=== PATIENT | female | born 1950 | race Caucasian/White ===

== ENCOUNTER → 2016-09-12 | Outpatient (CLI) | payer OTHER ==
[~2016-09-12] MED LIST: AC325T PO; ALPR.25T PO; ALPR0.25 PO; ASP325T PO; ASP81TEC PO; BUPR150T6 PO; CHOL10003; CPR500T; CTLP20T PO; DABI150C2 PO; DIAZEPAM 2.5 MG PO; DILT180C PO; DILT180C54 PO; DILT180C55 PO; ELIQUIS PO; FLT05NA16 NS; HCT25T; HYDR-3812 PO; HYDR1CAP2; HYOS0.1217 PO; LEVO75TA57 PO; MECL25TA56 PO; METO10TA3 PO; NAPR-689 PO; NITR-65 PO; OLME20TA5; OLME40TA14 PO; OMEP20TA33 PO; ONDAN4ODT PO; ONDN4T PO; PANT40SU PO; PNT40TEC; PNT40TEC PO; PROP225C6 PO; PROP225T2 PO; RIVA20TA PO; RIVA20TA2 PO; RNT150T; SCR1T1 PO; SENN-20 PO; SIME125C PO; SIME125T9 PO; TRM50T PO; VALS320T8; [UNRECOGNIZED DRUG - OTHER]; iron sulfate PO
[2016-09-12 10:25] LABS: RED BLOOD COUNT 4.29 10^6/uL (4.35-5.85); WHITE BLOOD COUNT 6.2 10^3/uL (4.3-11.0)
[2016-09-12 10:47] LABS: ALBUMIN 4.1 G/DL (3.2-4.5); BILIRUBIN,TOTAL 0.6 MG/DL (0.1-1.0); CALCIUM 9.6 MG/DL (8.5-10.1); CREATININE SERUM 1.16 MG/DL (0.60-1.30); POTASSIUM 4.5 MMOL/L (3.6-5.0); TOTAL PROTEIN 7.6 G/DL (6.4-8.2)
== END ==
LOC: LAB 10:08
PROVIDERS: ATTEND Internal Medicine Cardiovascular Disease
DX: I10 Essential (primary) hypertension (principal); I48.0 Paroxysmal atrial fibrillation; K92.2 Gastrointestinal hemorrhage, unspecified; F41.9 Anxiety disorder, unspecified; R07.89 Other chest pain
CPT/HCPCS: 36415; 80053; 80061; 85027

== ENCOUNTER 2016-12-07 20:58 | Emergency (ER) | payer OTHER ==
[~2016-12-07] VITALS: Ht 167.6 cm; Wt 93.4 kg
--- NOTE | 2016-12-07 21:14 | ED General ---
General Chief Complaint: General Problems/Pain Stated Complaint: STOMACH PAIN Nursing Triage Note: PT STATES THAT SHE ATE A STEAK ON SUNDAY AND SHE "FEELS LIKE IT IS STILL STUCK INSIDE HER". PT STATES SHE HAS GAINED 6 POUNDS IN 2 DAYS. PT COMPLAINS OF VERY LITTLE BOWEL MOVEMENTS. Nursing Sepsis Screen: No Definite Risk Source of Information: Patient Exam Limitations: No Limitations (MARGO SAXENA APRN) History of Present Illness Time Seen by Provider: 21:12 Initial Comments to ER with reports of constipation. She states that she ate a steak on Sunday and since still not had a significant bowel movement. Intermittent nausea but no vomiting. No fevers or chills. She is currently being treated for urinary tract infection with Cipro. Timing/Duration: 3-4 Days Severity: Moderate Associated Systoms: No Fever/Chills, No Nausea/Vomiting (MARGO SAXENA APRN) Allergies and Home Medications Allergies Coded Allergies: Beta-Blockers (Beta-Adrenergic Bloc (Unverified Allergy, Unknown, 11/20/12) atenolol (Verified Allergy, Unknown, 04/05/07) Home Medications Diltiazem HCl 180 Mg Cap.er.24h, 180 MG PO HS, (Reported) Nitrofurantoin Monohyd/M-Cryst 100 Mg Capsule, 1 TAB PO BID for 7 Days Prescribed by: QASIM CASTILLO on 12/26/15 1209 Pantoprazole Sodium 40 Mg Granpkt.dr, 40 MG PO DAILY, (Reported) Propafenone HCl 225 Mg Cap, 225 MG PO TID, (Reported) Rivaroxaban 20 Mg Tablet, 20 MG PO HS, (Reported) Sennosides/Docusate Sodium 1 Each Tablet, 1 EA PO BID, #30 Prescribed by: ANTHONY PERDOMO on 12/26/15 0950 Constitutional: see HPI, No chills, No fever EENTM: see HPI Respiratory: no symptoms reported Cardiovascular: no symptoms reported Genitourinary: no symptoms reported Musculoskeletal: no symptoms reported Skin: no symptoms reported Psychiatric/Neurological: No Symptoms Reported (MARGO SAXENA APRN) Past Pncaajx-Rqgqzu-Fjdvtw Hx Patient Social History Recent Foreign Travel: No Contact w/Someone Who Travel: No Recent Infectious Disease Expo: No (MARGO SAXENA APRN) Immunizations Up To Date Tetanus Booster (TDap): Unknown PED Vaccines UTD: No Date of Pneumonia Vaccine: Mar 11, 2011 Date of Influenza Vaccine: May 04, 2014 (MARGO SAXENA APRN) Seasonal Allergies Seasonal Allergies: Yes (MARGO SAXENA APRN) Surgeries HX Surgeries: Yes Surgeries: Abdominal, Appendectomy, Cardiac, Section, Gallbladder, 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, Oophorectomy, Orthopedic (MARGO SAXENA APRN) Respiratory Hx Respiratory Disorders: No (MARGO SAXENA APRN) Cardiovascular Hx Cardiac Disorders: Yes (RBBB) Cardiac Disorders: Atrial Fibrillation, Hypertension (MARGO SAXENA APRN) Neurological Hx Neurological Disorders: Yes Neurological Disorders: Headaches /Migraines, Neuropathy (MARGO SAXENA APRN) 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 System Hx 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 Disorders: No Sexually Transmitted Disease: No HIV/AIDS: No Female 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 Disorders: Denies STUDIO GRIP History: 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 (MARGO SAXENA APRN) Genitourinary Hx Genitourinary Disorders: Yes (RENAL INSUFFICIENCY) Genitourinary Disorders: Kidney Infection, Bladder Infection, Renal Failure (MARGO SAXENA APRN) Gastrointestinal Hx Gastrointestinal Disorders: Yes Gastrointestinal Disorders: Gastroesophageal Reflux, Gastrointestinal Bleed, Hiatal Hernia, Gall Bladder Disease (MARGO SAXENA APRN) Musculoskeletal Hx Musculoskeletal Disorders: Yes (KNEES, BACK, HIPS) Musculoskeletal Disorders: Arthritis, Chronic Back Pain (MARGO SAXENA APRN) Endocrine Hx Endocrine Disorders: Yes (Pre Diabetic) Endocrine Disorders: Diabetes, Non-Insulin dep (MARGO SAXENA APRN) HEENT HX ENT Disorders: No Loss of Vision: Denies Hearing Impairment: Denies (MARGO SAXENA APRN) Cancer Hx Cancer: Yes ("SPINAL CORD CANCER" LATE , S/P SURGERY, RADIATION, CHEMO VIA SHUNT) Cancer: Bone (MARGO SAXENA APRN) Psychosocial Hx Psychiatric Problems: Yes Behavioral Health Disorders: Anxiety (MARGO SAXENA APRN) Integumentary HX Skin/Integumentary Disorder: No (MARGO SAXENA APRN) Blood Transfusions Hx Blood Disorders: No Adverse Reaction to a Blood Tr: No (MARGO SAXENA APRN) Family Medical History Significant Family History: Heart Disease Family Medial History: Arthritis 19 MOTHER, Onset:30's - 40 (RA) Cardiovascular disease 19 MOTHER, Onset:40's - 50 Completed stroke 19 MOTHER, Onset:60 years & older Headache disorder 19 FATHER, Onset:Unknown (severe sinus headaches) Hypertension 19 MOTHER, Onset:50's - 60 Myocardial infarction 19 MOTHER, Onset:60 years & older Psychosocial problem 19 FATHER, Onset:Unknown No Family History of: AIDS Abdominal aortic aneurysm Tyler's disease Alcoholism Alzheimer's disease Aphasia Asthma Cancer of mouth Cataracts Colon cancer Congenital disease Congenital heart disease Coronary thrombosis Cystic fibrosis Deafness or hearing loss Dementia Diabetes mellitus Drug abuse Dysphasia Fibrocystic disease of breast Gastroenteritis Glaucoma Hypercholesterolemia Infertility Kidney disease Neoplasm Not obtainable due to adoption Osteoporosis Parkinson's disease Prostate cancer Respiratory disorder Seizure disorder Severe allergy Thyroid disease Tuberculosis Visual disorder (MARGO SAXENA APRN) Family Medial History: Arthritis 19 MOTHER, Onset:30's - 40 (RA) Cardiovascular disease 19 MOTHER, Onset:40's - 50 Completed stroke 19 MOTHER, Onset:60 years & older Headache disorder 19 FATHER, Onset:Unknown (severe sinus headaches) Hypertension 19 MOTHER, Onset:50's - 60 Myocardial infarction 19 MOTHER, Onset:60 years & older Psychosocial problem 19 FATHER, Onset:Unknown No Family History of: AIDS Abdominal aortic aneurysm Sundeep's disease Alcoholism Alzheimer's disease Aphasia Asthma Cancer of mouth Cataracts Colon cancer Congenital disease Congenital heart disease Coronary thrombosis Cystic fibrosis Deafness or hearing loss Dementia Diabetes mellitus Drug abuse Dysphasia Fibrocystic disease of breast Gastroenteritis Glaucoma Hypercholesterolemia Infertility Kidney disease Neoplasm Not obtainable due to adoption Osteoporosis Parkinson's disease Prostate cancer Respiratory disorder Seizure disorder Severe allergy Thyroid disease Tuberculosis Visual disorder (BABAK PINEDO MD) Physical Exam Vital Signs Vital Sign - Last 12Hours 12/07/16 21:07 Temp 97.8 Pulse 86 Resp 20 B/P (MAP) 201/87 Pulse Ox 99 O2 Delivery Room Air (BABAK PINEDO MD) Vital Signs Capillary Refill : Less Than 3 Seconds (MARGO SAXENA APRN) General Appearance: No Apparent Distress, WD/WN Eyes: Bilateral Eye EOMI, Bilateral Eye Normal Inspection, Bilateral Eye PERRL HEENT: PERRL/EOMI, TMs Normal Neck: Full Range of Motion, Normal Inspection Respiratory: Normal Breath Sounds, No Accessory Muscle Use, No Respiratory Distress Cardiovascular: Regular Rate, Rhythm, Normal Peripheral Pulses Gastrointestinal: Normal Bowel Sounds, Non Tender, Soft Back: No Vertebral Tenderness Extremity: Normal Capillary Refill, Normal Inspection Neurologic/Psychiatric: Alert, Oriented x3, No Motor/Sensory Deficits Skin: Normal Color, Warm/Dry (MARGO SAXENA APRN) Progress/Results/Core Measures Results/Orders Lab Results Laboratory Tests Test 12/07/16 21:06 12/07/16 21:46 12/07/16 22:47 12/07/16 23:17 Range/Units White Blood Count 9.6 4.3-11.0 10^3/uL Red Blood Count 3.71 L 4.35-5.85 10^6/uL Hemoglobin 10.4 L 11.5-16.0 G/DL Hematocrit 33 L 35-52 % Mean Corpuscular Volume 88 80-99 FL Mean Corpuscular Hemoglobin 28 25-34 PG Mean Corpuscular Hemoglobin Concent 32 32-36 G/DL Red Cell Distribution Width 15.3 H 10.0-14.5 % Platelet Count 318 130-400 10^3/uL Mean Platelet Volume 9.8 7.4-10.4 FL Neutrophils (%) (Auto) 56 42-75 % Lymphocytes (%) (Auto) 33 12-44 % Monocytes (%) (Auto) 9 0-12 % Eosinophils (%) (Auto) 2 0-10 % Basophils (%) (Auto) 1 0-10 % Neutrophils # (Auto) 5.3 1.8-7.8 X 10^3 Lymphocytes # (Auto) 3.1 1.0-4.0 X 10^3 Monocytes # (Auto) 0.9 0.0-1.0 X 10^3 Eosinophils # (Auto) 0.2 0.0-0.3 10^3/uL Basophils # (Auto) 0.1 0.0-0.1 10^3/uL Sodium Level 142 135-145 MMOL/L Potassium Level 3.8 3.6-5.0 MMOL/L Chloride Level 112 H 98-107 MMOL/L Carbon Dioxide Level 20 L 21-32 MMOL/L Anion Gap 10 5-14 MMOL/L Blood Urea Nitrogen 29 H 7-18 MG/DL Creatinine 1.24 0.60-1.30 MG/DL Estimat Glomerular Filtration Rate 44 BUN/Creatinine Ratio 23 Glucose Level 48 *L 70-105 MG/DL Calcium Level 9.9 8.5-10.1 MG/DL Total Bilirubin 0.3 0.1-1.0 MG/DL Aspartate Amino Transf (AST/SGOT) 19 5-34 U/L Alanine Aminotransferase (ALT/SGPT) 16 0-55 U/L Alkaline Phosphatase 89 40-136 U/L Total Protein 8.0 6.4-8.2 GM/DL Albumin 4.2 3.2-4.5 GM/DL Lipase 59 8-78 U/L Urine Color YELLOW Urine Clarity CLEAR Urine pH 6 5-9 Urine Specific [place] 1.010 L 1.016-1.022 Urine Protein NEGATIVE NEGATIVE Urine Glucose (UA) NEGATIVE NEGATIVE Urine Ketones NEGATIVE NEGATIVE Urine Nitrite NEGATIVE NEGATIVE Urine Bilirubin NEGATIVE NEGATIVE Urine Urobilinogen NORMAL NORMAL MG/DL Urine Leukocyte Esterase 1+ H NEGATIVE Urine RBC (Auto) NEGATIVE NEGATIVE Urine RBC NONE /HPF Urine WBC NONE /HPF Urine Squamous Epithelial Cells 0-2 /HPF Urine Crystals NONE /LPF Urine Bacteria NONE /HPF Urine Casts NONE /LPF Urine Mucus NEGATIVE /LPF Urine Culture Indicated NO Glucometer 83 89 70-110 MG/DL (BABAK PINEDO MD) Medications Given in ED Current Medications Medications Dose Ordered Sig/Larry Route Start Time Stop Time Status Last Admin Dose Admin Dextrose 25 ml ONCE ONCE IV 12/07/16 22:00 12/07/16 22:01 DC 12/07/16 21:56 25 ML Ondansetron HCl 4 mg ONCE ONCE IVP 12/07/16 21:15 12/07/16 21:16 DC 12/07/16 21:38 4 MG (BABAK PINEDO MD) Vital Signs/I&O Vital Sign - Last 12Hours 12/07/16 21:07 Temp 97.8 Pulse 86 Resp 20 B/P (MAP) 201/87 Pulse Ox 99 O2 Delivery Room Air (BABAK PINEDO MD) Blood Pressure Mean: 125 Progress Note : Progress Note CT report was reviewed and patient was dismissed per Margo Saxena' instructions. (BABAK PINEDO MD) Diagnostic Imaging Diagonstic Imaging: CT Plain Films/CT/US/NM/MRI: abdomen, pelvis Comments [facility] report of the CT abdomen and pelvis reviewed. There was abundant stool noted throughout the colon. No other acute abnormalities to account for patient 's symptoms were identified. (BABAK PINEDO MD) Departure Impression Impression: Primary Impression: Constipation Disposition: 01 HOME, SELF-CARE Condition: Stable Departure-Patient Inst. Decision time for Depature: 23:16 (MARGO SAXENA APRN) Referrals: ANTHONY PERDOMO DO (PCP/Family) Primary Care Physician Patient Instructions: Constipation in Adults Add. Discharge Instructions: 1. Laxative as directed. Take one cap full dissolved in a full Glass of water every 6 hours until bowel movement. If you take more than 5 capfuls in one day without bowel movement you should return to the emergency room or follow-up with your regular doctor. 2. Return to ER for any concerns 3. See her doctor next week All discharge instructions reviewed with patient and/or family. Voiced understanding. MARGO SAXENA APRN Dec 07, 2016 21:14 BABAK PINEDO MD Dec 08, 2016 00:05
[2016-12-07] MEDS ORDERED: ONDANSETRON 4 MG/2 ML (SDV) Z0FRAN IVP ONE (21:15)
--- OUTSIDE RECORDS SUMMARY | 2016-12-07 21:18 | XMS REPORT | Continuity of Care Document ---
Author Author [facility] Organization [facility] Address Unknown Phone Unavailable Care Team Providers Care Miller Supervisor Name Role Phone Joyce Sahu PCP [phone] Source Comments Some departments are not documenting in the electronic medical record. If you do not see the information that you expected, contact Release of Information in the Health Information Management department at [phone] for further assistance in locating additional records.[facility] Active Allergies and Adverse Reactions Allergen Noted Date Severity Reactions Comments Atenolol 06/26/2007 HYPOTENSION Beta-Blockers 08/13/2007 SHORTNESS OF BREATH, (Beta-Adrenergic Blocking HYPOTENSION Agts) Current Medications Prescription Sig. Disp. Refills Start End Date Status Date olmesartan (BENICAR) 20 Take 20 mg by mouth Active mg tablet Daily. pantoprazole DR,+, Take 40 mg by mouth Twice Active (PROTONIX) 40 mg tablet Daily. ranitidine,+, (ZANTAC) Take 150 mg by mouth Active 150 mg tablet Twice Daily. diazepam (VALIUM) 5 mg Take 5 mg by mouth Every Active tablet 6 Hours as needed for Anxiety. tramadol,+, (ULTRAM) 50 Take 50 mg by mouth Every Active mg tablet 6 Hours as needed for Pain. hydrocodone/acetaminophen Take 1 Tab by mouth Every Active (VICODIN) 5/500 mg tablet 4 Hours as needed for Pain. Usually takes 1/2 tab once daily propafenone (RYTHMOL) 225 Take 225 mg by mouth Active mg tablet three times daily. diltiazem CD (CARDIZEM Take 180 mg by mouth Active CD) 180 mg capsule daily. rivaroxaban (XARELTO) 20 Take 20 mg by mouth Active mg tab tablet daily. 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 Pulse 67 08/17/2015 2:06 PM MEDICAL RESEARCHER Temperature 36.6 C (97.8 F) 08/17/2015 2:06 PM MEDICAL RESEARCHER Respiratory Rate - - Height 1.676 m (5' 6") 08/17/2015 2:06 PM MEDICAL [employer]EARCHER Weight 92.987 kg (205 lb) 08/17/2015 2:06 PM MEDICAL RESEARCHER Body Mass Index 33.1 08/17/2015 2:06 PM MEDICAL RESEARCHER Oxygen Saturation 100% 08/17/2015 2:06 PM MEDICAL RESEARCHER Plan of Care Health Maintenance Due Date Last Done Comments Hepatitis C Screening 1952 Physical (Comprehensive) 1959 Exam Pertussis Vaccine 1963 Tetanus Vaccine 1969 Cervical Cancer Screening 1973 Breast Cancer Screening 1992 Colorectal Cancer 2002 Screening Shingles Vaccine 2012 Influenza Vaccine 02/09/2017 Results from Last 3 Months Not on file
[2016-12-07 21:19] LABS: BASOPHILS # (AUTO) 0.1 10^3/uL (0.0-0.1); BASOPHILS % (AUTO) 1 % (0-10); EOSINOPHILS # (AUTO) 0.2 10^3/uL (0.0-0.3); EOSINOPHILS % (AUTO) 2 % (0-10); LYMPHOCYTES # (AUTO) 3.1 X 10^3 (1.0-4.0); LYMPHOCYTES % (AUTO) 33 % (12-44); MEAN CORPUSCULAR HEMOGLOBIN 28 PG (25-34); MEAN CORPUSCULAR HGB CONC 32 G/DL (32-36); MEAN CORPUSCULAR VOLUME 88 FL (80-99); MEAN PLATELET VOLUME 9.8 FL (7.4-10.4); MONOCYTES # (AUTO) 0.9 X 10^3 (0.0-1.0); MONOCYTES % (AUTO) 9 % (0-12); NEUTROPHILS # (AUTO) 5.3 X 10^3 (1.8-7.8); NEUTROPHILS % (AUTO) 56 % (42-75); PLATELET COUNT 318 10^3/uL (130-400); RED BLOOD COUNT 3.71 10^6/uL (4.35-5.85); RED CELL DISTRIBUTION WIDTH 15.3 % (10.0-14.5); WHITE BLOOD COUNT 9.6 10^3/uL (4.3-11.0)
--- OUTSIDE RECORDS SUMMARY | 2016-12-07 21:19 | XMS REPORT | Continuity of Care Document ---
Author Author Formerly [facility] Address Unknown Phone Unavailable Allergies Active Description Code Type Severity Reaction Onset Reported/Identified Relationship to Patient Clinical Status Yes atenolol [id number] Drug Allergy Unknown N/A 04/05/2007 Yes Beta-Blockers (Beta-Adrenergic Bloc [id number] Drug Allergy Unknown N/A 11/20/2012 Yes atenolol Drug Allergy N/A N/A 05/27/2014 Medications Problems Date Dx Coded Attending Type Code Diagnosis Diagnosed By 04/09/2009 Ot 789.00 01/24/2011 Ot 300.4 DYSTHYMIC DISORDER 01/24/2011 Ot 401.9 HYPERTENSION NOS 01/24/2011 Ot 560.1 PARALYTIC ILEUS 01/24/2011 Ot 564.00 UNSPEC CONSTIPATION 01/24/2011 Ot 599.0 URIN TRACT INFECTION NOS 01/02/2012 Ot 275.2 DIS MAGNESIUM METABOLISM 01/02/2012 Ot 785.1 PALPITATIONS 06/15/2012 Ot 300.00 ANXIETY STATE NOS 06/15/2012 Ot 397.0 TRICUSPID VALVE DISEASE 06/15/2012 Ot 401.9 HYPERTENSION NOS 06/15/2012 Ot 424.0 MITRAL VALVE DISORDER 06/15/2012 Ot 427.31 ATRIAL FIBRILLATION 06/15/2012 Ot 530.81 ESOPHAGEAL REFLUX 06/15/2012 Ot 722.52 LUMB/LUMBOSAC DISC DEGEN 06/15/2012 Ot 786.50 CHEST PAIN NOS 06/15/2012 Ot V10.89 HX OF MALIGNANCY NEC 06/15/2012 Ot V17.49 FAMILY HISTORY OF OTHER CARDIOVASCULAR D 06/15/2012 Ot V58.69 OTH MED,LT,CURRENT USE 09/15/2012 Ot 427.31 ATRIAL FIBRILLATION 09/29/2012 Ot 401.9 HYPERTENSION NOS 09/29/2012 Ot 427.31 ATRIAL FIBRILLATION 09/29/2012 Ot 593.9 RENAL URETERAL DIS NOS 10/19/2012 ANTHONY PERDOMO DO Ot 300.00 ANXIETY STATE NOS 10/19/2012 RIGO PERDOMO DOQUELINE S Ot 401.9 HYPERTENSION NOS 10/19/2012 RIGO PERDOMO DOQUELINE S Ot 427.31 ATRIAL FIBRILLATION 10/19/2012 RIGO PERDOMO DOQUELINE S Ot 530.81 ESOPHAGEAL REFLUX 10/24/2012 BABAK PINEDO MD Ot 784.0 HEADACHE 10/24/2012 BABAK PINEDO MD Ot 787.02 NAUSEA ALONE 10/24/2012 BABAK PINEDO MD Ot 850.0 CONCUSSION W/O COMA 10/24/2012 BABAK PINEDO MD Ot 910.0 ABRASION HEAD 10/24/2012 BABAK PINEDO MD Ot 959.01 HEAD INJURY, NOS 10/24/2012 BABAK PINEDO MD Ot E000.8 OTHER EXTERNAL CAUSE STATUS 10/24/2012 BABAK PINEDO MD Ot E849.0 ACCIDENT IN HOME 10/24/2012 BABAK PINEDO MD Ot E888.1 FALL STRIKING OBJECT NEC 11/10/2012 BRENDAN QUINTEROS MD R Ot 427.31 ATRIAL FIBRILLATION 11/10/2012 ALDAIR BRADEN, BRENDAN R Ot 599.0 URIN TRACT INFECTION NOS 11/10/2012 ALDAIR BRADEN, BRENDAN R Ot 780.4 DIZZINESS AND GIDDINESS 11/10/2012 BRENDAN QUINTEROS MD R Ot V58.61 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S,LT,CURRENT USE 11/10/2012 BRENDAN QUINTEROS MD R Ot V58.69 OTH MED,LT,CURRENT USE 11/21/2012 BRAVO PERDOMO DOLINE S Ot 285.1 AC POSTHEMORRHAG ANEMIA 11/21/2012 RIGO PERDOMO DOQUELINE S Ot 300.00 ANXIETY STATE NOS 11/21/2012 RIGO PERDOMO DOQUELINE S Ot 401.9 HYPERTENSION NOS 11/21/2012 RIGO PERDOMO DOQUELINE S Ot 427.31 ATRIAL FIBRILLATION 11/21/2012 RIGO PERDOMO DOQUELINE S Ot 530.11 REFLUX ESOPHAGITIS 11/21/2012 RIGO PERDOMO DOQUELINE S Ot 530.81 ESOPHAGEAL REFLUX 11/21/2012 RIGO EPRDOMO DOQUELINE S Ot 578.9 GASTROINTEST HEMORR NOS 11/21/2012 ANTHONY PERDOMO DO Ot 593.9 RENAL URETERAL DIS NOS 11/21/2012 ANTHONY PERDOMO DO Ot E934.2 ADV EFF 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S 12/07/2012 MARIE HAN DO Ot 558.9 NONINF GASTROENTERIT NEC 12/07/2012 MARIE HAN DO Ot 560.1 PARALYTIC ILEUS 12/07/2012 MARIE HAN DO Ot 786.05 SHORTNESS OF BREATH 12/07/2012 MARIE HAN DO Ot 789.06 ABDOMINAL PAIN, EPIGASTRIC 12/07/2012 MARIE HAN DO Ot V58.69 OTH MED,LT,CURRENT USE 04/22/2014 ANTHONY PERDOMO DO Ot 401.9 HYPERTENSION NOS 04/22/2014 ANTHONY PERDOMO DO Ot 427.31 ATRIAL FIBRILLATION 04/22/2014 ANTHONY PERDOMO DO Ot V04.81 ND FOR PROPHYLACTIC VACCIN AND INOCULATI 05/18/2014 LARRY PLUNKETT MD Ot 250.00 DIAB [place] WO COMPL, TYPE II OR UNSPEC TY 05/18/2014 LARRY PLUNKETT MD Ot 300.00 ANXIETY STATE NOS 05/18/2014 LARRY PLUNKETT MD Ot 401.9 HYPERTENSION NOS 05/18/2014 LARRY PLUNKETT MD Ot 427.31 ATRIAL FIBRILLATION 05/18/2014 LARRY PLUNKETT MD Ot 530.81 ESOPHAGEAL REFLUX 05/18/2014 LARRY PLUNKETT MD Ot 553.3 DIAPHRAGMATIC HERNIA 05/18/2014 LARRY PLUNKETT MD Ot 786.09 RESPIRATORY ABNORM NEC 05/18/2014 LARRY PLUNKETT MD Ot 786.59 CHEST PAIN NEC 05/27/2014 BOOKER CARMONA APRN 300.00 ANXIETY UNSPEC 05/27/2014 BOOKER CARMONA APRN 401.1 BENIGN ESSENTIAL HYPERTENSION 06/24/2014 Ot 574.20 06/24/2014 Ot V72.81 06/24/2014 Ot V74.8 06/24/2014 Ot 715.96 06/24/2014 Ot 719.45 06/24/2014 Ot 786.09 06/24/2014 Ot 786.9 06/24/2014 Ot 786.09 06/24/2014 Ot 786.50 06/24/2014 Ot 786.09 06/24/2014 Ot 786.50 06/24/2014 Ot 241.0 06/24/2014 Ot 715.36 06/24/2014 Ot 717.40 06/24/2014 Ot 427.31 06/24/2014 EDVINNDER DO, ANTHONY S Ot 723.1 06/24/2014 ORENDER DO, ANTHONY S Ot 724.2 06/24/2014 ORENDER DO, ANTHONY S Ot 780.4 06/24/2014 ORENDER DO, ANTHONY S Ot 348.89 06/24/2014 ORENDER DO, ANTHONY S Ot 722.52 06/24/2014 ORENDER DO, ANTHONY S Ot 723.1 06/24/2014 ORENDER DO, ANTHONY S Ot 780.4 06/25/2014 GONZÁLEZ BRADEN, DAMON Gunn Ot 401.9 06/25/2014 GONZÁLEZ BRADEN, DAMON Gunn Ot 427.31 06/25/2014 GONZÁLEZ BRADEN, DAMON Gunn Ot 433.10 06/25/2014 GONZÁLEZ BRADEN, DAMON Gunn Ot 433.30 06/25/2014 GONZÁLEZ BRADEN, DAMON Gunn Ot 785.9 06/25/2014 DAMON CLAUDIO MD Ot 786.50 07/27/2014 GONZÁLEZ BRADEN, DAMON Gunn Ot 401.9 07/27/2014 DAMON CLAUDIO MD Ot 427.31 07/27/2014 GONZÁLEZ BRADEN, DAMON Gunn Ot 433.10 07/27/2014 GONZÁLEZ BRADEN, DAMON Gunn Ot 433.30 07/27/2014 DAMON CLAUDIO MD Ot 785.9 07/27/2014 DAMON CLAUDIO MD Ot 786.50 09/10/2014 Ot 574.20 09/10/2014 Ot V72.81 09/10/2014 Ot V74.8 09/10/2014 Ot 715.96 09/10/2014 Ot 719.45 09/10/2014 Ot 786.09 09/10/2014 Ot 786.9 09/10/2014 Ot 786.09 09/10/2014 Ot 786.50 09/10/2014 Ot 786.09 09/10/2014 Ot 786.50 09/10/2014 Ot 241.0 09/10/2014 Ot 715.36 09/10/2014 Ot 717.40 09/10/2014 Ot 427.31 09/10/2014 ORENDER DO, ANTHONY S Ot 723.1 09/10/2014 ORENDER DO, ANTHONY S Ot 724.2 09/10/2014 ORENDER DO, ANTHONY S Ot 780.4 09/10/2014 ORENDER DO, ANTHONY S Ot 348.89 09/10/2014 ORENDER DO, ANTHONY S Ot 722.52 09/10/2014 ORENDER DO, ANTHONY S Ot 723.1 09/10/2014 ORENDER DO, ANTHONY S Ot 780.4 09/10/2014 GONZÁLEZ BRADEN, DAMON Gunn Ot 401.9 09/10/2014 GONZÁLEZ BRADEN, DAMON Gunn Ot 427.31 09/10/2014 GONZÁLEZ BRADEN, DAMON Gunn Ot 433.10 09/10/2014 GONZÁLEZ BRADEN, DAMON Gunn Ot 433.30 09/10/2014 GONZÁLEZ BRADEN, DAMON Gunn Ot 785.9 09/10/2014 DAMON CLAUDIO MD Ot 786.50 09/10/2014 ORENDER DO, ANTHONY S Ot 723.1 09/10/2014 ORENDER DO, ANTHONY S Ot 724.2 09/10/2014 ORENDER DO, ANTHONY S Ot 780.4 09/10/2014 ORENDER DO, ANTHONY S Ot 348.89 09/10/2014 ORENDER DO, ANTHONY S Ot 722.52 09/10/2014 ORENDER DO, ANTHONY S Ot 723.1 09/10/2014 ORENDER DO, ANTHONY S Ot 780.4 09/10/2014 GONZÁLEZ BRADEN, DAMON Gunn Ot 401.9 09/10/2014 GONZÁLEZ BRADEN, DAMON Gunn Ot 427.31 09/10/2014 GONZÁLEZ BRADEN, DAMON Gunn Ot 433.10 09/10/2014 GONZÁLEZ BRADEN, DAMON Gunn Ot 433.30 09/10/2014 GONZÁLEZ BRADEN, DAMON Gunn Ot 785.9 09/10/2014 DAMON CLAUDIO MD Ot 786.50 11/13/2014 Ot 574.20 11/13/2014 Ot V72.81 11/13/2014 Ot V74.8 11/13/2014 Ot 715.96 11/13/2014 Ot 719.45 11/13/2014 Ot 786.09 11/13/2014 Ot 786.9 11/13/2014 Ot 786.09 11/13/2014 Ot 786.50 11/13/2014 Ot 786.09 11/13/2014 Ot 786.50 11/13/2014 Ot 241.0 11/13/2014 Ot 715.36 11/13/2014 Ot 717.40 11/13/2014 Ot 427.31 11/13/2014 ORENDER DO, ANTHONY S Ot 723.1 11/13/2014 ORENDER DO, ANTHONY S Ot 724.2 11/13/2014 ORENDER DO, ANTHONY S Ot 780.4 11/13/2014 ORENDER DO, ANTHONY S Ot 348.89 11/13/2014 ORENDER DO, ANTHONY S Ot 722.52 11/13/2014 ORENDER DO, ANTHONY S Ot 723.1 11/13/2014 ORENDER DO, ANTHONY S Ot 780.4 11/13/2014 GONZÁLEZ BRADEN, DAMON Gunn Ot 401.9 11/13/2014 GONZÁLEZ BRADEN, DAMON Gunn Ot 427.31 11/13/2014 GONZÁLEZ BRADEN, DAMON Gunn Ot 433.10 11/13/2014 GONZÁLEZ BRADEN, DAMON Gunn Ot 433.30 11/13/2014 GONZÁLEZ BRADEN, DAMON Gunn Ot 785.9 11/13/2014 DAMON CLAUDIO MD Ot 786.50 11/13/2014 MARGO JOHNSON INSIDE SALES TERRITORY MANAGER Ot 719.46 JOINT PAIN-L/LEG 11/13/2014 MARGO JOHNSON INS[employer] SALES TERRITORY MANAGER Ot 844.9 SPRAIN OF KNEE LEG NOS 11/13/2014 MARGO JOHNSON INSIDE SALES TERRITORY MANAGER Ot E000.8 OTHER EXTERNAL CAUSE STATUS 11/13/2014 MARGO JOHNSON INS[employer] SALES TERRITORY MANAGER Ot E888.9 FALL NOS 05/10/2015 BABAK PINEDO MD Ot I45.10 UNSPECIFIED RIGHT BUNDLE-BRANCH BLOCK 05/10/2015 BABAK PINEDO MD Ot I48.91 UNSPECIFIED ATRIAL FIBRILLATION 05/10/2015 BABAK PINEDO MD Ot R06.00 DYSPNEA, UNSPECIFIED 05/10/2015 BABAK PINEDO MD Ot R07.89 OTHER CHEST PAIN 05/10/2015 BABAK PINEDO MD Ot R11.0 NAUSEA 05/10/2015 BABAK PINEDO MD Ot R78.9 FINDING OF UNSP SUBSTANCE, NOT NORMALLY 05/10/2015 BABAK PINEDO MD Ot Z79.01 NURSING HOME (CURRENT) USE OF 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 05/10/2015 BABAK PINEDO MD Ot Z85.89 PERSONAL HISTORY OF MALIGNANT NEOPLASM O 05/10/2015 BABAK PINEDO MD Ot Z90.49 ACQUIRED ABSENCE OF OTHER SPECIFIED PART 07/29/2015 KIKO BRADEN, BEST Molina Ot K62.5 07/29/2015 BEST HOOVER MD Ot Z01.818 09/28/2015 Ot 715.36 LOC OSTEOARTH NOS-L/LEG 09/28/2015 Ot 717.40 DERANG LAT MENISCUS NOS 09/28/2015 Ot 427.31 ATRIAL FIBRILLATION 09/28/2015 ORENDER DO, ANTHONY S Ot 723.1 CERVICALGIA 09/28/2015 EDVINNDER DO, ANTHONY S Ot 724.2 LUMBAGO 09/28/2015 EDVINNDER DO, ANTHONY S Ot 780.4 DIZZINESS AND GIDDINESS 09/28/2015 ORENDER DO, ANTHONY S Ot 348.89 OTHER CONDITIONS OF BRAIN 09/28/2015 ORENDER DO, ANTHONY S Ot 722.52 LUMB/LUMBOSAC DISC DEGEN 09/28/2015 EDVINNDER DO, ANTHONY S Ot 723.1 CERVICALGIA 09/28/2015 ORENDER DO, ANTHONY S Ot 780.4 DIZZINESS AND GIDDINESS 09/28/2015 DAMON CLAUDIO MD Ot 401.9 HYPERTENSION NOS 09/28/2015 DAMON CLAUDIO MD Ot 427.31 ATRIAL FIBRILLATION 09/28/2015 DAMON CLAUDIO MD Ot 433.10 CAROTID ARTERY OCCLUSION W O CEREBRAL IN 09/28/2015 DAMON CLAUDIO MD Ot 433.30 MULT BILTRAL ARTERY OCCLUSION WO CEREBRA 09/28/2015 DAMON CLAUDIO MD Ot 785.9 CARDIOVAS SYS SYMP NEC 09/28/2015 DAMON CLAUDIO MD Ot 786.50 CHEST PAIN NOS 09/28/2015 KIKO BRADEN, BEST Molina Ot K62.5 HEMORRHAGE OF ANUS AND RECTUM 09/28/2015 KIKO BRADEN, BEST Molina Ot Z01.818 ENCOUNTER FOR OTHER PREPROCEDURAL EXAMIN 09/28/2015 DAMON CLAUDIO MD Ot 401.9 HYPERTENSION NOS 09/28/2015 DAMON CLAUDIO MD Ot 427.31 ATRIAL FIBRILLATION 09/28/2015 DAMON CLAUDIO MD Ot 433.10 CAROTID ARTERY OCCLUSION W O CEREBRAL IN 09/28/2015 DAMON CLAUDIO MD Ot 433.30 MULT BILTRAL ARTERY OCCLUSION WO CEREBRA 09/28/2015 DAMON CLAUDIO MD Ot 785.9 CARDIOVAS SYS SYMP NEC 09/28/2015 DAMON CLAUDIO MD Ot 786.50 CHEST PAIN NOS 09/28/2015 ORENDER DO, ANTHONY S Ot 348.89 OTHER CONDITIONS OF BRAIN 09/28/2015 ORENDER DO, ANTHONY S Ot 722.52 LUMB/LUMBOSAC DISC DEGEN 09/28/2015 ORENDER DO, ANTHONY S Ot 723.1 CERVICALGIA 09/28/2015 ORENDER DO, ANTHONY S Ot 780.4 DIZZINESS AND GIDDINESS 09/28/2015 ORENDER DO, ANTHONY S Ot 723.1 CERVICALGIA 09/28/2015 ORENDER DO, ANTHONY S Ot 724.2 LUMBAGO 09/28/2015 ORENDER DO, ANTHONY S Ot 780.4 DIZZINESS AND GIDDINESS 10/07/2015 ORENDER DO, ANTHONY S Ot 723.1 CERVICALGIA 10/07/2015 ORENDER DO, ANTHONY S Ot 724.2 LUMBAGO 10/07/2015 ORENDER DO, ANTHONY S Ot 780.4 DIZZINESS AND GIDDINESS 10/07/2015 ORENDER DO, ANTHONY S Ot 348.89 OTHER CONDITIONS OF BRAIN 10/07/2015 ORENDER DO, ANTHONY S Ot 722.52 LUMB/LUMBOSAC DISC DEGEN 10/07/2015 ORENDER DO, ANTHONY S Ot 723.1 CERVICALGIA 10/07/2015 ANTHONY PERDOMO DO S Ot 780.4 DIZZINESS AND GIDDINESS 10/07/2015 DAMON CLAUDIO MD Ot 401.9 HYPERTENSION NOS 10/07/2015 DAMON CLAUDIO MD Ot 427.31 ATRIAL FIBRILLATION 10/07/2015 DAMON CLAUDIO MD Ot 433.10 CAROTID ARTERY OCCLUSION W O CEREBRAL IN 10/07/2015 DAMON CLAUDIO MD Ot 433.30 MULT BILTRAL ARTERY OCCLUSION WO CEREBRA 10/07/2015 DAMON CLAUDIO MD Ot 785.9 CARDIOVAS SYS SYMP NEC 10/07/2015 DAMON CLAUDIO MD Ot 786.50 CHEST PAIN NOS 11/05/2015 ANTHONY PERDOMO DO S Ot D62 ACUTE POSTHEMORRHAGIC ANEMIA 11/05/2015 ANTHONY PERDOMO DO S Ot F41.9 ANXIETY DISORDER, UNSPECIFIED 11/05/2015 ANTHONY PERDOMO DO S Ot G43.909 MIGRAINE, UNSP, NOT INTRACTABLE, WITHOUT 11/05/2015 BRAVO PERDOMO DOLINE S Ot I10 ESSENTIAL (PRIMARY) HYPERTENSION 11/05/2015 ANTHONY PERDOMO DO S Ot I25.10 ATHSCL HEART DISEASE OF [place] CORONARY 11/05/2015 ANTHONY PERDOMO DO S Ot I48.0 PAROXYSMAL ATRIAL FIBRILLATION 11/05/2015 BRAVO PERDOMO DOLINE S Ot K21.9 GASTRO-ESOPHAGEAL REFLUX DISEASE WITHOUT 11/05/2015 BRAVO PERDOMO DOLINE S Ot K92.2 GASTROINTESTINAL HEMORRHAGE, UNSPECIFIED 11/05/2015 ANTHONY PERDOMO DO S Ot M54.9 DORSALGIA, UNSPECIFIED 11/05/2015 BRAVO PERDOMO DOLINE S Ot R29.818 OTHER SYMPTOMS AND SIGNS INVOLVING THE N 11/05/2015 ANTHONY PERDOMO DO S Ot R73.09 OTHER ABNORMAL GLUCOSE 11/05/2015 ANTHONY PERDOMO DO S Ot Y84.8 OT MEDICAL PROCEDURES CAUSE ABN REACT/C 11/05/2015 ANTHONY PERDOMO DO S Ot Z79.01 NURSING HOME (CURRENT) USE OF 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 11/05/2015 ANTHONY PERDOMO DO S Ot Z85.848 PERSONAL HISTORY OF MALIGNANT NEOPLASM O 11/05/2015 CONOR PLATT ANTHONY S Ot Z92.21 PERSONAL HISTORY OF ANTINEOPLASTIC CHEMO 11/05/2015 CONOR PLATT ANTHONY S Ot Z92.3 PERSONAL HISTORY OF IRRADIATION 11/05/2015 CONOR PLATT ANTHONY S Ot D62 ACUTE POSTHEMORRHAGIC ANEMIA 11/05/2015 CONOR PLATT ANTHONY S Ot F41.9 ANXIETY DISORDER, UNSPECIFIED 11/05/2015 CONOR PLATT ANTHONY S Ot G43.909 MIGRAINE, UNSP, NOT INTRACTABLE, WITHOUT 11/05/2015 CONOR PLATT ANTHONY S Ot I10 ESSENTIAL (PRIMARY) HYPERTENSION 11/05/2015 EDVINMORE PLATT ANTHONY S Ot I25.10 ATHSCL HEART DISEASE OF [place] CORONARY 11/05/2015 CONOR PLATT ANTHONY S Ot I48.0 PAROXYSMAL ATRIAL FIBRILLATION 11/05/2015 EDVINMORE PLATT ANTHONY S Ot K21.9 GASTRO-ESOPHAGEAL REFLUX DISEASE WITHOUT 11/05/2015 EDVINMORE PLATT ANTHONY S Ot K92.2 GASTROINTESTINAL HEMORRHAGE, UNSPECIFIED 11/05/2015 EDVINMORE PLATTANTHONY Ot M54.9 DORSALGIA, UNSPECIFIED 11/05/2015 EDVINMORE PLATTANTHONY Ot R29.818 OTHER SYMPTOMS AND SIGNS INVOLVING THE N 11/05/2015 CONOR PLATT ANTHONY S Ot R73.09 OTHER ABNORMAL GLUCOSE 11/05/2015 EDVINMORE PLATT ANTHONY S Ot Y84.8 OT MEDICAL PROCEDURES CAUSE ABN REACT/C 11/05/2015 EDVINMORE PLATT ANTHONY S Ot Z79.01 NURSING HOME (CURRENT) USE OF 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 11/05/2015 EDVINMORE PLATTANTHONY Ot Z85.848 PERSONAL HISTORY OF MALIGNANT NEOPLASM O 11/05/2015 EDVINMORE PLATTANTHONY Ot Z92.21 PERSONAL HISTORY OF ANTINEOPLASTIC CHEMO 11/05/2015 EDVINMORE PLATTANHTONY Ot Z92.3 PERSONAL HISTORY OF IRRADIATION 11/06/2015 EDVINMORE ANTHONY PLATT Ot D62 ACUTE POSTHEMORRHAGIC ANEMIA 11/06/2015 ANTHONY PERDOMO DO Ot F41.9 ANXIETY DISORDER, UNSPECIFIED 11/06/2015 ANTHONY PERDOMO DO Ot G43.909 MIGRAINE, UNSP, NOT INTRACTABLE, WITHOUT 11/06/2015 BRAVO PERDOMO DOLINE S Ot I10 ESSENTIAL (PRIMARY) HYPERTENSION 11/06/2015 ANTHONY PERDOMO DO S Ot I25.10 ATHSCL HEART DISEASE OF [place] CORONARY 11/06/2015 ANTHONY PERDOMO DO S Ot I48.0 PAROXYSMAL ATRIAL FIBRILLATION 11/06/2015 ANTHONY PERDOMO DO S Ot K21.9 GASTRO-ESOPHAGEAL REFLUX DISEASE WITHOUT 11/06/2015 BRAVO PERDOMO DOLINE S Ot K44.9 DIAPHRAGMATIC HERNIA WITHOUT OBSTRUCTION 11/06/2015 CONOR PLATT ANTHONY S Ot K57.30 DVRTCLOS OF LG INT W/O PERFORATION OR AB 11/06/2015 CONOR PLATT ANTHONY S Ot K92.2 GASTROINTESTINAL HEMORRHAGE, UNSPECIFIED 11/06/2015 CONOR PLATT ANTHONY S Ot M54.9 DORSALGIA, UNSPECIFIED 11/06/2015 CONOR PLATT ANTHONY S Ot R29.818 OTHER SYMPTOMS AND SIGNS INVOLVING THE N 11/06/2015 CONOR PLATT ANTHONY S Ot R73.09 OTHER ABNORMAL GLUCOSE 11/06/2015 ANTHONY PERDOMO DO S Ot Y84.8 OTH MEDICAL PROCEDURES CAUSE ABN REACT/C 11/06/2015 CONOR PLATT ANTHONY S Ot Z79.01 NURSING HOME (CURRENT) USE OF 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 11/06/2015 CONOR PLATT ANTHONY S Ot Z85.848 PERSONAL HISTORY OF MALIGNANT NEOPLASM O 11/06/2015 EDVINMORE PLATT ANTHONY S Ot Z92.21 PERSONAL HISTORY OF ANTINEOPLASTIC CHEMO 11/06/2015 CONOR PLATT ANTHONY S Ot Z92.3 PERSONAL HISTORY OF IRRADIATION 11/14/2015 KIKO BRADEN, BEST Molina Ot D64.9 ANEMIA, UNSPECIFIED 11/14/2015 KIKO BRADEN, BEST Molina Ot K44.9 DIAPHRAGMATIC HERNIA WITHOUT OBSTRUCTION 11/14/2015 KIKO BRADEN, BEST Molina Ot K92.2 GASTROINTESTINAL HEMORRHAGE, UNSPECIFIED 11/16/2015 KIKO BRADEN, BEST Molina Ot D64.9 ANEMIA, UNSPECIFIED 11/16/2015 KIKO BRADEN, BEST Molina Ot K44.9 DIAPHRAGMATIC HERNIA WITHOUT OBSTRUCTION 11/16/2015 KIKO BRADEN, BEST M Ot K92.2 GASTROINTESTINAL HEMORRHAGE, UNSPECIFIED 11/16/2015 KIKO BRADEN, BEST M Ot NONE 11/16/2015 KIKO BRADEN, BEST M Ot XX 12/03/2015 KIKO BRADEN, BEST M Ot D64.9 ANEMIA, UNSPECIFIED 12/03/2015 KIKO BRADEN, BEST M Ot K44.9 DIAPHRAGMATIC HERNIA WITHOUT OBSTRUCTION 12/03/2015 KIKO BRADEN, BEST M Ot K92.2 GASTROINTESTINAL HEMORRHAGE, UNSPECIFIED 12/26/2015 ORENDER DO, ANTHONY S Ot F41.9 ANXIETY DISORDER, UNSPECIFIED 12/26/2015 ORENDER DO, ANTHONY S Ot I10 ESSENTIAL (PRIMARY) HYPERTENSION 12/26/2015 ORENDER DO, ANTHONY S Ot I25.10 ATHSCL HEART DISEASE OF [place] CORONARY 12/26/2015 ORENDER DO, ANTHONY S Ot I48.0 PAROXYSMAL ATRIAL FIBRILLATION 12/26/2015 ORENDER DO, ANTHONY S Ot K21.9 GASTRO-ESOPHAGEAL REFLUX DISEASE WITHOUT 12/26/2015 ORENDER DO, ANTHONY S Ot K59.00 CONSTIPATION, UNSPECIFIED 12/26/2015 ORENDER DO, ANTHONY S Ot N39.0 URINARY TRACT INFECTION, SITE NOT SPECIF 12/26/2015 ORENDER DO, ANTHONY S Ot R07.89 OTHER CHEST PAIN 12/26/2015 ORENDER DO, ANTHONY S Ot F41.9 ANXIETY DISORDER, UNSPECIFIED 12/26/2015 ORENDER DO, ANTHONY S Ot I10 ESSENTIAL (PRIMARY) HYPERTENSION 12/26/2015 ORENDER DO, ANTHONY S Ot I25.10 ATHSCL HEART DISEASE OF [place] CORONARY 12/26/2015 ORENDER DO, ANTHONY S Ot I48.0 PAROXYSMAL ATRIAL FIBRILLATION 12/26/2015 ORENDER DO, ANTHONY S Ot K21.9 GASTRO-ESOPHAGEAL REFLUX DISEASE WITHOUT 12/26/2015 ORENDER DO, ANTHONY S Ot K59.00 CONSTIPATION, UNSPECIFIED 12/26/2015 ORENDER DO, ANTHONY S Ot N39.0 URINARY TRACT INFECTION, SITE NOT SPECIF 12/26/2015 ORENDER DO, ANTHONY S Ot R07.89 OTHER CHEST PAIN 01/05/2016 BRAVO PERDOMO DOLINE S Ot Z12.31 ENCNTR SCREEN MAMMOGRAM FOR MALIGNANT NE 01/06/2016 CONOR PLATT, ANTHONY S Ot Z12.31 ENCNTR SCREEN MAMMOGRAM FOR MALIGNANT NE 01/11/2016 CONOR PLATT, ANTHONY S Ot Z12.31 ENCNTR SCREEN MAMMOGRAM FOR MALIGNANT NE 01/26/2016 CONOR PLATT, ANTHONY S Ot Z12.31 ENCNTR SCREEN MAMMOGRAM FOR MALIGNANT NE 02/29/2016 Ot 715.36 LOC OSTEOARTH NOS-L/LEG 02/29/2016 Ot 717.40 DERANG LAT MENISCUS NOS 02/29/2016 Ot 427.31 ATRIAL FIBRILLATION 02/29/2016 CONOR PLATT, ANTHONY S Ot 723.1 CERVICALGIA 02/29/2016 CONOR PLATT, ANTHONY S Ot 724.2 LUMBAGO 02/29/2016 CONOR PLATT, ANTHONY S Ot 780.4 DIZZINESS AND GIDDINESS 02/29/2016 CONOR PLATT ANTHONY S Ot 348.89 OTHER CONDITIONS OF BRAIN 02/29/2016 CONOR PLATT, ANTHONY S Ot 722.52 LUMB/LUMBOSAC DISC DEGEN 02/29/2016 CONOR PLATT, ANTHONY S Ot 723.1 CERVICALGIA 02/29/2016 CONOR PLATT, ANTHONY S Ot 780.4 DIZZINESS AND GIDDINESS 02/29/2016 GONZÁLEZ BRADEN, DAMON Gunn Ot 401.9 HYPERTENSION NOS 02/29/2016 DAMON CLAUDIO MD Ot 427.31 ATRIAL FIBRILLATION 02/29/2016 DAMON CLAUDIO MD Ot 433.10 CAROTID ARTERY OCCLUSION W O CEREBRAL IN 02/29/2016 DAMON CLAUDIO MD Ot 433.30 MULT BILTRAL ARTERY OCCLUSION WO CEREBRA 02/29/2016 DAMON CLAUDIO MD Ot 785.9 CARDIOVAS SYS SYMP NEC 02/29/2016 DAMON CLAUDIO MD Ot 786.50 CHEST PAIN NOS 02/29/2016 BEST HOOVER MD Ot K62.5 HEMORRHAGE OF ANUS AND RECTUM 02/29/2016 BEST HOOVER MD Ot Z01.818 ENCOUNTER FOR OTHER PREPROCEDURAL EXAMIN 02/29/2016 BEST HOOVER MD Ot D64.9 ANEMIA, UNSPECIFIED 02/29/2016 KIKO BRADEN, BEST Molina Ot K44.9 DIAPHRAGMATIC HERNIA WITHOUT OBSTRUCTION 02/29/2016 KIKO BRADEN, BEST Molina Ot K92.2 GASTROINTESTINAL HEMORRHAGE, UNSPECIFIED 02/29/2016 ORENDER DO, ANTHONY S Ot Z12.31 ENCNTR SCREEN MAMMOGRAM FOR MALIGNANT NE 03/01/2016 ORENDER DO, ANTHONY S Ot D64.9 ANEMIA, UNSPECIFIED 03/01/2016 ORENDER DO, ANTHONY S Ot R06.00 DYSPNEA, UNSPECIFIED 03/01/2016 ORENDER DO, ANTHONY S Ot R53.83 OTHER FATIGUE 03/01/2016 ORENDER DO, ANTHONY S Ot R60.9 EDEMA, UNSPECIFIED 03/01/2016 ORENDER DO, ANTHONY S Ot R73.02 IMPAIRED GLUCOSE TOLERANCE (ORAL) 03/22/2016 ORENDER DO, ANTHONY S Ot D64.9 ANEMIA, UNSPECIFIED 03/22/2016 ORENDER DO, ANTHONY S Ot R06.00 DYSPNEA, UNSPECIFIED 03/22/2016 ORENDER DO, ANTHONY S Ot R53.83 OTHER FATIGUE 03/22/2016 ORENDER DO, ANTHONY S Ot R60.9 EDEMA, UNSPECIFIED 03/22/2016 ORENDER DO, ANTHONY S Ot R73.02 IMPAIRED GLUCOSE TOLERANCE (ORAL) 09/12/2016 Ot 427.31 ATRIAL FIBRILLATION 09/12/2016 ORENDER DO, ANTHONY S Ot 723.1 CERVICALGIA 09/12/2016 ORENDER DO, ANTHONY S Ot 724.2 LUMBAGO 09/12/2016 ORENDER DO, ANTHONY S Ot 780.4 DIZZINESS AND GIDDINESS 09/12/2016 ORENDER DO, ANTHONY S Ot 348.89 OTHER CONDITIONS OF BRAIN 09/12/2016 ORENDER DO, ANTHONY S Ot 722.52 LUMB/LUMBOSAC DISC DEGEN 09/12/2016 ORENDER DO, ANTHONY S Ot 723.1 CERVICALGIA 09/12/2016 ORENDER DO, ANTHONY S Ot 780.4 DIZZINESS AND GIDDINESS 09/12/2016 GONZÁLEZ BRADEN, DAMON Gunn Ot 401.9 HYPERTENSION NOS 09/12/2016 DAMON CLAUDIO MD Ot 427.31 ATRIAL FIBRILLATION 09/12/2016 DAMON CLAUDIO MD Ot 433.10 CAROTID ARTERY OCCLUSION W O CEREBRAL IN 09/12/2016 DAMON CLAUDIO MD Ot 433.30 MULT BILTRAL ARTERY OCCLUSION WO CEREBRA 09/12/2016 DAMON CLAUDIO MD Ot 785.9 CARDIOVAS SYS SYMP NEC 09/12/2016 DAMON CLAUDIO MD Ot 786.50 CHEST PAIN NOS 09/12/2016 KIKO BRADEN, BEST Molina Ot K62.5 HEMORRHAGE OF ANUS AND RECTUM 09/12/2016 KIKO BRADEN, BEST Molina Ot Z01.818 ENCOUNTER FOR OTHER PREPROCEDURAL EXAMIN 09/12/2016 KIKO BRADEN, BEST Molina Ot D64.9 ANEMIA, UNSPECIFIED 09/12/2016 KIKO BRADEN, BEST Molina Ot K44.9 DIAPHRAGMATIC HERNIA WITHOUT OBSTRUCTION 09/12/2016 BEST HOOVER MD Ot K92.2 GASTROINTESTINAL HEMORRHAGE, UNSPECIFIED 09/12/2016 ORENDYONNY DO, ANTHONY S Ot Z12.31 ENCNTR SCREEN MAMMOGRAM FOR MALIGNANT NE 09/12/2016 EDVINNDER DO, ANTHONY S Ot D64.9 ANEMIA, UNSPECIFIED 09/12/2016 ORENDER DO, ANTHONY S Ot R06.00 DYSPNEA, UNSPECIFIED 09/12/2016 ORENDER DO, ANTHONY S Ot R53.83 OTHER FATIGUE 09/12/2016 ORENDER DO, ANTHONY S Ot R60.9 EDEMA, UNSPECIFIED 09/12/2016 EDVINNDER DO, ANTHONY S Ot R73.02 IMPAIRED GLUCOSE TOLERANCE (ORAL) 09/22/2016 DAMON CLAUDIO MD Ot F41.9 ANXIETY DISORDER, UNSPECIFIED 09/22/2016 DAMON CLAUDIO MD Ot I10 ESSENTIAL (PRIMARY) HYPERTENSION 09/22/2016 DAMON CLAUDIO MD Ot I48.0 PAROXYSMAL ATRIAL FIBRILLATION 09/22/2016 DAMON CLAUDIO MD Ot K92.2 GASTROINTESTINAL HEMORRHAGE, UNSPECIFIED 09/22/2016 DAMON CLAUDIO MD Ot R07.89 OTHER CHEST PAIN Procedures Code Description Performed By Performed On 45.16 ESOPHAGOGASTRODUODENOSCOPY [EGD] W/CLOSE 11/20/2012 45.23 COLONOSCOPY 11/20 89650 [employer] 2013 88494 SLEEP STUDY ([facility]- SLEEP STUDY) 06/22/2014 [id number] INSPECTION OF UPPER INTESTINAL TRACT, EN 11/05/2015 [id number] INSPECTION OF LOWER INTESTINAL TRACT, EN 11/05/2015 Results Test Result Range Complete blood count (CBC) with automated white blood cell (WBC) differential - 02/29/16 10:01 Blood leukocytes automated count (number/volume) 5.4 10*3/ uL 4.3-11.0 Blood erythrocytes automated count (number/volume) 3.74 10*6 /uL 4.35-5.85 Venous blood hemoglobin measurement (mass/volume) 9.5 g/dL 11.5-16.0 Blood hematocrit (volume fraction) 31 % 35-52 Automated erythrocyte mean corpuscular volume 83 [foz_us] 80-99 Automated erythrocyte mean corpuscular hemoglobin (mass per erythrocyte) 25 pg 25-34 Automated erythrocyte mean corpuscular hemoglobin concentration measurement ( mass/volume) 31 g/dL 32-36 Automated erythrocyte distribution width ratio 18.4 % 10.0-14.5 Automated blood platelet count (count/volume) 318 10*3/uL 130-400 Automated blood platelet mean volume measurement 9.3 [foz_us ] 7.4-10.4 Automated blood neutrophils/100 leukocytes 55 % 42-75 Automated blood lymphocytes/100 leukocytes 34 % 12-44 Blood monocytes/100 leukocytes 9 % 0-12 Automated blood eosinophils/100 leukocytes 2 % 0-10 Automated blood basophils/100 leukocytes 1 % 0-10 Blood neutrophils automated count (number/volume) 3.0 10*3 1.8-7.8 Blood lymphocytes automated count (number/volume) 1.8 10*3 1.0-4.0 Blood monocytes automated count (number/volume) 0.5 10*3 0.0-1.0 Automated eosinophil count 0.1 10*3/uL 0.0-0.3 Automated blood basophil count (count/volume) 0.1 10*3/uL 0.0-0.1 Comprehensive metabolic panel - 02/29/16 10:01 Serum or plasma sodium measurement (moles/volume) 140 mmol/ L 135-145 Serum or plasma potassium measurement (moles/volume) 4.2 mmol/L 3.6-5.0 Serum or plasma chloride measurement (moles/volume) 108 mmol /L 98-107 Carbon dioxide 22 mmol/L 21-32 Serum or plasma anion gap determination (moles/volume) 10 mmol/L 5-14 Serum or plasma urea nitrogen measurement (mass/volume) 24 mg/dL 7-18 Serum or plasma creatinine measurement (mass/volume) 1.01 mg /dL 0.60-1.30 Serum or plasma urea nitrogen/creatinine mass ratio 24 NRG Serum or plasma creatinine measurement with calculation of estimated glomerular filtration rate 55 NRG Serum or plasma glucose measurement (mass/volume) 93 mg/dL 70-105 Serum or plasma calcium measurement (mass/volume) 9.3 mg/dL 8.5-10.1 Serum or plasma total bilirubin measurement (mass/volume) 0.5 mg/dL 0.1-1.0 Serum or plasma alkaline phosphatase measurement (enzymatic activity/volume) 101 U/L 40-136 Serum or plasma aspartate aminotransferase measurement (enzymatic activity/ volume) 14 U/L 5-34 Serum or plasma alanine aminotransferase measurement (enzymatic activity/volume ) 14 U/L 0-55 Serum or plasma protein measurement (mass/volume) 6.9 g/dL 6.4-8.2 Serum or plasma albumin measurement (mass/volume) 4.0 g/dL 3.2-4.5 Fibrin D-dimer FEU measurement in platelet poor plasma (mass/volume) - 10:01 Fibrin D-dimer FEU measurement in platelet poor plasma (mass/volume) 0.31 ug/mL 0.00-0.49 Serum or plasma lithium measurement (moles/volume) - 02/29/16 10:01 BNP level 162.2 pg/mL <100.0 Hemoglobin A1c - 02/29/16 10:01 Hemoglobin A1c 5.0 % 4.5-6.2 THYROID STIMULATING HORMONE - 02/29/16 10:01 THYROID STIMULATING HORMONE 1.91 u[iU]/mL 0.35-4.94 Serum or plasma thyroxine (T4) free measurement (mass/volume) - 02/29/16 10:01 Serum or plasma thyroxine (T4) free measurement (mass/volume) 0.99 ng/dL 0.70-1.48 Serum iron and total iron binding capacity panel - 02/29/16 10:01 Serum or plasma iron measurement (mass/volume) 21 % 35-180 Total iron binding capacity and transferrin saturation measurement 5 % 15-50 Iron binding capacity [mass/volume] in serum or plasma 440 % 280-380 UIBC (unsaturated iron binding capacity) 419 % 55-450 Serum or plasma ferritin measurement (mass/volume) 10 % 15-150 Cyanocobalamin measurement - 02/29/16 10:01 Vitamin B12 360 pg/mL 200-1000 25-hydroxyvitamin D measurement - 02/29/16 10:01 25-hydroxy vitamin D measurement 19 % 30- 100 Encounters ACCT No. Visit Date/Time Discharge Status Pt. Type Provider Facility Loc./Unit Complaint [id number] 05/27/2014 14:11:00 05/27/2014 23: 59:59 CLS Outpatient BOOKER CARMONA APRN R
[2016-12-07 21:37] LABS: ALBUMIN 4.2 GM/DL (3.2-4.5); BILIRUBIN,TOTAL 0.3 MG/DL (0.1-1.0); CALCIUM 9.9 MG/DL (8.5-10.1); CREATININE SERUM 1.24 MG/DL (0.60-1.30)
[2016-12-07 21:43] LABS: POTASSIUM 3.8 MMOL/L (3.6-5.0)
[2016-12-07] MEDS ORDERED: DEXTROSE 50% 50 ML (IMS) SYR ONE (21:47)
[2016-12-07 21:56] LABS: BILIRUBIN,URINE NEGATIVE (NEGATIVE); KETONES,URINE NEGATIVE (NEGATIVE); LEUKOCYTE ESTERASE ,URINE 1+ (NEGATIVE); NITRITE,URINE NEGATIVE (NEGATIVE); PH,URINE 6 (5-9); PROTEIN,URINE NEGATIVE (NEGATIVE); UROBILINOGEN,URINE NORMAL (NORMAL)
[2016-12-07] MEDS ORDERED: DEXTROSE 50% 50 ML (IMS) SYR IV ONE (22:00)
[2016-12-07 22:07] LABS: SQUAMOUS EPITHELIAL CELL,UR 0-2 /HPF
[2016-12-08 00:15] VITALS: BP 160/87
--- NOTE | 2016-12-08 08:58 | Diagnostic Imaging Report ---
PROCEDURE: CT abdomen and pelvis with contrast. TECHNIQUE: Multiple contiguous axial images were obtained through the abdomen and pelvis after administration of intravenous contrast. INDICATION: Abdominal pain. 100 mL of Omnipaque 350 is administered intravenously. FINDINGS: The lung bases demonstrate minimal atelectasis. The liver, the spleen, and adrenal glands appear unremarkable. Cholecystectomy clips are seen. There is a cystic density lesion seen in the uncinate process of the pancreas measuring 1.8 CM in size. This was seen on 2013 CT scan measuring 1.1 CM. 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 There is no solid or enhancing component identified. The kidneys demonstrate bilateral mild atrophy. There is symmetric enhancement, however, and symmetric contrast excretion. There is no hydronephrosis. The urinary bladder is mildly distended with no focal lesion seen. The abdominal aorta is normal in caliber. No para-aortic significantly enlarged lymph node is noted. There is suggestion of prior hysterectomy. Moderate amount of fecal material is seen in the colon. There is no bowel obstruction. The appendix is not seen. There is evidence of prior back surgery and lumbar spine laminectomy. There is densities in the posterior back, may relate to bone graft material and chronic appearing defect in the subcutaneous tissues in the midline in the back of the lower lumbar spine levels. The osseous structures demonstrate suggestion of osteopenia and prominent degenerative disc changes. IMPRESSION: 1. There is a moderate amounts of fecal material seen in the colon and rectum, may relate to constipation. 2. Cystic lesion measuring 1.8 CM in the uncinate process of the pancreas is larger compared to 2013 exam suggestive of a low-grade cystic neoplasm of the pancreas. This can be further evaluated with endoscopic ultrasound if needed. Dictated by: Dictated on workstation # [id number]
== END 2016-12-08 00:15 | disposition home or self-care (01) ==
LOC: EDUNIT# 20:58 → ER 21:01
DX: K59.00 Constipation, unspecified (principal); I48.91 Unspecified atrial fibrillation; I10 Essential (primary) hypertension; E11.9 Type 2 diabetes mellitus without complications; K21.9 Gastro-esophageal reflux disease without esophagitis; Z79.899 Other long term (current) drug therapy
CPT/HCPCS: 36415; 74177; 80053; 81000; 82962; 83690; 85025; 96374; 96375

== ENCOUNTER 2017-03-11 22:28 | Emergency (ER) | payer OTHER ==
[~2017-03-11] VITALS: Ht 167.6 cm; Wt 89.8 kg
--- OUTSIDE RECORDS SUMMARY | 2017-03-11 22:33 | XMS REPORT | Clinical Summary ---
Author Author [facility] Organization [facility] Address Unknown Phone Unavailable Care Team Providers Care Jointer Submarine Cable Name Role Phone PCP Unavailable Source Comments Some departments are not documenting in the electronic medical record. If you do not see the information that you expected, contact Release of Information in the Health Information Management department at [phone] for further assistance in locating additional records.[facility] Allergies Active Allergy Reactions Severity Noted Date Comments Atenolol HYPOTENSION 06/26/2007 Beta-Blockers SHORTNESS OF BREATH, 08/13/2007 (Beta-Adrenergic Blocking HYPOTENSION Agts) Current Medications Prescription [...] of submandibular gland 05/14/2008 Thyroid nodule 06/27/2007 Family History Medical History Relation Name Comments Cancer Father Heart Failure Maternal Aunt Stroke Maternal Aunt Heart Failure Maternal Grandfather Stroke Maternal Grandfather Heart Failure Maternal Grandmother Stroke Maternal Grandmother Heart Failure Maternal Uncle Stroke Maternal Uncle Arthritis-rheumatoid Mother Heart Failure Mother Stroke Mother Diabetes Paternal Grandmother Relation Name Status Comments Father Maternal Aunt Maternal Grandfather Maternal Grandmother Maternal Uncle Mother Paternal Grandmother Social History Tobacco Use Types Packs/Day Years Used Date Never Smoker Alcohol Use Drinks/Week oz/Week Comments No Sex Assigned at Date Recorded Not on file Last Filed Vital Signs Vital Sign Reading Time Taken Blood Pressure 154/83 08/17/2015 2:06 PM CHIEF ENGINEER RESEARCH Pulse 67 08/17/2015 2:06 PM CHIEF ENGINEER RESEARCH Temperature 36.6 C (97.8 F) 08/17/2015 2:06 PM CHIEF ENGINEER RESEARCH Respiratory Rate - - Oxygen Saturation 100% 08/17/2015 2:06 PM CHIEF ENGINEER RESEARCH Inhaled Oxygen - - Concentration Weight 93 kg (205 lb) 08/17/2015 2:06 PM CHIEF ENGINEER RESEARCH Height 167.6 cm (5' 6") 08/17/2015 2:06 PM CHIEF ENGINEER RESEARCH Body Mass Index 33.09 08/17/2015 2:06 PM CHIEF ENGINEER RESEARCH Plan of Treatment Health Maintenance Due Date Last Done Comments HEPATITIS C SCREENING 1952 PHYSICAL (COMPREHENSIVE) 1959 EXAM PERTUSSIS VACCINE 1963 TETANUS VACCINE 1969 CERVICAL CANCER SCREENING 1982 BREAST CANCER SCREENING 1992 COLORECTAL CANCER 2002 SCREENING SHINGLES VACCINE 2012 INFLUENZA VACCINE 03/11/2017 Results Not on filefrom Last 3 Months
[2017-03-11 22:47] LABS: BILIRUBIN,URINE NEGATIVE (NEGATIVE); KETONES,URINE NEGATIVE (NEGATIVE); LEUKOCYTE ESTERASE ,URINE 2+ (NEGATIVE); NITRITE,URINE NEGATIVE (NEGATIVE); PH,URINE 6 (5-9); PROTEIN,URINE NEGATIVE (NEGATIVE); UROBILINOGEN,URINE NORMAL (NORMAL)
[2017-03-11 22:58] LABS: WBC,URINE 0-2 /HPF
--- NOTE | 2017-03-11 23:37 | ED Abdominal Pain ---
General Chief Complaint: Abdominal/GI Problems Stated Complaint: RT SIDED ABDOMINAL PAIN Nursing Triage Note: PT TO ED 7 W/ C/O CHRONIC ABD PAIN WORSE TODAY. PT REPORTS SHE HAS NO FEELING FROM THE WAIST DOWN R/T RADIATION THERAPY 30YRS AGO. STATES THE LAST TIME SHE FELT THIS WAY SHE WAS "FULL OF EXCREMENT" Sepsis Screen: No Definite Risk Source of Information: Patient, Old Records Exam Limitations: No Limitations History of Present Illness Time Seen By Provider: 22:32 Initial Comments Sully presents to the emergency room with complaints of right upper quadrant pain. She has pain in the right upper quadrant with inspiration and therefore sometimes feels a little short of breath. She has had prior problems with abdominal pain related to constipation. She is chronically constipated and takes Senokot every day to maintain bowel movements. She was evaluated in November when a CT scan was performed. In addition to constipation, a cystic lesion on the pancreas with enlargement since 2012 was noted. Follow-up with endoscopic ultrasound was suggested. Patient reports she is seeking referral to gastroenterology. Patient has chronic problems with GI motility and has very poor appetite as a result. She has had spinal surgeries and is partially paraplegic as a result. She also has problems with chronic urine retention. She has difficulty with detecting voiding sensation prior to urinating. She did eat a bowl of reason brain with milk earlier in the day. She reports milk is often not tolerated well. Allergies and Home Medications Allergies Coded Allergies: Beta-Blockers (Beta-Adrenergic Bloc (Unverified Allergy, Unknown, 11/20/12) atenolol (Verified Allergy, Unknown, 04/05/07) Home Medications Diltiazem HCl 180 Mg Cap.er.24h, 180 MG PO HS, (Reported) Nitrofurantoin Monohyd/M-Cryst 100 Mg Capsule, 1 TAB PO BID for 7 Days Prescribed by: QASIM CASTILLO on 12/26/15 1209 Pantoprazole Sodium 40 Mg Granpkt.dr, 40 MG PO DAILY, (Reported) Propafenone HCl 225 Mg Cap, 225 MG PO TID, (Reported) Rivaroxaban 20 Mg Tablet, 20 MG PO HS, (Reported) Sennosides/Docusate Sodium 1 Each Tablet, 1 EA PO BID, #30 Prescribed by: ANTHONY PERDOMO on 12/26/15 0950 Review of Systems Constitutional: no symptoms reported EENTM: No Symptoms Reported Respiratory: No Symptoms Reported Cardiovascular: No Symptoms Reported Gastrointestinal: No Symptoms Reported Genitourinary: See HPI Musculoskeletal: no symptoms reported Skin: no symptoms reported Psychiatric/Neurological: See HPI Endocrine: No Symptoms Reported Past Jyxsvza-Qqkkae-Ihrqdr Hx Patient Social History Alcohol Use: Denies Use Recreational Drug Use: No Smoking Status: Never a Smoker 2nd Hand Smoke Exposure: No Recent Foreign Travel: No Contact w/Someone Who Travel: No Recent Infectious Disease Expo: No Recent Hopitalizations: No Physical Abuse: No Sexual Abuse: No Mistreated: No Fear: No Immunizations Up To Date Tetanus Booster (TDap): Unknown PED Vaccines UTD: No Date of Pneumonia Vaccine: Mar 11, 2011 Date of Influenza Vaccine: May 04, 2014 Seasonal Allergies Seasonal Allergies: Yes Surgeries History of Surgeries: Yes Surgeries: Abdominal, Appendectomy, Cardiac, Section, Gallbladder, 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, Oophorectomy, Orthopedic (spinal surgeries) Respiratory History of Respiratory Disorde: No Currently Using CPAP: No Currently Using BIPAP: No Cardiovascular History of Cardiac Disorders: Yes (RBBB) Cardiac Disorders: Atrial Fibrillation, Hypertension Neurological History of Neurological Disord: Yes Neurological Disorders: Headaches /Migraines, Neuropathy 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 System Hx 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 Disorders: No Sexually Transmitted Disease: No HIV/AIDS: No Female 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 Disorders: Denies MANAGER CORPORATE RESPONSIBILITY History: 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 Genitourinary History of Genitourinary Disor: Yes Genitourinary Disorders: Kidney Infection, Bladder Infection, Renal Failure Gastrointestinal History of Gastrointestinal Di: Yes Gastrointestinal Disorders: Gastroesophageal Reflux, Gastrointestinal Bleed, Chronic Constipation, Hiatal Hernia, Gall Bladder Disease Musculoskeletal History of Musculoskeletal Dis: Yes (KNEES, BACK, HIPS) Musculoskeletal Disorders: Arthritis, Chronic Back Pain Endocrine History of Endocrine Disorders: Yes (Pre Diabetic) Endocrine Disorders: Diabetes, Non-Insulin dep HEENT History of HEENT Disorders: No Loss of Vision: Denies Hearing Impairment: Denies Cancer History of Cancer: Yes ("SPINAL CORD CANCER" LATE , S/P SURGERY, RADIATION, CHEMO VIA SHUNT) Cancer: Bone Psychosocial History of Psychiatric Problem: Yes Behavioral Health Disorders: Anxiety Suicide Risk Score: 0 Integumentary History of Skin or Integumenta: No Blood Transfusions History of Blood Disorders: No Adverse Reaction to a Blood Tr: No Family Medical History Significant Family History: Heart Disease Family Medial History: Arthritis 19 MOTHER, Onset:30's - 40 (RA) Cardiovascular disease 19 MOTHER, Onset:40's - 50 Completed stroke 19 MOTHER, Onset:60 years & older Headache disorder 19 FATHER, Onset:Unknown (severe sinus headaches) Hypertension 19 MOTHER, Onset:50's - 60 Myocardial infarction 19 MOTHER, Onset:60 years & older Psychosocial problem 19 FATHER, Onset:Unknown No Family History of: AIDS Abdominal aortic aneurysm [place]'s disease Alcoholism Alzheimer's disease Aphasia Asthma Cancer of mouth Cataracts Colon cancer Congenital disease Congenital heart disease Coronary thrombosis Cystic fibrosis Deafness or hearing loss Dementia Diabetes mellitus Drug abuse Dysphasia Fibrocystic disease of breast Gastroenteritis Glaucoma Hypercholesterolemia Infertility Kidney disease Neoplasm Not obtainable due to adoption Osteoporosis Parkinson's disease Prostate cancer Respiratory disorder Seizure disorder Severe allergy Thyroid disease Tuberculosis Visual disorder Physical Exam Vital Signs VS - Last 72 Hours, by Label 03/11/17 03/11/17 22:31 23:40 Temp 97.2 Pulse 70 0 Resp 20 0 B/P (MAP) 164/74 Pulse Ox 100 0 O2 Delivery Room Air Capillary Refill : Less Than 3 Seconds General Appearance: WD/WN, no apparent distress HEENT: PERRL/EOMI, normal ENT inspection Neck: normal inspection Respiratory: lungs clear, normal breath sounds, no respiratory distress, no accessory muscle use Cardiovascular: regular rate, rhythm, no edema, systolic murmur Gastrointestinal: soft, abnormal bowel sounds (decreased), tenderness (right upper quadrant) Extremities: normal inspection, no pedal edema Neurologic/Psychiatric: clinical lab technologist II-XII nml as tested, alert, normal mood/affect, oriented x 3 Skin: normal color, warm/dry Progress/Results/Core Measures Results/Orders Lab Results Laboratory Tests Test 03/11/17 22:35 Range/Units Urine Color YELLOW Urine Clarity CLEAR Urine pH 6 5-9 Urine Specific [place] 1.015 L 1.016-1.022 Urine Protein NEGATIVE NEGATIVE Urine Glucose (UA) NEGATIVE NEGATIVE Urine Ketones NEGATIVE NEGATIVE Urine Nitrite NEGATIVE NEGATIVE Urine Bilirubin NEGATIVE NEGATIVE Urine Urobilinogen NORMAL NORMAL MG/DL Urine Leukocyte Esterase 2+ H NEGATIVE Urine RBC (Auto) NEGATIVE NEGATIVE Urine RBC NONE /HPF Urine WBC 0-2 /HPF Urine Squamous Epithelial Cells 5-10 /HPF Urine Crystals NONE /LPF Urine Bacteria TRACE /HPF Urine Casts NONE /LPF Urine Mucus NEGATIVE /LPF Urine Culture Indicated NO My Orders Orders - BABAK PINEDO MD Ua Culture If Indicated (03/11/17 22:32) Chest Pa/Lat (2 View) (03/11/17 22:50) Abdomen, Flat & Upright/Decub (03/11/17 22:50) Vital Signs/I&O Vital Sign - Last 12Hours 03/11/17 03/11/17 22:31 23:40 Temp 97.2 Pulse 70 0 Resp 20 0 B/P (MAP) 164/74 Pulse Ox 100 0 O2 Delivery Room Air Blood Pressure Mean: 104 Progress Note : Progress Note Based on patient's history and x-ray findings, I suspect her pain is caused by constipation. We discussed using MiraLAX. Dulcolax suppositories for further treatment of constipation. If this does not resolve her pain, further workup may be needed, especially in context of the prior pancreatic cystic lesion identified on the prior CT. Diagnostic Imaging Diagonstic Imaging: Xray Plain Films/CT/US/NM/MRI: abdomen, pelvis Comments X-ray of the abdomen and pelvis were reviewed by me and showed significant amount of stool in the proximal and distal colon with significant amount of bowel gas in between, especially in the right upper quadrant. Constipation was suggested. There was no evidence of obstruction and there were no air-fluid levels. Radiologist interpretation is pending. Departure Impression Impression: Primary Impression: Right upper quadrant abdominal pain Additional Impression: Constipation Qualified Codes: K59.01 - Slow transit constipation Disposition: HOME, SELF-CARE Condition: Stable Departure-Patient Inst. Decision time for Depature: 23:30 Referrals: ANTHONY PERDOMO DO (PCP/Family) Primary Care Physician Patient Instructions: Constipation, Adult (DC) Add. Discharge Instructions: Drink plenty of clear liquids. Try using MiraLAX (polyethylene glycol) 1-2 capfuls daily until good bowel movements are produced. You may also try Dulcolax suppositories. Follow-up with Dr. PERDOMO sometime in the next couple of weeks. You may also discuss prokinetic medications such as Reglan to help your bowels move. Return to the ER if symptoms worsen. You may increase your Tylenol (acetaminophen) use up to 1000 mg every 6 hours as needed. All discharge instructions reviewed with patient and/or family. Voiced understanding. Copy Copies To 1: ANTHONY PERDOMO JOSHUA T MD Mar 11, 2017 23:37
[2017-03-11 23:40] VITALS: BP 0/0
--- NOTE | 2017-03-12 07:18 | Diagnostic Imaging Report ---
INDICATION: Chronic abdominal pain. PA and lateral chest. Heart size and pulmonary vascularity are normal. Lungs are clear. There are no effusions or pneumothoraces. IMPRESSION: Negative chest. Dictated by: Dictated on workstation # [id number]
--- NOTE | 2017-03-12 07:19 | Diagnostic Imaging Report ---
INDICATION: Abdominal pain. Patient has had previous laminectomy and fusion of the lumbar spine. The gallbladder is surgically absent. Bowel gas pattern is unremarkable. There is a moderate of stool in the descending and rectosigmoid colon. IMPRESSION: Moderate of stool in the left side of the colon that could be due to constipation. Dictated by: Dictated on workstation # [id number]
== END 2017-03-11 23:40 | disposition home or self-care (01) ==
LOC: EDUNIT# 22:28 → ER 22:30
DX: K59.00 Constipation, unspecified (principal); F41.9 Anxiety disorder, unspecified; E11.40 Type 2 diabetes mellitus with diabetic neuropathy, unspecified; M17.4 Other bilateral secondary osteoarthritis of knee; M47.9 Spondylosis, unspecified; M16.0 Bilateral primary osteoarthritis of hip; K21.9 Gastro-esophageal reflux disease without esophagitis; G43.909 Migraine, unspecified, not intractable, without status migrainosus; I48.91 Unspecified atrial fibrillation; I10 Essential (primary) hypertension; Z90.49 Acquired absence of other specified parts of digestive tract; Z87.59 Personal history of other complications of pregnancy, childbirth and the puerperium; Z90.710 Acquired absence of both cervix and uterus
CPT/HCPCS: 71020; 74020; 81000; 99282

== ENCOUNTER 2017-03-12 11:31 | Emergency (ER) | payer OTHER ==
[~2017-03-12] VITALS: Ht 167.6 cm; Wt 89.8 kg
--- OUTSIDE RECORDS SUMMARY | 2017-03-12 11:38 | XMS REPORT | Clinical Summary ---
Author Author [facility] Organization [facility] Address Unknown Phone Unavailable Care Team Providers Care Stock Room Manager Name Role Phone PCP Unavailable Source Comments Some departments are not documenting in the electronic medical record. If you do not see the information that you expected, contact Release of Information in the Health Information Management department at [phone] for further assistance in locating additional records.[facility] Allergies Active Allergy Reactions Severity Noted Date [...] Taken Blood Pressure 154/83 08/17/2015 2:06 PM BULLDOZER MECHANIC Pulse 67 08/17/2015 2:06 PM BULLDOZER MECHANIC Temperature 36.6 C (97.8 F) 08/17/2015 2:06 PM BULLDOZER MECHANIC Respiratory Rate - - Oxygen Saturation 100% 08/17/2015 2:06 PM BULLDOZER MECHANIC Inhaled Oxygen - - Concentration Weight 93 kg (205 lb) 08/17/2015 2:06 PM BULLDOZER MECHANIC Height 167.6 cm (5' 6") 08/17/2015 2:06 PM BULLDOZER MECHANIC Body Mass Index 33.09 08/17/2015 2:06 PM BULLDOZER MECHANIC Plan of Treatment Health Maintenance Due Date Last Done Comments HEPATITIS C SCREENING 1952 PHYSICAL (COMPREHENSIVE) 1959 EXAM PERTUSSIS VACCINE 1963 TETANUS VACCINE 1969 CERVICAL CANCER SCREENING 1982 BREAST CANCER SCREENING 1992 COLORECTAL CANCER 2002 SCREENING SHINGLES VACCINE 2012 INFLUENZA VACCINE 03/11/2017 Results Not on filefrom Last 3 Months
--- NOTE | 2017-03-12 12:11 | ED Neurological Problem ---
General Chief Complaint: Dizziness/Syncope Stated Complaint: WEAKNESS/VISION DISTURBANCE Nursing Triage Note: PT STATES HAVING A NEAR SYNCOPAL EPISODE, DID NOT PASS OUT, STATES THIS HAS HAPPENED A FEW TIMES OVER THE LAST MONTH. HX OF A SHUNT IN HER HEAD FOR TREATMENT OF CA. Nursing Sepsis Screen: No Definite Risk Source: patient, family Exam Limitations: no limitations History of Present Illness Time seen by provider: 11:52 Initial Comments Patient presents to ER by private conveyance with her family members with a chief complaint that this morning she had a sudden onset of tunnel vision with blackness around the edges of her vision and seeing white flashes everywhere. She also started feeling very weak and rubbery. She had no speech problems or facial asymmetry according to family who are with her. She still feels very rubbery and weak although the visual disturbances went away. Minutes. She has no history of retinal attachment. 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 She had MRIs at [facility] a few months ago that were apparently normal when she saw her neurologist at [facility]. She is having no shortness breath, chest pain, cough, nausea, vomiting, fatigue. 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 She was in the ER last night for right upper quadrant abdominal pain and was given MiraLAX and has had a bowel movement since and in no symptoms of her abdominal pain have resolved this morning. She's had her gallbladder and appendix out. She is not diabetic however she was told she is prediabetic EMS reports her sugar was 110 on route. She said about a month ago she was seen by Dr. Mcfarland, cardiology and he heard a bruit on her neck so he did a ultrasound of her carotids in the office; as far she knows it was normal. She's had an echocardiogram within the last 5 years does not remember anything wrong with it. She has a history of atrial fibrillation for which she takes Xarelto. Allergies and Home Medications Allergies Coded Allergies: Beta-Blockers (Beta-Adrenergic Bloc (Unverified Allergy, Unknown, 11/20/12) atenolol (Verified Allergy, Unknown, 04/05/07) Home Medications Diltiazem HCl 180 Mg Cap.er.24h, 180 MG PO HS, (Reported) Nitrofurantoin Monohyd/M-Cryst 100 Mg Capsule, 1 TAB PO BID for 7 Days Prescribed by: QASIM CASTILLO on 12/26/15 1209 Pantoprazole Sodium 40 Mg Tripp.dr, 40 MG PO DAILY, (Reported) Propafenone HCl 225 Mg Cap, 225 MG PO TID, (Reported) Rivaroxaban 20 Mg Tablet, 20 MG PO HS, (Reported) Sennosides/Docusate Sodium 1 Each Tablet, 1 EA PO BID, #30 Prescribed by: ANTHONY SAHU on 12/26/15 0950 Constitutional: No chills, No diaphoresis, No fever, malaise, weakness Eyes: See HPI, Blindness (peripheral vision bilaterally), Denies Blurred Vision , Denies Drainage, Denies Decreased Acuity Ears, Nose, Mouth, Throat: denies ear pain, denies nose pain Respiratory: No cough, No short of breath Cardiovascular: No chest pain, No palpitations, other (history of atrial fibrillation) Gastrointestinal: No abdominal pain, No constipation, No diarrhea, No loss of appetite, No nausea, No vomiting Genitourinary: No discharge, No dysuria : No Musculoskeletal: No back pain, No joint pain Skin: No pruritus, No rash Psychiatric/Neurological: Denies Cognitive Dysfunction, Headache (bandlike tension all around her head like a ball cap), Denies Numbness, Denies [place] Seizures, Denies Tingling, Denies Tonic Clonic Seizures Past Gkmywkz-Ljmlln-Bxbyyy Hx Patient Social History Alcohol Use: Denies Use Recreational Drug Use: No Smoking Status: Never a Smoker 2nd Hand Smoke Exposure: No Recent Foreign Travel: No Contact w/Someone Who Travel: No Recent Infectious Disease Expo: No Recent Hopitalizations: No Immunizations Up To Date Tetanus Booster (TDap): Unknown PED Vaccines UTD: No Date of Pneumonia Vaccine: Mar 11, 2011 Date of Influenza Vaccine: May 04, 2014 Seasonal Allergies Seasonal Allergies: Yes Surgeries History of Surgeries: Yes Surgeries: Abdominal, Appendectomy, Cardiac, Section, Gallbladder, 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, Oophorectomy, Orthopedic Respiratory History of Respiratory Disorde: No Currently Using CPAP: No Currently Using BIPAP: No Cardiovascular History of Cardiac Disorders: Yes (RBBB) Cardiac Disorders: Atrial Fibrillation, Hypertension Neurological History of Neurological Disord: Yes Neurological Disorders: Headaches /Migraines, Neuropathy 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 System : No Hx 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 Disorders: No Sexually Transmitted Disease: No HIV/AIDS: No Female 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 Disorders: Denies 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: 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 Genitourinary History of Genitourinary Disor: Yes Genitourinary Disorders: Kidney Infection, Bladder Infection, Renal Failure Gastrointestinal History of Gastrointestinal Di: Yes Gastrointestinal Disorders: Gastroesophageal Reflux, Gastrointestinal Bleed, Chronic Constipation, Hiatal Hernia, Gall Bladder Disease Musculoskeletal History of Musculoskeletal Dis: Yes (KNEES, BACK, HIPS) Musculoskeletal Disorders: Arthritis, Chronic Back Pain Endocrine History of Endocrine Disorders: Yes (Pre Diabetic) Endocrine Disorders: Diabetes, Non-Insulin dep HEENT History of HEENT Disorders: No Loss of Vision: Denies Hearing Impairment: Denies Cancer History of Cancer: Yes ("SPINAL CORD CANCER" LATE , S/P SURGERY, RADIATION, CHEMO VIA SHUNT) Cancer: Bone Psychosocial History of Psychiatric Problem: Yes Behavioral Health Disorders: Anxiety Integumentary History of Skin or Integumenta: No Blood Transfusions History of Blood Disorders: No Adverse Reaction to a Blood Tr: No Family Medical History Significant Family History: Heart Disease Family Medial History: Arthritis 19 MOTHER, Onset:30's - 40 (RA) Cardiovascular disease 19 MOTHER, Onset:40's - 50 Completed stroke 19 MOTHER, Onset:60 years & older Headache disorder 19 FATHER, Onset:Unknown (severe sinus headaches) Hypertension 19 MOTHER, Onset:50's - 60 Myocardial infarction 19 MOTHER, Onset:60 years & older Psychosocial problem 19 FATHER, Onset:Unknown No Family History of: AIDS Abdominal aortic aneurysm Breaks's disease Alcoholism Alzheimer's disease Aphasia Asthma Cancer of mouth Cataracts Colon cancer Congenital disease Congenital heart disease Coronary thrombosis Cystic fibrosis Deafness or hearing loss Dementia Diabetes mellitus Drug abuse Dysphasia Fibrocystic disease of breast Gastroenteritis Glaucoma Hypercholesterolemia Infertility Kidney disease Neoplasm Not obtainable due to adoption Osteoporosis Parkinson's disease Prostate cancer Respiratory disorder Seizure disorder Severe allergy Thyroid disease Tuberculosis Visual disorder Physical Exam Vital Signs Vital Sign - Last 12Hours 03/12/17 11:54 Temp 97.6 Pulse 62 Resp 20 B/P (MAP) 127/53 Pulse Ox 100 O2 Delivery Room Air Capillary Refill : Less Than 3 Seconds General Appearance: WD/WN, no apparent distress HEENT: PERRL/EOMI, normal ENT inspection, TMs normal, pharynx normal Neck: non-tender, full range of motion, supple, normal inspection Respiratory: chest non-tender, lungs clear, normal breath sounds, no respiratory distress, no accessory muscle use Cardiovascular: normal peripheral pulses, regular rate, rhythm, no edema, systolic murmur (3 out of 6), other (left carotid bruit) Peripheral Pulses: 2+ Radial Pulses (R), 2+ Radial Pulses (L) Gastrointestinal: normal bowel sounds, non tender, soft Extremities: non-tender, normal inspection, no calf tenderness, normal capillary refill Neurologic/Psychiatric: alert, normal mood/affect, oriented x 3 Stroke Onset of Symptoms Date of Onset of Symptoms: Mar 12, 2017 Time of Symptom Onset: 09:00 Onset of Symptoms: Yes Symptoms onset unknown: No NIH Stroke Scale Assessment Select: Initial Level of Consciousness: 0=Alert (0), Level of Consciousness- Questions: 0=Answers both month/age (0), LOC Commands: 0=Performs both tasks (0) , Gaze: Normal (0), Visual Mcelroy: 1=Partial hemianopia (1), Facial Movement ( Facial Paresis): 0=Normal symmetrical mnt (0), Motor Function-Arms Right: 0=No drift (0), Motor Function-Arms Left: 0=No drift (0), Motor Function-Legs Right: 0=No drift (0), Motor Function-Legs Left: 2=Some effort/gravity Chronic from Hip and knee pain. (2), Limb Ataxia: 0=Absent (0), Sensory: 0=Normal:no loss (0) , Best Language: 0=No aphasia (0), Dysarthria: 0=Normal (0), Extinction & Inattention: 0=No abnormality (0), Total: 3 Stroke Thrombolytic Exclusion Age 18 or Over: Yes Acute intenal hemorrhage: No History of CVA: No Uncontrolled Coagulation Defec: No Intracranial Hemorrhage: No Severe Hypertension: No GI or Bleed: No Subarachnoid Hemorrhage: No Intracranial Neoplasm/Aneurysm: No Oral Anticoagulants: Yes Surgery or Trauma: No Puncture of Non-Compressible V: No Recent CPR: No Diabetic Hemorrhagic Retinopat: No Organ Biopsy: No Recent Obstetric Delivery: No Glucose: No Significant Hepatic Dysfunctio: No NIH Stoke Scale >22: No Bacterial Endocarditis: No Pericarditis: No Improving Symptoms: Yes Platelets: No TPA Contraindication: Yes IV - TPa Received IV - TPa Procedure Performed?: No Progress/Results/Core Measures Results/Orders Lab Results Laboratory Tests Test 03/12/17 12:10 03/12/17 13:25 Range/Units White Blood Count 5.9 4.3-11.0 10^3/uL Red Blood Count 3.07 L 4.35-5.85 10^6/uL Hemoglobin 7.5 L 11.5-16.0 G/DL Hematocrit 25 L 35-52 % Mean Corpuscular Volume 83 80-99 FL Mean Corpuscular Hemoglobin 25 25-34 PG Mean Corpuscular Hemoglobin Concent 30 L 32-36 G/DL Red Cell Distribution Width 16.8 H 10.0-14.5 % Platelet Count 326 130-400 10^3/uL Mean Platelet Volume 9.6 7.4-10.4 FL Neutrophils (%) (Auto) 49 42-75 % Lymphocytes (%) (Auto) 38 12-44 % Monocytes (%) (Auto) 10 0-12 % Eosinophils (%) (Auto) 2 0-10 % Basophils (%) (Auto) 1 0-10 % Neutrophils # (Auto) 2.9 1.8-7.8 X 10^3 Lymphocytes # (Auto) 2.3 1.0-4.0 X 10^3 Monocytes # (Auto) 0.6 0.0-1.0 X 10^3 Eosinophils # (Auto) 0.1 0.0-0.3 10^3/uL Basophils # (Auto) 0.1 0.0-0.1 10^3/uL Absolute Reticulocyte Count 43 24-90 10e9/L Percent Reticulocyte Count 1.40 0.50-2.40 % Prothrombin Time 22.3 H 12.2-14.7 SEC INR Comment 2.0 H 0.8-1.4 Activated Partial Thromboplast Time 34 24-35 SEC Sodium Level 138 135-145 MMOL/L Potassium Level 4.6 3.6-5.0 MMOL/L Chloride Level 106 98-107 MMOL/L Carbon Dioxide Level 24 21-32 MMOL/L Anion Gap 8 5-14 MMOL/L Blood Urea Nitrogen 29 H 7-18 MG/DL Creatinine 1.15 0.60-1.30 MG/DL Estimat Glomerular Filtration Rate 47 BUN/Creatinine Ratio 25 Glucose Level 95 70-105 MG/DL Calcium Level 9.2 8.5-10.1 MG/DL Magnesium Level 1.9 1.8-2.4 MG/DL Total Bilirubin 0.4 0.1-1.0 MG/DL Aspartate Amino Transf (AST/SGOT) 13 5-34 U/L Alanine Aminotransferase (ALT/SGPT) 12 0-55 U/L Alkaline Phosphatase 88 40-136 U/L Troponin I < 0.30 <0.30 NG/ML C-Reactive Protein High Sensitivity 0.24 0.00-0.50 MG/DL Total Protein 6.9 6.4-8.2 GM/DL Albumin 3.7 3.2-4.5 GM/DL Urine Color YELLOW Urine Clarity CLEAR Urine pH 6 5-9 Urine Specific [place] 1.015 L 1.016-1.022 Urine Protein NEGATIVE NEGATIVE Urine Glucose (UA) NEGATIVE NEGATIVE Urine Ketones NEGATIVE NEGATIVE Urine Nitrite NEGATIVE NEGATIVE Urine Bilirubin NEGATIVE NEGATIVE Urine Urobilinogen NORMAL NORMAL MG/DL Urine Leukocyte Esterase 3+ H NEGATIVE Urine RBC (Auto) NEGATIVE NEGATIVE Urine RBC NONE /HPF Urine WBC 5-10 H /HPF Urine Squamous Epithelial Cells 5-10 /HPF Urine Crystals NONE /LPF Urine Bacteria NEGATIVE /HPF Urine Casts NONE /LPF Urine Mucus NEGATIVE /LPF Urine Culture Indicated YES Urine Opiates Screen NEGATIVE NEGATIVE Urine Oxycodone Screen NEGATIVE NEGATIVE Urine Methadone Screen NEGATIVE NEGATIVE Urine Propoxyphene Screen NEGATIVE NEGATIVE Urine Barbiturates Screen NEGATIVE NEGATIVE Ur Tricyclic Antidepressants Screen NEGATIVE NEGATIVE Urine Phencyclidine Screen NEGATIVE NEGATIVE Urine Amphetamines Screen NEGATIVE NEGATIVE Urine Methamphetamines Screen NEGATIVE NEGATIVE Urine Benzodiazepines Screen NEGATIVE NEGATIVE Urine Cocaine Screen NEGATIVE NEGATIVE Urine Cannabinoids Screen NEGATIVE NEGATIVE My Orders Orders - MARLY,HEATHER J Cbc With Automated Diff (03/12/17 12:12) Comprehensive Metabolic Panel (03/12/17 12:12) Hs C Reactive Protein (03/12/17 12:12) Drug Screen Stat (Urine) (03/12/17 12:12) Magnesium (03/12/17 12:12) Protime With Inr (03/12/17 12:12) Partial Thromboplastin Time (03/12/17 12:12) Troponin I (03/12/17 12:12) Ua Culture If Indicated (03/12/17 12:12) Ct Head Wo (03/12/17 12:12) Chest Pa/Lat (2 View) (03/12/17 12:12) Saline Lock/Iv-Start (03/12/17 12:12) Saline Lock/Iv-Start (03/12/17 12:12) Ns Iv 1000 Ml (Sodium Chloride 0.9%) (03/12/17 12:15) Reticulocyte Count (03/12/17 13:01) Type And Screen (03/12/17 13:01) Iron Tibc %Sat & Ferritin (03/12/17 13:01) Ekg Tracing (03/12/17 13:04) Occult Blood Stool (03/12/17 13:33) Urine Culture (03/12/17 13:25) General/Regular (03/12/17 Lunch) Pantoprazole Injection (Protonix Injecti (03/12/17 15:15) Vital Signs: Special (03/12/17 15:08) Consent-Obtain Consent For (03/12/17 15:08) Monitor S/S Transfusion Reacti (03/12/17 15:08) Ns Iv 500 Ml (Sodium Chloride 0.9%) (03/12/17 15:08) Red Cells Leukocytes Reduced (03/12/17 15:08) Medications Given in ED Current Medications Medications Dose Ordered Sig/Larry Route Start Time Stop Time Status Last Admin Dose Admin Pantoprazole 40 mg ONCE ONCE IV 03/12/17 15:15 03/12/17 15:16 DC 03/12/17 16:33 40 MG Vital Signs/I&O Vital Sign - Last 12Hours 03/12/17 03/12/17 03/12/17 11:54 16:41 16:57 Temp 97.6 99.2 97.5 Pulse 62 56 60 Resp 20 20 20 B/P (MAP) 127/53 130/60 122/48 Pulse Ox 100 100 100 O2 Delivery Room Air Room Air Room Air Blood Pressure Mean: 77 Progress Note : Time: 16:07 Progress Note We'll get her transferred to [place] where her GI doctor can help her out with her probable upper GI bleed. We will transfuse her 1 unit of blood. We will treat her with Macrobid for presumptive UTI even though UA may represent contamination. She's been accepted and has a bed at [place] but there is no available transport this moment. ECG Initial ECG Impression Date: Mar 12, 2017 Initial ECG Impression Time: 12:29 Initial ECG Rate: 55 Initial ECG Rhythm: Normal Sinus Initial ECG Intervals: Normal Initial ECG Impression: Nonspecific Changes (right bundle-branch block), 1st Degree AV Block Initial ECG Comparisson: No Previous ECG Available Comment No atrial fibrillation at this time and no ST wave elevation or depression. Diagnostic Imaging Diagonstic Imaging: Xray Plain Films/CT/US/NM/MRI: chest (2v) Comments Negative two-view chest for acute cardiopulmonary processes. NAME: PRANAV SMITH MED REC#: [id number] PHYSICIAN: HEATHER LUKE MD CC: MITRA PANDEY MD; HEATHER LUKE Page 1 of 1 RADIOLOGY REPORT VIA [facility]. [place], [place] CC: MITRA PANDEY MD; HEATHER LUKE Page 1 of 1 RADIOLOGY REPORT NAME: SARAH,PRANAV Binh MED REC#: [id number] PT STATUS: REG ER : 1950 PHYSICIAN: HEATHER LUKE MD ADMIT DATE: 03/12/17/ER Signed Date of Exam: 03/12/17 CHEST PA/LAT (2 VIEW) PA and lateral views of the chest. INDICATION: Weakness. FINDINGS: The lungs are clear. The heart size is normal. No effusion or pneumothorax. The mediastinum and pedro appear unremarkable. IMPRESSION: Unremarkable exam. Dictated by: Dictated on workstation # [id number] Dict: 03/12/17 1306 Trans: 03/12/17 1321 Interpreted by: MITRA PANDEY MD Electronically signed by: MITRA PANDEY MD 03/12/17 1321 Reviewed: Reviewed by Mi Plain Films/CT/US/NM/MRI: head Comments Negative CT for acute intracranial bleeds, mass effect, tumor. NAME: PRANAV SMITH MED REC#: [id number] PT STATUS: REG ER : 1950 PHYSICIAN: HEATHER LUKE MD ADMIT DATE: 03/12/17/ER Draft Date of Exam:03/12/17 CT HEAD WO CLINICAL INDICATION: Patient with fainting-like symptoms. EXAM: An axial CT scan of the brain was performed without IV contrast. COMPARISON: Head CT without contrast dated 11/09/2012. FINDINGS: There is no evidence of acute cerebral infarct, intracranial hemorrhage, or gross mass effect. There is no significant change to the patchy areas of low-attenuation white matter changes throughout both cerebral hemispheres (right side more than the left). Stable small chronic cerebral infarct involving the right frontal lobe with encephalomalacia. Stable small chronic lacunar infarct versus prominent perivascular space involving the right basal ganglia. There is normal foley/white matter distinction. The brain parenchymal volume appears appropriate for the patient's age. There is no significant midline shift or herniation. There is no evidence of hydrocephalus. The basal cisterns are unremarkable. The skull, extracranial soft tissue, and orbits are unremarkable. The paranasal sinuses are unremarkable. The temporal bone structures show no significant abnormality. IMPRESSION: 1. Stable CT scan of the brain with no evidence of acute intracranial process. 2. 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 3. Chronic small vessel ischemic disease and leukoaraiosis. Dictated on workstation # [id number] Dict: 03/12/17 1251 Trans: 03/12/17 1256 [id number] Interpreted by: JOHN PERALTA MD Electronically signed by: Reviewed: Reviewed by Me Consults Consults : Consulting Physician: DAMON MCFARLAND MD Consults Notes 1220: Discussed the case she says that there is mild bilateral disease on ultrasound about a month ago. He thinks that given her history of paroxysmal atrial fibrillation is more likely to be embolic then atherosclerotic disease. Departure Communication (PCP) Spoke with Dr. Sahu and she is okay with getting the patient if GI will not take her to [place] and expedite the fact that she needs a ERCP as well. She does have a history of GI bleed about a year ago that was in her duodenal area from gastric ulcers/duodenal ulcers. Patient is on Protonix. Impression Impression: Primary Impression: Anemia Qualified Codes: D50.0 - Iron deficiency anemia secondary to blood loss ( chronic) Additional Impressions: GI bleed Qualified Codes: K92.2 - Gastrointestinal hemorrhage, unspecified UTI (urinary tract infection) Qualified Codes: N30.00 - Acute cystitis without hematuria Vision changes Disposition: ADMITTED INPATIENT Condition: Stable Transfer Time Spoke to Accepting Phy: 14:[address] Wandy RODRIGUEZ, [place], [place] accepting the patient. If a bed at 1600. waiting on transport availability. She will consult GI. Transfer Time: 17:34 Transfer Facility: [place], [place]. Method of Transfer: EMS Departure-Patient Inst. Referrals: ANTHONY SAHU DO (PCP/Family) Primary Care Physician Copy Copies To 1: ANTHONY SAHU TITUS J Mar 12, 2017 12:11
[2017-03-12] MEDS ORDERED: NS IV 1000 ML 1,000 ML IV ONE (12:15)
[2017-03-12 12:24] LABS: BASOPHILS # (AUTO) 0.1 10^3/uL (0.0-0.1); BASOPHILS % (AUTO) 1 % (0-10); EOSINOPHILS # (AUTO) 0.1 10^3/uL (0.0-0.3); EOSINOPHILS % (AUTO) 2 % (0-10); LYMPHOCYTES # (AUTO) 2.3 X 10^3 (1.0-4.0); LYMPHOCYTES % (AUTO) 38 % (12-44); MEAN CORPUSCULAR HEMOGLOBIN 25 PG (25-34); MEAN CORPUSCULAR HGB CONC 30 G/DL (32-36); MEAN CORPUSCULAR VOLUME 83 FL (80-99); MEAN PLATELET VOLUME 9.6 FL (7.4-10.4); MONOCYTES # (AUTO) 0.6 X 10^3 (0.0-1.0); MONOCYTES % (AUTO) 10 % (0-12); NEUTROPHILS # (AUTO) 2.9 X 10^3 (1.8-7.8); NEUTROPHILS % (AUTO) 49 % (42-75); PLATELET COUNT 326 10^3/uL (130-400); RED BLOOD COUNT 3.03 10^6/uL (4.35-5.85); RED CELL DISTRIBUTION WIDTH 16.8 % (10.0-14.5); WHITE BLOOD COUNT 5.9 10^3/uL (4.3-11.0)
[2017-03-12 12:34] LABS: PROTHROMBIN TIME PATIENT 22.3 SEC (12.2-14.7)
[2017-03-12 12:42] LABS: ALANINE AMINOTRANSFERASE 12 U/L (0-55); ALBUMIN 3.7 GM/DL (3.2-4.5); ANION GAP 8 MMOL/L (5-14); ASPARTATE AMINO TRANSFERASE 13 U/L (5-34); BILIRUBIN,TOTAL 0.4 MG/DL (0.1-1.0); BLOOD UREA NITROGEN 29 MG/DL (7-18); BUN/CREATININE RATIO 25; CALCIUM 9.2 MG/DL (8.5-10.1); CARBON DIOXIDE 24 MMOL/L (21-32); CHLORIDE 106 MMOL/L (98-107); CREATININE SERUM 1.15 MG/DL (0.60-1.30); GFR ESTIMATED 47; GLUCOSE 95 MG/DL (70-105); MAGNESIUM 1.9 MG/DL (1.8-2.4); POTASSIUM 4.6 MMOL/L (3.6-5.0); SODIUM 138 MMOL/L (135-145); TOTAL PROTEIN 6.9 GM/DL (6.4-8.2); hs C REACTIVE PROTEIN 0.24 MG/DL (0.00-0.50)
[2017-03-12 12:48] LABS: TROPONIN I < 0.30 NG/ML (<0.30)
--- NOTE | 2017-03-12 12:56 | Diagnostic Imaging Report ---
CLINICAL INDICATION: Patient with fainting-like symptoms. EXAM: An axial CT scan of the brain was performed without IV contrast. COMPARISON: Head CT without contrast dated 11/09/2012. FINDINGS: There is no evidence of acute cerebral infarct, intracranial hemorrhage, or gross mass effect. There is no significant change to the patchy areas of low-attenuation white matter changes throughout both cerebral hemispheres (right side more than the left). Stable small chronic cerebral infarct involving the right frontal lobe with encephalomalacia. Stable small chronic lacunar infarct versus prominent perivascular space involving the right basal ganglia. There is normal foley/white matter distinction. The brain parenchymal volume appears appropriate for the patient's age. There is no significant midline shift or herniation. There is no evidence of hydrocephalus. The basal cisterns are unremarkable. The skull, extracranial soft tissue, and orbits are unremarkable. The paranasal sinuses are unremarkable. The temporal bone structures show no significant abnormality. IMPRESSION: 1. Stable CT scan of the brain with no evidence of acute intracranial process. 2. 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 3. Chronic small vessel ischemic disease and leukoaraiosis. Dictated by: Dictated on workstation # [id number]
[2017-03-12 13:09] LABS: RED BLOOD COUNT 3.07 10^6/uL (4.35-5.85); RETICULOCYTE % 1.4 % (0.50-2.40)
--- NOTE | 2017-03-12 13:09 | Diagnostic Imaging Report ---
PA and lateral views of the chest. INDICATION: Weakness. FINDINGS: The lungs are clear. The heart size is normal. No effusion or pneumothorax. The mediastinum and pedro appear unremarkable. IMPRESSION: Unremarkable exam. Dictated by: Dictated on workstation # [id number]
[2017-03-12 13:36] LABS: BILIRUBIN,URINE NEGATIVE (NEGATIVE); KETONES,URINE NEGATIVE (NEGATIVE); LEUKOCYTE ESTERASE ,URINE 3+ (NEGATIVE); NITRITE,URINE NEGATIVE (NEGATIVE); PH,URINE 6 (5-9); PROTEIN,URINE NEGATIVE (NEGATIVE); UROBILINOGEN,URINE NORMAL (NORMAL)
[2017-03-12] MEDS ORDERED: NS IV 500 ML 500 ML IV SCH (15:08)
[2017-03-12] MEDS ORDERED: PANTOPRAZOLE 40 MG/10 ML (PROTONIX) VIAL IV ONE (15:15)
[2017-03-12 16:41] VITALS: BP 130/60
[2017-03-12 16:57] VITALS: BP 122/48
[2017-03-12 17:40] VITALS: BP 128/56
[2017-03-12 17:44] VITALS: BP 128/56
== END 2017-03-12 17:44 | disposition other institution (70) ==
LOC: EDUNIT# 11:31 → ER 11:34
DX: D64.9 Anemia, unspecified (principal); K92.2 Gastrointestinal hemorrhage, unspecified; N39.0 Urinary tract infection, site not specified; H53.8 Other visual disturbances; F41.9 Anxiety disorder, unspecified; K21.9 Gastro-esophageal reflux disease without esophagitis; E11.40 Type 2 diabetes mellitus with diabetic neuropathy, unspecified; I48.91 Unspecified atrial fibrillation; I10 Essential (primary) hypertension; Z85.830 Personal history of malignant neoplasm of bone; Z90.710 Acquired absence of both cervix and uterus; Z90.49 Acquired absence of other specified parts of digestive tract; Z87.59 Personal history of other complications of pregnancy, childbirth and the puerperium; Z79.01 Long term (current) use of anticoagulants; Z98.2 Presence of cerebrospinal fluid drainage device; Z92.21 Personal history of antineoplastic chemotherapy
CPT/HCPCS: 36415; 36430; 70450; 71020; 80053; 80306; 81000; 82728; 83540; 83735; 84484; 85025; 85045; 85610; 85730; 86141; 86850; 86900; 86901; 86920; 87088; 93005

== ENCOUNTER 2017-03-31 19:10 | Emergency (ER) | payer OTHER ==
[~2017-03-31] VITALS: Ht 167.6 cm; Wt 86.2 kg
--- OUTSIDE RECORDS SUMMARY | 2017-03-31 19:15 | XMS REPORT | Clinical Summary ---
Author Author [facility] Organization [facility] Address Unknown Phone Unavailable Care Team Providers Care Line Supply Name Role Phone PCP Unavailable Source Comments Some departments are not documenting in the electronic medical record. 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 LABORER Inhaled Oxygen - - Concentration Weight 93 kg (205 lb) 08/17/2015 2:06 PM [employer]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
[2017-03-31 19:36] LABS: BASOPHILS # (AUTO) 0.1 10^3/uL (0.0-0.1); BASOPHILS % (AUTO) 1 % (0-10); EOSINOPHILS # (AUTO) 0.1 10^3/uL (0.0-0.3); EOSINOPHILS % (AUTO) 2 % (0-10); LYMPHOCYTES # (AUTO) 2.6 X 10^3 (1.0-4.0); LYMPHOCYTES % (AUTO) 35 % (12-44); MEAN CORPUSCULAR HEMOGLOBIN 26 PG (25-34); MEAN CORPUSCULAR HGB CONC 31 G/DL (32-36); MEAN CORPUSCULAR VOLUME 85 FL (80-99); MEAN PLATELET VOLUME 9.8 FL (7.4-10.4); MONOCYTES # (AUTO) 0.8 X 10^3 (0.0-1.0); MONOCYTES % (AUTO) 11 % (0-12); NEUTROPHILS # (AUTO) 3.7 X 10^3 (1.8-7.8); NEUTROPHILS % (AUTO) 51 % (42-75); PLATELET COUNT 322 10^3/uL (130-400); RED CELL DISTRIBUTION WIDTH 18.7 % (10.0-14.5); WHITE BLOOD COUNT 7.3 10^3/uL (4.3-11.0)
[2017-03-31 19:47] LABS: INR 1.2 (0.8-1.4); PROTHROMBIN TIME PATIENT 15.5 SEC (12.2-14.7)
[2017-03-31] MEDS ORDERED: NS IV 1000 ML 1,000 ML IV ONE (19:58)
[2017-03-31 20:00] LABS: ALANINE AMINOTRANSFERASE 23 U/L (0-55); ALBUMIN 3.9 GM/DL (3.2-4.5); AMYLASE 54 U/L (25-125); ANION GAP 6 MMOL/L (5-14); ASPARTATE AMINO TRANSFERASE 22 U/L (5-34); BILIRUBIN,TOTAL 0.5 MG/DL (0.1-1.0); BLOOD UREA NITROGEN 22 MG/DL (7-18); BUN/CREATININE RATIO 21; CALCIUM 9.4 MG/DL (8.5-10.1); CARBON DIOXIDE 27 MMOL/L (21-32); CHLORIDE 106 MMOL/L (98-107); CREATININE SERUM 1.04 MG/DL (0.60-1.30); GFR ESTIMATED 53; GLUCOSE 91 MG/DL (70-105); LIPASE 27 U/L (8-78); SODIUM 139 MMOL/L (135-145); TOTAL PROTEIN 7.9 GM/DL (6.4-8.2)
--- NOTE | 2017-03-31 20:13 | ED General ---
General Chief Complaint: Dizziness/Syncope Stated Complaint: DIZZINESS Nursing Triage Note: PT CO OF DIZZINESS AND WEAKNESS STATES RECENTLY HAS HAD ANEMIA AND GI BLEED. STATES SHE FEELS ABOUT THE SAME, RECEIVED 2 UNTIS OF BLOOD. HAS STARTED TAKING XARALTO AGAIN FOR FOR 3 DAYS. Nursing Sepsis Screen: No Definite Risk Source of Information: Patient, Family (DAUGHTER) History of Present Illness Time Seen by Provider: 19:20 Initial Comments PT ARRIVES VIA POV FROM HOME C/O DIZZINESS AND GENERALIZED WEAKNESS PT IS ON XARELTO AND HAS HISTORY OF GI BLEEDS, AND WAS HERE ON 03/11/17 FOR RUQ PAIN, THEN RETURNED 03/12/17 AND HAD HGB 7.5 AND TRANSFERRED TO [place] AND RECEIVED BLOOD TRANSFUSIONS. STATES THEY "FOUND A SPOT ON MY PANCREAS" AND PT REPORTS THAT DR. BOYLE ( GI ) ATTEMPTED TO DO A BIOPSY, BUT WAS REPORTEDLY UNSUCCESSFUL. 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 PERDOMO ORDER WORKER: DR. CLAUDIO Allergies and Home Medications Allergies Coded Allergies: Beta-Blockers (Beta-Adrenergic Bloc (Unverified Allergy, Unknown, 11/20/12) atenolol (Verified Allergy, Unknown, 04/05/07) Home Medications Diltiazem HCl 180 Mg Cap.er.24h, 180 MG PO HS, (Reported) Nitrofurantoin Monohyd/M-Cryst 100 Mg Capsule, 1 TAB PO BID for 7 Days Prescribed by: QASIM CASTILLO on 12/26/15 1209 Pantoprazole Sodium 40 Mg , 40 MG PO DAILY, (Reported) Propafenone HCl 225 Mg Cap, 225 MG PO TID, (Reported) Rivaroxaban 20 Mg Tablet, 20 MG PO HS, (Reported) Sennosides/Docusate Sodium 1 Each Tablet, 1 EA PO BID, #30 Prescribed by: ANTHONY PERDOMO on 12/26/15 0950 Constitutional: see HPI, dizziness, malaise, weakness EENTM: no symptoms reported Respiratory: no symptoms reported Cardiovascular: no symptoms reported, No chest pain, No edema, No palpitations , No syncope, No vascular heart diseas Gastrointestinal: see HPI, abdominal pain, constipation, nausea, No vomiting Genitourinary: no symptoms reported Musculoskeletal: no symptoms reported Skin: no symptoms reported Psychiatric/Neurological: No Symptoms Reported Hematologic/Lymphatic: See HPI Immunological/Allergic: no symptoms reported Past Omgnype-Qfgqlc-Ubvhjz Hx Patient Social History Alcohol Use: Denies Use Recreational Drug Use: No Smoking Status: Never a Smoker 2nd Hand Smoke Exposure: No Recent Foreign Travel: No Contact w/Someone Who Travel: No Recent Infectious Disease Expo: No Recent Hopitalizations: No Physical Abuse: No Sexual Abuse: No Immunizations Up To Date Tetanus Booster (TDap): Unknown PED Vaccines UTD: No Date of Pneumonia Vaccine: Mar 11, 2011 Date of Influenza Vaccine: May 04, 2014 Seasonal Allergies Seasonal Allergies: Yes Surgeries History of Surgeries: Yes (SPINAL CORD SURGERY X 3 FOR REMOVAL OF EPENDYMOMA; CSF SHUNT FOR CHEMO--REMOVED; ENDOSCOPIES; ) Surgeries: Abdominal, Appendectomy, Cardiac, Section, Gallbladder, 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, Neurological, Oophorectomy Respiratory History of Respiratory Disorde: No Currently Using CPAP: No Currently Using BIPAP: No Cardiovascular History of Cardiac Disorders: Yes (RBBB) Cardiac Disorders: Atrial Fibrillation, Heart Murmur, Hypertension, Valvular Heart Disease Neurological History of Neurological Disord: Yes Neurological Disorders: Headaches /Migraines, Neuropathy 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 System Hx 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 Disorders: Yes (CERVICAL DYSPLASIA) Sexually Transmitted Disease: No HIV/AIDS: No Female 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 Disorders: Denies PARBOILER 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: 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 Genitourinary History of Genitourinary Disor: Yes Genitourinary Disorders: Kidney Infection, Bladder Infection, Renal Failure Gastrointestinal History of Gastrointestinal Di: Yes Gastrointestinal Disorders: Gastroesophageal Reflux, Gastrointestinal Bleed, Chronic Constipation, Hiatal Hernia, Gall Bladder Disease Musculoskeletal History of Musculoskeletal Dis: Yes (KNEES, BACK, HIPS) Musculoskeletal Disorders: Arthritis, Chronic Back Pain Endocrine History of Endocrine Disorders: Yes (Pre Diabetic) Endocrine Disorders: Diabetes, Non-Insulin dep HEENT History of HEENT Disorders: No Loss of Vision: Denies Hearing Impairment: Denies Cancer History of Cancer: Yes ("SPINAL CORD CANCER"--EPENDYMOMA- LATE , S/P SURGERY X 3 , RADIATION, CHEMO VIA CSF SHUNT) Cancer: Bone Did You Recieve Any Treatments: Yes Type of Tx Receive: Chemotherapy, Radiation, Surgical Intervention Psychosocial History of Psychiatric Problem: Yes Behavioral Health Disorders: Anxiety Suicide Risk Score: 0 Integumentary History of Skin or Integumenta: No Blood Transfusions History of Blood Disorders: No Adverse Reaction to a Blood Tr: No Family Medical History Significant Family History: Heart Disease Family Medial History: Arthritis 19 MOTHER, Onset:30's - 40 (RA) Cardiovascular disease 19 MOTHER, Onset:40's - 50 Completed stroke 19 MOTHER, Onset:60 years & older Headache disorder 19 FATHER, Onset:Unknown (severe sinus headaches) Hypertension 19 MOTHER, Onset:50's - 60 Myocardial infarction 19 MOTHER, Onset:60 years & older Psychosocial problem 19 FATHER, Onset:Unknown No Family History of: AIDS Abdominal aortic aneurysm Flathead's disease Alcoholism Alzheimer's disease Aphasia Asthma Cancer of mouth Cataracts Colon cancer Congenital disease Congenital heart disease Coronary thrombosis Cystic fibrosis Deafness or hearing loss Dementia Diabetes mellitus Drug abuse Dysphasia Fibrocystic disease of breast Gastroenteritis Glaucoma Hypercholesterolemia Infertility Kidney disease Neoplasm Not obtainable due to adoption Osteoporosis Parkinson's disease Prostate cancer Respiratory disorder Seizure disorder Severe allergy Thyroid disease Tuberculosis Visual disorder Physical Exam Vital Signs Vital Sign - Last 12Hours 03/31/17 19:20 Temp 97.9 Pulse 71 Resp 18 B/P (MAP) 195/85 Pulse Ox 100 Capillary Refill : Less Than 3 Seconds General Appearance: No Apparent Distress, WD/WN, Obese HEENT: PERRL/EOMI, No Pale Conjunctivae (L), No Pale Conjunctivae (R) Neck: Full Range of Motion, Normal Inspection, Non Tender, Supple, Other ( BILATERAL CAROTID BRUITS VS RADIATION OF MURMUR) Respiratory: Normal Breath Sounds, No Accessory Muscle Use, No Respiratory Distress Cardiovascular: Regular Rate, Rhythm, No Edema, No JVD, Normal Peripheral Pulses, Systolic Murmur (3/6) Gastrointestinal: Normal Bowel Sounds, No Organomegaly, No Pulsatile Mass, Soft , Tenderness (RLQ MODERATE TENDERNESS) Back: Normal Inspection, No CVA Tenderness, No Vertebral Tenderness Extremity: Normal Capillary Refill, Normal Inspection, Normal Range of Motion, Non Tender, No Calf Tenderness, No Pedal Edema Neurologic/Psychiatric: Alert, Oriented x3, No Motor/Sensory Deficits, Normal Mood/Affect, 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 Norm as Tested Skin: Normal Color, Warm/Dry Progress/Results/Core Measures Results/Orders Lab Results Laboratory Tests Test 03/31/17 19:30 Range/Units White Blood Count 7.3 4.3-11.0 10^3/uL Red Blood Count 4.00 L 4.35-5.85 10^6/uL Hemoglobin 10.5 L 11.5-16.0 G/DL Hematocrit 34 L 35-52 % Mean Corpuscular Volume 85 80-99 FL Mean Corpuscular Hemoglobin 26 25-34 PG Mean Corpuscular Hemoglobin Concent 31 L 32-36 G/DL Red Cell Distribution Width 18.7 H 10.0-14.5 % Platelet Count 322 130-400 10^3/uL Mean Platelet Volume 9.8 7.4-10.4 FL Neutrophils (%) (Auto) 51 42-75 % Lymphocytes (%) (Auto) 35 12-44 % Monocytes (%) (Auto) 11 0-12 % Eosinophils (%) (Auto) 2 0-10 % Basophils (%) (Auto) 1 0-10 % Neutrophils # (Auto) 3.7 1.8-7.8 X 10^3 Lymphocytes # (Auto) 2.6 1.0-4.0 X 10^3 Monocytes # (Auto) 0.8 0.0-1.0 X 10^3 Eosinophils # (Auto) 0.1 0.0-0.3 10^3/uL Basophils # (Auto) 0.1 0.0-0.1 10^3/uL Prothrombin Time 15.5 H 12.2-14.7 SEC INR Comment 1.2 0.8-1.4 Activated Partial Thromboplast Time 32 24-35 SEC Sodium Level 139 135-145 MMOL/L Potassium Level 5.0 3.6-5.0 MMOL/L Chloride Level 106 98-107 MMOL/L Carbon Dioxide Level 27 21-32 MMOL/L Anion Gap 6 5-14 MMOL/L Blood Urea Nitrogen 22 H 7-18 MG/DL Creatinine 1.04 0.60-1.30 MG/DL Estimat Glomerular Filtration Rate 53 BUN/Creatinine Ratio 21 Glucose Level 91 70-105 MG/DL Calcium Level 9.4 8.5-10.1 MG/DL Magnesium Level 2.0 1.8-2.4 MG/DL Total Bilirubin 0.5 0.1-1.0 MG/DL Aspartate Amino Transf (AST/SGOT) 22 5-34 U/L Alanine Aminotransferase (ALT/SGPT) 23 0-55 U/L Alkaline Phosphatase 99 40-136 U/L Troponin I < 0.30 <0.30 NG/ML Total Protein 7.9 6.4-8.2 GM/DL Albumin 3.9 3.2-4.5 GM/DL Amylase Level 54 25-125 U/L Lipase 27 8-78 U/L TSH [place] Testing 3.10 0.35-4.94 UIU/ML My Orders Orders - MARIE HAN DO Saline Lock/Iv-Start (03/31/17 19:26) Orthostatic Vital Signs (03/31/17 19:26) Ekg Tracing (03/31/17:26) Monitor-Rhythm Ecg Trace Only (03/31/17:26) Amylase (03/31/17 19:26) Cbc With Automated Diff (03/31/17:26) Comprehensive Metabolic Panel (03/31/17:26) Lipase (03/31/17:26) Magnesium (03/31/17:26) Protime With Inr (03/31/17:26) Partial Thromboplastin Time (03/31/17:26) Thyroid Analyzer (03/31/17 19:26) Troponin I (03/31/17:26) Ua Culture If Indicated (03/31/17:26) Saline Lock/Iv-Start (03/31/17 19:58) Ns Iv 1000 Ml (Sodium Chloride 0.9%) (03/31/17 19:58) Ct Abdomen/Pelvis W (03/31/17 20:35) Saline Lock/Iv-Start (03/31/17 20:35) Lactated Ringers (Lr 1000 Ml Iv Solution (03/31/17 20:35) Iohexol Injection (Omnipaque 350 Mg/Ml 1 (03/31/17 21:00) Ns (Ivpb) (Sodium Chloride 0.9% Ivpb Bag (03/31/17 21:00) Medications Given in ED Current Medications Medications Dose Ordered Sig/Larry Route Start Time Stop Time Status Last Admin Dose Admin Iohexol 100 ml ONCE ONCE IV 03/31/17 21:00 03/31/17 21:55 DC 03/31/17 21:08 100 ML Lactated Ringer's 1,000 ml @ 0 mls/hr Q0M ONCE IV 03/31/17 20:35 03/31/17 20:36 DC 03/31/17 20:42 1,000 MLS/HR Sodium Chloride 100 ml ONCE ONCE IV 03/31/17 21:00 03/31/17 21:55 DC 03/31/17 21:08 80 ML Sodium Chloride 1,000 ml @ 0 mls/hr Q0M ONCE IV 03/31/17 19:58 03/31/17 19:59 DC 03/31/17 20:06 100 MLS/HR Vital Signs/I&O Vital Sign - Last 12Hours 03/31/17 03/31/17 03/31/17 03/31/17 19:20 19:53 19:53 19:54 Temp 97.9 Pulse 71 127 103 122 Resp 18 B/P (MAP) 195/85 Pulse Ox 100 03/31/17 22:03 Pulse 86 Resp 16 Pulse Ox 99 Blood Pressure Mean: 121 Departure Impression Impression: Primary Impression: Dizziness Additional Impressions: MILD VOLUME DEPLETION Abdominal pain Chronic constipation Anemia RECENT TRANSFUSION FOR GI BLEED Disposition: 01 HOME, SELF-CARE Condition: Improved Departure-Patient Inst. Referrals: ANTHONY PERDOMO DO (PCP/Family) Primary Care Physician Patient Instructions: Anemia Caused by Low Iron, Adult (DC), Constipation, Adult (DC), Dehydration, Adult (DC), Vertigo (a Type of Dizziness) (DC) Add. Discharge Instructions: TAKE MIRALAX DAILY--INITIALLY TAKE EVERY 4-6 HOURS UNTIL YOUR BOWELS HAVE BEEN CLEANED OUT, THEN DECREASE TO ONCE A DAY TAKE YOUR OTHER MEDICATIONS PRESCRIBED INCREASE YOUR FLUID INTAKE FOLLOW UP WITH DR. CLAUDIO THIS WEEK SCHEDULED FOLLOW UP WITH DR. PERDOMO THIS WEEK FOR FURTHER CARE All discharge instructions reviewed with patient and/or family. Voiced understanding. MARIE HAN DO Mar 31, 2017 20:13
[2017-03-31 20:30] LABS: TROPONIN I < 0.30 NG/ML (<0.30)
[2017-03-31] MEDS ORDERED: LACTATED RINGERS 1,000 ML IV ONE (20:35)
[2017-03-31] MEDS ORDERED: NS 100 ML (IVPB) BAG IV ONE (21:00)
[2017-03-31] MEDS ORDERED: IOHEXOL 350 MG/ML 100 ML (OMNIPAQUE 350) VIAL IV ONE (21:00)
--- NOTE | 2017-03-31 21:27 | Diagnostic Imaging Report ---
PROCEDURE: CT abdomen and pelvis with contrast. TECHNIQUE: Multiple contiguous axial images were obtained through the abdomen and pelvis after administration of intravenous contrast. INDICATION: Right-sided abdominal pain. CORRELATION STUDY: 12/07/2016 FINDINGS: Lung bases clear. Mild diffuse low-attenuation liver suggestive of some degree of hepatic steatosis. No focal lesion. Gallbladder absent with clips in the fossa. Spleen, adrenal glands unremarkable. Approximately 16 x 12 mm low-density foci in the uncinate process of the pancreas is again demonstrated and overall appears to be generally stable. Remainder of the pancreas unchanged and unremarkable. Kidneys normal appearance. No hydronephrosis or obstruction. There is moderate atheromatous changes and calcification of the wall of the abdominal aorta, nonaneurysmal. Gastrointestinal tract demonstrates moderate severity fecal retention. Moderate amount of retained gastric contents. Small bowel not abnormally dilated to suggest obstruction. Urinary bladder is mildly distended. Uterus not visualized. Osseous structures with multiple degenerative changes and bony demineralization. Prior surgical changes of decompressive laminectomies somewhat expanded appearance about the spinal canal. IMPRESSION: 1. Moderate severity fecal retention. No findings to suggest significant obstruction. 2. Cystic lesion at the uncinate process of the pancreas overall appears generally stable from most recent imaging. Dictated by: Dictated on workstation # [id number]
[2017-03-31 22:03] VITALS: BP 188/94
== END 2017-03-31 22:03 | disposition home or self-care (01) ==
LOC: EDUNIT# 19:10 → ER 19:11
DX: K59.00 Constipation, unspecified (principal); D64.9 Anemia, unspecified; E86.9 Volume depletion, unspecified; R42 Dizziness and giddiness; I48.91 Unspecified atrial fibrillation; I10 Essential (primary) hypertension; G43.909 Migraine, unspecified, not intractable, without status migrainosus; E11.40 Type 2 diabetes mellitus with diabetic neuropathy, unspecified; F41.9 Anxiety disorder, unspecified; K21.9 Gastro-esophageal reflux disease without esophagitis; Z87.19 Personal history of other diseases of the digestive system; Z79.01 Long term (current) use of anticoagulants; Z90.49 Acquired absence of other specified parts of digestive tract; Z82.49 Family history of ischemic heart disease and other diseases of the circulatory system; Z86.018 Personal history of other benign neoplasm; Z90.710 Acquired absence of both cervix and uterus
CPT/HCPCS: 36415; 74177; 80053; 82150; 83690; 83735; 84443; 84484; 85025; 85610; 85730; 93005; 93041; 96360; 96361

== ENCOUNTER 2017-07-02 15:10 | Emergency (ER) | payer MEDICARE, OTHER ==
[~2017-07-02] VITALS: Ht 167.6 cm; Wt 86.2 kg
[~2017-07-02 15:10] MED LIST changes: +ACHD5005 PO; -HYDR-3812 PO
--- OUTSIDE RECORDS SUMMARY | 2017-07-02 15:16 | XMS REPORT | Encounter Summary ---
Author Author [facility] Organization [facility] Address Unknown Phone Unavailable Care Team Providers Care Logging Worker Name Role Phone PCP Unavailable Reason for Referral * Radiology Services Status Reason Specialty Diagnoses / Referred By Referred To Procedures Contact Contact New Request Radiology Diagnoses Nomi Pancreatic cyst MD [facility] [address] [facility] [place] [address] Reason for Visit * Reason Comments Post Operative Visit Encounter Details Date Type Department Care Team Description 04/12/2017 Office Visit [facility] for [facility] Stevens MD Pancreatic cyst ( Primary Transplantation-Hepatobil [address] Dx) iary Pancreas [address] [place] [address] [place] FOR [phone] [place] [address] S [phone] Gerry gallardo MD [address] [place] [address] [phone] Social History Tobacco Use Types Packs/Day Years Used Date Never Smoker Tobacco Cessation: Counseling Given: No Alcohol Use Drinks/Week oz/Week Comments No Sex Assigned at Date Recorded Not on file as of this encounter Last Filed Vital Signs Vital Sign Reading Time Taken Blood Pressure 155/53 04/12/2017 10:08 AM CDT Pulse 64 04/12/2017 10:08 AM CDT Temperature 36.7 C (98 F) 04/12/2017 10:08 AM CDT Respiratory Rate 14 04/12/2017 10:08 AM CDT Oxygen Saturation 100% 04/12/2017 10:08 AM CDT Inhaled Oxygen - - Concentration Weight 86.2 kg (190 lb) 04/12/2017 10:08 AM CDT Height 167.6 cm (5' 6") 04/12/2017 10:08 AM CDT Body Mass Index 30.67 04/12/2017 10:08 AM CDT in this encounter Functional Status Functional Status Response Date of Assessment Does the patient have a hearing impairment: No 04/12/2017 Does the patient have a visual impairment: Yes 04/12/2017 Does the patient have impaired ambulation: Yes 04/12/2017 Does the patient have an activity of daily living No 04/12/2017 (ADL) impairment: Does the patient have an instrumental activity of No 04/12/2017 daily living (IADL) impairment: Cognitive Status Response Date of Assessment Does the patient have a cognitive impairment: No 04/12/2017 as of this encounter Instructions * Patient Instructions - Zackary Joseph RN - 04/12/2017 10:00 AM CDT 04/12/2017 10:30 AM Clinic note: Pt seen in clinic by Dr. Mosher. Evaluated for pancreatic cyst. No surgery needed at this time. Risks and benefits discussed. Will get a CT scan in 6 months and have sent to our office. Zackary Joseph RN in this encounter Progress Notes * Gerry Mosher MD - 04/12/2017 10:00 AM CDT Formatting of this note may be different from the original. Date of Service: 04/12/2017 Sully Shay is a 67 y.o. female. Subjective: History of Present Illness Ms. 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 She has has this pancreatic cyst since 2012. She was recently hospitalized for a GI bleed and at the time an EUS was done and a 17 mm cyst noted concerning for IPMN, noted near the uncinate and no FNA was done due to positioning and risk for bleeding. She denies any abdominal pain out of the normal for her. She has had previous surgery and radiation for her ependymoma. Review of Systems Constitutional: Positive for fatigue. Negative for appetite change, chills and fever. HENT: Negative. Eyes: Negative. Respiratory: Negative. Negative for chest tightness and shortness of breath. Cardiovascular: Negative. Negative for chest pain and palpitations. Gastrointestinal: Positive for constipation. Negative for abdominal pain, nausea and vomiting. Endocrine: Negative. Genitourinary: Negative. Musculoskeletal: Positive for back pain. Skin: Negative. Allergic/Immunologic: Negative. Neurological: Positive for weakness. Hematological: Negative. Psychiatric/Behavioral: Negative. 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 Neoplasm of unspecified nature, site unspecified Numbness of leg right, left Numbness of legs Seasonal allergies Seizure (HCC) related to [place]-none for 20+yrs SOB (shortness of breath) sometimes Symptoms involving digestive system Thyroid nodule Unspecified cardiovascular disease Past Surgical History: Procedure Laterality Date HX APPENDECTOMY HX SECTION X2 1975, 1977 HX HYSTERECTOMY DC LAMINECTOMY BX/EXC ISPI RADHA XDRL LUMBAR 1980, late X2 DC REMOVAL CERCLAGE SUTURE UNDER ANESTHESIA DC SALPINGO-OOPHORECTOMY COMPL/PRTL UNI/BI SPX Family History Problem Relation Age of Onset Heart Failure Mother Arthritis-rheumatoid Mother Stroke Mother Cancer Father Heart Failure Maternal Aunt Stroke Maternal Aunt Heart Failure Maternal Uncle Stroke Maternal Uncle Heart Failure Maternal Grandmother Stroke Maternal Grandmother Heart Failure Maternal Grandfather Stroke Maternal Grandfather Diabetes Paternal Grandmother Social History Social History Marital status: Spouse name: N/A Number of children: N/A Years of education: N/A Social History Main Topics Smoking status: Never Smoker Smokeless tobacco: None Alcohol use No Drug use: No Sexual activity: Not Asked Other Topics Concern None Social History Narrative Objective: diazepam (VALIUM) 5 mg tablet Take 5 mg by mouth Every 6 Hours as needed for Anxiety. diltiazem CD (CARDIZEM CD) 180 mg capsule Take 180 mg by mouth daily. hydrocodone/acetaminophen (VICODIN) 5/500 mg tablet Take 1 Tab by mouth Every 4 Hours as needed for Pain. Usually takes 1/2 tab once daily olmesartan (BENICAR) 20 mg tablet Take 20 mg by mouth Daily. pantoprazole DR,+, (PROTONIX) 40 mg tablet Take 40 mg by mouth Twice Daily. propafenone (RYTHMOL) 225 mg tablet Take 225 mg by mouth three times daily. ranitidine,+, (ZANTAC) 150 mg tablet Take 150 mg by mouth Twice Daily. rivaroxaban (XARELTO) 20 mg tab tablet Take 20 mg by mouth daily. tramadol,+, (ULTRAM) 50 mg tablet Take 50 mg by mouth Every 6 Hours as needed for Pain. Vitals: 04/12/17 1008 BP: 155/53 Pulse: 64 Resp: 14 Temp: 36.7 C (98 F) TempSrc: Oral SpO2: 100% Weight: 86.2 kg (190 lb) Height: 167.6 cm (66") Body mass index is 30.67 kg/(m^2). Labs and Diagnostic Test: MELD: No flowsheet data found. Basic Labs: Basic Labs Latest Ref Rng & Units 12/17/2008 04/14/2008 NA 137 - 147 MMOL/L 139 141 K 3.5 - 5.1 MMOL/L 4.2 3.9 CL 98 - 110 MMOL/L 104 104 BUN 8 - 20 MG/DL 40(H) 24(H) CR 0.4 - 1.00 MG/DL 1.10(H) 1.11(H) GLUX 70 - 110 MG/DL 105 90 CA 9.0 - 11.0 MG/DL 9.2 9.3 TP 6.0 - 8.0 G/DL - - TBILI 0.3 - 1.2 MG/DL - - ALB 3.5 - 5.0 G/DL - - ALKP 25 - 110 U/L - - AST 7 - 40 U/L - - ALT 7 - 56 U/L - - GFR >60 ML/MIN/1.73 SQM 51(L) 51(L) GFRAA >60 ML/MIN/1.73 SQM >60 >60 GAP 8 - 12 9 8 TSH 0.35 - 5.00 MCU/ML - - WBC 4.5 - 11.0 K/UL 11.1(H) 7.7 RBC 4.0 - 5.0 M/UL 4.10 3.90(L) HGB 12.0 - 15.0 GM/DL 12.7 12.1 MCV 80 - 100 FL 92.0 92.0 MCH 26 - 34 PG 31.0 31.0 MCHC 32.0 - 36.0 G/DL 34.0 34.0 PLT 150 - 400 K/UL 218 250 MPV 7 - 11 FL 8.0 8.0 RDW 11 - 15 % 14.0 13.9 NEUT 41 - 77 % 74 - ANC 1.8 - 7.0 K/UL 8.22(H) - LYMA 24 - 44 % 19(L) - ALYM 1.0 - 4.8 K/UL 2.08 - CARA 4 - 12 % 6 - AMONO 0 - 0.80 K/UL 0.61 - AEOS 0 - 0.45 K/UL 0.15 - BASA 0 - 2 % 0 - ABAS 0 - 0.20 K/UL 0.03 - INR 0.9 - 1.1 1.0 - PTT 26.1 - 37.6 SEC 27.6 - Metabolic Labs: Metabolic Labs Latest Ref Rng & Units 06/17/2007 05/23/2007 Alk Phos 25 - 110 U/L 73 - TSH 0.35 - 5.00 MCU/ML 2.738 2.716 Autoimmune Labs: No flowsheet data found. Hepatitis Labs: No flowsheet data found. Drug Levels No flowsheet data found. Imaging: Results for orders placed during the hospital encounter of 12/17/08 CT GUIDE NEEDLE PLACEMENT Impression CT GUIDE NEEDLE PLACEMENT CT-GUIDED DRAINAGE OF CAUDAL MENINGOCELE DISCUSSED ABOVE, WITH APPROXIMATELY 45 CC OF CLEAR CSF REMOVED. Results for orders placed during the hospital encounter of 04/14/08 XR CHEST, 2 VIEWS Physical Exam Constitutional: She is oriented to person, place, and time. She appears well- developed and well-nourished. HENT: Head: Normocephalic and atraumatic. Eyes: Pupils are equal, round, and reactive to light. Neck: Normal range of motion. Cardiovascular: Normal rate and regular rhythm. Pulmonary/Chest: Effort normal and breath sounds normal. Abdominal: Soft. Bowel sounds are normal. She exhibits no distension and no mass. There is no tenderness. There is no guarding. Musculoskeletal: Normal range of motion. Neurological: She is alert and oriented to person, place, and time. Skin: Skin is warm and dry. Psychiatric: She has a normal mood and affect. Her behavior is normal. Nursing note and vitals reviewed. Assessment and Plan: Ms. 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 -Reviewed imaging and recommend no surgical intervention at this time -Recommend observation and Ct scan in 6 months -If cyst continues to enlarge then would discuss surgical options Guerline Silva MD Seen and discussed with Dr. Mosher I performed a history and physical examination of the patient and discussed the management with the resident and nursing team. I reviewed the residents note and agree with the documented findings and plan of care. Gerry Mosher MD in this encounter Plan of Treatment Name Priority Associated Diagnoses Order Schedule CT ABD/PELV WO/W CONTRAST Routine Pancreatic cyst Expected: 10/09/2017 (Approximate), Expires: 04/12/2018 as of this encounter Visit Diagnoses Diagnosis Pancreatic cyst - Primary Cyst and pseudocyst of pancreas in this encounter
--- OUTSIDE RECORDS SUMMARY | 2017-07-02 15:16 | XMS REPORT | Encounter Summary ---
Author Author [facility] Address Unknown Phone Unavailable Care Team Providers Care Color Receiver Name Role Phone PCP Unavailable Reason for Visit * Reason Comments Navigation Assessment Encounter Details Date Type Department Care Team Description 04/09/2017 Telephone [facility] Louise Valle RN Navigation Assessment [facility] - Exam [address] [place], [place] [phone] Social History Tobacco Use Types Packs/Day Years Used Date Never Smoker Alcohol Use Drinks/Week oz/Week Comments No Sex Assigned at Date Recorded Not on file as of this encounter Functional Status Functional Status Response Date of Assessment Does the patient have a hearing impairment: No 08/17/2015 Does the patient have a visual impairment: Yes 08/17/2015 Does the patient have impaired ambulation: No 08/17/2015 Does the patient have an activity of daily living No 08/17/2015 (ADL) impairment: Does the patient have an instrumental activity of No 08/17/2015 daily living (IADL) impairment: Cognitive Status Response Date of Assessment Does the patient have a cognitive impairment: No 08/17/2015 as of this encounter Miscellaneous Notes * Telephone Encounter - Louise Valle RN - 04/09/2017 3:20 PM CDT Formatting of this note may be different from the original. Navigation Intake Assessment Document Patient Name: Sully Shay : 1950 Insurance: [employer] P[employer] Appointment Info: Future Appointments Date Time Provider Department Center 04/12/2017 10:00 AM Gerry Mosher MD CFT LTX [facility] None 04/12/2017 12:00 PM PAC ROOM 6 PRE None Diagnosis & Reason for Visit: Self referral for 2nd opinion for Pancreatic cyst. 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 Pt admitted to local hospital on and treated for GI bleed. Pt had appt with local GI for f/u on Pancreatic cyst, but due to pt being hospitalized, pt was evaluated and an EUS done- a 17 mm cyst noted concerning for IPMN, noted near the uncinate, no FNA was done due to positioning and risk for bleeding. Pt has hx of ependymoma of spinal cord in 1981/ pt was treated with surgery, radiation and intrathecal methotrexate Physician Info: Referring Physician: Self referral Location of Films: PACS Location of Pathology: No pathology Prior Treatment (XRT, Surgery, Chemotherapy): Pt has hx of ependymoma of spinal cord in 1981/ pt was treated with surgery, radiation and intrathecal methotrexate NEEDS Assessment: Genetic Counseling: Not Applicable Nutrition: No needs identified and Patient provided information on all available services Social Work/Financial: No need identified and Patient provided information on available services Spiritual & Emotional: No needs identified Physical: No needs identified Pt ambulatory with cane. Communication: No needs identified Oncofertility - Females age 40 and under; Males age 50 and under : Not applicable in this encounter Plan of Treatment Not on fileas of this encounter Visit Diagnoses Not on filein this encounter
--- OUTSIDE RECORDS SUMMARY | 2017-07-02 15:16 | XMS REPORT | Encounter Summary ---
Author Author [facility] Organization [facility] Address Unknown Phone Unavailable Care Team Providers Care Chemical Waste Management Technician Name Role Phone PCP Unavailable Reason for Visit * Reason Comments Referral [facility] Encounter Details Date Type Department Care Team Description 04/04/2017 Telephone Center for Gerry Mosher MD Referral ([facility]) Transplantation-Hepatobil [address] [facility] iary Pancreas [place] 2005 [address] [place] [address] [facility] [phone] [place] [address] Social History Tobacco Use Types Packs/Day Years [...] encounter Miscellaneous Notes * Telephone Encounter - Erica Venegas - 04/04/2017 2:26 PM CDT Email received from Louise with CC Scheduling requesting pt see Rodney or Nomi to discuss IPMN, scheduled pt on 04-12-17 10a.m., with Nomi. in this encounter Plan of Treatment Not on fileas of this encounter Visit Diagnoses Not on filein this encounter
--- OUTSIDE RECORDS SUMMARY | 2017-07-02 15:16 | XMS REPORT | Encounter Summary ---
Author Author [facility] Organization [facility] Address Unknown Phone Unavailable Care Team Providers Care Cook Pickled Meat Name Role Phone PCP Unavailable Encounter Details Date Type Department Care Team Description 04/03/2017 Ancillary Rad Outpatient, Radiologist Diagnosis unknown Orders [address] [place] [address] Social History Tobacco Use Types Packs/Day Years [...] impairment: No 08/17/2015 as of this encounter Plan of Treatment Not on fileas of this encounter Results * CT ABD/PEL EXTERNAL IMAGING (03/31/2017) Narrative This order has been auto finalized and does not contain a result. * CT HEAD EXTERNAL IMAGING (2017) Narrative This order has been auto finalized and does not contain a result. * CT ABD/PEL EXTERNAL IMAGING (12/07/2016) Narrative This order has been auto finalized and does not contain a result. * MRI HEAD EXTERNAL IMAGING (09/18/2013) Narrative This order has been auto finalized and does not contain a result. * MRI L-SPINE EXTERNAL IMAGING (09/02/2013) Narrative This order has been auto finalized and does not contain a result. * CT ABD/PEL EXTERNAL IMAGING (12/07/2012) Narrative This order has been auto finalized and does not contain a result. * MRI HEAD EXTERNAL IMAGING (11/10/2012) Narrative This order has been auto finalized and does not contain a result. * CT HEAD EXTERNAL IMAGING (11/09/2012) Narrative This order has been auto finalized and does not contain a result. * CT HEAD EXTERNAL IMAGING (10/24/2012) Narrative This order has been auto finalized and does not contain a result. in this encounter Visit Diagnoses Diagnosis Diagnosis unknown Other unknown and unspecified cause of morbidity or mortality in this encounter
--- OUTSIDE RECORDS SUMMARY | 2017-07-02 15:16 | XMS REPORT | Clinical Summary ---
Author Author [facility] Organization [facility] Address Unknown Phone Unavailable Care Team Providers Care Refrigerated National Truck Driver Name Role Phone PCP Unavailable Source Comments Some departments are not documenting in the electronic medical record. If you do not see the information that you expected, contact Release of Information in the Health Information Management department at [phone] for further assistance in locating additional records.[facility] Allergies Active Allergy Reactions Severity Noted Date [...] of submandibular gland 05/14/2008 Thyroid nodule 06/27/2007 Encounters Date Type Specialty Care Team Description 04/12/2017 Office Visit Transplant Surgery Presley Stevens MD Pancreatic cyst (Primary Gerry Mosher MD Dx) 04/09/2017 Telephone Oncology Louise Valle RN Navigation Assessment 04/09/2017 Ancillary Radiology Outpatient, Radiologist Diagnosis unknown Orders 04/04/2017 Documentation Oncology Aparna Feldman 04/04/2017 Telephone Transplant Surgery Gerry Mosher MD Referral ([facility]) 04/03/2017 Ancillary Radiology Outpatient, Radiologist Diagnosis unknown Orders 04/02/2017 Documentation Oncology Louise Valle RN from Last 3 Months Family History Medical History Relation Name Comments [...] Mass Index 30.67 04/12/2017 10:08 AM CDT Plan of Treatment Health Maintenance Due Date Last Done Comments HEPATITIS C SCREENING 1950 PHYSICAL (COMPREHENSIVE) 1959 EXAM PERTUSSIS VACCINE 1963 TETANUS VACCINE 1969 BREAST CANCER SCREENING 1992 COLORECTAL CANCER 2002 SCREENING SHINGLES VACCINE 2012 INFLUENZA VACCINE 01/09/2017 OSTEOPOROSIS SCREENING 2017 PREVNAR/PNEUMOVAX (#1) 2017 Results Not on filefrom Last 3 Months
--- OUTSIDE RECORDS SUMMARY | 2017-07-02 15:16 | XMS REPORT | Encounter Summary ---
Author Author [facility] Organization [facility] Address Unknown Phone Unavailable Care Team Providers Care Dragsaw Operator Name Role Phone PCP Unavailable Encounter Details Date Type Department Care Team Description 04/09/2017 Ancillary Rad Outpatient, Radiologist Diagnosis unknown Orders [address] [place] [address] Social History Tobacco Use Types Packs/Day Years [...] on fileas of this encounter Results * MRI PELVIS EXTERNAL IMAGING (09/04/2016) Narrative This order has been auto finalized and does not contain a result. * MRI L-SPINE EXTERNAL IMAGING (07/10/2016 12:30 AM) Narrative This order has been auto finalized and does not contain a result. * MRI HEAD EXTERNAL IMAGING (07/10/2016 12:15 AM) Narrative This order has been auto finalized and does not contain a result. * MRI C-SPINE EXTERNAL IMAGING (07/10/2016) Narrative This order has been auto finalized and does not contain a result. in this encounter Visit Diagnoses Diagnosis Diagnosis unknown Other unknown and unspecified cause of morbidity or mortality in this encounter
--- OUTSIDE RECORDS SUMMARY | 2017-07-02 15:16 | XMS REPORT | Encounter Summary ---
Author Author [facility] Organization [facility] Address Unknown Phone Unavailable Care Team Providers Care Mechanical Equipment Test Engineer Name Role Phone PCP Unavailable Encounter Details Date Type Department Care Team Description 04/04/2017 Documentation [facility] Aparna Feldman [facility] - [facility] Exam [address] [place] [address] Social History Tobacco Use Types Packs/Day Years [...] impairment: No 08/17/2015 as of this encounter Progress Notes * Aparna Feldman - 04/04/2017 6:41 PM CDT Two discs of images including multiple images received from [employer]. Discs of images delivered to radiology to be loaded into PACS. in this encounter Plan of Treatment Not on fileas of this encounter Visit Diagnoses Not on filein this encounter
--- OUTSIDE RECORDS SUMMARY | 2017-07-02 15:16 | XMS REPORT | Continuity of Care Document ---
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 Team Providers Care Senior Production Manager Name Role Phone [employer] Unavailable Unavailable Problems Medications Allergies, Adverse Reactions, Alerts Immunizations Results Vital Signs Encounters Location Location Details Encounter Type Encounter Number Reason For Visit Attending Provider ADM Date DC Date Status Source O [id number] B[facility]LEY CHEATHAM 04/11/2011 04/11/2011 Active [facility] O 03/31/2017 03/31/2017 Active [facility] OUTPATIENT [id number] ENEIDA METZGER 04/12/20172016 Active [facility] Procedures Plan of Care Social History Assessment and Plan Family History Advance Directives Functional Status
--- OUTSIDE RECORDS SUMMARY | 2017-07-02 15:16 | XMS REPORT | Encounter Summary ---
Author Author [facility] Organization [facility] Address Unknown Phone Unavailable Care Team Providers Care Code Official Name Role Phone PCP Unavailable Encounter Details Date Type Department Care Team Description 04/02/2017 Documentation [facility] Louise Valle RN [facility] - [facility] Exam [address] [place] [address] Social History Tobacco Use Types Packs/Day Years [...]
--- OUTSIDE RECORDS SUMMARY | 2017-07-02 15:19 | XMS REPORT | Continuity of Care Document ---
Author Author [facility] Address Unknown Phone Unavailable Allergies Active Description Code Type Severity Reaction Onset Reported/Identified Relationship to Patient Clinical Status Yes atenolol [id number] Drug Allergy Unknown N/A 04/05/2007 Yes Beta-Blockers (Beta-Adrenergic Bloc [id number] Drug Allergy Unknown N/A 05/2013 Yes atenolol Drug Allergy N/A N/A 05/27/2014 Medications There is no data. Problems Date Dx Coded Attending Type Code [...] Ot 530.81 ESOPHAGEAL REFLUX 06/15/2012 Ot 722.52 LUMB/ LUMBOSAC DISC DEGEN 06/15/2012 Ot 786.50 CHEST PAIN NOS 06/15/2012 Ot V10.89 HX OF MALIGNANCY NEC 06/15/2012 Ot V17.49 FAMILY HISTORY OF OTHER CARDIOVASCULAR D 06/15/2012 Ot V58.69 OTH MED,LT, CURRENT USE 09/15/2012 Ot 427.31 ATRIAL FIBRILLATION 09/29/2012 [...] 427.31 ATRIAL FIBRILLATION 11/10/2012 ALDAIR BRADEN, BRENDAN Mata Ot 599.0 URIN TRACT INFECTION NOS 11/10/2012 [...] DOQUELINE S Ot 427.31 ATRIAL FIBRILLATION 11/21/2012 ANTHONY PERDOMO DO S Ot 530.11 REFLUX ESOPHAGITIS 11/21/2012 RIGO PERDOMO DOQUELINE S Ot 530.81 ESOPHAGEAL REFLUX 11/21/2012 ORENDER DO, ANTHONY S Ot 578.9 GASTROINTEST HEMORR NOS 11/21/2012 [...] DO Ot V58.69 OTH MED,LT,CURRENT USE 04/22/2014 ANHTONY PERDOMO DO Ot 401.9 HYPERTENSION NOS 04/22/2014 [...] 06/24/2014 Ot 717.40 06/24/2014 Ot 427.31 06/24/2014 ORENDER DO, ANTHONY S Ot 723.1 [...] GONZÁLEZ BRADEN, DAMON Gunn Ot 785.9 06/25/2014 GONZÁLEZ BRADEN, DAMON Gunn Ot 786.50 07/27/2014 GONZÁLEZ BRADEN, DAMON Gunn Ot 401.9 07/27/2014 GONZÁLEZ BRADEN, DAMON Gunn Ot 427.31 07/27/2014 GONZÁLEZ BRADEN, DAMON Gunn Ot 433.10 07/27/2014 GONZÁLEZ BRADEN, DAMON Gunn Ot 433.30 07/27/2014 GONZÁLEZ BRAEDN, DAMON Gunn Ot 785.9 07/27/2014 DAMON CLAUDIO MD Ot [...] ORENDER DO, ANTHONY S Ot 780.4 09/10/2014 GNOZÁLEZ BRADEN, DAMON Gunn Ot 401.9 09/10/2014 GONZÁLEZ BRADEN, DAMON Gunn Ot 427.31 09/10/2014 GONZÁLEZ BRADEN, DAMON Gunn Ot 433.10 09/10/2014 GONZÁLEZ BRADEN, DAMON Gunn Ot 433.30 09/10/2014 GONZÁLEZ BRADEN, DAMON Gunn Ot 785.9 09/10/2014 GONZÁLEZ BRADEN, DAMON Gunn Ot 786.50 11/13/2014 Ot 574.20 11/13/2014 Ot [...] CLAUDIO MD Ot 786.50 11/13/2014 MARGO JOHNSON APRN Ot 719.46 JOINT PAIN-L/LEG 11/13/2014 MARGO JOHNSON SAFETY OFFICER Ot 844.9 SPRAIN OF KNEE LEG NOS 11/13/2014 MARGO JOHNSON SAFETY OFFICER Ot E000.8 OTHER EXTERNAL CAUSE STATUS 11/13/2014 MARGO JOHNSON SAFETY OFFICER Ot E888.9 FALL NOS 05/10/2015 KHRIS BRADEN, BABAK Taylor Ot I45.10 UNSPECIFIED RIGHT BUNDLE-BRANCH BLOCK 05/10/2015 BABAK PINEDO MD Ot I48.91 UNSPECIFIED ATRIAL FIBRILLATION 05/10/2015 BABAK PINEDO MD Ot R06.00 DYSPNEA, UNSPECIFIED 05/10/2015 BABAK PINEDO MD Ot R07.89 OTHER CHEST PAIN 05/10/2015 BABAK PINEDO MD Ot R11.0 NAUSEA 05/10/2015 BABAK PINEDO MD Ot R78.9 FINDING OF UNSP SUBSTANCE, NOT NORMALLY 05/10/2015 BABAK PINEDO MD Ot Z79.01 LINE APPLIANCE ASSEMBLER (CURRENT) USE OF 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 05/10/2015 BABAK PINEDO MD Ot Z85.89 PERSONAL HISTORY OF MALIGNANT NEOPLASM O 05/10/2015 BABAK PINEDO MD Ot Z90.49 ACQUIRED ABSENCE OF OTHER SPECIFIED PART 07/29/2015 KIKO BRADEN, BEST Molina Ot K62.5 07/29/2015 KIKO BRADEN, BEST Molina Ot Z01.818 09/28/2015 Ot 715.36 LOC OSTEOARTH [...] BILTRAL ARTERY OCCLUSION WO CEREBRA 09/28/2015 DAMON CLADUIO MD Ot 785.9 CARDIOVAS SYS SYMP NEC [...] S Ot 722.52 LUMB/LUMBOSAC DISC DEGEN 10/07/2015 EDVINNDER DO, ANTHONY S Ot 723.1 CERVICALGIA 10/07/2015 [...] S Ot I25.10 ATHSCL HEART DISEASE OF [place] CORONARY 11/05/2015 ANTHONY PERDOMO DO S Ot I48.0 PAROXYSMAL ATRIAL FIBRILLATION 11/05/2015 BRAVO PERDOMO DOLINE S Ot K21.9 GASTRO-ESOPHAGEAL REFLUX DISEASE WITHOUT 11/05/2015 ANTHONY PERDOMO DO S Ot K92.2 GASTROINTESTINAL HEMORRHAGE, UNSPECIFIED 11/05/2015 ANTHONY PERDOMO DO S Ot M54.9 DORSALGIA, UNSPECIFIED 11/05/2015 BRAVO PERDOMO DOLINE S Ot R29.818 OTHER SYMPTOMS AND SIGNS INVOLVING THE N 11/05/2015 ANTHONY PERDOMO DO S Ot R73.09 OTHER ABNORMAL GLUCOSE 11/05/2015 ANTHONY PERDOMO DO S Ot Y84.8 [facility] MEDICAL PROCEDURES CAUSE ABN REACT/C 11/05/2015 ANTHONY PERDOMO DO S Ot Z79.01 SENIOR CARE (CURRENT) USE OF 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 11/05/2015 ANTHONY PERDOMO DO S Ot Z85.848 PERSONAL HISTORY OF MALIGNANT NEOPLASM O 11/05/2015 BRAVO PERDOMO DOYANIV Ricci Ot Z92.21 PERSONAL HISTORY OF ANTINEOPLASTIC CHEMO 11/05/2015 CONOR PLATT ANTHONY S Ot Z92.3 PERSONAL HISTORY OF IRRADIATION 11/05/2015 CONOR PLATT ANTHONY S Ot D62 ACUTE POSTHEMORRHAGIC ANEMIA 11/05/2015 CONOR PLATTANTHONY Ot F41.9 ANXIETY DISORDER, UNSPECIFIED 11/05/2015 EDVINMORE PLATT ANTHONY S Ot G43.909 MIGRAINE, UNSP, NOT INTRACTABLE, WITHOUT 11/05/2015 CONOR PLATT ANTHONY S Ot I10 ESSENTIAL (PRIMARY) HYPERTENSION 11/05/2015 EDVINMORE PLATT ANTHONY S Ot I25.10 ATHSCL HEART DISEASE OF [place] CORONARY 11/05/2015 EDVINMORE PLATT ANTHONY S Ot I48.0 PAROXYSMAL ATRIAL FIBRILLATION 11/05/2015 EDVINMORE PLATTANTHONY Ot K21.9 GASTRO-ESOPHAGEAL REFLUX DISEASE WITHOUT 11/05/2015 EDVINMORE PLATT ANTHONY S Ot K92.2 GASTROINTESTINAL HEMORRHAGE, UNSPECIFIED 11/05/2015 EDVINMORE PLATTRIGOANTHONY S Ot M54.9 DORSALGIA, UNSPECIFIED 11/05/2015 EDVINMORE PLATT ANTHONY S Ot R29.818 OTHER SYMPTOMS AND SIGNS INVOLVING THE N 11/05/2015 CONOR PLATT ANTHONY S Ot R73.09 OTHER ABNORMAL GLUCOSE 11/05/2015 EDVINMORE PLATT ANTHONY S Ot Y84.8 OT MEDICAL PROCEDURES CAUSE ABN REACT/C 11/05/2015 EDVINMORE ANTHONY PLATT Ot Z79.01 LINE APPLIANCE ASSEMBLER (CURRENT) USE OF 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 11/05/2015 EDVINMORE PLATTANTHONY Ot Z85.848 PERSONAL HISTORY OF MALIGNANT NEOPLASM O 11/05/2015 EDVINMORE PLATTANTHONY Ot Z92.21 PERSONAL HISTORY OF ANTINEOPLASTIC CHEMO 11/05/2015 CONOR ANTHONY Ot Z92.3 PERSONAL HISTORY OF IRRADIATION 11/06/2015 CONOR ANTHONY Ot D62 ACUTE POSTHEMORRHAGIC ANEMIA 11/06/2015 ANTHONY PERDOMO DO Ot F41.9 ANXIETY DISORDER, UNSPECIFIED 11/06/2015 ANTHONY PERDOMO DO Ot G43.909 MIGRAINE, UNSP, NOT INTRACTABLE, WITHOUT 11/06/2015 ANTHONY PERDOMO DO Ot I10 ESSENTIAL (PRIMARY) HYPERTENSION 11/06/2015 ANTHONY PERDOMO DO Ot I25.10 ATHSCL HEART DISEASE OF [place] CORONARY 11/06/2015 ANTHONY PERDOMO DO Ot I48.0 PAROXYSMAL ATRIAL FIBRILLATION 11/06/2015 ANTHONY PERDOMO DO S Ot K21.9 GASTRO-ESOPHAGEAL REFLUX DISEASE WITHOUT 11/06/2015 ANTHONY PERDOMO DO S Ot K44.9 DIAPHRAGMATIC HERNIA WITHOUT OBSTRUCTION 11/06/2015 ANTHONY PERDOMO DO Ot K57.30 DVRTCLOS OF LG INT W/O PERFORATION OR AB 11/06/2015 CONOR PLATT ANTHONY Ricci Ot K92.2 GASTROINTESTINAL HEMORRHAGE, UNSPECIFIED 11/06/2015 CONOR PLATT ANTHONY Ricci Ot M54.9 DORSALGIA, UNSPECIFIED 11/06/2015 CONOR PLATT ANTHONY S Ot R29.818 OTHER SYMPTOMS AND SIGNS INVOLVING THE N 11/06/2015 ANTHONY PERDOMO DO Ot R73.09 OTHER ABNORMAL GLUCOSE 11/06/2015 ANTHONY PERDOMO DO Ot Y84.8 [facility] MEDICAL PROCEDURES CAUSE ABN REACT/C 11/06/2015 CONOR PLATT ANTHONY Ricci Ot Z79.01 LINE APPLIANCE ASSEMBLER (CURRENT) USE OF 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 11/06/2015 CONOR PLATT ANTHONY Ricci Ot Z85.848 PERSONAL HISTORY OF MALIGNANT NEOPLASM O 11/06/2015 CONOR PLATT ANTHONY S Ot Z92.21 PERSONAL [...] D64.9 ANEMIA, UNSPECIFIED 11/16/2015 KIKO BRADEN, BEST M Ot K44.9 DIAPHRAGMATIC HERNIA WITHOUT OBSTRUCTION 11/16/2015 [...] S Ot I25.10 ATHSCL HEART DISEASE OF [place] CORONARY 12/26/2015 ORENDER DO, ANTHONY S Ot [...] S Ot I25.10 ATHSCL HEART DISEASE OF [place] CORONARY 12/26/2015 ORENDER DO, ANTHONY S Ot [...] NOS 02/29/2016 Ot 427.31 ATRIAL FIBRILLATION 02/29/2016 BRAVO PERDOMO DOLINE S Ot 723.1 CERVICALGIA 02/29/2016 BRAVO PERDOMO DOLINE S Ot 724.2 LUMBAGO 02/29/2016 CONOR PLATT, ANTHONY S Ot 780.4 DIZZINESS AND GIDDINESS 02/29/2016 CONOR PLATT, ANTHONY S Ot 348.89 OTHER CONDITIONS OF BRAIN 02/29/2016 CONOR PLATT, ANTHONY S Ot 722.52 LUMB/LUMBOSAC DISC DEGEN 02/29/2016 CONOR PLATT, ANTHONY S Ot 723.1 CERVICALGIA 02/29/2016 CONOR PLATT, ANTHONY S Ot 780.4 DIZZINESS AND GIDDINESS 02/29/2016 DAMON CLAUDIO MD Ot 401.9 HYPERTENSION NOS 02/29/2016 DAMON CLAUDIO [...] Z01.818 ENCOUNTER FOR OTHER PREPROCEDURAL EXAMIN 02/29/2016 KAREN HOOVER MDVIER M Ot D64.9 ANEMIA, UNSPECIFIED 02/29/2016 KIKO BRADEN, BEST Molina Ot K44.9 DIAPHRAGMATIC HERNIA WITHOUT OBSTRUCTION 02/29/2016 KIKO BRADEN, BEST Molina Ot K92.2 GASTROINTESTINAL HEMORRHAGE, UNSPECIFIED 02/29/2016 ORENDER DO, ANTOHNY S Ot Z12.31 ENCNTR SCREEN MAMMOGRAM FOR [...] Ot 780.4 DIZZINESS AND GIDDINESS 09/12/2016 GONZÁLEZ BRADENDAMON Ot 401.9 HYPERTENSION NOS 09/12/2016 DAMON CLAUDIO [...] Z01.818 ENCOUNTER FOR OTHER PREPROCEDURAL EXAMIN 09/12/2016 BEST HOOVER MD Ot D64.9 ANEMIA, UNSPECIFIED 09/12/2016 BEST HOOVER MD Ot K44.9 DIAPHRAGMATIC HERNIA WITHOUT OBSTRUCTION 09/12/2016 BEST HOOVER MD Ot K92.2 GASTROINTESTINAL HEMORRHAGE, UNSPECIFIED 09/12/2016 ORENDER DO, ANTHONY S Ot Z12.31 ENCNTR SCREEN MAMMOGRAM FOR MALIGNANT NE 09/12/2016 ORENDER DO, ANTHONY S Ot D64.9 ANEMIA, UNSPECIFIED 09/12/2016 ORENDER DO, ANTHONY S Ot R06.00 DYSPNEA, UNSPECIFIED 09/12/2016 ORENDER DO, ANTHONY S Ot R53.83 OTHER FATIGUE 09/12/2016 ORENDER DO, ANTHONY S Ot R60.9 EDEMA, UNSPECIFIED 09/12/2016 ORENDER DO, ANTHONY S Ot R73.02 IMPAIRED GLUCOSE TOLERANCE (ORAL) 09/22/2016 DAMON CLAUDIO MD Ot F41.9 ANXIETY DISORDER, UNSPECIFIED 09/22/2016 DAMON CLAUDIO MD Ot I10 ESSENTIAL (PRIMARY) HYPERTENSION 09/22/2016 DAMON CLAUDIO MD Ot I48.0 PAROXYSMAL ATRIAL FIBRILLATION 09/22/2016 DAMON CLAUDIO MD Ot K92.2 GASTROINTESTINAL HEMORRHAGE, UNSPECIFIED 09/22/2016 DAMON CLAUDIO MD Ot R07.89 OTHER CHEST PAIN 12/08/2016 MARGO JOHNSON APRN Ot E11.9 TYPE 2 DIABETES MELLITUS WITHOUT COMPLIC 12/08/2016 MARGO JOHNSON SAFETY OFFICER Ot I10 ESSENTIAL (PRIMARY) HYPERTENSION 12/08/2016 MARGO JOHNSON SAFETY OFFICER Ot I48.91 UNSPECIFIED ATRIAL FIBRILLATION 12/08/2016 MARGO JOHNSON SAFETY OFFICER Ot K21.9 GASTRO-ESOPHAGEAL REFLUX DISEASE WITHOUT 12/08/2016 MARGO JOHNSON SAFETY OFFICER Ot K59.00 CONSTIPATION, UNSPECIFIED 12/08/2016 MARGO JOHNSON SAFETY OFFICER Ot Z79.899 OTHER SENIOR CARE (CURRENT) DRUG THERAPY 03/11/2017 BABAK PINEDO MD Ot E11.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 03/11/2017 BABAK PINEDO MD Ot F41.9 ANXIETY DISORDER, UNSPECIFIED 03/11/2017 BABAK PINEDO MD Ot G43.909 MIGRAINE, UNSP, NOT INTRACTABLE, WITHOUT 03/11/2017 BABAK PINEDO MD Ot I10 ESSENTIAL (PRIMARY) HYPERTENSION 03/11/2017 BABAK PINEDO MD Ot I48.91 UNSPECIFIED ATRIAL FIBRILLATION 03/11/2017 BABAK PINEDO MD Ot K21.9 GASTRO-ESOPHAGEAL REFLUX DISEASE WITHOUT 03/11/2017 BABAK PINEDO MD Ot K59.00 CONSTIPATION, UNSPECIFIED 03/11/2017 BABAK PINEDO MD Ot M16.0 BILATERAL PRIMARY OSTEOARTHRITIS OF HIP 03/11/2017 BABAK PINEDO MD Ot M17.4 OTHER BILATERAL SECONDARY OSTEOARTHRITIS 03/11/2017 BABAK PINEDO MD Ot M47.9 SPONDYLOSIS, UNSPECIFIED 03/11/2017 BABAK PINEDO MD Ot R10.11 RIGHT UPPER QUADRANT PAIN 03/11/2017 BABAK PINEDO MD Ot Z87.59 PERSONAL HISTORY OF COMP OF PREG, CHLDBR 03/11/2017 BABAK PINEDO MD Ot Z90.49 ACQUIRED ABSENCE OF OTHER SPECIFIED PART 03/11/2017 BABAK PINEDO MD Ot Z90.710 ACQUIRED ABSENCE OF BOTH CERVIX AND UTER 2017 HEATHER LUKE MD Ot D64.9 ANEMIA, UNSPECIFIED 2017 HEATHER LUKE MD Ot E11.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 2017 HEATHER LUKE MD Ot F41.9 ANXIETY DISORDER, UNSPECIFIED 2017 HEATHER LUKE MD Ot H53.8 OTHER VISUAL DISTURBANCES 2017 HEATHER LUKE MD Ot I10 ESSENTIAL (PRIMARY) HYPERTENSION 2017 HEATHER LUKE MD Ot I48.91 UNSPECIFIED ATRIAL FIBRILLATION 2017 HEATHER LUKE MD Ot K21.9 GASTRO-ESOPHAGEAL REFLUX DISEASE WITHOUT 2017 HEATHER LUKE MD Ot K92.2 GASTROINTESTINAL HEMORRHAGE, UNSPECIFIED 2017 HEATHER LUKE MD Ot N39.0 URINARY TRACT INFECTION, SITE NOT SPECIF 2017 HEATHER LUKE MD Ot R55 SYNCOPE AND COLLAPSE 2017 HEATHER LUKE MD Ot Z79.01 SENIOR CARE (CURRENT) USE OF 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 2017 HEATHER LUKE MD Ot Z85.830 PERSONAL HISTORY OF MALIGNANT NEOPLASM O 2017 HEATHER LUKE MD Ot Z87.59 PERSONAL HISTORY OF COMP OF PREG, CHLDBR 2017 HEATHER LUKE MD Ot Z90.49 ACQUIRED ABSENCE OF OTHER SPECIFIED PART 2017 HEATHER LUKE MD Ot Z90.710 ACQUIRED ABSENCE OF BOTH CERVIX AND UTER 2017 HEATHER LUKE MD Ot Z92.21 PERSONAL HISTORY OF ANTINEOPLASTIC CHEMO 2017 HEATHER LUKE MD Ot Z98.2 PRESENCE OF CEREBROSPINAL FLUID DRAINAGE 03/14/2017 HEATHER LUKE MD Ot D64.9 ANEMIA, UNSPECIFIED 03/14/2017 HEATHER LUKE MD Ot E11.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 03/14/2017 HEATHER LUKE MD Ot F41.9 ANXIETY DISORDER, UNSPECIFIED 03/14/2017 HEATHER LUKE MD Ot H53.8 OTHER VISUAL DISTURBANCES 03/14/2017 HEATHER LUKE MD Ot I10 ESSENTIAL (PRIMARY) HYPERTENSION 03/14/2017 HEATHER LUKE MD Ot I48.91 UNSPECIFIED ATRIAL FIBRILLATION 03/14/2017 HEATHER LUKE MD Ot K21.9 GASTRO-ESOPHAGEAL REFLUX DISEASE WITHOUT 03/14/2017 HEATHER LUKE MD Ot K92.2 GASTROINTESTINAL HEMORRHAGE, UNSPECIFIED 03/14/2017 HEATHER LUKE MD Ot N39.0 URINARY TRACT INFECTION, SITE NOT SPECIF 03/14/2017 HEATHER LUKE MD Ot R55 SYNCOPE AND COLLAPSE 03/14/2017 HEATHER LUKE MD Ot Z79.01 LINE APPLIANCE ASSEMBLER (CURRENT) USE OF 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 03/14/2017 HEATHER LUKE MD Ot Z85.830 PERSONAL HISTORY OF MALIGNANT NEOPLASM O 03/14/2017 HEATHER LUKE MD Ot Z87.59 PERSONAL HISTORY OF COMP OF PREG, CHLDBR 03/14/2017 HEATHER LUKE MD Ot Z90.49 ACQUIRED ABSENCE OF OTHER SPECIFIED PART 03/14/2017 HEATHER LUKE MD Ot Z90.710 ACQUIRED ABSENCE OF BOTH CERVIX AND UTER 03/14/2017 HEATHER LUKE MD Ot Z92.21 PERSONAL HISTORY OF ANTINEOPLASTIC CHEMO 03/14/2017 HEATHER LUKE MD Ot Z98.2 PRESENCE OF CEREBROSPINAL FLUID DRAINAGE 03/18/2017 HEATHER LUKE MD Ot D64.9 ANEMIA, UNSPECIFIED 03/18/2017 HEATHER LUKE MD Ot E11.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 03/18/2017 HEATHER LUKE MD Ot F41.9 ANXIETY DISORDER, UNSPECIFIED 03/18/2017 HEATHER LUKE MD Ot H53.8 OTHER VISUAL DISTURBANCES 03/18/2017 HEATHER LUKE MD Ot I10 ESSENTIAL (PRIMARY) HYPERTENSION 03/18/2017 HEATHER LUKE MD Ot I48.91 UNSPECIFIED ATRIAL FIBRILLATION 03/18/2017 HEATHER LUKE MD Ot K21.9 GASTRO-ESOPHAGEAL REFLUX DISEASE WITHOUT 03/18/2017 HEATHER LUKE MD Ot K92.2 GASTROINTESTINAL HEMORRHAGE, UNSPECIFIED 03/18/2017 HEATHER LUKE MD Ot N39.0 URINARY TRACT INFECTION, SITE NOT SPECIF 03/18/2017 HEATHER LUKE MD Ot R55 SYNCOPE AND COLLAPSE 03/18/2017 HEATHER LUKE MD Ot Z79.01 LINE APPLIANCE ASSEMBLER (CURRENT) USE OF 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 03/18/2017 HEATHER LUKE MD Ot Z85.830 PERSONAL HISTORY OF MALIGNANT NEOPLASM O 03/18/2017 HEATHER LUKE MD Ot Z87.59 PERSONAL HISTORY OF COMP OF PREG, CHLDBR 03/18/2017 HEATHER LUKE MD Ot Z90.49 ACQUIRED ABSENCE OF OTHER SPECIFIED PART 03/18/2017 HEATHER LUKE MD Ot Z90.710 ACQUIRED ABSENCE OF BOTH CERVIX AND UTER 03/18/2017 HEATHER LUKE MD Ot Z92.21 PERSONAL HISTORY OF ANTINEOPLASTIC CHEMO 03/18/2017 HEATHER LUKE MD Ot Z98.2 PRESENCE OF CEREBROSPINAL FLUID DRAINAGE 03/31/2017 OLAMIDE HAN DOA Ron Ot D64.9 ANEMIA, UNSPECIFIED 03/31/2017 GUILLE OLAMIDE PLATTA Ron Ot E11.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 03/31/2017 OLAMIDE HAN DOA Ron Ot E86.9 VOLUME DEPLETION, UNSPECIFIED 03/31/2017 GUILLE DO MARIE Ron Ot F41.9 ANXIETY DISORDER, UNSPECIFIED 03/31/2017 OLAMIDE HAN DOA Ron Ot G43.909 MIGRAINE, UNSP, NOT INTRACTABLE, WITHOUT 03/31/2017 GUILLE PLATT MARIE K Ot I10 ESSENTIAL (PRIMARY) HYPERTENSION 03/31/2017 OLAMIDE HAN DOA Ron Ot I48.91 UNSPECIFIED ATRIAL FIBRILLATION 03/31/2017 OLAMIDE HAN DOA Ron Ot K21.9 GASTRO-ESOPHAGEAL REFLUX DISEASE WITHOUT 03/31/2017 GUILLE OLAMIDE PLATTA K Ot K59.00 CONSTIPATION, UNSPECIFIED 03/31/2017 GUILLE PLATT MARIE K Ot R42 DIZZINESS AND GIDDINESS 03/31/2017 OLAMIDE HAN DOA Ron Ot Z79.01 LINE APPLIANCE ASSEMBLER (CURRENT) USE OF 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 03/31/2017 OLAMIDE HAN DOA Ron Ot Z82.49 FAMILY HX OF ISCHEM HEART DIS AND OTH DI 03/31/2017 OLAMIDE HAN DOA Ron Ot Z86.018 PERSONAL HISTORY OF OTHER BENIGN NEOPLAS 03/31/2017 MARIE HAN DO Ot Z87.19 PERSONAL HISTORY OF OTHER DISEASES OF TH 03/31/2017 MARIE HAN DO Ot Z90.49 ACQUIRED ABSENCE OF OTHER SPECIFIED PART 03/31/2017 OLAMIDE HAN DOA Ron Ot Z90.710 ACQUIRED ABSENCE OF BOTH CERVIX AND UTER 04/03/2017 MARIE HAN DO Ot D64.9 ANEMIA, UNSPECIFIED 04/03/2017 GUILLE DO MARIE K Ot E11.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 04/03/2017 GUILLE DO MARIE K Ot E86.9 VOLUME DEPLETION, UNSPECIFIED 04/03/2017 GUILLE DO MARIE K Ot F41.9 ANXIETY DISORDER, UNSPECIFIED 04/03/2017 GUILLE DO, MARIE K Ot G43.909 MIGRAINE, UNSP, NOT INTRACTABLE, WITHOUT 04/03/2017 GUILLE DO MARIE K Ot I10 ESSENTIAL (PRIMARY) HYPERTENSION 04/03/2017 GUILLE DO MARIE K Ot I48.91 UNSPECIFIED ATRIAL FIBRILLATION 04/03/2017 GUILLE DO MARIE K Ot K21.9 GASTRO-ESOPHAGEAL REFLUX DISEASE WITHOUT 04/03/2017 GUILLE DO MARIE K Ot K59.00 CONSTIPATION, UNSPECIFIED 04/03/2017 GUILLE DO MARIE K Ot R42 DIZZINESS AND GIDDINESS 04/03/2017 GUILLE OLAMIDEA K Ot Z79.01 LINE APPLIANCE ASSEMBLER (CURRENT) USE OF 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 04/03/2017 GUILLE OLAMIDEA K Ot Z82.49 FAMILY HX OF ISCHEM HEART DIS AND OTH DI 04/03/2017 GUILLE PLATT MARIE K Ot Z86.018 PERSONAL HISTORY OF OTHER BENIGN NEOPLAS 04/03/2017 GUILLE OLAMIDEA K Ot Z87.19 PERSONAL HISTORY OF OTHER DISEASES OF TH 04/03/2017 GUILLE OLAMIDEA K Ot Z90.49 ACQUIRED ABSENCE OF OTHER SPECIFIED PART 04/03/2017 GUILLE DO MARIE K Ot Z90.710 ACQUIRED ABSENCE OF BOTH CERVIX AND UTER 04/09/2017 GUILLE DO MARIE K Ot D64.9 ANEMIA, UNSPECIFIED 04/09/2017 GUILLE DO MARIE K Ot E11.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 04/09/2017 GUILLE DO MARIE K Ot E86.9 VOLUME DEPLETION, UNSPECIFIED 04/09/2017 GUILLE DO MARIE K Ot F41.9 ANXIETY DISORDER, UNSPECIFIED 04/09/2017 GUILLE DO MARIE K Ot G43.909 MIGRAINE, UNSP, NOT INTRACTABLE, WITHOUT 04/09/2017 GUILLE DO MARIE K Ot I10 ESSENTIAL (PRIMARY) HYPERTENSION 04/09/2017 GUILLE DO MARIE K Ot I48.91 UNSPECIFIED ATRIAL FIBRILLATION 04/09/2017 MARIE HAN DO Ot K21.9 GASTRO-ESOPHAGEAL REFLUX DISEASE WITHOUT 04/09/2017 MRAIE HAN DO Ot K59.00 CONSTIPATION, UNSPECIFIED 04/09/2017 GUILLE PLATT MARIE Velasquez Ot R42 DIZZINESS AND GIDDINESS 04/09/2017 GUILLE PLATT MARIE Velasquez Ot Z79.01 LINE APPLIANCE ASSEMBLER (CURRENT) USE OF 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 04/09/2017 GUILLE PLATT MARIE Velasquez Ot Z82.49 FAMILY HX OF ISCHEM HEART DIS AND OTH DI 04/09/2017 GUILLE PLATT MARIE Velasquez Ot Z86.018 PERSONAL HISTORY OF OTHER BENIGN NEOPLAS 04/09/2017 GUILLE PLATT MARIE Velasquez Ot Z87.19 PERSONAL HISTORY OF OTHER DISEASES OF TH 04/09/2017 GUILLE PLATT MARIE Velasquez Ot Z90.49 ACQUIRED ABSENCE OF OTHER SPECIFIED PART 04/09/2017 GUILLE PLATT MARIE Velasquez Ot Z90.710 ACQUIRED ABSENCE OF BOTH CERVIX AND UTER Procedures Code Description Performed By Performed On 45.16 ESOPHAGOGASTRODUODENOSCOPY [ EGD] W/CLOSE 11/20/2012 45.23 COLONOSCOPY 11/20/2012 82355 AMERITOX 05/29/2014 20570 SLEEP STUDY ([facility]- SLEEP STUDY) 06/22/2014 [id number] INSPECTION OF UPPER INTESTINAL TRACT, EN 11/05/2015 [id number] INSPECTION OF LOWER INTESTINAL TRACT, EN 11/05/2015 Results Test Result Range Complete blood count (CBC) with automated white blood cell (WBC) differential - 02/29/16 10:01 Blood leukocytes automated count (number/volume) 5.4 10*3/uL 4.3-11.0 Blood erythrocytes automated count (number/volume) 3.74 10*6/uL 4.35-5.85 Venous blood hemoglobin measurement (mass/volume) 9.5 [...] Automated blood platelet mean volume measurement 9.3 [foz_us] 7.4-10.4 Automated blood neutrophils/100 leukocytes 55 % [...] Serum or plasma sodium measurement (moles/volume) 140 mmol/L 135-145 Serum or plasma potassium measurement (moles/volume) 4.2 mmol/L 3.6-5.0 Serum or plasma chloride measurement (moles/volume) 108 mmol/L 98-107 Carbon dioxide 22 mmol/L 21-32 Serum or plasma anion gap determination (moles/volume) 10 mmol/L 5-14 Serum or plasma urea nitrogen measurement (mass/volume) 24 mg/dL 7-18 Serum or plasma creatinine measurement (mass/volume) 1.01 mg/dL 0.60-1.30 Serum or plasma urea nitrogen/creatinine mass [...] or plasma iron measurement (mass/volume) 21 % 35- 180 Total iron binding capacity and transferrin saturation measurement 5 % 15-50 Iron binding capacity [mass/volume] in serum or plasma 440 % 280-380 UIBC (unsaturated iron binding capacity) 419 % 55-450 Serum or plasma ferritin measurement (mass/volume) 10 % 15-150 Cyanocobalamin measurement - 02/29/16 10:01 Vitamin B12 360 pg/mL 200-1000 25-hydroxyvitamin D measurement - 02/29/16 10:01 25-hydroxy vitamin D measurement 19 % 30-100 Complete blood count (CBC) with automated white blood cell (WBC) differential - 12/07/16 21:06 Blood leukocytes automated count (number/volume) 9.6 10*3/uL 4.3-11.0 Blood erythrocytes automated count (number/volume) 3.71 10*6/uL 4.35-5.85 Venous blood hemoglobin measurement (mass/volume) 10.4 g/dL 11.5-16.0 Blood hematocrit (volume fraction) 33 % 35-52 Automated erythrocyte mean corpuscular volume 88 [foz_us] 80-99 Automated erythrocyte mean corpuscular hemoglobin (mass per erythrocyte) 28 pg 25-34 Automated erythrocyte mean corpuscular hemoglobin concentration measurement ( mass/volume) 32 g/dL 32-36 Automated erythrocyte distribution width ratio 15.3 % 10.0-14.5 Automated blood platelet count (count/volume) 318 10*3/uL 130-400 Automated blood platelet mean volume measurement 9.8 [foz_us] 7.4-10.4 Automated blood neutrophils/100 leukocytes 56 % 42-75 Automated blood lymphocytes/100 leukocytes 33 % 12-44 Blood monocytes/100 leukocytes 9 % 0-12 Automated blood eosinophils/100 leukocytes 2 % 0-10 Automated blood basophils/100 leukocytes 1 % 0-10 Blood neutrophils automated count (number/volume) 5.3 10*3 1.8-7.8 Blood lymphocytes automated count (number/volume) 3.1 10*3 1.0-4.0 Blood monocytes automated count (number/volume) 0.9 10*3 0.0-1.0 Automated eosinophil count 0.2 10*3/uL 0.0-0.3 Automated blood basophil count (count/volume) 0.1 10*3/uL 0.0-0.1 Comprehensive metabolic panel - 12/07/16 21:06 Carbon dioxide 20 mmol/L 21-32 Serum or plasma urea nitrogen measurement (mass/volume) 29 mg/dL 7-18 Serum or plasma creatinine measurement (mass/volume) 1.24 mg/dL 0.60-1.30 Serum or plasma urea nitrogen/creatinine mass ratio 23 NRG Serum or plasma creatinine measurement with calculation of estimated glomerular filtration rate 44 NRG Serum or plasma glucose measurement (mass/volume) 48 mg/dL 70-105 Serum or plasma calcium measurement (mass/volume) 9.9 mg/dL 8.5-10.1 Serum or plasma total bilirubin measurement (mass/volume) 0.3 mg/dL 0.1-1.0 Serum or plasma alkaline phosphatase measurement (enzymatic activity/volume) 89 U/L 40-136 Serum or plasma aspartate aminotransferase measurement (enzymatic activity/ volume) 19 U/L 5-34 Serum or plasma alanine aminotransferase measurement (enzymatic activity/volume ) 16 U/L 0-55 Serum or plasma protein measurement (mass/volume) 8.0 g/dL 6.4-8.2 Serum or plasma albumin measurement (mass/volume) 4.2 g/dL 3.2-4.5 Lipase - 12/07/16 21:06 Lipase 59 U/L 8-78 Complete urinalysis with reflex to culture - 12/07/16 21:46 Urine color determination YELLOW NRG Urine clarity determination CLEAR NRG Urine pH measurement by test strip 6 5-9 Specific gravity of urine by test strip 1.010 1.016- 1.022 Urine protein assay by test strip, semi-quantitative NEGATIVE NEGATIVE Urine glucose detection by automated test strip NEGATIVE NEGATIVE Erythrocytes detection in urine sediment by light microscopy NEGATIVE NEGATIVE Urine ketones detection by automated test strip NEGATIVE NEGATIVE Urine nitrite detection by test strip NEGATIVE NEGATIVE Urine total bilirubin detection by test strip NEGATIVE NEGATIVE Urine urobilinogen measurement by automated test strip (mass/volume) NORMAL NORMAL Urine leukocyte esterase detection by dipstick 1+ NEGATIVE Automated urine sediment erythrocyte count by microscopy (number/high power field) NONE NRG Automated urine sediment leukocyte count by microscopy (number/high power field ) NONE NRG Bacteria detection in urine sediment by light microscopy NONE NRG Squamous epithelial cells detection in urine sediment by light microscopy 0-2 NRG Crystals detection in urine sediment by light microscopy NONE NRG Casts detection in urine sediment by light microscopy NONE NRG Mucus detection in urine sediment by light microscopy NEGATIVE NRG Complete urinalysis with reflex to culture NO NRG Capillary blood glucose measurement by glucometer (mass/volume) - 12/07/16 22: 47 Capillary blood glucose measurement by glucometer (mass/volume) 83 mg/dL 70-110 Capillary blood glucose measurement by glucometer (mass/volume) - 12/07/16 23: 17 Capillary blood glucose measurement by glucometer (mass/volume) 89 mg/dL 70-110 Complete urinalysis with reflex to culture - 03/11/17 22:35 Urine color determination YELLOW NRG Urine clarity determination CLEAR NRG Urine pH measurement by test strip 6 5-9 Specific gravity of urine by test strip 1.015 1.016- 1.022 Urine protein assay by test strip, semi-quantitative NEGATIVE NEGATIVE Urine glucose detection by automated test strip NEGATIVE NEGATIVE Erythrocytes detection in urine sediment by light microscopy NEGATIVE NEGATIVE Urine ketones detection by automated test strip NEGATIVE NEGATIVE Urine nitrite detection by test strip NEGATIVE NEGATIVE Urine total bilirubin detection by test strip NEGATIVE NEGATIVE Urine urobilinogen measurement by automated test strip (mass/volume) NORMAL NORMAL Urine leukocyte esterase detection by dipstick 2+ NEGATIVE Automated urine sediment erythrocyte count by microscopy (number/high power field) NONE NRG Automated urine sediment leukocyte count by microscopy (number/high power field ) [HPF] NRG Bacteria detection in urine sediment by light microscopy TRACE NRG Squamous epithelial cells detection in urine sediment by light microscopy 5-10 NRG Crystals detection in urine sediment by light microscopy NONE NRG Casts detection in urine sediment by light microscopy NONE NRG Mucus detection in urine sediment by light microscopy NEGATIVE NRG Complete urinalysis with reflex to culture NO NRG Complete blood count (CBC) with automated white blood cell (WBC) differential - 03/12/17 12:10 Blood leukocytes automated count (number/volume) 5.9 10*3/uL 4.3-11.0 Blood erythrocytes automated count (number/volume) 3.03 10*6/uL 4.35-5.85 Venous blood hemoglobin measurement (mass/volume) 7.5 g/dL 11.5-16.0 Blood hematocrit (volume fraction) 25 % 35-52 Automated erythrocyte mean corpuscular volume 83 [foz_us] 80-99 Automated erythrocyte mean corpuscular hemoglobin (mass per erythrocyte) 25 pg 25-34 Automated erythrocyte mean corpuscular hemoglobin concentration measurement ( mass/volume) 30 g/dL 32-36 Automated erythrocyte distribution width ratio 16.8 % 10.0-14.5 Automated blood platelet count (count/volume) 326 10*3/uL 130-400 Automated blood platelet mean volume measurement 9.6 [foz_us] 7.4-10.4 Automated blood neutrophils/100 leukocytes 49 % 42-75 Automated blood lymphocytes/100 leukocytes 38 % 12-44 Blood monocytes/100 leukocytes 10 % 0-12 Automated blood eosinophils/100 leukocytes 2 % 0-10 Automated blood basophils/100 leukocytes 1 % 0-10 Blood neutrophils automated count (number/volume) 2.9 10*3 1.8-7.8 Blood lymphocytes automated count (number/volume) 2.3 10*3 1.0-4.0 Blood monocytes automated count (number/volume) 0.6 10*3 0.0-1.0 Automated eosinophil count 0.1 10*3/uL 0.0-0.3 Automated blood basophil count (count/volume) 0.1 10*3/uL 0.0-0.1 PT panel in platelet poor plasma by coagulation assay - 03/12/17 12:10 Prothrombin time (PT) in platelet poor plasma by coagulation assay 22.3 s 12.2-14.7 INR in platelet poor plasma or blood by coagulation assay 2.0 0.8-1.4 Activated partial thromboplastin time (aPTT) in platelet poor plasma bycoagulation assay - 03/12/17 12:10 Activated partial thromboplastin time (aPTT) in platelet poor plasma bycoagulation assay 34 s 24-35 Comprehensive metabolic panel - 03/12/17 12:10 Serum or plasma sodium measurement (moles/volume) 138 mmol/L 135-145 Serum or plasma potassium measurement (moles/volume) 4.6 mmol/L 3.6-5.0 Serum or plasma chloride measurement (moles/volume) 106 mmol/L 98-107 Carbon dioxide 24 mmol/L 21-32 Serum or plasma anion gap determination (moles/volume) 8 mmol/L 5-14 Serum or plasma urea nitrogen measurement (mass/volume) 29 mg/dL 7-18 Serum or plasma creatinine measurement (mass/volume) 1.15 mg/dL 0.60-1.30 Serum or plasma urea nitrogen/creatinine mass ratio 25 NRG Serum or plasma creatinine measurement with calculation of estimated glomerular filtration rate 47 NRG Serum or plasma glucose measurement (mass/volume) 95 mg/dL 70-105 Serum or plasma calcium measurement (mass/volume) 9.2 mg/dL 8.5-10.1 Serum or plasma total bilirubin measurement (mass/volume) 0.4 mg/dL 0.1-1.0 Serum or plasma alkaline phosphatase measurement (enzymatic activity/volume) 88 U/L 40-136 Serum or plasma aspartate aminotransferase measurement (enzymatic activity/ volume) 13 U/L 5-34 Serum or plasma alanine aminotransferase measurement (enzymatic activity/volume ) 12 U/L 0-55 Serum or plasma protein measurement (mass/volume) 6.9 g/dL 6.4-8.2 Serum or plasma albumin measurement (mass/volume) 3.7 g/dL 3.2-4.5 Magnesium - 03/12/17 12:10 Magnesium 1.9 mg/dL 1.8-2.4 Serum or plasma troponin i.cardiac measurement (mass/volume) - 03/12/17 12:10 Serum or plasma troponin i.cardiac measurement (mass/volume) < ng/ mL <0.30 Serum or plasma C reactive protein measurement (mass/volume) - 03/12/17 12:10 Serum or plasma C reactive protein measurement (mass/volume) 0.24 mg /dL 0.00-0.50 Automated reticulocyte percentage - 03/12/17 12:10 Blood erythrocytes automated count (number/volume) 3.07 10*6/uL 4.35-5.85 Blood reticulocytes count (number/volume) 43 10*9/L 24- 90 Blood reticulocytes/100 erythrocytes 1.40 % 0.50-2.40 Serum iron and total iron binding capacity panel - 03/12/17 12:10 Serum or plasma iron measurement (mass/volume) 25 % 35- 180 Total iron binding capacity and transferrin saturation measurement 6 % 15-50 Iron binding capacity [mass/volume] in serum or plasma 411 % 280-380 UIBC (unsaturated iron binding capacity) 386 % 55-450 Serum or plasma ferritin measurement (mass/volume) 6.0 % 15.0-150.0 RED CELLS LEUKO REDUCED AS1 - 03/12/17 13:08 RED CELLS LEUKO REDUCED AS1 TRANSFUSED 03/12/17 1615 NRG Blood type T Indirect antibody screen panel - 03/12/17 13:08 ABO+Rh group AP NRG Transfusion band number [id number] NRG Blood group antibody screen NEGATIVE NRG Urine drug screening test - 03/12/17 13:25 Urine phencyclidine detection by screening method NEGATIVE NEGATIVE Urine benzodiazepines detection by screening method NEGATIVE NEGATIVE Urine cocaine detection NEGATIVE NEGATIVE Urine amphetamines detection by screening method NEGATIVE NEGATIVE Urine methamphetamine detection by screening method NEGATIVE NEGATIVE Urine cannabinoids detection by screening method NEGATIVE NEGATIVE Urine opiates detection by screening method NEGATIVE NEGATIVE Urine barbiturates detection NEGATIVE NEGATIVE Screening urine tricyclic antidepressants detection NEGATIVE NEGATIVE Urine methadone detection by screening method NEGATIVE NEGATIVE Urine oxycodone detection NEGATIVE NEGATIVE Urine propoxyphene detection NEGATIVE NEGATIVE Complete urinalysis with reflex to culture - 03/12/17 13:25 Urine color determination YELLOW NRG Urine clarity determination CLEAR NRG Urine pH measurement by test strip 6 5-9 Specific gravity of urine by test strip 1.015 1.016- 1.022 Urine protein assay by test strip, semi-quantitative NEGATIVE NEGATIVE Urine glucose detection by automated test strip NEGATIVE NEGATIVE Erythrocytes detection in urine sediment by light microscopy NEGATIVE NEGATIVE Urine ketones detection by automated test strip NEGATIVE NEGATIVE Urine nitrite detection by test strip NEGATIVE NEGATIVE Urine total bilirubin detection by test strip NEGATIVE NEGATIVE Urine urobilinogen measurement by automated test strip (mass/volume) NORMAL NORMAL Urine leukocyte esterase detection by dipstick 3+ NEGATIVE Automated urine sediment erythrocyte count by microscopy (number/high power field) NONE NRG Automated urine sediment leukocyte count by microscopy (number/high power field ) [HPF] NRG Bacteria detection in urine sediment by light microscopy NEGATIVE NRG Squamous epithelial cells detection in urine sediment by light microscopy 5-10 NRG Crystals detection in urine sediment by light microscopy NONE NRG Casts detection in urine sediment by light microscopy NONE NRG Mucus detection in urine sediment by light microscopy NEGATIVE NRG Complete urinalysis with reflex to culture YES NRG Bacterial urine culture - 03/12/17 13:25 URINE CULTURE RESULTS 10,000/ML - 100,000/ML NRG Complete blood count (CBC) with automated white blood cell (WBC) differential - 03/31/17 19:30 Blood leukocytes automated count (number/volume) 7.3 10*3/uL 4.3-11.0 Blood erythrocytes automated count (number/volume) 4.00 10*6/uL 4.35-5.85 Venous blood hemoglobin measurement (mass/volume) 10.5 g/dL 11.5-16.0 Blood hematocrit (volume fraction) 34 % 35-52 Automated erythrocyte mean corpuscular volume 85 [foz_us] 80-99 Automated erythrocyte mean corpuscular hemoglobin (mass per erythrocyte) 26 pg 25-34 Automated erythrocyte mean corpuscular hemoglobin concentration measurement ( mass/volume) 31 g/dL 32-36 Automated erythrocyte distribution width ratio 18.7 % 10.0-14.5 Automated blood platelet count (count/volume) 322 10*3/uL 130-400 Automated blood platelet mean volume measurement 9.8 [foz_us] 7.4-10.4 Automated blood neutrophils/100 leukocytes 51 % 42-75 Automated blood lymphocytes/100 leukocytes 35 % 12-44 Blood monocytes/100 leukocytes 11 % 0-12 Automated blood eosinophils/100 leukocytes 2 % 0-10 Automated blood basophils/100 leukocytes 1 % 0-10 Blood neutrophils automated count (number/volume) 3.7 10*3 1.8-7.8 Blood lymphocytes automated count (number/volume) 2.6 10*3 1.0-4.0 Blood monocytes automated count (number/volume) 0.8 10*3 0.0-1.0 Automated eosinophil count 0.1 10*3/uL 0.0-0.3 Automated blood basophil count (count/volume) 0.1 10*3/uL 0.0-0.1 PT panel in platelet poor plasma by coagulation assay - 03/31/17 19:30 Prothrombin time (PT) in platelet poor plasma by coagulation assay 15.5 s 12.2-14.7 INR in platelet poor plasma or blood by coagulation assay 1.2 0.8-1.4 Activated partial thromboplastin time (aPTT) in platelet poor plasma bycoagulation assay - 03/31/17 19:30 Activated partial thromboplastin time (aPTT) in platelet poor plasma bycoagulation assay 32 s 24-35 Comprehensive metabolic panel - 03/31/17 19:30 Serum or plasma sodium measurement (moles/volume) 139 mmol/L 135-145 Serum or plasma potassium measurement (moles/volume) 5.0 mmol/L 3.6-5.0 Serum or plasma chloride measurement (moles/volume) 106 mmol/L 98-107 Carbon dioxide 27 mmol/L 21-32 Serum or plasma anion gap determination (moles/volume) 6 mmol/L 5-14 Serum or plasma urea nitrogen measurement (mass/volume) 22 mg/dL 7-18 Serum or plasma creatinine measurement (mass/volume) 1.04 mg/dL 0.60-1.30 Serum or plasma urea nitrogen/creatinine mass ratio 21 NRG Serum or plasma creatinine measurement with calculation of estimated glomerular filtration rate 53 NRG Serum or plasma glucose measurement (mass/volume) 91 mg/dL 70-105 Serum or plasma calcium measurement (mass/volume) 9.4 mg/dL 8.5-10.1 Serum or plasma total bilirubin measurement (mass/volume) 0.5 mg/dL 0.1-1.0 Serum or plasma alkaline phosphatase measurement (enzymatic activity/volume) 99 U/L 40-136 Serum or plasma aspartate aminotransferase measurement (enzymatic activity/ volume) 22 U/L 5-34 Serum or plasma alanine aminotransferase measurement (enzymatic activity/volume ) 23 U/L 0-55 Serum or plasma protein measurement (mass/volume) 7.9 g/dL 6.4-8.2 Serum or plasma albumin measurement (mass/volume) 3.9 g/dL 3.2-4.5 Magnesium - 03/31/17 19:30 Magnesium 2.0 mg/dL 1.8-2.4 Serum or plasma troponin i.cardiac measurement (mass/volume) - 03/31/17 19:30 Serum or plasma troponin i.cardiac measurement (mass/volume) < ng/ mL <0.30 Serum or plasma amylase measurement (enzymatic activity/volume) - 03/31/17 19: 30 Serum or plasma amylase measurement (enzymatic activity/volume) 54 U /L 25-125 Lipase - 03/31/17 19:30 Lipase 27 U/L 8-78 Serum or plasma thyrotropin measurement by detection limit <=0.05 miu/l (units/ volume) - 03/31/17 19:30 Serum or plasma thyrotropin measurement by detection limit <=0.05 miu/l (units/ volume) 3.10 u[iU]/mL 0.35-4.94 Encounters ACCT No. Visit Date/Time Discharge Status Pt. Type Provider Facility Loc./Unit Complaint [id number] 05/27/2014 14:11:00 05/27/2014 23:59:59 CLS Outpatient BOOKER CARMONA APRN [id number] 03/31/2017 19:11:00 03/31/2017 22:03:00 DIS Emergency GUILLE DO, MARIE K [facility] ER DIZZINESS [id number] 2017 11:34:00 2017 17:44:00 DIS Emergency EHATHER LUKE MD [facility] ER WEAKNESS/VISION DISTURBANCE [id number] 03/11/2017 22:30:00 03/11/2017 23:40:00 DIS Emergency BABAK PINEDO MD [facility] ER RT SIDED ABDOMINAL PAIN [id number] 12/07/2016 21:01:00 12/08/2016 00:15:00 DIS Emergency MARGO JOHNSON APRN [facility] ER STOMACH PAIN [id number] 09/12/2016 10:08:00 09/12/2016 23:59:59 CLS Outpatient DAMON CLAUDIO MD [facility] LAB CHEST PAIN,HTN,PAF,GI BLEED [id number] 02/29/2016 09:38:00 02/29/2016 23:59:59 CLS Outpatient CONOR PLATT ANTHONY S [facility] RAD DYSPHAGIA,WEAKNESS, FATIGUE,ANEMIA,EDEMA [id number] 01/05/2016 15:26:00 01/05/2016 23:59:59 CLS Outpatient CONOR PLATT ANTHONY S [facility] RAD SCREENING [id number] 12/25/2015 06:17:00 12/26/2015 13:30:00 DIS Inpatient CONOR BRAVO PLATTLINE S [facility] ICU CHEST PAIN [id number] 11/10/2015 07:03:00 11/10/2015 23:59:59 CLS Outpatient KIKO BRADEN, BEST Molina [facility] SDC GI BLEED,ANEMIA [id number] 11/04/2015 08:34:00 11/06/2015 14:30:00 DIS Inpatient ANTHONY PERDOMO DO S [facility] 4TH ANEMIA [id number] 07/29/2015 05:35:00 07/29/2015 23:59:59 CLS Outpatient KIKO BRADEN, BEST Molina [facility] PREOP COLONOSCOPY [id number] 05/09/2015 22:36:00 05/10/2015 00:45:00 DIS Emergency KHRIS BRADEN, BABAK Taylor [facility] ER SOA [id number] 11/13/2014 09:55:00 11/13/2014 12:10:00 DIS Emergency MARGO JOHNSON SAFETY OFFICER [facility] ER FALL/LEFT KNEE INJ [id number] 06/24/2014 14:51:00 06/24/2014 23:59:59 CLS Outpatient GONZÁLEZ BRADEN, DAMON Gunn [facility] RAD CAROTID BRUIT, CP,HTN, PAF [id number] 05/18/2014 03:30:00 05/18/2014 12:00:00 DIS Inpatient DIMITRIOS BRADEN, LARRY French [facility] CSD CHEST PAIN [id number] 04/21/2014 21:20:00 04/22/2014 19:25:00 DIS Inpatient ANTHONY PERDOMO DO S [facility] ICU A FIB WITH RVR [id number] 09/18/2013 12:50:00 09/18/2013 23:59:59 CLS Outpatient BRAVO PERDOMO DOLINE S [facility] RAD CEPHALGIA, DIZZINESS [id number] 09/02/2013 13:23:00 09/02/2013 23:59:59 CLS Outpatient CONOR DO, ANTHONY S [facility] RAD CEPHALGIA, DIZZINESS [id number] 12/07/2012 06:17:00 12/07/2012 09:07:00 DIS Emergency GUILLE PLATT MARIE Velasquez [facility] ER SOA;ABD PAIN [id number] 11/22/2012 18:28:00 11/22/2012 23:59:59 CLS Outpatient [id number] 11/19/2012 18:41:00 11/21/2012 17:00:00 DIS Inpatient EDVINFELICIANOYONNY BRAVO PLATTLINE S [facility] 4TH GI BLEED [id number] 11/09/2012 14:58:00 11/10/2012 14:11:00 DIS Inpatient ALDAIR BRADEN, BRENDAN R [facility] 4TH BLURRED VISION NAUSEA DIZZY [id number] 10/24/2012 14:32:00 10/24/2012 16:22:00 DIS Emergency KHRIS BRADEN, BABAK Taylor [facility] ER FALL/FACIAL INJURY [id number] 10/18/2012 20:15:00 10/19/2012 12:30:00 DIS Inpatient CONOR PLATTBRAVOANTHONY S [facility] ICU A FIB; RVR [id number] 06/24/2014 15:32:00 Document Registration [id number] 06/24/2014 15:31:00 Document Registration [id number] 06/24/2014 15:31:00 Document Registration [id number] 09/29/2012 03:08:00 Document Registration [id number] 09/16/2012 11:30:00 Document Registration [id number] 07/11/2012 07:13:00 Document Registration [id number] 06/13/2012 22:45:00 Document Registration [id number] 01/02/2012 01:06:00 Document Registration [id number] 03/14/2011 09:46:00 Document Registration [id number] 01/23/2011 00:30:00 Document Registration [id number] 02/03/2010 09:59:00 Document Registration [id number] 11/30/2009 11:00:00 Document Registration [id number] 11/25/2009 13:10:00 Document Registration [id number] 10/21/2009 14:31:00 Document Registration [id number] 09/30/2009 08:17:00 Document Registration [id number] 09/28/2009 09:40:00 Document Registration [id number] 04/09/2009 00:08:00 Document Registration
[2017-07-02] MEDS ORDERED: DILTIAZEM 125 MG/25 ML IV (CARDIZEM) IV ONE ×2 (15:29→15:30)
[2017-07-02] MEDS ORDERED: DILTIAZEM 25 MG/5 ML INJ (CARDIZEM) VIAL ONE ×2 (15:29→15:30)
[2017-07-02 15:37] LABS: BASOPHILS % (AUTO) 0 % (0-10); EOSINOPHILS # (AUTO) 0.1 10^3/uL (0.0-0.3); EOSINOPHILS % (AUTO) 1 % (0-10); HEMATOCRIT 33 % (35-52); HEMOGLOBIN 10.7 G/DL (11.5-16.0); LYMPHOCYTES # (AUTO) 3.4 X 10^3 (1.0-4.0); LYMPHOCYTES % (AUTO) 45 % (12-44); MEAN CORPUSCULAR HEMOGLOBIN 27 PG (25-34); MEAN CORPUSCULAR HGB CONC 32 G/DL (32-36); MEAN CORPUSCULAR VOLUME 83 FL (80-99); MEAN PLATELET VOLUME 9.8 FL (7.4-10.4); MONOCYTES # (AUTO) 0.8 X 10^3 (0.0-1.0); MONOCYTES % (AUTO) 10 % (0-12); NEUTROPHILS # (AUTO) 3.2 X 10^3 (1.8-7.8); NEUTROPHILS % (AUTO) 43 % (42-75); PLATELET COUNT 346 10^3/uL (130-400); RED BLOOD COUNT 3.98 10^6/uL (4.35-5.85); RED CELL DISTRIBUTION WIDTH 16.6 % (10.0-14.5); WHITE BLOOD COUNT 7.4 10^3/uL (4.3-11.0)
[2017-07-02 15:41] LABS: PROTHROMBIN TIME PATIENT 13.7 SEC (12.2-14.7)
[2017-07-02] MEDS ORDERED: NS IV 1000 ML 1,000 ML IV SCH (15:45)
[2017-07-02] MEDS ORDERED: DILTIAZEM IV FOR DRIP 125 MG in D5W 100 ML IVPB 100 ML IV SCH (15:45)
[2017-07-02] MEDS ORDERED: DILTIAZEM 25 MG/5 ML INJ (CARDIZEM) VIAL IVP ONE (15:45)
[2017-07-02] MEDS ORDERED: DILTIAZEM DRIP 125 MG/D5W 100 ML TOTAL VOLUME 125 ML IV ONE ×2 (15:45)
[2017-07-02 15:49] LABS: ALANINE AMINOTRANSFERASE 17 U/L (0-55); ALBUMIN 4.4 GM/DL (3.2-4.5); ALKALINE PHOSPHATASE 103 U/L (40-136); BILIRUBIN,TOTAL 0.5 MG/DL (0.1-1.0); BUN/CREATININE RATIO 27; CALCIUM 9.9 MG/DL (8.5-10.1); CARBON DIOXIDE 21 MMOL/L (21-32); CHLORIDE 105 MMOL/L (98-107); CREATININE SERUM 1.15 MG/DL (0.60-1.30); GFR ESTIMATED 47; GLUCOSE 116 MG/DL (70-105); POTASSIUM 3.5 MMOL/L (3.6-5.0); SODIUM 140 MMOL/L (135-145); TOTAL PROTEIN 8.7 GM/DL (6.4-8.2)
[2017-07-02 15:56] LABS: MYOGLOBIN SERUM 80.2 NG/ML (10.0-92.0)
--- NOTE | 2017-07-02 16:09 | Diagnostic Imaging Report ---
INDICATION: Episode of atrial fibrillation. COMPARISON: 03/12/2017 FINDINGS: Single frontal view of the chest demonstrates normal heart size and pulmonary vascularity. The lungs are well aerated and clear. No large pleural effusion or pneumothorax is seen. The visualized osseous structures show no acute abnormalities. IMPRESSION: 1. No acute cardiopulmonary process. Dictated by: Dictated on workstation # [id number]
[2017-07-02] MEDS ORDERED: DILTIAZEM 60 MG (CARDIZEM) TAB PO STA (16:30)
--- NOTE | 2017-07-02 16:52 | ED Cardiac General ---
History of Present Illness General Chief Complaint: Cardiac/General Problems Stated Complaint: A-FIB EPISODE Nursing Triage Note: PT REPORTS CHEST TIGHTNESS X 1 WEEK. PT REPORTS HEART FELT LIKE IT WAS RACING EVERYTIME SHE HAD A COUGHING SPELL. PT REPORTS SHE FELT HER HR BECAME REAL IRREGULAR AROUND 1440. Source: patient, family Exam Limitations: no limitations History of Present Illness Date Seen by Provider: Jul 02, 2017 Time Seen by Provider: 16:47 Initial Comments This 67-year-old white female presents with tachycardia and chest tightness. The episode occurred approximately 30 minutes prior to presentation emergency department. The patient has a history of atrial fibrillation with RVR. Patient's had similar episodes in the past for which she takes Cardizem at home. Patient is under the care of Dr. Mcfarland. Allergies and Home Medications Allergies Coded Allergies: Beta-Blockers (Beta-Adrenergic Bloc (Unverified Allergy, Unknown, 11/20/12) atenolol (Verified Allergy, Unknown, 04/05/07) Home Medications Diltiazem HCl 180 Mg Cap.er.24h, 180 MG PO HS, (Reported) Nitrofurantoin Monohyd/M-Cryst 100 Mg Capsule, 1 TAB PO BID for 7 Days Prescribed by: QASIM CASTILLO on 12/26/15 1209 Pantoprazole Sodium 40 Mg Granpkt.dr, 40 MG PO DAILY, (Reported) Propafenone HCl 225 Mg Cap, 225 MG PO TID, (Reported) Rivaroxaban 20 Mg Tablet, 20 MG PO HS, (Reported) Sennosides/Docusate Sodium 1 Each Tablet, 1 EA PO BID, #30 Prescribed by: ANTHONY PERDOMO on 12/26/15 0950 Review of Systems Constitutional: No chills, No fever EENTM: No Blurred Vision Respiratory: Denies Cough Cardiovascular: See HPI, Chest Pain, Irregular Heart Rate, Palpitations Gastrointestinal: Denies Abdominal Pain Genitourinary: No Symptoms Reported Musculoskeletal: No back pain Skin: No rash Psychiatric/Neurological: No Symptoms Reported Endocrine: No Symptoms Reported Hematologic/Lymphatic: No Symptoms Reported Past Bcvgvnw-Xwsatw-Flhknd Hx Patient Social History Alcohol Use: Denies Use Recreational Drug Use: No 2nd Hand Smoke Exposure: No Recent Foreign Travel: No Contact w/Someone Who Travel: No Recent Infectious Disease Expo: No Recent Hopitalizations: No Physical Abuse: No Sexual Abuse: No Mistreated: No Fear: No Immunizations Up To Date Tetanus Booster (TDap): Unknown PED Vaccines UTD: No Date of Pneumonia Vaccine: Mar 11, 2011 Date of Influenza Vaccine: May 04, 2014 Seasonal Allergies Seasonal Allergies: Yes Surgeries History of Surgeries: Yes (HIATAL HERNIA, 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) Surgeries: Abdominal, Appendectomy, Section, Gallbladder, 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 , Neurological, Oophorectomy Respiratory History of Respiratory Disorde: No Currently Using CPAP: No Currently Using BIPAP: No Cardiovascular History of Cardiac Disorders: Yes (RBBB) Cardiac Disorders: Atrial Fibrillation, Heart Murmur, Hypertension, Valvular Heart Disease Neurological History of Neurological Disord: Yes Neurological Disorders: Headaches /Migraines, Neuropathy 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 System Hx 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 Disorders: Yes (CERVICAL DYSPLASIA) Sexually Transmitted Disease: No HIV/AIDS: No Female 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 Disorders: 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, 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 Genitourinary History of Genitourinary Disor: Yes (RENAL INSUFFICIENCY) Genitourinary Disorders: Kidney Infection, Bladder Infection, Renal Failure Gastrointestinal History of Gastrointestinal Di: Yes Gastrointestinal Disorders: Gastroesophageal Reflux, Gastrointestinal Bleed, Chronic Constipation, Hiatal Hernia, Gall Bladder Disease Musculoskeletal History of Musculoskeletal Dis: Yes (KNEES, BACK, HIPS) Musculoskeletal Disorders: Arthritis, Chronic Back Pain Endocrine History of Endocrine Disorders: Yes (Pre Diabetic) Endocrine Disorders: Diabetes, Non-Insulin dep HEENT History of HEENT Disorders: No Loss of Vision: Denies Hearing Impairment: Denies Cancer History of Cancer: Yes Cancer: Bone Did You Recieve Any Treatments: Yes Type of Tx Receive: Chemotherapy, Radiation, Surgical Intervention Psychosocial History of Psychiatric Problem: Yes Behavioral Health Disorders: Anxiety Suicide Risk Score: 0 Integumentary History of Skin or Integumenta: No Blood Transfusions History of Blood Disorders: Yes (ANEMIA) Adverse Reaction to a Blood Tr: No Reviewed Nursing Assessment Reviewed/Agree w Nursing PMH: Yes Family Medical History Significant Family History: Heart Disease Family Medial History: Arthritis 19 MOTHER, Onset:30's - 40 (RA) Cardiovascular disease 19 MOTHER, Onset:40's - 50 Completed stroke 19 MOTHER, Onset:60 years & older Headache disorder 19 FATHER, Onset:Unknown (severe sinus headaches) Hypertension 19 MOTHER, Onset:50's - 60 Myocardial infarction 19 MOTHER, Onset:60 years & older Psychosocial problem 19 FATHER, Onset:Unknown No Family History of: AIDS Abdominal aortic aneurysm Sundeep's disease Alcoholism Alzheimer's disease Aphasia Asthma Cancer of mouth Cataracts Colon cancer Congenital disease Congenital heart disease Coronary thrombosis Cystic fibrosis Deafness or hearing loss Dementia Diabetes mellitus Drug abuse Dysphasia Fibrocystic disease of breast Gastroenteritis Glaucoma Hypercholesterolemia Infertility Kidney disease Neoplasm Not obtainable due to adoption Osteoporosis Parkinson's disease Prostate cancer Respiratory disorder Seizure disorder Severe allergy Thyroid disease Tuberculosis Visual disorder Physical Exam Vital Signs Vital Sign - Last 12Hours 07/02/17 07/02/17 15:24 15:38 Temp 97.5 Pulse 134 Resp 20 B/P (MAP) 136/60 (85) Pulse Ox 100 O2 Delivery Nasal Cannula O2 Flow Rate 2.00 Capillary Refill : Less Than 3 Seconds General Appearance: WD/WN, Mild Distress HEENT: Normal ENT Inspection Neck: Normal Inspection Respiratory: Lungs Clear Cardiovascular: Irregularly Irregular, Tachycardia Gastrointestinal: Normal Bowel Sounds Extremity: Normal Inspection Neurologic/Psychiatric: Oriented x3, No Motor/Sensory Deficits, Normal Mood/ Affect Skin: Normal Color, Warm/Dry Progress/Results/Core Measures Results/Orders Lab Results Laboratory Tests Test 07/02/17 15:20 Range/Units White Blood Count 7.4 4.3-11.0 10^3/uL Red Blood Count 3.98 L 4.35-5.85 10^6/uL Hemoglobin 10.7 L 11.5-16.0 G/DL Hematocrit 33 L 35-52 % Mean Corpuscular Volume 83 80-99 FL Mean Corpuscular Hemoglobin 27 25-34 PG Mean Corpuscular Hemoglobin Concent 32 32-36 G/DL Red Cell Distribution Width 16.6 H 10.0-14.5 % Platelet Count 346 130-400 10^3/uL Mean Platelet Volume 9.8 7.4-10.4 FL Neutrophils (%) (Auto) 43 42-75 % Lymphocytes (%) (Auto) 45 H 12-44 % Monocytes (%) (Auto) 10 0-12 % Eosinophils (%) (Auto) 1 0-10 % Basophils (%) (Auto) 0 0-10 % Neutrophils # (Auto) 3.2 1.8-7.8 X 10^3 Lymphocytes # (Auto) 3.4 1.0-4.0 X 10^3 Monocytes # (Auto) 0.8 0.0-1.0 X 10^3 Eosinophils # (Auto) 0.1 0.0-0.3 10^3/uL Basophils # (Auto) 0.0 0.0-0.1 10^3/uL Prothrombin Time 13.7 12.2-14.7 SEC INR Comment 1.0 0.8-1.4 Activated Partial Thromboplast Time 30 24-35 SEC Sodium Level 140 135-145 MMOL/L Potassium Level 3.5 L 3.6-5.0 MMOL/L Chloride Level 105 98-107 MMOL/L Carbon Dioxide Level 21 21-32 MMOL/L Anion Gap 14 5-14 MMOL/L Blood Urea Nitrogen 31 H 7-18 MG/DL Creatinine 1.15 0.60-1.30 MG/DL Estimat Glomerular Filtration Rate 47 BUN/Creatinine Ratio 27 Glucose Level 116 H 70-105 MG/DL Calcium Level 9.9 8.5-10.1 MG/DL Magnesium Level 2.0 1.8-2.4 MG/DL Total Bilirubin 0.5 0.1-1.0 MG/DL Aspartate Amino Transf (AST/SGOT) 17 5-34 U/L Alanine Aminotransferase (ALT/SGPT) 17 0-55 U/L Alkaline Phosphatase 103 40-136 U/L Myoglobin 80.2 10.0-92.0 NG/ML Troponin I < 0.30 <0.30 NG/ML Total Protein 8.7 H 6.4-8.2 GM/DL Albumin 4.4 3.2-4.5 GM/DL My Orders Orders - JH LAGOS MD Diltiazem Injection (Cardizem Injection) (07/02/17 15:29) Diltiazem Iv For Drip (Cardizem Iv For D (07/02/17 15:29) Cbc With Automated Diff (07/02/17 15:31) Magnesium (07/02/17 15:31) Chest 1 View, Ap/Pa Only (07/02/17 15:31) Ekg Tracing (07/02/17 15:31) Cardiac Profile 1 (07/02/17 15:31) Comprehensive Metabolic Panel (07/02/17 15:31) Myoglobin Serum (07/02/17 15:31) Protime With Inr (07/02/17 15:31) Partial Thromboplastin Time (07/02/17 15:31) O2 (07/02/17 15:31) Monitor-Rhythm Ecg Trace Only (07/02/17 15:31) Lipid Panel (07/03/17 06:00) Saline Lock/Iv-Start (07/02/17 15:31) Diltiazem Injection (Cardizem Injection) (07/02/17 15:30) Ns Iv 1000 Ml (Sodium Chloride 0.9%) (07/02/17 15:45) Diltiazem Injection (Cardizem Injection) (07/02/17 15:45) D5w 100 Ml Ivpb (De... W/Diltiazem Iv Fo (07/02/17 15:45) Diltiazem Iv For Drip (Cardizem Iv For D (07/02/17 15:30) D5w 100 Ml Ivpb (De... W/Diltiazem Iv Fo (07/02/17 15:45) Diltiazem Tablet (Cardizem Tablet) (07/02/17 16:30) Medications Given in ED Current Medications Medications Dose Ordered Sig/Larry Route Start Time Stop Time Status Last Admin Dose Admin Diltiazem HCl 10 mg ONCE ONCE IVP 07/02/17 15:45 07/02/17 15:46 DC 07/02/17 16:03 10 MG Diltiazem HCl 125 mg/Dextrose 125 ml @ 5 mls/hr Q24H ONCE IV 07/02/17 15:45 07/03/17 15:44 07/02/17 16:04 5 MLS/HR Vital Signs/I&O Vital Sign - Last 12Hours 07/02/17 07/02/17 07/02/17 15:24 15:38 16:04 Temp 97.5 97.8 Pulse 134 84 Resp 20 20 B/P (MAP) 136/60 (85) 126/66 Pulse Ox 100 100 100 O2 Delivery Nasal Cannula Nasal Cannula Nasal Cannula O2 Flow Rate 2.00 2.00 Blood Pressure Mean: 86 Progress Note : Time: 16:50 Progress Note The patient demonstrated A. fib with RVR with rate of approximately 160. Patient responded to a bolus of 10 mg of Cardizem and a 5 mg per hour drip. She returned to a normal sinus rhythm. Her symptoms abated. Telephone consultation was undertaken with . Patient received 180 mg of Cardizem by mouth. The patient was discharged with instructions to follow up closely with Dr. Mcfarland and return if any further problems or questions. Departure Impression Impression: Primary Impression: Atrial fibrillation Qualified Codes: I48.0 - Paroxysmal atrial fibrillation Additional Impression: Atrial fibrillation with RVR Disposition: HOME, SELF-CARE Condition: Improved Departure-Patient Inst. Decision time for Depature: 16:53 Referrals: DAMON MCFARLAND MD, JACQUELINE S DO (PCP/Family) Primary Care Physician Patient Instructions: Atrial Fibrillation (DC) Add. Discharge Instructions: Continue the Cardizem as prescribed. Close follow-up with Dr. Mcfarland. Return if any problems or questions. All discharge instructions reviewed with patient and/or family. Voiced understanding. JH LAGOS MD Jul 02, 2017 16:52
[2017-07-02 17:30] VITALS: BP 137/63
== END 2017-07-02 17:30 | disposition home or self-care (01) ==
LOC: EDUNIT# 15:10 → ER 15:11
DX: I48.0 Paroxysmal atrial fibrillation (principal); D64.9 Anemia, unspecified; F41.9 Anxiety disorder, unspecified; E11.40 Type 2 diabetes mellitus with diabetic neuropathy, unspecified; K21.9 Gastro-esophageal reflux disease without esophagitis; Z85.89 Personal history of malignant neoplasm of other organs and systems; Z87.19 Personal history of other diseases of the digestive system; Z87.440 Personal history of urinary (tract) infections; Z87.59 Personal history of other complications of pregnancy, childbirth and the puerperium; Z90.49 Acquired absence of other specified parts of digestive tract; Z90.710 Acquired absence of both cervix and uterus; Z92.21 Personal history of antineoplastic chemotherapy; Z92.3 Personal history of irradiation; Z82.49 Family history of ischemic heart disease and other diseases of the circulatory system
CPT/HCPCS: 36415; 71045; 80053; 83735; 83874; 84484; 85025; 85610; 85730; 93005; 93041; 96361; 96374

== ENCOUNTER → 2017-08-06 | Outpatient (CLI) | payer MEDICARE | LOC: CARD 11:50 | PROVIDERS: ATTEND Internal Medicine Cardiovascular Disease | DX: R07.89 Other chest pain (principal); I48.0 Paroxysmal atrial fibrillation; R00.2 Palpitations; N28.9 Disorder of kidney and ureter, unspecified; K92.2 Gastrointestinal hemorrhage, unspecified | CPT/HCPCS: 93306 ==

== ENCOUNTER 2017-09-03 10:11 | Observation (INO) | payer MEDICARE ==
[2017-09-03] VITALS (10 sets, daily range): BP systolic 115–181; BP diastolic 65–87
[~2017-09-03] VITALS: Ht 167.6 cm; Wt 87.5 kg
--- OUTSIDE RECORDS SUMMARY | 2017-09-03 10:19 | XMS REPORT | Continuity of Care Document ---
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 Team Providers Care Aerobics Instructor Name Role Phone [employer] Unavailable Unavailable Problems Medications Allergies, Adverse Reactions, Alerts Immunizations Results Vital Signs Encounters Location Location Details Encounter Type Encounter Number Reason For Visit Attending Provider ADM Date DC Date Status Source O [id number] BENTLEY CHEATHAM 04/11/2011 04/11/2011 Active [facility] OUTPATIENT [id number] ENEIDA METZGER 04/12/20172016 Active [facility] O CARLTON RIVAS 08/16/2017 Active [facility] Procedures Plan of Care Social History Assessment and Plan Family History Advance Directives Functional Status
--- OUTSIDE RECORDS SUMMARY | 2017-09-03 10:20 | XMS REPORT | Clinical Summary ---
Author Author [facility] Organization [facility] Address Unknown Phone Unavailable Care Team Providers Care Internal Audit Senior Manager Name Role Phone Amanda Ruffin MD Unavailable Bean Carrera MD Unavailable Anselmo Alex APRN Unavailable Unavailable Joyce Sahu MD PCP Matt York MD Unavailable Source Comments Some departments are not documenting in the electronic medical record. If you do not see the information that you expected, contact Release of Information in the Health Information Management department at [phone] for further assistance in locating additional records.[facility] Allergies Active Allergy Reactions Severity Noted [...] PHYSICAL (COMPREHENSIVE) 1959 EXAM PERTUSSIS VACCINE 1963 HIV SCREENING 1967 TETANUS VACCINE 1969 BREAST CANCER SCREENING 1992 COLORECTAL CANCER 2002 SCREENING SHINGLES VACCINE 2012 OSTEOPOROSIS SCREENING 2017 PREVNAR/PNEUMOVAX (#1) 2017 INFLUENZA VACCINE 03/11/2018 Results Not on filefrom Last 3 Months
--- NOTE | 2017-09-03 10:40 | ED General ---
General Chief Complaint: Cardiac/General Problems Stated Complaint: SOB/DIZZINESS Source of Information: Patient, Old Records History of Present Illness Date Seen by Provider: Sep 03, 2017 Time Seen by Provider: 10:30 Initial Comments PT ARRIVES VIA POV FROM HOME MULTITUDE OF COMPLAINTS PT STATES SHE "KEPT JERKING AWAKE BECAUSE I COULDN'T BREATHE" SO SHE HAD TO SIT UPRIGHT TO SLEEP STATES "THEN I STARTED HAVING A FIB THING-IES" "THEN I GOT TINGLY ALL OVER" "THEN I GOT REALLY SHAKEY AND I CAN'T WALK VERY FAR" "MY VISION WENT AWAY FOR A LITTLE BIT" C/O HEAD HURTING "LIKE A BAND AROUND THE TOP OF MY HEAD" "FEELS LIKE A TIGHT CAP " FIRST DENIES CHEST PAIN, THEN LATER STATES "OH, RIGHT IN HERE IN THE MIDDLE ( POINTS TO MID STERNUM) WHEN I TAKE A DEEP BREATH IT FEELS LIKE SOMEBODY'S SQUEEZING" STATES "MY BACK -MY RIBS IN THE BACK-I HAVE DEGENERATIVE DISCS AND THEY HAVE BEEN HURTING/I HAVE PAIN IN MY DISCS WHEN I TAKE DEEP BREATHS" STATES SHE HAS HAD A NON-PRODUCTIVE COUGH "OFF AND ON FOR A WHILE-DOWN IN HERE ( POINTS TO CHEST ) AND I ALWAYS FEEL LIKE IN CAN'T COUGH UP PHLEGM" PT HAS HISTORY OF ATRIAL FIBRILLATION AND IN ON XARELTO. IS IS ALSO ON PROPENAPHONE, BUT HAS BEEN OUT OF IT SINCE SUNDAY. PT ALSO HAS HISTORY OF ANEMIA PCP: DR. 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 CLAUDIO Allergies and Home Medications Allergies Coded Allergies: Beta-Blockers (Beta-Adrenergic Bloc (Unverified Allergy, Unknown, 11/20/12) atenolol (Verified Allergy, Unknown, 04/05/07) Home Medications Acetaminophen 500 Mg Tablet, 1,000 MG PO TID, (Reported) TAKES 2 (500MG) TABLETS Cholecalciferol (Vitamin D3) 1,000 Unit Capsule, 1,000 UNIT PO DAILY, (Reported) Cyanocobalamin (Vitamin B-12) 1,000 Mcg Tablet, 1,000 MCG PO DAILY, (Reported) Diltiazem HCl 180 Mg Cap.er.24h, 180 MG PO HS, (Reported) Fluticasone Propionate 16 Gm Ben Bolt.susp, 2 SPRAYS NS DAILY PRN for ALLERGIES, ( Reported) Lignum 3 Polyunsat Fatty Acids 1,000 Mg Cap, 1,000 MG PO HS, (Reported) Pantoprazole Sodium 40 Mg Tablet.dr, 40 MG PO DAILY, (Reported) Propafenone HCl 225 Mg Cap, 225 MG PO TID, (Reported) Rivaroxaban 20 Mg Tablet, 20 MG PO HS, (Reported) Sennosides/Docusate Sodium 1 Each Tablet, 1 TAB PO BID, (Reported) Patient Home Medication List Home Medication List Reviewed: Yes Constitutional: see HPI, No chills, No diaphoresis, dizziness, No fever, weakness EENTM: no symptoms reported Respiratory: see HPI, cough, dyspnea on exertion, orthopnea, short of breath, No wheezing Cardiovascular: chest pain, No edema, palpitations, No syncope, other (? NEAR- SYNCOPE? ) Gastrointestinal: no symptoms reported, No abdominal pain, No nausea, No vomiting Genitourinary: no symptoms reported Musculoskeletal: see HPI, back pain Skin: no symptoms reported Psychiatric/Neurological: See HPI, Headache, Denies Numbness, Denies Paresthesia, Denies Seizure Hematologic/Lymphatic: See HPI, Anemia Immunological/Allergic: no symptoms reported Past Rfdyolo-Zsygkm-Hblzhu Hx Patient Social History Alcohol Use: Rarely Uses Recreational Drug Use: No Smoking Status: Never a Smoker 2nd Hand Smoke Exposure: No Recent Foreign Travel: No Contact w/Someone Who Travel: No Recent Hopitalizations: No Immunizations Up To Date Tetanus Booster (TDap): Unknown PED Vaccines UTD: No Date of Pneumonia Vaccine: Mar 11, 2011 Date of Influenza Vaccine: May 04, 2014 Seasonal Allergies Seasonal Allergies: Yes Surgeries History of Surgeries: Yes (HIATAL HERNIA, 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) Surgeries: Abdominal, Appendectomy, Section, Gallbladder, 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 , Neurological, Oophorectomy Respiratory History of Respiratory Disorde: No Currently Using CPAP: No Currently Using BIPAP: No Cardiovascular History of Cardiac Disorders: Yes (RBBB) Cardiac Disorders: Atrial Fibrillation, Heart Murmur, Hypertension, Valvular Heart Disease Neurological History of Neurological Disord: Yes Neurological Disorders: Headaches /Migraines, Neuropathy 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 System Hx 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 Disorders: Yes (CERVICAL DYSPLASIA) Sexually Transmitted Disease: No HIV/AIDS: No Female 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, 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 Genitourinary History of Genitourinary Disor: Yes (RENAL INSUFFICIENCY) Genitourinary Disorders: Kidney Infection, Bladder Infection, Renal Failure Gastrointestinal History of Gastrointestinal Di: Yes Gastrointestinal Disorders: Gastroesophageal Reflux, Gastrointestinal Bleed, Chronic Constipation, Hiatal Hernia, Gall Bladder Disease Musculoskeletal History of Musculoskeletal Dis: Yes (KNEES, BACK, HIPS) Musculoskeletal Disorders: Arthritis, Chronic Back Pain Endocrine History of Endocrine Disorders: Yes (Pre Diabetic) Endocrine Disorders: Diabetes, Non-Insulin dep HEENT History of HEENT Disorders: No Loss of Vision: Denies Hearing Impairment: Denies Cancer History of Cancer: Yes Cancer: Bone Did You Recieve Any Treatments: Yes Type of Tx Receive: Chemotherapy, Radiation, Surgical Intervention Psychosocial History of Psychiatric Problem: Yes Behavioral Health Disorders: Anxiety Integumentary History of Skin or Integumenta: No Blood Transfusions History of Blood Disorders: Yes (ANEMIA) Adverse Reaction to a Blood Tr: No Family Medical History Significant Family History: Heart Disease Family Medial History: Arthritis 19 MOTHER, Onset:30's - 40 (RA) Cardiovascular disease 19 MOTHER, Onset:40's - 50 Completed stroke 19 MOTHER, Onset:60 years & older Headache disorder 19 FATHER, Onset:Unknown (severe sinus headaches) Hypertension 19 MOTHER, Onset:50's - 60 Myocardial infarction 19 MOTHER, Onset:60 years & older Psychosocial problem 19 FATHER, Onset:Unknown No Family History of: AIDS Abdominal aortic aneurysm Sundeep's disease Alcoholism Alzheimer's disease Aphasia Asthma Cancer of mouth Cataracts Colon cancer Congenital disease Congenital heart disease Coronary thrombosis Cystic fibrosis Deafness or hearing loss Dementia Diabetes mellitus Drug abuse Dysphasia Fibrocystic disease of breast Gastroenteritis Glaucoma Hypercholesterolemia Infertility Kidney disease Neoplasm Not obtainable due to adoption Osteoporosis Parkinson's disease Prostate cancer Respiratory disorder Seizure disorder Severe allergy Thyroid disease Tuberculosis Visual disorder Physical Exam Vital Signs Vital Signs - First Documented 09/03/17 10:20 Temp 98.0 Pulse 79 Resp 22 B/P (MAP) 160/70 (100) Pulse Ox 100 O2 Delivery Room Air Capillary Refill : Progress/Results/Core Measures Suspected Sepsis SIRS Temperature: Pulse: Respiratory Rate: Laboratory Tests 09/03/17 11:00: White Blood Count 5.2 Blood Pressure / Mean: Laboratory Tests 09/03/17 11:00: Creatinine 1.00, INR Comment 2.2H, Platelet Count 347, Total Bilirubin 0.5 Results/Orders Lab Results Laboratory Tests Test 09/03/17 11:00 Range/Units White Blood Count 5.2 4.3-11.0 10^3/uL Red Blood Count 3.00 L 4.35-5.85 10^6/uL Hemoglobin 7.0 L 11.5-16.0 G/DL Hematocrit 24 L 35-52 % Mean Corpuscular Volume 80 80-99 FL Mean Corpuscular Hemoglobin 23 L 25-34 PG Mean Corpuscular Hemoglobin Concent 29 L 32-36 G/DL Red Cell Distribution Width 16.3 H 10.0-14.5 % Platelet Count 347 130-400 10^3/uL Mean Platelet Volume 9.5 7.4-10.4 FL Neutrophils (%) (Auto) 49 42-75 % Lymphocytes (%) (Auto) 36 12-44 % Monocytes (%) (Auto) 11 0-12 % Eosinophils (%) (Auto) 3 0-10 % Basophils (%) (Auto) 1 0-10 % Neutrophils # (Auto) 2.6 1.8-7.8 X 10^3 Lymphocytes # (Auto) 1.9 1.0-4.0 X 10^3 Monocytes # (Auto) 0.6 0.0-1.0 X 10^3 Eosinophils # (Auto) 0.1 0.0-0.3 10^3/uL Basophils # (Auto) 0.0 0.0-0.1 10^3/uL Prothrombin Time 24.5 H 12.2-14.7 SEC INR Comment 2.2 H 0.8-1.4 Activated Partial Thromboplast Time 37 H 24-35 SEC Sodium Level 140 135-145 MMOL/L Potassium Level 3.9 3.6-5.0 MMOL/L Chloride Level 107 98-107 MMOL/L Carbon Dioxide Level 27 21-32 MMOL/L Anion Gap 6 5-14 MMOL/L Blood Urea Nitrogen 19 H 7-18 MG/DL Creatinine 1.00 0.60-1.30 MG/DL Estimat Glomerular Filtration Rate 56 BUN/Creatinine Ratio 19 Glucose Level 113 H 70-105 MG/DL Calcium Level 9.2 8.5-10.1 MG/DL Magnesium Level 2.1 1.8-2.4 MG/DL Total Bilirubin 0.5 0.1-1.0 MG/DL Aspartate Amino Transf (AST/SGOT) 30 5-34 U/L Alanine Aminotransferase (ALT/SGPT) 38 0-55 U/L Alkaline Phosphatase 89 40-136 U/L Troponin I < 0.30 <0.30 NG/ML B-Type Natriuretic Peptide 369.7 H <100.0 PG/ML Total Protein 6.8 6.4-8.2 GM/DL Albumin 4.0 3.2-4.5 GM/DL My Orders Orders - MARIE HAN DO Saline Lock/Iv-Start (09/03/17 10:38) Ekg Tracing (09/03/17 10:38) Monitor-Rhythm Ecg Trace Only (09/03/17 10:38) BNP (09/03/17 10:38) Cbc With Automated Diff (09/03/17 10:38) Comprehensive Metabolic Panel (09/03/17 10:38) Magnesium (09/03/17 10:38) Protime With Inr (09/03/17 10:38) Partial Thromboplastin Time (09/03/17 10:38) Troponin I (09/03/17 10:38) Red Cells Leukocytes Reduced (09/03/17 11:21) Type And Screen (09/03/17 11:21) Chest Pa/Lat (2 View) (09/03/17 12:28) Vital Signs/I&O Vital Sign - Last 12Hours 09/03/17 09/03/17 09/03/17 09/03/17 10:20 13:40 13:44 13:45 Temp 98.0 97.0 97.6 Pulse 79 79 77 Resp 22 18 18 B/P (MAP) 160/70 (100) 157/72 (100) 181/76 (111) Pulse Ox 100 99 O2 Delivery Room Air Room Air Room Air Room Air 09/03/17 09/03/17 09/03/17 09/03/17 14:36 14:55 15:04 16:00 Temp 98.6 98.4 98.4 Pulse 94 109 139 109 Resp 18 16 16 B/P (MAP) 153/73 129/81 129/81 (97) Pulse Ox 99 100 100 O2 Delivery Room Air Room Air Room Air 09/03/17 09/03/17 09/03/17 17:30 17:59 18:19 Temp 99.3 99.5 99.1 Pulse 146 135 125 Resp 18 18 18 B/P (MAP) 138/78 115/87 151/86 Pulse Ox 100 100 99 O2 Delivery Room Air Room Air Room Air Capillary Refill : ECG Initial ECG Impression Date: Sep 03, 2017 Initial ECG Impression Time: 10:21 Initial ECG Rate: 85 Initial ECG Rhythm: Normal Sinus (IVCD) Initial ECG Impression: Nonspecific Changes Departure Communication (Admissions) Progress Notes 1300--SPOKE WITH DR. PERDOMO, ACCEPTS PT FOR ADMIT. WILL CONSULT DR. HOOVER FOR ENDOSCOPY 1307--PAGED DR. HOOVER [id number]--SPOKE WITH DR. HOOVER, AND INFORMED OF CONSULT. Impression Impression: Primary Impression: Anemia Disposition: ADMITTED INPATIENT Condition: Stable Admissions Decision to Admit Reason: Admit from ER (General) Decision to Admit/Date: Sep 03, 2017 Time/Decision to Admit Time: 13:00 Departure-Patient Inst. Referrals: ANTHONY PERDOMO DO (PCP/Family) Primary Care Physician MARIE HAN DO Sep 03, 2017 10:40
[2017-09-03 11:09] LABS: BASOPHILS % (AUTO) 1 % (0-10); EOSINOPHILS # (AUTO) 0.1 10^3/uL (0.0-0.3); EOSINOPHILS % (AUTO) 3 % (0-10); HEMATOCRIT 24 % (35-52); LYMPHOCYTES # (AUTO) 1.9 X 10^3 (1.0-4.0); LYMPHOCYTES % (AUTO) 36 % (12-44); MEAN CORPUSCULAR HEMOGLOBIN 23 PG (25-34); MEAN CORPUSCULAR HGB CONC 29 G/DL (32-36); MEAN CORPUSCULAR VOLUME 80 FL (80-99); MEAN PLATELET VOLUME 9.5 FL (7.4-10.4); MONOCYTES # (AUTO) 0.6 X 10^3 (0.0-1.0); MONOCYTES % (AUTO) 11 % (0-12); NEUTROPHILS # (AUTO) 2.6 X 10^3 (1.8-7.8); NEUTROPHILS % (AUTO) 49 % (42-75); PLATELET COUNT 347 10^3/uL (130-400); RED CELL DISTRIBUTION WIDTH 16.3 % (10.0-14.5); WHITE BLOOD COUNT 5.2 10^3/uL (4.3-11.0)
[2017-09-03 11:24] LABS: INR 2.2 (0.8-1.4); PROTHROMBIN TIME PATIENT 24.5 SEC (12.2-14.7)
[2017-09-03 11:35] LABS: ALANINE AMINOTRANSFERASE 38 U/L (0-55); ALKALINE PHOSPHATASE 89 U/L (40-136); BILIRUBIN,TOTAL 0.5 MG/DL (0.1-1.0); BUN/CREATININE RATIO 19; CALCIUM 9.2 MG/DL (8.5-10.1); CARBON DIOXIDE 27 MMOL/L (21-32); CHLORIDE 107 MMOL/L (98-107); GFR ESTIMATED 56; GLUCOSE 113 MG/DL (70-105); MAGNESIUM 2.1 MG/DL (1.8-2.4); POTASSIUM 3.9 MMOL/L (3.6-5.0); SODIUM 140 MMOL/L (135-145); TOTAL PROTEIN 6.8 GM/DL (6.4-8.2)
--- NOTE | 2017-09-03 13:11 | Diagnostic Imaging Report ---
INDICATION: Weakness and heart palpitations. COMPARISON: 07/02/2017. FINDINGS: Two views of the chest are obtained. Heart size is normal. The pulmonary vessels appear unremarkable. There is no pneumothorax, mediastinal widening or pleural fluid. Lungs are clear. Osseous structure appear unremarkable. IMPRESSION: No acute abnormalities demonstrated. No interval change from the prior study. Dictated by: Dictated on workstation # [id number]
--- OUTSIDE RECORDS SUMMARY | 2017-09-03 13:19 | XMS REPORT | Clinical Summary ---
Author Author [facility] Organization [facility] Address Unknown Phone Unavailable Care Team Providers Care Maintenance Tech Name Role Phone Amanda Ruffin MD Unavailable Bean Carrera MD Unavailable Anselmo Alex APRN Unavailable Unavailable Joyce Sahu MD PCP Matt York MD Unavailable Source Comments Some departments are not documenting in the electronic medical record. If you do not see the information that you expected, contact Release of Information in the Health Information Management department at [phone] for further assistance in locating additional records.[facility] Allergies Active Allergy Reactions Severity Noted [...]
--- OUTSIDE RECORDS SUMMARY | 2017-09-03 13:19 | XMS REPORT | Continuity of Care Document ---
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 Name Role Phone [employer] Unavailable Unavailable Problems Medications Allergies, Adverse Reactions, Alerts Immunizations Results Vital Signs Encounters Location Location Details Encounter Type Encounter Number Reason For Visit Attending Provider ADM Date DC Date Status Source O [id number] BENTLEY CHEATHAM 04/11/2011 04/11/2011 Active [facility] OUTPATIENT [id number] ENEIDA METZGER 04/12/20172016 Active [facility] O CARLTON RIVAS 08/16/2017 Active [facility] Procedures Plan of Care Social History Assessment and Plan Family History Advance Directives Functional Status
[2017-09-03] MEDS ORDERED: PANT40TA3 PO (14:08)
[2017-09-03] MEDS ORDERED: FLUT16SP22 NS (14:08)
[2017-09-03] MEDS ORDERED: OMG1KC PO (14:12)
[2017-09-03] MEDS ORDERED: CHOL10007 PO (14:12)
[2017-09-03] MEDS ORDERED: CYAN10006 PO (14:12)
[2017-09-03] MEDS ORDERED: SENN-1 PO (14:12)
[2017-09-03] MEDS ORDERED: ACET-2267 PO (14:12)
[2017-09-03] MEDS ORDERED: NS IV 500 ML 500 ML IV SCH (14:15)
[2017-09-03] MEDS ORDERED: CATHETER FLUSH 10 ML SYR IV PRN (14:15)
[2017-09-03] MEDS: NS IV 1000 ML 1,000 ML IV SCH (14:20)
[2017-09-03] MEDS ORDERED: INFLUENZA TRIvalent 2017-2018 0.5 ML/45 MCG SYR IM ONE (15:15)
[2017-09-03] MEDS ORDERED: PATIENT MAY USE OWN MEDS, ALL MC SCH (15:45)
--- NOTE | 2017-09-03 16:27 | Consultation ---
History of Present Illness History of Present Illness Patient Consulted On(ramiro/time) 09/03/17 16:22 Date Seen by Provider: Sep 03, 2017 Time Seen by Provider: 15:10 Reason for Visit: Severe anemia leading to dizziness and chest pressure. History of Present Illness This lady has been on antiarrhythmic medications including anticoagulants. Around noon today, she felt pressure in her substernal region and dizzy, leading to an ER visit. Evaluation is confirmed anemia with a hemoglobin of 7 requiring hospital admission and blood transfusion. She was evaluated for a GI source of blood loss 2 years ago with negative upper endoscopy and colonoscopy. 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 It was suggested that push enteroscopy be attempted, with a view to treating the AV malformation. She confirms being managed by a rigger chief in [place] and I have requested records. 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 Most recent examination performed in March 2017 appears to be unchanged. 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 Allergies and Home Medications Allergies Coded Allergies: Beta-Blockers (Beta-Adrenergic Bloc (Unverified Allergy, Unknown, 11/20/12) atenolol (Verified Allergy, Unknown, 04/05/07) Home Medications Acetaminophen 500 Mg Tablet, 1,000 MG PO TID, (Reported) TAKES 2 (500MG) TABLETS Cholecalciferol (Vitamin D3) 1,000 Unit Capsule, 1,000 UNIT PO DAILY, (Reported) Cyanocobalamin (Vitamin B-12) 1,000 Mcg Tablet, 1,000 MCG PO DAILY, (Reported) Diltiazem HCl 180 Mg Cap.er.24h, 180 MG PO HS, (Reported) Fluticasone Propionate 16 Gm [place].susp, 2 SPRAYS NS DAILY PRN for ALLERGIES, ( Reported) [place] 3 Polyunsat Fatty Acids 1,000 Mg Cap, 1,000 MG PO HS, (Reported) Pantoprazole Sodium 40 Mg Tablet.dr, 40 MG PO DAILY, (Reported) Propafenone HCl 225 Mg Cap, 225 MG PO TID, (Reported) Rivaroxaban 20 Mg Tablet, 20 MG PO HS, (Reported) Sennosides/Docusate Sodium 1 Each Tablet, 1 TAB PO BID, (Reported) Patient Home Medication List Home Medication List Reviewed: Yes Past Ngteekm-Wqhbcy-Cvmolu Hx Patient Social History Alcohol Use: Denies Use Recreational Drug Use: No Smoking Status: Never a Smoker 2nd Hand Smoke Exposure: No Recent Foreign Travel: No Contact w/Someone Who Travel: No Recent Infectious Disease Expo: No Recent Hopitalizations: No Immunizations Up To Date Tetanus Booster (TDap): Unknown PED Vaccines UTD: No Date of Pneumonia Vaccine: Mar 11, 2011 Date of Influenza Vaccine: May 04, 2014 Seasonal Allergies Seasonal Allergies: Yes Surgeries History of Surgeries: Yes (HIATAL HERNIA, 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) Surgeries: Abdominal, Appendectomy, Section, Gallbladder, 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 , Neurological, Oophorectomy Respiratory History of Respiratory Disorde: No Currently Using CPAP: No Currently Using BIPAP: No Cardiovascular History of Cardiac Disorders: Yes (RBBB) Cardiac Disorders: Atrial Fibrillation, Heart Murmur, Hypertension, Valvular Heart Disease Neurological History of Neurological Disord: Yes Neurological Disorders: Headaches /Migraines, Neuropathy 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 System Hx 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 Disorders: Yes (CERVICAL DYSPLASIA) Sexually Transmitted Disease: No HIV/AIDS: No Female 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 Disorders: Denies RN WOUND History: 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, Menopausal Genitourinary History of Genitourinary Disor: Yes (RENAL INSUFFICIENCY) Genitourinary Disorders: Kidney Infection, Bladder Infection, Renal Failure Gastrointestinal History of Gastrointestinal Di: Yes Gastrointestinal Disorders: Gastroesophageal Reflux, Gastrointestinal Bleed, Chronic Constipation, Hiatal Hernia, Gall Bladder Disease Musculoskeletal History of Musculoskeletal Dis: Yes (KNEES, BACK, HIPS) Musculoskeletal Disorders: Arthritis, Chronic Back Pain Endocrine History of Endocrine Disorders: Yes (Pre Diabetic) Endocrine Disorders: Diabetes, Non-Insulin dep HEENT History of HEENT Disorders: No Loss of Vision: Denies Hearing Impairment: Denies Cancer History of Cancer: Yes Cancer: Bone Did You Recieve Any Treatments: Yes Type of Tx Receive: Chemotherapy, Radiation, Surgical Intervention Psychosocial History of Psychiatric Problem: Yes Behavioral Health Disorders: Anxiety Integumentary History of Skin or Integumenta: No Blood Transfusions History of Blood Disorders: Yes (ANEMIA) Adverse Reaction to a Blood Tr: No Family Medical History Significant Family History: Heart Disease Family Medial History: Arthritis 19 MOTHER, Onset:30's - 40 (RA) Cardiovascular disease 19 MOTHER, Onset:40's - 50 Completed stroke 19 MOTHER, Onset:60 years & older Headache disorder 19 FATHER, Onset:Unknown (severe sinus headaches) Hypertension 19 MOTHER, Onset:50's - 60 Myocardial infarction 19 MOTHER, Onset:60 years & older Psychosocial problem 19 FATHER, Onset:Unknown No Family History of: AIDS Abdominal aortic aneurysm Sundeep's disease Alcoholism Alzheimer's disease Aphasia Asthma Cancer of mouth Cataracts Colon cancer Congenital disease Congenital heart disease Coronary thrombosis Cystic fibrosis Deafness or hearing loss Dementia Diabetes mellitus Drug abuse Dysphasia Fibrocystic disease of breast Gastroenteritis Glaucoma Hypercholesterolemia Infertility Kidney disease Neoplasm Not obtainable due to adoption Osteoporosis Parkinson's disease Prostate cancer Respiratory disorder Seizure disorder Severe allergy Thyroid disease Tuberculosis Visual disorder Review of Systems-General Constitutional: see HPI EENTM: no symptoms reported Cardiovascular: see HPI Gastrointestinal: see HPI Musculoskeletal: joint pain, muscle weakness Skin: change in color Psychiatric/Neurological: No Symptoms Reported Physical Exam-General Problems Physical Exam Vital Signs Vital Signs - First Documented 09/03/17 10:20 Temp 98.0 Pulse 79 Resp 22 B/P (MAP) 160/70 (100) Pulse Ox 100 O2 Delivery Room Air Capillary Refill : Less Than 3 Seconds General Appearance: no apparent distress HEENT: normal ENT inspection Neck: normal inspection Cardiovascular: tachycardia Gastrointestinal: non tender, soft Rectal: deferred Skin: pallor Assessment/Plan Assessment/Plan Admission Diagnosis/Plan Lady with ongoing anemia. Previous ependymoma of the spinal cord. 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 Previous negative EGD and colonoscopy. Reasonable to continue the transfusion and liase with the rigger chief that has taken care of her before Clinical Quality Measures DVT/VTE Risk/Contraindication: Risk Factor Score Per Nursin RFS Level Per Nursing on Admit: 3=High BEST HOOVER MD Sep 03, 2017 4:27 pm
--- NOTE | 2017-09-03 18:54 | History & Physicial ---
History of Present Illness History of Present Illness Reason for visit/HPI This is a 67 year old female who presented to the emergency room with chest pressure, shortness of air, feeling like her heart was flopping in her chest, weakness and near syncope. She admitted that she had been out if her propafenone for 3 days. She was found to be anemic with a hemoglobin of 7 and in atrial fibrillation which she has a known history of. She will be admitted for blood transfusion and monitor on telemetry. Surgery will be consulted for consideration of endoscopy. Date of Admission Sep 03, 2017 at 13:00 Date Seen by Provider: Sep 03, 2017 Time Seen by Provider: 18:49 I consulted on this patient on 09/03/17 18:49 Attending Physician Joyce Sahu DO Admitting Physician Joyce Sahu DO Consult Allergies and Home Medications Allergies Coded Allergies: Beta-Blockers (Beta-Adrenergic Bloc (Unverified Allergy, Unknown, 11/20/12) atenolol (Verified Allergy, Unknown, 04/05/07) Home Medications Acetaminophen 500 Mg Tablet, 1,000 MG PO TID, (Reported) TAKES 2 (500MG) TABLETS Cholecalciferol (Vitamin D3) 1,000 Unit Capsule, 1,000 UNIT PO DAILY, (Reported) Cyanocobalamin (Vitamin B-12) 1,000 Mcg Tablet, 1,000 MCG PO DAILY, (Reported) Diltiazem HCl 180 Mg Cap.er.24h, 180 MG PO HS, (Reported) Fluticasone Propionate 16 Gm [place].susp, 2 SPRAYS NS DAILY PRN for ALLERGIES, ( Reported) [place] 3 Polyunsat Fatty Acids 1,000 Mg Cap, 1,000 MG PO HS, (Reported) Pantoprazole Sodium 40 Mg Tablet.dr, 40 MG PO DAILY, (Reported) Propafenone HCl 225 Mg Cap, 225 MG PO TID, (Reported) Rivaroxaban 20 Mg Tablet, 20 MG PO HS, (Reported) Sennosides/Docusate Sodium 1 Each Tablet, 1 TAB PO BID, (Reported) Patient Home Medication List Home Medication List Reviewed: Yes Past Fqpralh-Oveugz-Pmwtle Hx Patient Social History Alcohol Use: Denies Use Recreational Drug Use: No Smoking Status: Never a Smoker 2nd Hand Smoke Exposure: No Physical Abuse Screen: No Sexual Abuse: No Recent Foreign Travel: No Contact w/other who traveled: No Recent Hopitalizations: No Recent Infectious Disease Expo: No Immunizations Up To Date Tetanus Booster (TDap): Unknown Pediatric: No Date of Pneumonia Vaccine: Mar 11, 2011 Date of Influenza Vaccine: May 04, 2014 Seasonal Allergies Seasonal Allergies: Yes Surgeries Yes (HIATAL HERNIA, 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) Abdominal, Appendectomy, Section, Gallbladder, 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, Neurological, Oophorectomy Respiratory No Currently Using CPAP: No Currently Using BIPAP: No Cardiovascular Yes (RBBB) Atrial Fibrillation, Heart Murmur, Hypertension, Valvular Heart Disease Neurological Yes Headaches /Migraines, Neuropathy 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 System Hx 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 Disorders: Yes (CERVICAL DYSPLASIA) Sexually Transmitted Disease: No HIV/AIDS: No Female 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 Disorders: Denies HEALTH NURSE History: 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, Menopausal Genitourinary Yes (RENAL INSUFFICIENCY) Kidney Infection, Bladder Infection, Renal Failure Gastrointestinal Yes Gastroesophageal Reflux, Gastrointestinal Bleed, Chronic Constipation, Hiatal Hernia, Gall Bladder Disease Musculoskeletal Yes (KNEES, BACK, HIPS) Arthritis, Chronic Back Pain Endocrine History of Endocrine Disorders: Yes (Pre Diabetic) Endocrine Disorders: Diabetes, Non-Insulin dep HEENT History of HEENT Disorders: No Loss of Vision: Denies Hearing Impairment: Denies Cancer Yes Bone Did You Recieve Any Treatments: Yes Type of Treatment: Chemotherapy, Radiation, Surgical Intervention Psychosocial History of Psychiatric Problem: Yes Behavioral Health Disorders: Anxiety Integumentary History of Skin or Integumenta: No Blood Transfusions History of Blood Disorders: Yes (ANEMIA) Adverse Reaction to a Blood Tr: No Family Medical History Significant Family History: Heart Disease Family Hx: Arthritis 19 MOTHER, Onset:30's - 40 (RA) Cardiovascular disease 19 MOTHER, Onset:40's - 50 Completed stroke 19 MOTHER, Onset:60 years & older Headache disorder 19 FATHER, Onset:Unknown (severe sinus headaches) Hypertension 19 MOTHER, Onset:50's - 60 Myocardial infarction 19 MOTHER, Onset:60 years & older Psychosocial problem 19 FATHER, Onset:Unknown No Family History of: AIDS Abdominal aortic aneurysm Sundeep's disease Alcoholism Alzheimer's disease Aphasia Asthma Cancer of mouth Cataracts Colon cancer Congenital disease Congenital heart disease Coronary thrombosis Cystic fibrosis Deafness or hearing loss Dementia Diabetes mellitus Drug abuse Dysphasia Fibrocystic disease of breast Gastroenteritis Glaucoma Hypercholesterolemia Infertility Kidney disease Neoplasm Not obtainable due to adoption Osteoporosis Parkinson's disease Prostate cancer Respiratory disorder Seizure disorder Severe allergy Thyroid disease Tuberculosis Visual disorder Constitutional: weakness EENTM: No see HPI, No no symptoms reported, No ear discharge, No hearing loss, No ear pain, No blurred vision, No double vision, No eye pain, No tearing, No vision loss, No dental problems, No hoarseness, No mouth pain, No mouth swelling , No epistaxis, No nose congestion, No nose pain, No throat pain, No throat swelling, No other Respiratory: dyspnea on exertion, orthopnea, short of breath Cardiovascular: chest pain (pressure), palpitations Gastrointestinal: No RUQ, No LUQ, No RLQ, No LLQ, No no symptoms reported, No see HPI, No abdominal pain, No constipation, No diarrhea, No dysphagia, No hematemesis, No heartburn, No jaundice, No loss of appetite, No melena, No nausea, No vomiting, No other Genitourinary: No no symptoms reported, No see HPI, No decreased output, No discharge, No dysuria, No frequency, No hematuria, No hesitancy, No incontinence , No nocturia, No pain, No other Musculoskeletal: No no symptoms reported, No see HPI, No back pain, No gout, No joint pain, No joint swelling, No muscle pain, No muscle stiffness, No muscle cramps, No muscle twitching, No muscle weakness, No neck pain, No other Skin: No no symptoms reported, No see HPI, No change in color, No change in hair/nails, No dryness, No hx of skin cancer, No lesions, No lumps, No pruritus , No rash, No other Psychiatric/Neurological: Weakness Physical Exam Vital Signs Vital Signs - First Documented 09/03/17 10:20 Temp 98.0 Pulse 79 Resp 22 B/P (MAP) 160/70 (100) Pulse Ox 100 O2 Delivery Room Air Capillary Refill : Less Than 3 Seconds General Appearance: No Apparent Distress HEENT: Normal ENT Inspection Neck: Supple Respiratory: Lungs Clear Cardiovascular: Systolic Murmur, Gallop/S4, Irregularly Irregular Gastrointestinal: Normal Bowel Sounds, Non Tender, Soft Back: No CVA Tenderness Extremity: Non Tender, No Calf Tenderness, No Pedal Edema Neurologic/Psychiatric: Alert, Oriented x3 Skin: Warm/Dry Comments Laboratory Tests 09/03/17 11:00: White Blood Count 5.2, Red Blood Count 3.00L, Hemoglobin 7.0L, Hematocrit 24L, Mean Corpuscular Volume 80, Mean Corpuscular Hemoglobin 23L, Mean Corpuscular Hemoglobin Concent 29L, Red Cell Distribution Width 16.3H, Platelet Count 347, Mean Platelet Volume 9.5, Neutrophils (%) (Auto) 49, Lymphocytes (%) (Auto) 36, Monocytes (%) (Auto) 11, Eosinophils (%) (Auto) 3, Basophils (%) (Auto) 1, Neutrophils # (Auto) 2.6, Lymphocytes # (Auto) 1.9, Monocytes # (Auto) 0.6, Eosinophils # (Auto) 0.1, Basophils # (Auto) 0.0, Prothrombin Time 24.5H, INR Comment 2.2H, Activated Partial Thromboplast Time 37H, Sodium Level 140, Potassium Level 3.9, Chloride Level 107, Carbon Dioxide Level 27, Anion Gap 6, Blood Urea Nitrogen 19H, Creatinine 1.00, Estimat Glomerular Filtration Rate 56 , BUN/Creatinine Ratio 19, Glucose Level 113H, Calcium Level 9.2, Magnesium Level 2.1, Total Bilirubin 0.5, Aspartate Amino Transf (AST/SGOT) 30, Alanine Aminotransferase (ALT/SGPT) 38, Alkaline Phosphatase 89, Troponin I < 0.30, B- Type Natriuretic Peptide 369.7H, Total Protein 6.8, Albumin 4.0 Assessment/Plan Assessment and Plan 1. Acute Anemia--admit for transfusion and monitor H/H, hold xarelto and start protonix, consult surgery for possible endoscopy 2. Atrial fibrillation with RVR--resume propafenone and cardizem, monitor on telemetry, consult cardiology Problems: Admission Diagnosis Admission Status: Observation Clinical Quality Measures DVT/VTE Risk/Contraindication: Risk Factor Score Per Nursin RFS Level Per Nursing on Admit: 3=High JOYCE SAHU DO Sep 03, 2017 18:54
[2017-09-03] MEDS ORDERED: PROPAFENONE 150 MG (RYTHMOL) TABLET PO NR (19:00)
[2017-09-03] MEDS ORDERED: SENNA W/DOCUSATE (SENOKOT S) TABLET PO SCH (21:00)
[2017-09-03] MEDS ORDERED: PROPAFENONE 150 MG (RYTHMOL) TABLET PO SCH (21:00)
[2017-09-03] MEDS ORDERED: DILTIAZEM 180 MG (CARDIZEM CD) CAP PO SCH ×2 (21:00)
[2017-09-03] MEDS ORDERED: PROPAFENONE HCL 225 MG PO SCH (21:00)
[2017-09-03] MEDS: PROPAFENONE 225 MG PO SCH (21:43)
[2017-09-03] MEDS: SENNA W/DOCUSATE (SENOKOT S) TABLET PO SCH (21:43)
[2017-09-03 23:04] LABS: HEMOGLOBIN 8.4 G/DL (11.5-16.0)
[2017-09-04] VITALS (9 sets, daily range): BP systolic 137–180; BP diastolic 63–78
[2017-09-04 06:26] LABS: BASOPHILS % (AUTO) 1 % (0-10); EOSINOPHILS # (AUTO) 0.2 10^3/uL (0.0-0.3); EOSINOPHILS % (AUTO) 3 % (0-10); HEMATOCRIT 27 % (35-52); HEMOGLOBIN 8.3 G/DL (11.5-16.0); LYMPHOCYTES # (AUTO) 1.9 X 10^3 (1.0-4.0); LYMPHOCYTES % (AUTO) 33 % (12-44); MEAN CORPUSCULAR HEMOGLOBIN 25 PG (25-34); MEAN CORPUSCULAR HGB CONC 31 G/DL (32-36); MEAN CORPUSCULAR VOLUME 80 FL (80-99); MEAN PLATELET VOLUME 10.4 FL (7.4-10.4); MONOCYTES # (AUTO) 0.7 X 10^3 (0.0-1.0); MONOCYTES % (AUTO) 12 % (0-12); NEUTROPHILS % (AUTO) 51 % (42-75); PLATELET COUNT 297 10^3/uL (130-400); RED BLOOD COUNT 3.34 10^6/uL (4.35-5.85); RED CELL DISTRIBUTION WIDTH 16.7 % (10.0-14.5); WHITE BLOOD COUNT 5.9 10^3/uL (4.3-11.0)
[2017-09-04 06:53] LABS: ALANINE AMINOTRANSFERASE 37 U/L (0-55); ALBUMIN 3.6 GM/DL (3.2-4.5); ALKALINE PHOSPHATASE 78 U/L (40-136); BILIRUBIN,TOTAL 1.1 MG/DL (0.1-1.0); BUN/CREATININE RATIO 21; CALCIUM 8.6 MG/DL (8.5-10.1); CARBON DIOXIDE 24 MMOL/L (21-32); CHLORIDE 110 MMOL/L (98-107); GFR ESTIMATED > 60; GLUCOSE 89 MG/DL (70-105); POTASSIUM 3.9 MMOL/L (3.6-5.0); SODIUM 140 MMOL/L (135-145); TOTAL PROTEIN 6.2 GM/DL (6.4-8.2)
[2017-09-04] MEDS ORDERED: PANTOPRAZOLE 40 MG (PROTONIX) TAB PO SCH ×2 (07:00)
[2017-09-04] MEDS: SENNA W/DOCUSATE (SENOKOT S) TABLET PO SCH (08:42)
[2017-09-04] MEDS: PROPAFENONE 225 MG PO SCH ×2 (08:42→13:23)
--- NOTE | 2017-09-04 10:00 | Cardiology Progress Note ---
Subjective Date Seen by Provider: Sep 04, 2017 Time Seen by Provider: 09:52 Subjective/Events-last exam 67 years old lady with history of paroxysmal atrial fibrillation, history of GI bleed with AV malformation. Missed her antiarrhythmic medication for about 3 days, started having palpitation and feeling fluttering in her chest and pressure in addition to headache. Came into the emergency room and she was admitted after she was noted to be in atrial fibrillation and having anemia with hemoglobin of 7. Patient received blood transfusion, she is feeling better this morning. Denied any chest pain, denied any palpitation. Has been compliant with her medication. Objective-Cardiology Exam Last Set of Vital Signs Vital Signs 09/04/17 09/04/17 04:00 06:00 Temp 97.7 Pulse 78 Resp 18 B/P (MAP) 138/67 (90) Pulse Ox 98 O2 Delivery Room Air Capillary Refill : Less Than 3 Seconds I&O Intake and Output 09/04/17 00:00 Intake Total 720 ml Output Total 1000 ml Balance -280 ml Intake Oral 720 ml Output Urine Total 1000 ml # Voids 2 Daily Weight Change No General: Alert, Oriented X3, Cooperative HEENT: Atraumatic, PERRLA Neck: Supple, No JVD, No Thyromegaly Lungs: Clear to Auscultation, Normal Air Movement Heart: Regular Rate, Normal S1, Normal S2, No Murmurs Abdomen: Normal Bowel Sounds, Soft, No Tenderness, No Hepatosplenomegaly, No Masses Extremities: No Clubbing, No Cyanosis, No Edema, Normal Pulses, No Tenderness/ Swelling Skin: No Rashes, No Breakdown, No Significant Lesion Neuro: Normal Gait, Normal Speech, Strength at 5/5 X4 Ext, Normal Tone, Sensation Intact Psych/Mental Status: Mental Status NL, Mood NL Results Lab Laboratory Tests 09/03/17 11:00 09/03/17 22:55 09/04/17 05:50 A/P-Cardiology Admission Diagnosis Paroxysmal atrial fibrillation GI bleed Anemia Palpitation Assessment/Plan Paroxysmal atrial fibrillation, back to sinus rhythm, she has skipped her Rythmol for 3 days, currently doing better. Continue to monitor Anemia, hemoglobin of 7, has been seen by Dr. Candelario, had extensive workup which showed AV malformation. Currently in an out of atrial fibrillation, she will need to have anticoagulation until her arrhythmia is stabilizing. Received blood transfusion, continue to monitor H&H closely GI bleed, history of GI bleed while on Coumadin and on Pradaxa, had extensive workup which showed AV malformation at the jejunum, seeing Dr. Esquivel and Dr. Candelario. I restarted Xarelto, continue to monitor H&H [id number] score of 3, yearly risk of stroke without oral anticoagulation is 3.2 percent. I am restarting Xarelto. Continue to monitor Hypertension, restarted on home medication and continue to monitor at this time. Mild bilateral carotid stenosis, ultrasound was done in September 2016, continue to monitor. History of Abnormal baseline EKG with sinus rhythm, right bundle branch block, right ventricular hypertrophy pattern. Continue to monitor Last echocardiogram was done in December 2015 showing PA pressure of 35-40 mmHg, normal LV size and function, EF 60 percent. Continue to monitor Syncope while on atenolol, was unable to tolerate it in the past. History of GI bleed on Pradaxa in 2012, currently stable. Continue to monitor Pancreatic nodule, had workup done with Dr. Candelario, possible referral to or [facility]. Family history of coronary artery disease and CVA Gastroesophageal reflux disease Anxiety History of anemia, continue to monitor Knee pain, surgery is delayed at this time Clinical Quality Measures DVT/VTE Risk/Contraindication: Risk Factor Score Per Nursin RFS Level Per Nursing on Admit: 3=High DAMON CLAUDIO MD Sep 04, 2017 10:00
[2017-09-04] MEDS: NS IV 1000 ML 1,000 ML IV SCH (14:36)
--- NOTE | 2017-09-04 18:10 | Discharge Summary ---
Diagnosis/Chief Complaint Date of Admission Sep 03, 2017 at 13:00 Date of Discharge Discharge Date: Sep 04, 2017 Discharge Time: 1814 Discharge Summary Discharge Physical Examination Allergies: Coded Allergies: Beta-Blockers (Beta-Adrenergic Bloc (Unverified Allergy, Unknown, 11/20/12) atenolol (Verified Allergy, Unknown, 04/05/07) Vitals & I&Os Vital Signs Date Time Temp Pulse Resp B/P (MAP) Pulse Ox O2 Delivery O2 Flow Rate FiO2 09/04/17 15:45 99.8 85 16 156/70 (98) 99 Room Air General Appearance: Alert, Oriented X3, Cooperative HEENT: Atraumatic, PERRLA Respiratory: Clear to Auscultation, Normal Air Movement Cardiovascular: Regular Rate, Normal S1, Normal S2, No Murmurs Abdominal: Normal Bowel Sounds, Soft, No Tenderness, No Hepatosplenomegaly, No Masses Extremities: No Clubbing, No Cyanosis, No Edema, Normal Pulses, No Tenderness/ Swelling Skin: No Rashes, No Breakdown, No Significant Lesion Neuro: Normal Gait, Normal Speech, Strength at 5/5 X4 Ext, Normal Tone, Sensation Intact Psych/Mental Status: Mental Status NL, Mood NL Hospital Course Pending Labs Laboratory Tests 09/04/17 14:43: Lab Scanned Report Transfusion Reaction Form Discharge Instructions to patient/family Please see electronic discharge instructions given to patient. Discharge Medications Reviewed and agree with Discharge Medication list on patient's Discharge Instruction sheet Clinical Quality Measures DVT/VTE Risk/Contraindication: Risk Factor Score Per Nursin RFS Level Per Nursing on Admit: 3=High LARRY PLUNKETT MD Sep 04, 2017 18:10
--- NOTE | 2017-09-04 18:10 | Discharge Inst-Complex ---
PDI Med Rec & Follow Up Appt. Continued Medications: Acetaminophen (Tylenol Extra Strength) 500 Mg Tablet 1000 MG PO TID, TAB TAKES 2 (500MG) TABLETS Cholecalciferol (Vitamin D3) (Vitamin D3) 1,000 Unit Capsule 1000 UNIT PO DAILY, CAP Cyanocobalamin (Vitamin B-12) (Vitamin B-12) 1,000 Mcg Tablet 1000 MCG PO DAILY, TAB Diltiazem HCl ([place] Xt) 180 Mg Cap.er.24h 180 MG PO HS, CAP Fluticasone Propionate (Fluticasone Propionate) 16 Gm [place].susp 2 SPRAYS NS DAILY PRN for ALLERGIES, EA [place] 3 Polyunsat Fatty Acids (Fish Oil 1,000 mg Capsule) 1,000 Mg Cap 1000 MG PO HS, CAP Pantoprazole Sodium (Pantoprazole Sodium) 40 Mg Tablet.dr 40 MG PO DAILY, TAB Propafenone HCl (Propafenone HCl ER) 225 Mg Cap 225 MG PO TID, CAP Rivaroxaban (Xarelto) 20 Mg Tablet 20 MG PO HS, TAB Sennosides/Docusate Sodium (Senna S Tablet) 1 Each Tablet 1 TAB PO BID, TAB Patient Instructions: FOLLOW UP WITH [facility] IN 1 WEEK AND FOLLOW UP WITH GI SPECIALIST PREVIOUSLY DIRECTED Activity, Diet and PDI Resume Normal Activity: Yes Discharge Diet: Regular Diet Drink 6-8 Glasses of Fluid/Day: Yes Symptoms to Reoprt to : Appetite Changes, Fever Over 101 Degrees F LARRY PLUNKETT MD Sep 04, 2017 18:10
[2017-09-04] MEDS ORDERED: RIVAROXABAN 20 MG TABLET (XARELTO) PO SCH (21:00)
== END 2017-09-04 20:46 | disposition home or self-care (01) ==
LOC: EDUNIT# 10:11 → ER 10:12 → 4TH 13:00
PROVIDERS: ADMIT Family Medicine; ATTEND Family Medicine
DX: D64.9 Anemia, unspecified (principal); I48.0 Paroxysmal atrial fibrillation; K92.2 Gastrointestinal hemorrhage, unspecified; I10 Essential (primary) hypertension; I65.23 Occlusion and stenosis of bilateral carotid arteries; K86.9 Disease of pancreas, unspecified; Z82.49 Family history of ischemic heart disease and other diseases of the circulatory system; K21.9 Gastro-esophageal reflux disease without esophagitis; F41.9 Anxiety disorder, unspecified; R73.03 Prediabetes; Z85.830 Personal history of malignant neoplasm of bone; Z92.21 Personal history of antineoplastic chemotherapy; Z92.3 Personal history of irradiation
CPT/HCPCS: 36415; 71046; 80053; 83735; 83880; 84484; 85014; 85018; 85025; 85610; 85730; 86850; 86900; 86901; 86920; 93005; 93041

== ENCOUNTER 2017-09-13 01:19 | Emergency (ER) | payer MEDICARE, OTHER ==
[~2017-09-13] VITALS: Ht 167.6 cm; Wt 84.4 kg
[~2017-09-13 01:19] MED LIST changes: +ACET-2267 PO; +CHOL10007 PO; +CYAN10006 PO; +FLUT16SP22 NS; +OMG1KC PO; +PANT40TA3 PO; +SENN-1 PO
[2017-09-13] MEDS ORDERED: FERR160T5 PO (01:45)
[2017-09-13 02:17] LABS: HEMOGLOBIN 10.6 G/DL (11.5-16.0); MEAN PLATELET VOLUME 10.6 FL (7.4-10.4); RED BLOOD COUNT 4.18 10^6/uL (4.35-5.85); RED CELL DISTRIBUTION WIDTH 19.2 % (10.0-14.5); WHITE BLOOD COUNT 7.5 10^3/uL (4.3-11.0)
[2017-09-13 02:29] LABS: CALCIUM 9.5 MG/DL (8.5-10.1); CREATININE SERUM 1.11 MG/DL (0.60-1.30)
--- NOTE | 2017-09-13 02:34 | ED Cardiac General ---
History of Present Illness General Chief Complaint: Cardiac/General Problems Stated Complaint: A-FIB Nursing Triage Note: PT PRESENTS TO ER WITH COMPLAINT OF AFIB. STATES SHE HAS A KNOWN HISTORY OF AFIB AND WAS RECENTLY DISCHARGED FROM THE HOSPITAL WITH A LOW HGB. Source: patient, old records Exam Limitations: no limitations History of Present Illness Date Seen by Provider: Sep 13, 2017 Time Seen by Provider: 01:45 Initial Comments This 67-year-old woman with known paroxysmal atrial fibrillation presents to the emergency room with concern about persistent atrial fibrillation. She was recently admitted to the hospital for severe anemia requiring transfusion and persistent atrial fibrillation. By the time of assessment she had converted to sinus rhythm. She requested evaluation of her hemoglobin before dismissal. Patient is anticoagulated. Allergies and Home Medications Allergies Coded Allergies: Beta-Blockers (Beta-Adrenergic Bloc (Unverified Allergy, Unknown, 11/20/12) atenolol (Verified Allergy, Unknown, 04/05/07) Home Medications Acetaminophen 500 Mg Tablet, 1,000 MG PO TID, (Reported) TAKES 2 (500MG) TABLETS Cholecalciferol (Vitamin D3) 1,000 Unit Capsule, 1,000 UNIT PO DAILY, (Reported) Cyanocobalamin (Vitamin B-12) 1,000 Mcg Tablet, 1,000 MCG PO DAILY, (Reported) Diltiazem HCl 180 Mg Cap.er.24h, 180 MG PO HS, (Reported) Fluticasone Propionate 16 Gm Kenvir.susp, 2 SPRAYS NS DAILY PRN for ALLERGIES, ( Reported) [place] 3 Polyunsat Fatty Acids 1,000 Mg Cap, 1,000 MG PO HS, (Reported) Pantoprazole Sodium 40 Mg Tablet.dr, 40 MG PO DAILY, (Reported) Propafenone HCl 225 Mg Cap, 225 MG PO TID, (Reported) Rivaroxaban 20 Mg Tablet, 20 MG PO HS, (Reported) Sennosides/Docusate Sodium 1 Each Tablet, 1 TAB PO BID, (Reported) Patient Home Medication List Home Medication List Reviewed: Yes Review of Systems Constitutional: no symptoms reported EENTM: No Symptoms Reported Respiratory: No Symptoms Reported Cardiovascular: See HPI Gastrointestinal: No Symptoms Reported Genitourinary: No Symptoms Reported Musculoskeletal: no symptoms reported Skin: no symptoms reported Psychiatric/Neurological: No Symptoms Reported Endocrine: No Symptoms Reported Hematologic/Lymphatic: See HPI Past Xvvtzlk-Cetvpb-Lcpzlt Hx Patient Social History Alcohol Use: Denies Use Recreational Drug Use: No Smoking Status: Never a Smoker 2nd Hand Smoke Exposure: No Recent Foreign Travel: No Contact w/Someone Who Travel: No Recent Infectious Disease Expo: No Recent Hopitalizations: Yes (D/C 09/03/17) Immunizations Up To Date Tetanus Booster (TDap): Unknown PED Vaccines UTD: No Date of Pneumonia Vaccine: Mar 11, 2011 Date of Influenza Vaccine: May 04, 2014 Seasonal Allergies Seasonal Allergies: Yes Surgeries History of Surgeries: Yes (HIATAL HERNIA, 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) Surgeries: Abdominal, Appendectomy, Section, Gallbladder, 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 , Neurological, Oophorectomy Respiratory History of Respiratory Disorde: No Currently Using CPAP: No Currently Using BIPAP: No Cardiovascular History of Cardiac Disorders: Yes (RBBB) Cardiac Disorders: Atrial Fibrillation, Heart Murmur, Hypertension, Valvular Heart Disease Neurological History of Neurological Disord: Yes Neurological Disorders: Headaches /Migraines, Neuropathy 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 System Hx 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 Disorders: Yes (CERVICAL DYSPLASIA) Sexually Transmitted Disease: No HIV/AIDS: No Female 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 Disorders: Denies 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, Menopausal Genitourinary History of Genitourinary Disor: Yes (RENAL INSUFFICIENCY) Genitourinary Disorders: Kidney Infection, Bladder Infection, Renal Failure Gastrointestinal History of Gastrointestinal Di: Yes Gastrointestinal Disorders: Gastroesophageal Reflux, Gastrointestinal Bleed, Chronic Constipation, Hiatal Hernia, Gall Bladder Disease Musculoskeletal History of Musculoskeletal Dis: Yes (KNEES, BACK, HIPS) Musculoskeletal Disorders: Arthritis, Chronic Back Pain Endocrine History of Endocrine Disorders: Yes (Pre Diabetic) Endocrine Disorders: Diabetes, Non-Insulin dep HEENT History of HEENT Disorders: No Loss of Vision: Denies Hearing Impairment: Denies Cancer History of Cancer: Yes Cancer: Bone Did You Recieve Any Treatments: Yes Type of Tx Receive: Chemotherapy, Radiation, Surgical Intervention Psychosocial History of Psychiatric Problem: Yes Behavioral Health Disorders: Anxiety Integumentary History of Skin or Integumenta: No Blood Transfusions History of Blood Disorders: Yes (ANEMIA) Adverse Reaction to a Blood Tr: No Family Medical History Significant Family History: Heart Disease Family Medial History: Arthritis 19 MOTHER, Onset:30's - 40 (RA) Cardiovascular disease 19 MOTHER, Onset:40's - 50 Completed stroke 19 MOTHER, Onset:60 years & older Headache disorder 19 FATHER, Onset:Unknown (severe sinus headaches) Hypertension 19 MOTHER, Onset:50's - 60 Myocardial infarction 19 MOTHER, Onset:60 years & older Psychosocial problem 19 FATHER, Onset:Unknown No Family History of: AIDS Abdominal aortic aneurysm Clare's disease Alcoholism Alzheimer's disease Aphasia Asthma Cancer of mouth Cataracts Colon cancer Congenital disease Congenital heart disease Coronary thrombosis Cystic fibrosis Deafness or hearing loss Dementia Diabetes mellitus Drug abuse Dysphasia Fibrocystic disease of breast Gastroenteritis Glaucoma Hypercholesterolemia Infertility Kidney disease Neoplasm Not obtainable due to adoption Osteoporosis Parkinson's disease Prostate cancer Respiratory disorder Seizure disorder Severe allergy Thyroid disease Tuberculosis Visual disorder Physical Exam Vital Signs Vital Signs - First Documented 09/13/17 01:27 Temp 98.0 Pulse 122 Resp 20 B/P (MAP) 140/95 (110) Pulse Ox 100 O2 Delivery Room Air Capillary Refill : Less Than 3 Seconds General Appearance: No Apparent Distress, WD/WN HEENT: PERRL/EOMI, Normal ENT Inspection Neck: Normal Inspection Respiratory: Lungs Clear, Normal Breath Sounds, No Accessory Muscle Use, No Respiratory Distress Cardiovascular: Regular Rate, Rhythm, No Edema, No Murmur Extremity: Normal Inspection, No Pedal Edema Neurologic/Psychiatric: Alert, Oriented x3, No Motor/Sensory Deficits, Normal Mood/Affect, nut tapper II-XII Norm as Tested Skin: Normal Color, Warm/Dry Progress/Results/Core Measures Results/Orders Lab Results Laboratory Tests Test 09/13/17 01:37 Range/Units White Blood Count 7.5 4.3-11.0 10^3/uL Red Blood Count 4.18 L 4.35-5.85 10^6/uL Hemoglobin 10.6 L 11.5-16.0 G/DL Hematocrit 34 L 35-52 % Mean Corpuscular Volume 81 80-99 FL Mean Corpuscular Hemoglobin 25 25-34 PG Mean Corpuscular Hemoglobin Concent 31 L 32-36 G/DL Red Cell Distribution Width 19.2 H 10.0-14.5 % Platelet Count 317 130-400 10^3/uL Mean Platelet Volume 10.6 H 7.4-10.4 FL Sodium Level 139 135-145 MMOL/L Potassium Level 4.0 3.6-5.0 MMOL/L Chloride Level 106 98-107 MMOL/L Carbon Dioxide Level 22 21-32 MMOL/L Anion Gap 11 5-14 MMOL/L Blood Urea Nitrogen 25 H 7-18 MG/DL Creatinine 1.11 0.60-1.30 MG/DL Estimat Glomerular Filtration Rate 49 BUN/Creatinine Ratio 23 Glucose Level 95 70-105 MG/DL Calcium Level 9.5 8.5-10.1 MG/DL My Orders Orders - BABAK PINEDO MD Saline Lock/Iv-Start (09/13/17 02:10) Basic Metabolic Panel (09/13/17 02:10) Cbc No Diff (09/13/17 02:10) Ekg Tracing (09/13/17 02:11) Monitor-Rhythm Ecg Trace Only (09/13/17 02:11) Vital Signs/I&O Vital Sign - Last 12Hours 09/13/17 09/13/17 01:27 02:44 Temp 98.0 98.0 Pulse 122 122 Resp 20 20 B/P (MAP) 140/95 (110) 140/95 (110) Pulse Ox 100 100 O2 Delivery Room Air Blood Pressure Mean: 110 Departure Impression Impression: Primary Impression: Paroxysmal A-fib Additional Impression: Anemia Qualified Codes: D64.9 - Anemia, unspecified Disposition: HOME, SELF-CARE Condition: Improved Departure-Patient Inst. Decision time for Depature: 02:33 Referrals: ANTHONY PERDOMO DO (PCP/Family) Primary Care Physician Patient Instructions: Atrial Fibrillation (DC) Add. Discharge Instructions: Continue with your medications as prescribed. Return to the ER if symptoms worsen. All discharge instructions reviewed with patient and/or family. Voiced understanding. BAABK PINEDO MD Sep 13, 2017 02:34
[2017-09-13 02:44] VITALS: BP 140/95
--- OUTSIDE RECORDS SUMMARY | 2017-09-13 10:01 | XMS REPORT | Clinical Summary ---
Author Author [facility] Organization [facility] Address Unknown Phone Unavailable Care Team Providers Care Jinriksha Driver Name Role Phone Amanda Ruffin MD Unavailable Bean Carrera MD Unavailable Anselmo Alex APRN Unavailable Unavailable Joyce Sahu MD PCP Matt York MD Unavailable Source Comments Some departments are not documenting in the electronic medical record. If you do not see the information that you expected, contact Release of Information in the Health Information Management department at [phone] for further assistance in locating additional records.[facility] Allergies Active Allergy Reactions Severity Noted [...]
--- OUTSIDE RECORDS SUMMARY | 2017-09-13 10:01 | XMS REPORT | Continuity of Care Document ---
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 Team Providers Care Teacher Asst Name Role Phone [employer] Unavailable Unavailable Problems Medications Allergies, Adverse Reactions, Alerts Immunizations Results Vital Signs Encounters Location Location Details Encounter Type Encounter Number Reason For Visit Attending Provider ADM Date DC Date Status Source O [id number] BENTLEY CHEATHAM 04/11/2011 04/11/2011 Active [facility] OUTPATIENT [id number] ENEIDA METZGER 04/12/20172016 Active [facility] O CARLTON RIVAS 08/16/2017 Active [facility] Procedures Plan of Care Social History Assessment and Plan Family History Advance Directives Functional Status
--- OUTSIDE RECORDS SUMMARY | 2017-09-13 10:04 | XMS REPORT | Continuity of Care Document ---
Author Author [facility] Address Unknown Phone Unavailable Allergies Active Description Code Type Severity Reaction Onset Reported/Identified Relationship to Patient Clinical Status Yes atenolol [id number] Drug Allergy Unknown N/A 04/05/2007 Yes Beta-Blockers (Beta-Adrenergic Bloc [id number] Drug Allergy Unknown N/A 05/2013 Yes atenolol [...] Ot 593.9 RENAL URETERAL DIS NOS 10/19/2012 JOYCE SAHU DO Ot 300.00 ANXIETY STATE NOS 10/19/2012 RIGO SAHU DOQUELINE S Ot 401.9 HYPERTENSION NOS 10/19/2012 RIGO SAHU DOQUELINE S Ot 427.31 ATRIAL FIBRILLATION 10/19/2012 RIGO SAHU DOQUELINE S Ot 530.81 ESOPHAGEAL REFLUX 10/24/2012 [...] Ot V58.69 OTH MED,LT,CURRENT USE 11/21/2012 BRAVO SAHU DOLINE S Ot 285.1 AC POSTHEMORRHAG ANEMIA 11/21/2012 RIGO SAHU DOQUELINE S Ot 300.00 ANXIETY STATE NOS 11/21/2012 RIGO SAHU DOQUELINE S Ot 401.9 HYPERTENSION NOS 11/21/2012 RIGO SAHU DOQUELINE S Ot 427.31 ATRIAL FIBRILLATION 11/21/2012 JOYCE SAHU DO S Ot 530.11 REFLUX ESOPHAGITIS 11/21/2012 RIGO SAHU DOQUELINE S Ot 530.81 ESOPHAGEAL REFLUX 11/21/2012 ORENDER DO, JOYCE S Ot 578.9 GASTROINTEST HEMORR NOS 11/21/2012 JOYCE SAHU DO Ot 593.9 RENAL URETERAL DIS NOS 11/21/2012 JOYCE SAHU DO Ot E934.2 ADV EFF 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S 12/07/2012 MARIE HAN DO Ot 558.9 NONINF GASTROENTERIT NEC 12/07/2012 MARIE HAN DO Ot 560.1 PARALYTIC ILEUS 12/07/2012 MARIE HAN DO Ot 786.05 SHORTNESS OF BREATH 12/07/2012 MARIE HAN DO Ot 789.06 ABDOMINAL PAIN, EPIGASTRIC 12/07/2012 MARIE HAN DO Ot V58.69 OTH MED,LT,CURRENT USE 04/22/2014 JOYCE SAHU DO Ot 401.9 HYPERTENSION NOS 04/22/2014 JOYCE SAHU DO Ot 427.31 ATRIAL FIBRILLATION 04/22/2014 JOYCE SAHU DO Ot V04.81 ND FOR PROPHYLACTIC VACCIN [...] 717.40 06/24/2014 Ot 427.31 06/24/2014 ORENDER DO, JOYCE S Ot 723.1 06/24/2014 ORENDER DO, JOYCE S Ot 724.2 06/24/2014 ORENDER DO, JOYCE S Ot 780.4 06/24/2014 ORENDER DO, JOYCE S Ot 348.89 06/24/2014 ORENDER DO, JOYCE S Ot 722.52 06/24/2014 ORENDER DO, JOYCE S Ot 723.1 06/24/2014 ORENDER DO, JOYCE S Ot 780.4 06/25/2014 GONZÁLEZ BRADEN, DAMON [...] BRADEN, DAMON Gunn Ot 433.30 07/27/2014 GONZÁLEZ BRADEN, DAMON Gunn Ot 785.9 07/27/2014 DAMON CLAUDIO MD Ot 786.50 09/10/2014 Ot 574.20 09/10/2014 Ot V72.81 09/10/2014 Ot V74.8 09/10/2014 Ot 715.96 09/10/2014 Ot 719.45 09/10/2014 Ot 786.09 09/10/2014 Ot 786.9 09/10/2014 Ot 786.09 09/10/2014 Ot 786.50 09/10/2014 Ot 786.09 09/10/2014 Ot 786.50 09/10/2014 Ot 241.0 09/10/2014 Ot 715.36 09/10/2014 Ot 717.40 09/10/2014 Ot 427.31 09/10/2014 ORENDER DO, JOYCE S Ot 723.1 09/10/2014 ORENDER DO, JOYCE S Ot 724.2 09/10/2014 ORENDER DO, JOYCE S Ot 780.4 09/10/2014 ORENDER DO, JOYCE S Ot 348.89 09/10/2014 ORENDER DO, JOYCE S Ot 722.52 09/10/2014 ORENDER DO, JOYCE S Ot 723.1 09/10/2014 ORENDER DO, JOYCE S Ot 780.4 09/10/2014 GONZÁLEZ BRADEN, DAMON Gunn Ot 401.9 09/10/2014 GONZÁLEZ BRADEN, DAMON Gunn Ot 427.31 09/10/2014 GONZÁLEZ BRADEN, DAMON Gunn Ot 433.10 09/10/2014 GONZÁLEZ BRADEN, DAMON Gunn Ot 433.30 09/10/2014 GONZÁLEZ BRADEN, DAMON Gunn Ot 785.9 09/10/2014 DAMON CLAUDIO MD Ot 786.50 09/10/2014 ORENDER DO, JOYCE S Ot 723.1 09/10/2014 ORENDER DO, JOYCE S Ot 724.2 09/10/2014 ORENDER DO, JOYCE S Ot 780.4 09/10/2014 ORENDER DO, JOYCE S Ot 348.89 09/10/2014 ORENDER DO, JOYCE S Ot 722.52 09/10/2014 ORENDER DO, JOYCE S Ot 723.1 09/10/2014 ORENDER DO, JOYCE S Ot 780.4 09/10/2014 GONZÁLEZ BRADEN, DAMON [...] 717.40 11/13/2014 Ot 427.31 11/13/2014 ORENDER DO, JOYCE S Ot 723.1 11/13/2014 ORENDER DO, JOYCE S Ot 724.2 11/13/2014 ORENDER DO, JOYCE S Ot 780.4 11/13/2014 ORENDER DO, JOYCE S Ot 348.89 11/13/2014 ORENDER DO, JOYCE S Ot 722.52 11/13/2014 ORENDER DO, JOYCE S Ot 723.1 11/13/2014 ORENDER DO, JOYCE S Ot 780.4 11/13/2014 GONZÁLEZ BRADEN, DAMON Gunn Ot 401.9 11/13/2014 GONZÁLEZ BRADEN, DAMON Gunn Ot 427.31 11/13/2014 GONZÁLEZ BRADEN, DAMON Gunn Ot 433.10 11/13/2014 GONZÁLEZ BRADEN, DAMON Gunn Ot 433.30 11/13/2014 GONZÁLEZ BRADEN, DAMON Gunn Ot 785.9 11/13/2014 DAMON CLAUDIO MD Ot 786.50 11/13/2014 MARGO JOHNSON APRN Ot 719.46 JOINT PAIN-L/LEG 11/13/2014 MARGO JOHNSON ACCOUNTS ADJUSTABLE CLERK Ot 844.9 SPRAIN OF KNEE LEG NOS 11/13/2014 MARGO JOHNSON ACCOUNTS ADJUSTABLE CLERK Ot E000.8 OTHER EXTERNAL CAUSE STATUS 11/13/2014 MARGO JOHNSON ACCOUNTS ADJUSTABLE CLERK Ot E888.9 FALL NOS 05/10/2015 KHRIS BRADEN, [...] NORMALLY 05/10/2015 BABAK PINEDO MD Ot Z79.01 BOOT LACE CUTTER MACHINE (CURRENT) USE OF 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 05/10/2015 BABAK PINEDO MD Ot Z85.89 PERSONAL HISTORY OF MALIGNANT NEOPLASM O 05/10/2015 BABAK PINEDO MD Ot Z90.49 ACQUIRED ABSENCE OF OTHER SPECIFIED PART 07/29/2015 KIKO BRADEN, BEST Molina Ot K62.5 07/29/2015 KIKO BRADEN, BEST Molina Ot Z01.818 09/28/2015 Ot 715.36 LOC OSTEOARTH NOS-L/LEG 09/28/2015 Ot 717.40 DERANG LAT MENISCUS NOS 09/28/2015 Ot 427.31 ATRIAL FIBRILLATION 09/28/2015 ORENDER DO, JOYCE S Ot 723.1 CERVICALGIA 09/28/2015 EDVINNDER DO, JOYCE S Ot 724.2 LUMBAGO 09/28/2015 EVDINNDER DO, JOYCE S Ot 780.4 DIZZINESS AND GIDDINESS 09/28/2015 ORENDER DO, JOYCE S Ot 348.89 OTHER CONDITIONS OF BRAIN 09/28/2015 ORENDER DO, JOYCE S Ot 722.52 LUMB/LUMBOSAC DISC DEGEN 09/28/2015 ORENDER DO, JOYCE S Ot 723.1 CERVICALGIA 09/28/2015 ORENDER DO, JOYCE S Ot 780.4 DIZZINESS AND GIDDINESS 09/28/2015 [...] 786.50 CHEST PAIN NOS 09/28/2015 ORENDER DO, JOYCE S Ot 348.89 OTHER CONDITIONS OF BRAIN 09/28/2015 ORENDER DO, JOYCE S Ot 722.52 LUMB/LUMBOSAC DISC DEGEN 09/28/2015 ORENDER DO, JOYCE S Ot 723.1 CERVICALGIA 09/28/2015 ORENDER DO, JOYCE S Ot 780.4 DIZZINESS AND GIDDINESS 09/28/2015 ORENDER DO, JOYCE S Ot 723.1 CERVICALGIA 09/28/2015 ORENDER DO, JOYCE S Ot 724.2 LUMBAGO 09/28/2015 ORENDER DO, JOYCE S Ot 780.4 DIZZINESS AND GIDDINESS 10/07/2015 ORENDER DO, JOYCE S Ot 723.1 CERVICALGIA 10/07/2015 ORENDER DO, JOYCE S Ot 724.2 LUMBAGO 10/07/2015 ORENDER DO, JOYCE S Ot 780.4 DIZZINESS AND GIDDINESS 10/07/2015 ORENDER DO, JOYCE S Ot 348.89 OTHER CONDITIONS OF BRAIN 10/07/2015 ORENDER DO, JOYCE S Ot 722.52 LUMB/LUMBOSAC DISC DEGEN 10/07/2015 EDVINNDER DO, JOYCE S Ot 723.1 CERVICALGIA 10/07/2015 JOYCE SAHU DO S Ot 780.4 DIZZINESS AND GIDDINESS [...] MD Ot 786.50 CHEST PAIN NOS 11/05/2015 JOYCE SAHU DO S Ot D62 ACUTE POSTHEMORRHAGIC ANEMIA 11/05/2015 JOYCE SAHU DO S Ot F41.9 ANXIETY DISORDER, UNSPECIFIED 11/05/2015 JOYCE SAHU DO S Ot G43.909 MIGRAINE, UNSP, NOT INTRACTABLE, WITHOUT 11/05/2015 BRAVO SAHU DOLINE S Ot I10 ESSENTIAL (PRIMARY) HYPERTENSION 11/05/2015 JOYCE SAHU DO S Ot I25.10 ATHSCL HEART DISEASE OF [place] CORONARY 11/05/2015 JOYCE SAHU DO S Ot I48.0 PAROXYSMAL ATRIAL FIBRILLATION 11/05/2015 BRAVO SAHU DOLINE S Ot K21.9 GASTRO-ESOPHAGEAL REFLUX DISEASE WITHOUT 11/05/2015 JOYCE SAHU DO S Ot K92.2 GASTROINTESTINAL HEMORRHAGE, UNSPECIFIED 11/05/2015 JOYCE SAHU DO S Ot M54.9 DORSALGIA, UNSPECIFIED 11/05/2015 BRAVO SAHU DOLINE S Ot R29.818 OTHER SYMPTOMS AND SIGNS INVOLVING THE N 11/05/2015 JOYCE SAHU DO S Ot R73.09 OTHER ABNORMAL GLUCOSE 11/05/2015 JOYCE SAHU DO S Ot Y84.8 [facility] MEDICAL PROCEDURES CAUSE ABN REACT/C 11/05/2015 JOYCE SAHU DO S Ot Z79.01 RETIREMENT (CURRENT) USE OF 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 11/05/2015 JOYCE SAHU DO S Ot Z85.848 PERSONAL HISTORY OF MALIGNANT NEOPLASM O 11/05/2015 BRAVO SAHU DOYANIV Ricci Ot Z92.21 PERSONAL HISTORY OF ANTINEOPLASTIC CHEMO 11/05/2015 CONOR PLATT JOYCE S Ot Z92.3 PERSONAL HISTORY OF IRRADIATION 11/05/2015 CONOR PLATT JOYCE S Ot D62 ACUTE POSTHEMORRHAGIC ANEMIA 11/05/2015 CONOR PLATTJOYCE Ot F41.9 ANXIETY DISORDER, UNSPECIFIED 11/05/2015 EDVINMORE PLATT OJYCE S Ot G43.909 MIGRAINE, UNSP, NOT INTRACTABLE, WITHOUT 11/05/2015 CONOR PLATT JOYCE S Ot I10 ESSENTIAL (PRIMARY) HYPERTENSION 11/05/2015 EDVINMORE PLATT JOYCE S Ot I25.10 ATHSCL HEART DISEASE OF [place] CORONARY 11/05/2015 EDVINMORE PLATT JOYCE S Ot I48.0 PAROXYSMAL ATRIAL FIBRILLATION 11/05/2015 EDVINMORE PLATTJOYCE Ot K21.9 GASTRO-ESOPHAGEAL REFLUX DISEASE WITHOUT 11/05/2015 EDVINMORE PLATT JOYCE S Ot K92.2 GASTROINTESTINAL HEMORRHAGE, UNSPECIFIED 11/05/2015 EDVINMORE PLATTRIGOJOYCE S Ot M54.9 DORSALGIA, UNSPECIFIED 11/05/2015 EDVINMORE PLATT JOYCE S Ot R29.818 OTHER SYMPTOMS AND SIGNS INVOLVING THE N 11/05/2015 CONOR PLATT JOYCE S Ot R73.09 OTHER ABNORMAL GLUCOSE 11/05/2015 EDVINMORE PLATT JOYCE S Ot Y84.8 OT MEDICAL PROCEDURES CAUSE ABN REACT/C 11/05/2015 EDVINMORE JOYCE PLATT Ot Z79.01 BOOT LACE CUTTER MACHINE (CURRENT) USE OF 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 11/05/2015 EDVINMORE PLATTJOYCE Ot Z85.848 PERSONAL HISTORY OF MALIGNANT NEOPLASM O 11/05/2015 EDVINMORE PLATTJOYCE Ot Z92.21 PERSONAL HISTORY OF ANTINEOPLASTIC CHEMO 11/05/2015 CONOR JOYCE Ot Z92.3 PERSONAL HISTORY OF IRRADIATION 11/06/2015 CONOR JOYCE Ot D62 ACUTE POSTHEMORRHAGIC ANEMIA 11/06/2015 JOYCE SAHU DO Ot F41.9 ANXIETY DISORDER, UNSPECIFIED 11/06/2015 JOYCE SAHU DO Ot G43.909 MIGRAINE, UNSP, NOT INTRACTABLE, WITHOUT 11/06/2015 JOYCE SAHU DO Ot I10 ESSENTIAL (PRIMARY) HYPERTENSION 11/06/2015 JOYCE SAHU DO Ot I25.10 ATHSCL HEART DISEASE OF [place] CORONARY 11/06/2015 JOYCE SAHU DO Ot I48.0 PAROXYSMAL ATRIAL FIBRILLATION 11/06/2015 JOYCE SAHU DO S Ot K21.9 GASTRO-ESOPHAGEAL REFLUX DISEASE WITHOUT 11/06/2015 JOYCE SAHU DO S Ot K44.9 DIAPHRAGMATIC HERNIA WITHOUT OBSTRUCTION 11/06/2015 JOYCE SAHU DO Ot K57.30 DVRTCLOS OF LG INT W/O PERFORATION OR AB 11/06/2015 CONOR PLATT JOYCE Ricci Ot K92.2 GASTROINTESTINAL HEMORRHAGE, UNSPECIFIED 11/06/2015 CONOR PLATT JOYCE Ricci Ot M54.9 DORSALGIA, UNSPECIFIED 11/06/2015 CONOR PLATT OJYCE S Ot R29.818 OTHER SYMPTOMS AND SIGNS INVOLVING THE N 11/06/2015 JOYCE SAHU DO Ot R73.09 OTHER ABNORMAL GLUCOSE 11/06/2015 JOYCE SAHU DO Ot Y84.8 [facility] MEDICAL PROCEDURES CAUSE ABN REACT/C 11/06/2015 CONOR PLATT JOYCE Ricci Ot Z79.01 BOOT LACE CUTTER MACHINE (CURRENT) USE OF 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 11/06/2015 CONOR PLATT JOYCE Ricci Ot Z85.848 PERSONAL HISTORY OF MALIGNANT NEOPLASM O 11/06/2015 CONOR PLATT JOYCE S Ot Z92.21 PERSONAL HISTORY OF ANTINEOPLASTIC CHEMO 11/06/2015 CONOR PLATT JOYCE S Ot Z92.3 PERSONAL HISTORY OF IRRADIATION [...] K92.2 GASTROINTESTINAL HEMORRHAGE, UNSPECIFIED 12/26/2015 ORENDER DO, JOYCE S Ot F41.9 ANXIETY DISORDER, UNSPECIFIED 12/26/2015 ORENDER DO, JOYCE S Ot I10 ESSENTIAL (PRIMARY) HYPERTENSION 12/26/2015 ORENDER DO, JOYCE S Ot I25.10 ATHSCL HEART DISEASE OF [place] CORONARY 12/26/2015 ORENDER DO, JOYCE S Ot I48.0 PAROXYSMAL ATRIAL FIBRILLATION 12/26/2015 ORENDER DO, JOYCE S Ot K21.9 GASTRO-ESOPHAGEAL REFLUX DISEASE WITHOUT 12/26/2015 ORENDER DO, JOYCE S Ot K59.00 CONSTIPATION, UNSPECIFIED 12/26/2015 ORENDER DO, JOYCE S Ot N39.0 URINARY TRACT INFECTION, SITE NOT SPECIF 12/26/2015 ORENDER DO, JOYCE S Ot R07.89 OTHER CHEST PAIN 12/26/2015 ORENDER DO, JOYCE S Ot F41.9 ANXIETY DISORDER, UNSPECIFIED 12/26/2015 ORENDER DO, JOYCE S Ot I10 ESSENTIAL (PRIMARY) HYPERTENSION 12/26/2015 ORENDER DO, JOYCE S Ot I25.10 ATHSCL HEART DISEASE OF [place] CORONARY 12/26/2015 ORENDER DO, JOCYE S Ot I48.0 PAROXYSMAL ATRIAL FIBRILLATION 12/26/2015 ORENDER DO, JOYCE S Ot K21.9 GASTRO-ESOPHAGEAL REFLUX DISEASE WITHOUT 12/26/2015 ORENDER DO, JOYCE S Ot K59.00 CONSTIPATION, UNSPECIFIED 12/26/2015 ORENDER DO, JOYCE S Ot N39.0 URINARY TRACT INFECTION, SITE NOT SPECIF 12/26/2015 ORENDER DO, JOYCE S Ot R07.89 OTHER CHEST PAIN 01/05/2016 BRAVO SAHU DOLINE S Ot Z12.31 ENCNTR SCREEN MAMMOGRAM FOR MALIGNANT NE 01/06/2016 CONOR PLATT, JOYCE S Ot Z12.31 ENCNTR SCREEN MAMMOGRAM FOR MALIGNANT NE 01/11/2016 CONOR PLATT, JOYCE S Ot Z12.31 ENCNTR SCREEN MAMMOGRAM FOR MALIGNANT NE 01/26/2016 CONOR PLATT, JOYCE S Ot Z12.31 ENCNTR SCREEN MAMMOGRAM FOR MALIGNANT NE 02/29/2016 Ot 715.36 LOC OSTEOARTH NOS-L/LEG 02/29/2016 Ot 717.40 DERANG LAT MENISCUS NOS 02/29/2016 Ot 427.31 ATRIAL FIBRILLATION 02/29/2016 BRAVO SAHU DOLINE S Ot 723.1 CERVICALGIA 02/29/2016 BRAVO SAHU DOLINE S Ot 724.2 LUMBAGO 02/29/2016 CONOR PLATT, JOYCE S Ot 780.4 DIZZINESS AND GIDDINESS 02/29/2016 CONOR PLATT, JOYCE S Ot 348.89 OTHER CONDITIONS OF BRAIN 02/29/2016 CONOR PLATT, JOYCE S Ot 722.52 LUMB/LUMBOSAC DISC DEGEN 02/29/2016 CONOR PLATT, JOYCE S Ot 723.1 CERVICALGIA 02/29/2016 CONOR PLATT, JOYCE S Ot 780.4 DIZZINESS AND GIDDINESS 02/29/2016 [...] K92.2 GASTROINTESTINAL HEMORRHAGE, UNSPECIFIED 02/29/2016 ORENDER DO, JOYCE S Ot Z12.31 ENCNTR SCREEN MAMMOGRAM FOR MALIGNANT NE 03/01/2016 ORENDER DO, JOYCE S Ot D64.9 ANEMIA, UNSPECIFIED 03/01/2016 ORENDER DO, JOYCE S Ot R06.00 DYSPNEA, UNSPECIFIED 03/01/2016 ORENDER DO, JOYCE S Ot R53.83 OTHER FATIGUE 03/01/2016 ORENDER DO, JOYCE S Ot R60.9 EDEMA, UNSPECIFIED 03/01/2016 ORENDER DO, JOYCE S Ot R73.02 IMPAIRED GLUCOSE TOLERANCE (ORAL) 03/22/2016 ORENDER DO, JOYCE S Ot D64.9 ANEMIA, UNSPECIFIED 03/22/2016 ORENDER DO, JOYCE S Ot R06.00 DYSPNEA, UNSPECIFIED 03/22/2016 ORENDER DO, JOYCE S Ot R53.83 OTHER FATIGUE 03/22/2016 ORENDER DO, JOYCE S Ot R60.9 EDEMA, UNSPECIFIED 03/22/2016 ORENDER DO, JOYCE S Ot R73.02 IMPAIRED GLUCOSE TOLERANCE (ORAL) 09/12/2016 Ot 427.31 ATRIAL FIBRILLATION 09/12/2016 ORENDER DO, JOYCE S Ot 723.1 CERVICALGIA 09/12/2016 ORENDER DO, JOYCE S Ot 724.2 LUMBAGO 09/12/2016 ORENDER DO, JOYCE S Ot 780.4 DIZZINESS AND GIDDINESS 09/12/2016 ORENDER DO, JOYCE S Ot 348.89 OTHER CONDITIONS OF BRAIN 09/12/2016 ORENDER DO, JOYCE S Ot 722.52 LUMB/LUMBOSAC DISC DEGEN 09/12/2016 ORENDER DO, JOYCE S Ot 723.1 CERVICALGIA 09/12/2016 ORENDER DO, JOYCE S Ot 780.4 DIZZINESS AND GIDDINESS 09/12/2016 [...] K92.2 GASTROINTESTINAL HEMORRHAGE, UNSPECIFIED 09/12/2016 ORENDER DO, JOYCE S Ot Z12.31 ENCNTR SCREEN MAMMOGRAM FOR MALIGNANT NE 09/12/2016 ORENDER DO, JOYCE S Ot D64.9 ANEMIA, UNSPECIFIED 09/12/2016 ORENDER DO, JOYCE S Ot R06.00 DYSPNEA, UNSPECIFIED 09/12/2016 ORENDER DO, JOYCE S Ot R53.83 OTHER FATIGUE 09/12/2016 ORENDER DO, JOYCE S Ot R60.9 EDEMA, UNSPECIFIED 09/12/2016 ORENDER DO, JOYCE S Ot R73.02 IMPAIRED GLUCOSE TOLERANCE (ORAL) [...] DIABETES MELLITUS WITHOUT COMPLIC 12/08/2016 MARGO JOHNSON ACCOUNTS ADJUSTABLE CLERK Ot I10 ESSENTIAL (PRIMARY) HYPERTENSION 12/08/2016 MARGO JOHNSON ACCOUNTS ADJUSTABLE CLERK Ot I48.91 UNSPECIFIED ATRIAL FIBRILLATION 12/08/2016 MARGO JOHNSON ACCOUNTS ADJUSTABLE CLERK Ot K21.9 GASTRO-ESOPHAGEAL REFLUX DISEASE WITHOUT 12/08/2016 MARGO JOHNSON ACCOUNTS ADJUSTABLE CLERK Ot K59.00 CONSTIPATION, UNSPECIFIED 12/08/2016 MARGO JOHNSON ACCOUNTS ADJUSTABLE CLERK Ot Z79.899 OTHER RETIREMENT (CURRENT) DRUG THERAPY 03/11/2017 BABAK PINEDO MD [...] COLLAPSE 2017 HEATHER LUKE MD Ot Z79.01 RETIREMENT (CURRENT) USE OF 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 2017 HEATHER LUKE [...] COLLAPSE 03/14/2017 HEATHER LUKE MD Ot Z79.01 BOOT LACE CUTTER MACHINE (CURRENT) USE OF 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 03/14/2017 HEATHER LUKE [...] COLLAPSE 03/18/2017 HEATHER LUKE MD Ot Z79.01 BOOT LACE CUTTER MACHINE (CURRENT) USE OF 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 03/18/2017 HEATHER LUKE [...] 03/31/2017 OLAMIDE HAN DOA Ron Ot Z79.01 BOOT LACE CUTTER MACHINE (CURRENT) USE OF 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 03/31/2017 OLAMIDE HAN DOA Ron Ot Z82.49 FAMILY HX OF ISCHEM HEART DIS AND OTH DI 03/31/2017 OLAMIDE HAN DOA Ron Ot Z86.018 PERSONAL HISTORY OF OTHER BENIGN NEOPLAS 03/31/2017 MARIE AHN DO Ot Z87.19 PERSONAL HISTORY OF OTHER [...] MARIE K Ot K59.00 CONSTIPATION, UNSPECIFIED 04/03/2017 GULILE DO MARIE K Ot R42 DIZZINESS AND GIDDINESS 04/03/2017 GUILLE OLAMIDEA K Ot Z79.01 BOOT LACE CUTTER MACHINE (CURRENT) USE OF 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 04/03/2017 GUILLE OLAMIDEA [...] Ot K21.9 GASTRO-ESOPHAGEAL REFLUX DISEASE WITHOUT 04/09/2017 MARIE HAN DO Ot K59.00 CONSTIPATION, UNSPECIFIED 04/09/2017 MARIE HAN DO Ot R42 DIZZINESS AND GIDDINESS 04/09/2017 GUILLE PLATT MARIE Velasquez Ot Z79.01 BOOT LACE CUTTER MACHINE (CURRENT) USE OF 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 04/09/2017 GUILLE PLATT [...] ACQUIRED ABSENCE OF BOTH CERVIX AND UTER 07/02/2017 DEMOND BRADEN, JH Ricci Ot D64.9 ANEMIA, UNSPECIFIED 07/02/2017 DEMOND BRADEN, JH Ricci Ot E11.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 07/02/2017 DEMOND BRADEN, JH Ricci Ot F41.9 ANXIETY DISORDER, UNSPECIFIED 07/02/2017 DEMOND BRADEN, JH Ricci Ot I48.0 PAROXYSMAL ATRIAL FIBRILLATION 07/02/2017 DEMOND BRADEN, JH Ricci Ot K21.9 GASTRO-ESOPHAGEAL REFLUX DISEASE WITHOUT 07/02/2017 DEMOND BRADEN, JH Ricci Ot R00.0 TACHYCARDIA, UNSPECIFIED 07/02/2017 DEMOND BRADEN, JH Ricci Ot Z82.49 FAMILY HX OF ISCHEM HEART DIS AND OTH DI 07/02/2017 DEMOND BRADEN, JH Ricci Ot Z85.89 PERSONAL HISTORY OF MALIGNANT NEOPLASM O 07/02/2017 DEMOND BRADEN, JH Ricci Ot Z87.19 PERSONAL HISTORY OF OTHER DISEASES OF TH 07/02/2017 DEMOND BRADEN, JH Ricci Ot Z87.440 PERSONAL HISTORY OF URINARY (TRACT) INFE 07/02/2017 DEMOND BRADEN, JH Ricci Ot Z87.59 PERSONAL HISTORY OF COMP OF PREG, CHLDBR 07/02/2017 DEMOND BRADEN, JH Ricci Ot Z90.49 ACQUIRED ABSENCE OF OTHER SPECIFIED PART 07/02/2017 JH LAGOS MD Ot Z90.710 ACQUIRED ABSENCE OF BOTH CERVIX AND UTER 07/02/2017 JH LAGOS MD Ot Z92.21 PERSONAL HISTORY OF ANTINEOPLASTIC CHEMO 07/02/2017 DEMOND BRADEN, JH Ricci Ot Z92.3 PERSONAL HISTORY OF IRRADIATION 07/02/2017 Ot 427.31 ATRIAL FIBRILLATION 07/02/2017 ORENDER DO, JOYCE S Ot 723.1 CERVICALGIA 07/02/2017 ORENDER DO, JOYCE S Ot 724.2 LUMBAGO 07/02/2017 ORENDER DO, JOYCE S Ot 780.4 DIZZINESS AND GIDDINESS 07/02/2017 ORENDER DO, JOYCE S Ot 348.89 OTHER CONDITIONS OF BRAIN 07/02/2017 ORENDER DO, JOYCE S Ot 722.52 LUMB/LUMBOSAC DISC DEGEN 07/02/2017 ORENDER DO, JOYCE S Ot 723.1 CERVICALGIA 07/02/2017 ORENDER DO, JOYCE S Ot 780.4 DIZZINESS AND GIDDINESS 07/02/2017 DAMNO CLAUDIO MD Ot 401.9 HYPERTENSION NOS 07/02/2017 DAMON CLAUDIO MD Ot 427.31 ATRIAL FIBRILLATION 07/02/2017 DAMON CLAUDIO MD Ot 433.10 CAROTID ARTERY OCCLUSION W O CEREBRAL IN 07/02/2017 DAMON CLAUDIO MD Ot 433.30 MULT BILTRAL ARTERY OCCLUSION WO CEREBRA 07/02/2017 DAMON CLAUDIO MD Ot 785.9 CARDIOVAS SYS SYMP NEC 07/02/2017 DAMON CLAUDIO MD Ot 786.50 CHEST PAIN NOS 07/02/2017 KIKO BRADEN, BEST Molina Ot K62.5 HEMORRHAGE OF ANUS AND RECTUM 07/02/2017 KIKO BRADEN, BEST Molina Ot Z01.818 ENCOUNTER FOR OTHER PREPROCEDURAL EXAMIN 07/02/2017 BEST HOOVER MD Ot D64.9 ANEMIA, UNSPECIFIED 07/02/2017 BEST HOOVER MD Ot K44.9 DIAPHRAGMATIC HERNIA WITHOUT OBSTRUCTION 07/02/2017 BEST HOOVER MD Ot K92.2 GASTROINTESTINAL HEMORRHAGE, UNSPECIFIED 07/02/2017 EDVINNDER DO, JOYCE S Ot Z12.31 ENCNTR SCREEN MAMMOGRAM FOR MALIGNANT NE 07/02/2017 ORENDER DO, JOYCE S Ot D64.9 ANEMIA, UNSPECIFIED 07/02/2017 ORENDER DO, JOYCE S Ot R06.00 DYSPNEA, UNSPECIFIED 07/02/2017 ORENDER DO, JOYCE S Ot R53.83 OTHER FATIGUE 07/02/2017 ORENDER DO, JOYCE S Ot R60.9 EDEMA, UNSPECIFIED 07/02/2017 ORENDER DO, JOYCE S Ot R73.02 IMPAIRED GLUCOSE TOLERANCE (ORAL) 07/02/2017 GONZÁLEZ BRADEN, DAMON Gunn Ot F41.9 ANXIETY DISORDER, UNSPECIFIED 07/02/2017 GONZÁLEZ BRADEN, DAMON Gunn Ot I10 ESSENTIAL (PRIMARY) HYPERTENSION 07/02/2017 GONZÁLEZ BRADEN, DAMON Gunn Ot I48.0 PAROXYSMAL ATRIAL FIBRILLATION 07/02/2017 DAMON CLAUDIO MD Ot K92.2 GASTROINTESTINAL HEMORRHAGE, UNSPECIFIED 07/02/2017 DAMON CLAUDIO MD Ot R07.89 OTHER CHEST PAIN 07/04/2017 DEMOND BRADEN, JH Ricci Ot D64.9 ANEMIA, UNSPECIFIED 07/04/2017 DEMOND BRADEN, JH Ricci Ot E11.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 07/04/2017 JH LAGOS MD, Ot F41.9 ANXIETY DISORDER, UNSPECIFIED 07/04/2017 JH LAGOS MD Ot I48.0 PAROXYSMAL ATRIAL FIBRILLATION 07/04/2017 JH LAGOS MD Ot K21.9 GASTRO-ESOPHAGEAL REFLUX DISEASE WITHOUT 07/04/2017 JH LAGOS MD Ot R00.0 TACHYCARDIA, UNSPECIFIED 07/04/2017 DEMOND BRADEN, JH Ricci Ot Z82.49 FAMILY HX OF ISCHEM HEART DIS AND OTH DI 07/04/2017 JH LAGOS MD Ot Z85.89 PERSONAL HISTORY OF MALIGNANT NEOPLASM O 07/04/2017 JH LAGOS MD Ot Z87.19 PERSONAL HISTORY OF OTHER DISEASES OF TH 07/04/2017 JH LAGOS MD Ot Z87.440 PERSONAL HISTORY OF URINARY (TRACT) INFE 07/04/2017 JH LAGOS MD Ot Z87.59 PERSONAL HISTORY OF COMP OF PREG, CHLDBR 07/04/2017 JH LAGOS MD Ot Z90.49 ACQUIRED ABSENCE OF OTHER SPECIFIED PART 07/04/2017 JH LAGOS MD S Ot Z90.710 ACQUIRED ABSENCE OF BOTH CERVIX AND UTER 07/04/2017 DEMOND BRADEN, JH S Ot Z92.21 PERSONAL HISTORY OF ANTINEOPLASTIC CHEMO 07/04/2017 DEMOND BRADEN, JH S Ot Z92.3 PERSONAL HISTORY OF IRRADIATION 08/07/2017 DAMON CLAUDIO MD Ot I48.0 PAROXYSMAL ATRIAL FIBRILLATION 08/07/2017 DAMON CLAUDIO MD Ot K92.2 GASTROINTESTINAL HEMORRHAGE, UNSPECIFIED 08/07/2017 DAMON CLAUDIO MD Ot N28.9 DISORDER OF KIDNEY AND URETER, UNSPECIFI 08/07/2017 DAMON CLAUDIO MD Ot R00.2 PALPITATIONS 08/07/2017 DAMON CLAUDIO MD Ot R07.89 OTHER CHEST PAIN 08/13/2017 DAMON CLAUDIO MD Ot I48.0 PAROXYSMAL ATRIAL FIBRILLATION 08/13/2017 DAMON CLAUDIO MD Ot K92.2 GASTROINTESTINAL HEMORRHAGE, UNSPECIFIED 08/13/2017 DAMON CLAUDIO MD Ot N28.9 DISORDER OF KIDNEY AND URETER, UNSPECIFI 08/13/2017 DAMON CLAUDIO MD Ot R00.2 PALPITATIONS 08/13/2017 DAMON CLAUDIO MD Ot R07.89 OTHER CHEST PAIN 08/20/2017 DAMON CLAUDIO MD Ot I48.0 PAROXYSMAL ATRIAL FIBRILLATION 08/20/2017 DAMON CLAUDIO MD Ot K92.2 GASTROINTESTINAL HEMORRHAGE, UNSPECIFIED 08/20/2017 DAMON CLAUDIO MD Ot N28.9 DISORDER OF KIDNEY AND URETER, UNSPECIFI 08/20/2017 DAMON CLAUDIO MD Ot R00.2 PALPITATIONS 08/20/2017 DAMON CLAUDIO MD Ot R07.89 OTHER CHEST PAIN 08/27/2017 JOYCE SAHU DO Ot Z12.31 ENCNTR SCREEN MAMMOGRAM FOR MALIGNANT NE 09/04/2017 JOYCE SAHU DO S Ot D64.9 ANEMIA, UNSPECIFIED 09/04/2017 JOYCE SAHU DO Ot F41.9 ANXIETY DISORDER, UNSPECIFIED 09/04/2017 JOYCE SAHU DO S Ot I10 ESSENTIAL (PRIMARY) HYPERTENSION 09/04/2017 BRAVO SAHU DOLINE S Ot I48.0 PAROXYSMAL ATRIAL FIBRILLATION 09/04/2017 ORENDER DO, JOYCE S Ot I65.23 OCCLUSION AND STENOSIS OF BILATERAL MORENO 09/04/2017 ORENDER DO, JOYCE S Ot K21.9 GASTRO-ESOPHAGEAL REFLUX DISEASE WITHOUT 09/04/2017 ORENDER DO, JOYCE S Ot K86.9 DISEASE OF PANCREAS, UNSPECIFIED 09/04/2017 ORENDER DO, JOYCE S Ot K92.2 GASTROINTESTINAL HEMORRHAGE, UNSPECIFIED 09/04/2017 ORENDER DO, JOYCE S Ot R73.03 PREDIABETES 09/04/2017 ORENDER DO, JOYCE S Ot Z82.49 FAMILY HX OF ISCHEM HEART DIS AND OTH DI 09/04/2017 ORENDER DO, JOYCE S Ot Z85.830 PERSONAL HISTORY OF MALIGNANT NEOPLASM O 09/04/2017 EDVINNDER DO, JOYCE S Ot Z92.21 PERSONAL HISTORY OF ANTINEOPLASTIC CHEMO 09/04/2017 EDVINND , JOYCE S Ot Z92.3 PERSONAL HISTORY OF IRRADIATION 09/04/2017 EDVINNDER DO, JOYCE S Ot D64.9 ANEMIA, UNSPECIFIED 09/04/2017 ORENDER DO, JOYCE S Ot F41.9 ANXIETY DISORDER, UNSPECIFIED 09/04/2017 EDVINNDER DO, JOYCE S Ot I10 ESSENTIAL (PRIMARY) HYPERTENSION 09/04/2017 EDVINNDER DO, JOYCE S Ot I48.0 PAROXYSMAL ATRIAL FIBRILLATION 09/04/2017 EDVINNDER DO, JOYCE S Ot I65.23 OCCLUSION AND STENOSIS OF BILATERAL MORENO 09/04/2017 ORENDER DO, JOYCE S Ot K21.9 GASTRO-ESOPHAGEAL REFLUX DISEASE WITHOUT 09/04/2017 ORENDER DO, JOYCE S Ot K86.9 DISEASE OF PANCREAS, UNSPECIFIED 09/04/2017 ORENDER DO, JOYCE S Ot K92.2 GASTROINTESTINAL HEMORRHAGE, UNSPECIFIED 09/04/2017 ORENDER DO, JOYCE S Ot R73.03 PREDIABETES 09/04/2017 ORENDER DO, JOYCE S Ot Z82.49 FAMILY HX OF ISCHEM HEART DIS AND OTH DI 09/04/2017 ORENDER DO, JOYCE S Ot Z85.830 PERSONAL HISTORY OF MALIGNANT NEOPLASM O 09/04/2017 JOYCE SAHU DO Ot Z92.21 PERSONAL HISTORY OF ANTINEOPLASTIC CHEMO 09/04/2017 JOYCE SAHU DO Ot Z92.3 PERSONAL HISTORY OF IRRADIATION Procedures Code Description Performed By Performed On 45.16 ESOPHAGOGASTRODUODENOSCOPY [ EGD] W/CLOSE 11/20/2012 45.23 COLONOSCOPY 11/20/2012 20595 [employer] 05/29/2014 56604 SLEEP STUDY ([facility] SLEEP STUDY) 06/22/2014 [id number] INSPECTION OF UPPER INTESTINAL TRACT, EN 11/05/2015 [id number] INSPECTION OF LOWER INTESTINAL TRACT, EN 11/05/2015 [...] ABO+Rh group AP NRG Transfusion band number [id number] NRG Blood group antibody screen NEGATIVE NRG [...] <=0.05 miu/l (units/ volume) 3.10 u[iU]/mL 0.35-4.94 Complete blood count (CBC) with automated white blood cell (WBC) differential - 07/02/17 15:20 Blood leukocytes automated count (number/volume) 7.4 10*3/uL 4.3-11.0 Blood erythrocytes automated count (number/volume) 3.98 10*6/uL 4.35-5.85 Venous blood hemoglobin measurement (mass/volume) 10.7 g/dL 11.5-16.0 Blood hematocrit (volume fraction) 33 % 35-52 Automated erythrocyte mean corpuscular volume 83 [foz_us] 80-99 Automated erythrocyte mean corpuscular hemoglobin (mass per erythrocyte) 27 pg 25-34 Automated erythrocyte mean corpuscular hemoglobin concentration measurement ( mass/volume) 32 g/dL 32-36 Automated erythrocyte distribution width ratio 16.6 % 10.0-14.5 Automated blood platelet count (count/volume) 346 10*3/uL 130-400 Automated blood platelet mean volume measurement 9.8 [foz_us] 7.4-10.4 Automated blood neutrophils/100 leukocytes 43 % 42-75 Automated blood lymphocytes/100 leukocytes 45 % 12-44 Blood monocytes/100 leukocytes 10 % 0-12 Automated blood eosinophils/100 leukocytes 1 % 0-10 Automated blood basophils/100 leukocytes 0 % 0-10 Blood neutrophils automated count (number/volume) 3.2 10*3 1.8-7.8 Blood lymphocytes automated count (number/volume) 3.4 10*3 1.0-4.0 Blood monocytes automated count (number/volume) 0.8 10*3 0.0-1.0 Automated eosinophil count 0.1 10*3/uL 0.0-0.3 Automated blood basophil count (count/volume) 0.0 10*3/uL 0.0-0.1 Comprehensive metabolic panel - 07/02/17 15:20 Serum or plasma sodium measurement (moles/volume) 140 mmol/L 135-145 Serum or plasma potassium measurement (moles/volume) 3.5 mmol/L 3.6-5.0 Serum or plasma chloride measurement (moles/volume) 105 mmol/L 98-107 Carbon dioxide 21 mmol/L 21-32 Serum or plasma anion gap determination (moles/volume) 14 mmol/L 5-14 Serum or plasma urea nitrogen measurement (mass/volume) 31 mg/dL 7-18 Serum or plasma creatinine measurement (mass/volume) 1.15 mg/dL 0.60-1.30 Serum or plasma urea nitrogen/creatinine mass ratio 27 NRG Serum or plasma creatinine measurement with calculation of estimated glomerular filtration rate 47 NRG Serum or plasma glucose measurement (mass/volume) 116 mg/dL 70-105 Serum or plasma calcium measurement (mass/volume) 9.9 mg/dL 8.5-10.1 Serum or plasma total bilirubin measurement (mass/volume) 0.5 mg/dL 0.1-1.0 Serum or plasma alkaline phosphatase measurement (enzymatic activity/volume) 103 U/L 40-136 Serum or plasma aspartate aminotransferase measurement (enzymatic activity/ volume) 17 U/L 5-34 Serum or plasma alanine aminotransferase measurement (enzymatic activity/volume ) 17 U/L 0-55 Serum or plasma protein measurement (mass/volume) 8.7 g/dL 6.4-8.2 Serum or plasma albumin measurement (mass/volume) 4.4 g/dL 3.2-4.5 Magnesium - 07/02/17 15:20 Magnesium 2.0 mg/dL 1.8-2.4 PT panel in platelet poor plasma by coagulation assay - 07/02/17 15:20 Prothrombin time (PT) in platelet poor plasma by coagulation assay 13.7 s 12.2-14.7 INR in platelet poor plasma or blood by coagulation assay 1.0 0.8-1.4 Activated partial thromboplastin time (aPTT) in platelet poor plasma bycoagulation assay - 07/02/17 15:20 Activated partial thromboplastin time (aPTT) in platelet poor plasma bycoagulation assay 30 s 24-35 Serum or plasma troponin i.cardiac measurement (mass/volume) - 07/02/17 15:20 Serum or plasma troponin i.cardiac measurement (mass/volume) < ng/ mL <0.30 Myoglobin, serum - 07/02/17 15:20 Myoglobin, serum 80.2 ng/mL 10.0-92.0 Complete blood count (CBC) with automated white blood cell (WBC) differential - 09/03/17 11:00 Blood leukocytes automated count (number/volume) 5.2 10*3/uL 4.3-11.0 Blood erythrocytes automated count (number/volume) 3.00 10*6/uL 4.35-5.85 Venous blood hemoglobin measurement (mass/volume) 7.0 g/dL 11.5-16.0 Blood hematocrit (volume fraction) 24 % 35-52 Automated erythrocyte mean corpuscular volume 80 [foz_us] 80-99 Automated erythrocyte mean corpuscular hemoglobin (mass per erythrocyte) 23 pg 25-34 Automated erythrocyte mean corpuscular hemoglobin concentration measurement ( mass/volume) 29 g/dL 32-36 Automated erythrocyte distribution width ratio 16.3 % 10.0-14.5 Automated blood platelet count (count/volume) 347 10*3/uL 130-400 Automated blood platelet mean volume measurement 9.5 [foz_us] 7.4-10.4 Automated blood neutrophils/100 leukocytes 49 % 42-75 Automated blood lymphocytes/100 leukocytes 36 % 12-44 Blood monocytes/100 leukocytes 11 % 0-12 Automated blood eosinophils/100 leukocytes 3 % 0-10 Automated blood basophils/100 leukocytes 1 % 0-10 Blood neutrophils automated count (number/volume) 2.6 10*3 1.8-7.8 Blood lymphocytes automated count (number/volume) 1.9 10*3 1.0-4.0 Blood monocytes automated count (number/volume) 0.6 10*3 0.0-1.0 Automated eosinophil count 0.1 10*3/uL 0.0-0.3 Automated blood basophil count (count/volume) 0.0 10*3/uL 0.0-0.1 PT panel in platelet poor plasma by coagulation assay - 09/03/17 11:00 Prothrombin time (PT) in platelet poor plasma by coagulation assay 24.5 s 12.2-14.7 INR in platelet poor plasma or blood by coagulation assay 2.2 0.8-1.4 Activated partial thromboplastin time (aPTT) in platelet poor plasma bycoagulation assay - 09/03/17 11:00 Activated partial thromboplastin time (aPTT) in platelet poor plasma bycoagulation assay 37 s 24-35 Comprehensive metabolic panel - 09/03/17 11:00 Serum or plasma sodium measurement (moles/volume) 140 mmol/L 135-145 Serum or plasma potassium measurement (moles/volume) 3.9 mmol/L 3.6-5.0 Serum or plasma chloride measurement (moles/volume) 107 mmol/L 98-107 Carbon dioxide 27 mmol/L 21-32 Serum or plasma anion gap determination (moles/volume) 6 mmol/L 5-14 Serum or plasma urea nitrogen measurement (mass/volume) 19 mg/dL 7-18 Serum or plasma creatinine measurement (mass/volume) 1.00 mg/dL 0.60-1.30 Serum or plasma urea nitrogen/creatinine mass ratio 19 NRG Serum or plasma creatinine measurement with calculation of estimated glomerular filtration rate 56 NRG Serum or plasma glucose measurement (mass/volume) 113 mg/dL 70-105 Serum or plasma calcium measurement (mass/volume) 9.2 mg/dL 8.5-10.1 Serum or plasma total bilirubin measurement (mass/volume) 0.5 mg/dL 0.1-1.0 Serum or plasma alkaline phosphatase measurement (enzymatic activity/volume) 89 U/L 40-136 Serum or plasma aspartate aminotransferase measurement (enzymatic activity/ volume) 30 U/L 5-34 Serum or plasma alanine aminotransferase measurement (enzymatic activity/volume ) 38 U/L 0-55 Serum or plasma protein measurement (mass/volume) 6.8 g/dL 6.4-8.2 Serum or plasma albumin measurement (mass/volume) 4.0 g/dL 3.2-4.5 Magnesium - 09/03/17 11:00 Magnesium 2.1 mg/dL 1.8-2.4 Serum or plasma lithium measurement (moles/volume) - 09/03/17 11:00 BNP level 369.7 pg/mL <100.0 Serum or plasma troponin i.cardiac measurement (mass/volume) - 09/03/17 11:00 Serum or plasma troponin i.cardiac measurement (mass/volume) < ng/ mL <0.30 RED CELLS LEUKO REDUCED AS1 - 09/03/17 11:30 RED CELLS LEUKO REDUCED AS1 TRANSFUSED 09/03/17 1752 [facility] Blood type T Indirect antibody screen panel - 09/03/17 11:30 ABO+Rh group AP [facility] Transfusion band number [id number] [facility] Blood group antibody screen NEGATIVE [facility] Whole blood hemoglobin and hematocrit panel - 09/03/17 22:55 Venous blood hemoglobin measurement (mass/volume) 8.4 g/dL 11.5-16.0 Blood hematocrit (volume fraction) 28 % 35-52 Complete blood count (CBC) with automated white blood cell (WBC) differential - 09/04/17 05:50 Blood leukocytes automated count (number/volume) 5.9 10*3/uL 4.3-11.0 Blood erythrocytes automated count (number/volume) 3.34 10*6/uL 4.35-5.85 Venous blood hemoglobin measurement (mass/volume) 8.3 g/dL 11.5-16.0 Blood hematocrit (volume fraction) 27 % 35-52 Automated erythrocyte mean corpuscular volume 80 [foz_us] 80-99 Automated erythrocyte mean corpuscular hemoglobin (mass per erythrocyte) 25 pg 25-34 Automated erythrocyte mean corpuscular hemoglobin concentration measurement ( mass/volume) 31 g/dL 32-36 Automated erythrocyte distribution width ratio 16.7 % 10.0-14.5 Automated blood platelet count (count/volume) 297 10*3/uL 130-400 Automated blood platelet mean volume measurement 10.4 [foz_us] 7.4-10.4 Automated blood neutrophils/100 leukocytes 51 % 42-75 Automated blood lymphocytes/100 leukocytes 33 % 12-44 Blood monocytes/100 leukocytes 12 % 0-12 Automated blood eosinophils/100 leukocytes 3 % 0-10 Automated blood basophils/100 leukocytes 1 % 0-10 Blood neutrophils automated count (number/volume) 3.0 10*3 1.8-7.8 Blood lymphocytes automated count (number/volume) 1.9 10*3 1.0-4.0 Blood monocytes automated count (number/volume) 0.7 10*3 0.0-1.0 Automated eosinophil count 0.2 10*3/uL 0.0-0.3 Automated blood basophil count (count/volume) 0.0 10*3/uL 0.0-0.1 Comprehensive metabolic panel - 09/04/17 05:50 Serum or plasma sodium measurement (moles/volume) 140 mmol/L 135-145 Serum or plasma potassium measurement (moles/volume) 3.9 mmol/L 3.6-5.0 Serum or plasma chloride measurement (moles/volume) 110 mmol/L 98-107 Carbon dioxide 24 mmol/L 21-32 Serum or plasma anion gap determination (moles/volume) 6 mmol/L 5-14 Serum or plasma urea nitrogen measurement (mass/volume) 19 mg/dL 7-18 Serum or plasma creatinine measurement (mass/volume) 0.90 mg/dL 0.60-1.30 Serum or plasma urea nitrogen/creatinine mass ratio 21 NRG Serum or plasma creatinine measurement with calculation of estimated glomerular filtration rate > NRG Serum or plasma glucose measurement (mass/volume) 89 mg/dL 70-105 Serum or plasma calcium measurement (mass/volume) 8.6 mg/dL 8.5-10.1 Serum or plasma total bilirubin measurement (mass/volume) 1.1 mg/dL 0.1-1.0 Serum or plasma alkaline phosphatase measurement (enzymatic activity/volume) 78 U/L 40-136 Serum or plasma aspartate aminotransferase measurement (enzymatic activity/ volume) 35 U/L 5-34 Serum or plasma alanine aminotransferase measurement (enzymatic activity/volume ) 37 U/L 0-55 Serum or plasma protein measurement (mass/volume) 6.2 g/dL 6.4-8.2 Serum or plasma albumin measurement (mass/volume) 3.6 g/dL 3.2-4.5 Automated blood complete blood count (hemogram) panel - 09/13/17 01:37 Blood leukocytes automated count (number/volume) 7.5 10*3/uL 4.3-11.0 Blood erythrocytes automated count (number/volume) 4.18 10*6/uL 4.35-5.85 Venous blood hemoglobin measurement (mass/volume) 10.6 g/dL 11.5-16.0 Blood hematocrit (volume fraction) 34 % 35-52 Automated erythrocyte mean corpuscular volume 81 [foz_us] 80-99 Automated erythrocyte mean corpuscular hemoglobin (mass per erythrocyte) 25 pg 25-34 Automated erythrocyte mean corpuscular hemoglobin concentration measurement ( mass/volume) 31 g/dL 32-36 Automated erythrocyte distribution width ratio 19.2 % 10.0-14.5 Automated blood platelet count (count/volume) 317 10*3/uL 130-400 Automated blood platelet mean volume measurement 10.6 [foz_us] 7.4-10.4 Whole blood basic metabolic panel - 09/13/17 01:37 Serum or plasma sodium measurement (moles/volume) 139 mmol/L 135-145 Serum or plasma potassium measurement (moles/volume) 4.0 mmol/L 3.6-5.0 Serum or plasma chloride measurement (moles/volume) 106 mmol/L 98-107 Carbon dioxide 22 mmol/L 21-32 Serum or plasma anion gap determination (moles/volume) 11 mmol/L 5-14 Serum or plasma urea nitrogen measurement (mass/volume) 25 mg/dL 7-18 Serum or plasma creatinine measurement (mass/volume) 1.11 mg/dL 0.60-1.30 Serum or plasma urea nitrogen/creatinine mass ratio 23 NRG Serum or plasma creatinine measurement with calculation of estimated glomerular filtration rate 49 NRG Serum or plasma glucose measurement (mass/volume) 95 mg/dL 70-105 Serum or plasma calcium measurement (mass/volume) 9.5 mg/dL 8.5-10.1 Encounters ACCT No. Visit Date/Time Discharge Status Pt. Type Provider Facility Loc./Unit Complaint [id number] 05/27/2014 14:11:00 05/27/2014 23:59:59 CLS Outpatient BOOKER CARMONA APRN 03/12/11 08/20/2017 14:21:16 08/20/2017 23:59:59 CLS Outpatient Joyce Sahu [id number] 11/13/2014 09:57:55 ACT Document Registration [id number] 09/03/2017 13:00:00 09/04/2017 20:46:00 DIS Inpatient JOYCE SAHU DO S [facility] 4TH ANEMIA [id number] 08/27/2017 09:45:00 08/27/2017 23:59:59 CLS Preadmit JOYCE SAHU DO S [facility] RAD SCREENING [id number] 08/06/2017 11:50:00 08/06/2017 23:59:59 CLS Outpatient DAMON CLAUDIO MD [facility] CARD CHEST PAIN [id number] 07/02/2017 15:11:00 07/02/2017 17:30:00 DIS Emergency JH LAGOS MD [facility] ER A-FIB EPISODE [id number] 03/31/2017 19:11:00 03/31/2017 22:03:00 DIS Emergency MARIE HAN DO [facility] ER DIZZINESS [id number] 2017 11:34:00 2017 17:44:00 DIS Emergency HEATHER LUKE MD [facility] ER WEAKNESS/VISION DISTURBANCE [id number] 03/11/2017 22:30:00 03/11/2017 23:40:00 DIS Emergency BABAK PINEDO MD [facility] ER RT SIDED ABDOMINAL PAIN [id number] 12/07/2016 21:01:00 12/08/2016 00:15:00 DIS Emergency MARGO JOHNSON ACCOUNTS ADJUSTABLE CLERK [facility] ER STOMACH PAIN [id number] 09/12/2016 10:08:00 09/12/2016 23:59:59 CLS Outpatient GONZÁLEZ BRADEN, DAMON Gunn [facility] LAB CHEST PAIN,HTN,PAF,GI BLEED [id number] 02/29/2016 09:38:00 02/29/2016 23:59:59 CLS Outpatient CONOR PLATT JOYCE S [facility] RAD DYSPHAGIA,WEAKNESS, FATIGUE,ANEMIA,EDEMA [id number] 01/05/2016 15:26:00 01/05/2016 23:59:59 CLS Outpatient CONOR PLATT JOYCE S [facility] RAD SCREENING [id number] 12/25/2015 06:17:00 12/26/2015 13:30:00 DIS Inpatient CONOR PLATT JOYCE S [facility] ICU CHEST PAIN [id number] 11/10/2015 07:03:00 11/10/2015 23:59:59 CLS Outpatient BEST HOOVER MD [facility] SDC GI BLEED,ANEMIA [id number] 11/04/2015 08:34:00 11/06/2015 14:30:00 DIS Inpatient RIGO SAHU DOQUELINE S [facility] 4TH ANEMIA [id number] 07/29/2015 05:35:00 07/29/2015 23:59:59 CLS Outpatient BEST HOOVER MD [facility] PREOP COLONOSCOPY [id number] 05/09/2015 22:36:00 05/10/2015 00:45:00 DIS Emergency BABAK PINEDO MD [facility] ER SOA [id number] 11/13/2014 09:55:00 11/13/2014 12:10:00 DIS Emergency JOHNSONMARGO ACCOUNTS ADJUSTABLE CLERK [facility] ER FALL/LEFT KNEE INJ [id number] 06/24/2014 14:51:00 06/24/2014 23:59:59 CLS Outpatient GONZÁLEZ BRADEN, DAMON Gunn [facility] RAD CAROTID BRUIT, CP,HTN, PAF [id number] 05/18/2014 03:30:00 05/18/2014 12:00:00 DIS Inpatient LARRY PLUNKETT MD [facility] CSD CHEST PAIN [id number] 04/21/2014 21:20:00 04/22/2014 19:25:00 DIS Inpatient BRAVO SAHU DOLINE S [facility] ICU A FIB WITH RVR [id number] 09/18/2013 12:50:00 09/18/2013 23:59:59 CLS Outpatient RIGO SAHU DOQUELINE S [facility] RAD CEPHALGIA, DIZZINESS [id number] 09/02/2013 13:23:00 09/02/2013 23:59:59 CLS Outpatient CONOR PLATT JOYCE S [facility] RAD CEPHALGIA, DIZZINESS [id number] 12/07/2012 06:17:00 12/07/2012 09:07:00 DIS Emergency MARIE HAN DO [facility] ER SOA;ABD PAIN [id number] 11/22/2012 18:28:00 11/22/2012 23:59:59 CLS Outpatient [id number] 11/19/2012 18:41:00 11/21/2012 17:00:00 DIS Inpatient CONOR PLATT JOYCE S [facility] 4TH GI BLEED [id number] 11/09/2012 14:58:00 11/10/2012 14:11:00 DIS Inpatient ALDAIR BRADEN, BRENDAN Mata [facility] 4TH BLURRED VISION NAUSEA DIZZY [id number] 10/24/2012 14:32:00 10/24/2012 16:22:00 DIS Emergency BABAK PINEDO MD [facility] ER FALL/FACIAL INJURY [id number] 10/18/2012 20:15:00 10/19/2012 12:30:00 DIS Inpatient JOYCE SAHU DO [facility] ICU A FIB; RVR [id number] 09/13/2017 02:18:00 Document Registration [id number] 06/24/2014 15:32:00 Document Registration [id number] 06/24/2014 15:31:00 Document Registration [id number] 06/24/2014 15:31:00 Document Registration [id number] 09/29/2012 03:08:00 Document Registration [id number] 09/16/2012 11:30:00 Document Registration [id number] 07/11/2012 07:13:00 Document Registration [id number] 06/13/2012 22:45:00 Document Registration [id number] 01/02/2012 01:06:00 Document Registration [id number] 03/14/2011 09:46:00 Document Registration [id number] 01/23/2011 00:30:00 Document Registration [id number] 02/03/2010 09:59:00 Document Registration [id number] 11/30/2009 11:00:00 Document Registration [id number] 11/25/2009 13:10:00 Document Registration [id number] 10/21/2009 14:31:00 Document Registration [id number] 09/30/2009 08:17:00 Document Registration [id number] 09/28/2009 09:40:00 Document Registration [id number] 04/09/2009 00:08:00 Document Registration
== END 2017-09-13 02:44 | disposition home or self-care (01) ==
LOC: EDUNIT# 01:19 → ER 01:21
DX: I48.0 Paroxysmal atrial fibrillation (principal); D64.9 Anemia, unspecified; I10 Essential (primary) hypertension; G43.909 Migraine, unspecified, not intractable, without status migrainosus; K21.9 Gastro-esophageal reflux disease without esophagitis; E11.40 Type 2 diabetes mellitus with diabetic neuropathy, unspecified; Z92.21 Personal history of antineoplastic chemotherapy; Z82.49 Family history of ischemic heart disease and other diseases of the circulatory system; Z87.448 Personal history of other diseases of urinary system; Z88.8 Allergy status to other drugs, medicaments and biological substances; Z79.51 Long term (current) use of inhaled steroids; Z79.01 Long term (current) use of anticoagulants; Z87.19 Personal history of other diseases of the digestive system; Z87.39 Personal history of other diseases of the musculoskeletal system and connective tissue; Z90.49 Acquired absence of other specified parts of digestive tract; Z87.59 Personal history of other complications of pregnancy, childbirth and the puerperium; Z90.710 Acquired absence of both cervix and uterus
CPT/HCPCS: 36415; 80048; 85027; 93005; 93041

== ENCOUNTER → 2018-01-17 | Outpatient (CLI) | payer MEDICARE ==
[~2018-01-17] MED LIST changes: +FERR160T5 PO; -SENN-1 PO; +SENN-145 PO
--- NOTE | 2018-01-17 16:18 | Diagnostic Imaging Report ---
DATE: January 17, 2018. INDICATION: 67-year-old female, nodule, redness, warmth. COMPARISON: None. FINDINGS: Targeted ultrasound evaluation at the area of focal clinical concern was performed at the level of the right posterior thigh near the level of the knee joint. There is an ill-defined area of slightly increased echogenicity without well-defined margins which is measured by the textile technologist at 3.1 x 1.4 x 1.7 cm in size. This is questionable for a mass or other abnormality. IMPRESSION: Questionable abnormal hypoechoic area at the area of focal concern measuring 3.1 x 1.4 x 1.7 cm in size. Recommend dedicated small [id number] MRI with and without contrast for further assessment. Dictated by: Dictated on workstation # [id number]
== END ==
LOC: RAD 15:39
PROVIDERS: ATTEND Nurse Practitioner Family
DX: R22.42 Localized swelling, mass and lump, left lower limb (principal)
CPT/HCPCS: 76881

== ENCOUNTER → 2018-01-23 | Outpatient (CLI) | payer MEDICARE ==
[2018-01-23 09:50] LABS: CREATININE SERUM 0.96 MG/DL (0.60-1.30)
== END ==
LOC: RAD 08:53
PROVIDERS: ATTEND Family Medicine
DX: R22.42 Localized swelling, mass and lump, left lower limb (principal); Z53.8 Procedure and treatment not carried out for other reasons
CPT/HCPCS: 36415; 82565; 84520

== ENCOUNTER → 2018-02-25 | Outpatient (CLI) | payer MEDICARE ==
[~2018-02-25] MED LIST changes: +CATHETER FLUSH 10 ML SYR IV PRN; +REGADENOSON 0.4 MG/5 ML SYR (LEXISCAN) IV ONE
[2018-02-25 09:14] VITALS: BP 148/59
--- NOTE | 2018-02-25 13:17 | STRESS TEST ---
DATE OF SERVICE: 02/25/2018 LEXISCAN MYOVIEW STRESS TEST REPORT REFERRING PHYSICIAN: Dr. Sahu. Baseline heart rate is 59. Baseline blood pressure 147/70. Baseline EKG sinus rhythm with right bundle branch block. In summary, the patient was injected with 10.67 mCi of technetium-99 Myoview and the resting images were obtained. Then, the patient received 0.4 mg of Lexiscan followed by 31.3 mCi of technetium-99 Myoview. Throughout the test, there were no EKG changes. The resting and stress images were reviewed and compared in the short axis, horizontal long axis, and vertical long axis views. Review of the images showed breast attenuation with mild decreased uptake at the mid to apical anterior wall with mild reversibility that has improved after protocol applied. SSS is 6. SDS is 6. TID value 1.02. On the gated images, the left ventricle appeared to be in normal size with normal contractility. Calculated ejection fraction 79%. CONCLUSION: 1. The patient tolerated Lexiscan well. 2. Breast attenuation with typical female pattern. No significant ischemia was noted. 3. Normal left ventricular size with normal contractility. Calculated ejection fraction 79%. Job ID: [id number] DocumentID: [id number] Dictated Date: 02/25/2018 12:10:51 Paper Products Supervisor Date: 02/25/2018 13:17:15 Dictated By: DAMON CLAUDIO MD
== END ==
LOC: CARD 07:21
PROVIDERS: ATTEND Internal Medicine Cardiovascular Disease
DX: R07.89 Other chest pain (principal); I10 Essential (primary) hypertension; I48.0 Paroxysmal atrial fibrillation; K21.9 Gastro-esophageal reflux disease without esophagitis
CPT/HCPCS: 78452; 93017

== ENCOUNTER 2018-04-08 10:37 | Emergency (ER) | payer MEDICARE ==
[~2018-04-08] VITALS: Ht 167.6 cm; Wt 83.9 kg
[~2018-04-08 10:37] MED LIST changes: -CATHETER FLUSH 10 ML SYR IV PRN; -REGADENOSON 0.4 MG/5 ML SYR (LEXISCAN) IV ONE
[2018-04-08] MEDS ORDERED: ONDANSETRON 4 MG/2 ML (SDV) Z0FRAN IVP ONE (10:45)
[2018-04-08 10:54] LABS: BASOPHILS # (AUTO) 0.1 10^3/uL (0.0-0.1); BASOPHILS % (AUTO) 1 % (0-10); EOSINOPHILS # (AUTO) 0.1 10^3/uL (0.0-0.3); EOSINOPHILS % (AUTO) 2 % (0-10); HEMATOCRIT 33 % (35-52); HEMOGLOBIN 10.2 G/DL (11.5-16.0); LYMPHOCYTES % (AUTO) 38 % (12-44); MEAN CORPUSCULAR HEMOGLOBIN 29 PG (25-34); MEAN CORPUSCULAR HGB CONC 31 G/DL (32-36); MEAN CORPUSCULAR VOLUME 96 FL (80-99); MEAN PLATELET VOLUME 9.8 FL (7.4-10.4); MONOCYTES # (AUTO) 0.5 X 10^3 (0.0-1.0); MONOCYTES % (AUTO) 9 % (0-12); NEUTROPHILS # (AUTO) 2.6 X 10^3 (1.8-7.8); NEUTROPHILS % (AUTO) 50 % (42-75); PLATELET COUNT 294 10^3/uL (130-400); RED BLOOD COUNT 3.48 10^6/uL (4.35-5.85); RED CELL DISTRIBUTION WIDTH 14.7 % (10.0-14.5); WHITE BLOOD COUNT 5.3 10^3/uL (4.3-11.0)
[2018-04-08 11:17] LABS: ALBUMIN 4.2 GM/DL (3.2-4.5); BILIRUBIN,TOTAL 0.4 MG/DL (0.1-1.0); CALCIUM 9.7 MG/DL (8.5-10.1); POTASSIUM 4.1 MMOL/L (3.6-5.0); TOTAL PROTEIN 7.5 GM/DL (6.4-8.2)
[2018-04-08 11:25] LABS: ERYTHROCYTE SEDIMENTATION RATE 33 MM/HR (0-30)
[2018-04-08 11:53] LABS: BILIRUBIN,URINE NEGATIVE (NEGATIVE); CLARITY,URINE CLEAR; COLOR,URINE YELLOW; GLUCOSE, URINE (UA) NEGATIVE (NEGATIVE); KETONES,URINE NEGATIVE (NEGATIVE); LEUKOCYTE ESTERASE ,URINE 1+ (NEGATIVE); NITRITE,URINE NEGATIVE (NEGATIVE); PH,URINE 6 (5-9); PROTEIN,URINE NEGATIVE (NEGATIVE); UROBILINOGEN,URINE NORMAL (NORMAL)
[2018-04-08 12:00] LABS: BACTERIA,URINE LARGE /HPF; SQUAMOUS EPITHELIAL CELL,UR 0-2 /HPF; WBC,URINE RARE /HPF
--- NOTE | 2018-04-08 12:35 | Diagnostic Imaging Report ---
PROCEDURE: CT head without contrast. TECHNIQUE: Multiple contiguous axial images were obtained through the brain without the use of intravenous contrast. INDICATION: Headache and nausea. COMPARISON: Comparison is made with prior CT brain from 03/12/2017. FINDINGS: The ventricular size and sulcal pattern appear stable. There is extensive periventricular hypodensity noted, similar to prior exam consistent with chronic microvascular ischemia. Small area of encephalomalacia in the right frontal lobe consistent with prior infarct appears stable. 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 No sulcal effacement, midline shift or hemorrhage is detected. The cisterns are patent. The visualized paranasal sinuses are clear. IMPRESSION: Stable chronic changes when compared with prior study from 03/12/2017. No acute intracranial process is detected. Dictated by: Dictated on workstation # [id number]
--- NOTE | 2018-04-08 12:47 | ED Headache ---
General Chief Complaint: Head/Cervical Problems Stated Complaint: NAUSE;HEAD PAIN Nursing Triage Note: ASSISTED PT OUT OF CAR TO ROOM 9 VIA AMB. PT STATES SHE WAS SEEN ON SAT AT URGENT CARE AND TODAY DOES NOT FEEL ANY BETTER. COMPLAINS OF HER HEAD FEELING LIKE THERE IS A VICE ON IT, SEEING BLACK SPOTS OFF AND ON, AND NAUSEA. Nursing Sepsis Screen: No Definite Risk Source: patient Exam Limitations: no limitations History of Present Illness Date Seen by Provider: Apr 08, 2018 Time Seen by Provider: 12:00 Initial Comments Patient is a 68 year old female who presents to the emergency room with reports of a headache, nausea, and seeing black spots in her visual field for the past week. She reports that she was seen at Urgent care 3 days ago and reports that the pain and nausea is not getting any better. She has an appointment at [address] Mckenzie office. Timing/Duration: 1 week Severity/Quality: pressure Location: global Prior Headaches/Recent Trauma: no recent headache/trauma Associated Symptoms: nausea/vomiting, vision changes Allergies and Home Medications Allergies Coded Allergies: Beta-Blockers (Beta-Adrenergic Bloc (Unverified Allergy, Unknown, 11/20/12) atenolol (Verified Allergy, Unknown, 04/05/07) Home Medications Acetaminophen 500 Mg Tablet, 1,000 MG PO TID, (Reported) TAKES 2 (500MG) TABLETS Cholecalciferol (Vitamin D3) 1,000 Unit Capsule, 1,000 UNIT PO DAILY, (Reported) Cyanocobalamin (Vitamin B-12) 1,000 Mcg Tablet, 1,000 MCG PO DAILY, (Reported) Diltiazem HCl 180 Mg Cap.er.24h, 180 MG PO HS, (Reported) Fluticasone Propionate 16 Gm [place].susp, 2 SPRAYS NS DAILY PRN for ALLERGIES, ( Reported) Kemp 3 Polyunsat Fatty Acids 1,000 Mg Cap, 1,000 MG PO HS, (Reported) Pantoprazole Sodium 40 Mg Tablet.dr, 40 MG PO DAILY, (Reported) Propafenone HCl 225 Mg Cap, 225 MG PO TID, (Reported) Rivaroxaban 20 Mg Tablet, 20 MG PO HS, (Reported) Sennosides/Docusate Sodium 1 Each Tablet, 1 TAB PO BID, (Reported) Patient Home Medication List Home Medication List Reviewed: Yes Review of Systems Review of Systems Constitutional: see HPI; No chills, No fever Eyes: See HPI, Blindness, Blurred Vision, Shadows (spots) Psychiatric/Neurological: See HPI, Headache All Other Systems Reviewed Negative Unless Noted: Yes Past Rzlpkbs-Bkiehq-Vcujxp Hx Past Med/Social Hx: Reviewed Nursing Past Med/Soc Hx Patient Social History Alcohol Use: Denies Use Recreational Drug Use: No Smoking Status: Never a Smoker 2nd Hand Smoke Exposure: No Recent Foreign Travel: No Contact w/Someone Who Travel: No Recent Infectious Disease Expo: No Recent Hopitalizations: Yes (D/C 09/03/17) Immunizations Up To Date Tetanus Booster (TDap): Unknown PED Vaccines UTD: No Date of Pneumonia Vaccine: Mar 11, 2011 Date of Influenza Vaccine: May 04, 2014 Seasonal Allergies Seasonal Allergies: Yes Past Medical History Surgeries: Yes Abdominal, Appendectomy, Section, Gallbladder, 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, Neurological, Oophorectomy Respiratory: No Currently Using CPAP: No Currently Using BIPAP: No Cardiac: Yes (RBBB) Atrial Fibrillation, Heart Murmur, Hypertension, Valvular Heart Disease Neurological: Yes Headaches /Migraines, Neuropathy 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 Disorders: Yes (CERVICAL DYSPLASIA) Female 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 Disorders: 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, 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 Sexually Transmitted Disease: No HIV/AIDS: No Genitourinary: Yes (RENAL INSUFFICIENCY) Kidney Infection, Bladder Infection, Renal Failure Gastrointestinal: Yes Gastroesophageal Reflux, Gastrointestinal Bleed, Chronic Constipation, Hiatal Hernia, Gall Bladder Disease Musculoskeletal: Yes (KNEES, BACK, HIPS) Arthritis, Chronic Back Pain Endocrine: Yes (Pre Diabetic) Diabetes, Non-Insulin dep HEENT: No Loss of Vision: Denies Hearing Impairment: Denies Cancer: Yes Bone Did You Recieve Any Treatments: Yes What Type of Treatment Did You: Chemotherapy, Radiation, Surgical Intervention Psychosocial: Yes Anxiety Integumentary: No Blood Disorders: Yes (ANEMIA) Adverse Reaction/Blood Tranf: No Family Medical History Reviewed Nursing Family Hx Arthritis 19 MOTHER, Onset:30's - 40 (RA) Cardiovascular disease 19 MOTHER, Onset:40's - 50 Completed stroke 19 MOTHER, Onset:60 years & older Headache disorder 19 FATHER, Onset:Unknown (severe sinus headaches) Hypertension 19 MOTHER, Onset:50's - 60 Myocardial infarction 19 MOTHER, Onset:60 years & older Psychosocial problem 19 FATHER, Onset:Unknown No Family History of: AIDS Abdominal aortic aneurysm Sundeep's disease Alcoholism Alzheimer's disease Aphasia Asthma Cancer of mouth Cataracts Colon cancer Congenital disease Congenital heart disease Coronary thrombosis Cystic fibrosis Deafness or hearing loss Dementia Diabetes mellitus Drug abuse Dysphasia Fibrocystic disease of breast Gastroenteritis Glaucoma Hypercholesterolemia Infertility Kidney disease Neoplasm Not obtainable due to adoption Osteoporosis Parkinson's disease Prostate cancer Respiratory disorder Seizure disorder Severe allergy Thyroid disease Tuberculosis Visual disorder Heart Disease Physical Exam Vital Signs Vital Signs - First Documented 04/08/18 10:37 Temp 98.0 Pulse 65 Resp 16 B/P (MAP) 127/107 (114) Pulse Ox 100 O2 Delivery Room Air Capillary Refill : Less Than 3 Seconds Height, Weight, BMI Height: 5'6.00" Weight: 185lbs. 0.0oz. 83.676638xw; 31.2 BMI Method:Stated General Appearance: WD/WN, no apparent distress HEENT: PERRL/EOMI, normal ENT inspection, TMs normal, pharynx normal Neck: non-tender, full range of motion, supple, normal inspection Cardiovascular: normal peripheral pulses, regular rate, rhythm, no edema, no gallop, no JVD, no murmur Respiratory: chest non-tender, lungs clear, normal breath sounds, no respiratory distress, no accessory muscle use Gastrointestinal: normal bowel sounds, non tender, soft, no organomegaly, no pulsatile mass Psychiatric: alert, oriented x 3 Cra[place] Nerves: normal hearing, normal speech, PERRL Coordination/Gait: normal finger to nose, normal gait Motor/Sensory: no motor deficit, no sensory deficit Skin: normal color, warm/dry Comments NIH: 0 Progress/Results/Core Measures Results/Orders Lab Results Laboratory Tests Test 04/08/18 10:38 04/08/18 10:45 04/08/18 11:40 Range/Units Lab Scanned Report Referred Lab Report [id number] White Blood Count 5.3 4.3-11.0 10^3/uL Red Blood Count 3.48 L 4.35-5.85 10^6/uL Hemoglobin 10.2 L 11.5-16.0 G/DL Hematocrit 33 L 35-52 % Mean Corpuscular Volume 96 80-99 FL Mean Corpuscular Hemoglobin 29 25-34 PG Mean Corpuscular Hemoglobin Concent 31 L 32-36 G/DL Red Cell Distribution Width 14.7 H 10.0-14.5 % Platelet Count 294 130-400 10^3/uL Mean Platelet Volume 9.8 7.4-10.4 FL Neutrophils (%) (Auto) 50 42-75 % Lymphocytes (%) (Auto) 38 12-44 % Monocytes (%) (Auto) 9 0-12 % Eosinophils (%) (Auto) 2 0-10 % Basophils (%) (Auto) 1 0-10 % Neutrophils # (Auto) 2.6 1.8-7.8 X 10^3 Lymphocytes # (Auto) 2.0 1.0-4.0 X 10^3 Monocytes # (Auto) 0.5 0.0-1.0 X 10^3 Eosinophils # (Auto) 0.1 0.0-0.3 10^3/uL Basophils # (Auto) 0.1 0.0-0.1 10^3/uL Erythrocyte Sedimentation Rate 33 H 0-30 MM/HR Sodium Level 139 135-145 MMOL/L Potassium Level 4.1 3.6-5.0 MMOL/L Chloride Level 107 98-107 MMOL/L Carbon Dioxide Level 24 21-32 MMOL/L Anion Gap 8 5-14 MMOL/L Blood Urea Nitrogen 20 H 7-18 MG/DL Creatinine 1.00 0.60-1.30 MG/DL Estimat Glomerular Filtration Rate 55 BUN/Creatinine Ratio 20 Glucose Level 83 70-105 MG/DL Calcium Level 9.7 8.5-10.1 MG/DL Corrected Calcium 9.5 8.5-10.1 MG/DL Total Bilirubin 0.4 0.1-1.0 MG/DL Aspartate Amino Transf (AST/SGOT) 16 5-34 U/L Alanine Aminotransferase (ALT/SGPT) 19 0-55 U/L Alkaline Phosphatase 73 40-136 U/L C-Reactive Protein High Sensitivity 0.12 0.00-0.50 MG/DL Total Protein 7.5 6.4-8.2 GM/DL Albumin 4.2 3.2-4.5 GM/DL Urine Color YELLOW Urine Clarity CLEAR Urine pH 6 5-9 Urine Specific [place] 1.010 L 1.016-1.022 Urine Protein NEGATIVE NEGATIVE Urine Glucose (UA) NEGATIVE NEGATIVE Urine Ketones NEGATIVE NEGATIVE Urine Nitrite NEGATIVE NEGATIVE Urine Bilirubin NEGATIVE NEGATIVE Urine Urobilinogen NORMAL NORMAL MG/DL Urine Leukocyte Esterase 1+ H NEGATIVE Urine RBC (Auto) NEGATIVE NEGATIVE Urine RBC NONE /HPF Urine WBC RARE /HPF Urine Squamous Epithelial Cells 0-2 /HPF Urine Crystals NONE /LPF Urine Bacteria LARGE H /HPF Urine Casts NONE /LPF Urine Mucus NEGATIVE /LPF Urine Culture Indicated YES Micro Results Microbiology 04/08/18 Urine Culture - Final, Complete See Comments My Orders Orders - JOSE GODFREY Ct Head Wo (04/08/18 12:06) Iv [facility] [employer] Ed (04/08/18 ) Medications Given in ED Vital Signs/I&O 04/08/18 04/08/18 10:37 13:00 Temp 98.0 98.0 Pulse 65 65 Resp 16 16 B/P (MAP) 127/107 (114) 127/107 (114) Pulse Ox 100 100 O2 Delivery Room Air Blood Pressure Mean: 114 Progress Progress Note : Time: 12:57 Progress Note I have spoke to Dr. SAHU at this time. She agrees to have the patient discharged and keep her appointment for 1500 today at her office. I informed the patient of her laboratory findings and imaging studies. She agrees with plans of care, plans for discharge, return precautions were given. Diagnostic Imaging Diagonstic Imaging: CT Plain Films/CT/US/NM/MRI: head Comments [facility]IA [facility]. [place], [place] NAME: PRANAV SMITH [facility] REC#: [id number] PT STATUS: REG ER : 1950 PHYSICIAN: JOSE GODFREY ADMIT DATE: 04/08/18/ER Draft Date of Exam:04/08/18 CT HEAD WO PROCEDURE: CT head without contrast. TECHNIQUE: Multiple contiguous axial images were obtained through the brain without the use of intravenous contrast. INDICATION: Headache and nausea. COMPARISON: Comparison is made with prior CT brain from 03/12/2017. FINDINGS: The ventricular size and sulcal pattern appear stable. There is extensive periventricular hypodensity noted, similar to prior exam consistent with chronic microvascular ischemia. Small area of encephalomalacia in the right frontal lobe consistent with prior infarct appears stable. 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 No sulcal effacement, midline shift or hemorrhage is detected. The cisterns are patent. The visualized paranasal sinuses are clear. IMPRESSION: Stable chronic changes when compared with prior study from 03/12/2017. No acute intracranial process is detected. Dictated on workstation # [id number] Dict: 04/08/18 1229 Trans: 04/08/18 1234 [id number] Interpreted by: NENO SARABIA MD Electronically signed by: Reviewed: Reviewed by Me Departure Impression Primary Impression: Migraine Disposition: 01 HOME, SELF-CARE Condition: Stable/Unchanged Departure-Patient Inst. Decision time for Depature: 12:57 Referrals: ANTHONY SAHU DO (PCP/Family) Primary Care Physician Patient Instructions: Migraine Headache (DC) Add. Discharge Instructions: Keep your appointment at 3:[address] Sahu. Return back to the emergency room for any worsening symptoms or concerns as needed. All discharge instructions reviewed with patient and/or family. Voiced understanding. JOSE GODFREY Apr 08, 2018 12:47
[2018-04-08 13:00] VITALS: BP 127/107
== END 2018-04-08 13:13 | disposition home or self-care (01) ==
LOC: EDUNIT# 10:37 → ER 10:38
DX: G43.909 Migraine, unspecified, not intractable, without status migrainosus (principal); I48.91 Unspecified atrial fibrillation; I10 Essential (primary) hypertension; K21.9 Gastro-esophageal reflux disease without esophagitis; E11.42 Type 2 diabetes mellitus with diabetic polyneuropathy; F41.9 Anxiety disorder, unspecified; D64.9 Anemia, unspecified; Z92.21 Personal history of antineoplastic chemotherapy; Z82.49 Family history of ischemic heart disease and other diseases of the circulatory system; Z85.830 Personal history of malignant neoplasm of bone; Z87.19 Personal history of other diseases of the digestive system; Z87.448 Personal history of other diseases of urinary system; Z88.8 Allergy status to other drugs, medicaments and biological substances; Z79.51 Long term (current) use of inhaled steroids; Z79.01 Long term (current) use of anticoagulants; Z90.89 Acquired absence of other organs; Z98.890 Other specified postprocedural states; Z90.710 Acquired absence of both cervix and uterus
CPT/HCPCS: 36415; 70450; 80053; 81000; 85025; 85652; 86141; 87088; 96374

== ENCOUNTER 2018-05-02 21:52 | Inpatient (IN) | payer MEDICARE ==
[~2018-05-02] VITALS: Ht 167.6 cm; Wt 85.7 kg
--- OUTSIDE RECORDS SUMMARY | 2018-05-02 22:05 | XMS REPORT | Clinical Summary ---
Author Author [facility] Organization [facility] Address Unknown Phone Unavailable Care Team Providers Care Manager Epic Name Role Phone Amanda Ruffin MD Unavailable Bean Carrera MD Unavailable Anselmo Alex APRN Unavailable Unavailable Joyce Sahu MD PCP Matt York MD Unavailable Unavailable Source Comments Some departments are not documenting in the electronic medical record. If you do not see the information that you expected, contact Release of Information in the Health Information Management department at [phone] for further assistance in locating additional records.[facility] Allergies Active Allergy Reactions Severity [...] C SCREENING 1950 PHYSICAL (COMPREHENSIVE) 1959 EXAM DTAP/TDAP VACCINES (1 - 1970 Tdap) BREAST CANCER SCREENING 1992 COLORECTAL CANCER 2002 SCREENING SHINGLES RECOMBINANT 2002 VACCINE (1 of 2) OSTEOPOROSIS 2017 SCREENING/MONITORING PNEUMONIA (PCV13/PPSV23) 2017 VACCINES (1 of 2 - PCV13) INFLUENZA VACCINE 01/09/2018 03/05/2009, 04/09/2008, 04/01/2007 Results Not on filefrom Last 3 Months
--- OUTSIDE RECORDS SUMMARY | 2018-05-02 22:11 | XMS REPORT | Continuity of Care Document ---
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 Ot 844.9 SPRAIN OF KNEE LEG NOS 11/13/2014 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 Ot E000.8 OTHER EXTERNAL CAUSE STATUS 11/13/2014 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 Ot E888.9 FALL NOS 05/10/2015 KHRIS BRADEN, [...] NORMALLY 05/10/2015 BABAK PINEDO MD Ot Z79.01 [employer] (CURRENT) USE OF 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 05/10/2015 BABAK PINEDO [...] DO, JOYCE S Ot 724.2 LUMBAGO 09/28/2015 EDVINNDER DO, JOYCE S Ot 780.4 DIZZINESS AND [...] S Ot I25.10 ATHSCL HEART DISEASE OF [place] CORONARY 11/05/2015 JOYCE SAHU DO S Ot [...] 11/05/2015 JOYCE SAHU DO S Ot Y84.8 [facility] PROCEDURES CAUSE ABN REACT/C 11/05/2015 JOYCE SAHU DO S Ot Z79.01 [employer] (CURRENT) USE OF 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 11/05/2015 JOYCE SAHU DO S Ot Z85.848 PERSONAL HISTORY OF MALIGNANT NEOPLASM O 11/05/2015 BRAVO SAHU DOYANIV Ricci Ot Z92.21 PERSONAL HISTORY OF ANTINEOPLASTIC CHEMO 11/05/2015 CONOR PLATT JOYCE S Ot Z92.3 PERSONAL HISTORY OF IRRADIATION 11/05/2015 CONOR PLATT JOYCE S Ot D62 ACUTE POSTHEMORRHAGIC ANEMIA 11/05/2015 CONOR PLATTJOYCE Ot F41.9 ANXIETY DISORDER, UNSPECIFIED 11/05/2015 EDVINMORE PLATT JOYCE S Ot G43.909 MIGRAINE, UNSP, NOT INTRACTABLE, WITHOUT 11/05/2015 CONOR PLATT JOYCE S Ot I10 ESSENTIAL (PRIMARY) HYPERTENSION 11/05/2015 EDVINMORE PLATT JOYCE S Ot I25.10 ATHSCL HEART DISEASE OF [place] CORONARY 11/05/2015 EDVINMORE PLATT JOYCE S Ot [...] REACT/C 11/05/2015 EDVINMORE JOYCE PLATT Ot Z79.01 [employer] (CURRENT) USE OF 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 11/05/2015 EDVINMORE PLATTJOYCE [...] DO Ot I25.10 ATHSCL HEART DISEASE OF [place] CORONARY 11/06/2015 JOYCE SAHU DO Ot I48.0 [...] Ot M54.9 DORSALGIA, UNSPECIFIED 11/06/2015 CONOR PLATT JOYCE S Ot R29.818 OTHER SYMPTOMS AND SIGNS INVOLVING THE N 11/06/2015 JOYCE SAHU DO Ot R73.09 OTHER ABNORMAL GLUCOSE 11/06/2015 JOYCE SAHU DO Ot Y84.8 [facility] CAUSE ABN REACT/C 11/06/2015 CONOR PLATT JOYCE Ricci Ot Z79.01 [employer] (CURRENT) USE OF 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 11/06/2015 CONOR PLATT [...] S Ot I25.10 ATHSCL HEART DISEASE OF [place] CORONARY 12/26/2015 ORENDER DO, JOYCE S Ot [...] S Ot I25.10 ATHSCL HEART DISEASE OF [place] CORONARY 12/26/2015 ORENDER DO, JOYCE S Ot [...] SAHU DOLINE S Ot 723.1 CERVICALGIA 02/29/2016 RBAVO SAHU DOLINE S Ot 724.2 LUMBAGO 02/29/2016 [...] DIABETES MELLITUS WITHOUT COMPLIC 12/08/2016 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 Ot I10 ESSENTIAL (PRIMARY) HYPERTENSION 12/08/2016 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 Ot I48.91 UNSPECIFIED ATRIAL FIBRILLATION 12/08/2016 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 Ot K21.9 GASTRO-ESOPHAGEAL REFLUX DISEASE WITHOUT 12/08/2016 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 Ot K59.00 CONSTIPATION, UNSPECIFIED 12/08/2016 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 Ot Z79.899 OTHER HALFWAY (CURRENT) DRUG THERAPY 03/11/2017 BABAK PINEDO MD [...] COLLAPSE 2017 HEATHER LUKE MD Ot Z79.01 HALFWAY (CURRENT) USE OF 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 2017 HEATHER LUKE [...] COLLAPSE 03/14/2017 HEATHER LUKE MD Ot Z79.01 [employer] (CURRENT) USE OF 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 03/14/2017 HEATHER LUKE [...] COLLAPSE 03/18/2017 HEATHER LUKE MD Ot Z79.01 [employer] (CURRENT) USE OF 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 03/18/2017 HEATHER LUKE [...] 03/31/2017 OLAMIDE HAN DOA Ron Ot Z79.01 [employer] (CURRENT) USE OF 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 03/31/2017 OLAMIDE HAN [...] GIDDINESS 04/03/2017 GUILLE OLAMIDEA K Ot Z79.01 [employer] (CURRENT) USE OF 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 04/03/2017 GUILLE OLAMIDEA [...] 04/09/2017 GUILLE PLATT MARIE Velasquez Ot Z79.01 [employer] (CURRENT) USE OF 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 04/09/2017 GUILLE PLATT [...] S Ot 780.4 DIZZINESS AND GIDDINESS 07/02/2017 DAMON CLAUDIO MD Ot 401.9 HYPERTENSION NOS 07/02/2017 [...] PERSONAL HISTORY OF MALIGNANT NEOPLASM O 09/04/2017 EDVINBRAVO AGUERO DOLINE Keiry Ot Z92.21 PERSONAL HISTORY OF ANTINEOPLASTIC CHEMO 09/04/2017 RACHELLEBRAVO BLANCAS DOLINE Keiry Ot Z92.3 PERSONAL HISTORY OF IRRADIATION 09/13/2017 BABAK PINEDO MD, Ot D64.9 ANEMIA, UNSPECIFIED 09/13/2017 BABAK PINEDO MD, Ot E11.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 09/13/2017 BABAK PINEDO MD, Ot G43.909 MIGRAINE, UNSP, NOT INTRACTABLE, WITHOUT 09/13/2017 BABAK PINEDO MD, Ot I10 ESSENTIAL (PRIMARY) HYPERTENSION 09/13/2017 BABAK PINEDO MD, Ot I48.0 PAROXYSMAL ATRIAL FIBRILLATION 09/13/2017 BABAK PINEDO MD, Ot K21.9 GASTRO-ESOPHAGEAL REFLUX DISEASE WITHOUT 09/13/2017 BABAK PINEDO MD, Ot Z79.01 [employer] (CURRENT) USE OF 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 09/13/2017 BABAK PINEDO MD, Ot Z79.51 HALFWAY (CURRENT) USE OF INHALED STERO 09/13/2017 BABAK PINEDO MD, Ot Z82.49 FAMILY HX OF ISCHEM HEART DIS AND OTH DI 09/13/2017 BABAK PINEDO MD, Ot Z87.19 PERSONAL HISTORY OF OTHER DISEASES OF TH 09/13/2017 BABAK PINEDO MD, Ot Z87.39 PERSONAL HISTORY OF DISEASES OF THE MS S 09/13/2017 BABAK PINEDO MD, Ot Z87.448 PERSONAL HISTORY OF OTHER DISEASES OF UR 09/13/2017 BABAK PINEDO MD, Ot Z87.59 PERSONAL HISTORY OF COMP OF PREG, CHLDBR 09/13/2017 BABAK PINEDO MD, Ot Z88.8 ALLERGY STATUS TO OT DRUG/MEDS/BIOL SUB 09/13/2017 BABAK PINEDO MD, Ot Z90.49 ACQUIRED ABSENCE OF OTHER SPECIFIED PART 09/13/2017 BABAK PINEDO MD, Ot Z90.710 ACQUIRED ABSENCE OF BOTH CERVIX AND UTER 09/13/2017 BABAK PINEDO MD, Ot Z92.21 PERSONAL HISTORY OF ANTINEOPLASTIC CHEMO 09/17/2017 BABAK PINEDO MD, Ot D64.9 ANEMIA, UNSPECIFIED 09/17/2017 BABAK PINEDO MD, Ot E11.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 09/17/2017 BABAK PINEDO MD, Ot G43.909 MIGRAINE, UNSP, NOT INTRACTABLE, WITHOUT 09/17/2017 BABAK PINEDO MD, Ot I10 ESSENTIAL (PRIMARY) HYPERTENSION 09/17/2017 BABAK PINEDO MD, Ot I48.0 PAROXYSMAL ATRIAL FIBRILLATION 09/17/2017 BABAK PINEDO MD, Ot K21.9 GASTRO-ESOPHAGEAL REFLUX DISEASE WITHOUT 09/17/2017 BABAK PINEDO MD, Ot Z79.01 HALFWAY (CURRENT) USE OF 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 09/17/2017 BABAK PINEDO MD, Ot Z79.51 HALFWAY (CURRENT) USE OF INHALED STERO 09/17/2017 BABAK PINEDO MD, Ot Z82.49 FAMILY HX OF ISCHEM HEART DIS AND OTH DI 09/17/2017 BABAK PINEDO MD, Ot Z87.19 PERSONAL HISTORY OF OTHER DISEASES OF TH 09/17/2017 BABAK PINEDO MD, Ot Z87.39 PERSONAL HISTORY OF DISEASES OF THE MS S 09/17/2017 BABAK PINEDO MD, Ot Z87.448 PERSONAL HISTORY OF OTHER DISEASES OF UR 09/17/2017 BABAK PINEDO MD, Ot Z87.59 PERSONAL HISTORY OF COMP OF PREG, CHLDBR 09/17/2017 BABAK PINEDO MD, Ot Z88.8 ALLERGY STATUS TO OT DRUG/MEDS/BIOL SUB 09/17/2017 BABAK PINEDO MD, Ot Z90.49 ACQUIRED ABSENCE OF OTHER SPECIFIED PART 09/17/2017 BABAK PINEDO MD, Ot Z90.710 ACQUIRED ABSENCE OF BOTH CERVIX AND UTER 09/17/2017 BABAK PINEDO MD, Ot Z92.21 PERSONAL HISTORY OF ANTINEOPLASTIC CHEMO 09/18/2017 Ot 427.31 ATRIAL FIBRILLATION 09/18/2017 ORENDER DO, JOYCE S Ot 723.1 CERVICALGIA 09/18/2017 ORENDER DO, JOYCE S Ot 724.2 LUMBAGO 09/18/2017 ORENDER DO, JOYCE S Ot 780.4 DIZZINESS AND GIDDINESS 09/18/2017 ORENDER DO, JOYCE S Ot 348.89 OTHER CONDITIONS OF BRAIN 09/18/2017 ORENDER DO, JOYCE S Ot 722.52 LUMB/LUMBOSAC DISC DEGEN 09/18/2017 ORENDER DO, JOYCE S Ot 723.1 CERVICALGIA 09/18/2017 ORENDER DO, JOYCE S Ot 780.4 DIZZINESS AND GIDDINESS 09/18/2017 GONZÁLEZ BRADEN, DAMON Gunn Ot 401.9 HYPERTENSION NOS 09/18/2017 GONZÁLEZ BRADEN, DAMON Gunn Ot 427.31 ATRIAL FIBRILLATION 09/18/2017 DAMON CLAUDIO MD Ot 433.10 CAROTID ARTERY OCCLUSION W O CEREBRAL IN 09/18/2017 DAMON CLAUDIO MD Ot 433.30 MULT BILTRAL ARTERY OCCLUSION WO CEREBRA 09/18/2017 DAMON CLAUDIO MD Ot 785.9 CARDIOVAS SYS SYMP NEC 09/18/2017 DAMON CLAUDIO MD Ot 786.50 CHEST PAIN NOS 09/18/2017 KIKO BRADEN, BEST Molina Ot K62.5 HEMORRHAGE OF ANUS AND RECTUM 09/18/2017 KIKO BRADEN, BEST Molina Ot Z01.818 ENCOUNTER FOR OTHER PREPROCEDURAL EXAMIN 09/18/2017 KIKO BRADEN, BEST Molina Ot D64.9 ANEMIA, UNSPECIFIED 09/18/2017 KIKO BRADEN, BEST Molina Ot K44.9 DIAPHRAGMATIC HERNIA WITHOUT OBSTRUCTION 09/18/2017 KIKO BRADEN, BEST Molina Ot K92.2 GASTROINTESTINAL HEMORRHAGE, UNSPECIFIED 09/18/2017 ORENDER DO, JOYCE S Ot Z12.31 ENCNTR SCREEN MAMMOGRAM FOR MALIGNANT NE 09/18/2017 ORENDER DO, JOYCE S Ot D64.9 ANEMIA, UNSPECIFIED 09/18/2017 ORENDER DO, JOYCE S Ot R06.00 DYSPNEA, UNSPECIFIED 09/18/2017 ORENDER DO, JOYCE S Ot R53.83 OTHER FATIGUE 09/18/2017 ORENDER DO, JOYCE S Ot R60.9 EDEMA, UNSPECIFIED 09/18/2017 CONOR PLATT, JOYCE S Ot R73.02 IMPAIRED GLUCOSE TOLERANCE (ORAL) 09/18/2017 DAMON CLAUDIO MD Ot F41.9 ANXIETY DISORDER, UNSPECIFIED 09/18/2017 DAMON CLAUDIO MD Ot I10 ESSENTIAL (PRIMARY) HYPERTENSION 09/18/2017 DAMON CLAUDIO MD Ot I48.0 PAROXYSMAL ATRIAL FIBRILLATION 09/18/2017 DAMON CLAUDIO MD Ot K92.2 GASTROINTESTINAL HEMORRHAGE, UNSPECIFIED 09/18/2017 DAMON CLAUDIO MD Ot R07.89 OTHER CHEST PAIN 09/18/2017 DAMON CLAUDIO MD Ot I48.0 PAROXYSMAL ATRIAL FIBRILLATION 09/18/2017 DAMON CLAUDIO MD Ot K92.2 GASTROINTESTINAL HEMORRHAGE, UNSPECIFIED 09/18/2017 DAMON CLAUDIO MD Ot N28.9 DISORDER OF KIDNEY AND URETER, UNSPECIFI 09/18/2017 DAMON CLAUDIO MD Ot R00.2 PALPITATIONS 09/18/2017 DAMON CLAUDIO MD Ot R07.89 OTHER CHEST PAIN 09/19/2017 BABAK PINEDO MD Ot D64.9 ANEMIA, UNSPECIFIED 09/19/2017 BABAK PINEDO MD Ot E11.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 09/19/2017 BABAK PINEDO MD, Ot G43.909 MIGRAINE, UNSP, NOT INTRACTABLE, WITHOUT 09/19/2017 BABAK PINEDO MD Ot I10 ESSENTIAL (PRIMARY) HYPERTENSION 09/19/2017 BABAK PINEDO MD Ot I48.0 PAROXYSMAL ATRIAL FIBRILLATION 09/19/2017 BABAK PINEDO MD, Ot K21.9 GASTRO-ESOPHAGEAL REFLUX DISEASE WITHOUT 09/19/2017 BABAK PINEDO MD, Ot Z79.01 HALFWAY (CURRENT) USE OF 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 09/19/2017 BABAK PINEDO MD, Ot Z79.51 HALFWAY (CURRENT) USE OF INHALED STERO 09/19/2017 BABAK PINEDO MD, Ot Z82.49 FAMILY HX OF ISCHEM HEART DIS AND OTH DI 09/19/2017 BABAK PINEDO MD, Ot Z87.19 PERSONAL HISTORY OF OTHER DISEASES OF TH 09/19/2017 BABAK PINEDO MD Ot Z87.39 PERSONAL HISTORY OF DISEASES OF THE MS S 09/19/2017 BABAK PINEDO MD, Ot Z87.448 PERSONAL HISTORY OF OTHER DISEASES OF UR 09/19/2017 BABAK PINEDO MD Ot Z87.59 PERSONAL HISTORY OF COMP OF PREG, CHLDBR 09/19/2017 BABAK PINEDO MD, Ot Z88.8 ALLERGY STATUS TO OT DRUG/MEDS/BIOL SUB 09/19/2017 BABAK PINEDO MD Ot Z90.49 ACQUIRED ABSENCE OF OTHER SPECIFIED PART 09/19/2017 BABAK PINEDO MD, Ot Z90.710 ACQUIRED ABSENCE OF BOTH CERVIX AND UTER 09/19/2017 BABAK PINEDO MD, Ot Z92.21 PERSONAL HISTORY OF ANTINEOPLASTIC CHEMO 10/02/2017 ORENDER DO, JOYCE S Ot D64.9 ANEMIA, UNSPECIFIED 10/02/2017 ORENDER DO, JOYCE S Ot I10 ESSENTIAL (PRIMARY) HYPERTENSION 10/02/2017 ORENDER DO, JOYCE S Ot K86.2 CYST OF PANCREAS 10/07/2017 ORENDER DO, JOYCE S Ot D64.9 ANEMIA, UNSPECIFIED 10/07/2017 ORENDER DO, JOYCE S Ot I10 ESSENTIAL (PRIMARY) HYPERTENSION 10/07/2017 ORENDER DO, JOYCE S Ot K86.2 CYST OF PANCREAS 10/12/2017 ORENDER DO, JOYCE S Ot D64.9 ANEMIA, UNSPECIFIED 10/12/2017 ORENDER DO, JOYCE S Ot I10 ESSENTIAL (PRIMARY) HYPERTENSION 10/12/2017 ORENDER DO, JOYCE S Ot K86.2 CYST OF PANCREAS 12/07/2017 ORENDER DO, JOYCE S Ot D64.9 ANEMIA, UNSPECIFIED 12/07/2017 ORENDER DO, JOCYE S Ot I10 ESSENTIAL (PRIMARY) HYPERTENSION 12/07/2017 ORENDER DO, JOYCE S Ot K86.2 CYST OF PANCREAS 12/07/2017 ORENDER DO, JOYCE S Ot D64.9 ANEMIA, UNSPECIFIED 12/07/2017 JOYCE SAHU DO Ot I10 ESSENTIAL (PRIMARY) HYPERTENSION 12/07/2017 JOYCE SAHU DO Ot K86.2 CYST OF PANCREAS 02/27/2018 Ot R22.42 LOCALIZED SWELLING, MASS AND LUMP, LEFT 02/27/2018 Ot R22.42 LOCALIZED SWELLING, MASS AND LUMP, LEFT 02/27/2018 Ot Z53.8 PROCEDURE AND TREATMENT NOT CARRIED OUT 02/27/2018 DAMON CLAUDIO MD Ot I10 ESSENTIAL (PRIMARY) HYPERTENSION 02/27/2018 DAMON CLAUDIO MD Ot I48.0 PAROXYSMAL ATRIAL FIBRILLATION 02/27/2018 DAMON CLAUDIO MD Ot K21.9 GASTRO-ESOPHAGEAL REFLUX DISEASE WITHOUT 02/27/2018 DAMON CLAUDIO MD Ot R07.89 OTHER CHEST PAIN 03/20/2018 DAMON CLAUDIO MD Ot I10 ESSENTIAL (PRIMARY) HYPERTENSION 03/20/2018 DAMON CLAUDIO MD Ot I48.0 PAROXYSMAL ATRIAL FIBRILLATION 03/20/2018 DAMON CLAUDIO MD Ot K21.9 GASTRO-ESOPHAGEAL REFLUX DISEASE WITHOUT 03/20/2018 DAMON CLAUDIO MD Ot R07.89 OTHER CHEST PAIN 04/02/2018 Ot R22.42 LOCALIZED SWELLING, MASS AND LUMP, LEFT 04/08/2018 DAMON CLAUDIO MD Ot I10 ESSENTIAL (PRIMARY) HYPERTENSION 04/08/2018 DAMON CLAUDIO MD Ot I48.0 PAROXYSMAL ATRIAL FIBRILLATION 04/08/2018 DAMON CLAUDIO MD Ot K21.9 GASTRO-ESOPHAGEAL REFLUX DISEASE WITHOUT 04/08/2018 DAMON CLAUDIO MD Ot R07.89 OTHER CHEST PAIN 04/08/2018 JOSE GODFREY Ot D64.9 ANEMIA, UNSPECIFIED 04/08/2018 JOSE GODFREY Ot E11.42 TYPE 2 DIABETES MELLITUS WITH DIABETIC P 04/08/2018 JOSE GODFREY Ot F41.9 ANXIETY DISORDER, UNSPECIFIED 04/08/2018 JOSE GODFREY Ot G43.909 MIGRAINE, UNSP, NOT INTRACTABLE, WITHOUT 04/08/2018 JOSE GODFREY Ot I10 ESSENTIAL (PRIMARY) HYPERTENSION 04/08/2018 JOSE GODFREY Ot I48.91 UNSPECIFIED ATRIAL FIBRILLATION 04/08/2018 BERNOT, JOSE Ot K21.9 GASTRO-ESOPHAGEAL REFLUX DISEASE WITHOUT 04/08/2018 BERNOT, JOSE Ot R11.0 NAUSEA 04/08/2018 BERNOT, JOSE Ot Z79.01 [employer]NAG[employer] (CURRENT) USE OF 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 04/08/2018 BERNOT, JOSE Ot Z79.51 HALFWAY (CURRENT) USE OF INHALED STERO 04/08/2018 BERNOT, JOSE Ot Z82.49 FAMILY HX OF ISCHEM HEART DIS AND OTH DI 04/08/2018 BERNOT, JOSE Ot Z85.830 PERSONAL HISTORY OF MALIGNANT NEOPLASM O 04/08/2018 BERNOT, JOSE Ot Z87.19 PERSONAL HISTORY OF OTHER DISEASES OF TH 04/08/2018 BERNOT, JOSE Ot Z87.448 PERSONAL HISTORY OF OTHER DISEASES OF UR 04/08/2018 BERNOT, JOSE Ot Z88.8 ALLERGY STATUS TO OT DRUG/MEDS/BIOL SUB 04/08/2018 BERNOT, JOSE Ot Z90.710 ACQUIRED ABSENCE OF BOTH CERVIX AND UTER 04/08/2018 BERNOT, JOSE Ot Z90.89 ACQUIRED ABSENCE OF OTHER ORGANS 04/08/2018 BERNOT, JOSE Ot Z92.21 PERSONAL HISTORY OF ANTINEOPLASTIC CHEMO 04/08/2018 BERNOT, JOSE Ot Z98.890 OTHER SPECIFIED POSTPROCEDURAL STATES 04/10/2018 BERNOT, JOSE Ot D64.9 ANEMIA, UNSPECIFIED 04/10/2018 BERNOT, JOSE Ot E11.42 TYPE 2 DIABETES MELLITUS WITH DIABETIC P 04/10/2018 BERNOT, JOSE Ot F41.9 ANXIETY DISORDER, UNSPECIFIED 04/10/2018 BERNOT, JOSE Ot G43.909 MIGRAINE, UNSP, NOT INTRACTABLE, WITHOUT 04/10/2018 BERNOT, JOSE Ot I10 ESSENTIAL (PRIMARY) HYPERTENSION 04/10/2018 BERNOT, JOSE Ot I48.91 UNSPECIFIED ATRIAL FIBRILLATION 04/10/2018 BERNOT, JOSE Ot K21.9 GASTRO-ESOPHAGEAL REFLUX DISEASE WITHOUT 04/10/2018 BERNOT, JOSE Ot R11.0 NAUSEA 04/10/2018 BERNOT, JOSE Ot Z79.01 R[employer]NAG[employer] (CURRENT) USE OF 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 04/10/2018 BERNOT, JOSE Ot Z79.51 R[employer]NAG[employer] (CURRENT) USE OF INHALED STERO 04/10/2018 BERNOT, JOSE Ot Z82.49 FAMILY HX OF ISCHEM HEART DIS AND OTH DI 04/10/2018 JOSE GODFREY Ot Z85.830 PERSONAL HISTORY OF MALIGNANT NEOPLASM O 04/10/2018 JUAN GODFREYIS Ot Z87.19 PERSONAL HISTORY OF OTHER DISEASES OF TH 04/10/2018 JUAN GODFREYIS Ot Z87.448 PERSONAL HISTORY OF OTHER DISEASES OF UR 04/10/2018 JUAN GODFREYIS Ot Z88.8 ALLERGY STATUS TO [facility] DRUG/MEDS/BIOL SUB 04/10/2018 JUAN GODFREYIS Ot Z90.710 ACQUIRED ABSENCE OF BOTH CERVIX AND UTER 04/10/2018 JUAN GODFREYIS Ot Z90.89 ACQUIRED ABSENCE OF OTHER ORGANS 04/10/2018 JUAN GODFREYIS Ot Z92.21 PERSONAL HISTORY OF ANTINEOPLASTIC CHEMO 04/10/2018 JUAN GODFREYIS Ot Z98.890 OTHER SPECIFIED POSTPROCEDURAL STATES 04/15/2018 DAMON CLAUDIO MD Ot I48.0 PAROXYSMAL ATRIAL FIBRILLATION 04/15/2018 DAMON CLAUDIO MD Ot K92.2 GASTROINTESTINAL HEMORRHAGE, UNSPECIFIED 04/15/2018 DAMON CLAUDIO MD Ot N28.9 DISORDER OF KIDNEY AND URETER, UNSPECIFI 04/15/2018 DAMON CLAUDIO MD Ot R00.2 PALPITATIONS 04/15/2018 DAMON CLAUDIO MD Ot R07.89 OTHER CHEST PAIN Procedures Code Description Performed By Performed On 45.16 ESOPHAGOGASTRODUODENOSCOPY [ EGD] W/CLOSE 11/20/2012 45.23 COLONOSCOPY 11/20/2012 98365 [employer] 05/29/2014 18356 SLEEP STUDY ([facility]- SLEEP STUDY) 06/22/2014 [id number] INSPECTION OF UPPER INTESTINAL TRACT, EN 11/05/2015 [id number] INSPECTION OF LOWER INTESTINAL TRACT, EN 11/05/2015 [...] ABO+Rh group AP NRG Transfusion band number [id number] NRG Blood group antibody screen NEGATIVE NRG [...] CELLS LEUKO REDUCED AS1 TRANSFUSED 09/03/17 1752 [facility] Blood type T Indirect antibody screen panel - 09/03/17 11:30 ABO+Rh group AP NR Transfusion band number [id number] [facility] Blood group antibody screen NEGATIVE [facility] Whole blood hemoglobin and hematocrit panel - [...] plasma calcium measurement (mass/volume) 9.5 mg/dL 8.5-10.1 Blood CBC with ordered manual differential panel - 10/01/17 09:19 Blood leukocytes automated count (number/volume) 5.5 10*3/uL 4.3-11.0 Blood erythrocytes automated count (number/volume) 4.11 10*6/uL 4.35-5.85 Venous blood hemoglobin measurement (mass/volume) 11.0 g/dL 11.5-16.0 Blood hematocrit (volume fraction) 35 % 35-52 Automated erythrocyte mean corpuscular volume 86 [foz_us] 80-99 Automated erythrocyte mean corpuscular hemoglobin (mass per erythrocyte) 27 pg 25-34 Automated erythrocyte mean corpuscular hemoglobin concentration measurement ( mass/volume) 31 g/dL 32-36 Automated erythrocyte distribution width ratio 24.1 % 10.0-14.5 Automated blood platelet count (count/volume) 277 10*3/uL 130-400 Automated blood platelet mean volume measurement 9.6 [foz_us] 7.4-10.4 Automated blood neutrophils/100 leukocytes 60 % 42-75 Automated blood lymphocytes/100 leukocytes 28 % 12-44 Blood monocytes/100 leukocytes 4 % NRG Automated blood eosinophils/100 leukocytes 3 % 0-10 Automated blood basophils/100 leukocytes 1 % 0-10 Blood neutrophils automated count (number/volume) 3.3 10*3 1.8-7.8 Blood lymphocytes automated count (number/volume) 1.5 10*3 1.0-4.0 Blood monocytes automated count (number/volume) 0.5 10*3 0.0-1.0 Automated eosinophil count 0.2 10*3/uL 0.0-0.3 Automated blood basophil count (count/volume) 0.0 10*3/uL 0.0-0.1 Manual blood segmented neutrophils/100 leukocytes 65 % NRG Blood band neutrophils/100 leukocytes 0 % NRG Manual blood lymphocytes/100 leukocytes 28 % NRG Manual eosinophils/100 leukocytes in nose 2 % NRG Manual blood basophils/100 leukocytes 1 % NRG Blood anisocytosis detection by light microscopy MARKED NRG Blood hypochromia detection by light microscopy SLIGHT NRG Comprehensive metabolic panel - 10/01/17 09:19 Serum or plasma sodium measurement (moles/volume) 142 mmol/L 135-145 Serum or plasma potassium measurement (moles/volume) 4.1 mmol/L 3.6-5.0 Serum or plasma chloride measurement (moles/volume) 110 mmol/L 98-107 Carbon dioxide 24 mmol/L 21-32 Serum or plasma anion gap determination (moles/volume) 8 mmol/L 5-14 Serum or plasma urea nitrogen measurement (mass/volume) 28 mg/dL 7-18 Serum or plasma creatinine measurement (mass/volume) 1.04 mg/dL 0.60-1.30 Serum or plasma urea nitrogen/creatinine mass ratio 27 NRG Serum or plasma creatinine measurement with calculation of estimated glomerular filtration rate 53 NRG Serum or plasma glucose measurement (mass/volume) 86 mg/dL 70-105 Serum or plasma calcium measurement (mass/volume) 9.5 mg/dL 8.5-10.1 Serum or plasma total bilirubin measurement (mass/volume) 0.5 mg/dL 0.1-1.0 Serum or plasma alkaline phosphatase measurement (enzymatic activity/volume) 83 U/L 40-136 Serum or plasma aspartate aminotransferase measurement (enzymatic activity/ volume) 18 U/L 5-34 Serum or plasma alanine aminotransferase measurement (enzymatic activity/volume ) 16 U/L 0-55 Serum or plasma protein measurement (mass/volume) 7.4 g/dL 6.4-8.2 Serum or plasma albumin measurement (mass/volume) 4.3 g/dL 3.2-4.5 Serum or plasma amylase measurement (enzymatic activity/volume) - 10/01/17 09: 19 Serum or plasma amylase measurement (enzymatic activity/volume) 58 U /L 25-125 Lipase - 10/01/17 09:19 Lipase 26 U/L 8-78 Complete blood count (CBC) with automated white blood cell (WBC) differential - 04/08/18 10:45 Blood leukocytes automated count (number/volume) 5.3 10*3/uL 4.3-11.0 Blood erythrocytes automated count (number/volume) 3.48 10*6/uL 4.35-5.85 Venous blood hemoglobin measurement (mass/volume) 10.2 g/dL 11.5-16.0 Blood hematocrit (volume fraction) 33 % 35-52 Automated erythrocyte mean corpuscular volume 96 [foz_us] 80-99 Automated erythrocyte mean corpuscular hemoglobin (mass per erythrocyte) 29 pg 25-34 Automated erythrocyte mean corpuscular hemoglobin concentration measurement ( mass/volume) 31 g/dL 32-36 Automated erythrocyte distribution width ratio 14.7 % 10.0-14.5 Automated blood platelet count (count/volume) 294 10*3/uL 130-400 Automated blood platelet mean volume measurement 9.8 [foz_us] 7.4-10.4 Automated blood neutrophils/100 leukocytes 50 % 42-75 Automated blood lymphocytes/100 leukocytes 38 % 12-44 Blood monocytes/100 leukocytes 9 % 0-12 Automated blood eosinophils/100 leukocytes 2 % 0-10 Automated blood basophils/100 leukocytes 1 % 0-10 Blood neutrophils automated count (number/volume) 2.6 10*3 1.8-7.8 Blood lymphocytes automated count (number/volume) 2.0 10*3 1.0-4.0 Blood monocytes automated count (number/volume) 0.5 10*3 0.0-1.0 Automated eosinophil count 0.1 10*3/uL 0.0-0.3 Automated blood basophil count (count/volume) 0.1 10*3/uL 0.0-0.1 Comprehensive metabolic panel - 04/08/18 10:45 Serum or plasma sodium measurement (moles/volume) 139 mmol/L 135-145 Serum or plasma potassium measurement (moles/volume) 4.1 mmol/L 3.6-5.0 Serum or plasma chloride measurement (moles/volume) 107 mmol/L 98-107 Carbon dioxide 24 mmol/L 21-32 Serum or plasma anion gap determination (moles/volume) 8 mmol/L 5-14 Serum or plasma urea nitrogen measurement (mass/volume) 20 mg/dL 7-18 Serum or plasma creatinine measurement (mass/volume) 1.00 mg/dL 0.60-1.30 Serum or plasma urea nitrogen/creatinine mass ratio 20 NRG Serum or plasma creatinine measurement with calculation of estimated glomerular filtration rate 55 NRG Serum or plasma glucose measurement (mass/volume) 83 mg/dL 70-105 Serum or plasma calcium measurement (mass/volume) 9.7 mg/dL 8.5-10.1 Serum or plasma total bilirubin measurement (mass/volume) 0.4 mg/dL 0.1-1.0 Serum or plasma alkaline phosphatase measurement (enzymatic activity/volume) 73 U/L 40-136 Serum or plasma aspartate aminotransferase measurement (enzymatic activity/ volume) 16 U/L 5-34 Serum or plasma alanine aminotransferase measurement (enzymatic activity/volume ) 19 U/L 0-55 Serum or plasma protein measurement (mass/volume) 7.5 g/dL 6.4-8.2 Serum or plasma albumin measurement (mass/volume) 4.2 g/dL 3.2-4.5 CALCIUM CORRECTED 9.5 mg/dL 8.5-10.1 Serum or plasma C reactive protein measurement (mass/volume) - 04/08/18 10:45 Serum or plasma C reactive protein measurement (mass/volume) 0.12 mg /dL 0.00-0.50 Erythrocyte sedimentation rate by westergren method - 04/08/18 10:45 Erythrocyte sedimentation rate by westergren method 33 mm 0-30 Complete urinalysis with reflex to culture - 04/08/18 11:40 Urine color determination YELLOW NRG Urine clarity [...] count by microscopy (number/high power field ) RARE NRG Bacteria detection in urine sediment by light microscopy LARGE NRG Squamous epithelial cells detection in urine sediment by light microscopy 0-2 NRG Crystals detection in urine sediment by light microscopy NONE NRG Casts detection in urine sediment by light microscopy NONE NRG Mucus detection in urine sediment by light microscopy NEGATIVE NRG Complete urinalysis with reflex to culture YES NRG Encounters ACCT No. Visit Date/Time Discharge Status Pt. Type Provider Facility Loc./Unit Complaint [id number] 05/27/2014 14:11:00 05/27/2014 23:59:59 CLS Outpatient BOOKER CARMONA APRN 03/12/11 04/18/2018 11:23:21 04/18/2018 23:59:59 CLS Outpatient Joyce Sahu [facility] 11/13/2014 09:57:55 ACT Document Registration [id number] 04/08/2018 10:38:00 04/08/2018 13:13:00 DIS Emergency [facility] NAUSE;HEAD PAIN [id number] 02/25/2018 07:21:00 02/25/2018 23:59:59 CLS Outpatient DAMON CLAUDIO MD [facility] CARD CHEST PAIN,HTN,PAF,GERD [id number] 01/28/2018 10:53:00 01/28/2018 23:59:59 CLS Outpatient BRAVO SAHU DOLINE S [facility] RAD LOCALIZED SWELLING LEFT LOWER LEG [id number] 10/29/2017 10:30:00 10/29/2017 23:59:59 CLS Preadmit DIANNA ZURITA APRN [facility] RAD ANNUAL SCREENING [id number] 10/01/2017 09:00:00 10/01/2017 23:59:59 CLS Outpatient BRAVO SAHU DOLINE S [facility] RAD PANCREATIC MASS F/ U [id number] 09/13/2017 01:21:00 09/13/2017 02:44:00 DIS Emergency BABAK PINEDO MD [facility] ER A-FIB [id number] 09/03/2017 13:00:00 09/04/2017 20:46:00 DIS Inpatient BRAVO SAHU DOLINE S [facility] 4TH ANEMIA [id number] 08/27/2017 09:45:00 08/27/2017 23:59:59 CLS Preadmit BRAVO SAHU DOLINE S [facility] RAD SCREENING [id number] 08/06/2017 11:50:00 08/06/2017 23:59:59 CLS Outpatient DAMON CLAUDIO MD [facility] CARD CHEST PAIN [id number] 07/02/2017 15:11:00 07/02/2017 17:30:00 DIS Emergency JH LAGOS MD [facility] ER A-FIB EPISODE [id number] 03/31/2017 19:11:00 03/31/2017 22:03:00 DIS Emergency MARIE HAN DO [facility] ER DIZZINESS [id number] 2017 11:34:00 2017 17:44:00 DIS Emergency HEATHER LUKE MD [facility] ER WEAKNESS/VISION DISTURBANCE [id number] 03/11/2017 22:30:00 03/11/2017 23:40:00 DIS Emergency BABAK PINEDO MD [facility] ER RT SIDED ABDOMINAL PAIN [id number] 12/07/2016 21:01:00 12/08/2016 00:15:00 DIS Emergency 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 [facility] ER STOMACH PAIN [id number] 09/12/2016 10:08:00 09/12/2016 23:59:59 CLS Outpatient DAMON CLAUDIO MD [facility] LAB CHEST PAIN,HTN,PAF,GI BLEED [id number] 02/29/2016 09:38:00 02/29/2016 23:59:59 CLS Outpatient BRAVO SAHU DOLINE S [facility] RAD DYSPHAGIA,WEAKNESS, FATIGUE,ANEMIA,EDEMA [id number] 01/05/2016 15:26:00 01/05/2016 23:59:59 CLS Outpatient BRAVO SAHU DOLINE S [facility] RAD SCREENING [id number] 12/25/2015 06:17:00 12/26/2015 13:30:00 DIS Inpatient BRAVO SAHU DOLINE S [facility] ICU CHEST PAIN [id number] 11/10/2015 07:03:00 11/10/2015 23:59:59 CLS Outpatient BEST HOOVER MD [facility] SDC GI BLEED,ANEMIA [id number] 11/04/2015 08:34:00 11/06/2015 14:30:00 DIS Inpatient JOYCE SAHU DO S [facility] 4TH ANEMIA [id number] 07/29/2015 05:35:00 07/29/2015 23:59:59 CLS Outpatient BEST HOOVER MD [facility] PREOP COLONOSCOPY [id number] 05/09/2015 22:36:00 05/10/2015 00:45:00 DIS Emergency BABAK PINEDO MD [facility] ER SOA [id number] 11/13/2014 09:55:00 11/13/2014 12:10:00 DIS Emergency 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 [facility] ER FALL/LEFT KNEE INJ [id number] 06/24/2014 14:51:00 06/24/2014 23:59:59 CLS Outpatient DAMON CLAUDIO MD [facility] RAD CAROTID BRUIT, CP,HTN, PAF [id number] 05/18/2014 03:30:00 05/18/2014 12:00:00 DIS Inpatient LARRY PLUNKETT MD [facility] CSD CHEST PAIN [id number] 04/21/2014 21:20:00 04/22/2014 19:25:00 DIS Inpatient ORENDER DO JOYCE S [facility] ICU A FIB WITH RVR [id number] 09/18/2013 12:50:00 09/18/2013 23:59:59 CLS Outpatient EDVINNDER DO, JOYCE S [facility] RAD CEPHALGIA, DIZZINESS [id number] 09/02/2013 13:23:00 09/02/2013 23:59:59 CLS Outpatient EDVINNDER DO, JOYCE S [facility] RAD CEPHALGIA, DIZZINESS [id number] 12/07/2012 06:17:00 12/07/2012 09:07:00 DIS Emergency MARIE HAN DO [facility] ER SOA;ABD PAIN [id number] 11/22/2012 18:28:00 11/22/2012 23:59:59 CLS Outpatient [id number] 11/19/2012 18:41:00 11/21/2012 17:00:00 DIS Inpatient RACHELLEER DO JOYCE S [facility] 4TH GI BLEED [id number] 11/09/2012 14:58:00 11/10/2012 14:11:00 DIS Inpatient ALDAIR BRADEN, BRENDAN Mata [facility] 4TH BLURRED VISION NAUSEA DIZZY [id number] 10/24/2012 14:32:00 10/24/2012 16:22:00 DIS Emergency BABAK PINEDO MD [facility] ER FALL/FACIAL INJURY [id number] 10/18/2012 20:15:00 10/19/2012 12:30:00 DIS Inpatient ORENDER DO, JOYCE S [facility] ICU A FIB; RVR [id number] 01/25/2018 08:50:00 Document Registration [id number] 01/23/2018 08:53:00 Document Registration [id number] 01/17/2018 15:39:00 Document Registration [id number] 06/24/2014 15:32:00 Document Registration [id number] 06/24/2014 15:31:00 Document Registration [id number] 06/24/2014 15:31:00 Document Registration [id number] 09/29/2012 03:08:00 Document Registration [id number] 09/16/2012 11:30:00 Document Registration [id number] 07/11/2012 07:13:00 Document Registration [id number] 06/13/2012 22:45:00 Document Registration [id number] 01/02/2012 01:06:00 Document Registration [id number] 03/14/2011 09:46:00 Document Registration [id number] 01/23/2011 00:30:00 Document Registration [id number] 02/03/2010 09:59:00 Document Registration [id number] 11/30/2009 11:00:00 Document Registration [id number] 11/25/2009 13:10:00 Document Registration [id number] 10/21/2009 14:31:00 Document Registration [id number] 09/30/2009 08:17:00 Document Registration [id number] 09/28/2009 09:40:00 Document Registration [id number] 04/09/2009 00:08:00 Document Registration
[2018-05-02] MEDS ORDERED: NS IV 1000 ML 1,000 ML IV STA (22:36)
[2018-05-02] MEDS ORDERED: ONDANSETRON 4 MG/2 ML (SDV) Z0FRAN IVP ONE (22:45)
--- NOTE | 2018-05-02 22:51 | ED Abdominal Pain ---
General Chief Complaint: Abdominal/GI Problems Stated Complaint: UPPER ABD PAIN,NAUSEA Nursing Triage Note: PT STATES THAT SHE HAS BEEN NAUSEOUS SINCE HER 1500 THANKSGIVING MEAL THIS AFTERNOON. STATES SHE IS EXPERIENCING DIFFUSE ABDOMINAL PAIN. STATES SHE HAS A HX OF HIATAL HERNIAS THATS WHERE SURGICALLY CORRECTED Sepsis Screen: No Definite Risk Source of Information: Patient Exam Limitations: No Limitations History of Present Illness Date Seen by Provider: May 02, 2018 Time Seen by Provider: 22:28 Initial Comments Here with report of nausea and vomiting. Nausea started about 3 p.m. after eating dinner. She has had difficulty with vomiting due to history of hiatal hernia repair. Also has difficulty with bowel movements. Patient has history of spinal cord injury and so has difficulty with bowel movements. This usually results in constipation. She has had constipation to the point that caused vomiting but not bowel obstruction in the past. She did vomit some when she got here tonight. Denies fevers. Denies breathing problems. Pain is in the lower abdomen and a little bit more in the upper abdomen. Timing/Duration: 4-6 Hours Severity/Quality: Moderate Location: Generalized Abdomen Radiation: No Radiation Activities at Onset: None Modifying Factors: Worsens With Eating; Improves With Vomiting Associated Symptoms: No Chest Pain, No Fever/Chills; Nausea/Vomiting; No Shortness of Air, No Weakness Allergies and Home Medications Allergies Coded Allergies: Beta-Blockers (Beta-Adrenergic Bloc (Unverified Allergy, Unknown, 11/20/12) atenolol (Verified Allergy, Unknown, 04/05/07) Home Medications Acetaminophen 500 Mg Tablet, 1,000 MG PO TID, (Reported) TAKES 2 (500MG) TABLETS Cholecalciferol (Vitamin D3) 1,000 Unit Capsule, 1,000 UNIT PO DAILY, (Reported) Cyanocobalamin (Vitamin B-12) 1,000 Mcg Tablet, 1,000 MCG PO DAILY, (Reported) Diltiazem HCl 180 Mg Cap.er.24h, 180 MG PO HS, (Reported) Fluticasone Propionate 16 Gm [place].susp, 2 SPRAYS NS DAILY PRN for ALLERGIES, ( Reported) [place] 3 Polyunsat Fatty Acids 1,000 Mg Cap, 1,000 MG PO HS, (Reported) Pantoprazole Sodium 40 Mg Tablet.dr, 40 MG PO DAILY, (Reported) Propafenone HCl 225 Mg Cap, 225 MG PO TID, (Reported) Rivaroxaban 20 Mg Tablet, 20 MG PO HS, (Reported) Sennosides/Docusate Sodium 1 Each Tablet, 1 TAB PO BID, (Reported) Patient Home Medication List Home Medication List Reviewed: Yes Review of Systems Review of Systems Constitutional: see HPI; No chills, No fever EENTM: No Symptoms Reported Respiratory: No Symptoms Reported Cardiovascular: No Symptoms Reported Gastrointestinal: See HPI, Abdominal Pain, Constipated; Denies Diarrhea; Nausea , Vomiting Genitourinary: No Symptoms Reported Musculoskeletal: no symptoms reported Skin: no symptoms reported All Other Systems Reviewed Negative Unless Noted: Yes Past Mvaejmt-Bkvqfj-Ofuvba Hx Past Med/Social Hx: Reviewed Nursing Past Med/Soc Hx Patient Social History Alcohol Use: Denies Use Recreational Drug Use: No Smoking Status: Never a Smoker 2nd Hand Smoke Exposure: No Recent Foreign Travel: No Contact w/Someone Who Travel: No Recent Infectious Disease Expo: No Recent Hopitalizations: Yes (D/C 09/03/17) Immunizations Up To Date Tetanus Booster (TDap): Unknown PED Vaccines UTD: No Date of Pneumonia Vaccine: Mar 11, 2011 Date of Influenza Vaccine: May 04, 2014 Seasonal Allergies Seasonal Allergies: Yes Past Medical History Surgeries: Yes Abdominal, Appendectomy, Section, Gallbladder, 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, Neurological, Oophorectomy Respiratory: No Currently Using CPAP: No Currently Using BIPAP: No Cardiac: Yes (RBBB) Atrial Fibrillation, Heart Murmur, Hypertension, Valvular Heart Disease Neurological: Yes Headaches /Migraines, Neuropathy : No 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 Disorders: Yes (CERVICAL DYSPLASIA) Female 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 Disorders: Denies 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 Sexually Transmitted Disease: No HIV/AIDS: No Genitourinary: Yes (RENAL INSUFFICIENCY) Kidney Infection, Bladder Infection, Renal Failure Gastrointestinal: Yes Gastroesophageal Reflux, Gastrointestinal Bleed, Chronic Constipation, Hiatal Hernia, Gall Bladder Disease Musculoskeletal: Yes (KNEES, BACK, HIPS) Arthritis, Chronic Back Pain Endocrine: Yes (Pre Diabetic) Diabetes, Non-Insulin dep HEENT: No Loss of Vision: Denies Hearing Impairment: Denies Cancer: Yes Bone Did You Recieve Any Treatments: Yes What Type of Treatment Did You: Chemotherapy, Radiation, Surgical Intervention Psychosocial: Yes Anxiety Integumentary: No Blood Disorders: Yes (ANEMIA) Adverse Reaction/Blood Tranf: No Family Medical History Reviewed Nursing Family Hx Arthritis 19 MOTHER, Onset:30's - 40 (RA) Cardiovascular disease 19 MOTHER, Onset:40's - 50 Completed stroke 19 MOTHER, Onset:60 years & older Headache disorder 19 FATHER, Onset:Unknown (severe sinus headaches) Hypertension 19 MOTHER, Onset:50's - 60 Myocardial infarction 19 MOTHER, Onset:60 years & older Psychosocial problem 19 FATHER, Onset:Unknown No Family History of: AIDS Abdominal aortic aneurysm Yell's disease Alcoholism Alzheimer's disease Aphasia Asthma Cancer of mouth Cataracts Colon cancer Congenital disease Congenital heart disease Coronary thrombosis Cystic fibrosis Deafness or hearing loss Dementia Diabetes mellitus Drug abuse Dysphasia Fibrocystic disease of breast Gastroenteritis Glaucoma Hypercholesterolemia Infertility Kidney disease Neoplasm Not obtainable due to adoption Osteoporosis Parkinson's disease Prostate cancer Respiratory disorder Seizure disorder Severe allergy Thyroid disease Tuberculosis Visual disorder Heart Disease Physical Exam Vital Signs Vital Signs - First Documented 05/02/18 22:27 Pulse 88 Resp 20 B/P (MAP) 169/72 (104) Pulse Ox 100 O2 Delivery Room Air Capillary Refill : Less Than 3 Seconds Height/Weight/BMI Height: 5'6.00" Weight: 186lbs. 0.0oz. 84.563517pf; 31.2 BMI Method:Stated General Appearance: WD/WN, no apparent distress HEENT: PERRL/EOMI, pharynx normal Neck: full range of motion, supple Respiratory: lungs clear, normal breath sounds Cardiovascular: regular rate, rhythm, no murmur Gastrointestinal: soft; No guarding, No rebound; tenderness (mild diffuse) Extremities: non-tender, normal inspection Back: normal inspection, no CVA tenderness, no vertebral tenderness Neurologic/Psychiatric: alert, oriented x 3 Skin: normal color, warm/dry Progress/Results/Core Measures Results/Orders Lab Results Laboratory Tests Test 05/02/18 22:52 Range/Units White Blood Count 12.3 H 4.3-11.0 10^3/uL Red Blood Count 3.07 L 4.35-5.85 10^6/uL Hemoglobin 8.8 L 11.5-16.0 G/DL Hematocrit 28 L 35-52 % Mean Corpuscular Volume 91 80-99 FL Mean Corpuscular Hemoglobin 29 25-34 PG Mean Corpuscular Hemoglobin Concent 32 32-36 G/DL Red Cell Distribution Width 14.3 10.0-14.5 % Platelet Count 342 130-400 10^3/uL Mean Platelet Volume 9.9 7.4-10.4 FL Neutrophils (%) (Auto) 78 H 42-75 % Lymphocytes (%) (Auto) 15 12-44 % Monocytes (%) (Auto) 6 0-12 % Eosinophils (%) (Auto) 1 0-10 % Basophils (%) (Auto) 0 0-10 % Neutrophils # (Auto) 9.6 H 1.8-7.8 X 10^3 Lymphocytes # (Auto) 1.8 1.0-4.0 X 10^3 Monocytes # (Auto) 0.8 0.0-1.0 X 10^3 Eosinophils # (Auto) 0.1 0.0-0.3 10^3/uL Basophils # (Auto) 0.0 0.0-0.1 10^3/uL Sodium Level 140 135-145 MMOL/L Potassium Level 4.1 3.6-5.0 MMOL/L Chloride Level 105 98-107 MMOL/L Carbon Dioxide Level 21 21-32 MMOL/L Anion Gap 14 5-14 MMOL/L Blood Urea Nitrogen 36 H 7-18 MG/DL Creatinine 1.35 H 0.60-1.30 MG/DL Estimat Glomerular Filtration Rate 39 BUN/Creatinine Ratio 27 Glucose Level 142 H 70-105 MG/DL Calcium Level 10.0 8.5-10.1 MG/DL Corrected Calcium 9.7 8.5-10.1 MG/DL Total Bilirubin 0.4 0.1-1.0 MG/DL Aspartate Amino Transf (AST/SGOT) 16 5-34 U/L Alanine Aminotransferase (ALT/SGPT) 17 0-55 U/L Alkaline Phosphatase 77 40-136 U/L Total Protein 7.5 6.4-8.2 GM/DL Albumin 4.4 3.2-4.5 GM/DL Amylase Level 558 H 25-125 U/L Lipase 1432 H 8-78 U/L My Orders Orders - ENEIDA NOBLE MD Amylase (05/02/18 22:36) Cbc With Automated Diff (05/02/18 22:36) Comprehensive Metabolic Panel (05/02/18 22:36) Lipase (05/02/18 22:36) I-Stat Bedside Testing (05/02/18 22:36) Ondansetron Injection (Zofran Injectio (05/02/18 22:45) Ns Iv 1000 Ml (Sodium Chloride 0.9%) (05/02/18 22:36) Saline Lock/Iv-Start (05/02/18 22:36) Fentanyl Injection (Sublimaze Injection (05/02/18 23:22) Fentanyl Injection (Sublimaze Injection (05/02/18 23:23) Ct Abdomen/Pelvis Wo (05/02/18 23:31) Ng Tube Insert & Assessment (05/03/18 00:22) Medications Given in ED Current Medications Medications Dose Ordered Sig/Larry Route Start Time Stop Time Status Last Admin Dose Admin Ondansetron HCl 4 mg ONCE ONCE IVP 05/02/18 22:45 05/02/18 22:46 DC 05/02/18 23:25 4 MG Vital Signs/I&O 05/02/18 22:27 Pulse 88 Resp 20 B/P (MAP) 169/72 (104) Pulse Ox 100 O2 Delivery Room Air Blood Pressure Mean: 104 Progress Progress Note : Progress Note Seen and evaluated. IV, labs, and will saline 1 L bolus, Zofran [address] abdomen and pelvis ordered after i-STAT shows creatinine of 1.2. Monitor patient. Fentanyl 50 g IV for pain. GFR calculated to be in the 40s so CT changed to a noncontrast. Monitor patient. 0022: CT findings concerning for small bowel obstruction and labs show pancreatitis. We will get NG tube placed. I did discuss the case with Dr. Reed and he is seen the patient in the emergency department and agrees with NG tube and will see the patient in consult. I did discuss the case with Dr. 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 All findings concerns discussed with the patient who agrees with plan Diagnostic Imaging Diagonstic Imaging: CT Plain Films/CT/US/NM/MRI: abdomen, pelvis Comments Findings of high-grade distal small bowel obstruction. Reviewed: [facility] by [facility] Departure Communication (Admissions) Time/Spoke to Admitting Phy: 00:22 Time/Spoke to Consulting Phy: 00:10 Impression Primary Impression: Small bowel obstruction Additional Impression: Acute pancreatitis Qualified Codes: K85.90 - Acute pancreatitis without necrosis or infection, unspecified Disposition: ADMITTED INPATIENT Condition: Stable Admissions Decision to Admit Reason: Admit from ER (General) Decision to Admit/Date: May 03, 2018 Time/Decision to Admit Time: 00:27 Departure-Patient Inst. Referrals: ANTHONY SAHU DO (PCP/Family) Primary Care Physician ENEIDA NOBLE MD May 02, 2018 22:51
[2018-05-02 23:06] LABS: BASOPHILS % (AUTO) 0 % (0-10); EOSINOPHILS # (AUTO) 0.1 10^3/uL (0.0-0.3); EOSINOPHILS % (AUTO) 1 % (0-10); HEMATOCRIT 28 % (35-52); HEMOGLOBIN 8.8 G/DL (11.5-16.0); LYMPHOCYTES # (AUTO) 1.8 X 10^3 (1.0-4.0); LYMPHOCYTES % (AUTO) 15 % (12-44); MEAN CORPUSCULAR HEMOGLOBIN 29 PG (25-34); MEAN CORPUSCULAR HGB CONC 32 G/DL (32-36); MEAN CORPUSCULAR VOLUME 91 FL (80-99); MEAN PLATELET VOLUME 9.9 FL (7.4-10.4); MONOCYTES # (AUTO) 0.8 X 10^3 (0.0-1.0); MONOCYTES % (AUTO) 6 % (0-12); NEUTROPHILS # (AUTO) 9.6 X 10^3 (1.8-7.8); NEUTROPHILS % (AUTO) 78 % (42-75); PLATELET COUNT 342 10^3/uL (130-400); RED BLOOD COUNT 3.07 10^6/uL (4.35-5.85); RED CELL DISTRIBUTION WIDTH 14.3 % (10.0-14.5); WHITE BLOOD COUNT 12.3 10^3/uL (4.3-11.0)
[2018-05-02] MEDS ORDERED: fentaNYL INJECTION 100 MCG/2 ML AMP IVP STA (23:22)
[2018-05-02] MEDS ORDERED: fentaNYL INJECTION 100 MCG/2 ML AMP ONE (23:23)
[2018-05-02 23:26] LABS: ALBUMIN 4.4 GM/DL (3.2-4.5); BILIRUBIN,TOTAL 0.4 MG/DL (0.1-1.0); CREATININE SERUM 1.35 MG/DL (0.60-1.30); POTASSIUM 4.1 MMOL/L (3.6-5.0); TOTAL PROTEIN 7.5 GM/DL (6.4-8.2)
--- OUTSIDE RECORDS SUMMARY | 2018-05-03 00:55 | XMS REPORT | Clinical Summary ---
Author Author [facility] Organization [facility] Address Unknown Phone Unavailable Care Team Providers Care Vocational Services Specialist Name Role Phone Amanda Ruffin MD Unavailable Bean Carrera MD Unavailable Anselmo Alex APRN Unavailable Unavailable Joyce Sahu MD PCP Matt York MD Unavailable Unavailable Source Comments Some departments are not documenting in the electronic medical record. If you do not see the information that you expected, contact Release of Information in the Health Information Management department at [phone] for further assistance in locating additional records.[facility] Allergies Active Allergy Reactions Severity [...]
[2018-05-03 01:00] VITALS: BP 154/67
--- OUTSIDE RECORDS SUMMARY | 2018-05-03 01:01 | XMS REPORT | Continuity of Care Document ---
Author Author [facility] of [facility] Address Unknown Phone Unavailable Allergies Active Description Code Type Severity Reaction Onset Reported/Identified Relationship to Patient Clinical Status Yes atenolol [id number] Drug Allergy Unknown N/A 04/05/2007 Yes Beta-Blockers (Beta-Adrenergic Bloc [id number] Drug Allergy Unknown N/A 05/2013 Yes atenolol [...] Ot 719.46 JOINT PAIN-L/LEG 11/13/2014 MARGO JOHNSON MERCHANDISE STOCKER Ot 844.9 SPRAIN OF KNEE LEG NOS 11/13/2014 MARGO JOHNSON MERCHANDISE STOCKER Ot E000.8 OTHER EXTERNAL CAUSE STATUS 11/13/2014 MARGO JOHNSON MERCHANDISE STOCKER Ot E888.9 FALL NOS 05/10/2015 KHRIS BRADEN, [...] NORMALLY 05/10/2015 BABAK PINEDO MD Ot Z79.01 [employer] (CURRENT) USE OF 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 05/10/2015 BABAK PINEDO [...] S Ot I25.10 ATHSCL HEART DISEASE OF [place] CORONARY 11/05/2015 JOYCE SAHU DO S Ot [...] 11/05/2015 JOYCE SAHU DO S Ot Y84.8 [facility] MEDICAL PROCEDURES CAUSE ABN REACT/C 11/05/2015 JOYCE SAHU DO S Ot Z79.01 [employer] (CURRENT) USE OF 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 11/05/2015 JOYCE SAHU [...] S Ot I25.10 ATHSCL HEART DISEASE OF [place] CORONARY 11/05/2015 EDVINMORE PLATT JOYCE S Ot [...] REACT/C 11/05/2015 EDVINMORE JOYCE PLATT Ot Z79.01 [employer] (CURRENT) USE OF 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 11/05/2015 EDVINMORE PLATTJOYCE [...] DO Ot I25.10 ATHSCL HEART DISEASE OF [place] CORONARY 11/06/2015 JOYCE SAHU DO Ot I48.0 [...] GLUCOSE 11/06/2015 JOYCE SAHU DO Ot Y84.8 [facility] MEDICAL PROCEDURES CAUSE ABN REACT/C 11/06/2015 CONOR PLATT JOYCE Ricci Ot Z79.01 [employer] (CURRENT) USE OF 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 11/06/2015 CONOR PLATT [...] F41.9 ANXIETY DISORDER, UNSPECIFIED 12/26/2015 ORENDER DO, JOCYE S Ot I10 ESSENTIAL (PRIMARY) HYPERTENSION 12/26/2015 ORENDER DO, JOYCE S Ot I25.10 ATHSCL HEART DISEASE OF [place] CORONARY 12/26/2015 ORENDER DO, JOYCE S Ot [...] S Ot I25.10 ATHSCL HEART DISEASE OF [place] CORONARY 12/26/2015 ORENDER DO, JOYCE S Ot [...] DIABETES MELLITUS WITHOUT COMPLIC 12/08/2016 MARGO JOHNSON MERCHANDISE STOCKER Ot I10 ESSENTIAL (PRIMARY) HYPERTENSION 12/08/2016 MARGO JOHNSON MERCHANDISE STOCKER Ot I48.91 UNSPECIFIED ATRIAL FIBRILLATION 12/08/2016 MARGO JOHNSON MERCHANDISE STOCKER Ot K21.9 GASTRO-ESOPHAGEAL REFLUX DISEASE WITHOUT 12/08/2016 MARGO JOHNSON MERCHANDISE STOCKER Ot K59.00 CONSTIPATION, UNSPECIFIED 12/08/2016 MARGO JOHNSON MERCHANDISE STOCKER Ot Z79.899 OTHER [facility] (CURRENT) DRUG THERAPY 03/11/2017 BABAK PINEDO MD [...] COLLAPSE 2017 HEATHER LUKE MD Ot Z79.01 [facility] (CURRENT) USE OF 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 2017 HEATHER LUKE [...] COLLAPSE 03/14/2017 HEATHER LUKE MD Ot Z79.01 [employer] (CURRENT) USE OF 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 03/14/2017 HEATHER LUKE [...] COLLAPSE 03/18/2017 HEATHER LUKE MD Ot Z79.01 [employer] (CURRENT) USE OF 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 03/18/2017 HEATHRE LUKE MD Ot Z85.830 PERSONAL HISTORY OF MALIGNANT NEOPLASM O 03/18/2017 HEATHER LUKE MD Ot Z87.59 PERSONAL HISTORY OF COMP OF PREG, CHLDBR 03/18/2017 HEATHER LUKE MD Ot Z90.49 ACQUIRED ABSENCE OF OTHER SPECIFIED PART 03/18/2017 HEATHER ULKE MD Ot Z90.710 ACQUIRED ABSENCE OF BOTH [...] 03/31/2017 OLAMIDE HAN DOA Ron Ot Z79.01 [employer] (CURRENT) USE OF 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 03/31/2017 OLAMIDE HAN [...] GIDDINESS 04/03/2017 GUILLE OLAMIDEA K Ot Z79.01 [employer] (CURRENT) USE OF 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 04/03/2017 GUILLE OLAMIDEA [...] 04/09/2017 GUILLE PLATT MARIE Velasquez Ot Z79.01 [employer] (CURRENT) USE OF 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 04/09/2017 GUILLE PLATT [...] DAMON CLAUDIO MD Ot R00.2 PALPITATIONS 08/13/2017 DMAON CLAUDIO MD Ot R07.89 OTHER CHEST PAIN [...] WITHOUT 09/13/2017 BABAK PINEDO MD, Ot Z79.01 [employer] (CURRENT) USE OF 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 09/13/2017 BABAK PINEDO MD, Ot Z79.51 [facility] (CURRENT) USE OF INHALED STERO 09/13/2017 BABAK [...] WITHOUT 09/17/2017 BABAK PINEDO MD, Ot Z79.01 [facility] (CURRENT) USE OF 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 09/17/2017 BABAK PINEDO MD, Ot Z79.51 [facility] (CURRENT) USE OF INHALED STERO 09/17/2017 BABAK [...] ANUS AND RECTUM 09/18/2017 KIKO BRADEN, BEST Molnia Ot Z01.818 ENCOUNTER FOR OTHER PREPROCEDURAL EXAMIN [...] WITHOUT 09/19/2017 BABAK PINEDO MD, Ot Z79.01 [facility] (CURRENT) USE OF 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 09/19/2017 BABAK PINEDO MD, Ot Z79.51 [facility] (CURRENT) USE OF INHALED STERO 09/19/2017 BABAK [...] Ot D64.9 ANEMIA, UNSPECIFIED 12/07/2017 ORENDER DO, JOYCE S Ot I10 ESSENTIAL (PRIMARY) HYPERTENSION 12/07/2017 [...] R11.0 NAUSEA 04/08/2018 BERNOT, JOSE Ot Z79.01 [employer] (CURRENT) USE OF 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 04/08/2018 BERNOT, JOSE Ot Z79.51 [facility] (CURRENT) USE OF INHALED STERO 04/08/2018 BERNOT, [...] R11.0 NAUSEA 04/10/2018 BERNOT, JOSE Ot Z79.01 [employer] (CURRENT) USE OF 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 04/10/2018 BERNOT, JOSE Ot Z79.51 [employer] (CURRENT) USE OF INHALED STERO 04/10/2018 BERNOT, JOSE Ot Z82.49 FAMILY HX OF ISCHEM HEART DIS AND OTH DI 04/10/2018 JOSE GODFREY Ot Z85.830 PERSONAL HISTORY OF MALIGNANT NEOPLASM O 04/10/2018 JUAN GODFREYIS Ot Z87.19 PERSONAL HISTORY OF OTHER DISEASES OF TH 04/10/2018 JUAN GODFREYIS Ot Z87.448 PERSONAL HISTORY OF OTHER DISEASES OF UR 04/10/2018 JUAN GODFREYIS Ot Z88.8 ALLERGY STATUS TO [facility] DRUG/MEDS/BIOL SUB 04/10/2018 JUAN GODFREYIS Ot Z90.710 [...] [ EGD] W/CLOSE 11/20/2012 45.23 COLONOSCOPY 11/20/2012 93843 [employer] 05/29/2014 04313 SLEEP STUDY ([facility]- SLEEP STUDY) 06/22/2014 [id number] INSPECTION OF UPPER INTESTINAL TRACT, EN 11/05/2015 [id number] INSPECTION OF LOWER INTESTINAL TRACT, EN 11/05/2015 [...] ABO+Rh group AP NRG Transfusion band number [id number] NRG Blood group antibody screen NEGATIVE NRG [...] CELLS LEUKO REDUCED AS1 TRANSFUSED 09/03/17 1752 [facility] Blood type T Indirect antibody screen panel - 09/03/17 11:30 ABO+Rh group AP NR Transfusion band number [id number] [facility] Blood group antibody screen NEGATIVE [facility] Whole blood hemoglobin and hematocrit panel - [...] Status Pt. Type Provider Facility Loc./Unit Complaint [id number] 05/27/2014 14:11:00 05/27/2014 23:59:59 CLS Outpatient BOOKER CARMONA APRN 03/12/11 04/18/2018 11:23:21 04/18/2018 23:59:59 CLS Outpatient Joyce Sahu [facility] 11/13/2014 09:57:55 ACT Document Registration [id number] 04/08/2018 10:38:00 04/08/2018 13:13:00 DIS Emergency BERNABAJUANIS [facility] ER NAUSE;HEAD PAIN [id number] 02/25/2018 07:21:00 02/25/2018 23:59:59 CLS Outpatient DAMON CLAUDIO MD [facility] CARD CHEST PAIN,HTN,PAF,GERD [id number] 01/28/2018 10:53:00 01/28/2018 23:59:59 CLS Outpatient BRAVO SAHU DOLINE S [facility] RAD LOCALIZED SWELLING LEFT LOWER LEG [id number] 10/29/2017 10:30:00 10/29/2017 23:59:59 CLS Preadmit DIANNA ZURITA APRN [facility] RAD ANNUAL SCREENING [id number] 10/01/2017 09:00:00 10/01/2017 23:59:59 CLS Outpatient BRAVO SAHU DOLINE S [facility] RAD PANCREATIC MASS F/ U [id number] 09/13/2017 01:21:00 09/13/2017 02:44:00 DIS Emergency BABAK PINEDO MD [facility] ER A-FIB [id number] 09/03/2017 13:00:00 09/04/2017 20:46:00 DIS Inpatient BRAVO SAHU DOLINE S [facility] 4TH ANEMIA [id number] 08/27/2017 09:45:00 08/27/2017 23:59:59 CLS Preadmit BRAVO SAHU DOLINE S [facility] RAD SCREENING [id number] 08/06/2017 11:50:00 08/06/2017 23:59:59 CLS Outpatient DAMON CLAUDIO MD [facility] CARD CHEST PAIN [id number] 07/02/2017 15:11:00 07/02/2017 17:30:00 DIS Emergency JH LAGOS MD [facility] ER A-FIB EPISODE [id number] 03/31/2017 19:11:00 03/31/2017 22:03:00 DIS Emergency MARIE HAN DO [facility] ER DIZZINESS [id number] 2017 11:34:00 2017 17:44:00 DIS Emergency HEATHER LUKE MD [facility] ER WEAKNESS/VISION DISTURBANCE [id number] 03/11/2017 22:30:00 03/11/2017 23:40:00 DIS Emergency BABAK PINEDO MD [facility] ER RT SIDED ABDOMINAL PAIN [id number] 12/07/2016 21:01:00 12/08/2016 00:15:00 DIS Emergency MARGO JOHNSON MERCHANDISE STOCKER [facility] ER STOMACH PAIN [id number] 09/12/2016 10:08:00 09/12/2016 23:59:59 CLS Outpatient DAMON CLAUDIO MD [facility] LAB CHEST PAIN,HTN,PAF,GI BLEED [id number] 02/29/2016 09:38:00 02/29/2016 23:59:59 CLS Outpatient BRAVO SAHU DOLINE S [facility] RAD DYSPHAGIA,WEAKNESS, FATIGUE,ANEMIA,EDEMA [id number] 01/05/2016 15:26:00 01/05/2016 23:59:59 CLS Outpatient BRAVO SAHU DOLINE S [facility] RAD SCREENING [id number] 12/25/2015 06:17:00 12/26/2015 13:30:00 DIS Inpatient BRAVO SAHU DOLINE S [facility] ICU CHEST PAIN [id number] 11/10/2015 07:03:00 11/10/2015 23:59:59 CLS Outpatient BEST HOOVER MD [facility] SDC GI BLEED,ANEMIA [id number] 11/04/2015 08:34:00 11/06/2015 14:30:00 DIS Inpatient JOYCE SAHU DO S [facility] 4TH ANEMIA [id number] 07/29/2015 05:35:00 07/29/2015 23:59:59 CLS Outpatient BEST HOOVER MD [facility] PREOP COLONOSCOPY [id number] 05/09/2015 22:36:00 05/10/2015 00:45:00 DIS Emergency BABAK PINEDO MD [facility] ER SOA [id number] 11/13/2014 09:55:00 11/13/2014 12:10:00 DIS Emergency MAGRO JOHNSON MERCHANDISE STOCKER [facility] ER FALL/LEFT KNEE INJ [id number] 06/24/2014 14:51:00 06/24/2014 23:59:59 CLS Outpatient DAMON CLAUDIO MD [facility] RAD CAROTID BRUIT, CP,HTN, PAF [id number] 05/18/2014 03:30:00 05/18/2014 12:00:00 DIS Inpatient LARRY PLUNKETT MD [facility] CSD CHEST PAIN [id number] 04/21/2014 21:20:00 04/22/2014 19:25:00 DIS Inpatient ORENDER DO JOYCE S [facility] ICU A FIB WITH RVR [id number] 09/18/2013 12:50:00 09/18/2013 23:59:59 CLS Outpatient EDVINNDER DO, JOYCE S [facility] RAD CEPHALGIA, DIZZINESS [id number] 09/02/2013 13:23:00 09/02/2013 23:59:59 CLS Outpatient EDVINNDER DO, JOYCE S [facility] RAD CEPHALGIA, DIZZINESS [id number] 12/07/2012 06:17:00 12/07/2012 09:07:00 DIS Emergency MARIE HAN DO [facility] ER SOA;ABD PAIN [id number] 11/22/2012 18:28:00 11/22/2012 23:59:59 CLS Outpatient [id number] 11/19/2012 18:41:00 11/21/2012 17:00:00 DIS Inpatient RACHELLEER DO JOYCE S [facility] 4TH GI BLEED [id number] 11/09/2012 14:58:00 11/10/2012 14:11:00 DIS Inpatient ALDAIR BRADEN, BRENDAN Mata [facility] 4TH BLURRED VISION NAUSEA DIZZY [id number] 10/24/2012 14:32:00 10/24/2012 16:22:00 DIS Emergency BABAK PINEDO MD [facility] ER FALL/FACIAL INJURY [id number] 10/18/2012 20:15:00 10/19/2012 12:30:00 DIS Inpatient ORENDER DO, JOYCE S [facility] ICU A FIB; RVR [id number] 01/25/2018 08:50:00 Document Registration [id number] 01/23/2018 08:53:00 Document Registration [id number] 01/17/2018 15:39:00 Document Registration [id number] 06/24/2014 15:32:00 Document Registration [id number] 06/24/2014 15:31:00 Document Registration [id number] 06/24/2014 15:31:00 Document Registration [id number] 09/29/2012 03:08:00 Document Registration [id number] 09/16/2012 11:30:00 Document Registration [id number] 07/11/2012 07:13:00 Document Registration [id number] 06/13/2012 22:45:00 Document Registration [id number] 01/02/2012 01:06:00 Document Registration [id number] 03/14/2011 09:46:00 Document Registration [id number] 01/23/2011 00:30:00 Document Registration [id number] 02/03/2010 09:59:00 Document Registration [id number] 11/30/2009 11:00:00 Document Registration [id number] 11/25/2009 13:10:00 Document Registration [id number] 10/21/2009 14:31:00 Document Registration [id number] 09/30/2009 08:17:00 Document Registration [id number] 09/28/2009 09:40:00 Document Registration [id number] 04/09/2009 00:08:00 Document Registration
[2018-05-03] MEDS ORDERED: NS IV 1000 ML 1,000 ML ONE (01:33)
[2018-05-03] MEDS ORDERED: fentaNYL INJECTION 100 MCG/2 ML AMP ONE (01:57)
[2018-05-03] MEDS ORDERED: CATHETER FLUSH 10 ML SYR IV PRN (02:15)
[2018-05-03] MEDS ORDERED: ONDANSETRON 4 MG/2 ML (SDV) Z0FRAN IV PRN (02:15)
[2018-05-03] MEDS: NS IV 1000 ML 1,000 ML IV SCH ×4 (03:24→19:32)
[2018-05-03 04:00] VITALS: BP 157/65
[2018-05-03] MEDS: fentaNYL INJECTION 100 MCG/2 ML AMP IV PRN ×5 (04:13→15:40)
[2018-05-03] MEDS: CATHETER FLUSH 10 ML SYR IV SCH ×3 (05:17→21:13)
[2018-05-03 05:51] LABS: BASOPHILS % (AUTO) 0 % (0-10); EOSINOPHILS # (AUTO) 0.1 10^3/uL (0.0-0.3); EOSINOPHILS % (AUTO) 1 % (0-10); HEMATOCRIT 25 % (35-52); HEMOGLOBIN 7.9 G/DL (11.5-16.0); LYMPHOCYTES # (AUTO) 1.4 X 10^3 (1.0-4.0); LYMPHOCYTES % (AUTO) 13 % (12-44); MEAN CORPUSCULAR HEMOGLOBIN 29 PG (25-34); MEAN CORPUSCULAR HGB CONC 32 G/DL (32-36); MEAN CORPUSCULAR VOLUME 92 FL (80-99); MEAN PLATELET VOLUME 9.7 FL (7.4-10.4); MONOCYTES # (AUTO) 1.3 X 10^3 (0.0-1.0); MONOCYTES % (AUTO) 12 % (0-12); NEUTROPHILS # (AUTO) 7.9 X 10^3 (1.8-7.8); NEUTROPHILS % (AUTO) 74 % (42-75); PLATELET COUNT 313 10^3/uL (130-400); RED BLOOD COUNT 2.71 10^6/uL (4.35-5.85); RED CELL DISTRIBUTION WIDTH 14.3 % (10.0-14.5); WHITE BLOOD COUNT 10.7 10^3/uL (4.3-11.0)
[2018-05-03 06:26] LABS: ALBUMIN 3.6 GM/DL (3.2-4.5); BILIRUBIN,TOTAL 0.3 MG/DL (0.1-1.0); CALCIUM 8.8 MG/DL (8.5-10.1); CREATININE SERUM 1.03 MG/DL (0.60-1.30); POTASSIUM 4.7 MMOL/L (3.6-5.0); TOTAL PROTEIN 6.2 GM/DL (6.4-8.2)
--- NOTE | 2018-05-03 07:14 | Diagnostic Imaging Report ---
PROCEDURE: CT abdomen and pelvis without contrast. TECHNIQUE: Multiple contiguous axial images were obtained through the abdomen and pelvis without the use of intravenous contrast. INDICATION: Abdominal pain. Comparison made with prior examination 10/01/2017. FINDINGS: Heart size is normal. Lung bases are clear. The liver is normal in size without focal lesions. Gallbladder surgically absent. There is no biliary ductal dilatation. Spleen is normal. The pancreas, adrenal glands and kidneys are unremarkable. There is atherosclerotic calcification of the aorta. There is marked distention of stomach, duodenum and proximal small bowel compatible with high-grade small bowel obstruction. There is no free air. Bladder is normal. There is no pelvic mass or adenopathy. There are degenerative changes in the spine. IMPRESSION: Findings compatible with high-grade small bowel obstruction as described. Recommend clinical correlation. If warranted, follow up with small bowel series. Dictated by: Dictated on workstation # [id number]
[2018-05-03 08:02] VITALS: BP 139/63
[2018-05-03] MEDS ORDERED: FLU QUADRIvalent (5+ YOA) 2018-2019 (AFLURIA) 0.5 ML IM ONE (09:00)
[2018-05-03] MEDS ORDERED: CHLORASEPTIC SPRAY 177 ML LIQUID MC PRN (09:00)
[2018-05-03] MEDS ORDERED: DILT240C53 PO (10:15)
[2018-05-03] MEDS ORDERED: LOSA50TA7 PO (10:19)
[2018-05-03] MEDS ORDERED: SERT25TA PO (10:22)
[2018-05-03] MEDS ORDERED: DIATRIZOATE MEGLUM/SODIUM 37% 120 ML (GASTROGRAFIN) NG ONE (10:30)
[2018-05-03 13:15] VITALS: BP 142/66
--- NOTE | 2018-05-03 13:32 | History & Physical-Hospitalist ---
History of Present Illness HPI/Chief Complaint CC: SBO with acute pancreatitis HPI: This is a 68-year-old white female with Dr. Sahu who has a past medical history of extensive spine surgeries due to spine cancer and a history of fecal impaction due to spinal nerve dysfunction who presented to the emergency room after Thanksgiving dinner when severe abdominal pain occurred. She was found to have evidence of high-grade small bowel obstruction so NG tube was placed Dr. Reed was consulted and was noted to have elevated pancreatic enzymes consistent with acute pancreatitis. At this current time the antirheumatic and pain medication is helping her a great deal. She really wants to go home tomorrow but I told her that we will need to evaluate the small bowel test that she just had completed prior to removing the NG tube and having any type of possibility of going home tomorrow. She does report that she did have some bowel movements earlier. Her daughters at the bedside. She wants to know when she can start her anticoagulation and rate control for atrial fibrillation. Source: patient, RN/MD Exam Limitations: no limitations Date Seen 05/03/18 Time Seen by a Provider: 13:30 Attending Physician Erna Marshall DO PCP Joyce Sahu DO Referring Physician Date of Admission May 03, 2018 at 00:24 Home Medications & Allergies Home Medications Reviewed patient Home Medication Reconciliation performed by pharmacy medication reconciliations aviation safety equipment technician and/or nursing. Patients Allergies have been reviewed. 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) Alcohol Use: Denies Use Number of Drinks Today: HH Alcohol Beverage of Choice: Wine Recreational Drug Use: No Smoking Status: Never a Smoker 2nd Hand Smoke Exposure: No Physical Abuse Screen: Yes Sexual Abuse: No Recent Foreign Travel: No Contact w/other who traveled: No Recent Hopitalizations: Yes (D/C 09/03/17) Recent Infectious Disease Expo: No Immunizations Up To Date Tetanus Booster (TDap): Unknown Pediatric: No Date of Pneumonia Vaccine: Mar 11, 2011 Date of Influenza Vaccine: May 04, 2014 Seasonal Allergies Seasonal Allergies: Yes Past Medical History Surgeries: Abdominal, Appendectomy, Section, Gallbladder, 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 , Neurological, Oophorectomy Currently Using CPAP: No Currently Using BIPAP: No Cardiac: Atrial Fibrillation, Heart Murmur, Hypertension, Valvular Heart Disease Neurological: Headaches /Migraines, Neuropathy : No 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: Yes (CERVICAL DYSPLASIA) Sexually Transmitted Disease: No HIV/AIDS: No Female 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 Disorders: Denies 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 Genitourinary: Kidney Infection, Bladder Infection, Renal Failure Gastrointestinal: Gastroesophageal Reflux, Gastrointestinal Bleed, Chronic Constipation, Hiatal Hernia, Gall Bladder Disease Musculoskeletal: Arthritis, Chronic Back Pain Endocrine: Diabetes, Non-Insulin dep Loss of Vision: Denies Hearing Impairment: Denies Cancer: Bone Did You Recieve Any Treatments: Yes What Type of Treatment Did You: Chemotherapy, Radiation, Surgical Intervention Psychosocial: Anxiety History of Blood Disorders: Yes (ANEMIA) Adverse Reaction to Blood [place]: No Family History Reviewed Nursing Family Hx Arthritis 19 MOTHER, Onset:30's - 40 (RA) Cardiovascular disease 19 MOTHER, Onset:40's - 50 Completed stroke 19 MOTHER, Onset:60 years & older Headache disorder 19 FATHER, Onset:Unknown (severe sinus headaches) Hypertension 19 MOTHER, Onset:50's - 60 Myocardial infarction 19 MOTHER, Onset:60 years & older Psychosocial problem 19 FATHER, Onset:Unknown No Family History of: AIDS Abdominal aortic aneurysm [place]'s disease Alcoholism Alzheimer's disease Aphasia Asthma Cancer of mouth Cataracts Colon cancer Congenital disease Congenital heart disease Coronary thrombosis Cystic fibrosis Deafness or hearing loss Dementia Diabetes mellitus Drug abuse Dysphasia Fibrocystic disease of breast Gastroenteritis Glaucoma Hypercholesterolemia Infertility Kidney disease Neoplasm Not obtainable due to adoption Osteoporosis Parkinson's disease Prostate cancer Respiratory disorder Seizure disorder Severe allergy Thyroid disease Tuberculosis Visual disorder Heart Disease Review of Systems Constitutional: see HPI, weakness EENTM: no symptoms reported Respiratory: no symptoms reported Cardiovascular: no symptoms reported Gastrointestinal: abdominal pain (RLQ), loss of appetite, nausea, vomiting Genitourinary: no symptoms reported Musculoskeletal: no symptoms reported Skin: no symptoms reported Psychiatric/Neurological: No Symptoms Reported All Other Systems Reviewed Negative Unless Noted: Yes Physical Exam Physical Exam Vital Signs Vital Signs - First Documented 05/02/18 05/03/18 22:27 00:46 Temp 98.9 Pulse 88 Resp 20 B/P (MAP) 169/72 (104) Pulse Ox 100 O2 Delivery Room Air Capillary Refill : Less Than 3 Seconds Height, Weight, BMI Height: 5'6.00" Weight: 189lbs. 0.0oz. 85.330504bm; 30.5 BMI Method:Stated General Appearance: No Apparent Distress, WD/WN, Chronically ill Eyes: Bilateral Eye Normal Inspection, Bilateral Eye PERRL HEENT: PERRL/EOMI, Normal ENT Inspection, Pharynx Normal Neck: Full Range of Motion, Normal Inspection, Non Tender, Supple, Carotid Bruit Respiratory: Chest Non Tender, Lungs Clear, Normal Breath Sounds, No Accessory Muscle Use, No Respiratory Distress Cardiovascular: No Edema, No Gallop, No JVD, No Murmur, Normal Peripheral Pulses, Irregularly Irregular Gastrointestinal: Normal Bowel Sounds, No Organomegaly, No Pulsatile Mass, Soft , Tenderness (LLQ) Back: Normal Inspection, No CVA Tenderness, No Vertebral Tenderness Extremity: Normal Capillary Refill, Normal Inspection, Normal Range of Motion, Non Tender, No Calf Tenderness, No Pedal Edema Neurologic/Psychiatric: Alert, Oriented x3, No Motor/Sensory Deficits, Normal Mood/Affect Skin: Normal Color, Warm/Dry Lymphatic: No Adenopathy Results Results/Procedures Labs Laboratory Tests 05/02/18 22:52 05/03/18 05:10 Patient resulted labs reviewed. Assessment/Plan Admission Diagnosis Assessment: High-grade small bowel obstruction status post NG tube and surgery consultation Acute pancreatitis Chronic atrial fibrillation Anticoagulant use long-term Spine cancer status post multiple spine surgeries Spinal nerve dysfunction causing fecal impactions in the past Plan: NG tube Small bowel series results are pending Appreciate general surgery consultation Ambulate Home medication when general surgery allows Admission Status: Inpatient Order (span 2 midnights) Reason for Inpatient Admission: High-grade small bowel obstruction will require several days of hospital stay Diagnosis/Problems Diagnosis/Problems (1) Small bowel obstruction Status: Acute (2) Acute pancreatitis Status: Acute Qualifiers: Pancreatitis type: unspecified pancreatitis type Acute pancreatitis complication: unspecified Qualified Codes: K85.90 - Acute pancreatitis without necrosis or infection, unspecified (3) Atrial fibrillation Status: Chronic Qualifiers: Atrial fibrillation type: chronic Qualified Codes: I48.2 - Chronic atrial fibrillation (4) History of fecal impaction Status: Chronic (5) 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
--- NOTE | 2018-05-03 13:40 | Diagnostic Imaging Report ---
INDICATION: Small bowel obstruction. COMPARISON: CT dated 05/02/2018. TECHNIQUE: Single contrast small bowel follow-through was performed on 05/03/2018. FINDINGS: Transportation Department Head images demonstrate surgical clips within the right upper quadrant of the abdomen. Enteric catheter is present with the distal tip within the right upper abdomen. Postsurgical changes are noted within the lumbar spine with bone graft material in place. Multiple phleboliths are also present within the lower pelvis. Minimally visualized lung bases are clear. Contrast was instilled through the enteric catheter. Small bowel transit time was noted to be 30 minutes with contrast seen within the distal colon within 45 minutes. Loops of proximal jejunum are mildly dilated measuring up to 4.0 cm on the initial images. No additional dilated loops of small bowel are identified. No focal transition point. Mucosal folds are unremarkable. No evidence of free intraperitoneal contrast. IMPRESSION: 1. No evidence of small bowel obstruction with a small bowel transit time of 30 minutes noted. 2. Mildly dilated loop of proximal jejunum. This appears less prominent than the prior examination and may relate to improving and resolving ileus versus bowel obstruction. No current evidence of bowel obstruction. Dictated by: Dictated on workstation # [id number]
[2018-05-03] MEDS ORDERED: FLUTICASONE NASAL SPRAY (FLONASE) 16 GM BTL NS PRN (14:00)
[2018-05-03] MEDS ORDERED: ACETAMINOPHEN 500 MG TAB (TYLENOL) PO PRN (14:15)
[2018-05-03] MEDS: PROPAFENONE 150 MG (RYTHMOL) TABLET PO SCH ×2 (14:43→21:13)
--- NOTE | 2018-05-03 15:53 | Consultation ---
History of Present Illness History of Present Illness Patient Consulted On(ramiro/time) 05/03/18 15:47 Date Seen by Provider: May 03, 2018 Time Seen by Provider: 00:15 History of Present Illness Seen and evaluated in ED, consult requested by Dr. Parker for sbo, pancreatitis patient is a 68 year old female who began having nausea and emesis around 3 pm yesterday. Patient states this was after eating. Pain moderate pain in the epigastric region. Stephenson really nauseated and then had emesis which is difficult for her to usually do. No radiation of pain. Has chronic issues with constipation due to spinal surgery. Ct scan c/w high grade sbo and lipase elevated. Denies fever sweats chills shortness of breath or chest pain. Not had any previous sbo before. Allergies and Home Medications Allergies Coded Allergies: Beta-Blockers (Beta-Adrenergic Bloc (Unverified Allergy, Unknown, 11/20/12) atenolol (Verified Allergy, Unknown, 04/05/07) Home Medications Acetaminophen 500 Mg Tablet, 1,000 MG PO TID, (Reported) TAKES 2 (500MG) TABLETS Cholecalciferol (Vitamin D3) 1,000 Unit Capsule, 1,000 UNIT PO DAILY, (Reported) Cyanocobalamin (Vitamin B-12) 1,000 Mcg Tablet, 1,000 MCG PO DAILY, (Reported) Diltiazem HCl 240 Mg Cap.er.24h, 240 MG PO DAILY, (Reported) Fluticasone Propionate 16 Gm [place].susp, 2 SPRAYS NS DAILY PRN for ALLERGIES, ( Reported) Losartan Potassium 50 Mg Tablet, 50 MG PO DAILY, (Reported) Propafenone HCl 225 Mg Cap, 225 MG PO TID, (Reported) Rivaroxaban 20 Mg Tablet, 20 MG PO HS, (Reported) Sennosides/Docusate Sodium 1 Each Tablet, 1 TAB PO BID, (Reported) Sertraline HCl 25 Mg Tablet, 25 MG PO DAILY, (Reported) Patient Home Medication List Home Medication List Reviewed: Yes Past Zjvtscg-Bysspg-Rykjim Hx Patient Social History Alcohol Use: Denies Use Number of Drinks Today: Recreational Drug Use: No Smoking Status: Never a Smoker 2nd Hand Smoke Exposure: No Recent Foreign Travel: No Contact w/Someone Who Travel: No Recent Infectious Disease Expo: No Recent Hopitalizations: Yes (D/C 09/03/17) Physical Abuse Screen: Yes Sexual Abuse: No Immunizations Up To Date Tetanus Booster (TDap): Unknown PED Vaccines UTD: No Date of Pneumonia Vaccine: Mar 11, 2011 Date of Influenza Vaccine: May 04, 2014 Seasonal Allergies Seasonal Allergies: Yes Surgeries History of Surgeries: Yes Surgeries: Abdominal, Appendectomy, Section, Gallbladder, 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 , Neurological, Oophorectomy Respiratory History of Respiratory Disorde: No Cardiovascular History of Cardiac Disorders: Yes (RBBB) Cardiac Disorders: Atrial Fibrillation, Heart Murmur, Hypertension, Valvular Heart Disease Neurological History of Neurological Disord: Yes Neurological Disorders: Headaches /Migraines, Neuropathy 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 System : No Hx 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 Disorders: Yes (CERVICAL DYSPLASIA) Sexually Transmitted Disease: No HIV/AIDS: No Female 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 Disorders: Denies 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 Genitourinary History of Genitourinary Disor: Yes (RENAL INSUFFICIENCY) Genitourinary Disorders: Kidney Infection, Bladder Infection, Renal Failure Gastrointestinal History of Gastrointestinal Di: Yes Gastrointestinal Disorders: Gastroesophageal Reflux, Gastrointestinal Bleed, Chronic Constipation, Hiatal Hernia, Gall Bladder Disease Musculoskeletal History of Musculoskeletal Dis: Yes (KNEES, BACK, HIPS) Musculoskeletal Disorders: Arthritis, Chronic Back Pain Endocrine History of Endocrine Disorders: Yes (Pre Diabetic) Endocrine Disorders: Diabetes, Non-Insulin dep HEENT History of HEENT Disorders: No Loss of Vision: Denies Hearing Impairment: Denies Cancer History of Cancer: Yes Cancer: Bone Psychosocial History of Psychiatric Problem: Yes Behavioral Health Disorders: Anxiety Integumentary History of Skin or Integumenta: No Blood Transfusions History of Blood Disorders: Yes (ANEMIA) Adverse Reaction to a Blood Tr: No Family Medical History Significant Family History: Heart Disease Family Medial History: Arthritis 19 MOTHER, Onset:30's - 40 (RA) Cardiovascular disease 19 MOTHER, Onset:40's - 50 Completed stroke 19 MOTHER, Onset:60 years & older Headache disorder 19 FATHER, Onset:Unknown (severe sinus headaches) Hypertension 19 MOTHER, Onset:50's - 60 Myocardial infarction 19 MOTHER, Onset:60 years & older Psychosocial problem 19 FATHER, Onset:Unknown No Family History of: AIDS Abdominal aortic aneurysm Sundeep's disease Alcoholism Alzheimer's disease Aphasia Asthma Cancer of mouth Cataracts Colon cancer Congenital disease Congenital heart disease Coronary thrombosis Cystic fibrosis Deafness or hearing loss Dementia Diabetes mellitus Drug abuse Dysphasia Fibrocystic disease of breast Gastroenteritis Glaucoma Hypercholesterolemia Infertility Kidney disease Neoplasm Not obtainable due to adoption Osteoporosis Parkinson's disease Prostate cancer Respiratory disorder Seizure disorder Severe allergy Thyroid disease Tuberculosis Visual disorder Review of Systems-General Constitutional: no symptoms reported EENTM: no symptoms reported Respiratory: no symptoms reported Cardiovascular: no symptoms reported Gastrointestinal: see HPI Genitourinary: no symptoms reported Musculoskeletal: no symptoms reported Skin: no symptoms reported Psychiatric/Neurological: No Symptoms Reported Physical Exam-General Problems Physical Exam Vital Signs Vital Signs - First Documented 05/02/18 05/03/18 22:27 00:46 Temp 98.9 Pulse 88 Resp 20 B/P (MAP) 169/72 (104) Pulse Ox 100 O2 Delivery Room Air Capillary Refill : Less Than 3 Seconds General Appearance: no apparent distress HEENT: PERRL/EOMI, normal ENT inspection Neck: non-tender, full range of motion, supple Respiratory: chest non-tender, no respiratory distress, no accessory muscle use Cardiovascular: regular rate, rhythm Gastrointestinal: soft, distended (mildly distended), tenderness (more in epigastric region) Rectal: deferred Back: no vertebral tenderness Extremities: non-tender Neurologic/Psychiatric: alert, normal mood/affect, oriented x 3 Skin: normal color, warm/dry Lymphatic: no adenopathy Data Review Labs Laboratory Tests 05/02/18 22:52: White Blood Count 12.3H, Red Blood Count 3.07L, Hemoglobin 8.8L, Hematocrit 28L , Mean Corpuscular Volume 91, Mean Corpuscular Hemoglobin 29, Mean Corpuscular Hemoglobin Concent 32, Red Cell Distribution Width 14.3, Platelet Count 342, Mean Platelet Volume 9.9, Neutrophils (%) (Auto) 78H, Lymphocytes (%) (Auto) 15 , Monocytes (%) (Auto) 6, Eosinophils (%) (Auto) 1, Basophils (%) (Auto) 0, Neutrophils # (Auto) 9.6H, Lymphocytes # (Auto) 1.8, Monocytes # (Auto) 0.8, Eosinophils # (Auto) 0.1, Basophils # (Auto) 0.0, Sodium Level 140, Potassium Level 4.1, Chloride Level 105, Carbon Dioxide Level 21, Anion Gap 14, Blood Urea Nitrogen 36H, Creatinine 1.35H, Estimat Glomerular Filtration Rate 39, BUN/ Creatinine Ratio 27, Glucose Level 142H, Calcium Level 10.0, Corrected Calcium 9.7, Total Bilirubin 0.4, Aspartate Amino Transf (AST/SGOT) 16, Alanine Aminotransferase (ALT/SGPT) 17, Alkaline Phosphatase 77, Total Protein 7.5, Albumin 4.4, Amylase Level 558H, Lipase 1432H 05/03/18 05:10: White Blood Count 10.7, Red Blood Count 2.71L, Hemoglobin 7.9L, Hematocrit 25L, Mean Corpuscular Volume 92, Mean Corpuscular Hemoglobin 29, Mean Corpuscular Hemoglobin Concent 32, Red Cell Distribution Width 14.3, Platelet Count 313, Mean Platelet Volume 9.7, Neutrophils (%) (Auto) 74, Lymphocytes (%) (Auto) 13, Monocytes (%) (Auto) 12, Eosinophils (%) (Auto) 1, Basophils (%) (Auto) 0, Neutrophils # (Auto) 7.9H, Lymphocytes # (Auto) 1.4, Monocytes # (Auto) 1.3H, Eosinophils # (Auto) 0.1, Basophils # (Auto) 0.0, Sodium Level 141, Potassium Level 4.7, Chloride Level 110H, Carbon Dioxide Level 21, Anion Gap 10, Blood Urea Nitrogen 32H, Creatinine 1.03, Estimat Glomerular Filtration Rate 54, BUN/ Creatinine Ratio 31, Glucose Level 111H, Calcium Level 8.8, Corrected Calcium 9.1, Total Bilirubin 0.3, Aspartate Amino Transf (AST/SGOT) 13, Alanine Aminotransferase (ALT/SGPT) 14, Alkaline Phosphatase 64, Total Protein 6.2L, Albumin 3.6, Lipase 389H Assessment/Plan Assessment/Plan Assessment/Plan high grade sbo pancreatitis chronic afib ng tube inserted to liws will get sbft later today npo iv hydration Clinical Quality Measures DVT/VTE Risk/Contraindication: Risk Factor Score Per Nursin RFS Level Per Nursing on Admit: 3=High JUN MANSFIELD DO May 03, 2018 15:53
[2018-05-03 19:42] VITALS: BP 121/57
[2018-05-03] MEDS ORDERED: RIVAROXABAN 20 MG TABLET (XARELTO) PO SCH (21:00)
[2018-05-04 00:08] VITALS: BP 130/60
[2018-05-04] MEDS: NS IV 1000 ML 1,000 ML IV SCH (03:52)
[2018-05-04 04:23] VITALS: BP 149/63
[2018-05-04] MEDS: CATHETER FLUSH 10 ML SYR IV SCH ×2 (05:55→14:33)
[2018-05-04] MEDS: PROPAFENONE 150 MG (RYTHMOL) TABLET PO SCH ×2 (05:56→14:33)
[2018-05-04 08:00] VITALS: BP 165/70
[2018-05-04] MEDS ORDERED: FLU QUADRIvalent (5+ YOA) 2018-2019 (AFLURIA) 0.5 ML IM ONE (08:43)
[2018-05-04] MEDS ORDERED: DILTIAZEM 240 MG (CARDIZEM CD) CAP PO SCH (09:00)
[2018-05-04] MEDS ORDERED: SERTRALINE 50 MG (ZOLOFT) TABLET PO SCH (09:00)
[2018-05-04] MEDS ORDERED: LOSARTAN 50 MG (COZAAR) TAB PO SCH (09:00)
[2018-05-04 12:00] VITALS: BP 152/74
--- NOTE | 2018-05-04 12:55 | Discharge Summary-Hospitalist ---
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 causing fecal impactions in the past Plan: NG tube Small bowel series results are pending Appreciate general surgery consultation Ambulate Home medication when general surgery allows Discharge Diagnosis (1) Small bowel obstruction Status: Resolved (2) Acute pancreatitis Status: Resolved (3) Atrial fibrillation Status: Chronic (4) History of fecal impaction Status: Chronic (5) 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 (6) Depression Status: Chronic (7) Anemia Status: Chronic (8) Nausea Status: Acute Discharge Summary Discharge Physical Exam Allergies: Coded Allergies: Beta-Blockers (Beta-Adrenergic Bloc (Unverified Allergy, Unknown, 11/20/12) atenolol (Verified Allergy, Unknown, 04/05/07) Vitals & I&Os Vital Signs Date Time Temp Pulse Resp B/P (MAP) Pulse Ox O2 Delivery O2 Flow Rate FiO2 05/04/18 08:00 98.0 76 20 165/70 (101) 100 Room Air General Appearance: No Apparent Distress, WD/WN Respiratory: Chest Non Tender, Lungs Clear, Normal Breath Sounds, No Accessory Muscle Use, No Respiratory Distress Cardiovascular: No Edema, No Gallop, No JVD, No Murmur, Normal Peripheral Pulses, Irregularly Irregular Gastrointestinal: Normal Bowel Sounds, No Organomegaly, No Pulsatile Mass, Non Tender, Soft Neurologic/Psychiatric: Alert, Oriented x3, No Motor/Sensory Deficits, Normal Mood/Affect Hospital Course Hospital course: Patient had a brief hospital course she was admitted for small bowel obstruction and acute pancreatitis and NG tube was placed along with IV fluids and pain medication. Gastrografin study performed revealing clearance of small bowel obstruction and patient resumed normal bowel function. Home medication was all reconciled and restarted and patient was deemed stable for discharge and will advance diet to clear liquids and maintain that diet for the next 2 days with close follow-up with primary care provider in addition to Dr. Reed for repeat endoscopy. Labs (last 24 hrs) Patient resulted labs reviewed. Discussion & Recommendations Discharge Planning: <30 minutes discharge planning Discharge Home Medications: Active Scripts Active Reported Zoloft (Sertraline HCl) 25 Mg Tablet 25 Mg PO DAILY Losartan Potassium 50 Mg Tablet 50 Mg PO DAILY Cartia Xt (Diltiazem HCl) 240 Mg Cap.er.24h 240 Mg PO DAILY Senna S Tablet (Sennosides/Docusate Sodium) 1 Each Tablet 1 Tab PO BID Vitamin D3 (Cholecalciferol (Vitamin D3)) 1,000 Unit Capsule 1,000 Unit PO DAILY Vitamin B-12 (Cyanocobalamin (Vitamin B-12)) 1,000 Mcg Tablet 1,000 Mcg PO DAILY Tylenol Extra Strength (Acetaminophen) 500 Mg Tablet 1,000 Mg PO TID TAKES 2 (500MG) TABLETS Fluticasone Propionate 16 Gm [place].susp 2 Sprays NS DAILY PRN Xarelto (Rivaroxaban) 20 Mg Tablet 20 Mg PO HS Propafenone HCl ER (Propafenone HCl) 225 Mg Cap 225 Mg PO TID Instructions to patient/family Please see electronic discharge instructions given to patient. Clinical Quality Measures DVT/VTE Risk/Contraindication: Risk Factor Score Per Nursin RFS Level Per Nursing on Admit: 3=High Problem Qualifiers (1) Acute pancreatitis: Pancreatitis type: unspecified pancreatitis type Acute pancreatitis complication: unspecified Qualified Codes: K85.90 - Acute pancreatitis without necrosis or infection, unspecified (2) Atrial fibrillation: Atrial fibrillation type: chronic Qualified Codes: I48.2 - Chronic atrial fibrillation (3) Depression: Depression Type: unspecified Qualified Codes: F32.9 - Major depressive disorder, single episode, unspecified (4) Anemia: Anemia type: unspecified type Qualified Codes: D64.9 - Anemia, unspecified YURI MARSHALL DO May 04, 2018 12:55
--- NOTE | 2018-05-04 16:42 | Progress Note ---
Subjective Date Seen by a Provider: May 04, 2018 Time Seen by a Provider: 10:21 Subjective/Events-last exam Patient states that she's feeling better. She has no abdominal pain at this time. She is passing Flatus and having bowel movements. Patient tolerating liquids. Denies any nausea vomiting fever sweats chills shortness of breath or chest pain. Objective Exam Vital Signs Date Time Temp Pulse Resp B/P (MAP) Pulse Ox O2 Delivery O2 Flow Rate FiO2 05/04/18 12:00 98.4 65 20 152/74 (100) 99 Room Air 05/04/18 08:00 98.0 76 20 165/70 (101) 100 Room Air 05/04/18 04:23 97.7 68 18 149/63 (91) 98 Room Air 05/04/18 00:08 98.7 79 16 130/60 (83) 99 Room Air 05/03/18 19:42 97.8 84 20 121/57 (78) 98 Room Air I & O 05/04/18 07:00 Intake Total 2000 ml Output Total 1800 ml Balance 200 ml Capillary Refill : Less Than 3 Seconds General Appearance: No Apparent Distress, WD/WN HEENT: PERRL/EOMI, Normal ENT Inspection Neck: Full Range of Motion, Normal Inspection, Non Tender, Supple Respiratory: Chest Non Tender, No Accessory Muscle Use, No Respiratory Distress Cardiovascular: No Edema, No Gallop, No JVD, No Murmur, Normal Peripheral Pulses, Irregularly Irregular Gastrointestinal: non tender, soft, no organomegaly Extremity: Normal Capillary Refill, Normal Inspection, Normal Range of Motion, Non Tender, No Calf Tenderness, No Pedal Edema Neurologic/Psychiatric: Alert, Oriented x3, No Motor/Sensory Deficits, Normal Mood/Affect Skin: Normal Color, Warm/Dry Lymphatic: No Adenopathy Assessment/Plan Assessment/Plan Assessment/Plan high grade sbo pancreatitis chronic afib sbft without any obstruction. Small area consistent with an consistent with ileus Patient not having any pain at this time. Patient instructed to slowly increase diet as tolerates. Patient to surgical intervention located likely [place] home later today Clinical Quality Measures DVT/VTE Risk/Contraindication: Risk Factor Score Per Nursin RFS Level Per Nursing on Admit: 3=High JUN MANSFIELD DO May 04, 2018 16:42
== END 2018-05-04 16:06 | disposition home or self-care (01) | DRG 388 ==
LOC: EDUNIT# 21:52 → ER 21:53 → 4TH 05-03 00:24
PROVIDERS: ADMIT Internal Medicine; ATTEND Internal Medicine
PROC: 0D9670Z Drainage of Stomach with Drainage Device, Via Natural or Artificial Opening (ICD-10-PCS; principal; 2018-05-03)
DX: K56.609 Unspecified intestinal obstruction, unspecified as to partial versus complete obstruction (principal); K85.90 Acute pancreatitis without necrosis or infection, unspecified; E11.9 Type 2 diabetes mellitus without complications; I48.2 Chronic atrial fibrillation; I10 Essential (primary) hypertension; K21.9 Gastro-esophageal reflux disease without esophagitis; K59.09 Other constipation; F32.9 Major depressive disorder, single episode, unspecified; D64.9 Anemia, unspecified; Z87.39 Personal history of other diseases of the musculoskeletal system and connective tissue; Z85.830 Personal history of malignant neoplasm of bone; Z82.49 Family history of ischemic heart disease and other diseases of the circulatory system; Z92.21 Personal history of antineoplastic chemotherapy; Z92.3 Personal history of irradiation; Z79.01 Long term (current) use of anticoagulants
CPT/HCPCS: 36415; 74176; 74250; 80053; 82150; 83690; 85025; 90686; 96374; 96375

== ENCOUNTER 2018-05-07 09:34 | Outpatient (RCR) | payer MEDICARE ==
[~2018-05-07 09:34] MED LIST changes: +DILT240C53 PO; +LOSA50TA63 PO; +SERT25TA PO
[2018-07-31] MEDS ORDERED: LISI10TA2 PO (09:42)
[2018-07-31] MEDS ORDERED: SERT50TA9 PO (09:42)
[2018-07-31] MEDS ORDERED: DOCU-143 PO (09:42)
[2018-07-31] MEDS ORDERED: PANT40TA3 PO (09:42)
[2018-07-31] MEDS ORDERED: MULT-17 PO (18:54)
[2018-08-02] MEDS ORDERED: ONDA4TAB10 PO (10:36)
== END 2018-08-05 | disposition home or self-care (01) ==
LOC: LAB 09:34
PROVIDERS: ATTEND Family Medicine
DX: R19.7 Diarrhea, unspecified (principal); R11.0 Nausea
CPT/HCPCS: 87324; 87328; 87329; 87449

== ENCOUNTER 2018-07-30 15:11 | Inpatient (IN) | payer MEDICARE ==
[~2018-07-30] VITALS: Ht 167.6 cm; Wt 79.9 kg
--- OUTSIDE RECORDS SUMMARY | 2018-07-30 15:29 | XMS REPORT | Encounter Summary ---
Author Author [facility] Organization [facility] Address Unknown Phone Unavailable Care Team Providers Care Embedded Firmware Engineer Name Role Phone [place] Ruffin MD Unavailable Bean Carrera MD Unavailable Anselmo Alex APRN Unavailable Unavailable Joyce Sahu MD PCP Matt York MD Unavailable Unavailable Reason for Visit * Reason Comments Other Encounter Details Care Team Description Date Type Department Gerry Mosher MD [address] [facility] [address] [place], [place] [id number] Other 05/06/2018 Telephone [facility] 1st FLOOR [address] [place] [address] Social History Date Tobacco Use Types Packs/Day Years Used Never Smoker Alcohol Use Drinks/Week oz/Week Comments No Sex Assigned at Date Recorded Not on file Industry Job Start Date Occupation Not on file Not on file Not on file Travel End Travel History Travel Start No recent travel history available. as of this encounter Functional Status Date of Assessment Functional Status Response 04/12/2017 Does the patient have a hearing impairment: No 04/12/2017 Does the patient have a visual impairment: Yes 04/12/2017 Does the patient have impaired ambulation: Yes 04/12/2017 Does the patient have an activity of daily living No (ADL) impairment: 04/12/2017 Does the patient have an instrumental activity of No daily living (IADL) impairment: Date of Assessment Cognitive Status Response 04/12/2017 Does the patient have a cognitive impairment: No as of this encounter Miscellaneous Notes * Telephone Encounter - Jolene Pappas - 05/07/2018 11:15 AM HOME STEREO EQUIPMENT INSTALLER Pt called stating she is having records faxed to our office. Gave pt Fax Number. Pt also states her CT scan is available in the cloud. [facility] is faxing over other pertinent information & documents. STEREO EQUIPMENT INSTALLER * Telephone Encounter - Zackary Joseph RN - 05/06/2018 2:20 PM HOME STEREO EQUIPMENT INSTALLER Spoke with pt. Reports was recently admitted for pancreatitis and ileus. Requested imaging be sent to our office for review. V/u. STEREO EQUIPMENT INSTALLER * Telephone Encounter - Jolene Pappas - 05/06/2018 1:49 PM HOME STEREO EQUIPMENT INSTALLER Pt LVM returning call to DC STEREO EQUIPMENT INSTALLER * Telephone Encounter - Zackary Joseph RN - 05/06/2018 12:21 PM HOME STEREO EQUIPMENT INSTALLER Attempted to return call. LVM. Requested call back. STEREO EQUIPMENT INSTALLER * Telephone Encounter - Nyla Gant - 05/06/2018 10:04 AM HOME STEREO EQUIPMENT INSTALLER Pt called wanting to talk with you about having pancreatitis over the weekend and illus in her intestines she was at [facility] [place]. STEREO EQUIPMENT INSTALLER in this encounter Plan of Treatment Not on fileas of this encounter Visit Diagnoses Not on filein this encounter
--- OUTSIDE RECORDS SUMMARY | 2018-07-30 15:29 | XMS REPORT | Encounter Summary ---
Author Author [facility] Organization [facility] Address Unknown Phone Unavailable Care Team Providers Care Brick Stacker Name Role Phone Amanda Ruffin MD Unavailable Bean Carrera MD Unavailable Anselmo Alex APRN Unavailable Unavailable Joyce Sahu MD PCP Matt York MD Unavailable Unavailable Reason for Visit * Reason Comments Records Request Encounter Details Care Team Description Date Type Department Gerry Mosher MD [address] [facility] [address] [place] [address] Records Request 05/07/2018 Telephone [facility] 1st FLOOR [address] [place], [place] [id number] Social History Date Tobacco Use Types Packs/Day [...] encounter Miscellaneous Notes * Telephone Encounter - Annelise Campbell - 05/07/2018 12:26 PM TAX DIRECTOR Lm with film library request for recent CT scan report and images via [employer]. DIRECTOR in this encounter Plan of Treatment Not on fileas of this encounter Visit Diagnoses Not on filein this encounter
--- OUTSIDE RECORDS SUMMARY | 2018-07-30 15:29 | XMS REPORT | Clinical Summary ---
Author Author [facility] Organization [facility] Address Unknown Phone Unavailable Care Team Providers Care Pipe Cutter Name Role Phone Amanda Ruffin MD Unavailable Bean Carrera MD Unavailable Anselmo Alex APRN Unavailable Unavailable Joyce Sahu MD PCP Matt York MD Unavailable Unavailable Source Comments Some departments are not documenting in the electronic medical record. If you do not see the information that you expected, contact Release of Information in the Health Information Management department at [phone] for further assistance in locating additional records.[facility] Allergies Comments Active Allergy Reactions Severity Noted Date Atenolol HYPOTENSION 06/26/2007 Beta-Blockers SHORTNESS OF 08/13/2007 (Beta-Adrenergic Blocking BREATH, Agts) HYPOTENSION Medications End Date Status Medication Sig Dispensed Refills Start Date Active olmesartan (BENICAR) 20 Take 20 mg by 0 mg tablet mouth Daily. Active pantoprazole DR,+, Take 40 mg by 0 (PROTONIX) 40 mg tablet mouth Twice Daily. Active ranitidine,+, (ZANTAC) Take 150 mg 0 150 mg tablet by mouth Twice Daily. Active diazepam (VALIUM) 5 mg Take 5 mg by 0 tablet mouth Every 6 Hours as needed for Anxiety. Active tramadol,+, (ULTRAM) 50 Take 50 mg by 0 mg tablet mouth Every 6 Hours as needed for Pain. Active hydrocodone/acetaminophen Take 1 Tab by 0 (VICODIN) 5/500 mg tablet mouth Every 4 Hours as needed for Pain. Usually takes 1/2 tab once daily Active propafenone (RYTHMOL) 225 Take 225 mg 0 mg tablet by mouth three times daily. Active diltiazem CD (CARDIZEM Take 180 mg 0 CD) 180 mg capsule by mouth daily. Active rivaroxaban (XARELTO) 20 Take 20 mg by 0 mg tab tablet mouth daily. 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 Thyroid nodule 06/27/2007 Encounters Care Team Description Date Type Specialty Gerry Mosher MD Records Request 05/07/2018 Telephone Transplant Surgery Gerry Mosher MD Other 05/06/2018 Telephone Transplant Surgery 05/02/2018 Hospital Radiology Encounter from Last 3 Months Family History Medical [...] Maternal Uncle Mother Paternal Grandmother Social History Date Tobacco Use Types Packs/Day Years Used Never Smoker Tobacco Cessation: Counseling Given: No Alcohol Use Drinks/Week oz/Week Comments No Sex Assigned at Date Recorded Not on file Industry Job Start Date Occupation Not on file Not on file Not on file Travel End Travel History Travel Start No recent travel history available. Last Filed Vital Signs Time Taken Vital Sign Reading 04/12/2017 10:08 AM CDT Blood Pressure 155/53 04/12/2017 10:08 AM CDT Pulse 64 04/12/2017 10:08 AM CDT Temperature 36.7 C (98 F) 04/12/2017 10:08 AM CDT Respiratory Rate 14 04/12/2017 10:08 AM CDT Oxygen Saturation 100% - Inhaled Oxygen - Concentration 04/12/2017 10:08 AM CDT Weight 86.2 kg (190 lb) 04/12/2017 10:08 AM CDT Height 167.6 cm (5' 6") 04/12/2017 10:08 AM CDT Body Mass Index 30.67 Plan of Treatment Health Maintenance Due Date Last Done Comments HEPATITIS C SCREENING 1952 PHYSICAL (COMPREHENSIVE) 1959 EXAM DTAP/TDAP VACCINES (1 - 1970 Tdap) BREAST CANCER SCREENING 1992 COLORECTAL CANCER 2002 SCREENING SHINGLES RECOMBINANT 2002 VACCINE (1 of 2) OSTEOPOROSIS 2017 SCREENING/MONITORING PNEUMONIA (PCV13/PPSV23) 2017 VACCINES (1 of 2 - PCV13) INFLUENZA VACCINE 01/09/2018 03/05/2009, 04/09/2008, 04/01/2007 Procedures Comments Procedure Name Priority Date/Time Associated Diagnosis CT ABD/PEL EXTERNAL Routine 05/02/2018 Diagnosis unknown IMAGING 12:00 AM WIRE STRIPPER from Last 3 Months Results * CT ABD/PEL EXTERNAL IMAGING (05/02/2018 12:00 AM WIRE STRIPPER) Narrative Performed At This order has been auto finalized and does not contain a result. from Last 3 Months Insurance Payer Benefit Subscriber ID Type Phone Address Plan / Group HUMANA MEDICARE HUMANA xxxxxxxxx Medicare CHOICE PPO Advance Directives Patient has advance care planning documents on file. For more information, please contact: [facility] [address] [place] [address]
[2018-07-30] MEDS ORDERED: PANTOPRAZOLE 40 MG (PROTONIX) VIAL IV NR (15:30)
[2018-07-30] MEDS ORDERED: PATIENT MAY USE OWN MEDS, ALL PO SCH (15:30)
--- OUTSIDE RECORDS SUMMARY | 2018-07-30 15:30 | XMS REPORT | Encounter Summary ---
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 Name Role Phone Amanda Ruffin MD Unavailable Bean Carrera MD Unavailable Anselmo Alex APRN Unavailable Unavailable Joyce Sahu MD PCP Matt York MD Unavailable Unavailable Encounter Details Care Team Description Date Type Department 05/02/2018 Hospital [facility] Radiology [facility] [address] [place] [address] Social History Date Tobacco Use Types Packs/Day [...] cognitive impairment: No as of this encounter Medications at Time of Discharge Start Date End Date Medication Sig Dispensed Refills diazepam (VALIUM) 5 mg Take 5 mg by 0 tablet mouth Every 6 Hours as needed for Anxiety. diltiazem CD (CARDIZEM Take 180 mg 0 CD) 180 mg capsule by mouth daily. hydrocodone/acetaminophen Take 1 Tab by 0 (VICODIN) 5/500 mg tablet mouth Every 4 Hours as needed for Pain. Usually takes 1/2 tab once daily olmesartan (BENICAR) 20 Take 20 mg by 0 mg tablet mouth Daily. pantoprazole DR,+, Take 40 mg by 0 (PROTONIX) 40 mg tablet mouth Twice Daily. propafenone (RYTHMOL) 225 Take 225 mg 0 mg tablet by mouth three times daily. ranitidine,+, (ZANTAC) Take 150 mg 0 150 mg tablet by mouth Twice Daily. rivaroxaban (XARELTO) 20 Take 20 mg by 0 mg tab tablet mouth daily. tramadol,+, (ULTRAM) 50 Take 50 mg by 0 mg tablet mouth Every 6 Hours as needed for Pain. as of this encounter Plan of Treatment Not on fileas of this encounter Procedures Comments Procedure Name Priority Date/Time Associated Diagnosis CT ABD/PEL EXTERNAL Routine 05/02/2018 Diagnosis unknown IMAGING 12:00 AM PAGE TECHNICIAN in this encounter Results * CT ABD/PEL EXTERNAL IMAGING (05/02/2018 12:00 AM PAGE TECHNICIAN) Narrative Performed At This order has been auto finalized and does not contain a result. in this encounter Visit Diagnoses Diagnosis Diagnosis unknown Other unknown and unspecified cause of morbidity or mortality in this encounter
--- OUTSIDE RECORDS SUMMARY | 2018-07-30 15:35 | XMS REPORT | Continuity of Care Document ---
Author Author [facility] Address Unknown Phone Unavailable Allergies Active Description Code Type Severity Reaction Onset Reported/Identified Relationship to Patient Clinical Status Yes atenolol [id number] Drug Allergy Unknown N/A 04/05/2007 Yes Beta-Blockers (Beta-Adrenergic Bloc [id number] Drug Allergy Unknown N/A 05/2013 Yes atenolol [...] PLUNKETT MD Ot 401.9 HYPERTENSION NOS 05/18/2014 LRARY PLUNKETT MD Ot 427.31 ATRIAL FIBRILLATION 05/18/2014 [...] Ot 719.46 JOINT PAIN-L/LEG 11/13/2014 MARGO JOHNSON PRODUCTION COUNTER Ot 844.9 SPRAIN OF KNEE LEG NOS 11/13/2014 MARGO JOHNSON PRODUCTION COUNTER Ot E000.8 OTHER EXTERNAL CAUSE STATUS 11/13/2014 MARGO JOHNSON PRODUCTION COUNTER Ot E888.9 FALL NOS 05/10/2015 KHRIS BRADEN, BABAK Taylor Ot I45.10 UNSPECIFIED RIGHT BUNDLE-BRANCH BLOCK 05/10/2015 BABAK PINEDO MD Ot I48.91 UNSPECIFIED ATRIAL FIBRILLATION 05/10/2015 BABAK PINEDO MD Ot R06.00 DYSPNEA, UNSPECIFIED 05/10/2015 BABAK PINDEO MD Ot R07.89 OTHER CHEST PAIN 05/10/2015 BABAK PINEDO MD Ot R11.0 NAUSEA 05/10/2015 BABAK PINEDO MD Ot R78.9 FINDING OF UNSP SUBSTANCE, NOT NORMALLY 05/10/2015 BABAK PINEDO MD Ot Z79.01 DIGITAL PRODUCTION ARTIST (CURRENT) USE OF 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 05/10/2015 BABAK PINEDO [...] CLAUDIO MD Ot 401.9 HYPERTENSION NOS 09/28/2015 DAMNO CLAUDIO MD Ot 427.31 ATRIAL FIBRILLATION 09/28/2015 [...] S Ot I25.10 ATHSCL HEART DISEASE OF [place] CORONARY 11/05/2015 JOYCE SAHU DO S Ot [...] 11/05/2015 JOYCE SAHU DO S Ot Y84.8 [facility] CAUSE ABN REACT/C 11/05/2015 JOYCE SAHU DO S Ot Z79.01 LONG-TERM (CURRENT) USE OF 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 11/05/2015 JOYCE SAHU [...] S Ot I25.10 ATHSCL HEART DISEASE OF [place] CORONARY 11/05/2015 EDVINMORE PLATT JOYCE S Ot [...] REACT/C 11/05/2015 EDVINMORE JOYCE PLATT Ot Z79.01 DIGITAL PRODUCTION ARTIST (CURRENT) USE OF 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 11/05/2015 EDVINMORE PLATTJOYCE [...] DO Ot I25.10 ATHSCL HEART DISEASE OF [place] CORONARY 11/06/2015 JOYCE SAHU DO Ot I48.0 [...] GLUCOSE 11/06/2015 JOYCE SAHU DO Ot Y84.8 [facility] CAUSE ABN REACT/C 11/06/2015 CONOR PLATT JOYCE Ricci Ot Z79.01 DIGITAL PRODUCTION ARTIST (CURRENT) USE OF 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 11/06/2015 CONOR PLATT [...] S Ot I25.10 ATHSCL HEART DISEASE OF [place] CORONARY 12/26/2015 ORENDER DO, JOYCE S Ot [...] S Ot I25.10 ATHSCL HEART DISEASE OF [place] CORONARY 12/26/2015 ORENDER DO, JOYCE S Ot [...] DIABETES MELLITUS WITHOUT COMPLIC 12/08/2016 MARGO JOHNSON PRODUCTION COUNTER Ot I10 ESSENTIAL (PRIMARY) HYPERTENSION 12/08/2016 MARGO OJHNSON PRODUCTION COUNTER Ot I48.91 UNSPECIFIED ATRIAL FIBRILLATION 12/08/2016 MARGO JOHNSON PRODUCTION COUNTER Ot K21.9 GASTRO-ESOPHAGEAL REFLUX DISEASE WITHOUT 12/08/2016 MARGO JOHNSON PRODUCTION COUNTER Ot K59.00 CONSTIPATION, UNSPECIFIED 12/08/2016 MARGO JOHNSON PRODUCTION COUNTER Ot Z79.899 OTHER LONG-TERM (CURRENT) DRUG THERAPY 03/11/2017 BABAK PINEDO MD [...] COLLAPSE 2017 HEATHER LUKE MD Ot Z79.01 LONG-TERM (CURRENT) USE OF 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 2017 HEATHER LUKE [...] COLLAPSE 03/14/2017 HEATHER LUKE MD Ot Z79.01 DIGITAL PRODUCTION ARTIST (CURRENT) USE OF 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 03/14/2017 HEATHER LUKE [...] Ot H53.8 OTHER VISUAL DISTURBANCES 03/18/2017 HEATHER ULKE MD Ot I10 ESSENTIAL (PRIMARY) HYPERTENSION 03/18/2017 HEATHER LUKE MD Ot I48.91 UNSPECIFIED ATRIAL FIBRILLATION 03/18/2017 HEATHER LUKE MD Ot K21.9 GASTRO-ESOPHAGEAL REFLUX DISEASE WITHOUT 03/18/2017 HEATHER LUKE MD Ot K92.2 GASTROINTESTINAL HEMORRHAGE, UNSPECIFIED 03/18/2017 HEATHER LUKE MD Ot N39.0 URINARY TRACT INFECTION, SITE NOT SPECIF 03/18/2017 HEATHER LUKE MD Ot R55 SYNCOPE AND COLLAPSE 03/18/2017 HEATHER LUKE MD Ot Z79.01 DIGITAL PRODUCTION ARTIST (CURRENT) USE OF 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 03/18/2017 HEATHER LUKE [...] Ot R42 DIZZINESS AND GIDDINESS 03/31/2017 OLAMIDE HNA DOA Ron Ot Z79.01 DIGITAL PRODUCTION ARTIST (CURRENT) USE OF 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 03/31/2017 OLAMIDE HAN DOA Ron Ot Z82.49 FAMILY HX OF ISCHEM HEART DIS AND OTH DI 03/31/2017 OLAMIDE HAN DOA Ron Ot Z86.018 PERSONAL HISTORY OF OTHER BENIGN NEOPLAS 03/31/2017 MARIE HAN DO Ot Z87.19 PERSONAL HISTORY OF OTHER DISEASES OF TH 03/31/2017 MARIE HAN DO Ot Z90.49 ACQUIRED ABSENCE OF OTHER SPECIFIED PART 03/31/2017 OLAMIDE AHN DOA Ron Ot Z90.710 ACQUIRED ABSENCE OF [...] GIDDINESS 04/03/2017 GUILLE OLAMIDEA K Ot Z79.01 DIGITAL PRODUCTION ARTIST (CURRENT) USE OF 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 04/03/2017 GUILLE OLAMIDEA [...] 04/09/2017 GUILLE PLATT MARIE Velasquez Ot Z79.01 DIGITAL PRODUCTION ARTIST (CURRENT) USE OF 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 04/09/2017 GUILLE PLATT [...] WITHOUT 09/13/2017 BABAK PINEDO MD, Ot Z79.01 DIGITAL PRODUCTION ARTIST (CURRENT) USE OF 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 09/13/2017 BABAK PINEDO MD, Ot Z79.51 LONG-TERM (CURRENT) USE OF INHALED STERO 09/13/2017 BABAK [...] WITHOUT 09/17/2017 BABAK PINEDO MD, Ot Z79.01 LONG-TERM (CURRENT) USE OF 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 09/17/2017 BABAK PINEDO MD, Ot Z79.51 LONG-TERM (CURRENT) USE OF INHALED STERO 09/17/2017 BABAK [...] WITHOUT 09/19/2017 BABAK PINEDO MD, Ot Z79.01 LONG-TERM (CURRENT) USE OF 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 09/19/2017 BABAK PINEDO MD, Ot Z79.51 LONG-TERM (CURRENT) USE OF INHALED STERO 09/19/2017 BABAK [...] R11.0 NAUSEA 04/08/2018 BERNOT, JOSE Ot Z79.01 DIGITAL PRODUCTION ARTIST (CURRENT) USE OF 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 04/08/2018 BERNOT, JOSE Ot Z79.51 LONG-TERM (CURRENT) USE OF INHALED STERO 04/08/2018 BERNOT, [...] R11.0 NAUSEA 04/10/2018 BERNOT, JOSE Ot Z79.01 DIGITAL PRODUCTION ARTIST (CURRENT) USE OF 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 04/10/2018 BERNOT, JOSE Ot Z79.51 DIGITAL PRODUCTION ARTIST (CURRENT) USE OF INHALED STERO 04/10/2018 BERNOT, JOSE Ot Z82.49 FAMILY HX OF ISCHEM HEART DIS AND OTH DI 04/10/2018 JUAN GODFREYIS Ot Z85.830 PERSONAL HISTORY OF MALIGNANT NEOPLASM O 04/10/2018 BEKAH JOSE Ot Z87.19 PERSONAL HISTORY OF OTHER DISEASES OF TH 04/10/2018 JUAN GODFREYIS Ot Z87.448 PERSONAL HISTORY OF OTHER DISEASES OF UR 04/10/2018 BEKAH JOSE Ot Z88.8 ALLERGY STATUS TO OT DRUG/MEDS/BIOL SUB 04/10/2018 BEKAH JOSE Ot Z90.710 ACQUIRED ABSENCE OF BOTH CERVIX AND UTER 04/10/2018 JOSE GODFREY Ot Z90.89 ACQUIRED ABSENCE OF OTHER ORGANS 04/10/2018 JOSE GODFREY Ot Z92.21 PERSONAL HISTORY OF ANTINEOPLASTIC CHEMO 04/10/2018 JOSE GODFREY Ot Z98.890 OTHER SPECIFIED POSTPROCEDURAL STATES 04/15/2018 GONZÁLEZ BRADEN, DAMON Gunn Ot I48.0 PAROXYSMAL ATRIAL FIBRILLATION 04/15/2018 DAMON CLAUDIO MD Ot K92.2 GASTROINTESTINAL HEMORRHAGE, UNSPECIFIED 04/15/2018 GONZÁLEZ BRADEN, DAMON J Ot N28.9 DISORDER OF KIDNEY AND URETER, UNSPECIFI 04/15/2018 GONZÁLEZ BRADEN, DAMON Gunn Ot R00.2 PALPITATIONS 04/15/2018 GONZÁLEZ BRADEN, DAMON Gunn Ot R07.89 OTHER CHEST PAIN 05/04/2018 YURI MARSHALL DO Ot D64.9 ANEMIA, UNSPECIFIED 05/04/2018 YURI MARSHALL DO Ot E11.9 TYPE 2 DIABETES MELLITUS WITHOUT COMPLIC 05/04/2018 YURI MARSHALL DO Ot F32.9 MAJOR DEPRESSIVE DISORDER, SINGLE EPISOD 05/04/2018 YURI MARSHALL DO Ot I10 ESSENTIAL (PRIMARY) HYPERTENSION 05/04/2018 YURI MARSHALL DO Ot I48.2 CHRONIC ATRIAL FIBRILLATION 05/04/2018 YURI MARSHALL DO Ot K21.9 GASTRO-ESOPHAGEAL REFLUX DISEASE WITHOUT 05/04/2018 YURI MARSHALL DO Ot K56.609 UNSP INTESTNL OBST, UNSP TO PARTIAL V 05/04/2018 YURI MARSHALL DO Ot K59.09 OTHER CONSTIPATION 05/04/2018 YURI MARSHALL DO Ot K85.90 ACUTE PANCREATITIS WITHOUT NECROSIS OR I 05/04/2018 ESTELLA MARSHALL DOI Ot Z79.01 DIGITAL PRODUCTION ARTIST (CURRENT) USE OF 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 05/04/2018 JOANNA PLATT YURI Ot Z82.49 FAMILY HX OF ISCHEM HEART DIS AND OTH DI 05/04/2018 JOANNA PLATTYURI Ot Z85.830 PERSONAL HISTORY OF MALIGNANT NEOPLASM O 05/04/2018 JOANNA PLATT YURI Ot Z87.39 PERSONAL HISTORY OF DISEASES OF THE MS S 05/04/2018 JOANNA PLATT YURI Ot Z92.21 PERSONAL HISTORY OF ANTINEOPLASTIC CHEMO 05/04/2018 JOANNA PLATTYURI Ot Z92.3 PERSONAL HISTORY OF IRRADIATION 06/07/2018 BRAVO SAHU DOLINE S Ot R11.0 NAUSEA 06/07/2018 EDVINFELICIANOYONNY DO JOYCE S Ot R19.7 DIARRHEA, UNSPECIFIED Procedures Code Description Performed By Performed On 45.16 ESOPHAGOGASTRODUODENOSCOPY [ EGD] W/CLOSE 11/20/2012 45.23 COLONOSCOPY 11/20/2012 91727 AMERITOX 05/29/2014 90204 SLEEP STUDY ([facility]- SLEEP STUDY) 06/22/2014 [id number] INSPECTION OF UPPER INTESTINAL TRACT, EN 11/05/2015 9RAY0BD INSPECTION OF LOWER INTESTINAL TRACT, EN 11/05/2015 [id number] DRAINAGE OF STOMACH WITH DRAINAGE DEVICE 05/03/2018 Results Test Result Range Complete blood count [...] ABO+Rh group AP NRG Transfusion band number [id number] NRG Blood group antibody screen NEGATIVE NRG [...] CELLS LEUKO REDUCED AS1 TRANSFUSED 09/03/17 1752 NR Blood type T Indirect antibody screen panel - 09/03/17 11:30 ABO+Rh group AP NRG Transfusion band number [id number] NR Blood group antibody screen NEGATIVE NRG Whole blood hemoglobin and hematocrit panel - [...] urinalysis with reflex to culture YES NRG Complete blood count (CBC) with automated white blood cell (WBC) differential - 05/02/18 22:52 Blood leukocytes automated count (number/volume) 12.3 10*3/uL 4.3-11.0 Blood erythrocytes automated count (number/volume) 3.07 10*6/uL 4.35-5.85 Venous blood hemoglobin measurement (mass/volume) 8.8 g/dL 11.5-16.0 Blood hematocrit (volume fraction) 28 % 35-52 Automated erythrocyte mean corpuscular volume 91 [foz_us] 80-99 Automated erythrocyte mean corpuscular hemoglobin (mass per erythrocyte) 29 pg 25-34 Automated erythrocyte mean corpuscular hemoglobin concentration measurement ( mass/volume) 32 g/dL 32-36 Automated erythrocyte distribution width ratio 14.3 % 10.0-14.5 Automated blood platelet count (count/volume) 342 10*3/uL 130-400 Automated blood platelet mean volume measurement 9.9 [foz_us] 7.4-10.4 Automated blood neutrophils/100 leukocytes 78 % 42-75 Automated blood lymphocytes/100 leukocytes 15 % 12-44 Blood monocytes/100 leukocytes 6 % 0-12 Automated blood eosinophils/100 leukocytes 1 % 0-10 Automated blood basophils/100 leukocytes 0 % 0-10 Blood neutrophils automated count (number/volume) 9.6 10*3 1.8-7.8 Blood lymphocytes automated count (number/volume) 1.8 10*3 1.0-4.0 Blood monocytes automated count (number/volume) 0.8 10*3 0.0-1.0 Automated eosinophil count 0.1 10*3/uL 0.0-0.3 Automated blood basophil count (count/volume) 0.0 10*3/uL 0.0-0.1 Comprehensive metabolic panel - 05/02/18 22:52 Serum or plasma sodium measurement (moles/volume) 140 mmol/L 135-145 Serum or plasma potassium measurement (moles/volume) 4.1 mmol/L 3.6-5.0 Serum or plasma chloride measurement (moles/volume) 105 mmol/L 98-107 Carbon dioxide 21 mmol/L 21-32 Serum or plasma anion gap determination (moles/volume) 14 mmol/L 5-14 Serum or plasma urea nitrogen measurement (mass/volume) 36 mg/dL 7-18 Serum or plasma creatinine measurement (mass/volume) 1.35 mg/dL 0.60-1.30 Serum or plasma urea nitrogen/creatinine mass ratio 27 NRG Serum or plasma creatinine measurement with calculation of estimated glomerular filtration rate 39 NRG Serum or plasma glucose measurement (mass/volume) 142 mg/dL 70-105 Serum or plasma calcium measurement (mass/volume) 10.0 mg/dL 8.5-10.1 Serum or plasma total bilirubin measurement (mass/volume) 0.4 mg/dL 0.1-1.0 Serum or plasma alkaline phosphatase measurement (enzymatic activity/volume) 77 U/L 40-136 Serum or plasma aspartate aminotransferase measurement (enzymatic activity/ volume) 16 U/L 5-34 Serum or plasma alanine aminotransferase measurement (enzymatic activity/volume ) 17 U/L 0-55 Serum or plasma protein measurement (mass/volume) 7.5 g/dL 6.4-8.2 Serum or plasma albumin measurement (mass/volume) 4.4 g/dL 3.2-4.5 CALCIUM CORRECTED 9.7 mg/dL 8.5-10.1 Serum or plasma amylase measurement (enzymatic activity/volume) - 05/02/18 22: 52 Serum or plasma amylase measurement (enzymatic activity/volume) 558 U/L 25-125 Lipase - 05/02/18 22:52 Lipase 1432 U/L 8-78 Complete blood count (CBC) with automated white blood cell (WBC) differential - 05/03/18 05:10 Blood leukocytes automated count (number/volume) 10.7 10*3/uL 4.3-11.0 Blood erythrocytes automated count (number/volume) 2.71 10*6/uL 4.35-5.85 Venous blood hemoglobin measurement (mass/volume) 7.9 g/dL 11.5-16.0 Blood hematocrit (volume fraction) 25 % 35-52 Automated erythrocyte mean corpuscular volume 92 [foz_us] 80-99 Automated erythrocyte mean corpuscular hemoglobin (mass per erythrocyte) 29 pg 25-34 Automated erythrocyte mean corpuscular hemoglobin concentration measurement ( mass/volume) 32 g/dL 32-36 Automated erythrocyte distribution width ratio 14.3 % 10.0-14.5 Automated blood platelet count (count/volume) 313 10*3/uL 130-400 Automated blood platelet mean volume measurement 9.7 [foz_us] 7.4-10.4 Automated blood neutrophils/100 leukocytes 74 % 42-75 Automated blood lymphocytes/100 leukocytes 13 % 12-44 Blood monocytes/100 leukocytes 12 % 0-12 Automated blood eosinophils/100 leukocytes 1 % 0-10 Automated blood basophils/100 leukocytes 0 % 0-10 Blood neutrophils automated count (number/volume) 7.9 10*3 1.8-7.8 Blood lymphocytes automated count (number/volume) 1.4 10*3 1.0-4.0 Blood monocytes automated count (number/volume) 1.3 10*3 0.0-1.0 Automated eosinophil count 0.1 10*3/uL 0.0-0.3 Automated blood basophil count (count/volume) 0.0 10*3/uL 0.0-0.1 Comprehensive metabolic panel - 05/03/18 05:10 Serum or plasma sodium measurement (moles/volume) 141 mmol/L 135-145 Serum or plasma potassium measurement (moles/volume) 4.7 mmol/L 3.6-5.0 Serum or plasma chloride measurement (moles/volume) 110 mmol/L 98-107 Carbon dioxide 21 mmol/L 21-32 Serum or plasma anion gap determination (moles/volume) 10 mmol/L 5-14 Serum or plasma urea nitrogen measurement (mass/volume) 32 mg/dL 7-18 Serum or plasma creatinine measurement (mass/volume) 1.03 mg/dL 0.60-1.30 Serum or plasma urea nitrogen/creatinine mass ratio 31 NRG Serum or plasma creatinine measurement with calculation of estimated glomerular filtration rate 54 NRG Serum or plasma glucose measurement (mass/volume) 111 mg/dL 70-105 Serum or plasma calcium measurement (mass/volume) 8.8 mg/dL 8.5-10.1 Serum or plasma total bilirubin measurement (mass/volume) 0.3 mg/dL 0.1-1.0 Serum or plasma alkaline phosphatase measurement (enzymatic activity/volume) 64 U/L 40-136 Serum or plasma aspartate aminotransferase measurement (enzymatic activity/ volume) 13 U/L 5-34 Serum or plasma alanine aminotransferase measurement (enzymatic activity/volume ) 14 U/L 0-55 Serum or plasma protein measurement (mass/volume) 6.2 g/dL 6.4-8.2 Serum or plasma albumin measurement (mass/volume) 3.6 g/dL 3.2-4.5 CALCIUM CORRECTED 9.1 mg/dL 8.5-10.1 Lipase - 05/03/18 05:10 Lipase 389 U/L 8-78 C DIFFICILE AG + TOXIN A/B. - 05/07/18 07:55 RESULTS NEGATIVE FOR ANTIGEN AND TOXIN A/[facility] [id number] - 05/07/18 07:55 Encounters ACCT No. Visit Date/Time Discharge Status Pt. Type Provider Facility Loc./Unit Complaint [id number] 05/27/2014 14:11:00 05/27/2014 23:59:59 [facility] Outpatient BOOKER CARMONA APRN 03/12/11 05/26/2018 06:09:37 05/26/2018 23:59:59 CLS Outpatient Joyce aShu [id number] 11/13/2014 09:57:55 ACT Document Registration [id number] 05/07/2018 09:34:00 05/07/2018 23:59:59 CLS Outpatient JOYCE SAHU DO [facility] LAB UNCONTROLLABLE DIARREHEA,NAUSEA [id number] 05/03/2018 00:24:00 05/04/2018 16:06:00 DIS Inpatient YURI MARSHALL DO [facility] 4TH DISTAL SMALL BOWEL OBSTRUCTION,PANCREATITIS [id number] 04/08/2018 10:38:00 04/08/2018 13:13:00 DIS Emergency JOSE GODFREY [facility] ER NAUSE;HEAD PAIN [id number] 02/25/2018 07:21:00 02/25/2018 23:59:59 CLS Outpatient DAMON CLAUDIO MD [facility] CARD CHEST PAIN,HTN,PAF,GERD [id number] 01/28/2018 10:53:00 01/28/2018 23:59:59 CLS Outpatient BRAVO SAHU DOLINE S [facility] RAD LOCALIZED SWELLING LEFT LOWER LEG [id number] 10/29/2017 10:30:00 10/29/2017 23:59:59 CLS Preadmit DIANNA ZURITA R PRODUCTION COUNTER [facility] RAD ANNUAL SCREENING [id number] 10/01/2017 09:00:00 10/01/2017 23:59:59 CLS Outpatient BRAVO SAHU DOLINE S [facility] RAD PANCREATIC MASS F/ U [id number] 09/13/2017 01:21:00 09/13/2017 02:44:00 DIS Emergency KHRIS BRADEN, BABAK T [facility] ER A-FIB [id number] 09/03/2017 13:00:00 09/04/2017 20:46:00 DIS Inpatient CONOR PLATT JOYCE S [facility] 4TH ANEMIA [id number] 08/27/2017 09:45:00 08/27/2017 23:59:59 CLS Preadmit RIGO SAHU DOQUELINE S [facility] RAD SCREENING [id number] 08/06/2017 11:50:00 08/06/2017 23:59:59 CLS Outpatient DAMON CLAUDIO MD [facility] CARD CHEST PAIN [id number] 07/02/2017 15:11:00 07/02/2017 17:30:00 DIS Emergency DEMOND BRADEN, JH Ricci [facility] ER A-FIB EPISODE [id number] 03/31/2017 19:11:00 03/31/2017 22:03:00 DIS Emergency MARIE HAN DO [facility] ER DIZZINESS [id number] 2017 11:34:00 2017 17:44:00 DIS Emergency HEATHER LUKE MD [facility] ER WEAKNESS/VISION DISTURBANCE [id number] 03/11/2017 22:30:00 03/11/2017 23:40:00 DIS Emergency BABAK PINEDO MD [facility] ER RT SIDED ABDOMINAL PAIN [id number] 12/07/2016 21:01:00 12/08/2016 00:15:00 DIS Emergency MARGO JOHNSON PRODUCTION COUNTER [facility] ER STOMACH PAIN [id number] 09/12/2016 10:08:00 09/12/2016 23:59:59 CLS Outpatient GONZÁLEZ BRADEN, DAMON Gunn [facility] LAB CHEST PAIN,HTN,PAF,GI BLEED [id number] 02/29/2016 09:38:00 02/29/2016 23:59:59 CLS Outpatient RACHELLEER DO JOYCE S [facility] RAD DYSPHAGIA,WEAKNESS, FATIGUE,ANEMIA,EDEMA [id number] 01/05/2016 15:26:00 01/05/2016 23:59:59 CLS Outpatient RACHELLEER DO JOYCE S [facility] RAD SCREENING [id number] 12/25/2015 06:17:00 12/26/2015 13:30:00 DIS Inpatient EDVINNDYONNY DO JOYCE S [facility] ICU CHEST PAIN [id number] 11/10/2015 07:03:00 11/10/2015 23:59:59 CLS Outpatient BEST HOOVER MD [facility] SDC GI BLEED,ANEMIA [id number] 11/04/2015 08:34:00 11/06/2015 14:30:00 DIS Inpatient CONOR PLATT JOYCE S [facility] 4TH ANEMIA [id number] 07/29/2015 05:35:00 07/29/2015 23:59:59 CLS Outpatient BEST HOOVER MD [facility] PREOP COLONOSCOPY [id number] 05/09/2015 22:36:00 05/10/2015 00:45:00 DIS Emergency BABAK PINEDO MD [facility] ER SOA [id number] 11/13/2014 09:55:00 11/13/2014 12:10:00 DIS Emergency JOHNSONMARGO PRODUCTION COUNTER [facility] ER FALL/LEFT KNEE INJ [id number] 06/24/2014 14:51:00 06/24/2014 23:59:59 CLS Outpatient GONZÁLEZ BRADEN, DAMON Gunn [facility] RAD CAROTID BRUIT, CP,HTN, PAF [id number] 05/18/2014 03:30:00 05/18/2014 12:00:00 DIS Inpatient LARRY PLUNKETT MD [facility] CSD CHEST PAIN [id number] 04/21/2014 21:20:00 04/22/2014 19:25:00 DIS Inpatient BRAVO SAHU DOLINE S [facility] ICU A FIB WITH RVR [id number] 09/18/2013 12:50:00 09/18/2013 23:59:59 CLS Outpatient RIGO SAHU DOQUELINE S [facility] RAD CEPHALGIA, DIZZINESS [id number] 09/02/2013 13:23:00 09/02/2013 23:59:59 CLS Outpatient EDVINNDYONNY PLATT JOYCE S [facility] RAD CEPHALGIA, DIZZINESS [id number] 12/07/2012 06:17:00 12/07/2012 09:07:00 DIS Emergency GUILLEMARIE Solo DO [facility] ER SOA;ABD PAIN [id number] 11/22/2012 18:28:00 11/22/2012 23:59:59 CLS Outpatient [id number] 11/19/2012 18:41:00 11/21/2012 17:00:00 DIS Inpatient RACHELLEER DO JOYCE S [facility] 4TH GI BLEED [id number] 11/09/2012 14:58:00 11/10/2012 14:11:00 DIS Inpatient ALDAIR BRADEN, BRENDAN Mata [facility] 4TH BLURRED VISION NAUSEA DIZZY [id number] 10/24/2012 14:32:00 10/24/2012 16:22:00 DIS Emergency BABAK PINEDO MD [facility] ER FALL/FACIAL INJURY [id number] 10/18/2012 20:15:00 10/19/2012 12:30:00 DIS Inpatient JOYCE SAHU DO S [facility] ICU A FIB; RVR [id number] 07/30/2018 15:11:00 ACT Inpatient JOYCE SAHU DO [facility] 4TH ANEMIA [id number] 01/25/2018 08:50:00 Document Registration [id number] 01/23/2018 08:53:00 Document Registration [id number] 01/17/2018 15:39:00 Document Registration [id number] 06/24/2014 15:32:00 Document Registration [id number] 06/24/2014 15:31:00 Document Registration [id number] 06/24/2014 15:31:00 Document Registration [id number] 09/29/2012 03:08:00 Document Registration [id number] 09/16/2012 11:30:00 Document Registration [id number] 07/11/2012 07:13:00 Document Registration [id number] 06/13/2012 22:45:00 Document Registration [id number] 01/02/2012 01:06:00 Document Registration [id number] 03/14/2011 09:46:00 Document Registration [id number] 01/23/2011 00:30:00 Document Registration [id number] 02/03/2010 09:59:00 Document Registration [id number] 11/30/2009 11:00:00 Document Registration [id number] 11/25/2009 13:10:00 Document Registration [id number] 10/21/2009 14:31:00 Document Registration [id number] 09/30/2009 08:17:00 Document Registration [id number] 09/28/2009 09:40:00 Document Registration [id number] 04/09/2009 00:08:00 Document Registration
[2018-07-30 16:00] VITALS: BP 134/71
[2018-07-30] MEDS: cefTRIAXone FOR IV USE 1,000 MG in WATER (STERILE) FOR INJECTION 10 ML IV SCH (17:35)
[2018-07-30 20:00] VITALS: BP 126/72
[2018-07-30] MEDS ORDERED: ALPRAZolam 0.25 MG (XANAX) TAB PO PRN (20:00)
[2018-07-30] MEDS ORDERED: CATHETER FLUSH 10 ML SYR IV PRN (20:15)
[2018-07-30] MEDS ORDERED: NS IV 500 ML 500 ML ONE (20:29)
--- NOTE | 2018-07-30 20:35 | History & Physicial ---
History of Present Illness History of Present Illness Reason for visit/HPI This is a 68 year old female with chronic anemia who is on chronic anticoagulation with xarelto who stated that she has been feeling more fatigued and short of air for the past few weeks. When she was having difficulty ambulating to her bathroom she went to the Urgent Care for evaluation. She was found to be anemic with a hemoglobin of 6.2 and the nurse practitioner called me for a direct admit. She denies any recent blood in her stools or change in the color of her stools. She further denies any abdominal pain. Date of Admission Jul 30, 2018 at 15:11 Date Seen by a Provider: Jul 30, 2018 Time Seen by a Provider: 20:30 I consulted on this patient on 07/30/18 20:30 Attending Physician Joyce Sahu DO Admitting Physician Joyce Sahu DO Consult Allergies and Home Medications Allergies Coded Allergies: Beta-Blockers (Beta-Adrenergic Bloc (Unverified Allergy, Unknown, 11/20/12) atenolol (Verified Allergy, Unknown, 04/05/07) Home Medications Acetaminophen 500 Mg Tablet, 1,000 MG PO TID, (Reported) TAKES 2 (500MG) TABLETS Cholecalciferol (Vitamin D3) 1,000 Unit Capsule, 1,000 UNIT PO DAILY, (Reported) Cyanocobalamin (Vitamin B-12) 1,000 Mcg Tablet, 1,000 MCG PO DAILY, (Reported) Diltiazem HCl 240 Mg Cap.er.24h, 240 MG PO DAILY, (Reported) Fluticasone Propionate 16 Gm [place].susp, 2 SPRAYS NS DAILY PRN for ALLERGIES, ( Reported) Losartan Potassium 50 Mg Tablet, 50 MG PO DAILY, (Reported) Propafenone HCl 225 Mg Cap, 225 MG PO TID, (Reported) Rivaroxaban 20 Mg Tablet, 20 MG PO HS, (Reported) Sennosides/Docusate Sodium 1 Each Tablet, 1 TAB PO BID, (Reported) Sertraline HCl 25 Mg Tablet, 25 MG PO DAILY, (Reported) Patient Home Medication List Home Medication List Reviewed: Yes Past Eigbvxn-Jkomhr-Bfpoow Hx Patient Social History Alcohol Use: Denies Use Number of Drinks Today: HH Alcohol Beverage of Choice: Wine Recreational Drug Use: No 2nd Hand Smoke Exposure: No Physical Abuse Screen: No Sexual Abuse: No Recent Hopitalizations: Yes (D/C 09/03/17) Immunizations Up To Date Tetanus Booster (TDap): Unknown Pediatric: No Date of Pneumonia Vaccine: Mar 11, 2011 Date of Influenza Vaccine: May 04, 2018 Seasonal Allergies Seasonal Allergies: Yes Surgeries Yes Abdominal, Appendectomy, Section, Gallbladder, 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, Neurological, Oophorectomy Respiratory No Currently Using CPAP: No Currently Using BIPAP: No Cardiovascular Yes (RBBB) Atrial Fibrillation, Heart Murmur, Hypertension, Valvular Heart Disease Neurological Yes Headaches /Migraines, Neuropathy 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 System Hx 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 Disorders: Yes (CERVICAL DYSPLASIA) Sexually Transmitted Disease: No HIV/AIDS: No Female 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 Genitourinary Yes (RENAL INSUFFICIENCY) Kidney Infection, Bladder Infection, Renal Failure Gastrointestinal Yes Gastroesophageal Reflux, Gastrointestinal Bleed, Chronic Constipation, Hiatal Hernia, Gall Bladder Disease Musculoskeletal Yes (KNEES, BACK, HIPS) Arthritis, Chronic Back Pain Endocrine History of Endocrine Disorders: Yes (Pre Diabetic) Endocrine Disorders: Diabetes, Non-Insulin dep HEENT History of HEENT Disorders: No Loss of Vision: Denies Hearing Impairment: Denies Cancer Yes Bone Did You Recieve Any Treatments: Yes Type of Treatment: Chemotherapy, Radiation, Surgical Intervention Psychosocial History of Psychiatric Problem: Yes Behavioral Health Disorders: Anxiety Integumentary History of Skin or Integumenta: No Blood Transfusions History of Blood Disorders: Yes (ANEMIA) Adverse Reaction to a Blood Tr: No Family Medical History Significant Family History: Heart Disease Family Hx: Arthritis 19 MOTHER, Onset:30's - 40 (RA) Cardiovascular disease 19 MOTHER, Onset:40's - 50 Completed stroke 19 MOTHER, Onset:60 years & older Headache disorder 19 FATHER, Onset:Unknown (severe sinus headaches) Hypertension 19 MOTHER, Onset:50's - 60 Myocardial infarction 19 MOTHER, Onset:60 years & older Psychosocial problem 19 FATHER, Onset:Unknown No Family History of: AIDS Abdominal aortic aneurysm Sundeep's disease Alcoholism Alzheimer's disease Aphasia Asthma Cancer of mouth Cataracts Colon cancer Congenital disease Congenital heart disease Coronary thrombosis Cystic fibrosis Deafness or hearing loss Dementia Diabetes mellitus Drug abuse Dysphasia Fibrocystic disease of breast Gastroenteritis Glaucoma Hypercholesterolemia Infertility Kidney disease Neoplasm Not obtainable due to adoption Osteoporosis Parkinson's disease Prostate cancer Respiratory disorder Seizure disorder Severe allergy Thyroid disease Tuberculosis Visual disorder Review of Systems Constitutional: weakness EENTM: No see HPI, No no symptoms reported, No ear discharge, No hearing loss, No ear pain, No blurred vision, No double vision, No eye pain, No tearing, No vision loss, No dental problems, No hoarseness, No mouth pain, No mouth swelling , No epistaxis, No nose congestion, No nose pain, No throat pain, No throat swelling, No other Respiratory: No no symptoms reported, No see HPI, No cough, No dyspnea on exertion, No hemoptysis, No orthopnea, No phlegm, No short of breath, No stridor , No wheezing, No other Cardiovascular: No no symptoms reported, No see HPI, No chest pain, No edema, No Hx of Intervention, No palpitations, No syncope, No vascular heart diseas, No other Gastrointestinal: No RUQ, No LUQ, No RLQ, No LLQ, No no symptoms reported, No see HPI, No abdominal pain, No constipation, No diarrhea, No dysphagia, No hematemesis, No heartburn, No jaundice, No loss of appetite, No melena, No nausea, No vomiting, No other Musculoskeletal: back pain Skin: No no symptoms reported, No see HPI, No change in color, No change in hair/nails, No dryness, No hx of skin cancer, No lesions, No lumps, No pruritus , No rash, No other Psychiatric/Neurological: Weakness Physical Exam Vital Signs Vital Signs - First Documented 07/30/18 17:02 Pulse 82 Capillary Refill : Height, Weight, BMI Height: 5'6.00" Weight: 189lbs. 0.0oz. 85.821400ol; 30.5 BMI Method:Stated General Appearance: No Apparent Distress HEENT: Normal ENT Inspection, Pale Conjunctivae (L), Pale Conjunctivae (R) Neck: Supple Respiratory: Lungs Clear Cardiovascular: Regular Rate, Rhythm, Systolic Murmur, Gallop/S3 Gastrointestinal: Normal Bowel Sounds, Non Tender, Soft Rectal: Deferred Back: No CVA Tenderness Extremity: Non Tender, No Calf Tenderness, No Pedal Edema Neurologic/Psychiatric: Alert, Oriented x3 Skin: Warm/Dry, Pallor Assessment/Plan Assessment and Plan 1. Acute on Chronic Anemia--admit for blood transfusion 2. History of atrial fibrillation--restart rhythmol and cardizem, hold xarelto 3. GERD--start protonix 4. Hypertension--resume cardizem Admission Diagnosis Admission Status: Observation Clinical Quality Measures DVT/VTE Risk/Contraindication: Risk Factor Score Per Nursin RFS Level Per Nursing on Admit: 4+=Very High JOYCE SAHU DO Jul 30, 2018 20:35
[2018-07-30 20:45] VITALS: BP 125/71
[2018-07-30 21:06] VITALS: BP 121/70
[2018-07-30] MEDS: DILTIAZEM 240 MG (CARDIZEM CD) CAP PO SCH (23:00)
[2018-07-30] MEDS: PROPAFENONE 150 MG (RYTHMOL) TABLET PO SCH (23:00)
[2018-07-30] MEDS: CATHETER FLUSH 10 ML SYR IV SCH (23:04)
[2018-07-31] VITALS (9 sets, daily range): BP systolic 119–170; BP diastolic 65–75
[2018-07-31 06:17] LABS: BASOPHILS % (AUTO) 1 % (0-10); EOSINOPHILS # (AUTO) 0.1 10^3/uL (0.0-0.3); EOSINOPHILS % (AUTO) 2 % (0-10); HEMATOCRIT 28 % (35-52); HEMOGLOBIN 8.5 G/DL (11.5-16.0); LYMPHOCYTES # (AUTO) 2.3 X 10^3 (1.0-4.0); LYMPHOCYTES % (AUTO) 36 % (12-44); MEAN CORPUSCULAR HEMOGLOBIN 24 PG (25-34); MEAN CORPUSCULAR HGB CONC 30 G/DL (32-36); MEAN CORPUSCULAR VOLUME 80 FL (80-99); MEAN PLATELET VOLUME 10.1 FL (7.4-10.4); MONOCYTES # (AUTO) 0.6 X 10^3 (0.0-1.0); MONOCYTES % (AUTO) 10 % (0-12); NEUTROPHILS # (AUTO) 3.2 X 10^3 (1.8-7.8); NEUTROPHILS % (AUTO) 51 % (42-75); PLATELET COUNT 281 10^3/uL (130-400); RED CELL DISTRIBUTION WIDTH 17.5 % (10.0-14.5); WHITE BLOOD COUNT 6.3 10^3/uL (4.3-11.0)
[2018-07-31 06:45] LABS: ALBUMIN 4.1 GM/DL (3.2-4.5); BILIRUBIN,TOTAL 0.7 MG/DL (0.1-1.0); CALCIUM 9.1 MG/DL (8.5-10.1); POTASSIUM 4.2 MMOL/L (3.6-5.0)
[2018-07-31] MEDS: PROPAFENONE 150 MG (RYTHMOL) TABLET PO SCH ×3 (06:50→20:28)
[2018-07-31] MEDS: CATHETER FLUSH 10 ML SYR IV SCH ×3 (06:51→22:00)
[2018-07-31] MEDS: PANTOPRAZOLE 40 MG (PROTONIX) TAB PO SCH (08:40)
[2018-07-31] MEDS: DILTIAZEM 240 MG (CARDIZEM CD) CAP PO SCH (08:40)
[2018-07-31] MEDS: cefTRIAXone FOR IV USE 1,000 MG in WATER (STERILE) FOR INJECTION 10 ML IV SCH (08:40)
[2018-07-31] MEDS ORDERED: DILTIAZEM 240 MG (CARDIZEM CD) CAP PO SCH (09:00)
[2018-07-31] MEDS ORDERED: PANTOPRAZOLE 40 MG (PROTONIX) VIAL IV SCH (09:00)
[2018-07-31] MEDS ORDERED: DOCU-143 PO (09:42)
[2018-07-31] MEDS ORDERED: LISI10TA2 PO (09:42)
[2018-07-31] MEDS ORDERED: PANT40TA3 PO (09:42)
[2018-07-31] MEDS ORDERED: SERT50TA9 PO (09:42)
--- NOTE | 2018-07-31 09:45 | NUR ---
SPOKE WITH THE PATIENT ABOUT HER MEDICATIONS. WE WENT OVER THE EXT MED HX AND SHE VERIFIED HOW SHE TAKES THEM. SHE FILLED NITROFURANTOIN 07-30-18 #14 HOWEVER DID NOT START THIS PRIOR TO BEING ADMITTED. I DID NOT INCLUDE IT ON THE MED REC AT THIS TIME. SHE FILLED LISINOPRIL 10MG #30 07-24-18 HOWEVER SHE DOES NOT THINK SHE IS TAKING THIS AND LOSARTAN, SHE IS UNSURE WHICH SHE IS SUPPOSED TO BE TAKING. I CALLED DR. CLAUDIO'S OFFICE WHO STATES HER LISINOPRIL WAS CHANGED TO LOSARTAN IN APRIL BECAUSE SHE REPORTED THE LISINOPRIL CAUSED A COUGH. SHE STATES THE PHARMACY HAS THEM ON AUTO REFILL AND THAT IS WHY IT WAS REFILLED. SHE FILLED ATROPINE DROPS 07-18-18 AND WAS USING THEM IN PREPARATION FOR HER EYE SURGERY HOWEVER SINCE SHE IS ADMITTED AND SURGERY WAS SCHEDULED FOR TODAY SHE HAS RESCHEDULED THAT PROCEDURE AND WILL NOT TAKE THE EYE DROPS UNTIL CLOSER TO THE RESCHEDULED DATE. OTC MEDS: TYLENOL 1000MG TID VITAMIN D DAILY COLACE BID SHE STATES SHE IS SUPPOSED TO TAKE B12 OTC HOWEVER SHE HAS NOT BEEN ABLE TO AFFORD IT SO HAD NOT TAKEN IT FOR AWHILE. Addendum: 07/31/18 at 1006 by YURI NORMAN [facility] I WENT BACK TO LET THE PATIENT KNOW WHAT DR. CLAUDIO'S OFFICE SAID ABOUT THE LISINOPRIL AND LOSARTAN. PATIENT STATES SHE HAS BEEN TAKING THE LISINOPRIL BECAUSE SHE THOUGHT THE LOSARTAN WAS WHAT CAUSED HER COUGH. SHE STATES THAT IS PROBABLY WHY SHE STILL HAS A COUGH AND SHE WILL START THE LOSARTAN WHEN SHE GOES HOME. I LEFT THE LOSARTAN ON THE MED REC AND REMOVED THE LISINOPRIL AT THIS TIME.
[2018-07-31] MEDS ORDERED: IRON SUCROSE 200 MG/10 ML (VENOFER) VIAL IV NR (15:00)
--- NOTE | 2018-07-31 18:21 | Progress Note (SOAP) ---
Subjective Date Seen by a Provider: Jul 31, 2018 Time Seen by a Provider: 12:30 Subjective/Events-last exam Fwup Acute on Chronic Anemia, History of atrial fibrillation, GERD, Hypertension , UTI. Feeling better but still weak. Objective Exam Vital Signs Date Time Temp Pulse Resp B/P (MAP) Pulse Ox O2 Delivery O2 Flow Rate FiO2 07/31/18 13:00 69 07/31/18 12:00 98.9 81 20 142/68 (92) 100 Room Air 07/31/18 08:00 100 Room Air 07/31/18 08:00 99.0 79 20 144/65 (91) 100 Room Air 07/31/18 07:00 73 07/31/18 04:00 98.6 75 18 146/75 (98) 100 Room Air 07/31/18 03:10 98.6 75 18 146/75 100 Room Air 07/31/18 01:00 88 07/31/18 00:28 99.4 86 20 130/72 99 Room Air 07/31/18 00:08 99.6 88 20 119/68 100 Room Air 07/31/18 00:06 99.6 88 20 119/68 100 Room Air 07/31/18 00:00 99.4 86 20 130/72 (91) 99 Room Air 07/30/18 21:06 99.8 85 20 121/70 100 Room Air 07/30/18 20:45 99.4 81 20 125/71 100 Room Air 07/30/18 20:00 99 Room Air 07/30/18 20:00 98.8 79 17 126/72 (90) 98 Room Air 07/30/18 19:00 89 I & O 07/31/18 07:00 Intake Total 650 ml Balance 650 ml Capillary Refill : General Appearance: No Apparent Distress Respiratory: Lungs Clear Cardiovascular: Regular Rate, Rhythm, Systolic Murmur Gastrointestinal: normal bowel sounds, non tender, soft Neurologic/Psychiatric: Alert, Oriented x3 Skin: Pallor Results Lab Laboratory Tests 07/31/18 05:40: White Blood Count 6.3, Red Blood Count 3.53L, Hemoglobin 8.5L, Hematocrit 28L, Mean Corpuscular Volume 80, Mean Corpuscular Hemoglobin 24L, Mean Corpuscular Hemoglobin Concent 30L, Red Cell Distribution Width 17.5H, Platelet Count 281, Mean Platelet Volume 10.1, Neutrophils (%) (Auto) 51, Lymphocytes (%) (Auto) 36 , Monocytes (%) (Auto) 10, Eosinophils (%) (Auto) 2, Basophils (%) (Auto) 1, Neutrophils # (Auto) 3.2, Lymphocytes # (Auto) 2.3, Monocytes # (Auto) 0.6, Eosinophils # (Auto) 0.1, Basophils # (Auto) 0.0, Sodium Level 138, Potassium Level 4.2, Chloride Level 109H, Carbon Dioxide Level 20L, Anion Gap 9, Blood Urea Nitrogen 26H, Creatinine 1.00, Estimat Glomerular Filtration Rate 55, BUN/ Creatinine Ratio 26, Glucose Level 87, Calcium Level 9.1, Corrected Calcium 9.0 , Total Bilirubin 0.7, Aspartate Amino Transf (AST/SGOT) 16, Alanine Aminotransferase (ALT/SGPT) 16, Alkaline Phosphatase 71, Total Protein 7.0, Albumin 4.1 Assessment/Plan Assessment/Plan Assess & Plan/Chief Complaint 1. Acute on Chronic Anemia--improved post transfusion, give IV venofer today and repeat CBC in AM 2. History of atrial fibrillation--restart rhythmol and cardizem, restart xarelto 3. GERD--on protonix 4. Hypertension--resume cardizem Clinical Quality Measures Admission Status Admission Dx 1. Acute on Chronic Anemia--admit for blood transfusion 2. History of atrial fibrillation--restart rhythmol and cardizem, hold xarelto 3. GERD--start protonix 4. Hypertension--resume cardizem DVT/VTE Risk/Contraindication: Risk Factor Score Per Nursin RFS Level Per Nursing on Admit: 4+=Very High ANTHONY PERDOMO DO Jul 31, 2018 18:21
[2018-07-31] MEDS: RIVAROXABAN 20 MG TABLET (XARELTO) PO SCH (18:41)
[2018-07-31] MEDS ORDERED: MULT-17 PO (18:54)
[2018-07-31] MEDS: SERTRALINE 50 MG (ZOLOFT) TABLET PO SCH (20:29)
[2018-08-01] VITALS: BP 115/56
[2018-08-01] MEDS: PROPAFENONE 150 MG (RYTHMOL) TABLET PO SCH ×3 (05:13→21:53)
[2018-08-01] MEDS: CATHETER FLUSH 10 ML SYR IV SCH ×3 (05:15→21:53)
[2018-08-01 07:30] LABS: BASOPHILS % (AUTO) 0 % (0-10); EOSINOPHILS # (AUTO) 0.1 10^3/uL (0.0-0.3); EOSINOPHILS % (AUTO) 1 % (0-10); HEMATOCRIT 26 % (35-52); HEMOGLOBIN 7.8 G/DL (11.5-16.0); LYMPHOCYTES # (AUTO) 0.7 X 10^3 (1.0-4.0); LYMPHOCYTES % (AUTO) 8 % (12-44); MEAN CORPUSCULAR HEMOGLOBIN 25 PG (25-34); MEAN CORPUSCULAR HGB CONC 31 G/DL (32-36); MEAN CORPUSCULAR VOLUME 80 FL (80-99); MEAN PLATELET VOLUME 10.3 FL (7.4-10.4); MONOCYTES # (AUTO) 0.6 X 10^3 (0.0-1.0); MONOCYTES % (AUTO) 6 % (0-12); NEUTROPHILS # (AUTO) 7.6 X 10^3 (1.8-7.8); NEUTROPHILS % (AUTO) 85 % (42-75); PLATELET COUNT 259 10^3/uL (130-400); RED CELL DISTRIBUTION WIDTH 18.2 % (10.0-14.5)
[2018-08-01 07:47] LABS: CALCIUM 9.2 MG/DL (8.5-10.1); CREATININE SERUM 1.14 MG/DL (0.60-1.30); POTASSIUM 4.2 MMOL/L (3.6-5.0)
[2018-08-01 08:17] VITALS: BP 141/64
[2018-08-01] MEDS: cefTRIAXone FOR IV USE 1,000 MG in WATER (STERILE) FOR INJECTION 10 ML IV SCH (08:45)
[2018-08-01] MEDS: SERTRALINE 50 MG (ZOLOFT) TABLET PO SCH ×2 (08:45→21:53)
[2018-08-01] MEDS: DILTIAZEM 240 MG (CARDIZEM CD) CAP PO SCH (08:45)
[2018-08-01] MEDS: PANTOPRAZOLE 40 MG (PROTONIX) TAB PO SCH (08:45)
--- NOTE | 2018-08-01 11:15 | NUR ---
Prior to AM medications BP 140/63 P69.
[2018-08-01] MEDS ORDERED: SENNA W/DOCUSATE (SENOKOT S) TABLET PO NR (13:00)
[2018-08-01] MEDS ORDERED: CALCIUM CARBONATE 500 MG (TUMS) TAB.CHEW PO PRN (13:00)
[2018-08-01] MEDS ORDERED: MILK OF MAGNESIA 400 MG/5 ML 30 ML UDC PO NR (13:00)
[2018-08-01] MEDS: ACETAMINOPHEN 325 MG TABLET PO PRN ×3 (13:11→22:40)
[2018-08-01] MEDS: ONDANSETRON 4 MG/2 ML (SDV) Z0FRAN IVP PRN ×3 (13:11→22:40)
--- NOTE | 2018-08-01 13:48 | Physical Therapy Evaluation ---
PT Evaluation-General Medical Diagnosis Admission Date Aug 01, 2018 at 12:55 Medical Diagnosis: anemia; UTI Onset Date: Jul 30, 2018 Therapy Diagnosis Therapy Diagnosis: weakness; abn gait Height/Weight Height (Feet): 5 Height (Inches): 6.00 Weight (Pounds): 176 Weight (Ounces): 4.0 Precautions Precautions/Isolations: Fall Prevention, Standard Precautions Referral Physician: Adelina Reason for Referral: Evaluation/Treatment Medical History Pertinent Medical History: Atrial Fib, DM Additional Medical History History of back surgery with residual B LE weakness and numbness > 30 years Current History Pt admitted with anemia and UTI Reviewed History: Yes Social History Home: Apartment Current Living Status: Alone Entry Into Home: Level Entry Prior/Core FIM Prior Level of Function Therapy Code Descriptions/Definitions Functional [place] Measure: 0=Not Assessed/NA 4=Minimal Assistance 1=Total Assistance 5=Supervision or Setup 2=Maximal Assistance 6=Modified [place] 3=Moderate Assistance 7=Complete Beaver Therapy Quality Codes: 6 Independent with activity with or without an assistive device 5 Patient requires set up or clean up by helper. Patient completes activity by themselves 4 Supervision or touching assist (CGA). [place] provide cues , steadying assist 3 The helper provides less than half the effort to complete the activity 2 The helper provides more than half the effort to complete the activity 1 Dependent. The helper does all the effort to complete an activity 7 Patient refused to complete or attempt activity 9 The patient did not perform the activity before the current illness or injury 88 Not attempted due to Medical conditions or safety concerns Functional Abilities and Goals: Independent: Patient completed the activities by him/herself, with or without an assistive device, with no assistance from a helper. Needed Some Help: Patient needed partial assistance from another person to complete activities. Dependent: A helper completed the activities for the patient. 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 Reports she feels nauseated today. Hoping to go home soon. Pt/Family Goals home alone and return to work Objective Patient Orientation: Person, Place, Time, Situation Problem Solving: Good ROM/Strength ROM Lower Extremities wFL Strength Lower Extremities B LE strength is grossly 3/5 throughout Integumentary/Posture Integumentary intact Bowel Incontinence: No Bladder Incontinence: No Posture thoracici kyphosis; head forward, stands without full hip extension. Neuromuscular (Tone, Coordination, Reflexes) diminished tone B LE with impaired coordination with intentional movement. Sensory Hearing: Functional Hand Dominance: Right Sensation Right Lower Extremit: Impaired Sensation Left Lower Extremity: Impaired Sensation Lower Extremities Pt reprots her B LE's have felt numb since her back surgery 30 years ago. Transfers Therapy Code Descriptions/Definitions Functional [place] Measure: 0=Not Assessed/NA 4=Minimal Assistance 1=Total Assistance 5=Supervision or Setup 2=Maximal Assistance 6=Modified [place] 3=Moderate Assistance 7=Complete [place] Transfers (B, C, W/C) (FIM): 6 Supine to/from Sit: 6 Sit to/from Stand: 6 Mod indep with all bed mobility and transfers. pt actually took herself to and from the bathroom using her cane while this therapist stepped out to get her a drink. Gait Mode of Locomotion: Walk Anticipated Mode of Locomotion: Walk Gait Assistive Device: FWW Comments/Gait Description Pt ambulated x 150 ft with FWW with SBA. Her gait is dyscoordinated with impaired proprioceptive awareness of foot placement and she tends to straddle the back leg of the walker with her left LE. Unsteady with gait but no odilon LOB and pt reports this is usual state of ambulation. Balance Sitting Static: Fair Sitting Dynamic: Fair Standing Static: Fair Standing Dynamic: Fair Special Test Comments impaired functional trunk control. Assessment/Needs Pt has not felt well and has not gotten out of bed much this date. ;She would beneift from skilled PT to encourage functional ambulateion to promote general well being and interaction within her environment and promote functional strength to allow her to return home and to work. 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 Half-Way Goals PT Dental Laboratory Technology Teacher Goals Time Frame: Aug 05, 2018 Transfers (B,C,W/C) (FIM): 7 Gait (FIM): 6 Gait distance (FIM): 3=150 ft PT Plan Problem List Problem List: Activity Tolerance, Functional Strength, Safety, Balance, Gait, Transfer Treatment/Plan Treatment Plan: Continue Plan of Care Treatment Plan: Bed Mobility, Education, Functional Activity Rafia, Functional Strength, Gait, Safety, Transfers Treatment Duration: Aug 05, 2018 Frequency: 6 times per week Estimated Hrs Per Day: .25 hour per day Patient and/or Family Agrees t: Yes Safety Risks/Education Patient Education: Transfer Techniques, Safety Issues Teaching Recipient: Patient Teaching Methods: Discussion Response to Teaching: Verbalize Understanding Time/GCodes Time In: 1320 Time Out: 1344 Total Billed Treatment Time: 24 Total Billed Treatment visit EVL 24 MAXIMINO TRACY PT Aug 01, 2018 13:48
[2018-08-01 16:43] VITALS: BP 126/61
[2018-08-01] MEDS: RIVAROXABAN 20 MG TABLET (XARELTO) PO SCH (16:49)
[2018-08-01] MEDS: PANTOPRAZOLE 40 MG (PROTONIX) VIAL IV SCH (21:53)
--- NOTE | 2018-08-01 21:54 | Progress Note (SOAP) ---
Subjective Date Seen by a Provider: Aug 01, 2018 Time Seen by a Provider: 12:40 Subjective/Events-last exam Fwup Acute on Chronic Anemia, History of atrial fibrillation, GERD, Hypertension , UTI. C/O nausea, constipation. Blood count dropped to 7.8 this morning. Objective Exam Vital Signs Date Time Temp Pulse Resp B/P (MAP) Pulse Ox O2 Delivery O2 Flow Rate FiO2 08/01/18 16:43 100.2 63 18 126/61 (82) 99 Room Air 08/01/18 13:00 62 08/01/18 08:17 99.8 69 18 141/64 (89) 100 Room Air 08/01/18 07:00 65 08/01/18 01:00 58 08/01/18 00:00 96.2 62 20 115/56 (75) 97 Room Air I & O 08/01/18 07:00 Intake Total 2300 ml Balance 2300 ml Capillary Refill : General Appearance: No Apparent Distress Neck: Supple Respiratory: Lungs Clear Cardiovascular: Regular Rate, Rhythm, Systolic Murmur Gastrointestinal: normal bowel sounds, non tender, soft Extremity: Non Tender, No Calf Tenderness, No Pedal Edema Neurologic/Psychiatric: Alert, Oriented x3 Skin: Warm/Dry, Pallor Results Lab Laboratory Tests 08/01/18 07:05: White Blood Count 9.0, Red Blood Count 3.18L, Hemoglobin 7.8L, Hematocrit 26L, Mean Corpuscular Volume 80, Mean Corpuscular Hemoglobin 25, Mean Corpuscular Hemoglobin Concent 31L, Red Cell Distribution Width 18.2H, Platelet Count 259, Mean Platelet Volume 10.3, Neutrophils (%) (Auto) 85H, Lymphocytes (%) (Auto) 8L , Monocytes (%) (Auto) 6, Eosinophils (%) (Auto) 1, Basophils (%) (Auto) 0, Neutrophils # (Auto) 7.6, Lymphocytes # (Auto) 0.7L, Monocytes # (Auto) 0.6, Eosinophils # (Auto) 0.1, Basophils # (Auto) 0.0, Sodium Level 139, Potassium Level 4.2, Chloride Level 111H, Carbon Dioxide Level 18L, Anion Gap 10, Blood Urea Nitrogen 28H, Creatinine 1.14, Estimat Glomerular Filtration Rate 48, BUN/ Creatinine Ratio 25, Glucose Level 89, Calcium Level 9.2 Assessment/Plan Assessment/Plan Assess & Plan/Chief Complaint 1. Acute on Chronic Anemia--H/H dropped slightly today so will recheck CBC in AM 2. History of atrial fibrillation--on rhythmol and cardizem, restarted xarelto 3. GERD--change to IV protonix 4. Hypertension--resume cardizem 5. Nausea/Dyspepsia--add zofran prn 6. UTI--on Rocephin 7. Constipation--Senokot s and MOM given Clinical Quality Measures Admission Status Admission Dx 1. Acute on Chronic Anemia--admit for blood transfusion 2. History of atrial fibrillation--restart rhythmol and cardizem, hold xarelto 3. GERD--start protonix 4. Hypertension--resume cardizem DVT/VTE Risk/Contraindication: Risk Factor Score Per Nursin RFS Level Per Nursing on Admit: 4+=Very High ANTHONY PERDOMO DO Aug 01, 2018 21:54
[2018-08-01 23:56] VITALS: BP 119/59
[2018-08-02] MEDS: PROPAFENONE 150 MG (RYTHMOL) TABLET PO SCH (05:47)
[2018-08-02] MEDS: CATHETER FLUSH 10 ML SYR IV SCH ×2 (05:47→09:13)
[2018-08-02 06:32] LABS: BASOPHILS % (AUTO) 0 % (0-10); EOSINOPHILS % (AUTO) 1 % (0-10); HEMATOCRIT 29 % (35-52); HEMOGLOBIN 8.5 G/DL (11.5-16.0); LYMPHOCYTES # (AUTO) 0.7 X 10^3 (1.0-4.0); LYMPHOCYTES % (AUTO) 10 % (12-44); MEAN CORPUSCULAR HEMOGLOBIN 24 PG (25-34); MEAN CORPUSCULAR HGB CONC 30 G/DL (32-36); MEAN CORPUSCULAR VOLUME 81 FL (80-99); MEAN PLATELET VOLUME 10.3 FL (7.4-10.4); MONOCYTES # (AUTO) 0.7 X 10^3 (0.0-1.0); MONOCYTES % (AUTO) 10 % (0-12); NEUTROPHILS # (AUTO) 5.4 X 10^3 (1.8-7.8); NEUTROPHILS % (AUTO) 79 % (42-75); PLATELET COUNT 232 10^3/uL (130-400); RED CELL DISTRIBUTION WIDTH 18.7 % (10.0-14.5); WHITE BLOOD COUNT 6.8 10^3/uL (4.3-11.0)
[2018-08-02 06:50] LABS: ALBUMIN 3.8 GM/DL (3.2-4.5); BILIRUBIN,TOTAL 0.5 MG/DL (0.1-1.0); CALCIUM 9.1 MG/DL (8.5-10.1); CREATININE SERUM 1.23 MG/DL (0.60-1.30); POTASSIUM 3.8 MMOL/L (3.6-5.0); TOTAL PROTEIN 6.5 GM/DL (6.4-8.2)
[2018-08-02 08:00] VITALS: BP 125/60
[2018-08-02] MEDS: PANTOPRAZOLE 40 MG (PROTONIX) VIAL IV SCH (09:11)
[2018-08-02] MEDS: cefTRIAXone FOR IV USE 1,000 MG in WATER (STERILE) FOR INJECTION 10 ML IV SCH (09:12)
[2018-08-02] MEDS: SERTRALINE 50 MG (ZOLOFT) TABLET PO SCH (09:12)
[2018-08-02] MEDS: DILTIAZEM 240 MG (CARDIZEM CD) CAP PO SCH (09:12)
[2018-08-02] MEDS ORDERED: ONDA4TAB10 PO (10:36)
--- NOTE | 2018-08-02 10:42 | Discharge Inst-Simple/Standard ---
Discharge Inst-Standard Discharge Medications New, Converted or Re-Newed RX: Transmitted to Pharmacy Patient Instructions/Follow Up Plan of Care/Instructions/FU: Fwup in 1 week Activity as Tolerated: Yes Discharge Diet: Cardiac Diet Other Inst to Patient CBC on 08/05/18 ANTHONY PERDOMO DO Aug 02, 2018 10:42
--- NOTE | 2018-08-02 10:57 | Discharge Summary ---
Diagnosis/Chief Complaint Date of Admission Aug 01, 2018 at 12:55 Date of Discharge Discharge Date: Aug 02, 2018 Discharge Diagnosis 1. Acute on Chronic Anemia--H/H stable post transfusion and venofer 2. History of atrial fibrillation--on rhythmol and cardizem, restarted xarelto 3. GERD--on protonix 4. Hypertension--stable 5. Nausea/Dyspepsia--zofran prn 6. UTI--treated with Rocephin 7. Constipation--resolved Reason Hospital Visit This is a 68 year old female with chronic anemia who is on chronic anticoagulation with xarelto who stated that she has been feeling more fatigued and short of air for the past few weeks. When she was having difficulty ambulating to her bathroom she went to the Urgent Care for evaluation. She was found to be anemic with a hemoglobin of 6.2 and the nurse practitioner called me for a direct admit. She denies any recent blood in her stools or change in the color of her stools. She further denies any abdominal pain. Discharge Summary Hospital Course Hospital Course This is a 68 year old female with chronic anemia who is on chronic anticoagulation with xarelto who stated that she has been feeling more fatigued and short of air for the past few weeks. When she was having difficulty ambulating to her bathroom she went to the Urgent Care for evaluation. She was found to be anemic with a hemoglobin of 6.2 and the nurse practitioner called me for a direct admit. She denies any recent blood in her stools or change in the color of her stools. She further denies any abdominal pain. She was admitted to the medical floor and transfused with 2 units of pRBCs. Her hemoglobin was up to 8.2 the second hospital day so she was given IV venofer and her xarelto was restarted. The following hospital day her hemoglobin dropped to 7.8 and she was having some nausea and constipation. It was felt like this may be from the venofer so her discharge was delayed and IV zofran prn was added and she was given senokot-S with MOM. By the day of discharge she was feeling better except for some mild nausea complaints and she was having loose stools. Her hemoglobin was up to 8.5 and it was decided she could be discharged home on a CM with iron and iron rich foods and recheck her H/H in 3 days. She was also treated with rocephin during her hospital stay for a UTI. She was taking in orals well prior to discharge per nursing and in fact was eating eggs, chavez and toast when I came in to discharge her. Labs Laboratory Tests 07/31/18 05:40: Red Blood Count 3.53L, Hemoglobin 8.5L, Hematocrit 28L, Mean Corpuscular Hemoglobin 24L, Mean Corpuscular Hemoglobin Concent 30L, Red Cell Distribution Width 17.5H, Chloride Level 109H, Carbon Dioxide Level 20L, Blood Urea Nitrogen 26H 08/01/18 07:05: Red Blood Count 3.18L, Hemoglobin 7.8L, Hematocrit 26L, Mean Corpuscular Hemoglobin Concent 31L, Red Cell Distribution Width 18.2H, Chloride Level 111H, Carbon Dioxide Level 18L, Blood Urea Nitrogen 28H, Neutrophils (%) (Auto) 85H, Lymphocytes (%) (Auto) 8L, Lymphocytes # (Auto) 0.7L 08/02/18 06:05: Red Blood Count 3.50L, Hemoglobin 8.5L, Hematocrit 29L, Mean Corpuscular Hemoglobin 24L, Mean Corpuscular Hemoglobin Concent 30L, Red Cell Distribution Width 18.7H, Chloride Level 109H, Carbon Dioxide Level 20L, Blood Urea Nitrogen 29H, Neutrophils (%) (Auto) 79H, Lymphocytes (%) (Auto) 10L, Lymphocytes # (Auto ) 0.7L, Aspartate Amino Transf (AST/SGOT) 35H Procedures None. Discharge Physical Examination Allergies: Coded Allergies: Beta-Blockers (Beta-Adrenergic Bloc (Unverified Allergy, Unknown, 11/20/12) atenolol (Verified Allergy, Unknown, 04/05/07) Vitals & I&Os Vital Signs Date Time Temp Pulse Resp B/P (MAP) Pulse Ox O2 Delivery O2 Flow Rate FiO2 08/02/18 08:00 98.5 67 18 125/60 (81) 98 Room Air General Appearance: Alert, Oriented X3, No Acute Distress Respiratory: Clear to Auscultation Cardiovascular: Regular Rate, Other (murmur) Abdominal: Normal Bowel Sounds, Soft, No Tenderness Psych/Mental Status: Mental Status NL, Mood NL Discharge Home Medications Reviewed and agree with Discharge Medication list on patient's Discharge Instruction sheet Instructions to Patient/Family Please see electronic discharge instructions given to patient. Clinical Quality Measures DVT/VTE Risk/Contraindication: Risk Factor Score Per Nursin RFS Level Per Nursing on Admit: 4+=Very High ANTHONY PERDOMO DO Aug 02, 2018 10:57
[2018-08-02 12:52] VITALS: BP 125/60
--- NOTE | 2018-08-05 18:34 | Physician Query-General Query ---
Physician Query-General Query to Physician: Can you please clarify if patient has a diagnosis of renal failure? If so, please document if chronic and if known, stage of CKD. H&P shows under history: Genitourinary Yes (RENAL INSUFFICIENCY) Kidney Infection, Bladder Infection, Renal Failure PHYSICIAN RESPONSE: Based on the clinical findings in the record, please respond to the query above on this document as an addendum. Possible, probable, or questionable diagnosis can be coded for INPATIENTS ONLY. Physician Response: Physician Response No renal failure If you have questions please contact: Executive Sales Manager: Ext: Thank you for your time and cooperation. Clinical Supervisor Electronics Inspection/Executive Sales Manager This is a permanent part of the medical record MANSOOR HOLLINGSWORTH Aug 05, 2018 18:34 ANTHONY PERDOMO DO Aug 09, 2018 12:34
== END 2018-08-02 12:55 | disposition home or self-care (01) | DRG 812 ==
LOC: UNDOADMOB 15:11 → 4TH 15:11 → INTOOBSV 08-01 12:55 → OBSVTOIN 08-01 12:55 → UNDODISIN 08-02 12:55
PROVIDERS: ADMIT Family Medicine; ATTEND Family Medicine
DX: D64.9 Anemia, unspecified (principal); N39.0 Urinary tract infection, site not specified; I48.91 Unspecified atrial fibrillation; K21.9 Gastro-esophageal reflux disease without esophagitis; I10 Essential (primary) hypertension; K59.00 Constipation, unspecified; R73.03 Prediabetes; F41.9 Anxiety disorder, unspecified; Z85.830 Personal history of malignant neoplasm of bone; Z92.3 Personal history of irradiation; Z92.21 Personal history of antineoplastic chemotherapy; Z79.01 Long term (current) use of anticoagulants
CPT/HCPCS: 36415; 80048; 80053; 85025; 86850; 86900; 86901; 86920; G0378

== ENCOUNTER 2018-08-03 14:22 | Emergency (ER) | payer MEDICARE ==
[~2018-08-03] VITALS: Ht 167.6 cm; Wt 79.8 kg
[~2018-08-03 14:22] MED LIST changes: +DOCU-143 PO; +LISI10TA2 PO; +MULT-17 PO; +ONDA4TAB10 PO; +SERT50TA9 PO
[2018-08-03] MEDS ORDERED: NS IV 1000 ML 1,000 ML IV ONE (14:46)
[2018-08-03 15:00] LABS: BASOPHILS % (AUTO) 1 % (0-10); EOSINOPHILS # (AUTO) 0.1 10^3/uL (0.0-0.3); EOSINOPHILS % (AUTO) 2 % (0-10); HEMATOCRIT 30 % (35-52); LYMPHOCYTES # (AUTO) 1.7 X 10^3 (1.0-4.0); LYMPHOCYTES % (AUTO) 30 % (12-44); MEAN CORPUSCULAR HEMOGLOBIN 24 PG (25-34); MEAN CORPUSCULAR HGB CONC 30 G/DL (32-36); MEAN CORPUSCULAR VOLUME 82 FL (80-99); MEAN PLATELET VOLUME 10.3 FL (7.4-10.4); MONOCYTES # (AUTO) 0.8 X 10^3 (0.0-1.0); MONOCYTES % (AUTO) 13 % (0-12); NEUTROPHILS # (AUTO) 3.1 X 10^3 (1.8-7.8); NEUTROPHILS % (AUTO) 54 % (42-75); PLATELET COUNT 308 10^3/uL (130-400); WHITE BLOOD COUNT 5.8 10^3/uL (4.3-11.0)
[2018-08-03] MEDS ORDERED: DILTIAZEM INJECTION 125 MG in NS (IVPB) 100 ML IV SCH (15:00)
[2018-08-03 15:12] LABS: BILIRUBIN,TOTAL 0.4 MG/DL (0.1-1.0); CALCIUM 9.5 MG/DL (8.5-10.1); CREATININE SERUM 1.19 MG/DL (0.60-1.30); MAGNESIUM 2.1 MG/DL (1.8-2.4); POTASSIUM 3.8 MMOL/L (3.6-5.0); TOTAL PROTEIN 7.1 GM/DL (6.4-8.2)
[2018-08-03] MEDS ORDERED: NS IV 500 ML 500 ML ONE (16:16)
[2018-08-03] MEDS ORDERED: NS IV 500 ML 500 ML IV ONE (16:18)
--- NOTE | 2018-08-03 17:06 | ED Cardiac General ---
History of Present Illness General Chief Complaint: Cardiac/General Problems Stated Complaint: STATES HAVING A FIB EVENT Nursing Triage Note: PT PRESENTS TO ER WITH COMPLAINT OF PALPITATIONS. PT HAS HX OF A FIB. PT WAS D/ C YESTERDAY FROM HOSPITAL. Source: patient Exam Limitations: no limitations History of Present Illness Date Seen by Provider: Aug 03, 2018 Time Seen by Provider: 14:45 Initial Comments This 68-year-old woman presents to the emergency room with complaints of palpitations and tachycardia that started today. She was dismissed from the hospital yesterday after being treated for anemia and receiving transfusion. She does have a history of paroxysmal atrial fibrillation. She is anticoagulated. She took her anti-arrhythmics this morning. Patient was noted to have some hypotension associated with the A. fib RVR noted on her monitor. IV fluids were promptly ordered. Allergies and Home Medications Allergies Coded Allergies: Beta-Blockers (Beta-Adrenergic Bloc (Unverified Allergy, Unknown, 11/20/12) atenolol (Verified Allergy, Unknown, 04/05/07) Home Medications Acetaminophen 500 Mg Tablet, 1,000 MG PO TID, (Reported) TAKES 2 (500MG) TABLETS Cholecalciferol (Vitamin D3) 1,000 Unit Capsule, 1,000 UNIT PO DAILY, (Reported) Diltiazem HCl 240 Mg Cap.er.24h, 240 MG PO HS, (Reported) Docusate Sodium 100 Mg Capsule, 100 MG PO BID, (Reported) Fluticasone Propionate 16 Gm [place].susp, 2 SPRAYS NS DAILY PRN for ALLERGIES, ( Reported) Losartan Potassium 50 Mg Tablet, 50 MG PO HS, (Reported) Multivitamins with Iron 1 Each Tab.chew, 1 EACH PO DAILY Prescribed by: ANTHONY PERDOMO on 07/31/18 1854 Ondansetron HCl 4 Mg Tablet, 4 MG PO Q4H Prescribed by: ANTHONY PERDOMO on 08/02/18 1036 Pantoprazole Sodium 40 Mg Tablet.dr, 40 MG PO DAILY PRN for INDIGESTION, ( Reported) Propafenone HCl 225 Mg Cap, 225 MG PO 0800,1500,2100, (Reported) Rivaroxaban 20 Mg Tablet, 20 MG PO HS, (Reported) Sertraline HCl 50 Mg Tablet, 25 MG PO BID, (Reported) TAKES 1/2 (50MG) TABLET Patient Home Medication List Home Medication List Reviewed: Yes Review of Systems Review of Systems Constitutional: no symptoms reported EENTM: No Symptoms Reported Respiratory: No Symptoms Reported Cardiovascular: See HPI Gastrointestinal: No Symptoms Reported Genitourinary: No Symptoms Reported Musculoskeletal: no symptoms reported Skin: no symptoms reported Psychiatric/Neurological: No Symptoms Reported Endocrine: No Symptoms Reported Hematologic/Lymphatic: See HPI Past Qqmmnnj-Cvckwy-Skyeky Hx Patient Social History Alcohol Use: Denies Use Number of Drinks Today: Alcohol Beverage of Choice: Wine Recreational Drug Use: No Smoking Status: Never a Smoker 2nd Hand Smoke Exposure: No Recent Foreign Travel: No Contact w/Someone Who Travel: No Recent Infectious Disease Expo: No Recent Hopitalizations: Yes (D/C 08/02/18) Immunizations Up To Date Tetanus Booster (TDap): Unknown PED Vaccines UTD: No Date of Pneumonia Vaccine: Mar 11, 2011 Date of Influenza Vaccine: May 04, 2018 Seasonal Allergies Seasonal Allergies: Yes Past Medical History Surgeries: Yes Abdominal, Appendectomy, Section, Gallbladder, 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, Neurological, Oophorectomy Respiratory: No Currently Using CPAP: No Currently Using BIPAP: No Cardiac: Yes (RBBB) Atrial Fibrillation (Paroxysmal), Heart Murmur, Hypertension, Valvular Heart Disease Neurological: Yes Headaches /Migraines, Neuropathy 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 Disorders: Yes (CERVICAL DYSPLASIA) Female 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 Disorders: Denies 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 Sexually Transmitted Disease: No HIV/AIDS: No Genitourinary: Yes (RENAL INSUFFICIENCY) Kidney Infection, Bladder Infection, Renal Failure Gastrointestinal: Yes Gastroesophageal Reflux, Gastrointestinal Bleed, Chronic Constipation, Hiatal Hernia, Gall Bladder Disease Musculoskeletal: Yes (KNEES, BACK, HIPS) Arthritis, Chronic Back Pain Endocrine: Yes (Pre Diabetic) Diabetes, Non-Insulin dep HEENT: No Loss of Vision: Denies Hearing Impairment: Denies Cancer: Yes Bone Did You Recieve Any Treatments: Yes What Type of Treatment Did You: Chemotherapy, Radiation, Surgical Intervention Psychosocial: Yes Anxiety Integumentary: No Blood Disorders: Yes (ANEMIA) Adverse Reaction/Blood Tranf: No Family Medical History Arthritis 19 MOTHER, Onset:30's - 40 (RA) Cardiovascular disease 19 MOTHER, Onset:40's - 50 Completed stroke 19 MOTHER, Onset:60 years & older Headache disorder 19 FATHER, Onset:Unknown (severe sinus headaches) Hypertension 19 MOTHER, Onset:50's - 60 Myocardial infarction 19 MOTHER, Onset:60 years & older Psychosocial problem 19 FATHER, Onset:Unknown No Family History of: AIDS Abdominal aortic aneurysm [place]'s disease Alcoholism Alzheimer's disease Aphasia Asthma Cancer of mouth Cataracts Colon cancer Congenital disease Congenital heart disease Coronary thrombosis Cystic fibrosis Deafness or hearing loss Dementia Diabetes mellitus Drug abuse Dysphasia Fibrocystic disease of breast Gastroenteritis Glaucoma Hypercholesterolemia Infertility Kidney disease Neoplasm Not obtainable due to adoption Osteoporosis Parkinson's disease Prostate cancer Respiratory disorder Seizure disorder Severe allergy Thyroid disease Tuberculosis Visual disorder Heart Disease Physical Exam Vital Signs Vital Signs - First Documented 08/03/18 14:27 Temp 97.5 Pulse 126 Resp 13 B/P (MAP) 107/86 (93) Pulse Ox 98 O2 Delivery Room Air Capillary Refill : Less Than 3 Seconds Height, Weight, BMI Height: 5'6.00" Weight: 176lbs. 4.0oz. 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 Norm as Tested Skin: Normal Color, Warm/Dry Progress/Results/Core Measures Results/Orders Lab Results Laboratory Tests Test 08/03/18 14:38 Range/Units White Blood Count 5.8 4.3-11.0 10^3/uL Red Blood Count 3.68 L 4.35-5.85 10^6/uL Hemoglobin 9.0 L 11.5-16.0 G/DL Hematocrit 30 L 35-52 % Mean Corpuscular Volume 82 80-99 FL Mean Corpuscular Hemoglobin 24 L 25-34 PG Mean Corpuscular Hemoglobin Concent 30 L 32-36 G/DL Red Cell Distribution Width 20.0 H 10.0-14.5 % Platelet Count 308 130-400 10^3/uL Mean Platelet Volume 10.3 7.4-10.4 FL Neutrophils (%) (Auto) 54 42-75 % Lymphocytes (%) (Auto) 30 12-44 % Monocytes (%) (Auto) 13 H 0-12 % Eosinophils (%) (Auto) 2 0-10 % Basophils (%) (Auto) 1 0-10 % Neutrophils # (Auto) 3.1 1.8-7.8 X 10^3 Lymphocytes # (Auto) 1.7 1.0-4.0 X 10^3 Monocytes # (Auto) 0.8 0.0-1.0 X 10^3 Eosinophils # (Auto) 0.1 0.0-0.3 10^3/uL Basophils # (Auto) 0.0 0.0-0.1 10^3/uL Sodium Level 140 135-145 MMOL/L Potassium Level 3.8 3.6-5.0 MMOL/L Chloride Level 109 H 98-107 MMOL/L Carbon Dioxide Level 18 L 21-32 MMOL/L Anion Gap 13 5-14 MMOL/L Blood Urea Nitrogen 26 H 7-18 MG/DL Creatinine 1.19 0.60-1.30 MG/DL Estimat Glomerular Filtration Rate 45 BUN/Creatinine Ratio 22 Glucose Level 97 70-105 MG/DL Calcium Level 9.5 8.5-10.1 MG/DL Corrected Calcium 9.5 8.5-10.1 MG/DL Magnesium Level 2.1 1.8-2.4 MG/DL Total Bilirubin 0.4 0.1-1.0 MG/DL Aspartate Amino Transf (AST/SGOT) 32 5-34 U/L Alanine Aminotransferase (ALT/SGPT) 35 0-55 U/L Alkaline Phosphatase 74 40-136 U/L Total Protein 7.1 6.4-8.2 GM/DL Albumin 4.0 3.2-4.5 GM/DL TSH [place] Testing 1.23 0.35-4.94 UIU/ML My Orders Orders - BABAK PINEDO MD Saline Lock/Iv-Start (08/03/18 14:46) Ns Iv 1000 Ml (Sodium Chloride 0.9%) (08/03/18 14:46) Ns (Ivpb) (Sodium C... W/Diltiazem Injec (08/03/18 15:00) Cbc With Automated Diff (08/03/18 14:49) Comprehensive Metabolic Panel (08/03/18 14:49) Magnesium (08/03/18 14:49) Ekg Tracing (08/03/18 14:49) Monitor-Rhythm Ecg Trace Only (08/03/18 14:49) Saline Lock/Iv-Start (08/03/18 16:18) Ns Iv 500 Ml (Sodium Chloride 0.9%) (08/03/18 16:18) Ns Iv 500 Ml (Sodium Chloride 0.9%) (08/03/18 16:16) Ekg Tracing (08/03/18 16:40) Thyroid Analyzer (08/03/18 16:52) Medications Given in ED Current Medications Medications Dose Ordered Sig/Larry Route Start Time Stop Time Status Last Admin Dose Admin Sodium Chloride 500 ml @ 0 mls/hr Q0M ONCE IV 08/03/18 16:18 08/03/18 16:19 DC 08/03/18 16:25 500 MLS/HR Sodium Chloride 1,000 ml @ 0 mls/hr Q0M ONCE IV 08/03/18 14:46 08/03/18 14:47 DC 08/03/18 14:55 1,000 MLS/HR Vital Signs/I&O 08/03/18 08/03/18 14:27 17:27 Temp 97.5 Pulse 126 71 Resp 13 13 B/P (MAP) 107/86 (93) 117/56 (76) Pulse Ox 98 99 O2 Delivery Room Air Room Air Blood Pressure Mean: 93 Progress Progress Note : Time: 17:03 Progress Note Patient's blood pressure was resuscitated with IV fluids. She received a total of 1500 mL of normal saline. She was started on a Cardizem drip for rhythm control. She did eventually convert to sinus rhythm. Case was discussed with Dr. Martinez who did not think altering or adding to her medications was necessary at this time. Patient was advised to follow-up with Dr. Mcfarland first thing on Sunday. EKG #1: EKG Time: 14:53 Rate: 144 Rhythm: A Fib/Flutter Intervals Right bundle branch block Comment Atrial fibrillation with RVR. No ST elevation or depression. Right bundle branch block. EKG #2: EKG Time: 16:39 Rate: 71 Rhythm: Normal Sinus Intervals: Normal ECG Impression: Normal Comment Normal sinus rhythm with no ST elevation or depression. No axis deviation. Incomplete right bundle branch block by automated read. Departure Impression Primary Impression: Paroxysmal atrial fibrillation with rapid ventricular response Disposition: 01 HOME, SELF-CARE Condition: Improved Departure-Patient Inst. Decision time for Depature: 17:03 Referrals: ANTHONY PERDOMO DO (PCP/Family) Primary Care Physician Patient Instructions: Atrial Fibrillation (DC) Add. Discharge Instructions: Continue with your current medications as previously prescribed. Follow-up with Dr. Mcfarland on Sunday morning. Return to care if you have sustained tachycardia again or develop other symptoms. All discharge instructions reviewed with patient and/or family. Voiced understanding. Copy Copies To 1: DAMON MCFARLAND MD Copies To 2: ANTHONY PERDOMO JOSHUA T MD Aug 03, 2018 17:06
[2018-08-03 17:27] VITALS: BP 117/56
== END 2018-08-03 17:27 | disposition home or self-care (01) ==
LOC: EDUNIT# 14:22 → ER 14:23
DX: I48.0 Paroxysmal atrial fibrillation (principal); I10 Essential (primary) hypertension; G43.909 Migraine, unspecified, not intractable, without status migrainosus; K21.9 Gastro-esophageal reflux disease without esophagitis; E11.9 Type 2 diabetes mellitus without complications; F41.9 Anxiety disorder, unspecified; D64.9 Anemia, unspecified; Z82.49 Family history of ischemic heart disease and other diseases of the circulatory system; Z92.21 Personal history of antineoplastic chemotherapy; Z85.830 Personal history of malignant neoplasm of bone; Z87.19 Personal history of other diseases of the digestive system; Z87.448 Personal history of other diseases of urinary system; Z88.8 Allergy status to other drugs, medicaments and biological substances; Z79.51 Long term (current) use of inhaled steroids; Z79.01 Long term (current) use of anticoagulants; Z98.890 Other specified postprocedural states; Z90.49 Acquired absence of other specified parts of digestive tract; Z90.710 Acquired absence of both cervix and uterus
CPT/HCPCS: 36415; 80053; 83735; 84443; 85025; 93005; 93041

== ENCOUNTER 2018-08-11 18:05 | Emergency (ER) | payer MEDICARE ==
[~2018-08-11] VITALS: Ht 167.6 cm; Wt 81.6 kg
--- OUTSIDE RECORDS SUMMARY | 2018-08-11 18:46 | XMS REPORT | Clinical Summary ---
Author Author [facility] Organization [facility] Address Unknown Phone Unavailable Care Team Providers Care Engineering Technical Specialist Name Role Phone Amanda Ruffin MD Unavailable Bean Carrera MD Unavailable Anselmo Alex APRN Unavailable Unavailable Joyce Sahu MD PCP Matt York MD Unavailable Unavailable Source Comments Some departments are not documenting in the electronic medical record. If you do not see the information that you expected, contact Release of Information in the Health Information Management department at [phone] for further assistance in locating additional records.[facility] Allergies Comments Active Allergy Reactions Severity [...] (1 of 2 - PCV13) INFLUENZA VACCINE 01/09/2019 03/05/2009, 04/09/2008, 04/01/2007 Results Not on filefrom Last 3 Months Insurance Payer Benefit Subscriber ID Type Phone Address Plan / Group HU[employer] MEDICARE HUMANA xxxxxxxxx Medicare CHOICE PPO Advance Directives Patient has advance care planning documents on file. For more information, please contact: [facility] [address] [place] [address]
--- OUTSIDE RECORDS SUMMARY | 2018-08-11 18:53 | XMS REPORT | Continuity of Care Document ---
Author Author [facility] Address Unknown Phone Unavailable Allergies Active Description Code Type Severity Reaction Onset Reported/Identified Relationship to Patient Clinical Status Yes atenolol [id number] Drug Allergy Unknown N/A 04/05/2007 Yes Beta-Blockers (Beta-Adrenergic Bloc [id number] Drug Allergy Unknown N/A 05/2013 Yes atenolol [...] BABAK PINEDO MD Ot 784.0 HEADACHE 10/24/2012 BAABK PINEDO MD Ot 787.02 NAUSEA ALONE 10/24/2012 [...] Ot 719.46 JOINT PAIN-L/LEG 11/13/2014 MARGO JOHNSON SURGEON PARTNER Ot 844.9 SPRAIN OF KNEE LEG NOS 11/13/2014 MARGO JOHNSON SURGEON PARTNER Ot E000.8 OTHER EXTERNAL CAUSE STATUS 11/13/2014 MARGO JOHNSON SURGEON PARTNER Ot E888.9 FALL NOS 05/10/2015 KHRIS BRADEN, [...] NORMALLY 05/10/2015 BABAK PINEDO MD Ot 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 05/10/2015 BABAK PINEDO [...] S Ot I25.10 ATHSCL HEART DISEASE OF [place] CORONARY 11/05/2015 JOYCE SAHU DO S Ot [...] 11/05/2015 JOYCE SAHU DO S Ot Y84.8 [facility] MEDICAL PROCEDURES CAUSE ABN REACT/C 11/05/2015 JOYCE SAHU DO S Ot 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 11/05/2015 JOYCE SAHU [...] S Ot I25.10 ATHSCL HEART DISEASE OF [place] CORONARY 11/05/2015 EDIVNMORE PLATT JOYCE S Ot I48.0 PAROXYSMAL ATRIAL [...] REACT/C 11/05/2015 EDVINMORE JOYCE PLATT Ot 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 11/05/2015 EDVINMORE PLATTJOYCE [...] DO Ot I25.10 ATHSCL HEART DISEASE OF [place] CORONARY 11/06/2015 JOYCE SAHU DO Ot I48.0 [...] GLUCOSE 11/06/2015 JOYCE SAHU DO Ot Y84.8 [facility] MEDICAL PROCEDURES CAUSE ABN REACT/C 11/06/2015 CONOR PLATT JOYCE Ricci Ot 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 11/06/2015 CONOR PLATT [...] Molina Ot K92.2 GASTROINTESTINAL HEMORRHAGE, UNSPECIFIED 11/16/2015 KIOK BRADEN, BEST Molina Ot D64.9 ANEMIA, UNSPECIFIED 11/16/2015 KIKO BRADEN, BEST M Ot K44.9 DIAPHRAGMATIC HERNIA WITHOUT OBSTRUCTION 11/16/2015 KIKO BRADEN, BEST M Ot K92.2 GASTROINTESTINAL HEMORRHAGE, UNSPECIFIED 11/16/2015 KIKO BRADEN, BEST M Ot NONE 11/16/2015 KIKO BRADEN, BEST M Ot XX 12/03/2015 KIKO BRADEN, BETS M Ot D64.9 ANEMIA, UNSPECIFIED 12/03/2015 KIKO BRADEN, BEST M Ot K44.9 DIAPHRAGMATIC HERNIA WITHOUT OBSTRUCTION 12/03/2015 KIKO BRADEN, BEST M Ot K92.2 GASTROINTESTINAL HEMORRHAGE, UNSPECIFIED 12/26/2015 ORENDER DO, JOYCE S Ot F41.9 ANXIETY DISORDER, UNSPECIFIED 12/26/2015 ORENDER DO, JOYCE S Ot I10 ESSENTIAL (PRIMARY) HYPERTENSION 12/26/2015 ORENDER DO, JOYCE S Ot I25.10 ATHSCL HEART DISEASE OF [place] CORONARY 12/26/2015 ORENDER DO, JOYCE S Ot [...] S Ot I25.10 ATHSCL HEART DISEASE OF [place] CORONARY 12/26/2015 ORENDER DO, JOYCE S Ot [...] DIABETES MELLITUS WITHOUT COMPLIC 12/08/2016 MARGO JOHNSON SURGEON PARTNER Ot I10 ESSENTIAL (PRIMARY) HYPERTENSION 12/08/2016 MARGO JOHNSON SURGEON PARTNER Ot I48.91 UNSPECIFIED ATRIAL FIBRILLATION 12/08/2016 MARGO JOHNSON SURGEON PARTNER Ot K21.9 GASTRO-ESOPHAGEAL REFLUX DISEASE WITHOUT 12/08/2016 MARGO JOHNSON SURGEON PARTNER Ot K59.00 CONSTIPATION, UNSPECIFIED 12/08/2016 MARGO JOHNSON SURGEON PARTNER Ot Z79.899 OTHER SNF (CURRENT) DRUG THERAPY 03/11/2017 BABAK PINEDO MD [...] COLLAPSE 2017 HEATHER LUKE MD Ot Z79.01 SNF (CURRENT) USE OF 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 2017 HEATHER LUKE [...] MD Ot K92.2 GASTROINTESTINAL HEMORRHAGE, UNSPECIFIED 03/14/2017 EHATHER LUKE MD Ot N39.0 URINARY TRACT INFECTION, SITE NOT SPECIF 03/14/2017 HEATHER LUKE MD Ot R55 SYNCOPE AND COLLAPSE 03/14/2017 HEATHER LUKE MD Ot 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 03/14/2017 HEATHER LUKE [...] COLLAPSE 03/18/2017 HEATHER LUKE MD Ot 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 03/18/2017 HEATHER LUKE [...] 03/31/2017 OLAMIDE HAN DOA Ron Ot 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 03/31/2017 OLAMIDE HAN [...] GIDDINESS 04/03/2017 GUILLE OLAMIDEA K Ot 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 04/03/2017 GUILLE OLAMIDEA [...] K Ot I48.91 UNSPECIFIED ATRIAL FIBRILLATION 04/09/2017 MAREI HAN DO Ot K21.9 GASTRO-ESOPHAGEAL REFLUX DISEASE WITHOUT 04/09/2017 MARIE HAN DO Ot K59.00 CONSTIPATION, UNSPECIFIED 04/09/2017 MARIE HAN DO Ot R42 DIZZINESS AND GIDDINESS 04/09/2017 GUILLE PLATT MARIE Velasquez Ot 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 04/09/2017 GUILLE PLATT [...] R07.89 OTHER CHEST PAIN 07/04/2017 DEMOND BRADEN, HJ Ricci Ot D64.9 ANEMIA, UNSPECIFIED 07/04/2017 DEMOND [...] Ot I48.0 PAROXYSMAL ATRIAL FIBRILLATION 08/07/2017 DAMON CLAUIDO MD Ot K92.2 GASTROINTESTINAL HEMORRHAGE, UNSPECIFIED 08/07/2017 [...] WITHOUT 09/13/2017 BABAK PINEDO MD, Ot 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 09/13/2017 BABAK PINEDO MD, Ot Z79.51 SNF (CURRENT) USE OF INHALED STERO 09/13/2017 BABAK [...] WITHOUT 09/17/2017 BABAK PINEDO MD, Ot Z79.01 SNF (CURRENT) USE OF 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 09/17/2017 BABAK PINEDO MD, Ot Z79.51 SNF (CURRENT) USE OF INHALED STERO 09/17/2017 BABAK [...] WITHOUT 09/19/2017 BABAK PINEDO MD, Ot Z79.01 SNF (CURRENT) USE OF 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 09/19/2017 BABAK PINEDO MD, Ot Z79.51 SNF (CURRENT) USE OF INHALED STERO 09/19/2017 BABAK [...] R11.0 NAUSEA 04/08/2018 BERNOT, JOSE Ot 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 04/08/2018 BERNOT, JOSE Ot Z79.51 SNF (CURRENT) USE OF INHALED STERO 04/08/2018 BERNOT, [...] R11.0 NAUSEA 04/10/2018 BERNOT, JOSE Ot 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 04/10/2018 BERNOT, JOSE Ot Z79.51 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 INSURANCE HEARING OFFICER (CURRENT) USE OF INHALED STERO 04/10/2018 BERNOT, [...] I 05/04/2018 ESTELLA MARSHALL DOI Ot 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 05/04/2018 MARSHALL ESTELLA PLATTI Ot Z82.49 FAMILY HX OF ISCHEM HEART DIS AND OTH DI 05/04/2018 JOANNA DO YURI Ot Z85.830 PERSONAL HISTORY OF MALIGNANT NEOPLASM O 05/04/2018 JOANNA PLATT YURI Ot Z87.39 PERSONAL HISTORY OF DISEASES OF THE MS S 05/04/2018 MARSHALL DO YURI Ot Z92.21 PERSONAL HISTORY OF ANTINEOPLASTIC CHEMO 05/04/2018 MARSHALLINGA PLATT YURI Ot Z92.3 PERSONAL HISTORY OF IRRADIATION 06/07/2018 EDVINNDER RIGO PLATTJOYCE S Ot R11.0 NAUSEA 06/07/2018 EDVINNDYONNY DO JOYCE S Ot R19.7 DIARRHEA, UNSPECIFIED 08/02/2018 EDVINNDER DO JOYCE S Ot D64.9 ANEMIA, UNSPECIFIED 08/02/2018 EDVINNDER DORIGOJOYCE S Ot F41.9 ANXIETY DISORDER, UNSPECIFIED 08/02/2018 EDVINNDER DO JOYCE S Ot I10 ESSENTIAL (PRIMARY) HYPERTENSION 08/02/2018 EDVINNDER DO, JOYCE S Ot I48.91 UNSPECIFIED ATRIAL FIBRILLATION 08/02/2018 EDVINNDER DO JOYCE S Ot K21.9 GASTRO-ESOPHAGEAL REFLUX DISEASE WITHOUT 08/02/2018 EDVINNDER DO JOYCE S Ot K59.00 CONSTIPATION, UNSPECIFIED 08/02/2018 EDVINNDER DO JOYCE S Ot N39.0 URINARY TRACT INFECTION, SITE NOT SPECIF 08/02/2018 EDVINNDYONNY PLATT JOYCE S Ot R73.03 PREDIABETES 08/02/2018 EDVINNDER DO JOYCE S Ot 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 08/02/2018 EDVINNDYONNY DO JOYCE S Ot Z85.830 PERSONAL HISTORY OF MALIGNANT NEOPLASM O 08/02/2018 EDVINNDER RIGO PLATTJOYCE S Ot Z92.21 PERSONAL HISTORY OF ANTINEOPLASTIC CHEMO 08/02/2018 BRAVO SAHU DOLINE S Ot Z92.3 PERSONAL HISTORY OF IRRADIATION 08/03/2018 KHRIS BRADEN, BABAK Taylor Ot D64.9 ANEMIA, UNSPECIFIED 08/03/2018 BABAK PINEDO MD, Ot E11.9 TYPE 2 DIABETES MELLITUS WITHOUT COMPLIC 08/03/2018 BABAK PINEDO MD, Ot F41.9 ANXIETY DISORDER, UNSPECIFIED 08/03/2018 BABAK PINEDO MD, Ot G43.909 MIGRAINE, UNSP, NOT INTRACTABLE, WITHOUT 08/03/2018 BABAK PINEDO MD, Ot I10 ESSENTIAL (PRIMARY) HYPERTENSION 08/03/2018 BABAK PINEDO MD, Ot I48.0 PAROXYSMAL ATRIAL FIBRILLATION 08/03/2018 BABAK PINEDO MD, Ot K21.9 GASTRO-ESOPHAGEAL REFLUX DISEASE WITHOUT 08/03/2018 BABAK PINEDO MD, Ot R00.2 PALPITATIONS 08/03/2018 BABAK PINEDO MD, Ot Z79.01 SNF (CURRENT) USE OF 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 08/03/2018 BABAK PINEDO MD, Ot Z79.51 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 INSURANCE HEARING OFFICER (CURRENT) USE OF INHALED STERO 08/03/2018 BABAK PINEDO MD, Ot Z82.49 FAMILY HX OF ISCHEM HEART DIS AND OTH DI 08/03/2018 BABAK PINEDO MD, Ot Z85.830 PERSONAL HISTORY OF MALIGNANT NEOPLASM O 08/03/2018 BABAK PINEDO MD, Ot Z87.19 PERSONAL HISTORY OF OTHER DISEASES OF TH 08/03/2018 BABAK PINEDO MD, Ot Z87.448 PERSONAL HISTORY OF OTHER DISEASES OF UR 08/03/2018 BABAK PINEDO MD, Ot Z88.8 ALLERGY STATUS TO OT DRUG/MEDS/BIOL SUB 08/03/2018 BABAK PINEDO MD, Ot Z90.49 ACQUIRED ABSENCE OF OTHER SPECIFIED PART 08/03/2018 BABAK PINEDO MD, Ot Z90.710 ACQUIRED ABSENCE OF BOTH CERVIX AND UTER 08/03/2018 BABAK PINEDO MD, Ot Z92.21 PERSONAL HISTORY OF ANTINEOPLASTIC CHEMO 08/03/2018 BABAK PINEDO MD, Ot Z98.890 OTHER SPECIFIED POSTPROCEDURAL STATES 08/05/2018 JOYCE SAHU DO S Ot R11.0 NAUSEA 08/05/2018 CONOR PLATT JOYCE S Ot R19.7 DIARRHEA, UNSPECIFIED 08/06/2018 ORENDER DO, JOYCE S Ot R11.0 NAUSEA 08/06/2018 ORENDER DO, JOYCE S Ot R19.7 DIARRHEA, UNSPECIFIED 08/07/2018 ORENDER DO, JOYCE S Ot D53.9 NUTRITIONAL ANEMIA, UNSPECIFIED 08/07/2018 ORENDER DO, JOYCE S Ot D64.9 ANEMIA, UNSPECIFIED 08/07/2018 ORENDER DO, JOYCE S Ot F41.9 ANXIETY DISORDER, UNSPECIFIED 08/07/2018 ORENDER DO, JOYCE S Ot I10 ESSENTIAL (PRIMARY) HYPERTENSION 08/07/2018 ORENDER DO, JOYCE S Ot I48.91 UNSPECIFIED ATRIAL FIBRILLATION 08/07/2018 EDVINNDER DO, JOYCE S Ot K21.9 GASTRO-ESOPHAGEAL REFLUX DISEASE WITHOUT 08/07/2018 EDVINNDER DO JOYCE S Ot K59.00 CONSTIPATION, UNSPECIFIED 08/07/2018 ORENDER DO JOYCE S Ot N39.0 URINARY TRACT INFECTION, SITE NOT SPECIF 08/07/2018 EDVINNDER DO JOYCE S Ot R73.03 PREDIABETES 08/07/2018 EDVINNDER DO JOYCE S Ot Z79.01 SNF (CURRENT) USE OF 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 08/07/2018 EDVINNDER JOYCE S Ot Z85.830 PERSONAL HISTORY OF MALIGNANT NEOPLASM O 08/07/2018 EDVINNDER RIGOJOYCE S Ot Z92.21 PERSONAL HISTORY OF ANTINEOPLASTIC CHEMO 08/07/2018 EDVINNDER RIGOJOYCE S Ot Z92.3 PERSONAL HISTORY OF IRRADIATION 08/07/2018 EDVINNDER DO, JOYCE S Ot D53.9 NUTRITIONAL ANEMIA, UNSPECIFIED 08/07/2018 ORENDER DO, JOYCE S Ot D64.9 ANEMIA, UNSPECIFIED 08/07/2018 ORENDER DO, JOYCE S Ot F41.9 ANXIETY DISORDER, UNSPECIFIED 08/07/2018 ORENDER DO, JOYCE S Ot I10 ESSENTIAL (PRIMARY) HYPERTENSION 08/07/2018 ORENDER DO, JOYCE S Ot I48.91 UNSPECIFIED ATRIAL FIBRILLATION 08/07/2018 ORENDER DO, JOYCE S Ot K21.9 GASTRO-ESOPHAGEAL REFLUX DISEASE WITHOUT 08/07/2018 JOYCE SAHU DO Ot K59.00 CONSTIPATION, UNSPECIFIED 08/07/2018 JOYCE SAHU DO Ot N39.0 URINARY TRACT INFECTION, SITE NOT SPECIF 08/07/2018 JOYCE SAHU DO Ot R73.03 PREDIABETES 08/07/2018 JOYCE SAHU DO Ot Z79.01 SNF (CURRENT) USE OF 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 08/07/2018 JOYCE SAHU DO Ot Z85.830 PERSONAL HISTORY OF MALIGNANT NEOPLASM O 08/07/2018 JOYCE SAHU DO Ot Z92.21 PERSONAL HISTORY OF ANTINEOPLASTIC CHEMO 08/07/2018 JOYCE SAHU DO Ot Z92.3 PERSONAL HISTORY OF IRRADIATION Procedures Code Description Performed By Performed On 45.16 ESOPHAGOGASTRODUODENOSCOPY [ EGD] W/CLOSE 11/20/2012 45.23 COLONOSCOPY 11/20/2012 53683 [employer] 05/29/2014 54367 SLEEP STUDY ([facility]- SLEEP STUDY) 06/22/2014 [id number] INSPECTION OF UPPER INTESTINAL TRACT, EN 11/05/2015 [id number] INSPECTION OF LOWER INTESTINAL TRACT, EN 11/05/2015 [id number] DRAINAGE OF STOMACH WITH DRAINAGE DEVICE 05/03/2018 [...] ABO+Rh group AP NRG Transfusion band number [id number] NRG Blood group antibody screen NEGATIVE NRG [...] ABO+Rh group AP NRG Transfusion band number [id number] NRG Blood group antibody screen NEGATIVE NRG Whole [...] 0.1 10*3/uL 0.0-0.1 Comprehensive metabolic panel - 10/29/18 10:45 Serum or plasma sodium measurement (moles/volume) [...] calculation of estimated glomerular filtration rate 54 [facility] Serum or plasma glucose measurement (mass/volume) 111 [...] RESULTS NEGATIVE FOR ANTIGEN AND TOXIN A/B [facility] [id number] - 05/07/18 07:55 RED CELLS LEUKO REDUCED AS1 - 07/30/18 17:48 RED CELLS LEUKO REDUCED AS1 TRANSFUSED 07/30/182026 [facility] Blood type T Indirect antibody screen panel - 07/30/18 17:48 ABO+Rh group AP [facility] Transfusion band number [id number] [facility] Blood group antibody screen NEGATIVE [facility] Complete blood count (CBC) with automated white blood cell (WBC) differential - 07/31/18 05:40 Blood leukocytes automated count (number/volume) 6.3 10*3/uL 4.3-11.0 Blood erythrocytes automated count (number/volume) 3.53 10*6/uL 4.35-5.85 Venous blood hemoglobin measurement (mass/volume) 8.5 g/dL 11.5-16.0 Blood hematocrit (volume fraction) 28 % 35-52 Automated erythrocyte mean corpuscular volume 80 [foz_us] 80-99 Automated erythrocyte mean corpuscular hemoglobin (mass per erythrocyte) 24 pg 25-34 Automated erythrocyte mean corpuscular hemoglobin concentration measurement ( mass/volume) 30 g/dL 32-36 Automated erythrocyte distribution width ratio 17.5 % 10.0-14.5 Automated blood platelet count (count/volume) 281 10*3/uL 130-400 Automated blood platelet mean volume measurement 10.1 [foz_us] 7.4-10.4 Automated blood neutrophils/100 leukocytes 51 % 42-75 Automated blood lymphocytes/100 leukocytes 36 % 12-44 Blood monocytes/100 leukocytes 10 % [...] 0.0 10*3/uL 0.0-0.1 Comprehensive metabolic panel - 07/31/18 05:40 Serum or plasma sodium measurement (moles/volume) 138 mmol/L 135-145 Serum or plasma potassium measurement (moles/volume) 4.2 mmol/L 3.6-5.0 Serum or plasma chloride measurement (moles/volume) 109 mmol/L 98-107 Carbon dioxide 20 mmol/L 21-32 Serum or plasma anion gap determination (moles/volume) 9 mmol/L 5-14 Serum or plasma urea nitrogen measurement (mass/volume) 26 mg/dL 7-18 Serum or plasma creatinine measurement (mass/volume) 1.00 mg/dL 0.60-1.30 Serum or plasma urea nitrogen/creatinine mass ratio 26 NRG Serum or plasma creatinine measurement with calculation of estimated glomerular filtration rate 55 NRG Serum or plasma glucose measurement (mass/volume) 87 mg/dL 70-105 Serum or plasma calcium measurement (mass/volume) 9.1 mg/dL 8.5-10.1 Serum or plasma total bilirubin measurement (mass/volume) 0.7 mg/dL 0.1-1.0 Serum or plasma alkaline phosphatase measurement (enzymatic activity/volume) 71 U/L 40-136 Serum or plasma aspartate aminotransferase measurement (enzymatic activity/ volume) 16 U/L 5-34 Serum or plasma alanine aminotransferase measurement (enzymatic activity/volume ) 16 U/L 0-55 Serum or plasma protein measurement (mass/volume) 7.0 g/dL 6.4-8.2 Serum or plasma albumin measurement (mass/volume) 4.1 g/dL 3.2-4.5 CALCIUM CORRECTED 9.0 mg/dL 8.5-10.1 Complete blood count (CBC) with automated white blood cell (WBC) differential - 08/01/18 07:05 Blood leukocytes automated count (number/volume) 9.0 10*3/uL 4.3-11.0 Blood erythrocytes automated count (number/volume) 3.18 10*6/uL 4.35-5.85 Venous blood hemoglobin measurement (mass/volume) 7.8 g/dL 11.5-16.0 Blood hematocrit (volume fraction) 26 % 35-52 Automated erythrocyte mean corpuscular volume 80 [foz_us] 80-99 Automated erythrocyte mean corpuscular hemoglobin (mass per erythrocyte) 25 pg 25-34 Automated erythrocyte mean corpuscular hemoglobin concentration measurement ( mass/volume) 31 g/dL 32-36 Automated erythrocyte distribution width ratio 18.2 % 10.0-14.5 Automated blood platelet count (count/volume) 259 10*3/uL 130-400 Automated blood platelet mean volume measurement 10.3 [foz_us] 7.4-10.4 Automated blood neutrophils/100 leukocytes 85 % 42-75 Automated blood lymphocytes/100 leukocytes 8 % 12-44 Blood monocytes/100 leukocytes 6 % 0-12 Automated blood eosinophils/100 leukocytes 1 % 0-10 Automated blood basophils/100 leukocytes 0 % 0-10 Blood neutrophils automated count (number/volume) 7.6 10*3 1.8-7.8 Blood lymphocytes automated count (number/volume) 0.7 10*3 1.0-4.0 Blood monocytes automated count (number/volume) 0.6 10*3 0.0-1.0 Automated eosinophil count 0.1 10*3/uL 0.0-0.3 Automated blood basophil count (count/volume) 0.0 10*3/uL 0.0-0.1 Whole blood basic metabolic panel - 08/01/18 07:05 Serum or plasma sodium measurement (moles/volume) 139 mmol/L 135-145 Serum or plasma potassium measurement (moles/volume) 4.2 mmol/L 3.6-5.0 Serum or plasma chloride measurement (moles/volume) 111 mmol/L 98-107 Carbon dioxide 18 mmol/L 21-32 Serum or plasma anion gap determination (moles/volume) 10 mmol/L 5-14 Serum or plasma urea nitrogen measurement (mass/volume) 28 mg/dL 7-18 Serum or plasma creatinine measurement (mass/volume) 1.14 mg/dL 0.60-1.30 Serum or plasma urea nitrogen/creatinine mass ratio 25 NRG Serum or plasma creatinine measurement with calculation of estimated glomerular filtration rate 48 NRG Serum or plasma glucose measurement (mass/volume) 89 mg/dL 70-105 Serum or plasma calcium measurement (mass/volume) 9.2 mg/dL 8.5-10.1 Complete blood count (CBC) with automated white blood cell (WBC) differential - 08/02/18 06:05 Blood leukocytes automated count (number/volume) 6.8 10*3/uL 4.3-11.0 Blood erythrocytes automated count (number/volume) 3.50 10*6/uL 4.35-5.85 Venous blood hemoglobin measurement (mass/volume) 8.5 g/dL 11.5-16.0 Blood hematocrit (volume fraction) 29 % 35-52 Automated erythrocyte mean corpuscular volume 81 [foz_us] 80-99 Automated erythrocyte mean corpuscular hemoglobin (mass per erythrocyte) 24 pg 25-34 Automated erythrocyte mean corpuscular hemoglobin concentration measurement ( mass/volume) 30 g/dL 32-36 Automated erythrocyte distribution width ratio 18.7 % 10.0-14.5 Automated blood platelet count (count/volume) 232 10*3/uL 130-400 Automated blood platelet mean volume measurement 10.3 [foz_us] 7.4-10.4 Automated blood neutrophils/100 leukocytes 79 % 42-75 Automated blood lymphocytes/100 leukocytes 10 % 12-44 Blood monocytes/100 leukocytes 10 % 0-12 Automated blood eosinophils/100 leukocytes 1 % 0-10 Automated blood basophils/100 leukocytes 0 % 0-10 Blood neutrophils automated count (number/volume) 5.4 10*3 1.8-7.8 Blood lymphocytes automated count (number/volume) 0.7 10*3 1.0-4.0 Blood monocytes automated count (number/volume) 0.7 10*3 0.0-1.0 Automated eosinophil count 0.0 10*3/uL 0.0-0.3 Automated blood basophil count (count/volume) 0.0 10*3/uL 0.0-0.1 Comprehensive metabolic panel - 08/02/18 06:05 Serum or plasma sodium measurement (moles/volume) 138 mmol/L 135-145 Serum or plasma potassium measurement (moles/volume) 3.8 mmol/L 3.6-5.0 Serum or plasma chloride measurement (moles/volume) 109 mmol/L 98-107 Carbon dioxide 20 mmol/L 21-32 Serum or plasma anion gap determination (moles/volume) 9 mmol/L 5-14 Serum or plasma urea nitrogen measurement (mass/volume) 29 mg/dL 7-18 Serum or plasma creatinine measurement (mass/volume) 1.23 mg/dL 0.60-1.30 Serum or plasma urea nitrogen/creatinine mass ratio 24 NRG Serum or plasma creatinine measurement with calculation of estimated glomerular filtration rate 44 NRG Serum or plasma glucose measurement (mass/volume) 95 mg/dL 70-105 Serum or plasma calcium measurement (mass/volume) 9.1 mg/dL 8.5-10.1 Serum or plasma total bilirubin measurement (mass/volume) 0.5 mg/dL 0.1-1.0 Serum or plasma alkaline phosphatase measurement (enzymatic activity/volume) 66 U/L 40-136 Serum or plasma aspartate aminotransferase measurement (enzymatic activity/ volume) 35 U/L 5-34 Serum or plasma alanine aminotransferase measurement (enzymatic activity/volume ) 39 U/L 0-55 Serum or plasma protein measurement (mass/volume) 6.5 g/dL 6.4-8.2 Serum or plasma albumin measurement (mass/volume) 3.8 g/dL 3.2-4.5 CALCIUM CORRECTED 9.3 mg/dL 8.5-10.1 Complete blood count (CBC) with automated white blood cell (WBC) differential - 08/03/18 14:38 Blood leukocytes automated count (number/volume) 5.8 10*3/uL 4.3-11.0 Blood erythrocytes automated count (number/volume) 3.68 10*6/uL 4.35-5.85 Venous blood hemoglobin measurement (mass/volume) 9.0 g/dL 11.5-16.0 Blood hematocrit (volume fraction) 30 % 35-52 Automated erythrocyte mean corpuscular volume 82 [foz_us] 80-99 Automated erythrocyte mean corpuscular hemoglobin (mass per erythrocyte) 24 pg 25-34 Automated erythrocyte mean corpuscular hemoglobin concentration measurement ( mass/volume) 30 g/dL 32-36 Automated erythrocyte distribution width ratio 20.0 % 10.0-14.5 Automated blood platelet count (count/volume) 308 10*3/uL 130-400 Automated blood platelet mean volume measurement 10.3 [foz_us] 7.4-10.4 Automated blood neutrophils/100 leukocytes 54 % 42-75 Automated blood lymphocytes/100 leukocytes 30 % 12-44 Blood monocytes/100 leukocytes 13 % 0-12 Automated blood eosinophils/100 leukocytes 2 % 0-10 Automated blood basophils/100 leukocytes 1 % 0-10 Blood neutrophils automated count (number/volume) 3.1 10*3 1.8-7.8 Blood lymphocytes automated count (number/volume) 1.7 10*3 1.0-4.0 Blood monocytes automated count (number/volume) 0.8 10*3 0.0-1.0 Automated eosinophil count 0.1 10*3/uL 0.0-0.3 Automated blood basophil count (count/volume) 0.0 10*3/uL 0.0-0.1 Comprehensive metabolic panel - 08/03/18 14:38 Serum or plasma sodium measurement (moles/volume) 140 mmol/L 135-145 Serum or plasma potassium measurement (moles/volume) 3.8 mmol/L 3.6-5.0 Serum or plasma chloride measurement (moles/volume) 109 mmol/L 98-107 Carbon dioxide 18 mmol/L 21-32 Serum or plasma anion gap determination (moles/volume) 13 mmol/L 5-14 Serum or plasma urea nitrogen measurement (mass/volume) 26 mg/dL 7-18 Serum or plasma creatinine measurement (mass/volume) 1.19 mg/dL 0.60-1.30 Serum or plasma urea nitrogen/creatinine mass ratio 22 NRG Serum or plasma creatinine measurement with calculation of estimated glomerular filtration rate 45 NRG Serum or plasma glucose measurement (mass/volume) 97 mg/dL 70-105 Serum or plasma calcium measurement (mass/volume) 9.5 mg/dL 8.5-10.1 Serum or plasma total bilirubin measurement (mass/volume) 0.4 mg/dL 0.1-1.0 Serum or plasma alkaline phosphatase measurement (enzymatic activity/volume) 74 U/L 40-136 Serum or plasma aspartate aminotransferase measurement (enzymatic activity/ volume) 32 U/L 5-34 Serum or plasma alanine aminotransferase measurement (enzymatic activity/volume ) 35 U/L 0-55 Serum or plasma protein measurement (mass/volume) 7.1 g/dL 6.4-8.2 Serum or plasma albumin measurement (mass/volume) 4.0 g/dL 3.2-4.5 CALCIUM CORRECTED 9.5 mg/dL 8.5-10.1 Magnesium - 08/03/18 14:38 Magnesium 2.1 mg/dL 1.8-2.4 Serum or plasma thyrotropin measurement by detection limit <=0.05 miu/l (units/ volume) - 08/03/18 14:38 Serum or plasma thyrotropin measurement by detection limit <=0.05 miu/l (units/ volume) 1.23 u[iU]/mL 0.35-4.94 Encounters ACCT No. Visit Date/Time Discharge Status Pt. Type Provider Facility Loc./Unit Complaint [id number] 05/27/2014 14:11:00 05/27/2014 23:59:59 CLS Outpatient BOOKER CARMONA APRN 03/12/11 05/26/2018 06:09:37 05/26/2018 23:59:59 CLS Outpatient Joyce Sahu [id number] 11/13/2014 09:57:55 ACT Document Registration [id number] 08/06/2018 00:10:00 08/06/2018 23:59:59 CLS Preadmit JOYCE SAHU DO [facility] LAB UNCONTROLLABLE DIARREHEA,NAUSEA [id number] 05/07/2018 09:34:00 08/05/2018 00:01:00 DIS Outpatient JOYCE SAHU DO [facility] LAB UNCONTROLLABLE DIARREHEA,NAUSEA [id number] 08/03/2018 14:23:00 08/03/2018 17:27:00 DIS Emergency KHRIS BRADEN, BABAK Taylor [facility] ER STATES HAVING A FIB EVENT [id number] 08/01/2018 12:55:00 08/02/2018 12:55:00 DIS Outpatient JOYCE SAHU DO [facility] 4TH ANEMIA [id number] 05/03/2018 00:24:00 05/04/2018 16:06:00 DIS Inpatient YURI MARSHALL DO [facility] 4TH DISTAL SMALL BOWEL OBSTRUCTION,PANCREATITIS [id number] 04/08/2018 10:38:00 04/08/2018 13:13:00 DIS Emergency JOSE GODFREY [facility] ER NAUSE;HEAD PAIN [id number] 02/25/2018 07:21:00 02/25/2018 23:59:59 CLS Outpatient DAMON CLAUDIO MD [facility] CARD CHEST PAIN,HTN,PAF,GERD [id number] 01/28/2018 10:53:00 01/28/2018 23:59:59 CLS Outpatient RIGO SAHU DOQUELINE S Via [facility] RAD LOCALIZED SWELLING LEFT LOWER LEG [id number] 10/29/2017 10:30:00 10/29/2017 23:59:59 CLS Preadmit DIANNA ZURITA APRN Via [facility] RAD ANNUAL SCREENING [id number] 10/01/2017 09:00:00 10/01/2017 23:59:59 CLS Outpatient RIGO SAHU DOQUELINE S Via [facility] RAD PANCREATIC MASS F/ U [id number] 09/13/2017 01:21:00 09/13/2017 02:44:00 DIS Emergency BABAK PINEDO MD Via [facility] ER A-FIB [id number] 09/03/2017 13:00:00 09/04/2017 20:46:00 DIS Inpatient RIGO SAHU DOQUELINE S Via [facility] 4TH ANEMIA [id number] 08/27/2017 09:45:00 08/27/2017 23:59:59 CLS Preadmit RIGO SAHU DOQUELINE S Via [facility] RAD SCREENING [id number] 08/06/2017 11:50:00 08/06/2017 23:59:59 CLS Outpatient DAMON CLAUDIO MD [facility] CARD CHEST PAIN [id number] 07/02/2017 15:11:00 07/02/2017 17:30:00 DIS Emergency DEMOND BRADEN, JH S Via [facility] ER A-FIB EPISODE [id number] 03/31/2017 19:11:00 03/31/2017 22:03:00 DIS Emergency MARIE HAN DO [facility] ER DIZZINESS [id number] 2017 11:34:00 2017 17:44:00 DIS Emergency MARLY BRADEN, HEATHER Gunn Via [facility] ER WEAKNESS/VISION DISTURBANCE [id number] 03/11/2017 22:30:00 03/11/2017 23:40:00 DIS Emergency KHRIS BRADEN, BABAK Taylor Via [facility] ER RT SIDED ABDOMINAL PAIN [id number] 12/07/2016 21:01:00 12/08/2016 00:15:00 DIS Emergency MARGO JOHNSON SURGEON PARTNER Via [facility] ER STOMACH PAIN [id number] 09/12/2016 10:08:00 09/12/2016 23:59:59 CLS Outpatient GONZÁLEZ BRADEN, DAMON Gunn [facility] LAB CHEST PAIN,HTN,PAF,GI BLEED [id number] 02/29/2016 09:38:00 02/29/2016 23:59:59 CLS Outpatient RIGO SAHU DOQUELINE S [facility] RAD DYSPHAGIA,WEAKNESS, FATIGUE,ANEMIA,EDEMA [id number] 01/05/2016 15:26:00 01/05/2016 23:59:59 CLS Outpatient CONOR PLATT JOYCE S [facility] RAD SCREENING [id number] 12/25/2015 06:17:00 12/26/2015 13:30:00 DIS Inpatient CONOR PLATT JOYCE S Via [facility] ICU CHEST PAIN [id number] 11/10/2015 07:03:00 11/10/2015 23:59:59 CLS Outpatient KIKO BRADEN, BEST Molina [facility] SDC GI BLEED,ANEMIA [id number] 11/04/2015 08:34:00 11/06/2015 14:30:00 DIS Inpatient CONOR PLATT JOYCE S [facility] 4TH ANEMIA [id number] 07/29/2015 05:35:00 07/29/2015 23:59:59 CLS Outpatient KIKO BRADEN, BEST Molina [facility] PREOP COLONOSCOPY [id number] 05/09/2015 22:36:00 05/10/2015 00:45:00 DIS Emergency KHRIS BRADEN, BABAK Taylor [facility] ER SOA [id number] 11/13/2014 09:55:00 11/13/2014 12:10:00 DIS Emergency MARGO JOHNSON SURGEON PARTNER Via [facility] ER FALL/LEFT KNEE INJ [id number] 06/24/2014 14:51:00 06/24/2014 23:59:59 CLS Outpatient GONZÁLEZ BRADEN, DAMON Gunn [facility] RAD CAROTID BRUIT, CP,HTN, PAF [id number] 05/18/2014 03:30:00 05/18/2014 12:00:00 DIS Inpatient LARRY PLUNKETT MD [facility] CSD CHEST PAIN [id number] 04/21/2014 21:20:00 04/22/2014 19:25:00 DIS Inpatient EDVINNDYONNY PLATT JOYCE S Via [facility] ICU A FIB WITH RVR [id number] 09/18/2013 12:50:00 09/18/2013 23:59:59 CLS Outpatient EDVINNDER , JOYCE S [facility] RAD CEPHALGIA, DIZZINESS [id number] 09/02/2013 13:23:00 09/02/2013 23:59:59 CLS Outpatient ORENDER DO, JOYCE S [facility] RAD CEPHALGIA, DIZZINESS [id number] 12/07/2012 06:17:00 12/07/2012 09:07:00 DIS Emergency MARIE HAN DO [facility] ER SOA;ABD PAIN [id number] 11/22/2012 18:28:00 11/22/2012 23:59:59 CLS Outpatient [id number] 11/19/2012 18:41:00 11/21/2012 17:00:00 DIS Inpatient ORENDER DO JOYCE S [facility] 4TH GI BLEED [id number] 11/09/2012 14:58:00 11/10/2012 14:11:00 DIS Inpatient BRENDAN QUINTEROS MD Via [facility] 4TH BLURRED VISION NAUSEA DIZZY [id number] 10/24/2012 14:32:00 10/24/2012 16:22:00 DIS Emergency BABAK PINEDO MD Via [facility] ER FALL/FACIAL INJURY [id number] 10/18/2012 20:15:00 10/19/2012 12:30:00 DIS Inpatient JOYCE SAHU DO S Via [facility] ICU A FIB; RVR [id number] 01/25/2018 08:50:00 Document Registration [id number] 01/23/2018 08:53:00 Document Registration [id number] 01/17/2018 15:39:00 Document Registration [id number] 06/24/2014 15:32:00 Document Registration [id number] 06/24/2014 15:31:00 Document Registration [id number] 06/24/2014 15:31:00 Document Registration [id number] 09/29/2012 03:08:00 Document Registration [id number] 09/16/2012 11:30:00 Document Registration [id number] 07/11/2012 07:13:00 Document Registration [id number] 06/13/2012 22:45:00 Document Registration [id number] 01/02/2012 01:06:00 Document Registration [id number] 03/14/2011 09:46:00 Document Registration [id number] 01/23/2011 00:30:00 Document Registration [id number] 02/03/2010 09:59:00 Document Registration [id number] 11/30/2009 11:00:00 Document Registration [id number] 11/25/2009 13:10:00 Document Registration [id number] 10/21/2009 14:31:00 Document Registration [id number] 09/30/2009 08:17:00 Document Registration [id number] 09/28/2009 09:40:00 Document Registration [id number] 04/09/2009 00:08:00 Document Registration
--- NOTE | 2018-08-11 19:33 | NUR ---
PT TO ROOM W/ FRIEND. REPORTS SHE "JUST WANTS HER HEMOGLOBIN CHECKED AND TO SEE IF SHE'S DEHYDRATED." PT REPORTS SHE HAD A BLOOD TRANSFUSION LAST WEEK ET THINKS SHE "MAY BE LOW AGAIN."
[2018-08-11 19:52] LABS: BASOPHILS % (AUTO) 1 % (0-10); EOSINOPHILS # (AUTO) 0.1 10^3/uL (0.0-0.3); EOSINOPHILS % (AUTO) 2 % (0-10); HEMATOCRIT 28 % (35-52); HEMOGLOBIN 8.2 G/DL (11.5-16.0); LYMPHOCYTES # (AUTO) 2.2 X 10^3 (1.0-4.0); LYMPHOCYTES % (AUTO) 35 % (12-44); MEAN CORPUSCULAR HEMOGLOBIN 25 PG (25-34); MEAN CORPUSCULAR HGB CONC 30 G/DL (32-36); MEAN CORPUSCULAR VOLUME 83 FL (80-99); MEAN PLATELET VOLUME 10.3 FL (7.4-10.4); MONOCYTES # (AUTO) 0.7 X 10^3 (0.0-1.0); MONOCYTES % (AUTO) 12 % (0-12); NEUTROPHILS # (AUTO) 3.1 X 10^3 (1.8-7.8); NEUTROPHILS % (AUTO) 50 % (42-75); PLATELET COUNT 346 10^3/uL (130-400); RED CELL DISTRIBUTION WIDTH 22.3 % (10.0-14.5); WHITE BLOOD COUNT 6.1 10^3/uL (4.3-11.0)
[2018-08-11 20:11] LABS: ALBUMIN 4.1 GM/DL (3.2-4.5); BILIRUBIN,TOTAL 0.4 MG/DL (0.1-1.0); CALCIUM 9.4 MG/DL (8.5-10.1); CREATININE SERUM 1.03 MG/DL (0.60-1.30); POTASSIUM 4.2 MMOL/L (3.6-5.0); TOTAL PROTEIN 7.2 GM/DL (6.4-8.2)
[2018-08-11 20:25] LABS: BILIRUBIN,URINE NEGATIVE (NEGATIVE); CLARITY,URINE CLEAR; COLOR,URINE YELLOW; GLUCOSE, URINE (UA) NEGATIVE (NEGATIVE); KETONES,URINE NEGATIVE (NEGATIVE); LEUKOCYTE ESTERASE ,URINE 1+ (NEGATIVE); NITRITE,URINE NEGATIVE (NEGATIVE); PH,URINE 6 (5-9); PROTEIN,URINE NEGATIVE (NEGATIVE); UROBILINOGEN,URINE NORMAL (NORMAL)
[2018-08-11 20:30] LABS: BACTERIA,URINE NEGATIVE /HPF; WBC,URINE 0-2 /HPF
--- NOTE | 2018-08-11 20:45 | ED General ---
General Chief Complaint: General Problems/Pain Stated Complaint: DIZZINESS,FATIGUE Nursing Triage Note: PT PRESENTS TO ER WITH COMPLAINT OF DIZZINES, FATIGUE, AND GENERALIZED FATIGUE. PT IS CONCERNED ABOUT HGB LEVELS. Nursing Sepsis Screen: No Definite Risk Source of Information: Patient Exam Limitations: No Limitations History of Present Illness Date Seen by Provider: Aug 11, 2018 Time Seen by Provider: 20:40 Initial Comments To ER with reports of dizziness fatigue and general malaise. She is concerned about her hemoglobin levels. She has a history of anemia. She is on Xarelto for atrial fibrillation. She has received iron infusions and a blood transfusion last week. She states that she has seen Dr. Candelario from gastroenterology in [place] he has been unable to identify a source of bleeding. She denies noting any dark or tarry stools. She denies chest pain or shortness of breath. Timing/Duration: 1-2 Days Severity: Moderate Associated Systoms: Weakness Allergies and Home Medications Allergies Coded Allergies: Beta-Blockers (Beta-Adrenergic Bloc (Unverified Allergy, Unknown, 11/20/12) atenolol (Verified Allergy, Unknown, 04/05/07) Home Medications Acetaminophen 500 Mg Tablet, 1,000 MG PO TID, (Reported) TAKES 2 (500MG) TABLETS Cholecalciferol (Vitamin D3) 1,000 Unit Capsule, 1,000 UNIT PO DAILY, (Reported) Diltiazem HCl 240 Mg Cap.er.24h, 240 MG PO HS, (Reported) Docusate Sodium 100 Mg Capsule, 1-2 CAP PO BID PRN for CONSTIPATION-1ST LINE, ( Reported) Fluticasone Propionate 16 Gm [place].susp, 2 SPRAYS NS DAILY PRN for ALLERGIES, ( Reported) Losartan Potassium 50 Mg Tablet, 50 MG PO HS, (Reported) Multivitamins with Iron 1 Each Tab.chew, 1 EACH PO DAILY Prescribed by: ANTHONY SAHU on 07/31/18 1854 Ondansetron HCl 4 Mg Tablet, 4 MG PO Q4H Prescribed by: ANTHONY SAHU on 08/02/18 1036 Pantoprazole Sodium 40 Mg Tablet.dr, 40 MG PO DAILY PRN for INDIGESTION, ( Reported) Propafenone HCl 225 Mg Cap, 225 MG PO 0800,1500,2100, (Reported) Rivaroxaban 20 Mg Tablet, 20 MG PO HS, (Reported) Sertraline HCl 50 Mg Tablet, 25 MG PO BID, (Reported) TAKES 1/2 (50MG) TABLET Patient Home Medication List Home Medication List Reviewed: Yes Review of Systems Review of Systems Constitutional: see HPI, malaise, weakness EENTM: see HPI Respiratory: no symptoms reported Cardiovascular: no symptoms reported Genitourinary: no symptoms reported Musculoskeletal: no symptoms reported Skin: no symptoms reported Psychiatric/Neurological: No Symptoms Reported Past Ravbsno-Nrobny-Uasbba Hx Patient Social History Alcohol Use: Denies Use Number of Drinks Today: Alcohol Beverage of Choice: Wine Recreational Drug Use: No Smoking Status: Never a Smoker 2nd Hand Smoke Exposure: No Recent Foreign Travel: No Contact w/Someone Who Travel: No Recent Infectious Disease Expo: No Recent Hopitalizations: No Immunizations Up To Date Tetanus Booster (TDap): Unknown PED Vaccines UTD: No Date of Pneumonia Vaccine: Mar 11, 2011 Date of Influenza Vaccine: May 04, 2018 Seasonal Allergies Seasonal Allergies: Yes Past Medical History Surgeries: Yes Abdominal, Appendectomy, Section, Gallbladder, 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, Neurological, Oophorectomy Respiratory: No Currently Using CPAP: No Currently Using BIPAP: No Cardiac: Yes (RBBB) Atrial Fibrillation, Heart Murmur, Hypertension, Valvular Heart Disease Neurological: Yes Headaches /Migraines, Neuropathy 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 Disorders: Yes (CERVICAL DYSPLASIA) Female 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 Sexually Transmitted Disease: No HIV/AIDS: No Genitourinary: Yes (RENAL INSUFFICIENCY) Kidney Infection, Bladder Infection, Renal Failure Gastrointestinal: Yes Gastroesophageal Reflux, Gastrointestinal Bleed, Chronic Constipation, Hiatal Hernia, Gall Bladder Disease Musculoskeletal: Yes (KNEES, BACK, HIPS) Arthritis, Chronic Back Pain Endocrine: Yes (Pre Diabetic) Diabetes, Non-Insulin dep HEENT: No Loss of Vision: Denies Hearing Impairment: Denies Cancer: Yes Bone Did You Recieve Any Treatments: Yes What Type of Treatment Did You: Chemotherapy, Radiation, Surgical Intervention Psychosocial: Yes Anxiety Integumentary: No Blood Disorders: Yes (ANEMIA) Adverse Reaction/Blood Tranf: No Family Medical History Arthritis 19 MOTHER, Onset:30's - 40 (RA) Cardiovascular disease 19 MOTHER, Onset:40's - 50 Completed stroke 19 MOTHER, Onset:60 years & older Headache disorder 19 FATHER, Onset:Unknown (severe sinus headaches) Hypertension 19 MOTHER, Onset:50's - 60 Myocardial infarction 19 MOTHER, Onset:60 years & older Psychosocial problem 19 FATHER, Onset:Unknown No Family History of: AIDS Abdominal aortic aneurysm Plevna's disease Alcoholism Alzheimer's disease Aphasia Asthma Cancer of mouth Cataracts Colon cancer Congenital disease Congenital heart disease Coronary thrombosis Cystic fibrosis Deafness or hearing loss Dementia Diabetes mellitus Drug abuse Dysphasia Fibrocystic disease of breast Gastroenteritis Glaucoma Hypercholesterolemia Infertility Kidney disease Neoplasm Not obtainable due to adoption Osteoporosis Parkinson's disease Prostate cancer Respiratory disorder Seizure disorder Severe allergy Thyroid disease Tuberculosis Visual disorder Heart Disease Physical Exam Vital Signs Vital Signs - First Documented 08/11/18 18:36 Temp 97.8 Pulse 67 Resp 20 B/P (MAP) 187/69 (108) Pulse Ox 99 O2 Delivery Room Air Capillary Refill : Less Than 3 Seconds Height, Weight, BMI Height: 5'6.00" Weight: 180lbs. 4.0oz. 81.627342hs; 30.5 BMI Method:Stated General Appearance: No Apparent Distress, WD/WN, Other (alert and oriented GCS 15 very pleasant) Eyes: Bilateral Eye Normal Inspection, Bilateral Eye PERRL, Bilateral Eye EOMI Neck: Full Range of Motion, Normal Inspection Respiratory: No Accessory Muscle Use, No Respiratory Distress Cardiovascular: Regular Rate, Rhythm, Normal Peripheral Pulses Gastrointestinal: Normal Bowel Sounds, Non Tender, Soft Extremity: Normal Capillary Refill, Normal Inspection Neurologic/Psychiatric: Alert, Oriented x3 Skin: Normal Color, Warm/Dry Progress/Results/Core Measures Suspected Sepsis Recent Fever Within 48 Hours: No Infection Criteria Present: None New/Unexplained Altered Menta: No Sepsis Screen: No Definite Risk SIRS Temperature:97.8 Pulse: 67 Respiratory Rate: 20 Laboratory Tests 08/11/18 19:46: White Blood Count 6.1 Blood Pressure 187 /69 Mean: 108 Laboratory Tests 08/11/18 19:46: Creatinine 1.03, Platelet Count 346, Total Bilirubin 0.4 Results/Orders Lab Results My Orders Vital Signs/I&O Capillary Refill : Less Than 3 Seconds Blood Pressure Mean: 108 Departure Communication (Admissions) 2041- discussed with patient and her daughter. We will write a prescription for outpatient labs tomorrow, results of hemoglobin and hematocrit to be faxed to Dr. SAHU and patient's setter off Dr. Mcfarland. Her last hemoglobin was 9 last week. She tends to run in the 7-9 range so her hemoglobin tonight is not unusual. Impression Primary Impression: Anemia Qualified Codes: D64.9 - Anemia, unspecified Disposition: 01 HOME, SELF-CARE Condition: Stable Departure-Patient Inst. Decision time for Depature: 20:43 Referrals: ZULMA OTTO JACQUELINE S DO (PCP/Family) Primary Care Physician GERRI MANN MD Patient Instructions: NO INSTRUCTIONS GIVEN Add. Discharge Instructions: 1. 1. Have the labs repeated tomorrow. Results will be sent to Dr. Sahu and Dr. Mcfarland. He might call Dr. Sahu couple of hours after having labs drawn to see if the results of the hemoglobin are low enough to warrant blood transfusion. If you have any worsening symptoms return to the emergency room. All discharge instructions reviewed with patient and/or family. Voiced understanding. Copy Copies To 1: DMAON MCFARLAND MD; ANTHONY SAHU PETER J APRN Aug 11, 2018 20:45
[2018-08-11 21:00] VITALS: BP 168/66
== END 2018-08-11 21:00 | disposition home or self-care (01) ==
LOC: EDUNIT# 18:05 → ER 18:07
DX: D64.9 Anemia, unspecified (principal); I48.91 Unspecified atrial fibrillation; I10 Essential (primary) hypertension; G43.909 Migraine, unspecified, not intractable, without status migrainosus; K21.9 Gastro-esophageal reflux disease without esophagitis; E11.40 Type 2 diabetes mellitus with diabetic neuropathy, unspecified; F41.9 Anxiety disorder, unspecified; Z82.49 Family history of ischemic heart disease and other diseases of the circulatory system; Z85.830 Personal history of malignant neoplasm of bone; Z92.21 Personal history of antineoplastic chemotherapy; Z87.19 Personal history of other diseases of the digestive system; Z87.448 Personal history of other diseases of urinary system; Z90.49 Acquired absence of other specified parts of digestive tract; Z98.890 Other specified postprocedural states; Z90.710 Acquired absence of both cervix and uterus; Z88.8 Allergy status to other drugs, medicaments and biological substances; Z79.51 Long term (current) use of inhaled steroids; Z79.01 Long term (current) use of anticoagulants
CPT/HCPCS: 36415; 80053; 81000; 85025

== ENCOUNTER 2018-08-13 13:39 | Outpatient (CLI) | payer MEDICARE ==
[~2018-08-13] VITALS: Ht 167.6 cm; Wt 81.8 kg
[2018-08-13 13:48] VITALS: BP 169/67
[2018-08-13] MEDS ORDERED: NS IV 500 ML 500 ML IV SCH (14:15)
[2018-08-13] MEDS ORDERED: FUROSEMIDE 40 MG/4 ML INJ (LASIX) IV ONE (14:15)
[2018-08-13 15:38] VITALS: BP 169/67
[2018-08-13 16:00] VITALS: BP 168/76
[2018-08-13 17:45] VITALS: BP 170/75
[2018-08-13 18:08] LABS: HEMOGLOBIN 8.9 G/DL (11.5-16.0)
[2018-08-13] MEDS ORDERED: FUROSEMIDE 40 MG/4 ML INJ (LASIX) ONE (18:09)
== END 2018-08-13 18:28 | disposition home or self-care (01) ==
LOC: SDC 13:39
PROVIDERS: ATTEND Family Medicine
DX: D64.9 Anemia, unspecified (principal)
CPT/HCPCS: 36415; 36430; 85014; 85018; 86850; 86900; 86901; 86920; 96374

== ENCOUNTER → 2018-09-16 | Outpatient (CLI) | payer MEDICARE ==
[~2018-09-16] MED LIST changes: +HOLD METFORMIN - RECEIVED CONTRAST 20 ML VIAL IV SCH; +IOHEXOL 350 MG/ML 100 ML (OMNIPAQUE 350) VIAL IV ONE; -RIVA20TA PO
--- NOTE | 2018-09-16 12:43 | Diagnostic Imaging Report ---
PROCEDURE: CT abdomen and pelvis with contrast. TECHNIQUE: Multiple contiguous axial images were obtained through the abdomen and pelvis after administration of intravenous contrast. Auto Exposure Controls were utilized during the CT exam to meet ALARA standards for radiation dose reduction. INDICATION: Anemia, nausea, vomiting, and diarrhea. COMPARISON: Study compared to 05/02/2018. FINDINGS: There has been interval resolution of the prior convincing features of a small bowel obstruction. There is no hydronephrosis. There is contrast media being excreted by the kidneys without hydronephrosis. The liver, spleen, adrenals, and pancreas are unremarkable. The gallbladder is surgically absent. Ectasia of the distal common bile duct at 13 mm is not definitively changed from prior. No intrahepatic biliary dilatation. There is no ascites, abscess, hematoma, or other fluid collection. Laminectomies and posterior bone graft material are present. No acute bony abnormality found. The lung bases were nonacute. Urinary bladder is unremarkable. There is no ascites, abscess, hematoma, or other fluid collection. There is no pneumatosis or free gas. The lung bases are nonacute. IMPRESSION: Resolution of prior features of a bowel obstruction. Some stable mild presumed post-cholecystectomy biliary ectasia. Unobstructed urinary tracts. No inflammatory process, ascites, fluid collection, or acute abnormalities identified. Dictated by: Dictated on workstation # [id number]
--- NOTE | 2018-09-17 12:22 | Diagnostic Imaging Report ---
INDICATION: Screening. EXAMINATION: Digital mammogram bilateral screening with 3-D tomosynthesis. The current study was also evaluated with a Computer Aided Detection (CAD) system. This study was compared to prior exams of 01/05/2016. At this time, there are no current complaints. FINDINGS: There is a mild amount of fibroglandular tissue present in both breasts, similar to the prior exam. No primary or secondary sign of malignancy is noted. IMPRESSION: 1. There is no radiographic evidence for malignancy. 2. The patient should have her annual bilateral screening mammogram on schedule in September 2019. ACR BI-RADS Category 1: Negative. Result letter will be mailed to the patient. Note: At least 10% of breast cancer is not imaged by mammography. Dictated by: Dictated on workstation # [id number]
== END ==
LOC: RAD 11:26
PROVIDERS: ATTEND Internal Medicine Hematology & Oncology
DX: Z12.31 Encounter for screening mammogram for malignant neoplasm of breast (principal); D64.9 Anemia, unspecified; D49.0 Neoplasm of unspecified behavior of digestive system; R11.2 Nausea with vomiting, unspecified; Z90.49 Acquired absence of other specified parts of digestive tract
CPT/HCPCS: 74177; 77067

== ENCOUNTER 2018-09-21 04:06 | Emergency (ER) | payer MEDICARE ==
[~2018-09-21] VITALS: Ht 167.6 cm; Wt 81.8 kg
[~2018-09-21 04:06] MED LIST changes: -HOLD METFORMIN - RECEIVED CONTRAST 20 ML VIAL IV SCH; -IOHEXOL 350 MG/ML 100 ML (OMNIPAQUE 350) VIAL IV ONE
[2018-09-21] MEDS ORDERED: RIVA20TA (04:22)
[2018-09-21] MEDS ORDERED: METO-387 (04:22)
[2018-09-21] MEDS ORDERED: fentaNYL INJECTION 100 MCG/2 ML AMP IVP STA (04:24)
[2018-09-21] MEDS ORDERED: NS IV 1000 ML 1,000 ML IV ONE (04:24)
[2018-09-21] MEDS ORDERED: ACETAMINOPHEN 500 MG TAB (TYLENOL) PO PRN (04:30)
[2018-09-21] MEDS ORDERED: ONDANSETRON 4 MG/2 ML (SDV) Z0FRAN IVP ONE (04:30)
--- NOTE | 2018-09-21 04:32 | ED General ---
General Chief Complaint: General Problems/Pain Stated Complaint: SOB,BACK PAIN, HAD IRON INFUSION EARLIER Source of Information: Patient, Family Exam Limitations: No Limitations History of Present Illness Date Seen by Provider: Sep 21, 2018 Time Seen by Provider: 04:11 Initial Comments Report of chills as well as shortness of air and low thoracic back pain bilaterally. States she has pain that is through her joints over her upper back and shoulders. Fever tonight. Onset last evening and worse until this morning. She did receive iron infusion yesterday for anemia. Did have previous transfusion on last hospitalization of I am and states that caused that, problems well. Denies upper respiratory symptoms but has had cough had some dysuria and frequency. Timing/Duration: 12-24 Hours Severity: Moderate Associated Systoms: No Chest Pain; Cough, Fever/Chills, Nausea/Vomiting, Shortness of Air, Weakness Allergies and Home Medications Allergies Coded Allergies: Beta-Blockers (Beta-Adrenergic Bloc (Unverified Allergy, Unknown, 11/20/12) atenolol (Verified Allergy, Unknown, 04/05/07) Home Medications Acetaminophen 500 Mg Tablet, 1,000 MG PO TID, (Reported) TAKES 2 (500MG) TABLETS Cholecalciferol (Vitamin D3) 1,000 Unit Capsule, 1,000 UNIT PO DAILY, (Reported) Diltiazem HCl 240 Mg Cap.er.24h, 240 MG PO HS, (Reported) Docusate Sodium 100 Mg Capsule, 1-2 CAP PO BID PRN for CONSTIPATION-1ST LINE, ( Reported) Fluticasone Propionate 16 Gm [place].susp, 2 SPRAYS NS DAILY PRN for ALLERGIES, ( Reported) Losartan Potassium 50 Mg Tablet, 50 MG PO HS, (Reported) Multivitamins with Iron 1 Each Tab.chew, 1 EACH PO DAILY Prescribed by: ANTHONY PERDOMO on 07/31/18 1854 Ondansetron HCl 4 Mg Tablet, 4 MG PO Q4H Prescribed by: ANTHONY PERDOMO on 08/02/18 1036 Pantoprazole Sodium 40 Mg Tablet.dr, 40 MG PO DAILY PRN for INDIGESTION, ( Reported) Propafenone HCl 225 Mg Cap, 225 MG PO 0800,1500,2100, (Reported) Rivaroxaban 20 Mg Tablet, 20 MG PO HS, (Reported) Sertraline HCl 50 Mg Tablet, 25 MG PO BID, (Reported) TAKES 1/2 (50MG) TABLET Patient Home Medication List Home Medication List Reviewed: Yes Review of Systems Review of Systems Constitutional: chills, fever, weakness EENTM: No nose congestion, No throat pain Respiratory: cough, short of breath Cardiovascular: No edema, No palpitations Gastrointestinal: abdominal pain (suprapubic), nausea; No vomiting Genitourinary: dysuria, frequency : No Musculoskeletal: back pain, joint pain, muscle pain Skin: no symptoms reported Psychiatric/Neurological: Anxiety, Weakness Hematologic/Lymphatic: Anemia All Other Systems Reviewed Negative Unless Noted: Yes Past Xjcnsbe-Ymnhad-Sypuxp Hx Past Med/Social Hx: Reviewed Nursing Past Med/Soc Hx Patient Social History Alcohol Use: Denies Use Number of Drinks Today: Alcohol Beverage of Choice: Wine Recreational Drug Use: No 2nd Hand Smoke Exposure: No Recent Foreign Travel: No Contact w/Someone Who Travel: No Recent Hopitalizations: No Immunizations Up To Date Tetanus Booster (TDap): Unknown PED Vaccines UTD: No Date of Pneumonia Vaccine: Mar 11, 2011 Date of Influenza Vaccine: May 04, 2018 Seasonal Allergies Seasonal Allergies: Yes Past Medical History Surgeries: Yes Abdominal, Appendectomy, Section, Gallbladder, 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, Neurological, Oophorectomy Respiratory: No Currently Using CPAP: No Currently Using BIPAP: No Cardiac: Yes (RBBB) Atrial Fibrillation, Heart Murmur, Hypertension, Valvular Heart Disease Neurological: Yes Headaches /Migraines, Neuropathy 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 Disorders: Yes (CERVICAL DYSPLASIA) Female 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 Disorders: Denies [employer] History: 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 Sexually Transmitted Disease: No HIV/AIDS: No Genitourinary: Yes (RENAL INSUFFICIENCY) Kidney Infection, Bladder Infection, Renal Failure Gastrointestinal: Yes Gastroesophageal Reflux, Gastrointestinal Bleed, Chronic Constipation, Hiatal Hernia, Gall Bladder Disease Musculoskeletal: Yes (KNEES, BACK, HIPS) Arthritis, Chronic Back Pain Endocrine: Yes Diabetes, Non-Insulin dep HEENT: No Loss of Vision: Denies Hearing Impairment: Denies Cancer: Yes Bone Did You Recieve Any Treatments: Yes What Type of Treatment Did You: Chemotherapy, Radiation, Surgical Intervention Psychosocial: Yes Anxiety Integumentary: No Blood Disorders: Yes (ANEMIA) Adverse Reaction/Blood Tranf: No Family Medical History Reviewed Nursing Family Hx Arthritis 19 MOTHER, Onset:30's - 40 (RA) Cardiovascular disease 19 MOTHER, Onset:40's - 50 Completed stroke 19 MOTHER, Onset:60 years & older Headache disorder 19 FATHER, Onset:Unknown (severe sinus headaches) Hypertension 19 MOTHER, Onset:50's - 60 Myocardial infarction 19 MOTHER, Onset:60 years & older Psychosocial problem 19 FATHER, Onset:Unknown No Family History of: AIDS Abdominal aortic aneurysm Sundeep's disease Alcoholism Alzheimer's disease Aphasia Asthma Cancer of mouth Cataracts Colon cancer Congenital disease Congenital heart disease Coronary thrombosis Cystic fibrosis Deafness or hearing loss Dementia Diabetes mellitus Drug abuse Dysphasia Fibrocystic disease of breast Gastroenteritis Glaucoma Hypercholesterolemia Infertility Kidney disease Neoplasm Not obtainable due to adoption Osteoporosis Parkinson's disease Prostate cancer Respiratory disorder Seizure disorder Severe allergy Thyroid disease Tuberculosis Visual disorder Heart Disease Physical Exam-Suspected Sepsis Physical Exam Vital Signs Vital Signs - First Documented 09/21/18 09/21/18 04:12 05:03 Temp 99.6 Pulse 94 Resp 18 B/P (MAP) 145/69 (94) Pulse Ox 100 O2 Delivery Room Air O2 Flow Rate 2.00 Capillary Refill : Height, Weight, BMI Height: 5'6.00" Weight: 180lbs. 4.0oz. [id number]; 30.5 BMI Method:Stated General Appearance: WD/WN, Chronically ill HEENT: PERRL/EOMI, Pharynx Normal Neck: Non Tender, Supple Respiratory: Lungs Clear, No Accessory Muscle Use Cardiovascular: Regular Rate, Rhythm, Systolic Murmur Gastrointestinal: Non Tender, Soft Extremity: Normal Capillary Refill, Normal Inspection, Normal Range of Motion, Non Tender Neurologic/Psychiatric: Alert, Oriented x3 Skin: normal color, warm/dry Focused Exam Lactate Level 09/21/18 04:35: Lactic Acid Level 0.89 Lactic Acid Level Laboratory Tests Test 09/21/18 04:35 Lactic Acid Level 0.89 MMOL/L (0.50-2.00) Progress/Results/Core Measures Suspected Sepsis SIRS Temperature: Pulse: Respiratory Rate: Laboratory Tests 09/21/18 04:35: White Blood Count 10.7 Blood Pressure / Mean: 09/21/18 04:35: Lactic Acid Level 0.89 Laboratory Tests 09/21/18 04:35: Creatinine 1.00, INR Comment 2.5H, Platelet Count 289, Total Bilirubin 0.5 Results/Orders Lab Results Laboratory Tests Test 09/21/18 04:35 09/21/18 05:30 Range/Units White Blood Count 10.7 4.3-11.0 10^3/uL Red Blood Count 3.17 L 4.35-5.85 10^6/uL Hemoglobin 8.1 L 11.5-16.0 G/DL Hematocrit 26 L 35-52 % Mean Corpuscular Volume 83 80-99 FL Mean Corpuscular Hemoglobin 26 25-34 PG Mean Corpuscular Hemoglobin Concent 31 L 32-36 G/DL Red Cell Distribution Width 20.1 H 10.0-14.5 % Platelet Count 289 130-400 10^3/uL Mean Platelet Volume 9.6 7.4-10.4 FL Neutrophils (%) (Auto) 90 H 42-75 % Lymphocytes (%) (Auto) 5 L 12-44 % Monocytes (%) (Auto) 5 0-12 % Eosinophils (%) (Auto) 0 0-10 % Basophils (%) (Auto) 0 0-10 % Neutrophils # (Auto) 9.6 H 1.8-7.8 X 10^3 Lymphocytes # (Auto) 0.5 L 1.0-4.0 X 10^3 Monocytes # (Auto) 0.5 0.0-1.0 X 10^3 Eosinophils # (Auto) 0.0 0.0-0.3 10^3/uL Basophils # (Auto) 0.0 0.0-0.1 10^3/uL Neutrophils % (Manual) 92 % Lymphocytes % (Manual) 3 % Monocytes % (Manual) 5 % Hypochromasia MODERATE Anisocytosis MODERATE Prothrombin Time 28.0 H 12.2-14.7 SEC INR Comment 2.5 H 0.8-1.4 Activated Partial Thromboplast Time 42 H 24-35 SEC Sodium Level 138 135-145 MMOL/L Potassium Level 4.1 3.6-5.0 MMOL/L Chloride Level 109 H 98-107 MMOL/L Carbon Dioxide Level 19 L 21-32 MMOL/L Anion Gap 10 5-14 MMOL/L Blood Urea Nitrogen 34 H 7-18 MG/DL Creatinine 1.00 0.60-1.30 MG/DL Estimat Glomerular Filtration Rate 55 BUN/Creatinine Ratio 34 Glucose Level 116 H 70-105 MG/DL Lactic Acid Level 0.89 0.50-2.00 MMOL/L Calcium Level 9.9 8.5-10.1 MG/DL Corrected Calcium 9.8 8.5-10.1 MG/DL Total Bilirubin 0.5 0.1-1.0 MG/DL Aspartate Amino Transf (AST/SGOT) 17 5-34 U/L Alanine Aminotransferase (ALT/SGPT) 17 0-55 U/L Alkaline Phosphatase 74 40-136 U/L Total Protein 7.5 6.4-8.2 GM/DL Albumin 4.1 3.2-4.5 GM/DL Urine Color YELLOW Urine Clarity CLEAR Urine pH 6 5-9 Urine Specific [place] 1.015 L 1.016-1.022 Urine Protein NEGATIVE NEGATIVE Urine Glucose (UA) NEGATIVE NEGATIVE Urine Ketones NEGATIVE NEGATIVE Urine Nitrite NEGATIVE NEGATIVE Urine Bilirubin NEGATIVE NEGATIVE Urine Urobilinogen NORMAL NORMAL MG/DL Urine Leukocyte Esterase NEGATIVE NEGATIVE Urine RBC (Auto) NEGATIVE NEGATIVE Urine RBC NONE /HPF Urine WBC NONE /HPF Urine Squamous Epithelial Cells RARE /HPF Urine Crystals NONE /LPF Urine Bacteria TRACE /HPF Urine Casts PRESENT /LPF Urine Hyaline Casts RARE /LPF Urine Mucus NEGATIVE /LPF Urine Culture Indicated CULTURE PENDING Micro Results Microbiology 09/21/18 Influenza Types A,B Antigen (EPHRAIM) - Final, Complete My Orders Orders - ENEIDA NOBLE MD Cbc With Automated Diff (09/21/18 04:24) Comprehensive Metabolic Panel (09/21/18 04:24) Blood Culture (09/21/18 04:24) Sputum Culture (09/21/18 04:24) Urinalysis (09/21/18 04:24) Urine Culture (09/21/18 04:24) Protime With Inr (09/21/18 04:24) Partial Thromboplastin Time (09/21/18 04:24) Chest 1 View, Ap/Pa Only (09/21/18 04:24) Acetaminophen Tablet (Tylenol Tablet) (09/21/18 04:30) Ed Iv/Invasive Line Start (09/21/18 04:24) Ed Iv/Invasive Line Start (09/21/18 04:24) Vital Signs Adult Sepsis Patie Q15M (09/21/18 04:24) O2 (09/21/18 04:24) Remove Rings In Anticipation O (09/21/18 04:24) Lactic Acid Analyzer (09/21/18 04:24) Influenza A And B Antigens (09/21/18 04:24) Straight Cath For Spec.-Adult (09/21/18 04:24) Ns Iv 1000 Ml (Sodium Chloride 0.9%) (09/21/18 04:24) Ondansetron Injection (Zofran Injectio (09/21/18 04:30) Fentanyl Injection (Sublimaze Injection (09/21/18 04:24) Manual Differential (09/21/18 04:35) Medications Given in ED Current Medications Medications Dose Ordered Sig/Larry Route Start Time Stop Time Status Last Admin Dose Admin Acetaminophen 1,000 mg ONCE PRN PO 09/21/18 04:30 09/21/18 04:53 DC 09/21/18 04:52 1,000 MG Ondansetron HCl 4 mg ONCE ONCE IVP 09/21/18 04:30 09/21/18 04:31 DC 09/21/18 04:52 4 MG Sodium Chloride 1,000 ml @ 0 mls/hr Q0M ONCE IV 09/21/18 04:24 09/21/18 04:28 DC 09/21/18 04:52 0 MLS/HR Vital Signs/I&O 09/21/18 09/21/18 09/21/18 09/21/18 04:12 04:52 04:52 05:03 Temp 99.6 99.1 99.6 Pulse 94 Resp 18 B/P (MAP) 145/69 (94) Pulse Ox 100 100 O2 Delivery Room Air Nasal Cannula O2 Flow Rate 2.00 Capillary Refill : Progress Note : Progress Note Seen and evaluated. IV, labs, blood cultures, chest x-ray, UA via straight catheter, normal saline 1 L bolus ordered. We will get a lactic acid as well. Monitor patient. 0510: Chest x-ray shows no acute findings. Monitor patient. 0610: Patient overall feeling better. No acute findings on any of the labs at this point. I would consider hypersensitivity reaction to the iron administration done yesterday as this is the second time she's had this reaction and the second time she has received iron. I will send a copy of the chart to Dr. Nicholas. Patient will follow-up with him as well to discuss further iron infusions. Discharged home with return precautions. Patient and family verbalize understanding instructions and agreement with plan. Diagnostic Imaging Diagonstic Imaging: Xray Plain Films/CT/US/NM/MRI: chest Comments No acute findings Reviewed: Reviewed by Me Departure Impression Primary Impression: Adverse reaction to drug Qualified Codes: T50.905A - Adverse effect of unspecified drugs, medicaments and biological substances, initial encounter Disposition: HOME, SELF-CARE Condition: Improved Departure-Patient Inst. Decision time for Depature: 06:14 Referrals: ANTHONY PERDOMO DO (PCP/Family) Primary Care Physician Patient Instructions: Adverse Drug Reactions, Adult (DC) Add. Discharge Instructions: All discharge instructions reviewed with patient and/or family. Voiced understanding. Continue medications as previously prescribed. You may take the nausea medicine one every 4-6 hours as needed for nausea or vomiting. Clear liquid or light diet for the next 12 hours and then advance as tolerated. Follow-up with Dr. Parker regarding the iron infusion on Sunday. Return for worse pain, fever, vomiting, weakness, breathing problems or other concerns as needed. Copy Copies To 1: ZULMA PARKER TIMOTHY D MD Sep 21, 2018 04:32
[2018-09-21 05:08] LABS: BASOPHILS % (AUTO) 0 % (0-10); EOSINOPHILS % (AUTO) 0 % (0-10); HEMATOCRIT 26 % (35-52); HEMOGLOBIN 8.1 G/DL (11.5-16.0); LYMPHOCYTES # (AUTO) 0.5 X 10^3 (1.0-4.0); LYMPHOCYTES % (AUTO) 5 % (12-44); MEAN CORPUSCULAR HEMOGLOBIN 26 PG (25-34); MEAN CORPUSCULAR HGB CONC 31 G/DL (32-36); MEAN CORPUSCULAR VOLUME 83 FL (80-99); MEAN PLATELET VOLUME 9.6 FL (7.4-10.4); MONOCYTES # (AUTO) 0.5 X 10^3 (0.0-1.0); MONOCYTES % (AUTO) 5 % (0-12); NEUTROPHILS # (AUTO) 9.6 X 10^3 (1.8-7.8); NEUTROPHILS % (AUTO) 90 % (42-75); PLATELET COUNT 289 10^3/uL (130-400); RED CELL DISTRIBUTION WIDTH 20.1 % (10.0-14.5); WHITE BLOOD COUNT 10.7 10^3/uL (4.3-11.0)
[2018-09-21 05:17] LABS: INR 2.5 (0.8-1.4)
[2018-09-21 05:25] LABS: ALBUMIN 4.1 GM/DL (3.2-4.5); BILIRUBIN,TOTAL 0.5 MG/DL (0.1-1.0); CALCIUM 9.9 MG/DL (8.5-10.1); POTASSIUM 4.1 MMOL/L (3.6-5.0); TOTAL PROTEIN 7.5 GM/DL (6.4-8.2)
[2018-09-21 05:41] LABS: BILIRUBIN,URINE NEGATIVE (NEGATIVE); CLARITY,URINE CLEAR; COLOR,URINE YELLOW; GLUCOSE, URINE (UA) NEGATIVE (NEGATIVE); KETONES,URINE NEGATIVE (NEGATIVE); LEUKOCYTE ESTERASE ,URINE NEGATIVE (NEGATIVE); NITRITE,URINE NEGATIVE (NEGATIVE); PH,URINE 6 (5-9); PROTEIN,URINE NEGATIVE (NEGATIVE); UROBILINOGEN,URINE NORMAL (NORMAL)
[2018-09-21 05:53] LABS: BACTERIA,URINE TRACE /HPF; HYALINE CASTS, URINE RARE /LPF; SQUAMOUS EPITHELIAL CELL,UR RARE /HPF
[2018-09-21 05:54] LABS: ANISOCYTOSIS MODERATE; HYPOCHROMASIA MODERATE; LYMPHOCYTES % (MANUAL) 3 %; MONOCYTES % (MANUAL) 5 %; NEUTROPHILS % (MANUAL) 92 %
[2018-09-21] MEDS ORDERED: RX-ONDANSETRON 4 MG ODT (ZOFRAN) PPK #4 PO ONE (06:15)
--- NOTE | 2018-09-21 06:15 | Diagnostic Imaging Report ---
Clinical indication: Patient with shortness of air. Exam: Portable chest x-ray upright view. Comparisons: Chest x-ray dated 09/03/2017. Findings: Lungs/pleura: Lungs are clear. There is no pneumothorax. There is no pleural effusion. Mediastinum: Unremarkable. Pulmonary vasculature: Unremarkable. Heart: Unremarkable. Bones/extrathoracic soft tissue: Unremarkable. Impression: There is no radiographic evidence of acute cardiopulmonary process. Dictated by: Dictated on workstation # [id number]
[2018-09-21 06:30] VITALS: BP 127/65
== END 2018-09-21 06:37 | disposition home or self-care (01) ==
LOC: EDUNIT# 04:06 → ER 04:08
DX: R06.02 Shortness of breath (principal); M54.6 Pain in thoracic spine; T50.905A Adverse effect of unspecified drugs, medicaments and biological substances, initial encounter; D64.9 Anemia, unspecified; I48.91 Unspecified atrial fibrillation; I10 Essential (primary) hypertension; I25.2 Old myocardial infarction; G43.909 Migraine, unspecified, not intractable, without status migrainosus; K21.9 Gastro-esophageal reflux disease without esophagitis; E11.40 Type 2 diabetes mellitus with diabetic neuropathy, unspecified; F41.9 Anxiety disorder, unspecified; Z85.830 Personal history of malignant neoplasm of bone; Z92.21 Personal history of antineoplastic chemotherapy; Z87.19 Personal history of other diseases of the digestive system; Z82.49 Family history of ischemic heart disease and other diseases of the circulatory system; Z87.448 Personal history of other diseases of urinary system; Z79.51 Long term (current) use of inhaled steroids; Z88.8 Allergy status to other drugs, medicaments and biological substances; Z79.01 Long term (current) use of anticoagulants; Z98.890 Other specified postprocedural states; Z90.49 Acquired absence of other specified parts of digestive tract; Z90.710 Acquired absence of both cervix and uterus
CPT/HCPCS: 36415; 51701; 71045; 80053; 81000; 83605; 85007; 85027; 85610; 85730; 87040; 87088; 87804

== ENCOUNTER 2018-09-21 13:54 | Inpatient (IN) | payer MEDICARE | END 2018-10-07 10:45 | disposition other institution (70) | LOC: 4TH 09-23 10:27 → ICU 09-26 14:03 → 4TH 09-27 14:32 → ICU 09-30 02:35 → 4TH 10-01 16:59 → ICU 10-02 11:00 → 4TH 10-04 10:32 → ER 13:54 → 4TH 10-04 13:59 | DX: R78.81 Bacteremia (principal); B95.4 Other streptococcus as the cause of diseases classified elsewhere; R51 Headache; I38 Endocarditis, valve unspecified; K21.9 Gastro-esophageal reflux disease without esophagitis; D50.9 Iron deficiency anemia, unspecified; R50.9 Fever, unspecified; I48.0 Paroxysmal atrial fibrillation; K59.09 Other constipation; R01.1 Cardiac murmur, unspecified; J30.2 Other seasonal allergic rhinitis; I10 Essential (primary) hypertension; N28.9 Disorder of kidney and ureter, unspecified; E11.40 Type 2 diabetes mellitus with diabetic neuropathy, unspecified; G43.909 Migraine, unspecified, not intractable, without status migrainosus; R11.0 Nausea; M19.91 Primary osteoarthritis, unspecified site; M47.896 Other spondylosis, lumbar region; F41.9 Anxiety disorder, unspecified; Z79.01 Long term (current) use of anticoagulants; Z85.830 Personal history of malignant neoplasm of bone; Z92.3 Personal history of irradiation; Z92.21 Personal history of antineoplastic chemotherapy ==

== ENCOUNTER 2018-10-07 09:34 | Inpatient (IN) | payer MEDICARE ==
[~2018-10-07] VITALS: Ht 165.1 cm; Wt 72.9 kg
[~2018-10-07 09:34] MED LIST changes: +METO-387; +RIVA20TA
--- NOTE | 2018-10-07 10:55 | NUR ---
Admitted to room 222, with an admitting diagnosis of myopathy, on 10-07-2018 from 4th floor via , accompanied by .PRANAV SMITH introduced to surroundings, call light, bed controls, phone, TV, temperature control, lights, meal times, smoking policy, visitor policy, side rail policy, bathrooms and showers. Patient Rights given to patient in the handbook.PRANAV SMITH verbalizes understanding that [facility] is not responsible for the loss or damage to any personal effects or valuables that are kept in the patients posession during their hospitalization. The following Patient Care Plans were discussed with the : Discharge Planning, ,, and . PRANAV SIMTH verbalizes understanding of Interdisciplinary Patient Education. Patient and/or family were informed about the Rapid Response Team and its purpose. Patient received Patient Rights Booklet, which includes Privacy Act Statement and Data Collection Information Summary.
[2018-10-07 11:15] VITALS: BP 114/63
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
[2018-10-07] MEDS ORDERED: HYDROcodone/APAP 5 MG/325 MG (LORTAB) TAB ONE (12:23)
[2018-10-07] MEDS ORDERED: ONDANSETRON 4 MG (ZOFRAN) ORAL DISSOLVE TAB ONE (12:24)
[2018-10-07] MEDS ORDERED: RIVA20TA PO ×2 (12:52)
--- NOTE | 2018-10-07 12:54 | NUR ---
REVIEWED MED REC IT WAS REPORTED UPON ADMISSION TO 4TH FLOOR. NOTE THE FOLLOWING CHANGES WERE MADE WHEN THE PATIENT WAS DISCHARGED TO REHAB THAT ARE NOT CURRENTLY ON THE MED REC: STOP TAKING: XARELTO 20MG HS
[2018-10-07] MEDS ORDERED: ACETAMINOPHEN 650 MG SUPP (TYLENOL) PR PRN (13:00)
[2018-10-07] MEDS ORDERED: FLEET ENEMA ADULT 1 EA BTL PR PRN (13:00)
[2018-10-07] MEDS ORDERED: ALPRAZolam 0.25 MG (XANAX) TAB PO PRN (13:00)
[2018-10-07] MEDS ORDERED: fentaNYL INJECTION 100 MCG/2 ML AMP IVP PRN (13:00)
--- NOTE | 2018-10-07 14:32 | ST Cognitive Linguistic Eval ---
Speech Evaluation-General Medical Diagnosis weakness Onset Date: Oct 07, 2018 Therapy Diagnosis Therapy Diagnosis: Cognitive-communication Precautions Precautions/Isolations: Standard Precautions Referral Referring Physician: Dr. Parker Medical History Pertinent Medical History: Atrial Fib, DM, GERD Reviewed History: Yes Social History Current Living Status: Alone Speech PLF-Current Status Prior Level of Function The patient lived alone with family near for support as needed. Subjective The patient was pleasant and cooperative with the evaluation process. Language Eval: Auditory Comprehends Simple Yes/No Ques: Functional Indent/Objects Multiple [place]: Functional Ident/Pics in Multiple [place]: Functional Follows 1-Step Commands: Functional Follows Complex Directions: Functional Follows General Conversations: Functional Language Eval: Verbal Language Completes Spontaneous Greeting: Functional Produces Auto, Serial Info: Functional Imitates Simple Words/Phrases: Functional Word Finding: Functional Requests Basic Needs: Functional States Basic Personal Info: Functional Expresses Complex Ideas: Functional Objective Cognitive Domain Attention: WNL Memory: WNL Problem Solving: Functional Executive Functions: WNL Visuospatial Skills: WNL Composite Severity Rating: WNL Clock Drawing Severity Rating: WNL Objective Formal/Standardized Tests Mauro Cognitive Assessment (MOCA) Results Visuospatial/Executive: 5/5, Namin/3, Memory: Immediate 5/5, Delayed with cues 4/5, Attention: 6/6, Language: 3/3, Abstraction: 2/2, Orientation: 6/6 Oral Motor/Speech Production Within Functional Limits Impression The patient is a pleasant 68 year old female who was admitted to the ARU due to weakness. The patient has had multiple back surgeries secondary to CA. She was pleasant during the evaluation process. She was presented the MOCA with normal limits for all areas assessed. At this time she does not require skilled ST services. Communication/Social Cognition Comprehension: 7 Expression: 7 Social Interaction: 7 Problem Solvin Memory: 7 Speech Patient Assess Expression of Ideas/Wants: Expression (4) Understanding Verbal Content: Understands (4) Brief Interview-Mental Status: Yes Repetition of Three Words: Three (3) Temporal Orientation: Year: Correct (3) Temporal Orientation: Month: Accurate within 5 days(2) Temporal Orientation: Day: Correct (1) Recall : Wear to say "Sock": Yes, no cue required (2) Recall : Color: Yes, after cueing (1) Recall : Bed: Yes, no cue required (2) Memory/Recall Ability: Current season, That he or she is in a hsp/hsp unit Speech-Plan Patient/Family Goals Patient/Family Goals: The patient plans on returning home post rehab with home health services if available. Treatment Plan Speech Therapy Treatment Plan: Discontinue ST The patient does not require skilled ST services at this time. Treatment Duration: Oct 07, 2018 Frequency: 1 time per week Estimated Hrs Per Day: .25 hour per day Rehab Potential: Good Barriers to Learning: None identified Pt/Family Agrees to Plan: Yes Safety Risks/Education Teaching Recipient: Patient Teaching Methods: Discussion Response to Teaching: Verbalize Understanding Education Topics Provided: Safety within her room Time Speech Therapy Time In: 13:30 Speech Therapy Time Out: 13:45 Total Billed Time: 15 Billed Treatment Time 1, NESTOR Hammonds Oct 07, 2018 14:32
--- NOTE | 2018-10-07 14:46 | Physical Therapy Daily Note ---
PT Daily Note-Current Subjective Pt sitting up in recliner upon arrival. Pt agrees to PT. Pain Numeric Pain Scale: 5-Moderate Pain Location: Left Location Body Site: Knee Pain Description: Ache, Tightness Comment: Pt reports swelling on B feet. Mental Status Patient Orientation: Person, Place, Time, Situation Transfers Therapy Code Descriptions/Definitions Functional [place] Measure: 0=Not Assessed/NA 4=Minimal Assistance 1=Total Assistance 5=Supervision or Setup 2=Maximal Assistance 6=Modified [place] 3=Moderate Assistance 7=Complete [place] Therapy Quality Codes: 6 Independent with activity with or without an assistive device 5 Patient requires set up or clean up by helper. Patient completes activity by themselves 4 Supervision or touching assist (CGA). [place] provide cues , steadying assist 3 The helper provides less than half the effort to complete the activity 2 The helper provides more than half the effort to complete the activity 1 Dependent. The helper does all the effort to complete an activity 7 Patient refused to complete or attempt activity 9 The patient did not perform the activity before the current illness or injury 88 Not attempted due to Medical conditions or safety concerns Weight Bearing Right Lower Extremity: Right Full Weight Bearing Left Lower Extremity: Left Full Weight Bearing Exercises Supine Ex: Ankle pumps, Quad Set, Glut sets, Heel Slides, Straight leg raise, Hip abd/add Supine Reps: 10 Treatments Pt completes Supine Ex in recliner with VC from LIC[employer]ED ELECTRICIAN. Pt & LICENSED ELECTRICIAN discuss ARU Expectations, benefits to Therapy & what to work on & progress/plan for ARU stay. Pt resting at end of tx with all needs met. Assessment Current Status: Good Progress Pt tolerated tx well, has many questions (little anxious). LICENSED ELECTRICIAN reassures pt & answers questions for pt ed. PT Short Term Goals Short Term Goals Time Frame: October 14, 2018 Transfers (B,C,W/C) (FIM): 4 Gait (FIM): 2 Distance (FIM): 5=893-38 ft Gait Assistive Device: FWW PT Marking Machine Tender Goals Marking Machine Tender Goals PT Care Home Goals Time Frame: October 25, 2018 Transfers (B,C,W/C) (FIM): 7 Sit to Lying (QC): 6 Lying-Sitting on Side/Bed(QC): 6 Sit to Stand (QC): 6 Roll Left to Right (QC): 6 Chair/[id number] Xfer(QC): 6 Car Transfer (QC): 6 Does the Patient Walk: Yes Gait (FIM): 6 Gait distance (FIM): 3=150 ft Walk 10 feet (QC): 6 Walk 10ft-Uneven Surface(QC): 5 Walk 50ft with 2 Turns (QC): 6 Walk 150 ft (QC): 6 Gait Assistive Device: FWW Does the Pt use WC or Scooter?: No Stairs (FIM): 2 # of Steps: 1 1 Step (curb) (QC): 6 4 Steps (QC): 88 12 Steps (QC): 88 Picking up an Object (QC): 88 PT Plan Problem List Problem List: Activity Tolerance, Functional Strength, Safety, Balance, Gait, Transfer Treatment/Plan Treatment Plan: Continue Plan of Care Treatment Plan: Bed Mobility, Education, Functional Activity Rafia, Functional Strength, Group Therapy, Gait, Safety, Therapeutic Exercise, Transfers Treatment Duration: October 25, 2018 Frequency: At least 5 of 7 days/Wk (IRF) Estimated Hrs Per Day: 1.5 hours per day Patient and/or Family Agrees t: Yes Safety Risks/Education Patient Education: Transfer Techniques, Correct Positioning, Safety Issues Teaching Recipient: Patient Teaching Methods: Discussion Response to Teaching: Verbalize Understanding Time/GCodes Time In: 1400 Time Out: 1430 Total Billed Treatment Time: 30 Total Billed Treatment 1, EX (20m) & FA (10m) G Codes Necessary: SINGH Jeffries LIC[employer]ED ELECTRICIAN Oct 07, 2018 14:46
--- NOTE | 2018-10-07 16:04 | Occupational Therapy Eval ---
OT Evaluation-General/PLF Medical Diagnosis Admission Date Oct 07, 2018 at 10:45 Medical Diagnosis: Myopathy Onset Date: Oct 07, 2018 Therapy Diagnosis Therapy Diagnosis: Weakness Height/Weight Height (Feet): 5 Height (Inches): 6.00 Weight (Pounds): 189 Weight (Ounces): 4.0 Precautions Precautions/Isolations: Standard Precautions Weight Bear Status Weight Bearing Restriction: Weight Bearing/Tolerated Referral Physician: Keith Referral Reason: Activity Tolerance, Self Care, Evaluation/Treatment, Strengthening/ROM Medical History Pertinent Medical History: Atrial Fib, DM, GERD Additional Medical History 3 surgeries in lumbar spine, 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 came to ER with fever. States that she thought she was having reaction to iron infusion. Reviewed History: Yes Social History Home: Apartment Current Living Status: Alone Entry Into Home: Level Entry (curb step at some locations) ADL-Prior Level of Function Therapy Code Descriptions/Definitions Functional [place] Measure: 0=Not Assessed/NA 4=Minimal Assistance 1=Total Assistance 5=Supervision or Setup 2=Maximal Assistance 6=Modified [place] 3=Moderate Assistance 7=Complete [place] Therapy Quality Codes: 6 Independent with activity with or without an assistive device 5 Patient requires set up or clean up by helper. Patient completes activity by themselves 4 Supervision or touching assist (CGA). [place] provide cues , steadying assist 3 The helper provides less than half the effort to complete the activity 2 The helper provides more than half the effort to complete the activity 1 Dependent. The helper does all the effort to complete an activity 7 Patient refused to complete or attempt activity 9 The patient did not perform the activity before the current illness or injury 88 Not attempted due to Medical conditions or safety concerns Functional Abilities and Goals: Independent: Patient completed the activities by him/herself, with or without an assistive device, with no assistance from a helper. Needed Some Help: Patient needed partial assistance from another person to complete activities. Dependent: A helper completed the activities for the patient. Unknown: Not Applicable: ADL PLOF Comments Pt. 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 Able to bathe and dress independently. States that she still drives. Self Care: Independent Functional Cognition: Independent DME/Equipment: Bath Bench, Tub/Shower DME/Equipment Comments Pt. has cane and walker. Occupation: [employer] at [employer] Drive Self: Yes OT Current Status Subjective Pt. does not report pain, but states that she is tired. Appearance Pt. up in chair. Agrees to work with OT. Mental Status/Objective Patient Orientation: Person, Place, Time, Situation Current Hand Dominance: Right Upper Extremity ROM WFL Upper Extremity Strength right- 3/5 overall left- 3+/5 overall ADL-Treatment Grooming (FIM): 5 (Set up at chair to brush hair and teeth.) Oral Hygiene (QC): 5 Bathing (FIM): 4 (Pt. is able to wash most parts seated in chair. Does stand with assist and requires assist for balance while washing ping area.) Shower/Bathe Self (QC): 4 Lower Body Dressing (FIM): 4 (Pt. able to doff/don slipper socks. Able to don brief over feet and up to hips, but requires assistance to don over hips.) Lower Body Dressing (QC): 4 On/Off Footwear (QC): 4 Toileting (FIM): 1 (Pt was incontinent of urine while seated in chair.) Toileting Hygiene (QC): 1 Transfers (B, C, W/C) (FIM): 3 (Mod assist sit-stand.) Toilet/Commode Transfer (FIM): 3 Toilet Transfer (QC): 3 Other Treatments Pt. declines showering. States that she is tired at this time. Agrees to sponge bathe while up in chair. Pt. does well with increased time and rest breaks. Pt. tolerates treatment well. No street clothing available at this time so pt. dons fresh hospital gown, brief, and fresh slipper socks. All needs met up in chair after treatment. Education OT Patient Education: Correct positioning, Modified ADL techniques, Progress toward Goal/Update tx plan, Purpose of tx/functional activities, Reviewed precautions, Rehab process, Transfer techniques Teaching Recipient: Patient Teaching Methods: Demonstration, Discussion Response to Teaching: Verbalize Understanding, Return Demonstration OT Short Term Goals Short Term Goals Time Frame: October 21, 2018 Eating(FIM): 5 Grooming(FIM): 5 Bathing(FIM): 5 Upper Body Dressing(FIM): 5 Lower Body Dressing(FIM): 5 Toileting(FIM): 5 Transfers (B,C,W/C) (FIM): 5 Toilet/Commode Transfer(FIM): 5 Shower Transfer(FIM): 4 Additional Short Term Goals: 1-Demonstrate ADL Tasks, 2-Verbalize Understanding , 3-ImproveStrength/Rafia 1=Demonstrate adherence to instructed precautions during ADL tasks. 2=Patient will verbalize/demonstrate understanding of assistive devices/ modifications for ADL. 3=Patient will improve strength/tolerance for activity to enable patient to perform ADL's. OT Correction Goals Correction Goals Time Frame: November 04, 2018 Eating (FIM): 6 Eating (QC): 6 Groomin Oral Hygiene (QC): 6 Bathing(FIM): 5 Shower/Bathe Self (QC): 5 Upper Body Dressing(FIM): 6 Upper Body Dressing (QC): 6 Lower Body Dressing(FIM): 6 Lower Body Dressing (QC): 6 On/Off Footwear (QC): 6 Toileting(FIM): 6 Toileting Hygiene (QC): 6 Transfers (B,C,W/C) (FIM): 6 Toilet/Commode Transfer(FIM): 6 Toilet/Commode Transfer (QC): 6 Shower Transfer(FIM): 5 Additional Goals: 1-Demonstrate ADL Tasks, 2-Verbalize Understanding, 3- ImproveStrength/Rafia 1=Demonstrate adherence to instructed precautions during ADL tasks. 2=Patient will verbalize/demonstrate understanding of assistive devices/ modifications for ADL. 3=Patient will improve strength/tolerance for activity to enable patient to perform ADL's. OT Education/Plan Problem List/Assessment Assessment: Decreased Activ Tolerance, Decreased UE Strength, Dependent Transfers, Impaired Bed Mobility, Impaired Funct Balance, Impaired I ADL's, Impaired Self-Care Skills Discharge Recommendations Plan/Recommendations: Continue POC Therapy D/C Recommendations: Home w/ Family Support, Occupational Therapy Home Care Comment To be determined. Treatment Plan/Plan of Care Treatment,Training & Education: Yes Patient would benefit from OT for education, treatment and training to promote independence in ADL's, mobility, safety and/or upper extremity function for ADL' s. Plan of Care: ADL Retraining, Functional Mobility, Group Exercise/Act as Ind, UE Funct Exercise/Act Treatment Duration: November 04, 2018 Frequency: At least 5 of 7 days/Wk (IRF) Estimated Hrs Per Day: 1.5 hours per day Agreement: Yes Rehab Potential: Good Time/GCodes Start Time: 12:15 Stop Time: 13:30 Total Time Billed (hr/min): 75 Billed Treatment Time 1, EVH x 15minutes, ADL x 45minutes, Ex x 15minutes SADE YATES OT Oct 07, 2018 16:03
[2018-10-07] MEDS: BETHANECHOL 25 MG (URECHOLINE) TAB PO SCH ×2 (16:56→21:50)
[2018-10-07] MEDS: TAMSULOSIN 0.4 MG (FLOMAX) CAP PO SCH (16:57)
--- NOTE | 2018-10-07 17:44 | PM&R H&P / Post Admit Assess ---
History of Present Illness HPI/Chief Complaint Chief complaint: Myopathy with debility. HPI: This is a 68[address] 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 Pt has also had some urinary retention, Dr. Greco has been consulted and recommended self caths once a day with bladder scanning as needed and due to all of the 14 days of hospital stay she has become very debilitated and prior level of functioning was independent with use of a cane and now she can only take a few steps to go to the toilet. She did have a low grade fever today, sepsis workup with laboratory was ordered by Dr. Mcfarland to assess for any type of sepsis but we will continue the workup with Dr. Sahu's help along with Dr. Mcfarland, Dr. Cheng and Dr. Greco while she is on the inpatient rehab unit prior to discharge home to live independently. Source: patient Exam Limitations: no limitations Date Seen 10/07/18 Time Seen by a Provider: 11:00 Attending Physician Erna Marshall DO PCP Joyce Sahu DO Referring Physician Date of Admission Oct 07, 2018 at 10:45 Home Medications & Allergies Home Medications Reviewed patient Home Medication Reconciliation performed by pharmacy medication reconciliations hydrology technician and/or nursing. Patients Allergies have been reviewed. Allergies Allergies Coded Allergies Beta-Blockers (Beta-Adrenergic Bloc (Unverified Allergy, Unknown, 11/20/12) atenolol (Verified Allergy, Unknown, 09/21/18) Past Chxfryh-Lkvfdy-Yjngyw Hx Past Med/Social Hx: Reviewed Nursing Past Med/Soc Hx, Reviewed and Corrections made Patient Social History Marrital Status: single Employed/Student: retired Alcohol Use: Denies Use Number of Drinks Today: Alcohol Beverage of Choice: Wine Recreational Drug Use: No Smoking Status: Never a Smoker 2nd Hand Smoke Exposure: No Physical Abuse Screen: No Sexual Abuse: No Recent Foreign Travel: No Contact w/other who traveled: No Recent Hopitalizations: No Recent Infectious Disease Expo: No Immunizations Up To Date Tetanus Booster (TDap): Unknown Pediatric: No Date of Pneumonia Vaccine: Jan 21, 2017 Date of Influenza Vaccine: May 04, 2018 Seasonal Allergies Seasonal Allergies: Yes Past Medical History Surgeries: Abdominal, Appendectomy, Section, Gallbladder, 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 , Neurological, Oophorectomy, Orthopedic Currently Using CPAP: No Currently Using BIPAP: No Cardiac: Atrial Fibrillation, Heart Murmur, Hypertension, Valvular Heart Disease Neurological: Headaches /Migraines, Neuropathy 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: Yes (CERVICAL DYSPLASIA) Sexually Transmitted Disease: No HIV/AIDS: No Female 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 Disorders: Denies 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 Genitourinary: Kidney Infection, Bladder Infection, Renal Failure Gastrointestinal: Gastroesophageal Reflux, Gastrointestinal Bleed, Chronic Constipation, Hiatal Hernia, Gall Bladder Disease Musculoskeletal: Arthritis, Chronic Back Pain Endocrine: Diabetes, Non-Insulin dep Loss of Vision: Denies Hearing Impairment: Denies Cancer: Bone Did You Recieve Any Treatments: Yes What Type of Treatment Did You: Chemotherapy, Radiation, Surgical Intervention Psychosocial: Anxiety History of Blood Disorders: Yes (ANEMIA) Adverse Reaction to Blood [place]: No Family History Arthritis 19 MOTHER, Onset:30's - 40 (RA) Cardiovascular disease 19 MOTHER, Onset:40's - 50 Completed stroke 19 MOTHER, Onset:60 years & older Headache disorder 19 FATHER, Onset:Unknown (severe sinus headaches) Hypertension 19 MOTHER, Onset:50's - 60 Myocardial infarction 19 MOTHER, Onset:60 years & older Psychosocial problem 19 FATHER, Onset:Unknown No Family History of: AIDS Abdominal aortic aneurysm [place]'s disease Alcoholism Alzheimer's disease Aphasia Asthma Cancer of mouth Cataracts Colon cancer Congenital disease Congenital heart disease Coronary thrombosis Cystic fibrosis Deafness or hearing loss Dementia Diabetes mellitus Drug abuse Dysphasia Fibrocystic disease of breast Gastroenteritis Glaucoma Hypercholesterolemia Infertility Kidney disease Neoplasm Not obtainable due to adoption Osteoporosis Parkinson's disease Prostate cancer Respiratory disorder Seizure disorder Severe allergy Thyroid disease Tuberculosis Visual disorder Heart Disease Review of Systems Constitutional: see HPI, dizziness, fever, malaise, weakness EENTM: no symptoms reported Respiratory: no symptoms reported Cardiovascular: no symptoms reported Gastrointestinal: no symptoms reported Genitourinary: other (retention) Musculoskeletal: back pain, joint pain, muscle pain, muscle stiffness Skin: no symptoms reported Psychiatric/Neurological: Anxiety, Depressed All Other Systems Reviewed Negative Unless Noted: Yes Physical Exam Exam Vital Signs Vital Signs Date Time Temp Pulse Resp B/P (MAP) Pulse Ox O2 Delivery O2 Flow Rate FiO2 10/07/18 15:22 Room Air 10/07/18 12:52 82 10/07/18 11:15 98.3 20 114/63 (80) 98 Capillary Refill : General Appearance: No Apparent Distress, WD/WN, Chronically ill, Other ( debilitated, fatigued) HEENT: PERRL/EOMI, Normal ENT Inspection, Pharynx Normal, Moist Mucous Membranes Neck: Full Range of Motion, Normal Inspection, Non Tender, Supple Respiratory: Chest Non Tender, Lungs Clear, Normal Breath Sounds, No Accessory Muscle Use, No Respiratory Distress Cardiovascular: No Edema, No Gallop, No JVD, Normal Peripheral Pulses, Systolic Murmur, Irregularly Irregular Gastrointestinal: Normal Bowel Sounds, No Organomegaly, No Pulsatile Mass, Non Tender, Soft Back: Normal Inspection, No CVA Tenderness, No Vertebral Tenderness Extremity: Normal Capillary Refill, Normal Inspection, Normal Range of Motion, Non Tender, No Calf Tenderness, No Pedal Edema Neurologic/Psychiatric: Alert, Oriented x3, Normal Mood/Affect, Motor Weakness (generalized strength decreased 3/5-4/5 all extremities) Skin: Normal Color, Warm/Dry Lymphatic: No Adenopathy Results Results/Procedures Labs Patient resulted labs reviewed. Assessment/Plan Assessment and Plan Assess & Plan/Chief Complaint Assessment: 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 Plan: IRF protocols Home meds Pain meds Dr Greco appreciated Self caths and bladder scan prn daily BM regimen Appreciate Dr Mcfarland and Dr Greco and Dr Sahu Monitor labs Anticoagulation once no longer a risk for bleeding (1) Myopathy (2) Urinary retention (3) Self-catheterizes urinary bladder (4) Debility (5) Atrial fibrillation with rapid ventricular response (6) Leg weakness (7) Transfusion of blood during current hospitalization (8) Edema (9) Fever (10) Anticoagulant long-term use (11) Cancer of spinal column (12) GERD (gastroesophageal reflux disease) (13) Cardiac murmur (14) Anemia (15) Iron deficiency (16) Bacteremia due to Streptococcus (17) UTI (urinary tract infection) (18) Late eff nerv injury trnk NEC (19) Depression (20) Dyspnea (21) Chronic constipation (22) Dizziness (23) GI bleed Post Admission Physician Asses Date seen by provider: Oct 07, 2018 Time seen by provider: 11:00 Admisison Dx: (1) Myopathy (2) Atrial fibrillation with rapid ventricular response Status: Acute (3) Palpitations Status: Acute (4) Nausea Status: Acute (5) Headache Status: Acute (6) Atrial fibrillation Status: Chronic (7) Iron deficiency Status: Chronic (8) Fever Status: Acute (9) Urinary retention (10) Anemia Status: Chronic (11) Depression Status: Chronic (12) Dyspnea Status: Acute (13) Edema Status: Acute (14) Cardiac murmur Status: Chronic (15) UTI (urinary tract infection) (16) GERD (gastroesophageal reflux disease) Status: Chronic (17) Cancer of spinal column Status: Chronic (18) Debility Status: Acute (19) 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 (20) Leg weakness Status: Acute (21) Anticoagulant long-term use Status: Chronic (22) Atrial fibrillation with rapid ventricular response Status: Chronic (23) Transfusion of blood during current hospitalization Status: Acute (24) Self-catheterizes urinary bladder Status: Acute (25) Bacteremia due to Streptococcus Status: Acute The preadmission screen agrees with the post admission assessment that the patient is a good candidate for inpatient rehabilitation. The patient will have a comprehensive program of inpatient rehabilitation with a goal of maximizing level of functional independence prior to discharge home alone. The patient will have PT/OT ninety minutes per day, each discipline, five days a week for gait, strengthening, conditioning, balance, ADLs, any patient/family/caregiver training as necessary. Speech therapy to do cognitive assessment and treat as indicated. Rehabilitation nursing to assist with bowel, bladder, skin, wound care, medication administration, pain management. Drier Unloader to assist with discharge planning, community reentry. SCD's for DVT prophylaxis. She appears to be well motivated to participate in three hours of therapy a day. She should be able to tolerate three hours of therapy a day from a medical standpoint. She should benefit from the three hours of therapy a day. She has a reasonable discharge plan, reasonable discharge rehabilitation goals and a supportive family. She has various comorbidities that need to be closely monitored with medications and treatments adjusted on a daily basis as needed. These include: see list Barriers to discharge for this patient who had been independent prior to this are for her to be modified independent to supervision for ADLs and mobility skills prior to discharge home with [family], so as to lessen the burden of the caregivers. Risks for this patient include: 1. Fall 2. Fracture 3. DVT 4. Pulmonary embolism 5. Wound infection 6. Skin breakdown 7. Contractures 8. Poorly controlled pain 9. Urinary retention 10. UTI 11. Respiratory infection 12. Aspiration Estimated Length of Stay: 14 days Prognosis: Rehab prognosis appears good for goal of discharge home modified independent to supervision for ADLs and mobility skills. ERNA MARSHALL DO Oct 07, 2018 17:44
[2018-10-07 20:00] VITALS: BP 157/77
--- NOTE | 2018-10-07 20:03 | Individualized Plan of Care ---
Individualized Plan of Care Rehab Nursing IPOC Order Admission Date Oct 07, 2018 at 10:45 Current Orders Orders Admission Order(Inpt,Obs,Sdc) (10/07/18 09:40) Vital Signs: Per Unit Policy ( 08,16,00 (10/07/18 09:40) Agile Scrum Coach-Inpt Rehab Con (10/07/18 09:40) Rehab Nursing Orders-Ipoc (10/07/18 09:40) Physical Therapy Rehab Orders (10/07/18 09:40) Occupational Therapy Rehab Ord (10/07/18 09:40) Speech Therapy Rehab Orders (10/07/18 09:40) General/Regular (10/07/18 Lunch) Intake & Output 06,14,22 (10/07/18 09:40) Precautions (Aru) (10/07/18 09:40) Weekly Weight (Lbs) WEEK (10/07/18 09:40) Rehab-Intensity Of Therapy (10/07/18 09:40) Code/Resuscitation (10/07/18 09:40) Initiate Admission Nursing Pro .admission (10/07/18 09:40) Admission Arrival Bed Request (10/07/18 10:45) Patient Visit (10/07/18 ) Pt Eval Moderate Complexity (10/07/18 ) Functional Activities, Ea 15 (10/07/18 ) Hydrocodone/Apap 5/325 Tablet (Lortab 5 (10/07/18 12:23) Ondansetron Oral Dissolve Tab (Zofran (10/07/18 12:24) Activity (10/07/18 12:50) Bladder Scan (10/07/18 12:50) Incentive Spirometry (Nursing) Q2H (10/07/18 12:50) Initiate Admission Nursing Pro .admission (10/07/18 12:50) Monitor For Bladder Distention (10/07/18 12:50) Notify Physician (10/07/18 12:50) Nursing Communication (Order) (10/07/18 12:50) Sequential Compression Device 08,20 (10/07/18 12:50) Telemetry (10/07/18 12:50) General/Regular (10/07/18 Dinner) Alprazolam Tablet (Xanax Tablet) (10/07/18 13:00) Acetaminophen Tablet (Tylenol Tablet) (10/07/18 13:00) Acetaminophen Suppository (Tylenol Suppo (10/07/18 13:00) Amiodarone Tablet (Cordarone Tablet) (10/07/18 21:00) Bethanechol Tablet (Urecholine Tablet) (10/07/18 16:00) Cholecalciferol Capsule/Tablet (Vitamin (10/08/18 09:00) Diltiazem Cd 24 Hr Capsule (Cardizem Cd (10/07/18 21:00) Docusate Sodium Capsule (Colace Capsule) (10/07/18 13:00) Hydrocodone/Apap 5/325 Tablet (Lortab 5 (10/07/18 13:00) Losartan Tablet (Cozaar Tablet) (10/07/18 21:00) Na Phos/Na Biphos Enema (Fleet Enema Quentin (10/07/18 13:00) Ondansetron Injection (Zofran Injectio (10/07/18 13:00) Ondansetron Oral Dissolve Tab (Zofran (10/07/18 13:00) Pantoprazole Tablet (Protonix Tablet) (10/08/18 09:00) Promethazine Suppository (Phenergan Supp (10/07/18 13:00) Sertraline Tablet (Zoloft Tablet) (10/07/18 21:00) Tamsulosin Capsule (Flomax Capsule) (10/07/18 18:00) Fentanyl Injection (Sublimaze Injection (10/07/18 13:00) Communication For Respiratory (10/07/18 12:50) Consult Pulmonology (10/07/18 12:50) Consult Urology (10/07/18 12:50) Telemetry Nursing Assessment ( (10/07/18 12:50) Consult Physician (10/07/18 12:50) Cbc With Automated Diff (10/08/18 06:00) Comprehensive Metabolic Panel (10/08/18 06:00) Patient Visit (10/07/18 ) Exercise Therap, Ea 15 Min (10/07/18 ) Functional Activities, Ea 15 (10/07/18 ) Patient Visit (10/07/18 ) Speech Sound Lang Comp (10/07/18 ) Calcium Carbonate Chew Tablet (Antacid C (10/07/18 20:45) Diphenhydramine Tablet (Benadryl Tablet) (10/07/18 20:45) Lactulose Oral Solution (Enulose Oral So (10/07/18 20:45) Melatonin Tablet (Melatonin Tablet) (10/07/18 20:45) Polyethylene Glycol Powder Pkt (Miralax (10/07/18 20:45) Polyethylene Glycol Powder Pkt (Miralax (10/07/18 21:00) Pantoprazole Tablet (Protonix Tablet) (10/08/18 21:00) Sodium Chloride Flush (Catheter Flush Sy (10/08/18 14:00) Sodium Chloride Flush (Catheter Flush Sy (10/08/18 14:00) Patient Visit (10/08/18 ) Functional Activities, Ea 15 (10/08/18 ) Exercise Therap, Ea 15 Min (10/08/18 ) Gait Training, Ea 15 Min (10/08/18 ) Losartan Tablet (Cozaar Tablet) (10/08/18 21:00) Rehab Nursing Orders: Ongoing Assess. of Cognitive Status, Ongoing Assess. of Function Status, Bladder Management, Bladder Scan, Bladder Training, Bowel Management, Bowel Training, Disease Management & Educaiton, DVT Prophylaxis, Fall Prevention, Fluid/Electrolyte/Nutrition Mgmt, Infection Prevention, Medication Management & Education, Management of Risks & Complications, Management of Skin Intergrity, Pain Management, Patient/Family Support, Safety Management Intensity of Therapy to be met Patient to be seen: Min.3h per day/5 of 7d PT IPOC Problem List: Activity Tolerance, Functional Strength, Safety, Balance, Gait, Transfer Treatment Plan: Continue Plan of Care Bed Mobility, Education, Functional Activity Rafia, Functional Strength, Group Therapy, Gait, Safety, Therapeutic Exercise, Transfers Treatment Duration: October 25, 2018 Frequency: At least 5 of 7 days/Wk (IRF) Estimated Hrs Per Day: 1.5 hours per day OT IPOC Problems: Decreased Activ Tolerance, Decreased UE Strength, Dependent Transfers , Impaired Bed Mobility, Impaired Funct Balance, Impaired I ADL's, Impaired Self -Care Skills OT Treatment, Training and Edu: Yes Plan of Care: ADL Retraining, Functional Mobility, Group Exercise/Act as Ind, UE Funct Exercise/Act Treatment Duration: November 04, 2018 Frequency: At least 5 of 7 days/Wk (IRF) Estimated Hrs Per Day: 1.[address] IPOC Speech Therapy Treatment Plan: Discontinue ST Treatment Duration: Oct 07, 2018 Frequency: 1 time per week Estimated Hrs Per Day: .25 hour per day Agile Scrum Coach/Case Mgmt Agile Scrum Coach/Case Managemen: Discharge Planning Dietitian/Sample Tester Grinder Dietitian/Sample Tester Grinder to monitor nutritional status and make changes and/or recommendations as needed and work with speech pathology on dietary upgrades as the occur. Physician IPOC Medical Issues being managed closely and that require the 24 hour availability of a physician: Sevre anemia with h/o GIB and transfusions will require close monitoring of hgb and any signs of bleeding Needs close Telemetry monitoring for AF w/RVR Medical Issues: Bowel/Bladder Function, DVT Prophylaxis, Falls Precautions, Fluid/Electrolyte/Nutrition Balance, Pain Management Brief Synthesis of Preadmission Screen, Post-Admission Evaluation, and Therapy Evaluations: PT will slowly improve stamina and endurance in order to return home OT will focus on independent ADL's in order to return home to live independently Medical Prognosis: Good Anticipated Length of Stay: 14 days YURI MARSHALL DO Oct 07, 2018 20:02
--- NOTE | 2018-10-07 20:37 | Progress Note (SOAP) ---
Subjective Date Seen by a Provider: Oct 07, 2018 Time Seen by a Provider: 12:35 Subjective/Events-last exam Fwup beta strep bacteremia, paroxysmal atrial fibrillation, chronic anemia, IV iron transfusion reaction, weakness, colonic polyps, history of AVMs on capsule endoscopy. Still in NSR. Sitting up in chair on rehab. C/O fatigue. Urinary catheter off. Objective Exam Vital Signs Date Time Temp Pulse Resp B/P (MAP) Pulse Ox O2 Delivery O2 Flow Rate FiO2 10/07/18 15:22 Room Air 10/07/18 12:52 82 10/07/18 11:15 98.3 124 20 114/63 (80) 98 Room Air Capillary Refill : General Appearance: No Apparent Distress Neck: Supple Respiratory: Lungs Clear Cardiovascular: Regular Rate, Rhythm, Systolic Murmur Extremity: Non Tender, No Calf Tenderness, No Pedal Edema Neurologic/Psychiatric: Oriented x3 Assessment/Plan Assessment/Plan Assess & Plan/Chief Complaint 1. Recent Strep Bacteremia--off abx, blood cultures drawn due to low grade temp overnight 2. Paroxyxmal Atrial Fibrillation--back in NSR, on amiodarone, anticoagulants on hold due to anemia 3. Iron Deficiency Anemia--H/H improved post transfusion and with hold of anticoagulants 4. Hypertension--controlled with Cardizem 5. Urinary Retention--on urecholine and flomax 6. Weakness--PT/OT, moved to rehab today Clinical Quality Measures DVT/VTE Risk/Contraindication: Risk Factor Score Per Nursin RFS Level Per Nursing on Admit: 2=Moderate ANTHONY PERDOMO DO Oct 07, 2018 20:37
[2018-10-07] MEDS ORDERED: POLYETHYLENE GLYCOL 17 GM (MIRALAX) PACK PO PRN (20:45)
[2018-10-07] MEDS ORDERED: MELATONIN 3 MG TABLET PO PRN (20:45)
[2018-10-07] MEDS ORDERED: diphenhydrAMINE 25 MG TAB (BENADRYL) PO PRN (20:45)
[2018-10-07] MEDS ORDERED: LACTULOSE SYRUP 10GM/15ML (ENULOSE) 30ML UDC PO PRN (20:45)
[2018-10-07] MEDS ORDERED: CALCIUM CARBONATE 500 MG (TUMS) TAB.CHEW PO PRN (20:45)
[2018-10-07] MEDS ORDERED: LOSARTAN 50 MG (COZAAR) TAB PO SCH (21:00)
[2018-10-07] MEDS: DILTIAZEM 240 MG (CARDIZEM CD) CAP PO SCH (21:49)
[2018-10-07] MEDS: AMIODARONE 200 MG (CORDARONE) TAB PO SCH (21:50)
[2018-10-07] MEDS: SERTRALINE 50 MG (ZOLOFT) TABLET PO SCH (21:50)
[2018-10-07] MEDS: DOCUSATE SODIUM 100 MG (COLACE) CAP PO PRN (21:54)
[2018-10-07] MEDS: HYDROcodone/APAP 5 MG/325 MG (LORTAB) TAB PO PRN (21:55)
[2018-10-07] MEDS: POLYETHYLENE GLYCOL 17 GM (MIRALAX) PACK PO SCH (21:58)
[2018-10-07] MEDS: ONDANSETRON 4 MG (ZOFRAN) ORAL DISSOLVE TAB PO PRN (22:25)
[2018-10-08] MEDS: BETHANECHOL 25 MG (URECHOLINE) TAB PO SCH ×4 (05:54→20:21)
[2018-10-08 06:12] LABS: BASOPHILS % (AUTO) 0 % (0-10); EOSINOPHILS # (AUTO) 0.1 10^3/uL (0.0-0.3); EOSINOPHILS % (AUTO) 2 % (0-10); HEMATOCRIT 29 % (35-52); HEMOGLOBIN 8.7 G/DL (11.5-16.0); LYMPHOCYTES # (AUTO) 1.4 X 10^3 (1.0-4.0); LYMPHOCYTES % (AUTO) 21 % (12-44); MEAN CORPUSCULAR HEMOGLOBIN 26 PG (25-34); MEAN CORPUSCULAR HGB CONC 30 G/DL (32-36); MEAN CORPUSCULAR VOLUME 87 FL (80-99); MEAN PLATELET VOLUME 9.6 FL (7.4-10.4); MONOCYTES # (AUTO) 0.7 X 10^3 (0.0-1.0); MONOCYTES % (AUTO) 10 % (0-12); NEUTROPHILS # (AUTO) 4.5 X 10^3 (1.8-7.8); NEUTROPHILS % (AUTO) 67 % (42-75); PLATELET COUNT 343 10^3/uL (130-400); RED CELL DISTRIBUTION WIDTH 21.4 % (10.0-14.5); WHITE BLOOD COUNT 6.7 10^3/uL (4.3-11.0)
[2018-10-08 06:18] VITALS: BP 162/76
[2018-10-08 06:31] LABS: ALANINE AMINOTRANSFERASE 15 U/L (0-55); ALBUMIN 2.7 GM/DL (3.2-4.5); ALKALINE PHOSPHATASE 72 U/L (40-136); BILIRUBIN,TOTAL 0.4 MG/DL (0.1-1.0); BUN/CREATININE RATIO 15; CALCIUM 8.7 MG/DL (8.5-10.1); CARBON DIOXIDE 25 MMOL/L (21-32); CHLORIDE 102 MMOL/L (98-107); CREATININE SERUM 0.79 MG/DL (0.60-1.30); GFR ESTIMATED > 60; GLUCOSE 94 MG/DL (70-105); POTASSIUM 3.9 MMOL/L (3.6-5.0); SODIUM 138 MMOL/L (135-145); TOTAL PROTEIN 6.2 GM/DL (6.4-8.2)
[2018-10-08 08:00] VITALS: BP 137/63
[2018-10-08] MEDS: ONDANSETRON 4 MG (ZOFRAN) ORAL DISSOLVE TAB PO PRN (08:44)
[2018-10-08] MEDS: AMIODARONE 200 MG (CORDARONE) TAB PO SCH ×2 (08:45→20:20)
[2018-10-08] MEDS: VITAMIN D3 1,000 UNITS (CHOLECALCIFEROL) TABLET PO SCH (08:46)
[2018-10-08] MEDS: SERTRALINE 50 MG (ZOLOFT) TABLET PO SCH ×2 (08:46→20:21)
[2018-10-08] MEDS: HYDROcodone/APAP 5 MG/325 MG (LORTAB) TAB PO PRN (08:46)
--- NOTE | 2018-10-08 08:54 | PM&R Progress Note ---
Subjective HPI/CC On Admission Date Seen by Provider: Oct 08, 2018 Time Seen by Provider: 08:30 Chief complaint: Myopathy with debility. HPI: This is a 68[address] 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 Pt has also had some urinary retention, Dr. Greco has been consulted and recommended self caths once a day with bladder scanning as needed and due to all of the 14 days of hospital stay she has become very debilitated and prior level of functioning was independent with use of a cane and now she can only take a few steps to go to the toilet. She did have a low grade fever today, sepsis workup with laboratory was ordered by Dr. Mcfarland to assess for any type of sepsis but we will continue the workup with Dr. Sahu's help along with Dr. Mcfarland, Dr. Cheng and Dr. Greco while she is on the inpatient rehab unit prior to discharge home to live independently. Subjective/Events-last exam Pt doing well today. No catheter was required overnight. She feels like she is voiding better but her urine does have a distinct odor. Hgb stable at 8.7. Dr. Mcfarland maintained in consultation services. Had a BM two days ago so will initiate bowel regimen until that returns back to normal. Participating in all therapies. Reviewed therapy notes. Conferred with RN. Needs to take plenty of rest breaks during therapies due to severe deconditioning Review of Systems General: Fatigue Objective Exam Vital Signs Vital Signs Date Time Temp Pulse Resp B/P (MAP) Pulse Ox O2 Delivery O2 Flow Rate FiO2 10/08/18 17:14 Room Air 10/08/18 15:33 97.6 82 20 146/81 (102) 97 Capillary Refill : General Appearance: No Apparent Distress, WD/WN, Chronically ill HEENT: PERRL/EOMI, Normal ENT Inspection, Pharynx Normal, Moist Mucous Membranes Neck: Full Range of Motion, Normal Inspection, Non Tender, Supple Respiratory: Chest Non Tender, Lungs Clear, Normal Breath Sounds, No Accessory Muscle Use, No Respiratory Distress Cardiovascular: Regular Rate, Rhythm, No JVD, No Murmur, Normal Peripheral Pulses, Systolic Murmur Gastrointestinal: Normal Bowel Sounds, No Organomegaly, No Pulsatile Mass, Non Tender, Soft Back: Normal Inspection, No CVA Tenderness, No Vertebral Tenderness Extremity: Normal Capillary Refill, Normal Inspection, Normal Range of Motion, Non Tender, No Calf Tenderness, Pedal Edema Neurologic/Psychiatric: Alert, Oriented x3, No Motor/Sensory Deficits (except generalized weakness all extremiteis 4/5), Normal Mood/Affect, dam operator II-XII Norm as Tested, Abnormal Gait, Depressed Affect, Motor Weakness Skin: Normal Color, Warm/Dry Lymphatic: No Adenopathy Results/Procedures Lab Laboratory Tests 10/08/18 05:34 Patient resulted labs reviewed. FIM Transfers Therapy Code Descriptions/Definitions Functional [place] Measure: 0=Not Assessed/NA 4=Minimal Assistance 1=Total Assistance 5=Supervision or Setup 2=Maximal Assistance 6=Modified [place] 3=Moderate Assistance 7=Complete [place] Therapy Quality Codes: 6 Independent with activity with or without an assistive device 5 Patient requires set up or clean up by helper. Patient completes activity by themselves 4 Supervision or touching assist (CGA). [place] provide cues , steadying assist 3 The helper provides less than half the effort to complete the activity 2 The helper provides more than half the effort to complete the activity 1 Dependent. The helper does all the effort to complete an activity 7 Patient refused to complete or attempt activity 9 The patient did not perform the activity before the current illness or injury 88 Not attempted due to Medical conditions or safety concerns Mental Status/Objective Comprehension: 7 Expression: 7 Social Interaction: 7 Problem Solvin Memory: 7 ADL-Treatment Groomin (Set up at chair to brush hair and teeth.) Oral Hygiene (QC): 5 Bathin (Pt. is able to wash most parts seated in chair. Does stand with assist and requires assist for balance while washing ping area.) Shower/Bathe Self (QC): 4 Lower Extremity Dressin (Pt. able to doff/don slipper socks. Able to don brief over feet and up to hips, but requires assistance to don over hips.) Lower Body Dressing (QC): 4 On/Off Footwear (QC): 4 Toiletin (Pt was incontinent of urine while seated in chair.) Toileting Hygiene (QC): 1 Toilet/Commode Transfer: 3 Toilet Transfer (QC): 3 Assessment/Plan Assessment and Plan Assess & Plan/Chief Complaint Assessment: 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 Plan: IRF protocols Home meds Pain meds Dr Greco appreciated Self caths and bladder scan prn daily BM regimen Appreciate Dr Mcfarland and Dr Greco and Dr Sahu Monitor labs Anticoagulation once no longer a risk for bleeding Rest breaks needed in-between therapies (1) Myopathy (2) Atrial fibrillation with rapid ventricular response (3) Palpitations (4) Nausea (5) Headache (6) Atrial fibrillation (7) Iron deficiency (8) Fever (9) Urinary retention (10) Anemia (11) Depression (12) Dyspnea (13) Edema (14) Cardiac murmur (15) UTI (urinary tract infection) (16) GERD (gastroesophageal reflux disease) (17) Cancer of spinal column (18) Debility (19) Late eff nerv injury trnk NEC (20) Leg weakness (21) Anticoagulant long-term use (22) Atrial fibrillation with rapid ventricular response (23) Transfusion of blood during current hospitalization (24) Self-catheterizes urinary bladder (25) Bacteremia due to Streptococcus YURI MARSHALL DO Oct 08, 2018 08:53
[2018-10-08] MEDS ORDERED: PANTOPRAZOLE 40 MG (PROTONIX) TAB PO SCH (09:00)
--- NOTE | 2018-10-08 09:17 | Physical Therapy Daily Note ---
PT Daily Note-Current Subjective Pt laying Supine upon arrival. Pt agrees to PT but reports feeling very weak and fatigued. Pt reports this is normal for her though. Pain Numeric Pain Scale: 8 Location: Right, Left Location Body Site: Knee Pain Description: Ache, Tightness, Chronic Mental Status Patient Orientation: Person, Place, Situation Pt is very anxious and self limits due to chronic pain and nausea. Transfers Therapy Code Descriptions/Definitions Functional [place] Measure: 0=Not Assessed/NA 4=Minimal Assistance 1=Total Assistance 5=Supervision or Setup 2=Maximal Assistance 6=Modified [place] 3=Moderate Assistance 7=Complete [place] Therapy Quality Codes: 6 Independent with activity with or without an assistive device 5 Patient requires set up or clean up by helper. Patient completes activity by themselves 4 Supervision or touching assist (CGA). [place] provide cues , steadying assist 3 The helper provides less than half the effort to complete the activity 2 The helper provides more than half the effort to complete the activity 1 Dependent. The helper does all the effort to complete an activity 7 Patient refused to complete or attempt activity 9 The patient did not perform the activity before the current illness or injury 88 Not attempted due to Medical conditions or safety concerns Scootin Supine to/from Sit: 4 Sit to/from Stand: 4 Sit to Lying (QC): 4 Sit to Stand (QC): 4 Weight Bearing Right Lower Extremity: Right Full Weight Bearing Left Lower Extremity: Left Full Weight Bearing Gait Training Does the Patient Walk?: Yes Distance (FIM): 1=up to 49 ft Distance: 10', 10' Walk 10 feet (QC): 3 Gait Level of Assist: 3 Gait Persons Needed: 1 Gait Assistive Device: FWW Pt walks with kyphotic posture, reports B knees giving out on her at times. Exercises Supine Ex: Ankle pumps, Quad Set, Glut sets, Heel Slides Supine Reps: 15 Treatments Pt transfers from bed to Standing using FWW. Pt ambulates to restroom per request. Pt returns to EOB to rest then reports needing to lay Supine due to feeling nauseated. Pt given meds from Nurse and completes Supine Ex. Pt resting at end of tx with all needs met and OT present. Assessment Current Status: Fair Progress Pt's self limiting negative feedback prohibits her giving full functional effort. Pt is fearful, anxious & needs constant positive feedback. PT Short Term Goals Short Term Goals Time Frame: October 14, 2018 Transfers (B,C,W/C) (FIM): 5 Gait (FIM): 2 Distance (FIM): 4=237-10 ft Gait Assistive Device: FWW PT Fpc Goals Scraper Hand Goals PT Fpc Goals Time Frame: October 25, 2018 Transfers (B,C,W/C) (FIM): 7 Sit to Lying (QC): 6 Lying-Sitting on Side/Bed(QC): 6 Sit to Stand (QC): 6 Roll Left to Right (QC): 6 Chair/Atm-si-Qrver Xfer(QC): 6 Car Transfer (QC): 6 Does the Patient Walk: Yes Gait (FIM): 6 Gait distance (FIM): 3=150 ft Walk 10 feet (QC): 6 Walk 10ft-Uneven Surface(QC): 5 Walk 50ft with 2 Turns (QC): 6 Walk 150 ft (QC): 6 Gait Assistive Device: FWW Does the Pt use WC or Scooter?: No Stairs (FIM): 2 # of Steps: 1 1 Step (curb) (QC): 6 4 Steps (QC): 88 12 Steps (QC): 88 Picking up an Object (QC): 88 PT Plan Problem List Problem List: Activity Tolerance, Functional Strength, Safety, Balance, Gait, Transfer, Bed Mobility Treatment/Plan Treatment Plan: Continue Plan of Care Treatment Plan: Bed Mobility, Education, Functional Activity Rafia, Functional Strength, Group Therapy, Gait, Safety, Therapeutic Exercise, Transfers Treatment Duration: October 25, 2018 Frequency: At least 5 of 7 days/Wk (IRF) Estimated Hrs Per Day: 1.5 hours per day Patient and/or Family Agrees t: Yes Safety Risks/Education Patient Education: Gait Training, Transfer Techniques, Correct Positioning, Safety Issues Teaching Recipient: Patient Teaching Methods: Discussion Response to Teaching: Reinforcement Needed Time/GCodes Time In: 800 Time Out: 900 Total Billed Treatment Time: 60 Total Billed Treatment 1, FA x2 (30m), EX (20m) & GT (10m) G Codes Necessary: SINGH Jeffries TAPER OPERATOR Oct 08, 2018 09:17
--- NOTE | 2018-10-08 09:22 | Cardiology Progress Note ---
Subjective Date Seen by Provider: Oct 08, 2018 Time Seen by Provider: 08:00 Subjective/Events-last exam Patient is in bed, no new complaints. Reports feeling better today. Denies any chest pain or dyspnea. Objective-Cardiology Exam Last Set of Vital Signs Vital Signs 10/08/18 10/08/18 06:18 07:00 Temp 99.2 Pulse 71 Resp 18 B/P (MAP) 162/76 (104) Pulse Ox 95 O2 Delivery Room Air Capillary Refill : I&O Intake and Output 10/08/18 00:00 Bladder Scan Volume Amount 249 ml Daily Weight Change Yes, 2-13 lbs General: Alert, Oriented X3, Cooperative HEENT: Atraumatic, PERRLA Neck: Supple, No JVD, No Thyromegaly Lungs: Clear to Auscultation, Normal Air Movement Heart: Regular Rate, Normal S1, Normal S2, No Murmurs Abdomen: Normal Bowel Sounds, Soft, No Tenderness, No Hepatosplenomegaly, No Masses Extremities: No Clubbing, No Cyanosis, No Edema, Normal Pulses, No Tenderness/ Swelling Skin: No Rashes, No Breakdown, No Significant Lesion Neuro: Normal Gait, Normal Speech, Strength at 5/5 X4 Ext, Normal Tone, Sensation Intact Psych/Mental Status: Mental Status NL, Mood NL Results Lab Laboratory Tests 10/08/18 05:34 A/P-Cardiology Admission Diagnosis Strep bacteremia Atrial fibrillation/flutter Anemia Generalized debility Assessment/Plan Streptococcus bacteremia, fever and chills and generalized weakness, started on Rocephin and vancomycin, managed by primary care physician, TITUS done 09/23/18 revealed mild with no vegetation to valves, received Rocephin for 11 days last dose on 10/04, received 4 day of Vanco. Back to have fever, repeat septic workup negative so far, continue to monitor. Generalized debility/weakness- continue PT Paroxysmal atrial fibrillation/flutter, currently back in sinus rhythm, maintained on Amiodarone. Dr. Martinez following. Anemia, has been on iron supplement, s/p blood transfusion. Currently off all OAC. EGD/colonoscopy done revealed no active bleeding, continue to monitor H&H History of chronic anticoagulation, had GI bleed on Pradaxa, intolerant to Coumadin. Xarelto was discontinued on this admission secondary to worsening anemia History of multiple episodes of GI bleed. Had workup done by Dr. Alberts and she was restarted on Xarelto, stopped for now and monitor H&H, reportedly had AVM as a source of the intermittent GI bleed Questionable underlying sleep apnea, Dr. Cheng following. Status post iron transfusion with questionable allergic reaction, had similar reaction to different iron product with generalized weakness and generalized body ache, has been managed by Dr. Nicholas History of abnormal baseline EKG with first-degree AV block and right bundle branch block, right ventricular hypertrophy pattern. History of syncope while on atenolol was unable to tolerate the medication in the past. History of pancreatic nodule, had workup with Dr. Alberts Family history of CVA Clinical Quality Measures DVT/VTE Risk/Contraindication: Risk Factor Score Per Nursin RFS Level Per Nursing on Admit: 2=Moderate RUBIO KOHLI Oct 08, 2018 09:22
--- NOTE | 2018-10-08 09:27 | NUR ---
JOSE IN EDUCATION NOTIFIED THAT PATIENT NEEDS EDUCATION AND TEACHING ON INTERMITTENT STRAIGHT CATH. STATES HE WILL DO IT TOMORROW.
--- NOTE | 2018-10-08 10:00 | NUR ---
DRS. MARSHALL AND LEAH NOTIFIED OF CONCENTRATED, FOUL-SMELLING URINE. PATIENT STATES "IT SMELLS LIKE ROTTEN MARTINEZ". DR. LYNN STATES "WE WILL TAKE IT ONE DAY AT A TIME".
--- NOTE | 2018-10-08 10:37 | Cardiology Progress Note ---
Subjective Date Seen by Provider: Oct 08, 2018 Time Seen by Provider: 08:00 Subjective/Events-last exam patient is laying down in bed, feeling better today. Reporting improvement. Review of Systems General: No Chills, No Night Sweats, No Fatigue, No Malaise, No Appetite, No Other HEENT: No Head Aches, No Visual Changes, No Eye Pain, No Ear Pain, No Dysphasia , No Sinus Congestion, No Post Nasal Drip, No Sore Throat, No Other Pulmonary: No Dyspnea, No Cough, No Pleuritic Chest Pain, No Other Cardiovascular: No: Chest Pain, Palpitations, Orthopnea, Paroxysmal Noc. Dyspnea, Edema, Lt Headedness, Other Objective-Cardiology Exam Last Set of Vital Signs Vital Signs 10/08/18 10/08/18 06:18 07:00 Temp 99.2 Pulse 71 Resp 18 B/P (MAP) 162/76 (104) Pulse Ox 95 O2 Delivery Room Air Capillary Refill : I&O Intake and Output 10/08/18 00:00 Bladder Scan Volume Amount 249 ml Daily Weight Change Yes, 2-13 lbs General: Alert, Oriented X3, Cooperative HEENT: Atraumatic, PERRLA Neck: Supple, No JVD, No Thyromegaly Lungs: Clear to Auscultation, Normal Air Movement Heart: Regular Rate, Normal S1, Normal S2, No Murmurs Abdomen: Normal Bowel Sounds, Soft, No Tenderness, No Hepatosplenomegaly, No Masses Extremities: No Clubbing, No Cyanosis, No Edema, Normal Pulses, No Tenderness/ Swelling Skin: No Rashes, No Breakdown, No Significant Lesion Neuro: Normal Gait, Normal Speech, Strength at 5/5 X4 Ext, Normal Tone, Sensation Intact Psych/Mental Status: Mental Status NL, Mood NL Results Lab Laboratory Tests 10/08/18 05:34 A/P-Cardiology Admission Diagnosis Strep bacteremia Atrial fibrillation/flutter Anemia Generalized debility Assessment/Plan Streptococcus bacteremia, fever and chills and generalized weakness, started on Rocephin and vancomycin, managed by primary care physician, TITUS done 09/23/18 revealed mild with no vegetation to valves, received Rocephin for 11 days last dose on 10/04, received 4 day of Vanco. Back to have fever, repeat septic workup negative so far, continue to monitor. Generalized debility/weakness- continue PT Paroxysmal atrial fibrillation/flutter, currently back in sinus rhythm, maintained on Amiodarone. Dr. Martinez following. Anemia, has been on iron supplement, s/p blood transfusion. Currently off all OAC. EGD/colonoscopy done revealed no active bleeding, continue to monitor H&H History of chronic anticoagulation, had GI bleed on Pradaxa, intolerant to Coumadin. Xarelto was discontinued on this admission secondary to worsening anemia History of multiple episodes of GI bleed. Had workup done by Dr. Alberts and she was restarted on Xarelto, stopped for now and monitor H&H, reportedly had AVM as a source of the intermittent GI bleed Questionable underlying sleep apnea, Dr. Cheng following. Status post iron transfusion with questionable allergic reaction, had similar reaction to different iron product with generalized weakness and generalized body ache, has been managed by Dr. Nicholas History of abnormal baseline EKG with first-degree AV block and right bundle branch block, right ventricular hypertrophy pattern. History of syncope while on atenolol was unable to tolerate the medication in the past. History of pancreatic nodule, had workup with Dr. Alberts Family history of CVA Clinical Quality Measures DVT/VTE Risk/Contraindication: Risk Factor Score Per Nursin RFS Level Per Nursing on Admit: 2=Moderate DAMON CLAUDIO MD Oct 08, 2018 10:37
--- NOTE | 2018-10-08 10:46 | Occupational Ther Daily Note ---
OT Current Status-Daily Note Subjective Pt. reports that she is nauseated throughout treatment. Has already had nausea meds but would like more. Nursing notified. Pt. became ill and had dry heaves. Pt. made comfortable in chair with soup, sprite, crackers, cold washcloth, and warm blanket. Appearance Pt. up in chair when OT enters room. Agrees to work with OT. Mental Status/Objective Patient Orientation: Person, Place, Time, Situation Therapy Code Descriptions/Definitions Functional [place] Measure: 0=Not Assessed/NA 4=Minimal Assistance 1=Total Assistance 5=Supervision or Setup 2=Maximal Assistance 6=Modified [place] 3=Moderate Assistance 7=Complete [place] Attachments: IV ADL-Treatment Therapy Code Descriptions/Definitions Functional [place] Measure: 0=Not Assessed/NA 4=Minimal Assistance 1=Total Assistance 5=Supervision or Setup 2=Maximal Assistance 6=Modified [place] 3=Moderate Assistance 7=Complete [place] Therapy Quality Codes: 6 Independent with activity with or without an assistive device 5 Patient requires set up or clean up by helper. Patient completes activity by themselves 4 Supervision or touching assist (CGA). [place] provide cues , steadying assist 3 The helper provides less than half the effort to complete the activity 2 The helper provides more than half the effort to complete the activity 1 Dependent. The helper does all the effort to complete an activity 7 Patient refused to complete or attempt activity 9 The patient did not perform the activity before the current illness or injury 88 Not attempted due to Medical conditions or safety concerns Eating (FIM): 5 (Set up) Eating (QC): 5 Grooming (FIM): 5 (Set up in chair to brush and blow dry hair.) Bathing (FIM): 5 (SBA in shower. Pt. issued LH sponge as well.) Shower/Bathe Self (QC): 4 Upper Body (FIM): 5 Upper Body Dressing (QC): 4 Lower Body Dressing (FIM): 4 (Min assist to correctly put on pants over feet. Otherwise, pt. able to pull feet up to her to don/doff slipper socks.) Lower Body Dressing (QC): 4 On/Off Footwear (QC): 4 Transfers (B, C, W/C) (FIM): 3 (Mod assist sit-stand.) Shower Transfer(FIM): 4 (CGA to transfer into shower.) Other Treatment Pt. is able to complete all ADLs in room/shower this date, with increased time needed. Pt. requires multiple rest breaks due to nausea and fatigue. Pt. becomes ill in room and needs jay. Dry heaves until she feels better. Nursing is aware and assesses pt. Pt. does eventually feel better and is able to brush hair and blow dry it with supervision. Agreed to eat some soup and crackers to see if this would make her feel better. This is ordered for her. All needs are met in room with pt. up in chair eating soup at end of session. Will continue to assess pt. Education OT Patient Education: Correct positioning, Modified ADL techniques, Progress toward Goal/Update tx plan, Purpose of tx/functional activities, Reviewed precautions, Rehab process, Transfer techniques Teaching Recipient: Patient Teaching Methods: Demonstration, Discussion Response to Teaching: Verbalize Understanding, Return Demonstration OT Short Term Goals Short Term Goals Time Frame: October 21, 2018 Eating(FIM): 5 Grooming(FIM): 5 Bathing(FIM): 5 Upper Body Dressing(FIM): 5 Lower Body Dressing(FIM): 5 Toileting(FIM): 5 Transfers (B,C,W/C) (FIM): 5 Toilet/Commode Transfer(FIM): 5 Shower Transfer(FIM): 4 Additional Short Term Goals: 1-Demonstrate ADL Tasks, 2-Verbalize Understanding , 3-ImproveStrength/Rafia 1=Demonstrate adherence to instructed precautions during ADL tasks. 2=Patient will verbalize/demonstrate understanding of assistive devices/ modifications for ADL. 3=Patient will improve strength/tolerance for activity to enable patient to perform ADL's. OT Soil Science Teacher Goals Soil Science Teacher Goals Time Frame: November 04, 2018 Eating (FIM): 6 Eating (QC): 6 Groomin Oral Hygiene (QC): 6 Bathing(FIM): 5 Shower/Bathe Self (QC): 5 Upper Body Dressing(FIM): 6 Upper Body Dressing (QC): 6 Lower Body Dressing(FIM): 6 Lower Body Dressing (QC): 6 On/Off Footwear (QC): 6 Toileting(FIM): 6 Toileting Hygiene (QC): 6 Transfers (B,C,W/C) (FIM): 6 Toilet/Commode Transfer(FIM): 6 Toilet/Commode Transfer (QC): 6 Shower Transfer(FIM): 5 Additional Goals: 1-Demonstrate ADL Tasks, 2-Verbalize Understanding, 3- ImproveStrength/Rafia 1=Demonstrate adherence to instructed precautions during ADL tasks. 2=Patient will verbalize/demonstrate understanding of assistive devices/ modifications for ADL. 3=Patient will improve strength/tolerance for activity to enable patient to perform ADL's. OT Education/Plan Problem List/Assessment Assessment: Decreased Activ Tolerance, Dependent Transfers, Impaired Funct Balance, Impaired I ADL's, Impaired Self-Care Skills Discharge Recommendations Plan/Recommendations: Continue POC Therapy D/C Recommendations: Home w/ Family Support, Occupational Therapy Home Care Treatment Plan/Plan of Care Treatment,Training & Education: Yes Patient would benefit from OT for education, treatment and training to promote independence in ADL's, mobility, safety and/or upper extremity function for ADL' s. Plan of Care: ADL Retraining, Functional Mobility, Group Exercise/Act as Ind, UE Funct Exercise/Act Treatment Duration: November 04, 2018 Frequency: At least 5 of 7 days/Wk (IRF) Estimated Hrs Per Day: 1.5 hours per day Agreement: Yes Rehab Potential: Good Time/GCodes Start Time: 09:00 Stop Time: 10:30 Total Time Billed (hr/min): 90 Billed Treatment Time 1, ADL x 6 SADE YATES OT Oct 08, 2018 10:46
--- NOTE | 2018-10-08 11:42 | Progress Note-Urology ---
Progress Note-Urology Progress Notes/Assess & Plan Progress/Assessment & Plan PVR YESTERDAY 300CC. KEEP SAME PLAN Final Diagnosis URINE RETENTION KEITH LYNN MD Oct 08, 2018 11:42
--- NOTE | 2018-10-08 12:16 | NUR ---
BILLIARD TABLE REPAIRER met with patient to complete initial assessment. Patient was alert and oriented and agreeable to assessment. Patient admitted to ARU from internally with myopathy and debility. Prior to hospitalization patient resided alone in an entry level chemist apartment in [place], [place]. Patient reports independence with ambulation with assistance of a cane or front-wheeled walker in independence with ADLs. 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 Patient identifies daughter Saadia of [place] as primary contact at [phone] and secondary contact as Gabriela at [phone]. PCP verified as Dr. Ellen Sahu, Urologist as Dr. Greco, Cryptographic Clerk as Dr. Fitch and Oncologist as Dr. Parker. Insurance verified as Medicare and [place] with [employer] prescription coverage and preferred pharmacy as [facility]. While completing assessment Dr. Greco an RN encourage patient to learn self-catheterization due to continued urinary retention issues. Patient is apprehensive about self catheter; however, will receive education tomorrow. BILLIARD TABLE REPAIRER reviewed typical ARU length of stay and weekly team conferences, she expresses no concerns. BILLIARD TABLE REPAIRER will continue to follow for additional needs.
--- NOTE | 2018-10-08 13:00 | NUR ---
DR. PERDOMO HERE TO SEE PATIENT. PROTONIX CHANGED TO BID DUE TO NAUSEA. DRY HEAVES THIS AM, BUT IMPROVED NOW AFTER ZOFRAN. DR. CHURCHILL VISITED ALSO. MAY DO FLUTTER ABLATION AT SOME POINT DURING THIS STAY.
--- NOTE | 2018-10-08 13:14 | Cardiology Progress Note ---
Cardiology SOAP Progress Note Subjective: No further palpitations. Objective: I&O/Vital Signs 10/08/18 10/08/18 10/08/18 10/08/18 06:18 07:00 09:00 12:29 Temp 99.2 Pulse 78 71 73 Resp 18 B/P (MAP) 162/76 (104) Pulse Ox 95 O2 Delivery Room Air Room Air Weight (Pounds): 174 Weight (Ounces): 0.0 Weight (Calculated Kilograms): 78.668719 Constitutional: No appears stated age, No AAO x 3, No apparent distress, No PERRL, No well-developed, No well-nourished, No other Respiratory: No accessory muscle use, No respiratory distress, No chest tender , No chest expansion is symmetric; chest is bilaterally symmetric; No lungs clear to percussion; lungs clear to auscultation; No crackles, No rhonchi, No rales, No stridor, No wheezing, No pleural rub, No other Cardiovascular: regular rate-rhythm; No irregularly irregular, No extra beats, No parasternal heave is noted, No JVD, No edema, No bradycardia, No tachycardia , No point of maximal impulse, No cardiac thrills are palpable; S1 and S2; No gallop/S3, No gallop/S4, No diastolic murmur, No systolic murmur, No friction rub, No click, No other Gastrointestional: No tender, No soft, No round, No distended, No pulsatile mass, No organomegaly, No guarding, No rebound, No tenderness, No hernia, No mass, No audible bowel sounds, No abnormal bowel sounds, No abdominal bruits, No spleenomegaly, No other Extremities: No normal range of motion, No non-tender, No normal inspection, No pedal edema, No calf tenderness, No normal capillary refill, No pelvis stable , No calf tenderness, No inflammation, No pedal edema, No slow capillary refill , No swelling, No other, No abrasion, No clubbing, No cyanosis, No ecchymosis, No laceration, No no lower extremity edema bilateral, No significant edema, No tenderness, No wound Neurologic/Psychiatric: no motor/sensory deficits, alert, normal mood/affect, oriented x 3 Skin: pallor Results/Procedures: Labs Laboratory Tests 10/08/18 05:34: White Blood Count 6.7, Red Blood Count 3.34L, Hemoglobin 8.7L, Hematocrit 29L, Mean Corpuscular Volume 87, Mean Corpuscular Hemoglobin 26, Mean Corpuscular Hemoglobin Concent 30L, Red Cell Distribution Width 21.4H, Platelet Count 343, Mean Platelet Volume 9.6, Neutrophils (%) (Auto) 67, Lymphocytes (%) (Auto) 21, Monocytes (%) (Auto) 10, Eosinophils (%) (Auto) 2, Basophils (%) (Auto) 0, Neutrophils # (Auto) 4.5, Lymphocytes # (Auto) 1.4, Monocytes # (Auto) 0.7, Eosinophils # (Auto) 0.1, Basophils # (Auto) 0.0, Sodium Level 138, Potassium Level 3.9, Chloride Level 102, Carbon Dioxide Level 25, Anion Gap 11, Blood Urea Nitrogen 12, Creatinine 0.79, Estimat Glomerular Filtration Rate > 60, BUN/ Creatinine Ratio 15, Glucose Level 94, Calcium Level 8.7, Corrected Calcium 9.7 , Total Bilirubin 0.4, Aspartate Amino Transf (AST/SGOT) 17, Alanine Aminotransferase (ALT/SGPT) 15, Alkaline Phosphatase 72, Total Protein 6.2L, Albumin 2.7L A/P: Assessment/Dx: Typical atrial flutter, Paroxysmal atrial fibrillation, Recent GI bleeding Plan: Typical atrial flutter, I spoke at length to the patient and Dr. Sahu. We' ll try to arrange right-sided typical atrial flutter ablation this Sunday with anesthesia and EP lab. Paroxysmal atrial fibrillation, currently in sinus rhythm. Continue amiodarone. No oral anticoagulation due to recent GI bleeding. Recent GI bleeding, not on any anticoagulation at this point in time. Dr. Mcfarland following as well. Thank you for your consultation. Please call me if you have any questions. Jay Martinez MD, FACP, FACC, FSCAI, FHRS, CCDS Interventional Cardiology Cardiac Electrophysiology Vascular Medicine and Endovascular Interventions Tracy MARTINEZ MD Oct 08, 2018 13:14
[2018-10-08] MEDS: CATHETER FLUSH 10 ML SYR IV SCH ×2 (14:35→20:30)
--- NOTE | 2018-10-08 14:40 | Physical Therapy Daily Note ---
PT Daily Note-Current Subjective Pt laying Supine in bed upon arrival. Pt agrees to PT and asks for walking for tx. Transfers Therapy Code Descriptions/Definitions Functional [place] Measure: 0=Not Assessed/NA 4=Minimal Assistance 1=Total Assistance 5=Supervision or Setup 2=Maximal Assistance 6=Modified [place] 3=Moderate Assistance 7=Complete [place] Therapy Quality Codes: 6 Independent with activity with or without an assistive device 5 Patient requires set up or clean up by helper. Patient completes activity by themselves 4 Supervision or touching assist (CGA). [place] provide cues , steadying assist 3 The helper provides less than half the effort to complete the activity 2 The helper provides more than half the effort to complete the activity 1 Dependent. The helper does all the effort to complete an activity 7 Patient refused to complete or attempt activity 9 The patient did not perform the activity before the current illness or injury 88 Not attempted due to Medical conditions or safety concerns Weight Bearing Right Lower Extremity: Right Full Weight Bearing Left Lower Extremity: Left Full Weight Bearing PT Short Term Goals Short Term Goals Time Frame: October 14, 2018 Transfers (B,C,W/C) (FIM): 5 Gait (FIM): 2 Distance (FIM): 4=677-44 ft Gait Assistive Device: FWW PT Residential Goals Residential Goals PT Residential Goals Time Frame: October 25, 2018 Transfers (B,C,W/C) (FIM): 7 Sit to Lying (QC): 6 Lying-Sitting on Side/Bed(QC): 6 Sit to Stand (QC): 6 Roll Left to Right (QC): 6 Chair/Jdl-si-Qlwtg Xfer(QC): 6 Car Transfer (QC): 6 Does the Patient Walk: Yes Gait (FIM): 6 Gait distance (FIM): 3=150 ft Walk 10 feet (QC): 6 Walk 10ft-Uneven Surface(QC): 5 Walk 50ft with 2 Turns (QC): 6 Walk 150 ft (QC): 6 Gait Assistive Device: FWW Does the Pt use WC or Scooter?: No Stairs (FIM): 2 # of Steps: 1 1 Step (curb) (QC): 6 4 Steps (QC): 88 12 Steps (QC): 88 Picking up an Object (QC): 88 PT Plan Treatment/Plan Treatment Plan: Bed Mobility, Education, Functional Activity Rafia, Functional Strength, Group Therapy, Gait, Safety, Therapeutic Exercise, Transfers Treatment Duration: October 25, 2018 Frequency: At least 5 of 7 days/Wk (IRF) Estimated Hrs Per Day: 1.5 hours per day Patient and/or Family Agrees t: Yes SINGH OKEEFE PTA Oct 08, 2018 14:40
--- NOTE | 2018-10-08 15:00 | NUR ---
WAS INCONTINENT OF SOME URINE IN BRIEF, THEN VOIDED 100 CC IN TOILET. BLADDER SCAN SHOWS 384 CC. STRAIGHT CATH'D AND 325 CC URINE RETURN.
[2018-10-08 15:33] VITALS: BP 146/81
--- NOTE | 2018-10-08 15:53 | Physical Therapy Daily Note ---
PT Daily Note-Current Subjective Pt laying Supine in bed upon arrival. Pt agrees to PT. Pt reports wanting to walk after using restroom. Pain Numeric Pain Scale: 10-Worst Possible Pain Location: Right, Left Location Body Site: Knee Pain Description: Ache, Tightness Comment: Pt reports pain in B knees & back. Mental Status Patient Orientation: Person, Place Pt has expectations that do not agree with participation during tx. Transfers Therapy Code Descriptions/Definitions Functional [place] Measure: 0=Not Assessed/NA 4=Minimal Assistance 1=Total Assistance 5=Supervision or Setup 2=Maximal Assistance 6=Modified [place] 3=Moderate Assistance 7=Complete [place] Therapy Quality Codes: 6 Independent with activity with or without an assistive device 5 Patient requires set up or clean up by helper. Patient completes activity by themselves 4 Supervision or touching assist (CGA). [place] provide cues , steadying assist 3 The helper provides less than half the effort to complete the activity 2 The helper provides more than half the effort to complete the activity 1 Dependent. The helper does all the effort to complete an activity 7 Patient refused to complete or attempt activity 9 The patient did not perform the activity before the current illness or injury 88 Not attempted due to Medical conditions or safety concerns Scootin Supine to/from Sit: 2 Sit to/from Stand: 2 Sit to Lying (QC): 2 Sit to Stand (QC): 2 Weight Bearing Right Lower Extremity: Right Full Weight Bearing Left Lower Extremity: Left Full Weight Bearing Gait Training Does the Patient Walk?: Yes Distance (FIM): 1=up to 49 ft Distance: 10', 10' Walk 10 feet (QC): 2 Gait Level of Assist: 2 Gait Persons Needed: 1 Gait Assistive Device: FWW Pt reports knees buckling during ambulation but HEAVY MEDIA OPERATOR did not see evidence of this. Pt was very fearful of walking. Treatments Pt transfers from bed to standing to use restroom. Pt is not able to urinate but can change own brief while seated. Pt asked for assistance to help don brief & pants after attempting. Pt ambulates back to bed and lets go with R hand from FWW to reach for bed, feeling as though B knees are buckling. HEAVY MEDIA OPERATOR gives instructions to pt on proper transfer and assists with transfer back to Supine in bed. Pt resting at end of tx with all needs met. Nursing is bladder scanning. Assessment Current Status: Poor Progress Pt's self limiting negative feedback prohibits her giving full functional effort. Pt is fearful, anxious & needs constant positive feedback. PT Short Term Goals Short Term Goals Time Frame: October 14, 2018 Transfers (B,C,W/C) (FIM): 5 Gait (FIM): 2 Distance (FIM): 4=469-55 ft Gait Assistive Device: FWW PT Chief Mechanical Officer Goals Longterm Goals PT Chief Mechanical Officer Goals Time Frame: October 25, 2018 Transfers (B,C,W/C) (FIM): 7 Sit to Lying (QC): 6 Lying-Sitting on Side/Bed(QC): 6 Sit to Stand (QC): 6 Roll Left to Right (QC): 6 Chair/Skk-sz-[place] Xfer(QC): 6 Car Transfer (QC): 6 Does the Patient Walk: Yes Gait (FIM): 6 Gait distance (FIM): 3=150 ft Walk 10 feet (QC): 6 Walk 10ft-Uneven Surface(QC): 5 Walk 50ft with 2 Turns (QC): 6 Walk 150 ft (QC): 6 Gait Assistive Device: FWW Does the Pt use WC or Scooter?: No Stairs (FIM): 2 # of Steps: 1 1 Step (curb) (QC): 6 4 Steps (QC): 88 12 Steps (QC): 88 Picking up an Object (QC): 88 PT Plan Problem List Problem List: Activity Tolerance, Functional Strength, Safety, Balance, Gait, Transfer, Bed Mobility Treatment/Plan Treatment Plan: Continue Plan of Care Treatment Plan: Bed Mobility, Education, Functional Activity Rafia, Functional Strength, Group Therapy, Gait, Safety, Therapeutic Exercise, Transfers Treatment Duration: October 25, 2018 Frequency: At least 5 of 7 days/Wk (IRF) Estimated Hrs Per Day: 1.5 hours per day Patient and/or Family Agrees t: Yes Safety Risks/Education Patient Education: Gait Training, Transfer Techniques, Correct Positioning, Safety Issues Teaching Recipient: Patient Teaching Methods: Discussion Response to Teaching: Unable to Comprehend, Reinforcement Needed Time/GCodes Time In: 1400 Time Out: 1430 Total Billed Treatment Time: 30 Total Billed Treatment 1, FA x2 (30m) G Codes Necessary: SINGH Jeffries HEAVY MEDIA OPERATOR Oct 08, 2018 15:53
[2018-10-08] MEDS: ONDANSETRON 4 MG/2 ML (SDV) Z0FRAN IVP PRN (16:10)
[2018-10-08] MEDS: CATHETER FLUSH 10 ML SYR IV PRN (16:10)
--- NOTE | 2018-10-08 17:43 | Progress Note (SOAP) ---
Subjective Date Seen by a Provider: Oct 08, 2018 Time Seen by a Provider: 12:35 Subjective/Events-last exam Fwup beta strep bacteremia, paroxysmal atrial fibrillation, chronic anemia, IV iron transfusion reaction, weakness, colonic polyps, history of AVMs on capsule endoscopy, urinary retention. C/O fatigue. Dr. Martinez consider right sided ablation as this will not require anticoagulation and patient did have atrial flutter that progress to atrial fibrillation. Objective Exam Vital Signs Date Time Temp Pulse Resp B/P (MAP) Pulse Ox O2 Delivery O2 Flow Rate FiO2 10/08/18 17:14 Room Air 10/08/18 15:33 97.6 82 20 146/81 (102) 97 Room Air 10/08/18 15:00 Room Air 10/08/18 12:29 73 10/08/18 09:00 Room Air 10/08/18 08:00 77 137/63 (87) 10/08/18 07:00 71 10/08/18 06:18 99.2 78 18 162/76 (104) 95 Room Air 10/08/18 01:00 78 10/07/18 20:00 99.7 82 20 157/77 (103) 97 Room Air 10/07/18 20:00 Room Air 10/07/18 19:02 90 I & O 10/08/18 07:00 Intake Total 250 ml Output Total 300 ml Balance -50 ml Capillary Refill : General Appearance: No Apparent Distress Respiratory: Lungs Clear Cardiovascular: Regular Rate, Rhythm, Systolic Murmur Gastrointestinal: normal bowel sounds, non tender, soft Extremity: Non Tender, No Calf Tenderness, No Pedal Edema Neurologic/Psychiatric: Alert, Oriented x3 Skin: Warm/Dry, Pallor Results Lab Laboratory Tests 10/08/18 05:34: White Blood Count 6.7, Red Blood Count 3.34L, Hemoglobin 8.7L, Hematocrit 29L, Mean Corpuscular Volume 87, Mean Corpuscular Hemoglobin 26, Mean Corpuscular Hemoglobin Concent 30L, Red Cell Distribution Width 21.4H, Platelet Count 343, Mean Platelet Volume 9.6, Neutrophils (%) (Auto) 67, Lymphocytes (%) (Auto) 21, Monocytes (%) (Auto) 10, Eosinophils (%) (Auto) 2, Basophils (%) (Auto) 0, Neutrophils # (Auto) 4.5, Lymphocytes # (Auto) 1.4, Monocytes # (Auto) 0.7, Eosinophils # (Auto) 0.1, Basophils # (Auto) 0.0, Sodium Level 138, Potassium Level 3.9, Chloride Level 102, Carbon Dioxide Level 25, Anion Gap 11, Blood Urea Nitrogen 12, Creatinine 0.79, Estimat Glomerular Filtration Rate > 60, BUN/ Creatinine Ratio 15, Glucose Level 94, Calcium Level 8.7, Corrected Calcium 9.7 , Total Bilirubin 0.4, Aspartate Amino Transf (AST/SGOT) 17, Alanine Aminotransferase (ALT/SGPT) 15, Alkaline Phosphatase 72, Total Protein 6.2L, Albumin 2.7L Assessment/Plan Assessment/Plan Assess & Plan/Chief Complaint 1. Recent Strep Bacteremia--off abx, no temp overnight 2. Paroxyxmal Atrial Fibrillation--back in NSR, on amiodarone, anticoagulants on hold due to anemia, EP discussing right heart ablation at end of week or next week due to A flutter progressing to A fib and will not need high dose anticoagulants for this 3. Iron Deficiency Anemia--H/H improved post transfusion and with hold of anticoagulants, will hold on lab draws for next couple of days and then recheck at end of week 4. Hypertension--some elevation so will increase losartan dose 5. Urinary Retention--on urecholine and flomax and improving 6. Weakness--PT/OT Clinical Quality Measures DVT/VTE Risk/Contraindication: Risk Factor Score Per Nursin RFS Level Per Nursing on Admit: 2=Moderate ANTHONY PERDOMO DO Oct 08, 2018 17:43
[2018-10-08] MEDS: TAMSULOSIN 0.4 MG (FLOMAX) CAP PO SCH (18:35)
[2018-10-08] MEDS: PANTOPRAZOLE 40 MG (PROTONIX) TAB PO SCH (20:20)
[2018-10-08] MEDS: DILTIAZEM 240 MG (CARDIZEM CD) CAP PO SCH (20:20)
[2018-10-08] MEDS: LOSARTAN 100 MG (COZAAR) TABLET PO SCH (20:21)
[2018-10-08] MEDS: POLYETHYLENE GLYCOL 17 GM (MIRALAX) PACK PO SCH (20:22)
[2018-10-09 05:52] VITALS: BP 135/68
[2018-10-09] MEDS: CATHETER FLUSH 10 ML SYR IV SCH ×3 (06:00→20:15)
[2018-10-09] MEDS: ONDANSETRON 4 MG/2 ML (SDV) Z0FRAN IVP PRN ×3 (06:13→22:31)
[2018-10-09] MEDS: PANTOPRAZOLE 40 MG (PROTONIX) TAB PO SCH ×3 (06:13→20:15)
[2018-10-09] MEDS: BETHANECHOL 25 MG (URECHOLINE) TAB PO SCH ×4 (06:13→20:13)
--- NOTE | 2018-10-09 08:00 | NUR ---
FRUSTRATED. FEELS "IS PUSHING BODY, BUT DOESN'T FEEL IS GETTING ANY STRONGER". GOING ON 3RD DAY WITHOUT BM. REFUSES MIRALAX AND LACTULOSE. STATES USUALLY ONLY TAKES COLACE BID AND WANTS TO DO THAT. STATES NAUSEA GOING ON FOR 4-5 DAYS NOW AFTER EATING AND MEDS. ON PROTONIX BID AND ZOFRAN.
[2018-10-09] MEDS: VITAMIN D3 1,000 UNITS (CHOLECALCIFEROL) TABLET PO SCH (08:10)
[2018-10-09] MEDS: AMIODARONE 200 MG (CORDARONE) TAB PO SCH ×2 (08:12→20:14)
[2018-10-09] MEDS: SERTRALINE 50 MG (ZOLOFT) TABLET PO SCH ×2 (08:12→20:15)
--- NOTE | 2018-10-09 08:19 | Cardiology Progress Note ---
Subjective Date Seen by Provider: October 09, 2018 Time Seen by Provider: 08:16 Subjective/Events-last exam Patient is in bed, no new complaints. Continues to c/o fatigue. Reports she is anxious about aflutter ablation. Objective-Cardiology Exam Last Set of Vital Signs Vital Signs 10/09/18 10/09/18 05:52 07:04 Temp 99.4 Pulse 77 Resp 20 B/P (MAP) 135/68 (90) Pulse Ox 96 O2 Delivery Room Air Capillary Refill : I&O Intake and Output 10/09/18 00:00 Intake Total 950 ml Output Total 725 ml Balance 225 ml Intake Oral 950 ml Output Urine Total 725 ml Bladder Scan Volume Amount 384 ml # Voids 3 General: Alert, Oriented X3, Cooperative HEENT: Atraumatic, PERRLA Neck: Supple, No JVD, No Thyromegaly Lungs: Clear to Auscultation, Normal Air Movement Heart: Regular Rate, Normal S1, Normal S2, No Murmurs Abdomen: Normal Bowel Sounds, Soft, No Tenderness, No Hepatosplenomegaly, No Masses Extremities: No Clubbing, No Cyanosis, No Edema, Normal Pulses, No Tenderness/ Swelling Skin: No Rashes, No Breakdown, No Significant Lesion Neuro: Normal Gait, Normal Speech, Strength at 5/5 X4 Ext, Normal Tone, Sensation Intact Psych/Mental Status: Mental Status NL, Mood NL A/P-Cardiology Admission Diagnosis Strep bacteremia Atrial fibrillation/flutter Anemia Generalized debility Assessment/Plan Streptococcus bacteremia, fever and chills and generalized weakness, started on Rocephin and vancomycin, managed by primary care physician, TITUS done 09/23/18 revealed mild with no vegetation to valves, received Rocephin for 11 days last dose on 10/04, received 4 day of Vanco. Back to have fever, repeat septic workup negative, continue to monitor. Generalized debility/weakness- continue PT Paroxysmal atrial fibrillation/flutter, currently back in sinus rhythm, maintained on Amiodarone. Dr. Martinez following, planning for possible ablation later this week. Anemia, has been on iron supplement, s/p blood transfusion. Currently off all OAC. EGD/colonoscopy done revealed no active bleeding, continue to monitor H&H History of chronic anticoagulation, had GI bleed on Pradaxa, intolerant to Coumadin. Xarelto was discontinued secondary to worsening anemia History of multiple episodes of GI bleed. Had workup done by Dr. Alberts and she was restarted on Xarelto, stopped for now and monitor H&H, reportedly had AVM as a source of the intermittent GI bleed Questionable underlying sleep apnea, Dr. Cheng following. Status post iron transfusion with questionable allergic reaction, had similar reaction to different iron product with generalized weakness and generalized body ache, has been managed by Dr. Nicholas History of abnormal baseline EKG with first-degree AV block and right bundle branch block, right ventricular hypertrophy pattern. History of syncope while on atenolol was unable to tolerate the medication in the past. History of pancreatic nodule, had workup with Dr. Alberts Family history of CVA Clinical Quality Measures DVT/VTE Risk/Contraindication: Risk Factor Score Per Nursin RFS Level Per Nursing on Admit: 2=Moderate RUBIO KOHLI October 09, 2018 08:19
--- NOTE | 2018-10-09 08:26 | PM&R Progress Note ---
Subjective HPI/CC On Admission Date Seen by Provider: October 09, 2018 Time Seen by Provider: 08:30 Chief complaint: Myopathy with debility. HPI: This is a 68[address] 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 Pt has also had some urinary retention, Dr. Greco has been consulted and recommended self caths once a day with bladder scanning as needed and due to all of the 14 days of hospital stay she has become very debilitated and prior level of functioning was independent with use of a cane and now she can only take a few steps to go to the toilet. She did have a low grade fever today, sepsis workup with laboratory was ordered by Dr. Mcfarland to assess for any type of sepsis but we will continue the workup with Dr. Sahu's help along with Dr. Mcfarland, Dr. hCeng and Dr. Greco while she is on the inpatient rehab unit prior to discharge home to live independently. Subjective/Events-last exam Patient very tearful today Doesn't feel like she is making progress Atrial ablation was sent for Sunday but that has since been canceled since spoke to her about it Dr. Sahu will address the nausea with proton pump inhibitor twice a day and Zofran Straight catheters are going pretty well Bowel still has not moved refusing everything except for stool softener twice daily Ultram was change for the pain that she has chronically Zoloft was also started for depression She has good ADLs when sitting down as she does chronically Spoke to her about a senior living placement if she needed slower rehab pace Conferred with RN and assessed therapy notes Note from 10/08/18: Pt doing well today. No catheter was required overnight. She feels like she is voiding better but her urine does have a distinct odor. Hgb stable at 8.7. Dr. Mcfarland maintained in consultation services. Had a BM two days ago so will initiate bowel regimen until that returns back to normal. Participating in all therapies. Reviewed therapy notes. Conferred with RN. Needs to take plenty of rest breaks during therapies due to severe deconditioning Review of Systems General: Fatigue Neurological: Weakness, Numbness, Incoordination Objective Exam Vital Signs Vital Signs Date Time Temp Pulse Resp B/P (MAP) Pulse Ox O2 Delivery O2 Flow Rate FiO2 10/09/18 13:00 74 10/09/18 09:00 Room Air 10/09/18 05:52 99.4 20 135/68 (90) 96 Capillary Refill : General Appearance: No Apparent Distress, WD/WN, Chronically ill HEENT: PERRL/EOMI, Normal ENT Inspection, Pharynx Normal, Moist Mucous Membranes Neck: Full Range of Motion, Normal Inspection, Non Tender, Supple Respiratory: Chest Non Tender, Lungs Clear, Normal Breath Sounds, No Accessory Muscle Use, No Respiratory Distress Cardiovascular: Regular Rate, Rhythm, No JVD, No Murmur, Normal Peripheral Pulses, Systolic Murmur Gastrointestinal: Normal Bowel Sounds, No Organomegaly, No Pulsatile Mass, Non Tender, Soft Back: Normal Inspection, No CVA Tenderness, No Vertebral Tenderness Extremity: Normal Capillary Refill, Normal Inspection, Normal Range of Motion, Non Tender, No Calf Tenderness, Pedal Edema Neurologic/Psychiatric: Alert, Oriented x3, No Motor/Sensory Deficits (except generalized weakness all extremiteis 4/5), Normal Mood/Affect, patient safety coordinator II-XII Norm as Tested, Abnormal Gait, Depressed Affect, Motor Weakness Skin: Normal Color, Warm/Dry Lymphatic: No Adenopathy Results/Procedures Lab Patient resulted labs reviewed. FIM Transfers Therapy Code Descriptions/Definitions Functional [place] Measure: 0=Not Assessed/NA 4=Minimal Assistance 1=Total Assistance 5=Supervision or Setup 2=Maximal Assistance 6=Modified [place] 3=Moderate Assistance 7=Complete [place] Therapy Quality Codes: 6 Independent with activity with or without an assistive device 5 Patient requires set up or clean up by helper. Patient completes activity by themselves 4 Supervision or touching assist (CGA). [place] provide cues , steadying assist 3 The helper provides less than half the effort to complete the activity 2 The helper provides more than half the effort to complete the activity 1 Dependent. The helper does all the effort to complete an activity 7 Patient refused to complete or attempt activity 9 The patient did not perform the activity before the current illness or injury 88 Not attempted due to Medical conditions or safety concerns Mental Status/Objective Comprehension: 7 Expression: 7 Social Interaction: 7 Problem Solvin Memory: 7 ADL-Treatment Feedin (Set up) Eating (QC): 5 Groomin (Set up in chair to brush and blow dry hair.) Oral Hygiene (QC): 5 Bathin (SBA in shower. Pt. issued LH sponge as well.) Shower/Bathe Self (QC): 4 Upper Extremity Dressin Upper Body Dressing (QC): 4 Lower Extremity Dressin (Min assist to correctly put on pants over feet. Otherwise, pt. able to pull feet up to her to don/doff slipper socks.) Lower Body Dressing (QC): 4 On/Off Footwear (QC): 4 Toiletin (Pt was incontinent of urine while seated in chair.) Toileting Hygiene (QC): 1 Toilet/Commode Transfer: 3 Toilet Transfer (QC): 3 Shower: 4 (CGA to transfer into shower.) Assessment/Plan Assessment and Plan Assess & Plan/Chief Complaint Assessment: 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 Acute on chronic depression Plan: IRF protocols Home meds Pain meds Dr Greco appreciated Self caths and bladder scan prn daily BM regimen to increase if no BM today since she is refusing everything except Colace today 10/09/[address] Mcfarland and Dr Greco and Dr Sahu and Dr Martinez Monitor labs Anticoagulation once no longer a risk for bleeding Rest breaks needed in-between therapies Spoke to her about a senior living placement if she needed slower rehab pace Nausea and depression addressed by PCP (1) Myopathy (2) Atrial fibrillation with rapid ventricular response (3) Palpitations (4) Nausea (5) Headache (6) Atrial fibrillation (7) Iron deficiency (8) Fever (9) Urinary retention (10) Anemia (11) Depression (12) Dyspnea (13) Edema (14) Cardiac murmur (15) UTI (urinary tract infection) (16) GERD (gastroesophageal reflux disease) (17) Cancer of spinal column (18) Debility (19) Late eff nerv injury trnk NEC (20) Leg weakness (21) Anticoagulant long-term use (22) Atrial fibrillation with rapid ventricular response (23) Transfusion of blood during current hospitalization (24) Self-catheterizes urinary bladder (25) Bacteremia due to Streptococcus YURI MARSHALL DO October 09, 2018 08:26
[2018-10-09] MEDS: DOCUSATE SODIUM 100 MG (COLACE) CAP PO PRN (08:32)
[2018-10-09] MEDS: CATHETER FLUSH 10 ML SYR IV PRN (08:33)
--- NOTE | 2018-10-09 10:16 | Cardiology Progress Note ---
Subjective Date Seen by Provider: October 09, 2018 Time Seen by Provider: 10:14 Subjective/Events-last exam patient is receiving physical therapy, complaining of generalized weakness. Denied any chest pain. No palpitation Review of Systems General: No Chills, No Night Sweats; Fatigue, Malaise; No Appetite, No Other HEENT: No Head Aches, No Visual Changes, No Eye Pain, No Ear Pain, No Dysphasia , No Sinus Congestion, No Post Nasal Drip, No Sore Throat, No Other Pulmonary: No Dyspnea, No Cough, No Pleuritic Chest Pain, No Other Cardiovascular: No: Chest Pain, Palpitations, Orthopnea, Paroxysmal Noc. Dyspnea, Edema, Lt Headedness, Other Objective-Cardiology Exam Last Set of Vital Signs Vital Signs 10/09/18 10/09/18 05:52 07:04 Temp 99.4 Pulse 77 Resp 20 B/P (MAP) 135/68 (90) Pulse Ox 96 O2 Delivery Room Air Capillary Refill : I&O Intake and Output 10/09/18 00:00 Intake Total 950 ml Output Total 725 ml Balance 225 ml Intake Oral 950 ml Output Urine Total 725 ml Bladder Scan Volume Amount 384 ml # Voids 3 General: Alert, Oriented X3, Cooperative HEENT: Atraumatic, PERRLA Neck: Supple, No JVD, No Thyromegaly Lungs: Clear to Auscultation, Normal Air Movement Heart: Regular Rate, Normal S1, Normal S2, No Murmurs Abdomen: Normal Bowel Sounds, Soft, No Tenderness, No Hepatosplenomegaly, No Masses Extremities: No Clubbing, No Cyanosis, No Edema, Normal Pulses, No Tenderness/ Swelling Skin: No Rashes, No Breakdown, No Significant Lesion Neuro: Normal Gait, Normal Speech, Strength at 5/5 X4 Ext, Normal Tone, Sensation Intact Psych/Mental Status: Mental Status NL, Mood NL A/P-Cardiology Admission Diagnosis Strep bacteremia Atrial fibrillation/flutter Anemia Generalized debility Assessment/Plan Status post Streptococcus bacteremia, fever and chills and generalized weakness , started on Rocephin and vancomycin, managed by primary care physician, TITUS done 09/23/18 revealed mild with no vegetation to valves, received Rocephin for 11 days last dose on 10/04, received 4 day of Vanco. better at this time, continue to monitor Generalized debility/weakness- continue PT Paroxysmal atrial fibrillation/flutter, currently back in sinus rhythm, maintained on Amiodarone. Dr. Martinez following, planning for possible ablation later this week. Anemia, has been on iron supplement, s/p blood transfusion. Currently off all OAC. EGD/colonoscopy done revealed no active bleeding, continue to monitor H&H History of chronic anticoagulation, had GI bleed on Pradaxa, intolerant to Coumadin. Xarelto was discontinued secondary to worsening anemia History of multiple episodes of GI bleed. Had workup done by Dr. Alberts and she was restarted on Xarelto, stopped for now and monitor H&H, reportedly had AVM as a source of the intermittent GI bleed Questionable underlying sleep apnea, Dr. Cheng following. Status post iron transfusion with questionable allergic reaction, had similar reaction to different iron product with generalized weakness and generalized body ache, has been managed by Dr. Nicholas History of abnormal baseline EKG with first-degree AV block and right bundle branch block, right ventricular hypertrophy pattern. History of syncope while on atenolol was unable to tolerate the medication in the past. History of pancreatic nodule, had workup with Dr. Alberts Family history of CVA Clinical Quality Measures DVT/VTE Risk/Contraindication: Risk Factor Score Per Nursin RFS Level Per Nursing on Admit: 2=Moderate DAMON CLAUDIO MD October 09, 2018 10:15
[2018-10-09] MEDS: HYDROcodone/APAP 5 MG/325 MG (LORTAB) TAB PO PRN ×2 (10:27→22:30)
--- NOTE | 2018-10-09 10:40 | NUR ---
Pastoral care visit.
--- NOTE | 2018-10-09 11:50 | Occupational Ther Daily Note ---
OT Current Status-Daily Note Subjective Pt. reports having pain, "all over." Does not give a pain number. Has had pain medication. Physicians are aware. Appearance Pt. in bed. Declines showering but agrees to work with OT. Mental Status/Objective Patient Orientation: Person, Place, Time, Situation Therapy Code Descriptions/Definitions Functional [place] Measure: 0=Not Assessed/NA 4=Minimal Assistance 1=Total Assistance 5=Supervision or Setup 2=Maximal Assistance 6=Modified [place] 3=Moderate Assistance 7=Complete [place] Attachments: IV ADL-Treatment Therapy Code Descriptions/Definitions Functional [place] Measure: 0=Not Assessed/NA 4=Minimal Assistance 1=Total Assistance 5=Supervision or Setup 2=Maximal Assistance 6=Modified [place] 3=Moderate Assistance 7=Complete [place] Therapy Quality Codes: 6 Independent with activity with or without an assistive device 5 Patient requires set up or clean up by helper. Patient completes activity by themselves 4 Supervision or touching assist (CGA). [place] provide cues , steadying assist 3 The helper provides less than half the effort to complete the activity 2 The helper provides more than half the effort to complete the activity 1 Dependent. The helper does all the effort to complete an activity 7 Patient refused to complete or attempt activity 9 The patient did not perform the activity before the current illness or injury 88 Not attempted due to Medical conditions or safety concerns Toileting (FIM): 4 (Min assist to pull pants up. Pt. is able to cleanse self with increased time needed.) Toileting Hygiene (QC): 4 (Pt. is slightly incontinent in brief, but is able to cleanse self when this happens.) Transfers (B, C, W/C) (FIM): 3 (Mod assist at times to stand from chair level. CGA/Min assist to ambulate with walker into bathroom. Pt. requires increased time overall.) Toilet/Commode Transfer (FIM): 4 Toilet Transfer (QC): 4 Other Treatment Pt. is very tearful this a.m. Does not understand why she is having pain and seems to "be going backward." Multiple physicians speak with pt. this morning and give encouragement. This OT does as well and explains possible pain is joint pain from increased activity over the last couple of days. (Pt. in hospital with less movement previous to that.) Pt. is not fully able to articulate the pain other than it is all over. Pt. transferred to wheelchair after toilet task and came to therapy gym. Stood twice at parallel bar with emphasis to scoot forward in chair, place feet correctly, and push up from chair. Stands approximately 1 minute each time. Pt. requires increased encouragement and time to complete all task. Went back to room via wheelchair and pt. able to ambulate approximately 5 feet with walker to reclining chair. All needs met in room. Education OT Patient Education: Correct positioning, Exercise program, Modified ADL techniques, Progress toward Goal/Update tx plan, Purpose of tx/functional activities, Reviewed precautions, Rehab process, Transfer techniques Teaching Recipient: Patient Teaching Methods: Demonstration, Discussion Response to Teaching: Verbalize Understanding, Return Demonstration OT Short Term Goals Short Term Goals Time Frame: October 21, 2018 Eating(FIM): 5 Grooming(FIM): 5 Bathing(FIM): 5 Upper Body Dressing(FIM): 5 Lower Body Dressing(FIM): 5 Toileting(FIM): 5 Transfers (B,C,W/C) (FIM): 5 Toilet/Commode Transfer(FIM): 5 Shower Transfer(FIM): 4 Additional Short Term Goals: 1-Demonstrate ADL Tasks, 2-Verbalize Understanding , 3-ImproveStrength/Rafia 1=Demonstrate adherence to instructed precautions during ADL tasks. 2=Patient will verbalize/demonstrate understanding of assistive devices/ modifications for ADL. 3=Patient will improve strength/tolerance for activity to enable patient to perform ADL's. OT Custodial Goals Custodial Goals Time Frame: November 04, 2018 Eating (FIM): 6 Eating (QC): 6 Groomin Oral Hygiene (QC): 6 Bathing(FIM): 5 Shower/Bathe Self (QC): 5 Upper Body Dressing(FIM): 6 Upper Body Dressing (QC): 6 Lower Body Dressing(FIM): 6 Lower Body Dressing (QC): 6 On/Off Footwear (QC): 6 Toileting(FIM): 6 Toileting Hygiene (QC): 6 Transfers (B,C,W/C) (FIM): 6 Toilet/Commode Transfer(FIM): 6 Toilet/Commode Transfer (QC): 6 Shower Transfer(FIM): 5 Additional Goals: 1-Demonstrate ADL Tasks, 2-Verbalize Understanding, 3- ImproveStrength/Rafia 1=Demonstrate adherence to instructed precautions during ADL tasks. 2=Patient will verbalize/demonstrate understanding of assistive devices/ modifications for ADL. 3=Patient will improve strength/tolerance for activity to enable patient to perform ADL's. OT Education/Plan Problem List/Assessment Assessment: Decreased Activ Tolerance, Decreased UE Strength, Dependent Transfers, Impaired Funct Balance, Impaired I ADL's, Impaired Self-Care Skills Discharge Recommendations Plan/Recommendations: Continue POC Therapy D/C Recommendations: Assisted Living, Occupational Therapy Home Care Treatment Plan/Plan of Care Treatment,Training & Education: Yes Patient would benefit from OT for education, treatment and training to promote independence in ADL's, mobility, safety and/or upper extremity function for ADL' s. Plan of Care: ADL Retraining, Functional Mobility, Group Exercise/Act as Ind, UE Funct Exercise/Act Treatment Duration: November 04, 2018 Frequency: At least 5 of 7 days/Wk (IRF) Estimated Hrs Per Day: 1.5 hours per day Agreement: Yes Rehab Potential: Fair Time/GCodes Start Time: 08:30 Stop Time: 09:30 Total Time Billed (hr/min): 60 Billed Treatment Time 1, ADL x 45minutes, FA x 15minutes SADE YATES OT October 09, 2018 11:50
--- NOTE | 2018-10-09 12:00 | NUR ---
DR. PERDOMO HERE TO SEE PATIENT AND ADJUSTED PAIN MEDS AND ANTIDEPRESSANT.
--- NOTE | 2018-10-09 12:02 | Physical Therapy Daily Note ---
PT Daily Note-Current Subjective Pt sitting up in recliner upon arrival. Pt agrees to PT but reports feeling very fatigued & nauseated. Pain Numeric Pain Scale: 6 Location: Right, Left Location Body Site: Knee Pain Description: Ache Comment: Pt reports pain in back & B knees. Mental Status Patient Orientation: Person, Place, Situation Transfers Therapy Code Descriptions/Definitions Functional [place] Measure: 0=Not Assessed/NA 4=Minimal Assistance 1=Total Assistance 5=Supervision or Setup 2=Maximal Assistance 6=Modified [place] 3=Moderate Assistance 7=Complete [place] Therapy Quality Codes: 6 Independent with activity with or without an assistive device 5 Patient requires set up or clean up by helper. Patient completes activity by themselves 4 Supervision or touching assist (CGA). [place] provide cues , steadying assist 3 The helper provides less than half the effort to complete the activity 2 The helper provides more than half the effort to complete the activity 1 Dependent. The helper does all the effort to complete an activity 7 Patient refused to complete or attempt activity 9 The patient did not perform the activity before the current illness or injury 88 Not attempted due to Medical conditions or safety concerns Weight Bearing Right Lower Extremity: Right Full Weight Bearing Left Lower Extremity: Left Full Weight Bearing Exercises Supine Ex: Ankle pumps, Quad Set, Glut sets, Straight leg raise, Hip abd/add Supine Reps: 10 Treatments Pt completes Supine Ex in chair with RB as needed as GENERAL DOC & pt discuss medical history and what may be causing onset of current symptoms as well as how Therapy can improve her current status. Pt has all needs met at end of tx. Assessment Current Status: Fair Progress Pt's anxiety & pain limit participation. GENERAL DOC encourages pt to push self to improve current mobility & pain. PT Short Term Goals Short Term Goals Time Frame: October 14, 2018 Transfers (B,C,W/C) (FIM): 5 Gait (FIM): 2 Distance (FIM): 4=692-60 ft Gait Assistive Device: FWW PT Alf Goals Alf Goals PT Alf Goals Time Frame: October 25, 2018 Transfers (B,C,W/C) (FIM): 7 Sit to Lying (QC): 6 Lying-Sitting on Side/Bed(QC): 6 Sit to Stand (QC): 6 Roll Left to Right (QC): 6 Chair/[id number] Xfer(QC): 6 Car Transfer (QC): 6 Does the Patient Walk: Yes Gait (FIM): 6 Gait distance (FIM): 3=150 ft Walk 10 feet (QC): 6 Walk 10ft-Uneven Surface(QC): 5 Walk 50ft with 2 Turns (QC): 6 Walk 150 ft (QC): 6 Gait Assistive Device: FWW Does the Pt use WC or Scooter?: No Stairs (FIM): 2 # of Steps: 1 1 Step (curb) (QC): 6 4 Steps (QC): 88 12 Steps (QC): 88 Picking up an Object (QC): 88 PT Plan Problem List Problem List: Activity Tolerance, Functional Strength, Safety, Balance, Gait, Transfer Treatment/Plan Treatment Plan: Continue Plan of Care Treatment Plan: Bed Mobility, Education, Functional Activity [place], Functional Strength, Group Therapy, Gait, Safety, Therapeutic Exercise, Transfers Treatment Duration: October 25, 2018 Frequency: At least 5 of 7 days/Wk (IRF) Estimated Hrs Per Day: 1.5 hours per day Patient and/or Family Agrees t: Yes Safety Risks/Education Patient Education: Transfer Techniques, Correct Positioning, Disease Process, Safety Issues Teaching Recipient: Patient Teaching Methods: Discussion Response to Teaching: Verbalize Understanding Time/GCodes Time In: 1100 Time Out: 1200 Total Billed Treatment Time: 60 Total Billed Treatment 1, FA x4 (60m) G Codes Necessary: SINGH Jeffries PTA October 09, 2018 12:02
--- NOTE | 2018-10-09 12:30 | NUR ---
DR. CHURCHILL HERE TO SEE PATIENT. PATIENT STATES DOESN'T FEEL UP TO FLUTTER ABLATION ON SUNDAY SO POSTPONED. CLINICAL SERVICES CONSULTANT NOTIFIED.
--- NOTE | 2018-10-09 13:00 | NUR ---
DR. MARSHALL INFORMED PATIENT ONLY WANTS TO TAKE COLACE BID TODAY FOR BOWELS. DR. MARSHALL STATES WE WILL TRY STRONGER MEDS FOR BOWELS TOMORROW IF NO SUCCESS TODAY.
--- NOTE | 2018-10-09 13:39 | Cardiology Progress Note ---
Cardiology SOAP Progress Note Subjective: Patient is not feeling well today. Objective: I&O/Vital Signs 10/09/18 10/09/18 10/09/18 05:52 07:04 09:00 Temp 99.4 Pulse 73 77 Resp 20 B/P (MAP) 135/68 (90) Pulse Ox 96 O2 Delivery Room Air Room Air 10/09/18 00:00 Intake Total 700 ml Output Total 425 ml Balance 275 ml Weight (Pounds): 174 Weight (Ounces): 0.0 Weight (Calculated Kilograms): [id number] Constitutional: No appears stated age, No AAO x 3, No apparent distress, No PERRL, No well-developed, No well-nourished, No other Respiratory: No accessory muscle use, No respiratory distress, No chest tender , No chest expansion is symmetric; chest is bilaterally symmetric; No lungs clear to percussion; lungs clear to auscultation; No crackles, No rhonchi, No rales, No stridor, No wheezing, No pleural rub, No other Cardiovascular: regular rate-rhythm; No irregularly irregular, No extra beats, No parasternal heave is noted, No JVD, No edema, No bradycardia, No tachycardia , No point of maximal impulse, No cardiac thrills are palpable; S1 and S2; No gallop/S3, No gallop/S4, No diastolic murmur, No systolic murmur, No friction rub, No click, No other Gastrointestional: No tender, No soft, No round, No distended, No pulsatile mass, No organomegaly, No guarding, No rebound, No tenderness, No hernia, No mass, No audible bowel sounds, No abnormal bowel sounds, No abdominal bruits, No spleenomegaly, No other Extremities: No normal range of motion, No non-tender, No normal inspection, No pedal edema, No calf tenderness, No normal capillary refill, No pelvis stable , No calf tenderness, No inflammation, No pedal edema, No slow capillary refill , No swelling, No other, No abrasion, No clubbing, No cyanosis, No ecchymosis, No laceration, No no lower extremity edema bilateral, No significant edema, No tenderness, No wound Neurologic/Psychiatric: no motor/sensory deficits, alert, normal mood/affect, oriented x 3 Skin: pallor A/P: Assessment/Dx: Typical atrial flutter, Paroxysmal atrial fibrillation, Recent GI bleeding Plan: Typical atrial flutter, I spoke at length to the patient and Dr. Sahu. We had previously arranged right-sided typical atrial flutter ablation for Sunday, however patient is requesting today to postpone it since she is not feeling well. I will postpone the procedure to a later date. Paroxysmal atrial fibrillation, currently in sinus rhythm. Continue amiodarone. No oral anticoagulation due to recent GI bleeding. Recent GI bleeding, not on any anticoagulation at this point in time. Dr. Mcfarland following as well. Thank you for your consultation. Please call me if you have any questions. Jay Martinez MD, FACP, FACC, [facility], [facility], CCDS Interventional Cardiology Cardiac Electrophysiology Vascular Medicine and Endovascular Interventions Tracy MARTINEZ MD October 09, 2018 13:39
--- NOTE | 2018-10-09 14:09 | Therapy Group Daily Note ---
Therapy Daily Group Note Patient Education Topic Energy Cons, Exercises Exercises LE Seated Exercise, ROM, Stretching, UE Exercise Session Ratio (pt:therapist): 4:1 Goal of Session: Education on ARU Expectations, Energy Conservation Tech., UE/ LE Strengthing Goal Met for this Session: Yes Pt Benefit of Group: Contributions to Others, F/U Use of Strategies @Home, Increased Functional Safety, Increased Functional Strength, Recognition of Peers , Socialization Other/Notes Pt perform functional mobility to OT/PT group in [facility] area. Group consisted of introductions (name, place living, favorite hobby), socialization, ARU expectations/description, and UE/LE seated exercises. Pt able to introduce self then actively listened to peers. Pt acknowledged understanding of ARU by verbalizing in affirmative. Pt demo ability to complete UE/LE seated exercises without difficulty. Using light weight dice pt demo ability to throw dice and which number it lands on was the reps the patient completed as a group. patient has to instruct the other group member of the exercise. After therapy, pt lying in bed with call light/phone in reach. All needs met in room. Start Time: 13:00 Stop Time: 14:00 Total Billed Treatment GRP 60 minutes SARI RICARDO OT October 09, 2018 14:09
--- NOTE | 2018-10-09 14:15 | NUR ---
WAS INCONTINENT OF URINE IN BRIEF, THEN VOIDED 100 CC IN TOILET. BLADDER SCAN SHOWED 211 CC.
--- NOTE | 2018-10-09 15:10 | NUR ---
Spoke with pt in reference to intermittent straight catheterization. Went over signs and symptoms of UTI and distended bladder. Discussed need for catheterization and times needed. Spoke with pt when to call Dr office. Discussed step by step details on procedure for catheterization. Pt given handout and pt verbalized understanding with no question. Pt reports she is going to attempt practicing next time catheterization is needed. Pt also given supplies for home use.
--- NOTE | 2018-10-09 15:15 | NUR ---
JOSE, EDUCATION NURSE, DID TEACHING ON INTERMITTENT CATHETERIZATION. MATERIALS LEFT IN ROOM.
[2018-10-09] MEDS: TAMSULOSIN 0.4 MG (FLOMAX) CAP PO SCH (17:31)
[2018-10-09 17:34] VITALS: BP 156/73
--- NOTE | 2018-10-09 18:00 | NUR ---
NAUSEA BETTER THIS AFTERNOON. LOW GRADE TEMP.
[2018-10-09] MEDS: POLYETHYLENE GLYCOL 17 GM (MIRALAX) PACK PO SCH (19:42)
[2018-10-09] MEDS: DILTIAZEM 240 MG (CARDIZEM CD) CAP PO SCH (20:13)
[2018-10-09] MEDS: LOSARTAN 100 MG (COZAAR) TABLET PO SCH (20:14)
[2018-10-10 05:03] VITALS: BP 101/63
[2018-10-10] MEDS: BETHANECHOL 25 MG (URECHOLINE) TAB PO SCH ×4 (06:28→20:02)
[2018-10-10] MEDS: PANTOPRAZOLE 40 MG (PROTONIX) TAB PO SCH ×2 (06:28→20:03)
[2018-10-10] MEDS: ONDANSETRON 4 MG/2 ML (SDV) Z0FRAN IVP PRN ×3 (06:28→15:26)
[2018-10-10] MEDS: CATHETER FLUSH 10 ML SYR IV SCH ×4 (06:29→19:53)
--- NOTE | 2018-10-10 08:19 | PM&R Progress Note ---
Subjective HPI/CC On Admission Date Seen by Provider: October 10, 2018 Time Seen by Provider: 08:30 Chief complaint: Myopathy with debility. HPI: This is a 68[address] 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 Pt has also had some urinary retention, Dr. Greco has been consulted and recommended self caths once a day with bladder scanning as needed and due to all of the 14 days of hospital stay she has become very debilitated and prior level of functioning was independent with use of a cane and now she can only take a few steps to go to the toilet. She did have a low grade fever today, sepsis workup with laboratory was ordered by Dr. Mcfarland to assess for any type of sepsis but we will continue the workup with Dr. Sahu's help along with Dr. Mcfarland, Dr. Cheng and Dr. Greco while she is on the inpatient rehab unit prior to discharge home to live independently. Subjective/Events-last exam Patient doing much better today Maximum temperature at 99.5 Urine is cloudy and has an odor so Dr. Greco has ordered a urine culture and started Macrobid Had a small amount of dry heaves this morning Refuses aggressive bowel regimen so will encourage her to take stool softeners Low blood pressure will be updated to Dr. Mcfarland Conferred with RN Reviewed therapy notes Everything else remained stable Slow progress and she is chronically disabled Review of Systems General: Fatigue Neurological: Weakness, Numbness, Incoordination Objective Exam Vital Signs Vital Signs Date Time Temp Pulse Resp B/P (MAP) Pulse Ox O2 Delivery O2 Flow Rate FiO2 10/10/18 09:25 Room Air 10/10/18 06:58 66 10/10/18 05:03 99.4 16 101/63 (76) 96 Capillary Refill : General Appearance: No Apparent Distress, WD/WN, Chronically ill HEENT: PERRL/EOMI, Normal ENT Inspection, Pharynx Normal, Moist Mucous Membranes Neck: Full Range of Motion, Normal Inspection, Non Tender, Supple Respiratory: Chest Non Tender, Lungs Clear, Normal Breath Sounds, No Accessory Muscle Use, No Respiratory Distress Cardiovascular: Regular Rate, Rhythm, No JVD, No Murmur, Normal Peripheral Pulses, Systolic Murmur Gastrointestinal: Normal Bowel Sounds, No Organomegaly, No Pulsatile Mass, Non Tender, Soft Back: Normal Inspection, No CVA Tenderness, No Vertebral Tenderness Extremity: Normal Capillary Refill, Normal Inspection, Normal Range of Motion, Non Tender, No Calf Tenderness, Pedal Edema Neurologic/Psychiatric: Alert, Oriented x3, No Motor/Sensory Deficits (except generalized weakness all extremiteis 4/5), Normal Mood/Affect, slice plug cutter operator helper II-XII Norm as Tested, Abnormal Gait, Depressed Affect, Motor Weakness Skin: Normal Color, Warm/Dry Lymphatic: No Adenopathy Results/Procedures Lab Patient resulted labs reviewed. FIM Transfers Therapy Code Descriptions/Definitions Functional [place] Measure: 0=Not Assessed/NA 4=Minimal Assistance 1=Total Assistance 5=Supervision or Setup 2=Maximal Assistance 6=Modified [place] 3=Moderate Assistance 7=Complete [place] Therapy Quality Codes: 6 Independent with activity with or without an assistive device 5 Patient requires set up or clean up by helper. Patient completes activity by themselves 4 Supervision or touching assist (CGA). [place] provide cues , steadying assist 3 The helper provides less than half the effort to complete the activity 2 The helper provides more than half the effort to complete the activity 1 Dependent. The helper does all the effort to complete an activity 7 Patient refused to complete or attempt activity 9 The patient did not perform the activity before the current illness or injury 88 Not attempted due to Medical conditions or safety concerns Mental Status/Objective Comprehension: 7 Expression: 7 Social Interaction: 7 Problem Solvin Memory: 7 ADL-Treatment Feedin (Set up) Eating (QC): 5 Groomin (Set up in chair to brush and blow dry hair.) Oral Hygiene (QC): 5 Bathin (SBA in shower. Pt. issued LH sponge as well.) Shower/Bathe Self (QC): 4 Upper Extremity Dressin Upper Body Dressing (QC): 4 Lower Extremity Dressin (Min assist to correctly put on pants over feet. Otherwise, pt. able to pull feet up to her to don/doff slipper socks.) Lower Body Dressing (QC): 4 On/Off Footwear (QC): 4 Toiletin (Min assist to pull pants up. Pt. is able to cleanse self with increased time needed.) Toileting Hygiene (QC): 4 (Pt. is slightly incontinent in brief, but is able to cleanse self when this happens.) Toilet/Commode Transfer: 4 Toilet Transfer (QC): 4 Shower: 4 (CGA to transfer into shower.) Assessment/Plan Assessment and Plan Assess & Plan/Chief Complaint Assessment: 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 Acute on chronic depression Plan: IRF protocols Home meds Pain meds Dr Greco appreciated Self caths and bladder scan prn daily BM regimen to increase if no BM today since she is refusing everything except Colace today 10/10/[address] Mcfarland and Dr Greco and Dr Sahu and Dr Martinez Monitor labs Anticoagulation once no longer a risk for bleeding Rest breaks needed in-between therapies Spoke to her about a halfway placement if she needed slower rehab pace Nausea and depression addressed by PCP and much improved today 10/10/18 (1) Myopathy (2) Atrial fibrillation with rapid ventricular response (3) Palpitations (4) Nausea (5) Headache (6) Atrial fibrillation (7) Iron deficiency (8) Fever (9) Urinary retention (10) Anemia (11) Depression (12) Dyspnea (13) Edema (14) Cardiac murmur (15) GERD (gastroesophageal reflux disease) (16) Cancer of spinal column (17) Debility (18) Late eff nerv injury trnk NEC (19) Leg weakness (20) Anticoagulant long-term use (21) Atrial fibrillation with rapid ventricular response (22) Transfusion of blood during current hospitalization (23) Self-catheterizes urinary bladder (24) Bacteremia due to Streptococcus (25) Fever (26) UTI (urinary tract infection) YURI MARSHALL DO October 10, 2018 08:19
--- NOTE | 2018-10-10 08:37 | Cardiology Progress Note ---
Subjective Date Seen by Provider: October 10, 2018 Time Seen by Provider: 08:36 Subjective/Events-last exam Patient is in bed, feeling better today, no chest pain Review of Systems General: No Chills, No Night Sweats; Fatigue; No Malaise, No Appetite, No Other HEENT: No Head Aches, No Visual Changes, No Eye Pain, No Ear Pain, No Dysphasia , No Sinus Congestion, No Post Nasal Drip, No Sore Throat, No Other Pulmonary: No Dyspnea, No Cough, No Pleuritic Chest Pain, No Other Cardiovascular: No: Chest Pain, Palpitations, Orthopnea, Paroxysmal Noc. Dyspnea, Edema, Lt Headedness, Other Objective-Cardiology Exam Last Set of Vital Signs Vital Signs 10/10/18 10/10/18 05:03 06:58 Temp 99.4 Pulse 66 Resp 16 B/P (MAP) 101/63 (76) Pulse Ox 96 O2 Delivery Room Air Capillary Refill : I&O Intake and Output 10/10/18 00:00 Intake Total 1000 ml Output Total 450 ml Balance 550 ml Intake Oral 1000 ml Output Urine Total 450 ml Bladder Scan Volume Amount 299 ml 211 ml # Voids 2 General: Alert, Oriented X3, Cooperative HEENT: Atraumatic, PERRLA Neck: Supple, No JVD, No Thyromegaly Lungs: Clear to Auscultation, Normal Air Movement Heart: Regular Rate, Normal S1, Normal S2, No Murmurs Abdomen: Normal Bowel Sounds, Soft, No Tenderness, No Hepatosplenomegaly, No Masses Extremities: No Clubbing, No Cyanosis, No Edema, Normal Pulses, No Tenderness/ Swelling Skin: No Rashes, No Breakdown, No Significant Lesion Neuro: Normal Gait, Normal Speech, Strength at 5/5 X4 Ext, Normal Tone, Sensation Intact Psych/Mental Status: Mental Status NL, Mood NL A/P-Cardiology Admission Diagnosis Strep bacteremia Atrial fibrillation/flutter Anemia Generalized debility Assessment/Plan Status post Streptococcus bacteremia, fever and chills and generalized weakness , started on Rocephin and vancomycin, managed by primary care physician, TITUS done 09/23/18 revealed mild with no vegetation to valves, received Rocephin for 11 days last dose on 10/04, received 4 day of Vanco. better at this time, continue to monitor Generalized debility/weakness- continue PT Paroxysmal atrial fibrillation/flutter, currently back in sinus rhythm, maintained on Amiodarone. Dr. Martinez following, ablation procedure was postponed. Continue to monitor rhythm Anemia, has been on iron supplement, s/p blood transfusion. Currently off all OAC. EGD/colonoscopy done revealed no active bleeding, continue to monitor H&H History of chronic anticoagulation, had GI bleed on Pradaxa, intolerant to Coumadin. Xarelto was discontinued secondary to worsening anemia History of multiple episodes of GI bleed. Had workup done by Dr. Alberts and she was restarted on Xarelto, stopped for now and monitor H&H, reportedly had AVM as a source of the intermittent GI bleed Questionable underlying sleep apnea, Dr. Cheng following. Status post iron transfusion with questionable allergic reaction, had similar reaction to different iron product with generalized weakness and generalized body ache, has been managed by Dr. Nicholas History of abnormal baseline EKG with first-degree AV block and right bundle branch block, right ventricular hypertrophy pattern. History of syncope while on atenolol was unable to tolerate the medication in the past. History of pancreatic nodule, had workup with Dr. Alberts Family history of CVA Clinical Quality Measures DVT/VTE Risk/Contraindication: Risk Factor Score Per Nursin RFS Level Per Nursing on Admit: 2=Moderate DAMON CLAUDIO MD October 10, 2018 08:37
[2018-10-10] MEDS: VITAMIN D3 1,000 UNITS (CHOLECALCIFEROL) TABLET PO SCH (08:42)
[2018-10-10] MEDS: SERTRALINE 50 MG (ZOLOFT) TABLET PO SCH ×2 (08:42→20:03)
[2018-10-10] MEDS: AMIODARONE 200 MG (CORDARONE) TAB PO SCH ×2 (08:42→20:02)
[2018-10-10] MEDS: DOCUSATE SODIUM 100 MG (COLACE) CAP PO PRN (08:42)
--- NOTE | 2018-10-10 08:59 | NUR ---
Dr. Parker to floor. Informed of low grade temp, nausea, and foul smelling urine.
--- NOTE | 2018-10-10 10:06 | Progress Note-Urology ---
Progress Note-Urology Progress Notes/Assess & Plan Progress/Assessment & Plan ALL PVR UNDER 300C. TODAY URINE IS CLOUDY AND FOUL SMELLING WITH LOW GRADE TEMP. PLAN STRAIGHT CATH AND SEND FOR UA AND CULTURE THEN START MACROBID [id number] BID WITH MEALS FOR 10 DAYS. Final Diagnosis URINE RETENTION AND UTI KEITH LYNN MD October 10, 2018 10:06
--- NOTE | 2018-10-10 10:11 | NUR ---
New Mepilex applied to back after shower.
--- NOTE | 2018-10-10 10:33 | NUR ---
Patient vomited in shower while working with OTAnna Parker on floor and informed. No new orders rec'd. Addendum: 10/10/18 at 1122 by JENNIFER JJ RN Patient vomited in the shower*
[2018-10-10 10:40] LABS: BILIRUBIN,URINE NEGATIVE (NEGATIVE); CLARITY,URINE CLEAR; COLOR,URINE YELLOW; GLUCOSE, URINE (UA) NEGATIVE (NEGATIVE); KETONES,URINE NEGATIVE (NEGATIVE); LEUKOCYTE ESTERASE ,URINE 1+ (NEGATIVE); NITRITE,URINE NEGATIVE (NEGATIVE); PH,URINE 6.5 (5-9); PROTEIN,URINE 3+ (NEGATIVE); UROBILINOGEN,URINE 1 MG/DL (NORMAL)
[2018-10-10 10:49] LABS: BACTERIA,URINE LARGE /HPF; RBC,URINE RARE /HPF; SQUAMOUS EPITHELIAL CELL,UR RARE /HPF
[2018-10-10] MEDS: NITROFURANTOIN 100 MG (MACROBID) CAPSULE PO SCH ×2 (11:06→20:02)
--- NOTE | 2018-10-10 12:00 | NUR ---
CORPORATE TRAVEL EXPERT met with patient and daughter, Saadia to review team conference summary. As patient continues to require min to mod assist for transfers and sit to stand, ambulating only short distances, min assist for lower body dressing and activity is limited due to pain and nausea, team has recommended patient be reevaluated at next team conference on 58. Patient and daughter are agreeable to this. As CORPORATE TRAVEL EXPERT was made aware that patient has been tearful about lack of progress, CORPORATE TRAVEL EXPERT reassured patient that current clinical barriers will resolve and allow additional progress. Patient reports increased depression due to hospitalization, as she feels that she has spent most of her adult life in hospitals or physician offices. Patient spoke of being tired of continuing to have health issues and finds it difficult to want to continue life with these challenges; however, Patient reports daughters as protective factors against suicide. Patient reports that antidepressant has been increased, CORPORATE TRAVEL EXPERT offered brief therapy as needed and recommended outpatient counseling upon hospital discharge. Patient appreciative of this. While reviewing team conference, Dr. Sahu assessed patient and recommended rigorous bowel regimen to cleanse colon, to attempt to alleviate nausea. Patient and daughter expresses no further concerns or questions at this time, CORPORATE TRAVEL EXPERT will continue to follow.
--- NOTE | 2018-10-10 12:11 | Physical Therapy Daily Note ---
PT Daily Note-Current Subjective Pt sitting up in recliner upon arrival. Pt agrees to PT but reports increased nausea shortly before tx began, Nurse gave nausea med. Pain Numeric Pain Scale: 6 Location: Right, Left Location Body Site: Knee Pain Description: Ache Mental Status Patient Orientation: Person, Place, Situation Transfers Therapy Code Descriptions/Definitions Functional [place] Measure: 0=Not Assessed/NA 4=Minimal Assistance 1=Total Assistance 5=Supervision or Setup 2=Maximal Assistance 6=Modified [place] 3=Moderate Assistance 7=Complete [place] Therapy Quality Codes: 6 Independent with activity with or without an assistive device 5 Patient requires set up or clean up by helper. Patient completes activity by themselves 4 Supervision or touching assist (CGA). [place] provide cues , steadying assist 3 The helper provides less than half the effort to complete the activity 2 The helper provides more than half the effort to complete the activity 1 Dependent. The helper does all the effort to complete an activity 7 Patient refused to complete or attempt activity 9 The patient did not perform the activity before the current illness or injury 88 Not attempted due to Medical conditions or safety concerns Scootin Supine to/from Sit: 4 Sit to/from Stand: 4 Sit to Lying (QC): 5 Sit to Stand (QC): 4 Weight Bearing Right Lower Extremity: Right Full Weight Bearing Left Lower Extremity: Left Full Weight Bearing Gait Training Does the Patient Walk?: Yes Distance (FIM): 1=up to 49 ft Distance: 12', 12' Walk 10 feet (QC): 4 Gait Level of Assist: 4 Gait Persons Needed: 1 Gait Assistive Device: FWW Pt walks with kyphotic posture, slow rosa, anxious about knees buckling. Wheelchair Training Does the Pt Use a Wheelchair?: Yes Wheelchair Distance: 7=788-37 ft Distance: 100' Wheelchair Level of Assist: 4 Wheel 50 ft with 2 turns (QC): 4 Type of Wheelchair: Manual Exercises Standing: Hip Abduction, Hamstring curls, Heel/toe raises, Weight shifts Standing Reps: 10 Treatments Pt completes Seated Ex in recliner. Pt transfers from recliner to standing then ambulates across room to W/C. Pt propels W/C from room, in hallway and to Therapy Gym. Pt completes Standing EX at //bars for strength & balance practice. Pt returns to W/C to rest before propelling it to room. Pt stands from W/C and ambulates across room to rest Supine in bed with all needs met. Assessment Current Status: Fair Progress Pt continues to remain anxious and reports nausea prior to tx. Pt at times lets this limit participation in tx. PT Short Term Goals Short Term Goals Time Frame: October 14, 2018 Transfers (B,C,W/C) (FIM): 5 Gait (FIM): 2 Distance (FIM): 3=616-76 ft Gait Assistive Device: FWW PT Fci Goals Fci Goals PT Fci Goals Time Frame: October 25, 2018 Transfers (B,C,W/C) (FIM): 7 Sit to Lying (QC): 6 Lying-Sitting on Side/Bed(QC): 6 Sit to Stand (QC): 6 Roll Left to Right (QC): 6 Chair/Eqh-mf-Cobbq Xfer(QC): 6 Car Transfer (QC): 6 Does the Patient Walk: Yes Gait (FIM): 6 Gait distance (FIM): 3=150 ft Walk 10 feet (QC): 6 Walk 10ft-Uneven Surface(QC): 5 Walk 50ft with 2 Turns (QC): 6 Walk 150 ft (QC): 6 Gait Assistive Device: FWW Does the Pt use WC or Scooter?: No Stairs (FIM): 2 # of Steps: 1 1 Step (curb) (QC): 6 4 Steps (QC): 88 12 Steps (QC): 88 Picking up an Object (QC): 88 PT Plan Problem List Problem List: Activity Tolerance, Functional Strength, Safety, Balance, Gait, Transfer, Bed Mobility Treatment/Plan Treatment Plan: Continue Plan of Care Treatment Plan: Bed Mobility, Education, Functional Activity Rafia, Functional Strength, Group Therapy, Gait, Safety, Therapeutic Exercise, Transfers Treatment Duration: October 25, 2018 Frequency: At least 5 of 7 days/Wk (IRF) Estimated Hrs Per Day: 1.5 hours per day Patient and/or Family Agrees t: Yes Safety Risks/Education Patient Education: Gait Training, Transfer Techniques, Correct Positioning, W/ C Management, Safety Issues Teaching Recipient: Patient Teaching Methods: Discussion Response to Teaching: Verbalize Understanding Time/GCodes Time In: 1100 Time Out: 1200 Total Billed Treatment Time: 60 Total Billed Treatment 1, GT (12m), EX x2 (33m) & FA (15m) G Codes Necessary: No TREIBER,SINGH SURFBOARD MAKER October 10, 2018 12:11
--- NOTE | 2018-10-10 12:42 | NUR ---
Dr. Sahu here to see patient. Informed of nausea and vomiting and no BM since 10/06/18. Patient refused Miralax and Lactulose this AM. Stated that it would just make her "throw up". Requesting Colace only BID.
--- NOTE | 2018-10-10 12:44 | Progress Note (SOAP) ---
Subjective Date Seen by a Provider: October 10, 2018 Time Seen by a Provider: 12:42 Subjective/Events-last exam Fwup beta strep bacteremia, paroxysmal atrial fibrillation, chronic anemia, IV iron transfusion reaction, weakness, colonic polyps, history of AVMs on capsule endoscopy, urinary retention. C/O nausea. No BM for several days but refusing miralax. Objective Exam Vital Signs Date Time Temp Pulse Resp B/P (MAP) Pulse Ox O2 Delivery O2 Flow Rate FiO2 10/10/18 09:25 Room Air 10/10/18 06:58 66 10/10/18 05:03 99.4 68 16 101/63 (76) 96 Room Air 10/10/18 00:58 70 10/09/18 20:00 Room Air 10/09/18 19:00 78 10/09/18 17:34 99.5 80 16 156/73 (100) 97 Room Air 10/09/18 13:00 74 I & O 10/10/18 07:00 Intake Total 1050 ml Output Total 550 ml Balance 500 ml Capillary Refill : General Appearance: No Apparent Distress Neck: Supple Respiratory: Lungs Clear Cardiovascular: Regular Rate, Rhythm, Systolic Murmur Gastrointestinal: normal bowel sounds, soft, tenderness (LLQ tenderness) Extremity: Non Tender, No Calf Tenderness, No Pedal Edema Neurologic/Psychiatric: Alert, Oriented x3 Skin: Warm/Dry Results Lab Laboratory Tests 10/10/18 10:24: Urine Color YELLOW, Urine Clarity CLEAR, Urine pH 6.5, Urine Specific [place] 1.015L, Urine Protein 3+H, Urine Glucose (UA) NEGATIVE, Urine Ketones NEGATIVE, Urine Nitrite NEGATIVE, Urine Bilirubin NEGATIVE, Urine Urobilinogen 1, Urine Leukocyte Esterase 1+H, Urine RBC (Auto) 1+H, Urine RBC RARE, Urine WBC 5-10H, Urine Squamous Epithelial Cells RARE, Urine Crystals NONE, Urine Bacteria LARGEH , Urine Casts NONE, Urine Mucus NEGATIVE, Urine Culture Indicated YES Assessment/Plan Assessment/Plan Assess & Plan/Chief Complaint 1. Recent Strep Bacteremia--resolved 2. Paroxyxmal Atrial Fibrillation--back in NSR, on amiodarone, anticoagulants on hold due to anemia, EP discussing right heart ablation at end of week or next week due to A flutter progressing to A fib and will not need high dose anticoagulants for this 3. Iron Deficiency Anemia--H/H improved post transfusion and with hold of anticoagulants, will hold on lab draws for next couple of days and then recheck at end of week 4. Hypertension--some elevation so will increase losartan dose 5. Urinary Retention--on urecholine and flomax and improving 6. Weakness--PT/OT 7. Nausea--add reglan 8. Constipation--check KUB, miralax routinely Clinical Quality Measures DVT/VTE Risk/Contraindication: Risk Factor Score Per Nursin RFS Level Per Nursing on Admit: 2=Moderate ANTHONY PERDOMO DO October 10, 2018 12:44
--- NOTE | 2018-10-10 13:31 | Diagnostic Imaging Report ---
INDICATION: History of constipation and nausea. COMPARISON: 03/11/2017 FINDINGS: Multiple supine radiographic views of the abdomen were obtained and demonstrate nondistended loops of small bowel. There is no large collection of free peritoneal air. Moderate air and stool are seen scattered throughout the colon. No unexpected extraosseous calcifications or radiopaque foreign bodies are seen. Bony structures show no gross acute abnormalities. IMPRESSION: 1. Nonobstructed small bowel gas pattern. 2. Moderate colonic air and stool. Please correlate for constipation Dictated by: Dictated on workstation # [id number]
[2018-10-10] MEDS: PROMETHAZINE 25 MG (PHENERGAN) SUPP PR PRN (13:53)
--- NOTE | 2018-10-10 14:14 | Occupational Ther Daily Note ---
OT Current Status-Daily Note Subjective Pt. states that she is feeling better at beginning of treatment session. Appearance Pt. in bed. Agrees to shower. Mental Status/Objective Patient Orientation: Person, Place Therapy Code Descriptions/Definitions Functional [place] Measure: 0=Not Assessed/NA 4=Minimal Assistance 1=Total Assistance 5=Supervision or Setup 2=Maximal Assistance 6=Modified [place] 3=Moderate Assistance 7=Complete [place] Attachments: IV ADL-Treatment Therapy Code Descriptions/Definitions Functional [place] Measure: 0=Not Assessed/NA 4=Minimal Assistance 1=Total Assistance 5=Supervision or Setup 2=Maximal Assistance 6=Modified [place] 3=Moderate Assistance 7=Complete [place] Therapy Quality Codes: 6 Independent with activity with or without an assistive device 5 Patient requires set up or clean up by helper. Patient completes activity by themselves 4 Supervision or touching assist (CGA). [place] provide cues , steadying assist 3 The helper provides less than half the effort to complete the activity 2 The helper provides more than half the effort to complete the activity 1 Dependent. The helper does all the effort to complete an activity 7 Patient refused to complete or attempt activity 9 The patient did not perform the activity before the current illness or injury 88 Not attempted due to Medical conditions or safety concerns Grooming (FIM): 5 (Set up to blow dry and brush hair. Set up to fix hair otherwise.) Oral Hygiene (QC): 4 Bathing (FIM): 5 (SBA seated in shower.) Shower/Bathe Self (QC): 4 Upper Body (FIM): 5 Upper Body Dressing (QC): 4 Lower Body Dressing (FIM): 4 (Min assist in stance to pull up pants over hips. OT brought in AE for pt. to try, but is able to doff/don socks without it.) Lower Body Dressing (QC): 4 On/Off Footwear (QC): 4 Toileting (FIM): 4 (CGA in stance. Pt. is incontinent multiple times of urine in brief, but is able to clean ping area and change brief with SBA.) Toileting Hygiene (QC): 4 Transfers (B, C, W/C) (FIM): 3 (SBA supine-sit. Mod assist at times for sit- stand. Min assist to ambulate with walker.) Toilet/Commode Transfer (FIM): 3 Toilet Transfer (QC): 3 Shower Transfer(FIM): 4 Other Treatment Pt. agreed to shower. Pt. states that she was feeling okay at beginning of treatment. During treatment, became nauseated in shower and began to vomit. Nursing notified immediately. This went on several more times. After shower, pt. dressed in bathroom. Ambulated to chair in room to complete all grooming tasks for hair. Increased time needed. Stood several more times and eventually stayed in chair to wait for next PT session. All needs met. Education OT Patient Education: Correct positioning, Modified ADL techniques, Progress toward Goal/Update tx plan, Purpose of tx/functional activities, Reviewed precautions, Rehab process, Transfer techniques Teaching Recipient: Patient Teaching Methods: Demonstration, Discussion Response to Teaching: Verbalize Understanding, Return Demonstration OT Short Term Goals Short Term Goals Time Frame: October 21, 2018 Eating(FIM): 5 Grooming(FIM): 5 Bathing(FIM): 5 Upper Body Dressing(FIM): 5 Lower Body Dressing(FIM): 5 Toileting(FIM): 5 Transfers (B,C,W/C) (FIM): 5 Toilet/Commode Transfer(FIM): 5 Shower Transfer(FIM): 4 Additional Short Term Goals: 1-Demonstrate ADL Tasks, 2-Verbalize Understanding , 3-ImproveStrength/Rafia 1=Demonstrate adherence to instructed precautions during ADL tasks. 2=Patient will verbalize/demonstrate understanding of assistive devices/ modifications for ADL. 3=Patient will improve strength/tolerance for activity to enable patient to perform ADL's. OT Shelter Goals Bilingual Administrative Assistant Goals Time Frame: November 04, 2018 Eating (FIM): 6 Eating (QC): 6 Groomin Oral Hygiene (QC): 6 Bathing(FIM): 5 Shower/Bathe Self (QC): 5 Upper Body Dressing(FIM): 6 Upper Body Dressing (QC): 6 Lower Body Dressing(FIM): 6 Lower Body Dressing (QC): 6 On/Off Footwear (QC): 6 Toileting(FIM): 6 Toileting Hygiene (QC): 6 Transfers (B,C,W/C) (FIM): 6 Toilet/Commode Transfer(FIM): 6 Toilet/Commode Transfer (QC): 6 Shower Transfer(FIM): 5 Additional Goals: 1-Demonstrate ADL Tasks, 2-Verbalize Understanding, 3- ImproveStrength/Rafia 1=Demonstrate adherence to instructed precautions during ADL tasks. 2=Patient will verbalize/demonstrate understanding of assistive devices/ modifications for ADL. 3=Patient will improve strength/tolerance for activity to enable patient to perform ADL's. OT Education/Plan Problem List/Assessment Assessment: Decreased Activ Tolerance, Decreased UE Strength, Dependent Transfers, Impaired Funct Balance, Impaired I ADL's, Impaired Self-Care Skills Discharge Recommendations Plan/Recommendations: Continue POC Therapy D/C Recommendations: Home w/ Family Support, Occupational Therapy Home Care Comment To be determined. Treatment Plan/Plan of Care Treatment,Training & Education: Yes Patient would benefit from OT for education, treatment and training to promote independence in ADL's, mobility, safety and/or upper extremity function for ADL' s. Plan of Care: ADL Retraining, Functional Mobility, Group Exercise/Act as Ind, UE Funct Exercise/Act Treatment Duration: November 04, 2018 Frequency: At least 5 of 7 days/Wk (IRF) Estimated Hrs Per Day: 1.5 hours per day Agreement: Yes Rehab Potential: Fair Time/GCodes Start Time: 09:15 Stop Time: 10:45 Total Time Billed (hr/min): 90 Billed Treatment Time 1, ADL x 6 SADE YATES OT October 10, 2018 14:14
[2018-10-10 15:47] VITALS: BP 165/70
--- NOTE | 2018-10-10 16:02 | Physical Therapy Daily Note ---
PT Daily Note-Current Subjective Pt laying Supine in bed upon arrival. Nurse advised pt to receive Midline shortly and could interrupt tx. Pain Location: No Pain Reported Mental Status Patient Orientation: Person, Place, Situation Transfers Therapy Code Descriptions/Definitions Functional [place] Measure: 0=Not Assessed/NA 4=Minimal Assistance 1=Total Assistance 5=Supervision or Setup 2=Maximal Assistance 6=Modified [place] 3=Moderate Assistance 7=Complete [place] Therapy Quality Codes: 6 Independent with activity with or without an assistive device 5 Patient requires set up or clean up by helper. Patient completes activity by themselves 4 Supervision or touching assist (CGA). [place] provide cues , steadying assist 3 The helper provides less than half the effort to complete the activity 2 The helper provides more than half the effort to complete the activity 1 Dependent. The helper does all the effort to complete an activity 7 Patient refused to complete or attempt activity 9 The patient did not perform the activity before the current illness or injury 88 Not attempted due to Medical conditions or safety concerns Weight Bearing Right Lower Extremity: Right Full Weight Bearing Left Lower Extremity: Left Full Weight Bearing Exercises Supine Ex: Ankle pumps, Quad Set, Glut sets, Heel Slides, Straight leg raise, Hip abd/add Supine Reps: 15 Treatments Pt completes Supine EX then Nurse arrives to place Midline then TAPER PRINTED CIRCUIT LAYOUT returns to complete rest of Supine Ex in bed. Pt is resting at end of tx. Assessment Current Status: Fair Progress Pt reports continued nausea and fatigue during tx. PT Short Term Goals Short Term Goals Time Frame: October 14, 2018 Transfers (B,C,W/C) (FIM): 5 Gait (FIM): 2 Distance (FIM): 2=425-60 ft Gait Assistive Device: FWW Wheelchair Distance: 100' PT Fci Goals Hedis Coordinator Goals PT Fci Goals Time Frame: October 25, 2018 Transfers (B,C,W/C) (FIM): 7 Sit to Lying (QC): 6 Lying-Sitting on Side/Bed(QC): 6 Sit to Stand (QC): 6 Roll Left to Right (QC): 6 Chair/Ees-bp-Ayuhz Xfer(QC): 6 Car Transfer (QC): 6 Does the Patient Walk: Yes Gait (FIM): 6 Gait distance (FIM): 3=150 ft Walk 10 feet (QC): 6 Walk 10ft-Uneven Surface(QC): 5 Walk 50ft with 2 Turns (QC): 6 Walk 150 ft (QC): 6 Gait Assistive Device: FWW Does the Pt use WC or Scooter?: No Stairs (FIM): 2 # of Steps: 1 1 Step (curb) (QC): 6 4 Steps (QC): 88 12 Steps (QC): 88 Picking up an Object (QC): 88 PT Plan Problem List Problem List: Activity Tolerance, Functional Strength, Safety, Balance, Gait, Transfer Treatment/Plan Treatment Plan: Continue Plan of Care Treatment Plan: Bed Mobility, Education, Functional Activity Rafia, Functional Strength, Group Therapy, Gait, Safety, Therapeutic Exercise, Transfers Treatment Duration: October 25, 2018 Frequency: At least 5 of 7 days/Wk (IRF) Estimated Hrs Per Day: 1.5 hours per day Patient and/or Family Agrees t: Yes Safety Risks/Education Patient Education: Correct Positioning, Safety Issues Teaching Recipient: Patient Teaching Methods: Discussion Response to Teaching: Verbalize Understanding Time/GCodes Time In: 1400 Time Out: 1415 Total Billed Treatment Time: 30 Total Billed Treatment 1, EX (15m) & 1, EX (15m) Time: 9888-9694 & [id number] G Codes Necessary: SINGH Jeffries TAPER PRINTED CIRCUIT LAYOUT October 10, 2018 16:02
--- NOTE | 2018-10-10 16:18 | NUR ---
Dr. Sahu notified of KUB results.
[2018-10-10] MEDS: TAMSULOSIN 0.4 MG (FLOMAX) CAP PO SCH (17:10)
--- NOTE | 2018-10-10 17:15 | NUR ---
After much encouragement, patient states that she will take Miralax tonight at 2100. Will pass on in report.
[2018-10-10] MEDS: METOCLOPRAMIDE INJ 10 MG/2 ML (REGLAN) IVP SCH ×2 (18:40→19:53)
--- NOTE | 2018-10-10 18:42 | NUR ---
Midline will not flush. Patient refusing new IV at this time. Wants to wait for midline nurse in AM. Will take oral Zofran and Phenergan suppository tonight if needed.
--- NOTE | 2018-10-10 19:32 | Cardiology Progress Note ---
Cardiology SOAP Progress Note Subjective: No cardiac complaints. Objective: I&O/Vital Signs 10/10/18 10/10/18 10/10/18 09:25 12:25 15:47 Temp 96.9 Pulse 73 84 Resp 14 B/P (MAP) 165/70 (101) Pulse Ox 95 O2 Delivery Room Air Room Air 10/10/18 00:00 Intake Total 600 ml Output Total 300 ml Balance 300 ml Weight (Pounds): 174 Weight (Ounces): 0.0 Weight (Calculated Kilograms): 78.943863 Constitutional: No appears stated age, No AAO x 3, No apparent distress, No PERRL, No well-developed, No well-nourished, No other Respiratory: No accessory muscle use, No respiratory distress, No chest tender , No chest expansion is symmetric; chest is bilaterally symmetric; No lungs clear to percussion; lungs clear to auscultation; No crackles, No rhonchi, No rales, No stridor, No wheezing, No pleural rub, No other Cardiovascular: regular rate-rhythm; No irregularly irregular, No extra beats, No parasternal heave is noted, No JVD, No edema, No bradycardia, No tachycardia , No point of maximal impulse, No cardiac thrills are palpable; S1 and S2; No gallop/S3, No gallop/S4, No diastolic murmur, No systolic murmur, No friction rub, No click, No other Gastrointestional: No tender, No soft, No round, No distended, No pulsatile mass, No organomegaly, No guarding, No rebound, No tenderness, No hernia, No mass, No audible bowel sounds, No abnormal bowel sounds, No abdominal bruits, No spleenomegaly, No other Extremities: No normal range of motion, No non-tender, No normal inspection, No pedal edema, No calf tenderness, No normal capillary refill, No pelvis stable , No calf tenderness, No inflammation, No pedal edema, No slow capillary refill , No swelling, No other, No abrasion, No clubbing, No cyanosis, No ecchymosis, No laceration, No no lower extremity edema bilateral, No significant edema, No tenderness, No wound Neurologic/Psychiatric: no motor/sensory deficits, alert, normal mood/affect, oriented x 3 Skin: pallor Results/Procedures: Labs Laboratory Tests 10/10/18 10:24: Urine Color YELLOW, Urine Clarity CLEAR, Urine pH 6.5, Urine Specific [place] 1.015L, Urine Protein 3+H, Urine Glucose (UA) NEGATIVE, Urine Ketones NEGATIVE, Urine Nitrite NEGATIVE, Urine Bilirubin NEGATIVE, Urine Urobilinogen 1, Urine Leukocyte Esterase 1+H, Urine RBC (Auto) 1+H, Urine RBC RARE, Urine WBC 5-10H, Urine Squamous Epithelial Cells RARE, Urine Crystals NONE, Urine Bacteria LARGEH , Urine Casts NONE, Urine Mucus NEGATIVE, Urine Culture Indicated YES A/P: Assessment/Dx: Typical atrial flutter, Paroxysmal atrial fibrillation, Recent GI bleeding Plan: Typical atrial flutter, I spoke at length to the patient and Dr. Sahu. We had previously arranged right-sided typical atrial flutter ablation for Sunday, however patient requested to postpone it since she is not feeling well. I will postpone the procedure to a later date. Paroxysmal atrial fibrillation, currently in sinus rhythm. Continue amiodarone. No oral anticoagulation due to recent GI bleeding. Recent GI bleeding, not on any anticoagulation at this point in time. Dr. Mcfarland following as well. Thank you for your consultation. Please call me if you have any questions. Jay Martinez MD, FACP, FACC, [facility] [place], FHRS, CCDS Interventional Cardiology Cardiac Electrophysiology Vascular Medicine and Endovascular Interventions Tracy MARTINEZ MD October 10, 2018 7:32 pm
[2018-10-10] MEDS: DOCUSATE SODIUM 100 MG (COLACE) CAP PO SCH (20:02)
[2018-10-10] MEDS: LOSARTAN 100 MG (COZAAR) TABLET PO SCH (20:02)
[2018-10-10] MEDS: DILTIAZEM 240 MG (CARDIZEM CD) CAP PO SCH (20:03)
[2018-10-10] MEDS: POLYETHYLENE GLYCOL 17 GM (MIRALAX) PACK PO SCH (20:07)
[2018-10-10] MEDS ORDERED: NITROFURANTOIN 100 MG (MACROBID) CAPSULE PO SCH (21:00)
[2018-10-11 05:00] VITALS: BP 160/68
[2018-10-11] MEDS: BETHANECHOL 25 MG (URECHOLINE) TAB PO SCH ×4 (05:34→20:56)
[2018-10-11] MEDS: PANTOPRAZOLE 40 MG (PROTONIX) TAB PO SCH ×2 (05:34→20:55)
[2018-10-11] MEDS: ONDANSETRON 4 MG (ZOFRAN) ORAL DISSOLVE TAB PO PRN (05:34)
[2018-10-11 06:33] LABS: BASOPHILS % (AUTO) 0 % (0-10); EOSINOPHILS # (AUTO) 0.1 10^3/uL (0.0-0.3); EOSINOPHILS % (AUTO) 1 % (0-10); HEMATOCRIT 35 % (35-52); HEMOGLOBIN 10.6 G/DL (11.5-16.0); LYMPHOCYTES # (AUTO) 0.9 X 10^3 (1.0-4.0); LYMPHOCYTES % (AUTO) 13 % (12-44); MEAN CORPUSCULAR HEMOGLOBIN 26 PG (25-34); MEAN CORPUSCULAR HGB CONC 30 G/DL (32-36); MEAN CORPUSCULAR VOLUME 87 FL (80-99); MEAN PLATELET VOLUME 9.5 FL (7.4-10.4); MONOCYTES # (AUTO) 0.8 X 10^3 (0.0-1.0); MONOCYTES % (AUTO) 11 % (0-12); NEUTROPHILS % (AUTO) 74 % (42-75); PLATELET COUNT 318 10^3/uL (130-400); RED CELL DISTRIBUTION WIDTH 21.3 % (10.0-14.5); WHITE BLOOD COUNT 6.8 10^3/uL (4.3-11.0)
[2018-10-11 06:58] LABS: ALANINE AMINOTRANSFERASE 19 U/L (0-55); ALBUMIN 3.3 GM/DL (3.2-4.5); ALKALINE PHOSPHATASE 90 U/L (40-136); BILIRUBIN,TOTAL 0.6 MG/DL (0.1-1.0); BUN/CREATININE RATIO 13; CALCIUM 9.1 MG/DL (8.5-10.1); CARBON DIOXIDE 23 MMOL/L (21-32); CHLORIDE 101 MMOL/L (98-107); CREATININE SERUM 0.89 MG/DL (0.60-1.30); GFR ESTIMATED > 60; GLUCOSE 95 MG/DL (70-105); POTASSIUM 3.8 MMOL/L (3.6-5.0); SODIUM 137 MMOL/L (135-145); TOTAL PROTEIN 7.4 GM/DL (6.4-8.2)
--- NOTE | 2018-10-11 08:00 | NUR ---
BETTER SPIRITS SINCE ANTIDEPRESSANT HAS BEEN INCREASED. MEDICATED WITH PHENERGAN SUPPOSITORY FOR NAUSEA. REFUSED BREAKFAST. URINE SMELL MUCH IMPROVED SINCE STARTING ON MACROBID. CONTINUES TO HAVE LOW GRADE TEMP. AGREEABLE TO MIRALAX AND COLACE THIS AM SINCE GOING ON DAY WITHOUT BM.
--- NOTE | 2018-10-11 08:05 | Cardiology Progress Note ---
Subjective Date Seen by Provider: October 11, 2018 Time Seen by Provider: 08:04 Subjective/Events-last exam patient is a Linq down in bed, feeling better, reporting improvement. Still having generalized weakness Review of Systems General: No Chills, No Night Sweats; Fatigue, Malaise; No Appetite, No Other HEENT: No Head Aches, No Visual Changes, No Eye Pain, No Ear Pain, No Dysphasia , No Sinus Congestion, No Post Nasal Drip, No Sore Throat, No Other Pulmonary: No Dyspnea, No Cough, No Pleuritic Chest Pain, No Other Cardiovascular: No: Chest Pain, Palpitations, Orthopnea, Paroxysmal Noc. Dyspnea, Edema, Lt Headedness, Other Objective-Cardiology Exam Last Set of Vital Signs Vital Signs 10/11/18 05:00 Temp 99.6 Pulse 72 Resp 18 B/P (MAP) 160/68 (98) Pulse Ox 93 O2 Delivery Room Air Capillary Refill : I&O Intake and Output 10/11/18 00:00 Intake Total 850 ml Output Total 500 ml Balance 350 ml Intake Oral 850 ml Output Urine Total 500 ml # Voids 2 General: Alert, Oriented X3, Cooperative HEENT: Atraumatic, PERRLA Neck: Supple, No JVD, No Thyromegaly Lungs: Clear to Auscultation, Normal Air Movement Heart: Regular Rate, Normal S1, Normal S2, No Murmurs Abdomen: Normal Bowel Sounds, Soft, No Tenderness, No Hepatosplenomegaly, No Masses Extremities: No Clubbing, No Cyanosis, No Edema, Normal Pulses, No Tenderness/ Swelling Skin: No Rashes, No Breakdown, No Significant Lesion Neuro: Normal Gait, Normal Speech, Strength at 5/5 X4 Ext, Normal Tone, Sensation Intact Psych/Mental Status: Mental Status NL, Mood NL Results Lab Laboratory Tests 10/11/18 06:25 A/P-Cardiology Admission Diagnosis Strep bacteremia Atrial fibrillation/flutter Anemia Generalized debility Assessment/Plan Status post Streptococcus bacteremia, fever and chills and generalized weakness , started on Rocephin and vancomycin, managed by primary care physician, TITUS done 09/23/18 revealed mild with no vegetation to valves, received Rocephin for 11 days last dose on 10/04, received 4 day of Vanco. better at this time, continue to monitor Generalized debility/weakness- continue PT Paroxysmal atrial fibrillation/flutter, currently back in sinus rhythm, maintained on Amiodarone. Dr. Martinez following, ablation procedure was postponed. Continue to monitor rhythm Anemia, has been on iron supplement, s/p blood transfusion. Currently off all OAC. EGD/colonoscopy done revealed no active bleeding, continue to monitor H&H History of chronic anticoagulation, had GI bleed on Pradaxa, intolerant to Coumadin. Xarelto was discontinued secondary to worsening anemia History of multiple episodes of GI bleed. Had workup done by Dr. Alberts and she was restarted on Xarelto, stopped for now and monitor H&H, reportedly had AVM as a source of the intermittent GI bleed Questionable underlying sleep apnea, Dr. Cheng following. Status post iron transfusion with questionable allergic reaction, had similar reaction to different iron product with generalized weakness and generalized body ache, has been managed by Dr. Nicholas History of abnormal baseline EKG with first-degree AV block and right bundle branch block, right ventricular hypertrophy pattern. History of syncope while on atenolol was unable to tolerate the medication in the past. History of pancreatic nodule, had workup with Dr. Alberts Family history of CVA Clinical Quality Measures DVT/VTE Risk/Contraindication: Risk Factor Score Per Nursin RFS Level Per Nursing on Admit: 2=Moderate DAMON CLAUDIO MD October 11, 2018 08:05
[2018-10-11] MEDS: NITROFURANTOIN 100 MG (MACROBID) CAPSULE PO SCH ×2 (08:24→20:54)
[2018-10-11] MEDS: DOCUSATE SODIUM 100 MG (COLACE) CAP PO SCH ×2 (08:24→20:55)
[2018-10-11] MEDS: VITAMIN D3 1,000 UNITS (CHOLECALCIFEROL) TABLET PO SCH (08:24)
[2018-10-11] MEDS: AMIODARONE 200 MG (CORDARONE) TAB PO SCH ×2 (08:25→20:56)
[2018-10-11] MEDS: SERTRALINE 50 MG (ZOLOFT) TABLET PO SCH ×2 (08:25→20:59)
[2018-10-11] MEDS: POLYETHYLENE GLYCOL 17 GM (MIRALAX) PACK PO SCH ×2 (08:27→21:02)
[2018-10-11] MEDS: PROMETHAZINE 25 MG (PHENERGAN) SUPP PR PRN (08:33)
--- NOTE | 2018-10-11 08:46 | PM&R Progress Note ---
Subjective HPI/CC On Admission Date Seen by Provider: October 11, 2018 Time Seen by Provider: 08:30 Chief complaint: Myopathy with debility. HPI: This is a 68[address] 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 Pt has also had some urinary retention, Dr. Greco has been consulted and recommended self caths once a day with bladder scanning as needed and due to all of the 14 days of hospital stay she has become very debilitated and prior level of functioning was independent with use of a cane and now she can only take a few steps to go to the toilet. She did have a low grade fever today, sepsis workup with laboratory was ordered by Dr. Mcfarland to assess for any type of sepsis but we will continue the workup with Dr. Sahu's help along with Dr. Mcfarland, Dr. Cheng and Dr. Greco while she is on the inpatient rehab unit prior to discharge home to live independently. Subjective/Events-last exam Patient doing much better today from an emotional standpoint Urine was cloudy and had an odor so Dr. Greco has ordered Macrobid and the urine is already improved No nausea now Midline not working well for IV Zofran and Reglan BM's are now returning back to normal after stool softners Low blood pressure will be updated to Dr. Mcfarland Flomax and Urecholine is really improving her chronic bladder issues Conferred with RN Reviewed therapy notes Everything else remained stable Slow progress and she is chronically disabled Hgb 10.6 Phenergan suppository is really helping her too Review of Systems General: Fatigue Gastrointestinal: Nausea Objective Exam Vital Signs Vital Signs Date Time Temp Pulse Resp B/P (MAP) Pulse Ox O2 Delivery O2 Flow Rate FiO2 10/11/18 07:11 76 10/11/18 05:00 99.6 18 160/68 (98) 93 Room Air Capillary Refill : General Appearance: No Apparent Distress, WD/WN, Chronically ill HEENT: PERRL/EOMI, Normal ENT Inspection, Pharynx Normal, Moist Mucous Membranes Neck: Supple Respiratory: Chest Non Tender, Lungs Clear, Normal Breath Sounds, No Accessory Muscle Use, No Respiratory Distress Cardiovascular: Regular Rate, Rhythm, No Edema, No Gallop, No JVD, No Murmur, Normal Peripheral Pulses, Systolic Murmur Gastrointestinal: Normal Bowel Sounds, No Organomegaly, No Pulsatile Mass, Non Tender, Soft Back: Normal Inspection, No CVA Tenderness, No Vertebral Tenderness Extremity: Normal Capillary Refill, Normal Inspection, Normal Range of Motion, Non Tender, No Calf Tenderness, No Pedal Edema Neurologic/Psychiatric: Alert, Oriented x3, No Motor/Sensory Deficits ( generalized weakness all extremities), c++ quant developer II-XII Norm as Tested, Depressed Affect Skin: Warm/Dry Lymphatic: No Adenopathy Results/Procedures Lab Laboratory Tests 10/11/18 06:25 Patient resulted labs reviewed. FIM Transfers Therapy Code Descriptions/Definitions Functional [place] Measure: 0=Not Assessed/NA 4=Minimal Assistance 1=Total Assistance 5=Supervision or Setup 2=Maximal Assistance 6=Modified [place] 3=Moderate Assistance 7=Complete [place] Therapy Quality Codes: 6 Independent with activity with or without an assistive device 5 Patient requires set up or clean up by helper. Patient completes activity by themselves 4 Supervision or touching assist (CGA). [place] provide cues , steadying assist 3 The helper provides less than half the effort to complete the activity 2 The helper provides more than half the effort to complete the activity 1 Dependent. The helper does all the effort to complete an activity 7 Patient refused to complete or attempt activity 9 The patient did not perform the activity before the current illness or injury 88 Not attempted due to Medical conditions or safety concerns Mental Status/Objective Comprehension: 7 Expression: 7 Social Interaction: 7 Problem Solvin Memory: 7 ADL-Treatment Feedin (Set up) Eating (QC): 5 Groomin (Set up to blow dry and brush hair. Set up to fix hair otherwise.) Oral Hygiene (QC): 4 Bathin (SBA seated in shower.) Shower/Bathe Self (QC): 4 Upper Extremity Dressin Upper Body Dressing (QC): 4 Lower Extremity Dressin (Min assist in stance to pull up pants over hips. OT brought in AE for pt. to try, but is able to doff/don socks without it.) Lower Body Dressing (QC): 4 On/Off Footwear (QC): 4 Toiletin (CGA in stance. Pt. 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 Acute on chronic depression Plan: IRF protocols Home meds Pain meds Dr Greco appreciated Self caths and bladder scan prn daily per Dr Greco orders BM regimen to be maintained and bowels are starting to move today 10/11/[address] Mcfarland and Dr Greco and Dr Sahu and Dr Martinez Monitor labs Anticoagulation once no longer a risk for bleeding Rest breaks needed in-between therapies and she seems to be slowly improving Nausea and depression addressed by PCP and much improved today 10/11/18 (1) Myopathy (2) Atrial fibrillation with rapid ventricular response (3) Palpitations (4) Nausea (5) Headache (6) Atrial fibrillation (7) Iron deficiency (8) Fever (9) Urinary retention (10) Anemia (11) Depression (12) Dyspnea (13) Edema (14) Cardiac murmur (15) GERD (gastroesophageal reflux disease) (16) Cancer of spinal column (17) Debility (18) Late eff nerv injury trnk NEC (19) Leg weakness (20) Anticoagulant long-term use (21) Atrial fibrillation with rapid ventricular response (22) Transfusion of blood during current hospitalization (23) Self-catheterizes urinary bladder (24) Bacteremia due to Streptococcus (25) Fever (26) UTI (urinary tract infection) YURI MARSHALL DO October 11, 2018 08:46
--- NOTE | 2018-10-11 10:29 | Occupational Ther Daily Note ---
OT Current Status-Daily Note Subjective Pt sitting in chair, agrees to treatment. Pt states she is tired, but not having any pain. Mental Status/Objective Therapy Code Descriptions/Definitions Functional [place] Measure: 0=Not Assessed/NA 4=Minimal Assistance 1=Total Assistance 5=Supervision or Setup 2=Maximal Assistance 6=Modified [place] 3=Moderate Assistance 7=Complete [place] ADL-Treatment Pt declined shower, but agrees to sponge bath. Pt completed sponge bath seated in chair. Doff shirt with SBA. Upper body bathing completed with set up. Pt states she just donned clean Depends, so declined to change at this time. Pt able to wash legs with SBA. Don pullover shirt with set up. Pt able to thread bilateral LE into pants. Required min assist to complete pant hike in standing. Gait to restroom with FWW. Pt brushed teeth with SBA while standing at sink. Pt fatigues quickly with activity and requires rest breaks throughout ADL tasks. Transfer to toilet with minimal assistance using grab bars. Pt able to complete toileting hygiene, but requires assist to pull pants back up. Washed hands at sink. Therapy Code Descriptions/Definitions Functional [place] Measure: 0=Not Assessed/NA 4=Minimal Assistance 1=Total Assistance 5=Supervision or Setup 2=Maximal Assistance 6=Modified [place] 3=Moderate Assistance 7=Complete [place] Therapy Quality Codes: 6 Independent with activity with or without an assistive device 5 Patient requires set up or clean up by helper. Patient completes activity by themselves 4 Supervision or touching assist (CGA). [place] provide cues , steadying assist 3 The helper provides less than half the effort to complete the activity 2 The helper provides more than half the effort to complete the activity 1 Dependent. The helper does all the effort to complete an activity 7 Patient refused to complete or attempt activity 9 The patient did not perform the activity before the current illness or injury 88 Not attempted due to Medical conditions or safety concerns Grooming (FIM): 5 Oral Hygiene (QC): 4 Bathing (FIM): 5 Upper Body (FIM): 5 Upper Body Dressing (QC): 5 Lower Body Dressing (FIM): 4 Lower Body Dressing (QC): 3 Toileting (FIM): 3 Toileting Hygiene (QC): 3 Toilet/Commode Transfer (FIM): 4 Toilet Transfer (QC): 3 Other Treatment Pt performed w/c mobility to therapy gym with increased time and minimal assistance to turn corner. Pt completed resistance peg activity with bilateral hands to increase UE activity tolerance and coordination. Pt requires increased time to complete task. Putty activity with bilateral hands to increase strength and manipulation skills. Pt able to remove small beads from mild resistance putty. Fine motor task with nuts and bolts using bilateral UE to increase coordination and activity tolerance. Pt completes task very slowly and takes occasional breaks secondary to fatigue. Pt returned to room, sitting in chair with needs met after session. OT Short Term Goals Short Term Goals Time Frame: October 21, 2018 Eating(FIM): 5 Grooming(FIM): 5 Bathing(FIM): 5 Upper Body Dressing(FIM): 5 Lower Body Dressing(FIM): 5 Toileting(FIM): 5 Transfers (B,C,W/C) (FIM): 5 Toilet/Commode Transfer(FIM): 5 Shower Transfer(FIM): 4 Additional Short Term Goals: 1-Demonstrate ADL Tasks, 2-Verbalize Understanding , 3-ImproveStrength/Rafia 1=Demonstrate adherence to instructed precautions during ADL tasks. 2=Patient will verbalize/demonstrate understanding of assistive devices/ modifications for ADL. 3=Patient will improve strength/tolerance for activity to enable patient to perform ADL's. OT Senior Living Goals Senior Living Goals Time Frame: November 04, 2018 Eating (FIM): 6 Eating (QC): 6 Groomin Oral Hygiene (QC): 6 Bathing(FIM): 5 Shower/Bathe Self (QC): 5 Upper Body Dressing(FIM): 6 Upper Body Dressing (QC): 6 Lower Body Dressing(FIM): 6 Lower Body Dressing (QC): 6 On/Off Footwear (QC): 6 Toileting(FIM): 6 Toileting Hygiene (QC): 6 Transfers (B,C,W/C) (FIM): 6 Toilet/Commode Transfer(FIM): 6 Toilet/Commode Transfer (QC): 6 Shower Transfer(FIM): 5 Additional Goals: 1-Demonstrate ADL Tasks, 2-Verbalize Understanding, 3- ImproveStrength/Rafia 1=Demonstrate adherence to instructed precautions during ADL tasks. 2=Patient will verbalize/demonstrate understanding of assistive devices/ modifications for ADL. 3=Patient will improve strength/tolerance for activity to enable patient to perform ADL's. OT Education/Plan Discharge Recommendations Plan/Recommendations: Continue POC Treatment Plan/Plan of Care Patient would benefit from OT for education, treatment and training to promote independence in ADL's, mobility, safety and/or upper extremity function for ADL' s. Plan of Care: ADL Retraining, Functional Mobility, Group Exercise/Act as Ind, UE Funct Exercise/Act Treatment Duration: November 04, 2018 Frequency: At least 5 of 7 days/Wk (IRF) Estimated Hrs Per Day: 1.5 hours per day Agreement: Yes Rehab Potential: Fair Time/GCodes Start Time: 09:00 Stop Time: 10:30 Total Time Billed (hr/min): 90 Billed Treatment Time 1 visit, ADLx3(45minutes),EXx3(45minutes) JENIFFER GUERIN OT October 11, 2018 10:29
--- NOTE | 2018-10-11 12:00 | NUR ---
JONH, PICC LINE NURSE, HERE TO ASSESS LEFT ARM MIDLINE. NOT PATENT AND DC'D. LIDOCAINE REMOVED FROM EMAR - WAS GIVEN BY JONH RODRIGUEZ. RIGHT ARM MIDLINE PLACED AND FLUSHES WELL WITH SMALL AMOUNT OF BLOOD RETURN.
--- NOTE | 2018-10-11 12:02 | Physical Therapy Daily Note ---
PT Daily Note-Current Subjective Pt. states she hopes to reach her PLOF and maybe go back to her job Pain Location: No Pain Reported Mental Status Patient Orientation: Normal For Age Attachments: Other-See Comments (telemetry) Transfers Therapy Code Descriptions/Definitions Functional [place] Measure: 0=Not Assessed/NA 4=Minimal Assistance 1=Total Assistance 5=Supervision or Setup 2=Maximal Assistance 6=Modified [place] 3=Moderate Assistance 7=Complete [place] Therapy Quality Codes: 6 Independent with activity with or without an assistive device 5 Patient requires set up or clean up by helper. Patient completes activity by themselves 4 Supervision or touching assist (CGA). [place] provide cues , steadying assist 3 The helper provides less than half the effort to complete the activity 2 The helper provides more than half the effort to complete the activity 1 Dependent. The helper does all the effort to complete an activity 7 Patient refused to complete or attempt activity 9 The patient did not perform the activity before the current illness or injury 88 Not attempted due to Medical conditions or safety concerns Transfers (B, C, W/C) (FIM): 4 Scootin Rollin Supine to/from Sit: 5 Sit to/from Stand: 4 (low surface requires assist) needed education regarding safe chair approaches and stand to sit, needed higher seated surface for indep in sit to stand Weight Bearing Right Lower Extremity: Right Full Weight Bearing Left Lower Extremity: Left Full Weight Bearing Gait Training Does the Patient Walk?: Yes Gait (FIM): 1 Distance (FIM): 1=up to 49 ft (30ftx3) Gait Level of Assist: 4 Gait Persons Needed: 1 Gait Assistive Device: FWW low, flexed over FWW, unsure of steps etc Wheelchair Training Does the Pt Use a Wheelchair?: Yes Wheelchair (FIM): 2 Wheelchair Distance: 7=290-74 ft (100x2) Wheelchair Level of Assist: 4 Type of Wheelchair: Manual needs education regarding turns and safety, needs assist for breaking Exercises Seated Therapy Exercises: Ankle pumps, Sit to stand, Long arc quads, Hip flexion, Hip abd/add Seated Reps: 15 NuStep Minutes: 10 NuStep Workload: 2 Assessment Current Status: Good Progress PT Short Term Goals Short Term Goals Time Frame: October 14, 2018 Transfers (B,C,W/C) (FIM): 5 Gait (FIM): 2 Distance (FIM): 2=429-87 ft Gait Assistive Device: FWW Wheelchair Distance: 100' PT Family Engagement Specialist Goals Jail Goals PT Jail Goals Time Frame: October 25, 2018 Transfers (B,C,W/C) (FIM): 7 Sit to Lying (QC): 6 Lying-Sitting on Side/Bed(QC): 6 Sit to Stand (QC): 6 Roll Left to Right (QC): 6 Chair/Drx-yc-Ismqa Xfer(QC): 6 Car Transfer (QC): 6 Does the Patient Walk: Yes Gait (FIM): 6 Gait distance (FIM): 3=150 ft Walk 10 feet (QC): 6 Walk 10ft-Uneven Surface(QC): 5 Walk 50ft with 2 Turns (QC): 6 Walk 150 ft (QC): 6 Gait Assistive Device: FWW Does the Pt use WC or Scooter?: No Stairs (FIM): 2 # of Steps: 1 1 Step (curb) (QC): 6 4 Steps (QC): 88 12 Steps (QC): 88 Picking up an Object (QC): 88 PT Plan Treatment/Plan Treatment Plan: Continue Plan of Care Treatment Plan: Bed Mobility, Education, Functional Activity Rafia, Functional Strength, Group Therapy, Gait, Safety, Therapeutic Exercise, Transfers Treatment Duration: October 25, 2018 Frequency: At least 5 of 7 days/Wk (IRF) Estimated Hrs Per Day: 1.5 hours per day Patient and/or Family Agrees t: Yes Safety Risks/Education Patient Education: Transfer Techniques, Correct Positioning, W/C Management, Disease Process, Safety Issues Teaching Recipient: Patient Teaching Methods: Demonstration, Discussion Response to Teaching: Verbalize Understanding, Return Demonstration, Reinforcement Needed Time/GCodes Time In: 1100 Time Out: 1200 Total Billed Treatment Time: 60 Total Billed Treatment 1,GT20m,EX25m,FA15m G Codes Necessary: No EYAL MANDEL PATROL POLICE SERGEANT October 11, 2018 12:02
--- NOTE | 2018-10-11 12:20 | Cardiology Progress Note ---
Cardiology SOAP Progress Note Subjective: No cardiac complaints. Objective: I&O/Vital Signs 10/11/18 10/11/18 10/11/18 10/11/18 09:00 13:49 15:35 17:02 Temp 97.6 Pulse 82 84 Resp 14 B/P (MAP) 135/75 (95) Pulse Ox 98 O2 Delivery Room Air Room Air Room Air 10/11/18 19:00 Pulse 82 10/11/18 00:00 Intake Total 400 ml Output Total 250 ml Balance 150 ml Weight (Pounds): 174 Weight (Ounces): 0.0 Weight (Calculated Kilograms): 78.570071 Constitutional: No appears stated age, No AAO x 3, No apparent distress, No PERRL, No well-developed, No well-nourished, No other Respiratory: No accessory muscle use, No respiratory distress, No chest tender , No chest expansion is symmetric; chest is bilaterally symmetric; No lungs clear to percussion; lungs clear to auscultation; No crackles, No rhonchi, No rales, No stridor, No wheezing, No pleural rub, No other Cardiovascular: regular rate-rhythm; No irregularly irregular, No extra beats, No parasternal heave is noted, No JVD, No edema, No bradycardia, No tachycardia , No point of maximal impulse, No cardiac thrills are palpable; S1 and S2; No gallop/S3, No gallop/S4, No diastolic murmur, No systolic murmur, No friction rub, No click, No other Gastrointestional: No tender, No soft, No round, No distended, No pulsatile mass, No organomegaly, No guarding, No rebound, No tenderness, No hernia, No mass, No audible bowel sounds, No abnormal bowel sounds, No abdominal bruits, No spleenomegaly, No other Extremities: No normal range of motion, No non-tender, No normal inspection, No pedal edema, No calf tenderness, No normal capillary refill, No pelvis stable , No calf tenderness, No inflammation, No pedal edema, No slow capillary refill , No swelling, No other, No abrasion, No clubbing, No cyanosis, No ecchymosis, No laceration, No no lower extremity edema bilateral, No significant edema, No tenderness, No wound Neurologic/Psychiatric: no motor/sensory deficits, alert, normal mood/affect, oriented x 3 Skin: pallor Results/Procedures: Labs Laboratory Tests 10/11/18 06:25: White Blood Count 6.8, Red Blood Count 4.02L, Hemoglobin 10.6#L, Hematocrit 35, Mean Corpuscular Volume 87, Mean Corpuscular Hemoglobin 26, Mean Corpuscular Hemoglobin Concent 30L, Red Cell Distribution Width 21.3H, Platelet Count 318, Mean Platelet Volume 9.5, Neutrophils (%) (Auto) 74, Lymphocytes (%) (Auto) 13, Monocytes (%) (Auto) 11, Eosinophils (%) (Auto) 1, Basophils (%) (Auto) 0, Neutrophils # (Auto) 5.0, Lymphocytes # (Auto) 0.9L, Monocytes # (Auto) 0.8, Eosinophils # (Auto) 0.1, Basophils # (Auto) 0.0, Sodium Level 137, Potassium Level 3.8, Chloride Level 101, Carbon Dioxide Level 23, Anion Gap 13, Blood Urea Nitrogen 12, Creatinine 0.89, Estimat Glomerular Filtration Rate > 60, BUN/ Creatinine Ratio 13, Glucose Level 95, Calcium Level 9.1, Corrected Calcium 9.7 , Total Bilirubin 0.6, Aspartate Amino Transf (AST/SGOT) 18, Alanine Aminotransferase (ALT/SGPT) 19, Alkaline Phosphatase 90, Total Protein 7.4, Albumin 3.3 Microbiology 10/10/18 Urine Culture - Preliminary, Resulted Escherichia coli A/P: Assessment/Dx: Typical atrial flutter, Paroxysmal atrial fibrillation, Recent GI bleeding Plan: Typical atrial flutter, I spoke at length to the patient and Dr. Sahu. We had previously arranged right-sided typical atrial flutter ablation for Sunday, however patient requested to postpone it since she is not feeling well. I will postpone the procedure to a later date. Paroxysmal atrial fibrillation, currently in sinus rhythm. Continue amiodarone. No oral anticoagulation due to recent GI bleeding. Recent GI bleeding, not on any anticoagulation at this point in time. Dr. Mcfarland following as well. Thank you for your consultation. Please call me if you have any questions. Jay Martinez MD, FACP, FACC, FSCAI, FHRS, CCDS Interventional Cardiology Cardiac Electrophysiology Vascular Medicine and Endovascular Interventions Tracy MARTINEZ MD October 11, 2018 12:20
[2018-10-11] MEDS ORDERED: LIDOCAINE 1% INJ 20 ML 20 ML VIAL ONE (12:22)
--- NOTE | 2018-10-11 12:30 | NUR ---
BLADDER SCANS HAVE BEEN UNDER 300 CC AND NOT HAVING TO STRAIGHT CATH PATIENT. PATIENT STATES SINCE ON URECHOLINE AND FLOMAX, HAS BEEN VOIDING BETTER. SHE REQUESTS NOT HAVING TO BE TAUGHT TO STRAIGHT CATH AT THIS TIME. DR. LYNN CONSULTED AND HE AGREES TO DC TEACHING AT THIS TIME.
[2018-10-11] MEDS: METOCLOPRAMIDE INJ 10 MG/2 ML (REGLAN) IVP SCH ×3 (12:57→23:31)
[2018-10-11] MEDS: CATHETER FLUSH 10 ML SYR IV SCH ×2 (12:57→23:31)
--- NOTE | 2018-10-11 13:00 | NUR ---
DR. PERDOMO HERE TO SEE PATIENT.
--- NOTE | 2018-10-11 13:20 | Progress Note (SOAP) ---
Subjective Date Seen by a Provider: October 11, 2018 Time Seen by a Provider: 13:17 Subjective/Events-last exam Fwup beta strep bacteremia, paroxysmal atrial fibrillation, chronic anemia, IV iron transfusion reaction, weakness, colonic polyps, history of AVMs on capsule endoscopy, urinary retention, nausea, constipation. Had 2 BMS this morning. Feeling like getting a little bit stronger. Objective Exam Vital Signs Date Time Temp Pulse Resp B/P (MAP) Pulse Ox O2 Delivery O2 Flow Rate FiO2 10/11/18 07:11 76 10/11/18 05:00 99.6 72 18 160/68 (98) 93 Room Air 10/11/18 01:00 73 10/10/18 20:00 Room Air 10/10/18 19:00 81 10/10/18 15:47 96.9 84 14 165/70 (101) 95 Room Air I & O 10/11/18 07:00 Intake Total 840 ml Output Total 450 ml Balance 390 ml Capillary Refill : General Appearance: No Apparent Distress Neck: Supple Respiratory: Lungs Clear Cardiovascular: Regular Rate, Rhythm, Systolic Murmur Gastrointestinal: normal bowel sounds, non tender, soft Extremity: Non Tender, No Calf Tenderness, No Pedal Edema Neurologic/Psychiatric: Alert, Oriented x3 Skin: Warm/Dry Results Lab Laboratory Tests 10/11/18 06:25: White Blood Count 6.8, Red Blood Count 4.02L, Hemoglobin 10.6#L, Hematocrit 35, Mean Corpuscular Volume 87, Mean Corpuscular Hemoglobin 26, Mean Corpuscular Hemoglobin Concent 30L, Red Cell Distribution Width 21.3H, Platelet Count 318, Mean Platelet Volume 9.5, Neutrophils (%) (Auto) 74, Lymphocytes (%) (Auto) 13, Monocytes (%) (Auto) 11, Eosinophils (%) (Auto) 1, Basophils (%) (Auto) 0, Neutrophils # (Auto) 5.0, Lymphocytes # (Auto) 0.9L, Monocytes # (Auto) 0.8, Eosinophils # (Auto) 0.1, Basophils # (Auto) 0.0, Sodium Level 137, Potassium Level 3.8, Chloride Level 101, Carbon Dioxide Level 23, Anion Gap 13, Blood Urea Nitrogen 12, Creatinine 0.89, Estimat Glomerular Filtration Rate > 60, BUN/ Creatinine Ratio 13, Glucose Level 95, Calcium Level 9.1, Corrected Calcium 9.7 , Total Bilirubin 0.6, Aspartate Amino Transf (AST/SGOT) 18, Alanine Aminotransferase (ALT/SGPT) 19, Alkaline Phosphatase 90, Total Protein 7.4, Albumin 3.3 Microbiology 10/10/18 Urine Culture - Preliminary, Resulted Gram Negative Bacillus 1 Assessment/Plan Assessment/Plan Assess & Plan/Chief Complaint 1. Recent Strep Bacteremia--resolved, now with UTI with final on urine culture pending 2. Paroxyxmal Atrial Fibrillation--back in NSR, on amiodarone, anticoagulants on hold due to anemia, EP discussing right heart ablation due to A flutter progressing to A fib but patient has decided to hold on this for now 3. Iron Deficiency Anemia--H/H improved post transfusion and with hold of anticoagulants--Hgb up to 10.6 today 4. Hypertension--stable 5. Urinary Retention--on urecholine and flomax and improving 6. Weakness--PT/OT 7. Nausea--using zofran prn 8. Constipation--using miralax routinely Clinical Quality Measures DVT/VTE Risk/Contraindication: Risk Factor Score Per Nursin RFS Level Per Nursing on Admit: 2=Moderate ANTHONY PERDOMO DO October 11, 2018 13:20
--- NOTE | 2018-10-11 14:07 | Physical Therapy Daily Note ---
PT Daily Note-Current Subjective Agrees to Rx. Thanks this PRESSER HAND for helping her with gait and feels she is making progress Pain Location: No Pain Reported Mental Status Patient Orientation: Normal For Age Attachments: Other-See Comments (telemetry) Transfers Therapy Code Descriptions/Definitions Functional [place] Measure: 0=Not Assessed/NA 4=Minimal Assistance 1=Total Assistance 5=Supervision or Setup 2=Maximal Assistance 6=Modified [place] 3=Moderate Assistance 7=Complete [place] Therapy Quality Codes: 6 Independent with activity with or without an assistive device 5 Patient requires set up or clean up by helper. Patient completes activity by themselves 4 Supervision or touching assist (CGA). [place] provide cues , steadying assist 3 The helper provides less than half the effort to complete the activity 2 The helper provides more than half the effort to complete the activity 1 Dependent. The helper does all the effort to complete an activity 7 Patient refused to complete or attempt activity 9 The patient did not perform the activity before the current illness or injury 88 Not attempted due to Medical conditions or safety concerns sit to stands improved with seat height in w/c. sup to sit and sit to sup all SBA Weight Bearing Right Lower Extremity: Right Full Weight Bearing Left Lower Extremity: Left Full Weight Bearing Gait Training Does the Patient Walk?: Yes Gait (FIM): 2 Distance (FIM): 9=491-16 ft (65ft, 55ft) Gait Level of Assist: 4 Gait Persons Needed: 1 Gait Assistive Device: FWW gait with narrow CARLOS and tends to stay in left of FWW , turns pepe prone to cross over, instruction needed for pattern of gait Exercises Seated Therapy Exercises: Ankle pumps, Sit to stand, Long arc quads, Hip flexion Seated Reps: 12 Assessment Current Status: Good Progress gave good effort PT Short Term Goals Short Term Goals Time Frame: October 14, 2018 Transfers (B,C,W/C) (FIM): 5 Gait (FIM): 2 Distance (FIM): 9=415-22 ft Gait Assistive Device: FWW Wheelchair Distance: 100' PT Catastrophe Claims Supervisor Goals Mcc Goals PT Catastrophe Claims Supervisor Goals Time Frame: October 25, 2018 Transfers (B,C,W/C) (FIM): 7 Sit to Lying (QC): 6 Lying-Sitting on Side/Bed(QC): 6 Sit to Stand (QC): 6 Rollin Roll Left to Right (QC): 6 Chair/Vog-yk-Qswad Xfer(QC): 6 Car Transfer (QC): 6 Does the Patient Walk: Yes Gait (FIM): 6 Gait distance (FIM): 3=150 ft Walk 10 feet (QC): 6 Walk 10ft-Uneven Surface(QC): 5 Walk 50ft with 2 Turns (QC): 6 Walk 150 ft (QC): 6 Gait Assistive Device: FWW Does the Pt use WC or Scooter?: No Stairs (FIM): 2 # of Steps: 1 1 Step (curb) (QC): 6 4 Steps (QC): 88 12 Steps (QC): 88 Picking up an Object (QC): 88 PT Plan Treatment/Plan Treatment Plan: Continue Plan of Care Treatment Plan: Bed Mobility, Education, Functional Activity Rafia, Functional Strength, Group Therapy, Gait, Safety, Therapeutic Exercise, Transfers Treatment Duration: October 25, 2018 Frequency: At least 5 of 7 days/Wk (IRF) Estimated Hrs Per Day: 1.5 hours per day Patient and/or Family Agrees t: Yes Safety Risks/Education Patient Education: Gait Training, Transfer Techniques, Correct Positioning, Disease Process, Safety Issues Teaching Recipient: Patient Teaching Methods: Demonstration, Discussion Response to Teaching: Verbalize Understanding, Return Demonstration, Reinforcement Needed Time/GCodes Time In: 1330 Time Out: 1400 Total Billed Treatment Time: 30 Total Billed Treatment 1,GT20m,FA10 G Codes Necessary: EYAL Ross PRESSER HAND October 11, 2018 14:07
[2018-10-11 15:35] VITALS: BP 135/75
[2018-10-11] MEDS: TAMSULOSIN 0.4 MG (FLOMAX) CAP PO SCH (17:44)
[2018-10-11] MEDS: CATHETER FLUSH 10 ML SYR IV PRN (17:48)
--- NOTE | 2018-10-11 18:00 | NUR ---
OVERALL, CONDITION IMPROVED. VOIDING BETTER, EXPELLING BM, NAUSEA AND PAIN BOTH IMPROVED, AND ACTIVITY LEVEL IMPROVED. PAIN CONTROLLED ON ULTRAM AND NOT REQUESTING ANY FURTHER PAIN MEDICATION.
[2018-10-11] MEDS: LOSARTAN 100 MG (COZAAR) TABLET PO SCH (20:55)
[2018-10-11] MEDS: DILTIAZEM 240 MG (CARDIZEM CD) CAP PO SCH (20:56)
[2018-10-12] MEDS: BETHANECHOL 25 MG (URECHOLINE) TAB PO SCH ×4 (06:07→21:26)
[2018-10-12] MEDS: METOCLOPRAMIDE INJ 10 MG/2 ML (REGLAN) IVP SCH ×4 (06:07→23:35)
[2018-10-12] MEDS: CATHETER FLUSH 10 ML SYR IV SCH ×3 (06:08→23:35)
[2018-10-12 06:12] VITALS: BP 135/72
[2018-10-12] MEDS: PANTOPRAZOLE 40 MG (PROTONIX) TAB PO SCH ×2 (07:20→21:27)
[2018-10-12 09:17] VITALS: BP 118/65
[2018-10-12] MEDS: AMIODARONE 200 MG (CORDARONE) TAB PO SCH ×2 (09:17→21:26)
[2018-10-12] MEDS: VITAMIN D3 1,000 UNITS (CHOLECALCIFEROL) TABLET PO SCH (09:17)
[2018-10-12] MEDS: NITROFURANTOIN 100 MG (MACROBID) CAPSULE PO SCH ×2 (09:17→21:26)
[2018-10-12] MEDS: POLYETHYLENE GLYCOL 17 GM (MIRALAX) PACK PO SCH ×2 (09:18→21:27)
[2018-10-12] MEDS: DOCUSATE SODIUM 100 MG (COLACE) CAP PO SCH ×2 (09:18→21:26)
[2018-10-12] MEDS: SERTRALINE 50 MG (ZOLOFT) TABLET PO SCH ×2 (09:18→21:26)
[2018-10-12] MEDS: ONDANSETRON 4 MG/2 ML (SDV) Z0FRAN IVP PRN (09:19)
--- NOTE | 2018-10-12 11:27 | Physical Therapy Daily Note ---
PT Daily Note-Current Subjective Pt reports she is looking forward to walking although feet are sore. Agreeable to PT session Pain Numeric Pain Scale: 5-Moderate Pain Location Body Site: Foot (bilat feet) Comment: states she does not want pain med for it at this time Appearance Upon arrival, pt in bed with HOB elevated, awake and alert At end of session, pt sitting up in recliner, chair alarm activated, call light , phone and bedside table within reach. All needs met Mental Status Patient Orientation: Person, Place, Time, Eyes Open Transfers Therapy Code Descriptions/Definitions Functional [place] Measure: 0=Not Assessed/NA 4=Minimal Assistance 1=Total Assistance 5=Supervision or Setup 2=Maximal Assistance 6=Modified [place] 3=Moderate Assistance 7=Complete [place] Therapy Quality Codes: 6 Independent with activity with or without an assistive device 5 Patient requires set up or clean up by helper. Patient completes activity by themselves 4 Supervision or touching assist (CGA). [place] provide cues , steadying assist 3 The helper provides less than half the effort to complete the activity 2 The helper provides more than half the effort to complete the activity 1 Dependent. The helper does all the effort to complete an activity 7 Patient refused to complete or attempt activity 9 The patient did not perform the activity before the current illness or injury 88 Not attempted due to Medical conditions or safety concerns Transfers (B, C, W/C) (FIM): 4 Scootin Rollin Supine to/from Sit: 4 (supine to sit, HOB elevated, use of bedrail) Sit to/from Stand: 4 (CGA, slight unsteadiness initially after stand) Weight Bearing Right Lower Extremity: Right Full Weight Bearing Left Lower Extremity: Left Full Weight Bearing Gait Training Does the Patient Walk?: Yes Gait (FIM): 4 Distance (FIM): 3=150 ft Distance: 160 Gait Level of Assist: 4 Gait Persons Needed: 1 Gait Assistive Device: FWW occasional step to gait pattern, corrected with instruction, slow shuffling decreased step height, unsteady episodes x4 self corrected, instruction for correct placement of walker and distance from walker, kyphotic, heavily relies on walker Treatments bed mobility, transfer, safety, gait, functional mobility, activity tolerance Assessment Current Status: Good Progress PT Short Term Goals Short Term Goals Time Frame: October 14, 2018 Transfers (B,C,W/C) (FIM): 5 Gait (FIM): 2 Distance (FIM): 3=072-35 ft Gait Assistive Device: FWW Wheelchair Distance: 100' PT Retirement Goals Retirement Goals PT Online Media Director Goals Time Frame: October 25, 2018 Transfers (B,C,W/C) (FIM): 7 Sit to Lying (QC): 6 Lying-Sitting on Side/Bed(QC): 6 Sit to Stand (QC): 6 Rollin Roll Left to Right (QC): 6 Chair/[id number]-Crvgn Xfer(QC): 6 Car Transfer (QC): 6 Does the Patient Walk: Yes Gait (FIM): 6 Gait distance (FIM): 3=150 ft Walk 10 feet (QC): 6 Walk 10ft-Uneven Surface(QC): 5 Walk 50ft with 2 Turns (QC): 6 Walk 150 ft (QC): 6 Gait Assistive Device: FWW Does the Pt use WC or Scooter?: No Stairs (FIM): 2 # of Steps: 1 1 Step (curb) (QC): 6 4 Steps (QC): 88 12 Steps (QC): 88 Picking up an Object (QC): 88 PT Plan Treatment/Plan Treatment Plan: Continue Plan of Care Treatment Plan: Bed Mobility, Education, Functional Activity [place], Functional Strength, Group Therapy, Gait, Safety, Therapeutic Exercise, Transfers Treatment Duration: October 25, 2018 Frequency: At least 5 of 7 days/Wk (IRF) Estimated Hrs Per Day: 1.5 hours per day Patient and/or Family Agrees t: Yes Safety Risks/Education Patient Education: Gait Training, Transfer Techniques, Safety Issues Teaching Recipient: Patient Teaching Methods: Demonstration, Discussion Response to Teaching: Verbalize Understanding, Return Demonstration, Reinforcement Needed Time/GCodes Time In: 844 Time Out: 904 Total Billed Treatment Time: 20 Total Billed Treatment 1 visit, GT x 1 unit LISA STORM PTA October 12, 2018 11:26
--- NOTE | 2018-10-12 12:36 | PM&R Progress Note ---
Subjective HPI/CC On Admission Date Seen by Provider: October 12, 2018 Time Seen by Provider: 11:00 Chief complaint: Myopathy with debility. HPI: This is a 68[address] 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 Pt has also had some urinary retention, Dr. Greco has been consulted and recommended self caths once a day with bladder scanning as needed and due to all of the 14 days of hospital stay she has become very debilitated and prior level of functioning was independent with use of a cane and now she can only take a few steps to go to the toilet. She did have a low grade fever today, sepsis workup with laboratory was ordered by Dr. Mcfarland to assess for any type of sepsis but we will continue the workup with Dr. Sahu's help along with Dr. Mcfarland, Dr. Cheng and Dr. Greco while she is on the inpatient rehab unit prior to discharge home to live independently. Subjective/Events-last exam Patient doing much better again today from an emotional standpoint Macrobid maintained and UCx ESBL sensitivie to Macrobid so will continue that regimen Nausea relieved with Zofran and Reglan but still with dry heaves at times BM now back to regular Dr Mcfarland managed mild hypotension Flomax and Urecholine will be continued since that is really helping her chronic urinary issues Conferred with RN Reviewed therapy notes Slow progress and she is chronically disabled but overall doing much better the past 2 days Phenergan suppository is really helping her too to will continue that also Review of Systems General: Fatigue Neurological: Weakness, Numbness, Incoordination Objective Exam Vital Signs Vital Signs Date Time Temp Pulse Resp B/P (MAP) Pulse Ox O2 Delivery O2 Flow Rate FiO2 10/13/18 09:57 Room Air 10/13/18 07:00 70 10/13/18 05:04 99.1 20 155/72 (99) 97 Capillary Refill : General Appearance: No Apparent Distress HEENT: PERRL/EOMI, Normal ENT Inspection, Pharynx Normal, Moist Mucous Membranes Neck: Supple Respiratory: Lungs Clear Cardiovascular: Regular Rate, Rhythm, Systolic Murmur Gastrointestinal: Normal Bowel Sounds, No Organomegaly, No Pulsatile Mass, Non Tender, Soft Back: Normal Inspection, No CVA Tenderness, No Vertebral Tenderness Extremity: Non Tender, No Calf Tenderness, No Pedal Edema Neurologic/Psychiatric: Alert, Oriented x3 Skin: Warm/Dry Lymphatic: No Adenopathy Results/Procedures Lab Patient resulted labs reviewed. FIM Transfers Therapy Code Descriptions/Definitions Functional [place] Measure: 0=Not Assessed/NA 4=Minimal Assistance 1=Total Assistance 5=Supervision or Setup 2=Maximal Assistance 6=Modified [place] 3=Moderate Assistance 7=Complete [place] Therapy Quality Codes: 6 Independent with activity with or without an assistive device 5 Patient requires set up or clean up by helper. Patient completes activity by themselves 4 Supervision or touching assist (CGA). [place] provide cues , steadying assist 3 The helper provides less than half the effort to complete the activity 2 The helper provides more than half the effort to complete the activity 1 Dependent. The helper does all the effort to complete an activity 7 Patient refused to complete or attempt activity 9 The patient did not perform the activity before the current illness or injury 88 Not attempted due to Medical conditions or safety concerns Mental Status/Objective Comprehension: 7 Expression: 7 Social Interaction: 7 Problem Solvin Memory: 7 ADL-Treatment Feedin (Set up) Eating (QC): 5 Groomin Oral Hygiene (QC): 4 Bathin Shower/Bathe Self (QC): 4 Upper Extremity Dressin Upper Body Dressing (QC): 5 Lower Extremity Dressin Lower Body Dressing (QC): 3 On/Off Footwear (QC): 4 Toiletin Toileting Hygiene (QC): 3 Toilet/Commode Transfer: 4 Toilet Transfer (QC): 3 Shower: 4 Assessment/Plan Assessment and Plan Assess & Plan/Chief Complaint Assessment: 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 Acute on chronic depression ESBL UTI Plan: IRF protocols Home meds Nausea meds Pain meds Dr Greco appreciated Self caths and bladder scan prn daily per Dr Greco orders BM regimen to be maintained since bowels are now moving well Appreciate Dr Mcfarland and Dr Greco and Dr Sahu and Dr Martinez Monitor labs Anticoagulation once no longer a risk for bleeding Nausea and depression addressed by PCP and much improved ESBL UTI with Macrobid (1) Myopathy (2) Atrial fibrillation with rapid ventricular response (3) Palpitations (4) Nausea (5) Headache (6) Atrial fibrillation (7) Iron deficiency (8) Fever (9) Urinary retention (10) Anemia (11) Depression (12) Dyspnea (13) Edema (14) Cardiac murmur (15) GERD (gastroesophageal reflux disease) (16) Cancer of spinal column (17) Debility (18) Late eff nerv injury trnk NEC (19) Leg weakness (20) Anticoagulant long-term use (21) Atrial fibrillation with rapid ventricular response (22) Transfusion of blood during current hospitalization (23) Self-catheterizes urinary bladder (24) Bacteremia due to Streptococcus (25) Fever (26) UTI (urinary tract infection) (27) UTI due to extended-spectrum beta lactamase (ESBL) producing Escherichia coli YURI MARSHALL DO October 12, 2018 12:35
--- NOTE | 2018-10-12 13:58 | NUR ---
Call from [facility] to notify of ESBL in urine. Patient placed in contact isolation and Dr. Parker notified.
[2018-10-12] MEDS: TAMSULOSIN 0.4 MG (FLOMAX) CAP PO SCH (18:21)
[2018-10-12 18:23] VITALS: BP 150/70
[2018-10-12] MEDS: LOSARTAN 100 MG (COZAAR) TABLET PO SCH (21:26)
[2018-10-12] MEDS: DILTIAZEM 240 MG (CARDIZEM CD) CAP PO SCH (21:26)
[2018-10-13] MEDS: ACETAMINOPHEN 500 MG TAB (TYLENOL) PO PRN (03:34)
[2018-10-13 05:04] VITALS: BP 155/72
[2018-10-13] MEDS: METOCLOPRAMIDE INJ 10 MG/2 ML (REGLAN) IVP SCH ×3 (06:35→17:52)
[2018-10-13] MEDS: CATHETER FLUSH 10 ML SYR IV SCH ×3 (06:35→21:22)
[2018-10-13] MEDS: BETHANECHOL 25 MG (URECHOLINE) TAB PO SCH ×4 (06:35→21:22)
[2018-10-13] MEDS: PANTOPRAZOLE 40 MG (PROTONIX) TAB PO SCH ×2 (06:35→22:18)
[2018-10-13] MEDS: AMIODARONE 200 MG (CORDARONE) TAB PO SCH ×2 (08:52→21:22)
[2018-10-13] MEDS: POLYETHYLENE GLYCOL 17 GM (MIRALAX) PACK PO SCH ×2 (08:52→22:17)
[2018-10-13] MEDS: NITROFURANTOIN 100 MG (MACROBID) CAPSULE PO SCH ×2 (08:52→21:21)
[2018-10-13] MEDS: SERTRALINE 50 MG (ZOLOFT) TABLET PO SCH ×2 (08:52→21:22)
[2018-10-13] MEDS: VITAMIN D3 1,000 UNITS (CHOLECALCIFEROL) TABLET PO SCH (09:07)
[2018-10-13] MEDS: DOCUSATE SODIUM 100 MG (COLACE) CAP PO SCH ×2 (09:07→21:21)
--- NOTE | 2018-10-13 12:49 | PM&R Progress Note ---
Subjective HPI/CC On Admission Date Seen by Provider: October 13, 2018 Time Seen by Provider: 12:30 Chief complaint: Myopathy with debility. HPI: This is a 68[address]WF of [address] 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 Pt has also had some urinary retention, Dr. Greco has been consulted and recommended self caths once a day with bladder scanning as needed and due to all of the 14 days of hospital stay she has become very debilitated and prior level of functioning was independent with use of a cane and now she can only take a few steps to go to the toilet. She did have a low grade fever today, sepsis workup with laboratory was ordered by Dr. Mcfarland to assess for any type of sepsis but we will continue the workup with Dr. Sahu's help along with Dr. Mcfarland, Dr. Cheng and Dr. Greco while she is on the inpatient rehab unit prior to discharge home to live independently. Subjective/Events-last exam Emotional status is much improved Macrobid maintained and UCx ESBL sensitivie to Macrobid so will continue that regimen Nausea improved today BM today Gasping at night and wonders how her "sleep study" turned out when she had it done for Dr Cheng so we will reach out to him on Sunday to obtain results Flomax and Urecholine will be continued Conferred with RN Reviewed therapy notes Feels like she is improved Will check labs in am Appreciate Dr Mcfarland Review of Systems General: Fatigue Neurological: Weakness, Numbness, Incoordination Objective Exam Vital Signs Vital Signs Date Time Temp Pulse Resp B/P (MAP) Pulse Ox O2 Delivery O2 Flow Rate FiO2 10/13/18 13:00 80 10/13/18 09:57 Room Air 10/13/18 05:04 99.1 20 155/72 (99) 97 Capillary Refill : General Appearance: No Apparent Distress HEENT: PERRL/EOMI, Normal ENT Inspection, Pharynx Normal, Moist Mucous Membranes Neck: Supple Respiratory: Lungs Clear Cardiovascular: Regular Rate, Rhythm, Systolic Murmur Gastrointestinal: Normal Bowel Sounds, No Organomegaly, No Pulsatile Mass, Non Tender, Soft Back: Normal Inspection, No CVA Tenderness, No Vertebral Tenderness Extremity: Non Tender, No Calf Tenderness, No Pedal Edema Neurologic/Psychiatric: Alert, Oriented x3 Skin: Warm/Dry Lymphatic: No Adenopathy Results/Procedures Lab Patient resulted labs reviewed. FIM Transfers Therapy Code Descriptions/Definitions Functional [place] Measure: 0=Not Assessed/NA 4=Minimal Assistance 1=Total Assistance 5=Supervision or Setup 2=Maximal Assistance 6=Modified [place] 3=Moderate Assistance 7=Complete [place] Therapy Quality Codes: 6 Independent with activity with or without an assistive device 5 Patient requires set up or clean up by helper. Patient completes activity by themselves 4 Supervision or touching assist (CGA). [place] provide cues , steadying assist 3 The helper provides less than half the effort to complete the activity 2 The helper provides more than half the effort to complete the activity 1 Dependent. The helper does all the effort to complete an activity 7 Patient refused to complete or attempt activity 9 The patient did not perform the activity before the current illness or injury 88 Not attempted due to Medical conditions or safety concerns Mental Status/Objective Comprehension: 7 Expression: 7 Social Interaction: 7 Problem Solvin Memory: 7 ADL-Treatment Feedin (Set up) Eating (QC): 5 Groomin Oral Hygiene (QC): 4 Bathin Shower/Bathe Self (QC): 4 Upper Extremity Dressin Upper Body Dressing (QC): 5 Lower Extremity Dressin Lower Body Dressing (QC): 3 On/Off Footwear (QC): 4 Toiletin Toileting Hygiene (QC): 3 Toilet/Commode Transfer: 4 Toilet Transfer (QC): 3 Shower: 4 Assessment/Plan Assessment and Plan Assess & Plan/Chief Complaint Assessment: 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 Acute on chronic depression ESBL UTI Plan: IRF protocols Home meds Nausea meds Pain meds Dr Greco appreciated Self caths and bladder scan prn daily per Dr Greco orders BM regimen to be maintained since bowels are now moving well Appreciate Dr Mcfarland and Dr Greco and Dr Sahu and Dr Khalid Monitor labs Anticoagulation once no longer a risk for bleeding Nausea and depression addressed by PCP and much improved ESBL UTI with Macrobid Obtain results of sleep study per Dr Cheng when he returns on Sunday (1) Myopathy (2) Atrial fibrillation with rapid ventricular response (3) Palpitations (4) Nausea (5) Headache (6) Atrial fibrillation (7) Iron deficiency (8) Fever (9) Urinary retention (10) Anemia (11) Depression (12) Dyspnea (13) Edema (14) Cardiac murmur (15) GERD (gastroesophageal reflux disease) (16) Cancer of spinal column (17) Debility (18) Late eff nerv injury trnk NEC (19) Leg weakness (20) Anticoagulant long-term use (21) Atrial fibrillation with rapid ventricular response (22) Transfusion of blood during current hospitalization (23) Self-catheterizes urinary bladder (24) Bacteremia due to Streptococcus (25) Fever (26) UTI (urinary tract infection) (27) UTI due to extended-spectrum beta lactamase (ESBL) producing Escherichia coli YURI MARSHALL DO October 13, 2018 12:49
[2018-10-13] MEDS: ONDANSETRON 4 MG/2 ML (SDV) Z0FRAN IVP PRN (13:22)
[2018-10-13] MEDS: TAMSULOSIN 0.4 MG (FLOMAX) CAP PO SCH (17:51)
[2018-10-13] MEDS: DILTIAZEM 240 MG (CARDIZEM CD) CAP PO SCH (18:35)
[2018-10-13] MEDS: LOSARTAN 100 MG (COZAAR) TABLET PO SCH (18:35)
--- NOTE | 2018-10-13 18:36 | NUR ---
BP-172/76, P-79. Dr. Mcfarland notified. Orders to give HS Mary and Yan early.
[2018-10-13 18:38] VITALS: BP 172/76
[2018-10-14] MEDS: METOCLOPRAMIDE INJ 10 MG/2 ML (REGLAN) IVP SCH ×5 (00:44→23:39)
[2018-10-14 05:16] VITALS: BP 159/77
[2018-10-14] MEDS: BETHANECHOL 25 MG (URECHOLINE) TAB PO SCH ×4 (06:04→20:09)
[2018-10-14] MEDS: CATHETER FLUSH 10 ML SYR IV SCH ×3 (06:05→20:15)
[2018-10-14 06:07] LABS: BASOPHILS % (AUTO) 1 % (0-10); EOSINOPHILS # (AUTO) 0.1 10^3/uL (0.0-0.3); EOSINOPHILS % (AUTO) 3 % (0-10); HEMATOCRIT 32 % (35-52); HEMOGLOBIN 9.8 G/DL (11.5-16.0); LYMPHOCYTES % (AUTO) 21 % (12-44); MEAN CORPUSCULAR HEMOGLOBIN 27 PG (25-34); MEAN CORPUSCULAR HGB CONC 30 G/DL (32-36); MEAN CORPUSCULAR VOLUME 88 FL (80-99); MEAN PLATELET VOLUME 9.4 FL (7.4-10.4); MONOCYTES # (AUTO) 0.6 X 10^3 (0.0-1.0); MONOCYTES % (AUTO) 12 % (0-12); NEUTROPHILS # (AUTO) 3.2 X 10^3 (1.8-7.8); NEUTROPHILS % (AUTO) 64 % (42-75); PLATELET COUNT 252 10^3/uL (130-400); RED CELL DISTRIBUTION WIDTH 21.1 % (10.0-14.5)
[2018-10-14 06:30] LABS: ALANINE AMINOTRANSFERASE 18 U/L (0-55); ALBUMIN 3.1 GM/DL (3.2-4.5); ALKALINE PHOSPHATASE 81 U/L (40-136); BILIRUBIN,TOTAL 0.6 MG/DL (0.1-1.0); BUN/CREATININE RATIO 13; CALCIUM 9.3 MG/DL (8.5-10.1); CARBON DIOXIDE 25 MMOL/L (21-32); CHLORIDE 101 MMOL/L (98-107); CREATININE SERUM 0.75 MG/DL (0.60-1.30); GFR ESTIMATED > 60; GLUCOSE 94 MG/DL (70-105); POTASSIUM 3.5 MMOL/L (3.6-5.0); SODIUM 137 MMOL/L (135-145); TOTAL PROTEIN 6.9 GM/DL (6.4-8.2)
[2018-10-14] MEDS: PANTOPRAZOLE 40 MG (PROTONIX) TAB PO SCH ×2 (07:01→20:11)
[2018-10-14 08:00] VITALS: BP 162/77
--- NOTE | 2018-10-14 08:00 | NUR ---
STATES PAIN MUCH IMPROVED. FEELS IS TOLERATING ACTIVITY BETTER. FEELS INCONTINENCY IS IMPROVED, AND MOSTLY JUST DRIBBLING. CONTINUES TO HAVE NAUSEA AND EATING POORLY. FEELS REGLAN IS THE MED THAT HELPS THE MOST.
--- NOTE | 2018-10-14 08:05 | PM&R Progress Note ---
Subjective HPI/CC On Admission Date Seen by Provider: October 14, 2018 Time Seen by Provider: 08:15 Chief complaint: Myopathy with debility. HPI: This is a 68yoWF of [address] 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 Pt has also had some urinary retention, Dr. Greco has been consulted and recommended self caths once a day with bladder scanning as needed and due to all of the 14 days of hospital stay she has become very debilitated and prior level of functioning was independent with use of a cane and now she can only take a few steps to go to the toilet. She did have a low grade fever today, sepsis workup with laboratory was ordered by Dr. Mcfarland to assess for any type of sepsis but we will continue the workup with Dr. Sahu's help along with Dr. Mcfarland, Dr. Cheng and Dr. Greco while she is on the inpatient rehab unit prior to discharge home to live independently. Subjective/Events-last exam Incontinence of urine is much improved Post void residual is only 92cc Labs are okay with Potassium at 3.5 Blood Pressure is very elevated. Dr. Krishna is managing that Many somatic complaints doesn't feel well most of the time Nausea continues even though on maximum medication Having less pain taking the Ultram on schedule Improving her independence in ADLs Conferred with RN Reviewed therapy notes Appreciate Dr Mcfarland Review of Systems General: Fatigue Gastrointestinal: Nausea Musculoskeletal: leg pain Objective Exam Vital Signs Vital Signs Date Time Temp Pulse Resp B/P (MAP) Pulse Ox O2 Delivery O2 Flow Rate FiO2 10/14/18 18:00 98.8 78 18 154/79 (104) 98 Room Air Capillary Refill : General Appearance: No Apparent Distress, Chronically ill, Thin HEENT: PERRL/EOMI, Normal ENT Inspection, Pharynx Normal, Moist Mucous Membranes Neck: Full Range of Motion, Normal Inspection, Non Tender, Supple Respiratory: Chest Non Tender, Lungs Clear, Normal Breath Sounds, No Accessory Muscle Use, No Respiratory Distress Cardiovascular: Regular Rate, Rhythm, No Edema, Systolic Murmur Gastrointestinal: Normal Bowel Sounds, No Organomegaly, No Pulsatile Mass, Non Tender, Soft Back: Normal Inspection, No CVA Tenderness, No Vertebral Tenderness Extremity: Normal Capillary Refill, Normal Inspection, Normal Range of Motion, Non Tender, No Calf Tenderness, No Pedal Edema Neurologic/Psychiatric: Alert, Oriented x3, No Motor/Sensory Deficits ( generalized weakness all extremities), Normal Mood/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 FIM Transfers Therapy Code Descriptions/Definitions Functional [place] Measure: 0=Not Assessed/NA 4=Minimal Assistance 1=Total Assistance 5=Supervision or Setup 2=Maximal Assistance 6=Modified [place] 3=Moderate Assistance 7=Complete [place] Therapy Quality Codes: 6 Independent with activity with or without an assistive device 5 Patient requires set up or clean up by helper. Patient completes activity by themselves 4 Supervision or touching assist (CGA). [place] provide cues , steadying assist 3 The helper provides less than half the effort to complete the activity 2 The helper provides more than half the effort to complete the activity 1 Dependent. The helper does all the effort to complete an activity 7 Patient refused to complete or attempt activity 9 The patient did not perform the activity before the current illness or injury 88 Not attempted due to Medical conditions or safety concerns Mental Status/Objective Comprehension: 7 Expression: 7 Social Interaction: 7 Problem Solvin Memory: 7 ADL-Treatment Feedin (Set up) Eating (QC): 5 Groomin Oral Hygiene (QC): 4 Bathin Shower/Bathe Self (QC): 4 Upper Extremity Dressin Upper Body Dressing (QC): 5 Lower Extremity Dressin Lower Body Dressing (QC): 3 On/Off Footwear (QC): 4 Toiletin Toileting Hygiene (QC): 3 Toilet/Commode Transfer: 4 Toilet Transfer (QC): 3 Shower: 4 Assessment/Plan Assessment and Plan Assess & Plan/Chief Complaint Assessment: 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 Acute on chronic depression ESBL UTI Somatic complaints Plan: IRF protocols Home meds Nausea meds Pain meds Dr Greco appreciated Self caths and bladder scan prn daily per Dr Greco orders BM regimen to be maintained since bowels are now moving well Appreciate Dr Mcfarland and Dr Greco and Dr Sahu and Dr Martinez Monitor labs Anticoagulation once no longer a risk for bleeding Nausea and depression addressed by PCP and much improved ESBL UTI with Macrobid Obtain results of sleep study per Dr Cheng when he returns on Sunday (1) Myopathy (2) Atrial fibrillation with rapid ventricular response (3) Palpitations (4) Nausea (5) Headache (6) Atrial fibrillation (7) Iron deficiency (8) Fever (9) Urinary retention (10) Anemia (11) Depression (12) Dyspnea (13) Edema (14) Cardiac murmur (15) GERD (gastroesophageal reflux disease) (16) Cancer of spinal column (17) Debility (18) Late eff nerv injury trnk NEC (19) Leg weakness (20) Anticoagulant long-term use (21) Atrial fibrillation with rapid ventricular response (22) Transfusion of blood during current hospitalization (23) Self-catheterizes urinary bladder (24) Bacteremia due to Streptococcus (25) Fever (26) UTI (urinary tract infection) (27) UTI due to extended-spectrum beta lactamase (ESBL) producing Escherichia coli (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
--- NOTE | 2018-10-14 08:23 | Cardiology Progress Note ---
Subjective Date Seen by Provider: October 14, 2018 Time Seen by Provider: 08:22 Subjective/Events-last exam Patient is sitting up in bed, complaining of nausea. Denies any chest pain or dyspnea. Objective-Cardiology Exam Last Set of Vital Signs Vital Signs 10/14/18 05:16 Temp 98.5 Pulse 73 Resp 18 B/P (MAP) 159/77 (104) Pulse Ox 95 O2 Delivery Room Air Capillary Refill : I&O Intake and Output 10/14/18 00:00 Intake Total 1140 ml Balance 1140 ml Intake Oral 1140 ml Bladder Scan Volume Amount 95 ml # Voids 5 # Bowel Movements 2 General: Alert, Oriented X3, Cooperative HEENT: Atraumatic, PERRLA Neck: Supple, No JVD, No Thyromegaly Lungs: Clear to Auscultation, Normal Air Movement Heart: Regular Rate, Normal S1, Normal S2, No Murmurs Abdomen: Normal Bowel Sounds, Soft, No Tenderness, No Hepatosplenomegaly, No Masses Extremities: No Clubbing, No Cyanosis, No Edema, Normal Pulses, No Tenderness/ Swelling Skin: No Rashes, No Breakdown, No Significant Lesion Neuro: Normal Gait, Normal Speech, Strength at 5/5 X4 Ext, Normal Tone, Sensation Intact Psych/Mental Status: Mental Status NL, Mood NL Results Lab Laboratory Tests 10/14/18 06:00 A/P-Cardiology Admission Diagnosis Strep bacteremia Atrial fibrillation/flutter Anemia Generalized debility Assessment/Plan Status post Streptococcus bacteremia, fever and chills and generalized weakness , started on Rocephin and vancomycin, managed by primary care physician, TITUS done 09/23/18 revealed mild with no vegetation to valves, received Rocephin for 11 days last dose on 10/04, received 4 days of Vanco. Better at this time, continue to monitor UTI- on antibiotic, management per PCP Generalized debility/weakness- continue PT Paroxysmal atrial fibrillation/flutter, currently back in sinus rhythm, maintained on Amiodarone. Dr. Martinez following, ablation procedure was postponed. Continue to monitor rhythm Anemia, has been on iron supplement, s/p blood transfusion. Currently off all OAC. EGD/colonoscopy done revealed no active bleeding, continue to monitor H&H History of chronic anticoagulation, had GI bleed on Pradaxa, intolerant to Coumadin. Xarelto was discontinued secondary to worsening anemia History of multiple episodes of GI bleed. Had workup done by Dr. Alberts and she was restarted on Xarelto, stopped for now and monitor H&H, reportedly had AVM as a source of the intermittent GI bleed Questionable underlying sleep apnea, Dr. Cheng following. Status post iron transfusion with questionable allergic reaction, had similar reaction to different iron product with generalized weakness and generalized body ache, has been managed by Dr. Nicholas History of abnormal baseline EKG with first-degree AV block and right bundle branch block, right ventricular hypertrophy pattern. History of syncope while on atenolol was unable to tolerate the medication in the past. History of pancreatic nodule, had workup with Dr. Alberts Family history of CVA Clinical Quality Measures DVT/VTE Risk/Contraindication: Risk Factor Score Per Nursin RFS Level Per Nursing on Admit: 2=Moderate RUBIO KOHLI October 14, 2018 08:23
--- NOTE | 2018-10-14 08:30 | NUR ---
DRS. MARSHALL AND GONZÁLEZ NOTIFIED OF CONTINUING HTN. THIS AM 162/77 - 81 WITH NO ANTIHYPERTENSIVES UNTIL THIS MARE. WILL STAT ON HCTZ.
--- NOTE | 2018-10-14 08:57 | Cardiology Progress Note ---
Subjective Date Seen by Provider: October 14, 2018 Time Seen by Provider: 08:56 Subjective/Events-last exam Patient is in bed, complaining of fatigue and loss of energy Review of Systems General: No Chills, No Night Sweats; Fatigue, Malaise; No Appetite, No Other HEENT: No Head Aches, No Visual Changes, No Eye Pain, No Ear Pain, No Dysphasia , No Sinus Congestion, No Post Nasal Drip, No Sore Throat, No Other Pulmonary: No Dyspnea, No Cough, No Pleuritic Chest Pain, No Other Cardiovascular: No: Chest Pain, Palpitations, Orthopnea, Paroxysmal Noc. Dyspnea, Edema, Lt Headedness, Other Objective-Cardiology Exam Last Set of Vital Signs Vital Signs 10/14/18 05:16 Temp 98.5 Pulse 73 Resp 18 B/P (MAP) 159/77 (104) Pulse Ox 95 O2 Delivery Room Air Capillary Refill : I&O Intake and Output 10/14/18 00:00 Intake Total 1140 ml Balance 1140 ml Intake Oral 1140 ml Bladder Scan Volume Amount 95 ml # Voids 5 # Bowel Movements 2 General: Alert, Oriented X3, Cooperative HEENT: Atraumatic, PERRLA Neck: Supple, No JVD, No Thyromegaly Lungs: Clear to Auscultation, Normal Air Movement Heart: Regular Rate, Normal S1, Normal S2, Other (SM at LSB) Abdomen: Normal Bowel Sounds, Soft, No Tenderness, No Hepatosplenomegaly, No Masses Extremities: No Clubbing, No Cyanosis, No Edema, Normal Pulses, No Tenderness/ Swelling Skin: No Rashes, No Breakdown, No Significant Lesion Neuro: Normal Gait, Normal Speech, Strength at 5/5 X4 Ext, Normal Tone, Sensation Intact Psych/Mental Status: Mental Status NL, Mood NL Results Lab Laboratory Tests 10/14/18 06:00 A/P-Cardiology Admission Diagnosis Strep bacteremia Atrial fibrillation/flutter Anemia Generalized debility Assessment/Plan Status post Streptococcus bacteremia, fever and chills and generalized weakness , started on Rocephin and vancomycin, managed by primary care physician, TITUS done 09/23/18 revealed mild with no vegetation to valves, received Rocephin for 11 days last dose on 10/04, received 4 days of Vanco. Better at this time, continue to monitor UTI- on antibiotic, management per PCP Hypertension, on Losartan, Cardizem. Add HCTZ and monitor BP Generalized debility/weakness- continue PT Paroxysmal atrial fibrillation/flutter, currently back in sinus rhythm, maintained on Amiodarone. Dr. Martinez following, ablation procedure was postponed. Continue to monitor rhythm Anemia, has been on iron supplement, s/p blood transfusion. Currently off all OAC. EGD/colonoscopy done revealed no active bleeding, continue to monitor H&H History of chronic anticoagulation, had GI bleed on Pradaxa, intolerant to Coumadin. Xarelto was discontinued secondary to worsening anemia History of multiple episodes of GI bleed. Had workup done by Dr. Alberts and she was restarted on Xarelto, stopped for now and monitor H&H, reportedly had AVM as a source of the intermittent GI bleed Questionable underlying sleep apnea, Dr. Cheng following. Status post iron transfusion with questionable allergic reaction, had similar reaction to different iron product with generalized weakness and generalized body ache, has been managed by Dr. Nicholas History of abnormal baseline EKG with first-degree AV block and right bundle branch block, right ventricular hypertrophy pattern. History of syncope while on atenolol was unable to tolerate the medication in the past. History of pancreatic nodule, had workup with Dr. Alberts Family history of CVA Clinical Quality Measures DVT/VTE Risk/Contraindication: Risk Factor Score Per Nursin RFS Level Per Nursing on Admit: 2=Moderate DAMON CLAUDIO MD October 14, 2018 08:57
--- NOTE | 2018-10-14 09:09 | Physical Therapy Daily Note ---
PT Daily Note-Current Subjective comments she just doesnt feel well. Asks " am I contagious?" This DIRECTOR CHANNEL explained isolation practice etc. In PM Rx pt. states she is feeling so much more weak than this morning and not sure what she can do. Pt. states she feels she worked really hard in the morning and is now so tired. This DIRECTOR CHANNEL discussed that since the future and prognosis for her condition is seemingly unknown it might be best to learn management of w/c as well as gait for safe function after DC. Pt. understands and agrees Pain Numeric Pain Scale: 3 Location: Left Location Body Site: Knee Pain Description: Ache Mental Status Patient Orientation: Normal For Age Transfers Therapy Code Descriptions/Definitions Functional [place] Measure: 0=Not Assessed/NA 4=Minimal Assistance 1=Total Assistance 5=Supervision or Setup 2=Maximal Assistance 6=Modified [place] 3=Moderate Assistance 7=Complete [place] Therapy Quality Codes: 6 Independent with activity with or without an assistive device 5 Patient requires set up or clean up by helper. Patient completes activity by themselves 4 Supervision or touching assist (CGA). [place] provide cues , steadying assist 3 The helper provides less than half the effort to complete the activity 2 The helper provides more than half the effort to complete the activity 1 Dependent. The helper does all the effort to complete an activity 7 Patient refused to complete or attempt activity 9 The patient did not perform the activity before the current illness or injury 88 Not attempted due to Medical conditions or safety concerns Transfers (B, C, W/C) (FIM): 5 (pm) Scootin Rollin Supine to/from Sit: 5 Sit to/from Stand: 5 (PM Rx 4) Bed to/from Chair: 5 needs seat height raised for ease of TRF. Left knee and hip weakness limits knee and hip flexion under load. PM Rx pt. required min to mod assist for sit to sand multiple trials Weight Bearing Right Lower Extremity: Right Full Weight Bearing Left Lower Extremity: Left Full Weight Bearing Gait Training Does the Patient Walk?: Yes Gait (FIM): 2 (PM 1) Distance (FIM): 2=230-85 ft (50x2) Gait Level of Assist: 4 Gait Persons Needed: 1 Gait Assistive Device: FWW w/c to follow in AM, PM Rx pt. was not able to ambulate functionally and really only took 2-3 steps side ways with FWW to TRF requiring MOD assist Wheelchair Training Does the Pt Use a Wheelchair?: Yes Wheelchair (FIM): 3 Wheelchair Level of Assist: 4 Type of Wheelchair: Manual needs instruction for turning and manuever in tight spaces Exercises Supine Ex: Bridging, Ankle pumps, Quad Set, Rolling, Glut sets, Heel Slides, Short Arc Quads, Scooting, Straight leg raise (difficult), Hip abd/add ( assisted on left) Supine Reps: 12 Seated Therapy Exercises: Ankle pumps, Sit to stand, Long arc quads, Hip flexion Seated Reps: 10 PM Rx pt. performed same LE supine therex as well as UE presses and shoulder alt flexion all x 15 reps Treatments pt. struggles with coordination of movement for managing w/c pepe to push one wheel forward while the other back as well as moving feet and hands to coordinate w/c turns etc Assessment Current Status: Fair Progress c/o new dxd infection has weakened her, Pts performance and function in PM were greatly declined with pt. c/o weakness and struggle to TRF and stay on feet, pt.s function waxes and wanes and this DIRECTOR CHANNEL feels w/c training may be profitable as pt. may need to use this mode for safety at times PT Short Term Goals Short Term Goals Time Frame: October 14, 2018 Transfers (B,C,W/C) (FIM): 5 Gait (FIM): 2 Distance (FIM): 7=908-63 ft Gait Assistive Device: FWW Wheelchair Distance: 100' PT Fpc Goals Fpc Goals PT Fpc Goals Time Frame: October 25, 2018 Transfers (B,C,W/C) (FIM): 7 Sit to Lying (QC): 6 Lying-Sitting on Side/Bed(QC): 6 Sit to Stand (QC): 6 Rollin Roll Left to Right (QC): 6 Chair/Fyj-yu-Albra Xfer(QC): 6 Car Transfer (QC): 6 Does the Patient Walk: Yes Gait (FIM): 6 Gait distance (FIM): 3=150 ft Walk 10 feet (QC): 6 Walk 10ft-Uneven Surface(QC): 5 Walk 50ft with 2 Turns (QC): 6 Walk 150 ft (QC): 6 Gait Assistive Device: FWW Does the Pt use WC or Scooter?: No Stairs (FIM): 2 # of Steps: 1 1 Step (curb) (QC): 6 4 Steps (QC): 88 12 Steps (QC): 88 Picking up an Object (QC): 88 PT Plan Treatment/Plan Treatment Plan: Continue Plan of Care Treatment Plan: Bed Mobility, Education, Functional Activity Rafia, Functional Strength, Group Therapy, Gait, Safety, Therapeutic Exercise, Transfers Treatment Duration: October 25, 2018 Frequency: At least 5 of 7 days/Wk (IRF) Estimated Hrs Per Day: 1.5 hours per day Patient and/or Family Agrees t: Yes Safety Risks/Education Patient Education: Gait Training, Transfer Techniques, Correct Positioning, W/ C Management, Disease Process, Safety Issues Teaching Recipient: Patient Teaching Methods: Demonstration, Discussion Response to Teaching: Verbalize Understanding, Return Demonstration, Reinforcement Needed Time/GCodes Time In: 815 (1315) Time Out: 900 (1400) Total Billed Treatment 1,w/c 20m,FA25m,EX30m,GT15m G Codes Necessary: EYAL Ross DIRECTOR CHANNEL October 14, 2018 09:09
[2018-10-14] MEDS: SERTRALINE 50 MG (ZOLOFT) TABLET PO SCH ×2 (09:11→20:09)
[2018-10-14] MEDS: AMIODARONE 200 MG (CORDARONE) TAB PO SCH ×2 (09:11→20:09)
[2018-10-14] MEDS: DOCUSATE SODIUM 100 MG (COLACE) CAP PO SCH ×2 (09:11→20:13)
[2018-10-14] MEDS: POLYETHYLENE GLYCOL 17 GM (MIRALAX) PACK PO SCH ×2 (09:12→20:11)
[2018-10-14] MEDS: NITROFURANTOIN 100 MG (MACROBID) CAPSULE PO SCH ×2 (09:12→20:09)
--- NOTE | 2018-10-14 10:01 | Progress Note-Urology ---
Progress Note-Urology Progress Notes/Assess & Plan Progress/Assessment & Plan CONTINUES VOIDING WELL. PVR UNDER 100CC. TOLERATES URECHOLINE WELL Final Diagnosis URINE RETENTION KEITH LYNN MD October 14, 2018 10:01
[2018-10-14] MEDS: HYDROCHLOROTHIAZIDE 25 MG (HCTZ) TAB PO SCH (10:47)
--- NOTE | 2018-10-14 10:48 | Occupational Ther Daily Note ---
OT Current Status-Daily Note Subjective No pain reported. However, during treatment pt. states that she is nauseated. Appearance Pt. up in chair. Alert and oriented. Declines showering stating that she did yesterday. Agrees to treatment. Mental Status/Objective Patient Orientation: Person, Place Therapy Code Descriptions/Definitions Functional [place] Measure: 0=Not Assessed/NA 4=Minimal Assistance 1=Total Assistance 5=Supervision or Setup 2=Maximal Assistance 6=Modified [place] 3=Moderate Assistance 7=Complete [place] ADL-Treatment Therapy Code Descriptions/Definitions Functional [place] Measure: 0=Not Assessed/NA 4=Minimal Assistance 1=Total Assistance 5=Supervision or Setup 2=Maximal Assistance 6=Modified [place] 3=Moderate Assistance 7=Complete [place] Therapy Quality Codes: 6 Independent with activity with or without an assistive device 5 Patient requires set up or clean up by helper. Patient completes activity by themselves 4 Supervision or touching assist (CGA). [place] provide cues , steadying assist 3 The helper provides less than half the effort to complete the activity 2 The helper provides more than half the effort to complete the activity 1 Dependent. The helper does all the effort to complete an activity 7 Patient refused to complete or attempt activity 9 The patient did not perform the activity before the current illness or injury 88 Not attempted due to Medical conditions or safety concerns Lower Body Dressing (FIM): 5 Lower Body Dressing (QC): 4 On/Off Footwear (QC): 4 (Pt. able to doff tennis shoes with no difficulty.) Transfers (B, C, W/C) (FIM): 4 (CGA sit-stand. Min assist stand-sit. Max cues in stance.) Other Treatment Pt. tolerated OT treatment. Pt. required cues for sequencing. Practiced self propulsion in wheelchair. Noted that pt. is "shaky" throughout treatment. States that previous to this all starting, she did not have tremors. Pt. is slow in wheelchair and requires cues at times for appropriate transfer. Went to therapy gym. Stood three times at parallel bar with cues for safety in correct stance. Pt. states that she is nauseated and requests to sit down. Each stand lasted approximately 30 seconds. Completed 15 minutes, 5 minute sections on armbike at min resistance. Pt. monitored during this and seems to do okay. Went to therapy kitchen and practiced standing at sink. Noted that pt. leans back and seems to hold on tightly to sink. Encouraged to lean into sink/counter area and put weight onto arms. This was better. Talked with her about easy things to make vs. using oven/stove. Also talked with her about having someone with her at home at times to assist. Pt. states that she will have no one that can assist. Pt. is encouraged to have her grandson take pictures of her bathroom at home so that OT can give suggestions for safety and independence. Went back to gym and pt. donned 1 lb. wrist weights. Completed several therapy tasks but states that it makes her too tired. Self propelled back to room and cues needed to transfer to bed by pivoting from wheelchair. All needs met in room. Education OT Patient Education: Correct positioning, Exercise program, Modified ADL techniques, Progress toward Goal/Update tx plan, Purpose of tx/functional activities, Reviewed precautions, Rehab process, Transfer techniques Teaching Recipient: Patient Teaching Methods: Demonstration, Discussion Response to Teaching: Verbalize Understanding, Return Demonstration OT Short Term Goals Short Term Goals Time Frame: October 21, 2018 Eating(FIM): 5 Grooming(FIM): 5 Bathing(FIM): 5 Upper Body Dressing(FIM): 5 Lower Body Dressing(FIM): 5 Toileting(FIM): 5 Transfers (B,C,W/C) (FIM): 5 Toilet/Commode Transfer(FIM): 5 Shower Transfer(FIM): 4 Additional Short Term Goals: 1-Demonstrate ADL Tasks, 2-Verbalize Understanding , 3-ImproveStrength/Rafia 1=Demonstrate adherence to instructed precautions during ADL tasks. 2=Patient will verbalize/demonstrate understanding of assistive devices/ modifications for ADL. 3=Patient will improve strength/tolerance for activity to enable patient to perform ADL's. OT Halfway Goals Halfway Goals Time Frame: November 04, 2018 Eating (FIM): 6 Eating (QC): 6 Groomin Oral Hygiene (QC): 6 Bathing(FIM): 5 Shower/Bathe Self (QC): 5 Upper Body Dressing(FIM): 6 Upper Body Dressing (QC): 6 Lower Body Dressing(FIM): 6 Lower Body Dressing (QC): 6 On/Off Footwear (QC): 6 Toileting(FIM): 6 Toileting Hygiene (QC): 6 Transfers (B,C,W/C) (FIM): 6 Toilet/Commode Transfer(FIM): 6 Toilet/Commode Transfer (QC): 6 Shower Transfer(FIM): 5 Additional Goals: 1-Demonstrate ADL Tasks, 2-Verbalize Understanding, 3- ImproveStrength/Rafia 1=Demonstrate adherence to instructed precautions during ADL tasks. 2=Patient will verbalize/demonstrate understanding of assistive devices/ modifications for ADL. 3=Patient will improve strength/tolerance for activity to enable patient to perform ADL's. OT Education/Plan Problem List/Assessment Assessment: Decreased Activ Tolerance, Decreased UE Strength, Dependent Transfers, Impaired Coordination, Impaired Funct Balance, Impaired I ADL's, Impaired Self-Care Skills Discharge Recommendations Plan/Recommendations: Continue POC Comment To be determined. Treatment Plan/Plan of Care Treatment,Training & Education: Yes Patient would benefit from OT for education, treatment and training to promote independence in ADL's, mobility, safety and/or upper extremity function for ADL' s. Plan of Care: ADL Retraining, Functional Mobility, Group Exercise/Act as Ind, UE Funct Exercise/Act Treatment Duration: November 04, 2018 Frequency: At least 5 of 7 days/Wk (IRF) Estimated Hrs Per Day: 1.5 hours per day Agreement: Yes Rehab Potential: Fair Time/GCodes Start Time: 09:15 Stop Time: 10:45 Total Time Billed (hr/min): 90 Billed Treatment Time 1, Ex x 30minutes, FA x 60minutes SADE YATES OT October 14, 2018 10:48
[2018-10-14] MEDS: ONDANSETRON 4 MG/2 ML (SDV) Z0FRAN IVP PRN ×2 (10:51→20:15)
[2018-10-14] MEDS: VITAMIN D3 1,000 UNITS (CHOLECALCIFEROL) TABLET PO SCH (10:53)
--- NOTE | 2018-10-14 14:00 | NUR ---
STATES NAUSEA BETTER WITH IV REGLAN AND ZOFRAN.
--- NOTE | 2018-10-14 16:53 | Progress Note (SOAP) ---
Subjective Date Seen by a Provider: October 14, 2018 Time Seen by a Provider: 16:50 Subjective/Events-last exam Fwup beta strep bacteremia, paroxysmal atrial fibrillation, chronic anemia, IV iron transfusion reaction, weakness, colonic polyps, history of AVMs on capsule endoscopy, urinary retention, nausea, constipation. In isolation for ESBL positive UTI. Having routine BMs. Objective Exam Vital Signs Date Time Temp Pulse Resp B/P (MAP) Pulse Ox O2 Delivery O2 Flow Rate FiO2 10/14/18 09:00 Room Air 10/14/18 05:16 98.5 73 18 159/77 (104) 95 Room Air 10/14/18 01:00 74 10/13/18 20:00 Room Air 10/13/18 19:00 83 10/13/18 18:38 99.2 79 18 172/76 (108) 96 Room Air I & O 10/14/18 07:00 Intake Total 1090 ml Balance 1090 ml Capillary Refill : General Appearance: No Apparent Distress Neck: Supple Respiratory: Lungs Clear Cardiovascular: Regular Rate, Rhythm, Systolic Murmur Gastrointestinal: normal bowel sounds, non tender, soft Extremity: Non Tender, No Calf Tenderness, No Pedal Edema Neurologic/Psychiatric: Alert, Oriented x3 Skin: Warm/Dry Results Lab Laboratory Tests 10/14/18 06:00: White Blood Count 5.0, Red Blood Count 3.67L, Hemoglobin 9.8L, Hematocrit 32L, Mean Corpuscular Volume 88, Mean Corpuscular Hemoglobin 27, Mean Corpuscular Hemoglobin Concent 30L, Red Cell Distribution Width 21.1H, Platelet Count 252, Mean Platelet Volume 9.4, Neutrophils (%) (Auto) 64, Lymphocytes (%) (Auto) 21, Monocytes (%) (Auto) 12, Eosinophils (%) (Auto) 3, Basophils (%) (Auto) 1, Neutrophils # (Auto) 3.2, Lymphocytes # (Auto) 1.0, Monocytes # (Auto) 0.6, Eosinophils # (Auto) 0.1, Basophils # (Auto) 0.0, Sodium Level 137, Potassium Level 3.5L, Chloride Level 101, Carbon Dioxide Level 25, Anion Gap 11, Blood Urea Nitrogen 10, Creatinine 0.75, Estimat Glomerular Filtration Rate > 60, BUN/ Creatinine Ratio 13, Glucose Level 94, Calcium Level 9.3, Corrected Calcium 10.0 , Total Bilirubin 0.6, Aspartate Amino Transf (AST/SGOT) 15, Alanine Aminotransferase (ALT/SGPT) 18, Alkaline Phosphatase 81, Total Protein 6.9, Albumin 3.1L Microbiology 10/10/18 Urine Culture - Final, Complete Escherichia coli Assessment/Plan Assessment/Plan Assess & Plan/Chief Complaint 1. Recent Strep Bacteremia--resolved 2. Paroxyxmal Atrial Fibrillation--back in NSR, on amiodarone, anticoagulants on hold due to anemia, EP discussing right heart ablation due to A flutter progressing to A fib but patient has decided to hold on this for now 3. Iron Deficiency Anemia--H/H improved post transfusion and with hold of anticoagulants--Hgb stable 4. Hypertension--stable 5. Urinary Retention--on urecholine and flomax and improving 6. Weakness--PT/OT 7. Nausea--using zofran prn 8. Constipation--using miralax routinely 9. ESBL positive UTI--on Macrobid Clinical Quality Measures DVT/VTE Risk/Contraindication: Risk Factor Score Per Nursin RFS Level Per Nursing on Admit: 2=Moderate ANTHONY PERDOMO DO October 14, 2018 16:52
--- NOTE | 2018-10-14 16:55 | NUR ---
WAS INCONTINENT OF A LARGE AMOUNT OF URINE IN BRIEF AND THEN VOIDED 100 CC IN TOILET. BLADDER SCAN THEN DONE AND SHOWED 545 CC URINE. STRAIGHT CATH'D AND 500 CC DARK URINE RETURN WITH FOUL ODOR.
[2018-10-14] MEDS: TAMSULOSIN 0.4 MG (FLOMAX) CAP PO SCH (17:19)
[2018-10-14 18:00] VITALS: BP 154/79
[2018-10-14] MEDS: LOSARTAN 100 MG (COZAAR) TABLET PO SCH (20:08)
[2018-10-14] MEDS: DILTIAZEM 240 MG (CARDIZEM CD) CAP PO SCH (20:09)
[2018-10-15 06:00] VITALS: BP 162/73
[2018-10-15] MEDS: BETHANECHOL 25 MG (URECHOLINE) TAB PO SCH ×4 (06:36→20:59)
[2018-10-15] MEDS: METOCLOPRAMIDE INJ 10 MG/2 ML (REGLAN) IVP SCH ×3 (06:46→18:04)
[2018-10-15] MEDS: CATHETER FLUSH 10 ML SYR IV SCH ×3 (06:47→21:10)
[2018-10-15] MEDS: PANTOPRAZOLE 40 MG (PROTONIX) TAB PO SCH ×2 (06:47→21:10)
--- NOTE | 2018-10-15 07:53 | Progress Note-Urology ---
Progress Note-Urology Progress Notes/Assess & Plan Progress/Assessment & Plan PATIENT STARTED TO HAVE SOME PVR LAST NIGHT AND THIS AM NEEDING I.C. PATIENT UNWILLING TO LEARN ISC. PLAN WHEN DISCHARGED ON FLOMAX AND URECHOLINE TO HAVE C VISIT WEEKLY AND PRN FOR I.C TO KEEP PVR UNDER 350CC PLAN EXPLAINED TO PATIENT Final Diagnosis URINE RETENTION KEITH LYNN MD October 15, 2018 07:53
[2018-10-15 08:00] VITALS: BP 112/67
--- NOTE | 2018-10-15 08:00 | NUR ---
FRUSTRATED. STATES "LEGS DON'T SEEM TO WANT TO WORK TODAY". DR. MARSHALL AND LEAH UPDATED WITH PAST [address] L[address] RESULTS. DR[address] LYNN ASKED PATIENT IF SHE WANTED TO LEARN SELF-CATHETERIZATION AND PATIENT WOULD RATHER NOT. TENTATIVE PLAN IS FOR HOME HEALTH TO DO INTERMITTENT STRAIGHT CATHS IF SHE DOES GO HOME.
--- NOTE | 2018-10-15 08:14 | Cardiology Progress Note ---
Subjective Date Seen by Provider: October 15, 2018 Time Seen by Provider: 08:13 Subjective/Events-last exam Patient in bed, reports feeling well this morning. Denies any chest pain or dyspnea. Objective-Cardiology Exam Last Set of Vital Signs Vital Signs 10/15/18 06:00 Temp 97.9 Pulse 73 Resp 18 B/P (MAP) 162/73 (102) Pulse Ox 97 O2 Delivery Room Air Capillary Refill : I&O Intake and Output 10/15/18 00:00 Intake Total 950 ml Output Total 600 ml Balance 350 ml Intake Oral 950 ml Output Urine Total 600 ml Bladder Scan Volume Amount 545 ml # Voids 4 General: Alert, Oriented X3, Cooperative HEENT: Atraumatic, PERRLA Neck: Supple, No JVD, No Thyromegaly Lungs: Clear to Auscultation, Normal Air Movement Heart: Regular Rate, Normal S1, Normal S2, Other (SM at LSB) Abdomen: Normal Bowel Sounds, Soft, No Tenderness, No Hepatosplenomegaly, No Masses Extremities: No Clubbing, No Cyanosis, No Edema, Normal Pulses, No Tenderness/ Swelling Skin: No Rashes, No Breakdown, No Significant Lesion Neuro: Normal Gait, Normal Speech, Strength at 5/5 X4 Ext, Normal Tone, Sensation Intact Psych/Mental Status: Mental Status NL, Mood NL A/P-Cardiology Admission Diagnosis Strep bacteremia Atrial fibrillation/flutter Anemia Generalized debility Assessment/Plan Status post Streptococcus bacteremia, fever and chills and generalized weakness , started on Rocephin and vancomycin, managed by primary care physician, TITUS done 09/23/18 revealed mild with no vegetation to valves, received Rocephin for 11 days last dose on 10/04, received 4 days of Vanco. Better at this time, continue to monitor UTI- on antibiotic, management per PCP Hypertension, started on HCTZ yesterday, continue to monitor. Generalized debility/weakness- continue PT Paroxysmal atrial fibrillation/flutter, currently back in sinus rhythm, maintained on Amiodarone. Dr. Martinez following, ablation procedure was postponed. Continue to monitor rhythm Anemia, has been on iron supplement, s/p blood transfusion. Currently off all OAC. EGD/colonoscopy done revealed no active bleeding, continue to monitor H&H History of chronic anticoagulation, had GI bleed on Pradaxa, intolerant to Coumadin. Xarelto was discontinued secondary to worsening anemia History of multiple episodes of GI bleed. Had workup done by Dr. Alberts and she was restarted on Xarelto, stopped for now and monitor H&H, reportedly had AVM as a source of the intermittent GI bleed Questionable underlying sleep apnea, Dr. Cheng following. Status post iron transfusion with questionable allergic reaction, had similar reaction to different iron product with generalized weakness and generalized body ache, has been managed by Dr. Nicholas History of abnormal baseline EKG with first-degree AV block and right bundle branch block, right ventricular hypertrophy pattern. History of syncope while on atenolol was unable to tolerate the medication in the past. History of pancreatic nodule, had workup with Dr. Alberts Family history of CVA Clinical Quality Measures DVT/VTE Risk/Contraindication: Risk Factor Score Per Nursin RFS Level Per Nursing on Admit: 2=Moderate RUBIO KOHLI October 15, 2018 08:14
--- NOTE | 2018-10-15 08:29 | PM&R Progress Note ---
Subjective HPI/CC On Admission Date Seen by Provider: October 15, 2018 Time Seen by Provider: 08:00 Chief complaint: Myopathy with debility. HPI: This is a 68[address] 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 Pt has also had some urinary retention, Dr. Greco has been consulted and recommended self caths once a day with bladder scanning as needed and due to all of the 14 days of hospital stay she has become very debilitated and prior level of functioning was independent with use of a cane and now she can only take a few steps to go to the toilet. She did have a low grade fever today, sepsis workup with laboratory was ordered by Dr. Mcfarland to assess for any type of sepsis but we will continue the workup with Dr. Sahu's help along with Dr. Mcfarland, Dr. Cheng and Dr. Greco while she is on the inpatient rehab unit prior to discharge home to live independently. Subjective/Events-last exam Pt was voiding better but now has incontinence and retention so will do straight in and out catheters. Sleep study will be evaluated by Dr. Cheng and updated by him to the Pt. HCTZ was started due to elevated BP. Overall very negative and multiple somatic complaints, appears to be acute on chronic issue. Having less pain taking the Ultram on schedule Improving her independence in ADLs Conferred with RN Reviewed therapy notes Appreciate Dr Mcfarland Review of Systems General: Fatigue Genitourinary: Incontinence, Retention Neurological: Weakness, Numbness, Incoordination Objective Exam Vital Signs Vital Signs Date Time Temp Pulse Resp B/P (MAP) Pulse Ox O2 Delivery O2 Flow Rate FiO2 10/15/18 17:44 98.4 98 18 172/81 (111) 94 Room Air Capillary Refill : General Appearance: No Apparent Distress, WD/WN, Chronically ill, Thin HEENT: PERRL/EOMI, Normal ENT Inspection, Pharynx Normal, Moist Mucous Membranes Neck: Full Range of Motion, Normal Inspection, Non Tender, Supple Respiratory: Chest Non Tender, Lungs Clear, Normal Breath Sounds, No Accessory Muscle Use, No Respiratory Distress Cardiovascular: Regular Rate, Rhythm, No Edema, Systolic Murmur Gastrointestinal: Normal Bowel Sounds, No Organomegaly, No Pulsatile Mass, Non Tender, Soft Back: Normal Inspection, No CVA Tenderness, No Vertebral Tenderness Extremity: Normal Capillary Refill, Normal Inspection, Normal Range of Motion, Non Tender, No Calf Tenderness, No Pedal Edema Neurologic/Psychiatric: Alert, Oriented x3, No Motor/Sensory Deficits ( generalized weakness all extremities), Normal 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 FIM Transfers Therapy Code Descriptions/Definitions Functional [place] Measure: 0=Not Assessed/NA 4=Minimal Assistance 1=Total Assistance 5=Supervision or Setup 2=Maximal Assistance 6=Modified [place] 3=Moderate Assistance 7=Complete [place] Therapy Quality Codes: 6 Independent with activity with or without an assistive device 5 Patient requires set up or clean up by helper. Patient completes activity by themselves 4 Supervision or touching assist (CGA). [place] provide cues , steadying assist 3 The helper provides less than half the effort to complete the activity 2 The helper provides more than half the effort to complete the activity 1 Dependent. The helper does all the effort to complete an activity 7 Patient refused to complete or attempt activity 9 The patient did not perform the activity before the current illness or injury 88 Not attempted due to Medical conditions or safety concerns Mental Status/Objective Comprehension: 7 Expression: 7 Social Interaction: 7 Problem Solvin Memory: 7 ADL-Treatment Feedin (Set up) Eating (QC): 5 Groomin Oral Hygiene (QC): 4 Bathin Shower/Bathe Self (QC): 4 Upper Extremity Dressin Upper Body Dressing (QC): 5 Lower Extremity Dressin Lower Body Dressing (QC): 4 On/Off Footwear (QC): 4 (Pt. able to doff tennis shoes with no difficulty.) Toiletin Toileting Hygiene (QC): 3 Toilet/Commode Transfer: 4 Toilet Transfer (QC): 3 Shower: 4 Assessment/Plan Assessment and Plan Assess & Plan/Chief Complaint Assessment: 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 Acute on chronic depression ESBL UTI Somatic complaints Plan: IRF protocols Home meds Nausea meds Pain meds Dr Greco appreciated Self caths and bladder scan prn daily per Dr Greco orders BM regimen to be maintained since bowels are now moving well Appreciate Dr Mcfarland and Dr Greco and Dr Sahu and Dr Martinez Monitor labs Anticoagulation once no longer a risk for bleeding Nausea and depression addressed by PCP and much improved ESBL UTI with Macrobid Obtain results of sleep study per Dr Cheng when he returns today (1) Myopathy (2) Atrial fibrillation with rapid ventricular response (3) Palpitations (4) Nausea (5) Headache (6) Atrial fibrillation (7) Iron deficiency (8) Fever (9) Urinary retention (10) Anemia (11) Depression (12) Dyspnea (13) Edema (14) Cardiac murmur (15) GERD (gastroesophageal reflux disease) (16) Cancer of spinal column (17) Debility (18) Late eff nerv injury trnk NEC (19) Leg weakness (20) Anticoagulant long-term use (21) Atrial fibrillation with rapid ventricular response (22) Transfusion of blood during current hospitalization (23) Self-catheterizes urinary bladder (24) Bacteremia due to Streptococcus (25) Fever (26) UTI (urinary tract infection) (27) UTI due to extended-spectrum beta lactamase (ESBL) producing Escherichia coli (28) Somatization disorder YURI MARSHALL DO October 15, 2018 08:29
[2018-10-15] MEDS: ONDANSETRON 4 MG/2 ML (SDV) Z0FRAN IVP PRN (09:19)
[2018-10-15] MEDS: CATHETER FLUSH 10 ML SYR IV PRN (09:20)
[2018-10-15] MEDS: NITROFURANTOIN 100 MG (MACROBID) CAPSULE PO SCH ×2 (09:24→20:58)
[2018-10-15] MEDS: HYDROCHLOROTHIAZIDE 25 MG (HCTZ) TAB PO SCH (09:25)
[2018-10-15] MEDS: DOCUSATE SODIUM 100 MG (COLACE) CAP PO SCH ×2 (09:25→20:59)
[2018-10-15] MEDS: VITAMIN D3 1,000 UNITS (CHOLECALCIFEROL) TABLET PO SCH (09:25)
[2018-10-15] MEDS: AMIODARONE 200 MG (CORDARONE) TAB PO SCH ×2 (09:25→20:59)
[2018-10-15] MEDS: SERTRALINE 50 MG (ZOLOFT) TABLET PO SCH ×2 (09:25→20:59)
[2018-10-15] MEDS: POLYETHYLENE GLYCOL 17 GM (MIRALAX) PACK PO SCH ×2 (09:29→21:01)
--- NOTE | 2018-10-15 10:00 | NUR ---
ATTEMPTED TO GET SLEEP STUDY RESULTS FROM DR. LOPEZ'S OFFICE, BUT THEY STATE THEY DO NOT GIVE IT OUT BEFORE TALKING TO PATIENT ABOUT IT IN OFFICE FIRST. MESSAGE LEFT WITH PULMONARY NURSE TO PLEASE CALL THIS NURSE BACK.
--- NOTE | 2018-10-15 10:13 | Physical Therapy Daily Note ---
PT Daily Note-Current Subjective Pt. in bed upon arrival initially states she feels like she is better, but as bed exercise starts pt. resists . Pt. states that bed exercise of LEs makes her neck and upper back hurt. Pt. then agreed to TRF training and w/c mobility but during the process pt. c/o it is making he worse and is too much . This MEDICAL MANAGER explaining that it would be profitable to work toward a mode of TRF and mobility that she can achieve indep. Pt. agrees that this is rational and practical but doesnt want to proceed after we start Pain Numeric Pain Scale: 3 Location: Medial Location Body Site: Back Pain Description: Ache Mental Status Patient Orientation: Person, Place, Time, Situation, Mumbles Transfers Therapy Code Descriptions/Definitions Functional [place] Measure: 0=Not Assessed/NA 4=Minimal Assistance 1=Total Assistance 5=Supervision or Setup 2=Maximal Assistance 6=Modified [place] 3=Moderate Assistance 7=Complete [place] Therapy Quality Codes: 6 Independent with activity with or without an assistive device 5 Patient requires set up or clean up by helper. Patient completes activity by themselves 4 Supervision or touching assist (CGA). [place] provide cues , steadying assist 3 The helper provides less than half the effort to complete the activity 2 The helper provides more than half the effort to complete the activity 1 Dependent. The helper does all the effort to complete an activity 7 Patient refused to complete or attempt activity 9 The patient did not perform the activity before the current illness or injury 88 Not attempted due to Medical conditions or safety concerns Transfers (B, C, W/C) (FIM): 3 Scootin Rollin Supine to/from Sit: 5 Sit to/from Stand: 3 Bed to/from Chair: 3 Weight Bearing Right Lower Extremity: Right Full Weight Bearing Left Lower Extremity: Left Full Weight Bearing Gait Training gait was not a functional option this date. Pt unable to really achieve safe stance and this MEDICAL MANAGER needed "close to load" positioning for safety during handling Wheelchair Training Does the Pt Use a Wheelchair?: Yes Wheelchair (FIM): 2 Wheelchair Distance: 0=504-65 ft (50x4) Wheelchair Level of Assist: 4 Type of Wheelchair: Manual pt. very frustrated and fatigued with gait training, this date attempted to situate home like environment for pt. to manuever, pt. has consistent difficulty coordinating hand movement and or foot and hand movement to propel requiring many rest breaks as well as assist and repeated instruction Exercises Supine Ex: Bridging, Ankle pumps, Quad Set, Rolling, Glut sets, Heel Slides, Short Arc Quads, Scooting, Straight leg raise (x5x2), Hip abd/add Supine Reps: 15 Seated Therapy Exercises: Sit to stand, Long arc quads, Hip flexion Seated Reps: 12 Standing: Sit to Stand, Weight shifts Standing Reps: 4 Assessment Current Status: Regressing, Fair Progress regressing, gait has not been a safe option last 2 rxs and TRFs SPT w/c to bed and back are mod assist PT Short Term Goals Short Term Goals Time Frame: October 14, 2018 Transfers (B,C,W/C) (FIM): 5 Gait (FIM): 2 Distance (FIM): 9=058-26 ft Gait Assistive Device: FWW Wheelchair Distance: 100' PT Detention Goals Youth Services Specialist Goals PT Detention Goals Time Frame: October 25, 2018 Transfers (B,C,W/C) (FIM): 7 Sit to Lying (QC): 6 Lying-Sitting on Side/Bed(QC): 6 Sit to Stand (QC): 6 Rollin Roll Left to Right (QC): 6 Chair/[id number] Xfer(QC): 6 Car Transfer (QC): 6 Does the Patient Walk: Yes Gait (FIM): 6 Gait distance (FIM): 3=150 ft Walk 10 feet (QC): 6 Walk 10ft-Uneven Surface(QC): 5 Walk 50ft with 2 Turns (QC): 6 Walk 150 ft (QC): 6 Gait Assistive Device: FWW Does the Pt use WC or Scooter?: No Stairs (FIM): 2 # of Steps: 1 1 Step (curb) (QC): 6 4 Steps (QC): 88 12 Steps (QC): 88 Picking up an Object (QC): 88 PT Plan Treatment/Plan Treatment Plan: Continue Plan of Care Treatment Plan: Bed Mobility, Education, Functional Activity Rafia, Functional Strength, Group Therapy, Gait, Safety, Therapeutic Exercise, Transfers Treatment Duration: October 25, 2018 Frequency: At least 5 of 7 days/Wk (IRF) Estimated Hrs Per Day: 1.5 hours per day Patient and/or Family Agrees t: Yes Safety Risks/Education Patient Education: Transfer Techniques, Correct Positioning, W/C Management, Disease Process, Safety Issues Teaching Recipient: Patient Teaching Methods: Demonstration, Discussion Response to Teaching: Verbalize Understanding, Return Demonstration, Reinforcement Needed Time/GCodes Time In: 800 Time Out: 900 Total Billed Treatment Time: 60 Total Billed Treatment 1,EX15m,FA25m,WC20m G Codes Necessary: EYAL Ross MEDICAL MANAGER October 15, 2018 10:13
--- NOTE | 2018-10-15 11:00 | NUR ---
MESSAGE LEFT FOR MIMA NAVA TO FIND OUT RESULTS OF SLEEP STUDY.
--- NOTE | 2018-10-15 11:15 | Occupational Ther Daily Note ---
OT Current Status-Daily Note Subjective No pain reported. Pt. states that she is very worn out this morning. Appearance Pt. in reclining chair. Agrees to work with OT. Mental Status/Objective Patient Orientation: Person, Place Therapy Code Descriptions/Definitions Functional [place] Measure: 0=Not Assessed/NA 4=Minimal Assistance 1=Total Assistance 5=Supervision or Setup 2=Maximal Assistance 6=Modified [place] 3=Moderate Assistance 7=Complete [place] Attachments: IV ADL-Treatment Therapy Code Descriptions/Definitions Functional [place] Measure: 0=Not Assessed/NA 4=Minimal Assistance 1=Total Assistance 5=Supervision or Setup 2=Maximal Assistance 6=Modified [place] 3=Moderate Assistance 7=Complete [place] Therapy Quality Codes: 6 Independent with activity with or without an assistive device 5 Patient requires set up or clean up by helper. Patient completes activity by themselves 4 Supervision or touching assist (CGA). [place] provide cues , steadying assist 3 The helper provides less than half the effort to complete the activity 2 The helper provides more than half the effort to complete the activity 1 Dependent. The helper does all the effort to complete an activity 7 Patient refused to complete or attempt activity 9 The patient did not perform the activity before the current illness or injury 88 Not attempted due to Medical conditions or safety concerns Grooming (FIM): 5 (Set up in chair to brush hair. Pt. brushed teeth in shower. ) Oral Hygiene (QC): 4 Bathing (FIM): 5 (SBA in shower to wash all parts. Pt. able to lean side to side to wash ping area.) Shower/Bathe Self (QC): 4 Upper Body (FIM): 5 Upper Body Dressing (QC): 4 Lower Body Dressing (FIM): 3 (Pt. requires assistance in stance for balance to pull up pants and underwear. ) Lower Body Dressing (QC): 3 On/Off Footwear (QC): 5 Toileting (FIM): 4 (Min assist in stance to pull down pants and underwear.) Toileting Hygiene (QC): 4 Transfers (B, C, W/C) (FIM): 4 (Min assist sit-stand. Poor endurance and slow gait to ambulate to and from shower.) Toilet/Commode Transfer (FIM): 4 Toilet Transfer (QC): 4 Shower Transfer(FIM): 4 Other Treatment Pt. became nauseated after shower. OT provided sprite and let nursing know that pt. did not feel well. Education OT Patient Education: Correct positioning, Modified ADL techniques, Progress toward Goal/Update tx plan, Purpose of tx/functional activities, Reviewed precautions, Rehab process, Transfer techniques Teaching Recipient: Patient Teaching Methods: Demonstration, Discussion Response to Teaching: Verbalize Understanding, Return Demonstration OT Short Term Goals Short Term Goals Time Frame: October 21, 2018 Eating(FIM): 5 Grooming(FIM): 5 Bathing(FIM): 5 Upper Body Dressing(FIM): 5 Lower Body Dressing(FIM): 5 Toileting(FIM): 5 Transfers (B,C,W/C) (FIM): 5 Toilet/Commode Transfer(FIM): 5 Shower Transfer(FIM): 4 Additional Short Term Goals: 1-Demonstrate ADL Tasks, 2-Verbalize Understanding , 3-ImproveStrength/Rafia 1=Demonstrate adherence to instructed precautions during ADL tasks. 2=Patient will verbalize/demonstrate understanding of assistive devices/ modifications for ADL. 3=Patient will improve strength/tolerance for activity to enable patient to perform ADL's. OT Care Home Goals Care Home Goals Time Frame: November 04, 2018 Eating (FIM): 6 Eating (QC): 6 Groomin Oral Hygiene (QC): 6 Bathing(FIM): 5 Shower/Bathe Self (QC): 5 Upper Body Dressing(FIM): 6 Upper Body Dressing (QC): 6 Lower Body Dressing(FIM): 6 Lower Body Dressing (QC): 6 On/Off Footwear (QC): 6 Toileting(FIM): 6 Toileting Hygiene (QC): 6 Transfers (B,C,W/C) (FIM): 6 Toilet/Commode Transfer(FIM): 6 Toilet/Commode Transfer (QC): 6 Shower Transfer(FIM): 5 Additional Goals: 1-Demonstrate ADL Tasks, 2-Verbalize Understanding, 3- ImproveStrength/Rafia 1=Demonstrate adherence to instructed precautions during ADL tasks. 2=Patient will verbalize/demonstrate understanding of assistive devices/ modifications for ADL. 3=Patient will improve strength/tolerance for activity to enable patient to perform ADL's. OT Education/Plan Problem List/Assessment Assessment: Decreased Activ Tolerance, Decreased UE Strength, Dependent Transfers, Impaired Bed Mobility, Impaired Funct Balance, Impaired I ADL's, Impaired Self-Care Skills Discharge Recommendations Plan/Recommendations: Continue POC Therapy D/C Recommendations: 24 hr Supervision Treatment Plan/Plan of Care Treatment,Training & Education: Yes Patient would benefit from OT for education, treatment and training to promote independence in ADL's, mobility, safety and/or upper extremity function for ADL' s. Plan of Care: ADL Retraining, Functional Mobility, Group Exercise/Act as Ind, UE Funct Exercise/Act Treatment Duration: November 04, 2018 Frequency: At least 5 of 7 days/Wk (IRF) Estimated Hrs Per Day: 1.5 hours per day Agreement: Yes Rehab Potential: Fair Time/GCodes Start Time: 09:45 Stop Time: 10:45 Total Time Billed (hr/min): 60 Billed Treatment Time 1, ADL x 4 SADE YATES OT October 15, 2018 11:15
--- NOTE | 2018-10-15 13:03 | Cardiology Progress Note ---
Cardiology SOAP Progress Note Subjective: No EP concerns. Objective: I&O/Vital Signs 10/15/18 06:00 Temp 97.9 Pulse 73 Resp 18 B/P (MAP) 162/73 (102) Pulse Ox 97 O2 Delivery Room Air 10/15/18 00:00 Intake Total 600 ml Output Total 600 ml Balance 0 ml Weight (Pounds): 162 Weight (Ounces): 1.6 Weight (Calculated Kilograms): 73.722382 Constitutional: No appears stated age, No AAO x 3, No apparent distress, No PERRL, No well-developed, No well-nourished, No other Respiratory: No accessory muscle use, No respiratory distress, No chest tender , No chest expansion is symmetric; chest is bilaterally symmetric; No lungs clear to percussion; lungs clear to auscultation; No crackles, No rhonchi, No rales, No stridor, No wheezing, No pleural rub, No other Cardiovascular: regular rate-rhythm; No irregularly irregular, No extra beats, No parasternal heave is noted, No JVD, No edema, No bradycardia, No tachycardia , No point of maximal impulse, No cardiac thrills are palpable; S1 and S2; No gallop/S3, No gallop/S4, No diastolic murmur, No systolic murmur, No friction rub, No click, No other Gastrointestional: No tender, No soft, No round, No distended, No pulsatile mass, No organomegaly, No guarding, No rebound, No tenderness, No hernia, No mass, No audible bowel sounds, No abnormal bowel sounds, No abdominal bruits, No spleenomegaly, No other Extremities: No normal range of motion, No non-tender, No normal inspection, No pedal edema, No calf tenderness, No normal capillary refill, No pelvis stable , No calf tenderness, No inflammation, No pedal edema, No slow capillary refill , No swelling, No other, No abrasion, No clubbing, No cyanosis, No ecchymosis, No laceration, No no lower extremity edema bilateral, No significant edema, No tenderness, No wound Neurologic/Psychiatric: no motor/sensory deficits, alert, normal mood/affect, oriented x 3 Skin: pallor Results/Procedures: Labs Microbiology 10/10/18 Urine Culture - Final, Complete Escherichia coli A/P: Assessment/Dx: Typical atrial flutter, Paroxysmal atrial fibrillation, Recent GI bleeding Plan: Typical atrial flutter, I spoke at length to the patient and Dr. Sahu. Will require typical atrial flutter ablation as an outpatient Paroxysmal atrial fibrillation, currently in sinus rhythm. Continue amiodarone. No oral anticoagulation due to recent GI bleeding. Recent GI bleeding, not on any anticoagulation at this point in time. Dr. Mcfarland following as well. Cardiac EP will sign off. I will see her as an outpatient to set up ablation. Dr Mcfarland to continue cardiology follow up. Thank you for your consultation. Please call me if you have any questions. Jay Martinez MD, FACP, FACC, FSCAI, FHRS, CCDS Interventional Cardiology Cardiac Electrophysiology Vascular Medicine and Endovascular Interventions Tracy MARTINEZ MD October 15, 2018 13:03
--- NOTE | 2018-10-15 14:00 | NUR ---
WHEELED SELF BACK TO ROOM AFTER GROUP THERAPY AND STATES GOT SELF BACK TO BED WITHOUT SUPERVISION. ASKED TO PLEASE CALL FOR HELP AND VOICES UNDERSTANDING. EMESIS X 1 THIS AM.
--- NOTE | 2018-10-15 14:30 | Therapy Group Daily Note ---
Therapy Daily Group Note Patient Education Topic Home Safety, Fall Prevention, Exercises, Other List Below Exercises LE Seated Exercise, Gross Motor, UE Exercise Session Ratio (pt:therapist): 3:1 Goal of Session: Education on ARU Expectations, Home Safety Strategies, Memory Strategies, UE/LE Strengthing Goal Met for this Session: Yes Pt Benefit of Group: Contributions to Others, F/U Use of Strategies @Home, Increased Functional Safety, Increased Functional Strength, Improved Cognition, Recognition of Peers, Socialization Other/Notes Pt. attended group therapy this date. Worked on memory, sequencing, cognitive tasks, UE reaching/strengthening, and functional goal education. Pt. tolerated group well and participated in balloon/ball toss back and forth. Reminisced about past experiences with other group members. Pt. back in room with all needs met at end of treatment. Start Time: 13:00 Stop Time: 14:10 Total Billed Treatment Time: 70 Total Billed Treatment 1, Grp SADE YATES OT October 15, 2018 14:30
--- NOTE | 2018-10-15 14:57 | Cardiology Progress Note ---
Subjective Date Seen by Provider: October 15, 2018 Time Seen by Provider: 08:00 Subjective/Events-last exam patient was seen and evaluated, sitting in a chair, combative fatigue and loss of energy. No chest pain. Review of Systems General: No Chills, No Night Sweats, No Fatigue, No Malaise, No Appetite, No Other HEENT: No Head Aches, No Visual Changes, No Eye Pain, No Ear Pain, No Dysphasia , No Sinus Congestion, No Post Nasal Drip, No Sore Throat, No Other Pulmonary: No Dyspnea, No Cough, No Pleuritic Chest Pain, No Other Cardiovascular: No: Chest Pain, Palpitations, Orthopnea, Paroxysmal Noc. Dyspnea, Edema, Lt Headedness, Other Objective-Cardiology Exam Last Set of Vital Signs Vital Signs 10/15/18 06:00 Temp 97.9 Pulse 73 Resp 18 B/P (MAP) 162/73 (102) Pulse Ox 97 O2 Delivery Room Air Capillary Refill : I&O Intake and Output 10/15/18 00:00 Intake Total 950 ml Output Total 600 ml Balance 350 ml Intake Oral 950 ml Output Urine Total 600 ml Bladder Scan Volume Amount 545 ml # Voids 4 General: Alert, Oriented X3, Cooperative HEENT: Atraumatic, PERRLA Neck: Supple, No JVD, No Thyromegaly Lungs: Clear to Auscultation, Normal Air Movement Heart: Regular Rate, Normal S1, Normal S2, Other (SM at LSB) Abdomen: Normal Bowel Sounds, Soft, No Tenderness, No Hepatosplenomegaly, No Masses Extremities: No Clubbing, No Cyanosis, No Edema, Normal Pulses, No Tenderness/ Swelling Skin: No Rashes, No Breakdown, No Significant Lesion Neuro: Normal Gait, Normal Speech, Strength at 5/5 X4 Ext, Normal Tone, Sensation Intact Psych/Mental Status: Mental Status NL, Mood NL A/P-Cardiology Admission Diagnosis Strep bacteremia Atrial fibrillation/flutter Anemia Generalized debility Assessment/Plan Status post Streptococcus bacteremia, fever and chills and generalized weakness , started on Rocephin and vancomycin, managed by primary care physician, TITUS done 09/23/18 revealed mild with no vegetation to valves, received Rocephin for 11 days last dose on 10/04, received 4 days of Vanco. Better at this time, continue to monitor UTI- on antibiotic, management per PCP Hypertension, started on HCTZ yesterday, continue to monitor. Generalized debility/weakness- continue PT Paroxysmal atrial fibrillation/flutter, currently back in sinus rhythm, maintained on Amiodarone. Dr. Martinez following, ablation procedure was postponed. Continue to monitor rhythm Anemia, has been on iron supplement, s/p blood transfusion. Currently off all OAC. EGD/colonoscopy done revealed no active bleeding, continue to monitor H&H History of chronic anticoagulation, had GI bleed on Pradaxa, intolerant to Coumadin. Xarelto was discontinued secondary to worsening anemia History of multiple episodes of GI bleed. Had workup done by Dr. Alberts and she was restarted on Xarelto, stopped for now and monitor H&H, reportedly had AVM as a source of the intermittent GI bleed Questionable underlying sleep apnea, Dr. Cheng following. Status post iron transfusion with questionable allergic reaction, had similar reaction to different iron product with generalized weakness and generalized body ache, has been managed by Dr. Nicholas History of abnormal baseline EKG with first-degree AV block and right bundle branch block, right ventricular hypertrophy pattern. History of syncope while on atenolol was unable to tolerate the medication in the past. History of pancreatic nodule, had workup with Dr. Alberts Family history of CVA Clinical Quality Measures DVT/VTE Risk/Contraindication: Risk Factor Score Per Nursin RFS Level Per Nursing on Admit: 2=Moderate DAMON CLAUDIO MD October 15, 2018 14:57
--- NOTE | 2018-10-15 16:00 | NUR ---
SLEEP STUDY RESULTS PLACED ON CHART.
--- NOTE | 2018-10-15 16:15 | NUR ---
INCONTINENT OF A SMALL AMOUNT OF URINE AND THEN VOIDED 50 CC IN TOILET. BLADDER SCAN THEN SHOWED 258 CC.
[2018-10-15 17:44] VITALS: BP 172/81
--- NOTE | 2018-10-15 18:00 | NUR ---
ENCOURAGED TO TRY TO VOID. UP TO BATHROOM AND VOIDED 50 CC. WILL TRY AGAIN LATER.
[2018-10-15] MEDS: TAMSULOSIN 0.4 MG (FLOMAX) CAP PO SCH (18:03)
--- NOTE | 2018-10-15 18:30 | NUR ---
BP LOWER THIS AM, BUT HYPERTENSIVE AGAIN THIS MARE. NIGHT NURSE WILL GIVE 2 ANTIHYPERTENSIVES THIS MARE.
--- NOTE | 2018-10-15 18:46 | Progress Note (SOAP) ---
Subjective Date Seen by a Provider: October 15, 2018 Time Seen by a Provider: 12:45 Subjective/Events-last exam Fwup beta strep bacteremia, paroxysmal atrial fibrillation, chronic anemia, IV iron transfusion reaction, weakness, colonic polyps, history of AVMs on capsule endoscopy, urinary retention, nausea, constipation. In bed--states tired from therapy this morning. Objective Exam Vital Signs Date Time Temp Pulse Resp B/P (MAP) Pulse Ox O2 Delivery O2 Flow Rate FiO2 10/15/18 17:44 98.4 98 18 172/81 (111) 94 Room Air 10/15/18 09:00 Room Air 10/15/18 06:00 97.9 73 18 162/73 (102) 97 Room Air 10/14/18 21:00 Room Air I & O 10/15/18 07:00 Intake Total 950 ml Output Total 1100 ml Balance -150 ml Capillary Refill : General Appearance: No Apparent Distress Neck: Supple Respiratory: Lungs Clear Cardiovascular: Regular Rate, Rhythm, Systolic Murmur Gastrointestinal: normal bowel sounds, non tender, soft Extremity: Non Tender, No Calf Tenderness Neurologic/Psychiatric: Alert, Oriented x3 Skin: Warm/Dry Results Lab Microbiology 10/10/18 Urine Culture - Final, Complete Escherichia coli Assessment/Plan Assessment/Plan Assess & Plan/Chief Complaint 1. Recent Strep Bacteremia--resolved 2. Paroxyxmal Atrial Fibrillation--back in NSR, on amiodarone, anticoagulants on hold due to anemia, EP discussing right heart ablation due to A flutter progressing to A fib but patient has decided to hold on this for now 3. Iron Deficiency Anemia--H/H improved post transfusion and with hold of anticoagulants--Hgb stable 4. Hypertension--stable 5. Urinary Retention--on urecholine and flomax and improved 6. Weakness--PT/OT 7. Nausea--using zofran prn 8. Constipation-patient has been refusing miralax 9. ESBL positive UTI--on Macrobid Clinical Quality Measures DVT/VTE Risk/Contraindication: Risk Factor Score Per Nursin RFS Level Per Nursing on Admit: 2=Moderate ANTHONY PERDOMO DO October 15, 2018 18:46
[2018-10-15] MEDS: DILTIAZEM 240 MG (CARDIZEM CD) CAP PO SCH (20:58)
[2018-10-15] MEDS: LOSARTAN 100 MG (COZAAR) TABLET PO SCH (20:59)
[2018-10-16] MEDS: METOCLOPRAMIDE INJ 10 MG/2 ML (REGLAN) IVP SCH ×4 (00:23→17:24)
[2018-10-16 05:02] VITALS: BP 126/71
[2018-10-16] MEDS: BETHANECHOL 25 MG (URECHOLINE) TAB PO SCH ×4 (06:30→20:44)
[2018-10-16] MEDS: CATHETER FLUSH 10 ML SYR IV SCH ×3 (06:30→20:46)
[2018-10-16] MEDS: ONDANSETRON 4 MG/2 ML (SDV) Z0FRAN IVP PRN ×2 (06:31→16:24)
[2018-10-16] MEDS: PANTOPRAZOLE 40 MG (PROTONIX) TAB PO SCH (07:32)
--- NOTE | 2018-10-16 08:23 | Cardiology Progress Note ---
Subjective Date Seen by Provider: October 16, 2018 Time Seen by Provider: 08:20 Subjective/Events-last exam Patient is sitting at edge of bed, complaining of fatigue. Denies any chest pain , dyspnea, or dizziness. Objective-Cardiology Exam Last Set of Vital Signs Vital Signs 10/16/18 05:02 Temp 98.0 Pulse 67 Resp 18 B/P (MAP) 126/71 (89) Pulse Ox 95 O2 Delivery Room Air Capillary Refill : I&O Intake and Output 10/16/18 00:00 Intake Total 750 ml Output Total 600 ml Balance 150 ml Intake Oral 750 ml Output Urine Total 600 ml Bladder Scan Volume Amount 258 ml # Urine Diapers 4 General: Alert, Oriented X3, Cooperative HEENT: Atraumatic, PERRLA Neck: Supple, No JVD, No Thyromegaly Lungs: Clear to Auscultation, Normal Air Movement Heart: Regular Rate, Normal S1, Normal S2, Other (SM at LSB) Abdomen: Normal Bowel Sounds, Soft, No Tenderness, No Hepatosplenomegaly, No Masses Extremities: No Clubbing, No Cyanosis, No Edema, Normal Pulses, No Tenderness/ Swelling Skin: No Rashes, No Breakdown, No Significant Lesion Neuro: Normal Gait, Normal Speech, Strength at 5/5 X4 Ext, Normal Tone, Sensation Intact Psych/Mental Status: Mental Status NL, Mood NL A/P-Cardiology Admission Diagnosis Strep bacteremia Atrial fibrillation/flutter Anemia Generalized debility Assessment/Plan Status post Streptococcus bacteremia, fever and chills and generalized weakness , started on Rocephin and vancomycin, managed by primary care physician, TITUS done 09/23/18 revealed mild with no vegetation to valves, received Rocephin for 11 days last dose on 10/04, received 4 days of Vanco. Better at this time, continue to monitor ESBL UTI- on antibiotic, management per PCP Hypertension, controlled, continue to monitor. Generalized debility/weakness- continue PT Paroxysmal atrial fibrillation/flutter, currently back in sinus rhythm, maintained on Amiodarone. Dr. Martinez following, ablation procedure was postponed. Continue to monitor rhythm Anemia, has been on iron supplement, s/p blood transfusion. Currently off all OAC. EGD/colonoscopy done revealed no active bleeding, continue to monitor H&H History of chronic anticoagulation, had GI bleed on Pradaxa, intolerant to Coumadin. Xarelto was discontinued secondary to worsening anemia History of multiple episodes of GI bleed. Had workup done by Dr. Alberts and she was restarted on Xarelto, stopped for now and monitor H&H, reportedly had AVM as a source of the intermittent GI bleed Questionable underlying sleep apnea, Dr. Cheng following. Status post iron transfusion with questionable allergic reaction, had similar reaction to different iron product with generalized weakness and generalized body ache, has been managed by Dr. Nicholas History of abnormal baseline EKG with first-degree AV block and right bundle branch block, right ventricular hypertrophy pattern. History of syncope while on atenolol was unable to tolerate the medication in the past. History of pancreatic nodule, had workup with Dr. Alberts Family history of CVA Clinical Quality Measures DVT/VTE Risk/Contraindication: Risk Factor Score Per Nursin RFS Level Per Nursing on Admit: 2=Moderate RUBIO KOHLI October 16, 2018 08:23
--- NOTE | 2018-10-16 08:36 | PM&R Progress Note ---
Subjective HPI/CC On Admission Date Seen by Provider: October 16, 2018 Time Seen by Provider: 08:15 Chief complaint: Myopathy with debility. HPI: This is a 68[address]WF [address] 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 Pt has also had some urinary retention, Dr. Greco has been consulted and recommended self caths once a day with bladder scanning as needed and due to all of the 14 days of hospital stay she has become very debilitated and prior level of functioning was independent with use of a cane and now she can only take a few steps to go to the toilet. She did have a low grade fever today, sepsis workup with laboratory was ordered by Dr. Mcfarland to assess for any type of sepsis but we will continue the workup with Dr. Sahu's help along with Dr. Mcfarland, Dr. Cheng and Dr. Greco while she is on the inpatient rehab unit prior to discharge home to live independently. Subjective/Events-last exam Multiple somatic issues continue Talked frankly to the pt about jail placement Meets criteria for skilled care for slower recovery Nausea continues Urinary issues are very complex considering the spinal cord neoplastic process from years ago and chronic urinary retention and ESBL UTI on Macrobid Conferred with RN Reviewed therapy notes Appreciate Dr Mcfarland Review of Systems General: Fatigue Neurological: Weakness, Numbness, Incoordination Objective Exam Vital Signs Vital Signs Date Time Temp Pulse Resp B/P (MAP) Pulse Ox O2 Delivery O2 Flow Rate FiO2 10/16/18 17:44 98.1 84 18 162/78 (106) 96 Room Air Capillary Refill : General Appearance: No Apparent Distress, WD/WN, Chronically ill, Thin HEENT: PERRL/EOMI, Normal ENT Inspection, Pharynx Normal, Moist Mucous Membranes Neck: Full Range of Motion, Normal Inspection, Non Tender, Supple Respiratory: Chest Non Tender, Lungs Clear, Normal Breath Sounds, No Accessory Muscle Use, No Respiratory Distress Cardiovascular: Regular Rate, Rhythm, No Edema, Systolic Murmur Gastrointestinal: Normal Bowel Sounds, No Organomegaly, No Pulsatile Mass, Non Tender, Soft Back: Normal Inspection, No CVA Tenderness, No Vertebral Tenderness Extremity: Normal Capillary Refill, Normal Inspection, Normal Range of Motion, Non Tender, No Calf Tenderness, No Pedal Edema Neurologic/Psychiatric: Alert, Oriented x3, No Motor/Sensory Deficits ( generalized weakness all extremities), signal operator II-XII Norm as Tested, Depressed Affect Skin: Warm/Dry Lymphatic: No Adenopathy Results/Procedures Lab Patient resulted labs reviewed. FIM Transfers Therapy Code Descriptions/Definitions Functional [place]key Measure: 0=Not Assessed/NA 4=Minimal Assistance 1=Total Assistance 5=Supervision or Setup 2=Maximal Assistance 6=Modified [place]key 3=Moderate Assistance 7=Complete [place]key Therapy Quality Codes: 6 Independent with activity with or without an assistive device 5 Patient requires set up or clean up by helper. Patient completes activity by themselves 4 Supervision or touching assist (CGA). [place] provide cues , steadying assist 3 The helper provides less than half the effort to complete the activity 2 The helper provides more than half the effort to complete the activity 1 Dependent. The helper does all the effort to complete an activity 7 Patient refused to complete or attempt activity 9 The patient did not perform the activity before the current illness or injury 88 Not attempted due to Medical conditions or safety concerns Mental Status/Objective Comprehension: 7 Expression: 7 Social Interaction: 7 Problem Solvin Memory: 7 ADL-Treatment Feedin (Set up) Eating (QC): 5 Groomin (Set up in chair to brush hair. Pt. brushed teeth in shower.) Oral Hygiene (QC): 4 Bathin (SBA in shower to wash all parts. Pt. able to lean side to side to wash ping area.) Shower/Bathe Self (QC): 4 Upper Extremity Dressin Upper Body Dressing (QC): 4 Lower Extremity Dressin (Pt. requires assistance in stance for balance to pull up pants and underwear. 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 Acute on chronic depression ESBL UTI Somatic complaints Mood disorder Plan: IRF protocols Home meds Nausea meds Pain meds Dr Greco appreciated Self caths and bladder scan prn daily per Dr Greco orders if she complies BM regimen to be maintained since bowels are now moving well overall on schedule Appreciate Dr Mcfarland and Dr Greco and Dr Sahu and Dr Martinez Monitor labs Anticoagulation once no longer a risk for bleeding Nausea and depression addressed by PCP and much improved some days then other days not so much ESBL UTI with Macrobid Sleep study per Dr Cheng May need NH placement so will reach out to PCP to see if she can help motivate or consult behavioral health (1) Myopathy (2) Atrial fibrillation with rapid ventricular response (3) Palpitations (4) Nausea (5) Headache (6) Atrial fibrillation (7) Iron deficiency (8) Fever (9) Urinary retention (10) Anemia (11) Depression (12) Dyspnea (13) Edema (14) Cardiac murmur (15) GERD (gastroesophageal reflux disease) (16) Cancer of spinal column (17) Debility (18) Late eff nerv injury trnk NEC (19) Leg weakness (20) Anticoagulant long-term use (21) Atrial fibrillation with rapid ventricular response (22) Transfusion of blood during current hospitalization (23) Self-catheterizes urinary bladder (24) Bacteremia due to Streptococcus (25) Fever (26) UTI (urinary tract infection) (27) UTI due to extended-spectrum beta lactamase (ESBL) producing Escherichia coli (28) Somatization disorder YURI MARSHALL DO October 16, 2018 08:36
--- NOTE | 2018-10-16 08:53 | Physical Therapy Daily Note ---
PT Daily Note-Current Subjective Pt. in bed this morning and states that she doesnt feel like she can do bed exercises "it makes me worse" . Long discussion with pt. with Dr Parker present that she might be a better candidate for skilled. Pt. states she is frustrated with her situation Pain Numeric Pain Scale: 4 Location: Medial Location Body Site: Back Pain Description: Ache Mental Status Patient Orientation: Person, Place, Time pt. does not give consistent info, has consistent difficulty following commands Transfers Therapy Code Descriptions/Definitions Functional [place] Measure: 0=Not Assessed/NA 4=Minimal Assistance 1=Total Assistance 5=Supervision or Setup 2=Maximal Assistance 6=Modified [place] 3=Moderate Assistance 7=Complete [place] Therapy Quality Codes: 6 Independent with activity with or without an assistive device 5 Patient requires set up or clean up by helper. Patient completes activity by themselves 4 Supervision or touching assist (CGA). [place] provide cues , steadying assist 3 The helper provides less than half the effort to complete the activity 2 The helper provides more than half the effort to complete the activity 1 Dependent. The helper does all the effort to complete an activity 7 Patient refused to complete or attempt activity 9 The patient did not perform the activity before the current illness or injury 88 Not attempted due to Medical conditions or safety concerns Transfers (B, C, W/C) (FIM): 3 Scootin Rollin Supine to/from Sit: 6 Sit to/from Stand: 3 Bed to/from Chair: 3 much work concentrated on SPTs toward right side. as well as w/c mobility Weight Bearing Right Lower Extremity: Right Full Weight Bearing Left Lower Extremity: Left Full Weight Bearing Gait Training pt. did not exhibit enough stance stability to warrant gait trials, left leg melting etc Exercises pt. declines exercise stating it makes her worse Assessment Current Status: Regressing pt. may be better candidate for skilled. 3 hrs seems to fatigue and frustrate her. 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 or the evolving issue of her spinal condition is the root of her decline PT Short Term Goals Short Term Goals Time Frame: October 14, 2018 Transfers (B,C,W/C) (FIM): 5 Gait (FIM): 2 Distance (FIM): 4=758-11 ft Gait Assistive Device: FWW Wheelchair Distance: 100' PT Shelter Goals Shelter Goals PT Shelter Goals Time Frame: October 25, 2018 Transfers (B,C,W/C) (FIM): 7 Sit to Lying (QC): 6 Lying-Sitting on Side/Bed(QC): 6 Sit to Stand (QC): 6 Rollin Roll Left to Right (QC): 6 Chair/[id number] Xfer(QC): 6 Car Transfer (QC): 6 Does the Patient Walk: Yes Gait (FIM): 6 Gait distance (FIM): 3=150 ft Walk 10 feet (QC): 6 Walk 10ft-Uneven Surface(QC): 5 Walk 50ft with 2 Turns (QC): 6 Walk 150 ft (QC): 6 Gait Assistive Device: FWW Does the Pt use WC or Scooter?: No Stairs (FIM): 2 # of Steps: 1 1 Step (curb) (QC): 6 4 Steps (QC): 88 12 Steps (QC): 88 Picking up an Object (QC): 88 PT Plan Treatment/Plan Treatment Plan: Continue Plan of Care Treatment Plan: Bed Mobility, Education, Functional Activity Rafia, Functional Strength, Group Therapy, Gait, Safety, Therapeutic Exercise, Transfers Treatment Duration: October 25, 2018 Frequency: At least 5 of 7 days/Wk (IRF) Estimated Hrs Per Day: 1.5 hours per day Patient and/or Family Agrees t: Yes Safety Risks/Education Patient Education: Transfer Techniques, Correct Positioning, W/C Management, Disease Process, Safety Issues Teaching Recipient: Patient Teaching Methods: Demonstration, Discussion Response to Teaching: Verbalize Understanding, Return Demonstration (with much repitition), Reinforcement Needed Time/GCodes Time In: 800 Time Out: 845 Total Billed Treatment Time: 45 Total Billed Treatment 1,[id number],[id number] G Codes Necessary: EYAL Ross BOARD WORKER October 16, 2018 08:53
[2018-10-16] MEDS: AMIODARONE 200 MG (CORDARONE) TAB PO SCH (09:18)
[2018-10-16] MEDS: HYDROCHLOROTHIAZIDE 25 MG (HCTZ) TAB PO SCH (09:18)
[2018-10-16] MEDS: NITROFURANTOIN 100 MG (MACROBID) CAPSULE PO SCH ×2 (09:18→20:44)
[2018-10-16] MEDS: SERTRALINE 50 MG (ZOLOFT) TABLET PO SCH ×2 (09:18→20:44)
[2018-10-16] MEDS: DOCUSATE SODIUM 100 MG (COLACE) CAP PO SCH ×2 (09:18→20:44)
[2018-10-16] MEDS: VITAMIN D3 1,000 UNITS (CHOLECALCIFEROL) TABLET PO SCH (09:18)
[2018-10-16] MEDS: POLYETHYLENE GLYCOL 17 GM (MIRALAX) PACK PO SCH ×2 (09:19→17:29)
[2018-10-16 09:25] VITALS: BP 135/63
--- NOTE | 2018-10-16 10:09 | Occupational Ther Daily Note ---
OT Current Status-Daily Note Mental Status/Objective Therapy Code Descriptions/Definitions Functional [place] Measure: 0=Not Assessed/NA 4=Minimal Assistance 1=Total Assistance 5=Supervision or Setup 2=Maximal Assistance 6=Modified [place] 3=Moderate Assistance 7=Complete [place] ADL-Treatment Therapy Code Descriptions/Definitions Functional [place] Measure: 0=Not Assessed/NA 4=Minimal Assistance 1=Total Assistance 5=Supervision or Setup 2=Maximal Assistance 6=Modified [place] 3=Moderate Assistance 7=Complete [place] Therapy Quality Codes: 6 Independent with activity with or without an assistive device 5 Patient requires set up or clean up by helper. Patient completes activity by themselves 4 Supervision or touching assist (CGA). [place] provide cues , steadying assist 3 The helper provides less than half the effort to complete the activity 2 The helper provides more than half the effort to complete the activity 1 Dependent. The helper does all the effort to complete an activity 7 Patient refused to complete or attempt activity 9 The patient did not perform the activity before the current illness or injury 88 Not attempted due to Medical conditions or safety concerns OT Short Term Goals Short Term Goals Time Frame: October 21, 2018 Eating(FIM): 5 Grooming(FIM): 5 Bathing(FIM): 5 Upper Body Dressing(FIM): 5 Lower Body Dressing(FIM): 5 Toileting(FIM): 5 Transfers (B,C,W/C) (FIM): 5 Toilet/Commode Transfer(FIM): 5 Shower Transfer(FIM): 4 Additional Short Term Goals: 1-Demonstrate ADL Tasks, 2-Verbalize Understanding , 3-ImproveStrength/Rafia 1=Demonstrate adherence to instructed precautions during ADL tasks. 2=Patient will verbalize/demonstrate understanding of assistive devices/ modifications for ADL. 3=Patient will improve strength/tolerance for activity to enable patient to perform ADL's. OT Care Home Goals Investigator Vice Goals Time Frame: November 04, 2018 Eating (FIM): 6 Eating (QC): 6 Groomin Oral Hygiene (QC): 6 Bathing(FIM): 5 Shower/Bathe Self (QC): 5 Upper Body Dressing(FIM): 6 Upper Body Dressing (QC): 6 Lower Body Dressing(FIM): 6 Lower Body Dressing (QC): 6 On/Off Footwear (QC): 6 Toileting(FIM): 6 Toileting Hygiene (QC): 6 Transfers (B,C,W/C) (FIM): 6 Toilet/Commode Transfer(FIM): 6 Toilet/Commode Transfer (QC): 6 Shower Transfer(FIM): 5 Additional Goals: 1-Demonstrate ADL Tasks, 2-Verbalize Understanding, 3- ImproveStrength/Rafia 1=Demonstrate adherence to instructed precautions during ADL tasks. 2=Patient will verbalize/demonstrate understanding of assistive devices/ modifications for ADL. 3=Patient will improve strength/tolerance for activity to enable patient to perform ADL's. OT Education/Plan Treatment Plan/Plan of Care Patient would benefit from OT for education, treatment and training to promote independence in ADL's, mobility, safety and/or upper extremity function for ADL' s. Plan of Care: ADL Retraining, Functional Mobility, Group Exercise/Act as Ind, UE Funct Exercise/Act Treatment Duration: November 04, 2018 Frequency: At least 5 of 7 days/Wk (IRF) Estimated Hrs Per Day: 1.5 hours per day Agreement: Yes Rehab Potential: MAXIMINO Webb October 16, 2018 10:09
--- NOTE | 2018-10-16 10:12 | Pulmonary Progress Note ---
Subjective Time Seen by a Provider: 11:46 Subjective/Events-last exam No complications noted. Sepsis Event Evaluation Height, Weight, BMI Height: 5'5.00" Weight: 162lbs. 1.6oz. [id number]; 29.0 BMI Method:Stated Exam Exam Vital Signs Date Time Temp Pulse Resp B/P (MAP) Pulse Ox O2 Delivery O2 Flow Rate FiO2 10/16/18 09:25 76 135/63 (87) 10/16/18 05:02 98.0 67 18 126/71 (89) 95 Room Air 10/15/18 21:00 Room Air 10/15/18 17:44 98.4 98 18 172/81 (111) 94 Room Air I & O 10/16/18 07:00 Intake Total 700 ml Output Total 350 ml Balance 350 ml Height & Weight Height: 5'5.00" Weight: 162lbs. 1.6oz. [id number]; 29.0 BMI Method:Stated General Appearance: No Apparent Distress, WD/WN, Chronically ill, Thin HEENT: PERRL/EOMI, Normal ENT Inspection, Pharynx Normal, Moist Mucous Membranes Neck: Full Range of Motion, Normal Inspection, Non Tender, Supple Respiratory: Chest Non Tender, Lungs Clear, Normal Breath Sounds, No Accessory Muscle Use, No Respiratory Distress Cardiovascular: Regular Rate, Rhythm, No Edema, Systolic Murmur Gastrointestinal: normal bowel sounds, non tender, soft Extremity: Normal Capillary Refill, Normal Inspection, Normal Range of Motion, Non Tender, No Calf Tenderness, No Pedal Edema Neurologic/Psychiatric: Alert, Oriented x3, No Motor/Sensory Deficits ( generalized weakness all extremities), Normal Mood/Affect, 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 Martinez is following and is planning EP study with atrial flutter ablation as an outpatient -Amiodarone SHEFALI with Snoring, EDS, nocturnal hypoxia - -PSG was done in hospital 09/22/18 -will need home CPAP. HTN Anemia s/p 2 units of PRBC Urinary rentention GERD/PUD ROSA LOPEZ DO October 16, 2018 10:12
--- NOTE | 2018-10-16 11:20 | Occupational Ther Daily Note ---
OT Current Status-Daily Note Subjective Pt alert, sitting in w/c. Pt agrees to therapy. No c/o pain. When asked how pt was doing pt stated, "Fine, but I probably won't be here very long because I am not doing a lot." Discussed with pt the different types of facility and the requirements. Pt stated that she has a hard time doing the 3 hours of therapy that is required here, but also wants to go home. Pt tearful at this time. Discussed pt's progress here and difficulties that have arisen due to medical issues. Encouraged pt to participate in therapy as much as possible and to take breaks to stay ahead of the nausea. Mental Status/Objective Patient Orientation: Person, Place, Time, Situation Therapy Code Descriptions/Definitions Functional [place] Measure: 0=Not Assessed/NA 4=Minimal Assistance 1=Total Assistance 5=Supervision or Setup 2=Maximal Assistance 6=Modified [place] 3=Moderate Assistance 7=Complete [place] ADL-Treatment Pt declines shower or sponge bath. Pt does want to complete grooming, use restroom and change clothing. Pt maneuvered w/c into bathroom and to sink to complete own grooming, (hair, face, hands and teeth) Pt then requested to use bathroom. With min A in SPT pt able to complete using grabbars, BSC and w/c. Standing with min A pt able to manipulate pants. Pt undressed and dressed on toilet, only assist needed was in standing while pt hiked pants over hips. Mod A for w/c to EOB then pt able to position self in bed with supervision with recovery break. Pt took increased time due to multiple recovery breaks. Therapy Code Descriptions/Definitions Functional [place] Measure: 0=Not Assessed/NA 4=Minimal Assistance 1=Total Assistance 5=Supervision or Setup 2=Maximal Assistance 6=Modified [place] 3=Moderate Assistance 7=Complete [place] Therapy Quality Codes: 6 Independent with activity with or without an assistive device 5 Patient requires set up or clean up by helper. Patient completes activity by themselves 4 Supervision or touching assist (CGA). [place] provide cues , steadying assist 3 The helper provides less than half the effort to complete the activity 2 The helper provides more than half the effort to complete the activity 1 Dependent. The helper does all the effort to complete an activity 7 Patient refused to complete or attempt activity 9 The patient did not perform the activity before the current illness or injury 88 Not attempted due to Medical conditions or safety concerns Grooming (FIM): 6 Oral Hygiene (QC): 6 Upper Body (FIM): 5 Upper Body Dressing (QC): 5 Lower Body Dressing (FIM): 4 Lower Body Dressing (QC): 3 On/Off Footwear (QC): 5 Toileting (FIM): 4 Toileting Hygiene (QC): 3 Transfers (B, C, W/C) (FIM): 4 Toilet/Commode Transfer (FIM): 4 Toilet Transfer (QC): 3 Other Treatment Pt worked on w/c mobility to increase independence and UE strengthening. Pt required assist due to activity tolerance and UE strength. After therapy, pt lying in bed with call light/phone in reach. All needs met in room. OT Short Term Goals Short Term Goals Time Frame: October 21, 2018 Eating(FIM): 5 Grooming(FIM): 5 Bathing(FIM): 5 Upper Body Dressing(FIM): 5 Lower Body Dressing(FIM): 5 Toileting(FIM): 5 Transfers (B,C,W/C) (FIM): 5 Toilet/Commode Transfer(FIM): 5 Shower Transfer(FIM): 4 Additional Short Term Goals: 1-Demonstrate ADL Tasks, 2-Verbalize Understanding , 3-ImproveStrength/Rafia 1=Demonstrate adherence to instructed precautions during ADL tasks. 2=Patient will verbalize/demonstrate understanding of assistive devices/ modifications for ADL. 3=Patient will improve strength/tolerance for activity to enable patient to perform ADL's. OT Senior Living Goals Senior Living Goals Time Frame: November 04, 2018 Eating (FIM): 6 Eating (QC): 6 Groomin Oral Hygiene (QC): 6 Bathing(FIM): 5 Shower/Bathe Self (QC): 5 Upper Body Dressing(FIM): 6 Upper Body Dressing (QC): 6 Lower Body Dressing(FIM): 6 Lower Body Dressing (QC): 6 On/Off Footwear (QC): 6 Toileting(FIM): 6 Toileting Hygiene (QC): 6 Transfers (B,C,W/C) (FIM): 6 Toilet/Commode Transfer(FIM): 6 Toilet/Commode Transfer (QC): 6 Shower Transfer(FIM): 5 Additional Goals: 1-Demonstrate ADL Tasks, 2-Verbalize Understanding, 3- ImproveStrength/Rafia 1=Demonstrate adherence to instructed precautions during ADL tasks. 2=Patient will verbalize/demonstrate understanding of assistive devices/ modifications for ADL. 3=Patient will improve strength/tolerance for activity to enable patient to perform ADL's. OT Education/Plan Problem List/Assessment Assessment: Decreased Activ Tolerance, Decreased UE Strength, Impaired Coordination, Impaired Funct Balance, Impaired I ADL's, Impaired Self-Care Skills Discharge Recommendations Plan/Recommendations: Continue POC Treatment Plan/Plan of Care Patient would benefit from OT for education, treatment and training to promote independence in ADL's, mobility, safety and/or upper extremity function for ADL' s. Plan of Care: ADL Retraining, Functional Mobility, Group Exercise/Act as Ind, UE Funct Exercise/Act Treatment Duration: November 04, 2018 Frequency: At least 5 of 7 days/Wk (IRF) Estimated Hrs Per Day: 1.5 hours per day Agreement: Yes Rehab Potential: Fair Time/GCodes Start Time: 09:45 Stop Time: 11:15 Total Time Billed (hr/min): 90 Billed Treatment Time 1 visit-ADL 5 (70 min) EX 1 (20 min) MAXIMINO FERGUSON October 16, 2018 11:20
--- NOTE | 2018-10-16 11:41 | NUR ---
Post void bladder scan 119mls.
--- NOTE | 2018-10-16 13:17 | Physical Therapy Daily Note ---
PT Daily Note-Current Subjective Pt. agreed to rx but states she still feels unsure she can TRF and walk. Feels that therapy makes her weaker and causes her more pain in her back and neck Pain Numeric Pain Scale: 3 Location: Left Location Body Site: Knee Pain Description: Ache Mental Status Patient Orientation: Person, Place, Time, Situation Transfers Therapy Code Descriptions/Definitions Functional [place] Measure: 0=Not Assessed/NA 4=Minimal Assistance 1=Total Assistance 5=Supervision or Setup 2=Maximal Assistance 6=Modified [place] 3=Moderate Assistance 7=Complete [place] Therapy Quality Codes: 6 Independent with activity with or without an assistive device 5 Patient requires set up or clean up by helper. Patient completes activity by themselves 4 Supervision or touching assist (CGA). [place] provide cues , steadying assist 3 The helper provides less than half the effort to complete the activity 2 The helper provides more than half the effort to complete the activity 1 Dependent. The helper does all the effort to complete an activity 7 Patient refused to complete or attempt activity 9 The patient did not perform the activity before the current illness or injury 88 Not attempted due to Medical conditions or safety concerns Transfers (B, C, W/C) (FIM): 4 Scootin Rollin Supine to/from Sit: 5 Sit to/from Stand: 4 Bed to/from Chair: 4 Weight Bearing Right Lower Extremity: Right Full Weight Bearing Left Lower Extremity: Left Full Weight Bearing Gait Training Does the Patient Walk?: Yes Gait (FIM): 1 Distance (FIM): 1=up to 49 ft (25ft, 12ft, 15ft) Gait Level of Assist: 4 Gait Persons Needed: 1 Gait Assistive Device: FWW extreme valgum with knee over knee each step. w/c right behind pt. each step as she is slow and appears to be exerting much effort Wheelchair Training Does the Pt Use a Wheelchair?: Yes Wheelchair (FIM): 2 Wheelchair Distance: 4=629-55 ft (125ft, 100ft) Wheelchair Level of Assist: 4 Type of Wheelchair: Manual pt. needs repeated instruction to manage w/c for turns, backing and maneuvering Exercises Seated Therapy Exercises: Ankle pumps, Sit to stand, Long arc quads, Hip flexion, Hip abd/add Seated Reps: 15 Treatments toileting with mod assist for clothing up down. pt. cleans self, uses rail on wall in bthrm Assessment Current Status: Good Progress pt. did ambulate this afternoon and had more stability than recent days with this PAN HELPER. PT Short Term Goals Short Term Goals Time Frame: October 14, 2018 Transfers (B,C,W/C) (FIM): 5 Gait (FIM): 2 Distance (FIM): 8=844-90 ft Gait Assistive Device: FWW Wheelchair Distance: 100' PT Custodial Goals Custodial Goals PT Custodial Goals Time Frame: October 25, 2018 Transfers (B,C,W/C) (FIM): 7 Sit to Lying (QC): 6 Lying-Sitting on Side/Bed(QC): 6 Sit to Stand (QC): 6 Rollin Roll Left to Right (QC): 6 Chair/Uxs-pf-[place] Xfer(QC): 6 Car Transfer (QC): 6 Does the Patient Walk: Yes Gait (FIM): 6 Gait distance (FIM): 3=150 ft Walk 10 feet (QC): 6 Walk 10ft-Uneven Surface(QC): 5 Walk 50ft with 2 Turns (QC): 6 Walk 150 ft (QC): 6 Gait Assistive Device: FWW Does the Pt use WC or Scooter?: No Stairs (FIM): 2 # of Steps: 1 1 Step (curb) (QC): 6 4 Steps (QC): 88 12 Steps (QC): 88 Picking up an Object (QC): 88 PT Plan Treatment/Plan Treatment Plan: Continue Plan of Care Treatment Plan: Bed Mobility, Education, Functional Activity [place]ia, Functional Strength, Group Therapy, Gait, Safety, Therapeutic Exercise, Transfers Treatment Duration: October 25, 2018 Frequency: At least 5 of 7 days/Wk (IRF) Estimated Hrs Per Day: 1.5 hours per day Patient and/or Family Agrees t: Yes Safety Risks/Education Patient Education: Gait Training, Transfer Techniques, Correct Positioning, W/ C Management, Disease Process, Safety Issues Teaching Recipient: Patient Teaching Methods: Demonstration, Discussion Response to Teaching: Verbalize Understanding, Return Demonstration, Reinforcement Needed Time/GCodes Time In: 800 (130) Time Out: 845 (1315) Total Billed Treatment Time: 90 Total Billed Treatment 1,FA45m,WC25m,GT20m G Codes Necessary: EYAL Ross PAN HELPER October 16, 2018 13:17
--- NOTE | 2018-10-16 15:36 | Cardiology Progress Note ---
Subjective Date Seen by Provider: October 16, 2018 Time Seen by Provider: 15:36 Subjective/Events-last exam patient is laying down in bed, feeling better. No new complaint Review of Systems General: No Chills, No Night Sweats; Fatigue; No Malaise, No Appetite, No Other HEENT: No Head Aches, No Visual Changes, No Eye Pain, No Ear Pain, No Dysphasia , No Sinus Congestion, No Post Nasal Drip, No Sore Throat, No Other Pulmonary: No Dyspnea, No Cough, No Pleuritic Chest Pain, No Other Cardiovascular: No: Chest Pain, Palpitations, Orthopnea, Paroxysmal Noc. Dyspnea, Edema, Lt Headedness, Other Objective-Cardiology Exam Last Set of Vital Signs Vital Signs 10/16/18 10/16/18 10/16/18 05:02 09:25 10:38 Temp 98.0 Pulse 76 Resp 18 B/P (MAP) 135/63 (87) Pulse Ox 95 O2 Delivery Room Air Capillary Refill : I&O Intake and Output 10/16/18 00:00 Intake Total 750 ml Output Total 600 ml Balance 150 ml Intake Oral 750 ml Output Urine Total 600 ml Bladder Scan Volume Amount 258 ml # Urine Diapers 4 General: Alert, Oriented X3, Cooperative HEENT: Atraumatic, PERRLA Neck: Supple, No JVD, No Thyromegaly Lungs: Clear to Auscultation, Normal Air Movement Heart: Regular Rate, Normal S1, Normal S2, Other (SM at LSB) Abdomen: Normal Bowel Sounds, Soft, No Tenderness, No Hepatosplenomegaly, No Masses Extremities: No Clubbing, No Cyanosis, No Edema, Normal Pulses, No Tenderness/ Swelling Skin: No Rashes, No Breakdown, No Significant Lesion Neuro: Normal Gait, Normal Speech, Strength at 5/5 X4 Ext, Normal Tone, Sensation Intact Psych/Mental Status: Mental Status NL, Mood NL A/P-Cardiology Admission Diagnosis Strep bacteremia Atrial fibrillation/flutter Anemia Generalized debility Assessment/Plan Status post Streptococcus bacteremia, fever and chills and generalized weakness , started on Rocephin and vancomycin, managed by primary care physician, TITUS done 09/23/18 revealed mild with no vegetation to valves, received Rocephin for 11 days last dose on 10/04, received 4 days of Vanco. Better at this time, continue to monitor ESBL UTI- on antibiotic, management per PCP Hypertension, controlled, continue to monitor. Generalized debility/weakness- continue PT Paroxysmal atrial fibrillation/flutter, currently back in sinus rhythm, maintained on Amiodarone. Dr. Martinez following, ablation procedure was postponed. Continue to monitor rhythm Anemia, has been on iron supplement, s/p blood transfusion. Currently off all OAC. EGD/colonoscopy done revealed no active bleeding, continue to monitor H&H History of chronic anticoagulation, had GI bleed on Pradaxa, intolerant to Coumadin. Xarelto was discontinued secondary to worsening anemia History of multiple episodes of GI bleed. Had workup done by Dr. Alberts and she was restarted on Xarelto, stopped for now and monitor H&H, reportedly had AVM as a source of the intermittent GI bleed Questionable underlying sleep apnea, Dr. Cheng following. Status post iron transfusion with questionable allergic reaction, had similar reaction to different iron product with generalized weakness and generalized body ache, has been managed by Dr. Nicholas History of abnormal baseline EKG with first-degree AV block and right bundle branch block, right ventricular hypertrophy pattern. History of syncope while on atenolol was unable to tolerate the medication in the past. History of pancreatic nodule, had workup with Dr. Alberts Family history of CVA Clinical Quality Measures DVT/VTE Risk/Contraindication: Risk Factor Score Per Nursin RFS Level Per Nursing on Admit: 2=Moderate DAMON CLAUDIO MD October 16, 2018 15:36
--- NOTE | 2018-10-16 16:00 | NUR ---
FLORIST MANAGER met with patient and daughter to review team conference summary. During team conference, therapy expressed concerns with patient's progress as it appears to wax and wane, they also expressed concerns with patient's ability to tolerate duration and intensity therapy and patient's level of motivation. Due to complex clinical course and continued prevalence of infection sources, patient has regressed N therapy progress. Patient also is limited with activity due to constant nausea resulting in poor nutritional intake, complexity with BM's, newly developed tremors and continuous body temperature fluctuation. While addressing these concerns with patient and daughter, patient does believe that the current level of therapy is to challenging for her at this time. Dr. Parker has requested PCP, Dr. PERDOMO to address any further clinical intervention needed prior to proceeding with a discharge plan. As patient is not tolerating therapies and not making appropriate progress, Team has recommended re-evaluating progress on 10/21 and if no changes have occurred, Team is recommending SNF placement. Patient and daughter are agreeable to this plan, patient expresses desire to admit to [facility] if SNIF is required. FLORIST MANAGER will reach out to the [facility] to inquire about bed availability in preparation of discharge for early next week. FLORIST MANAGER will continue to follow.
[2018-10-16] MEDS: TAMSULOSIN 0.4 MG (FLOMAX) CAP PO SCH (17:24)
--- NOTE | 2018-10-16 17:29 | NUR ---
Patient agrees to take Miralax. 2100 dose given at this time.
[2018-10-16 17:44] VITALS: BP 162/78
--- NOTE | 2018-10-16 17:50 | NUR ---
Call to Dr. Sahu to notify of overall functional decline... progressively weak, continued nausea, occasional memory deficits. C/O being "cold and then hot". Skin is clammy. Slight tremor in bilateral hands. VSS. T 98.1, P 84, R 18, O2 96% on room air, BP 162/78. Orders to DC Reglan and switch Protonix to IV. Dr. Sahu states that she will order labs for AM.
[2018-10-16] MEDS: DILTIAZEM 240 MG (CARDIZEM CD) CAP PO SCH (20:44)
[2018-10-16] MEDS: LOSARTAN 100 MG (COZAAR) TABLET PO SCH (20:44)
[2018-10-16] MEDS: PANTOPRAZOLE 40 MG (PROTONIX) VIAL IV SCH (20:45)
[2018-10-17] MEDS: BETHANECHOL 25 MG (URECHOLINE) TAB PO SCH ×4 (05:43→21:46)
[2018-10-17] MEDS: PANTOPRAZOLE 40 MG (PROTONIX) VIAL IV SCH ×2 (05:43→21:45)
[2018-10-17] MEDS: CATHETER FLUSH 10 ML SYR IV SCH ×3 (05:44→21:46)
[2018-10-17] MEDS: ONDANSETRON 4 MG/2 ML (SDV) Z0FRAN IVP PRN (05:54)
[2018-10-17 06:14] VITALS: BP 146/76
[2018-10-17 06:55] LABS: BASOPHILS % (AUTO) 0 % (0-10); EOSINOPHILS # (AUTO) 0.2 10^3/uL (0.0-0.3); EOSINOPHILS % (AUTO) 3 % (0-10); HEMATOCRIT 38 % (35-52); HEMOGLOBIN 11.4 G/DL (11.5-16.0); LYMPHOCYTES # (AUTO) 1.1 X 10^3 (1.0-4.0); LYMPHOCYTES % (AUTO) 18 % (12-44); MEAN CORPUSCULAR HEMOGLOBIN 27 PG (25-34); MEAN CORPUSCULAR HGB CONC 30 G/DL (32-36); MEAN CORPUSCULAR VOLUME 87 FL (80-99); MEAN PLATELET VOLUME 10.1 FL (7.4-10.4); MONOCYTES # (AUTO) 0.7 X 10^3 (0.0-1.0); MONOCYTES % (AUTO) 11 % (0-12); NEUTROPHILS # (AUTO) 4.4 X 10^3 (1.8-7.8); NEUTROPHILS % (AUTO) 69 % (42-75); PLATELET COUNT 307 10^3/uL (130-400); RED CELL DISTRIBUTION WIDTH 21.4 % (10.0-14.5); WHITE BLOOD COUNT 6.5 10^3/uL (4.3-11.0)
[2018-10-17 07:16] LABS: ALBUMIN 3.7 GM/DL (3.2-4.5); BILIRUBIN,TOTAL 0.6 MG/DL (0.1-1.0); CREATININE SERUM 0.94 MG/DL (0.60-1.30); POTASSIUM 3.4 MMOL/L (3.6-5.0); TOTAL PROTEIN 8.2 GM/DL (6.4-8.2)
--- NOTE | 2018-10-17 08:54 | PM&R Progress Note ---
Subjective HPI/CC On Admission Date Seen by Provider: October 17, 2018 Time Seen by Provider: 08:15 Chief complaint: Myopathy with debility. HPI: This is a 68[address] 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 Pt has also had some urinary retention, Dr. Greco has been consulted and recommended self caths once a day with bladder scanning as needed and due to all of the 14 days of hospital stay she has become very debilitated and prior level of functioning was independent with use of a cane and now she can only take a few steps to go to the toilet. She did have a low grade fever today, sepsis workup with laboratory was ordered by Dr. Mcfarland to assess for any type of sepsis but we will continue the workup with Dr. Sahu's help along with Dr. Mcfarland, Dr. Cheng and Dr. Greco while she is on the inpatient rehab unit prior to discharge home to live independently. Subjective/Events-last exam Daughter is at the bedside today PCP Dr. Sahu will reach out to the pt to evaluate the need of a behavioral consult. Pt agrees for [facility] placement Bowel movement last was on the so will initiate regimen for that. Conferred with RN Reviewed therapy notes Appreciate Dr Mcfarland Review of Systems General: Fatigue Neurological: Weakness, Numbness, Incoordination Objective Exam Vital Signs Vital Signs Date Time Temp Pulse Resp B/P (MAP) Pulse Ox O2 Delivery O2 Flow Rate FiO2 10/17/18 20:00 Room Air 10/17/18 16:28 97.4 89 18 160/83 (108) 97 Capillary Refill : General Appearance: No Apparent Distress, WD/WN, Chronically ill, Thin HEENT: PERRL/EOMI, Normal ENT Inspection, Pharynx Normal, Moist Mucous Membranes Neck: Full Range of Motion, Normal Inspection, Non Tender, Supple Respiratory: Chest Non Tender, Lungs Clear, Normal Breath Sounds, No Accessory Muscle Use, No Respiratory Distress Cardiovascular: Regular Rate, Rhythm, No Edema, Systolic Murmur Gastrointestinal: Normal Bowel Sounds, No Organomegaly, No Pulsatile Mass, Non Tender, Soft Back: Normal Inspection, No CVA Tenderness, No Vertebral Tenderness Extremity: Normal Capillary Refill, Normal Inspection, Normal Range of Motion, Non Tender, No Calf Tenderness, No Pedal Edema Neurologic/Psychiatric: Alert, Oriented x3, No Motor/Sensory Deficits ( generalized weakness all extremities), criminal attorney II-XII Norm as Tested, Depressed Affect Skin: Warm/Dry Lymphatic: No Adenopathy Results/Procedures Lab Laboratory Tests 10/17/18 05:28 Patient resulted labs reviewed. FIM Transfers Therapy Code Descriptions/Definitions Functional [place] Measure: 0=Not Assessed/NA 4=Minimal Assistance 1=Total Assistance 5=Supervision or Setup 2=Maximal Assistance 6=Modified [place] 3=Moderate Assistance 7=Complete [place] Therapy Quality Codes: 6 Independent with activity with or without an assistive device 5 Patient requires set up or clean up by helper. Patient completes activity by themselves 4 Supervision or touching assist (CGA). [place] provide cues , steadying assist 3 The helper provides less than half the effort to complete the activity 2 The helper provides more than half the effort to complete the activity 1 Dependent. The helper does all the effort to complete an activity 7 Patient refused to complete or attempt activity 9 The patient did not perform the activity before the current illness or injury 88 Not attempted due to Medical conditions or safety concerns Mental Status/Objective Comprehension: 7 Expression: 7 Social Interaction: 7 Problem Solvin Memory: 7 ADL-Treatment Feedin (Set up) Eating (QC): 5 Groomin Oral Hygiene (QC): 6 Bathin (SBA in shower to wash all parts. Pt. 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 Acute on chronic depression ESBL UTI Somatic complaints Mood disorder Plan: IRF protocols Home meds maintained Nausea meds will continue Pain meds Ultram scheduled per PCP Dr Greco appreciated Self caths and bladder scan prn daily per Dr Greco orders if she complies BM regimen to be maintained since bowels are now moving well overall on schedule Appreciate Dr Mcfarland and Dr Greco and Dr Sahu and Dr Martinez Monitor labs Anticoagulation once no longer a risk for bleeding Nausea and depression addressed by PCP and much improved some days then other days not so much ESBL UTI with Macrobid to be completed Sleep study per Dr Cheng May need NH placement so will reach out to PCP to see if she can help motivate or consult behavioral health (1) Myopathy (2) Atrial fibrillation with rapid ventricular response (3) Palpitations (4) Nausea (5) Headache (6) Atrial fibrillation (7) Iron deficiency (8) Fever (9) Urinary retention (10) Anemia (11) Depression (12) Dyspnea (13) Edema (14) Cardiac murmur (15) GERD (gastroesophageal reflux disease) (16) Cancer of spinal column (17) Debility (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
[2018-10-17] MEDS: VITAMIN D3 1,000 UNITS (CHOLECALCIFEROL) TABLET PO SCH (10:40)
[2018-10-17] MEDS: NITROFURANTOIN 100 MG (MACROBID) CAPSULE PO SCH ×2 (10:40→21:45)
[2018-10-17] MEDS: SERTRALINE 50 MG (ZOLOFT) TABLET PO SCH ×2 (10:41→21:46)
[2018-10-17] MEDS: HYDROCHLOROTHIAZIDE 25 MG (HCTZ) TAB PO SCH (10:41)
[2018-10-17] MEDS: DOCUSATE SODIUM 100 MG (COLACE) CAP PO SCH ×2 (10:59→19:22)
[2018-10-17] MEDS: POLYETHYLENE GLYCOL 17 GM (MIRALAX) PACK PO SCH ×2 (11:00→19:21)
--- NOTE | 2018-10-17 11:55 | Occupational Ther Daily Note ---
OT Current Status-Daily Note Subjective Pt alert, lying in bed. Pt agrees to therapy. No c/o pain at this time. Mental Status/Objective Patient Orientation: Person, Place, Time, Situation Therapy Code Descriptions/Definitions Functional [place] Measure: 0=Not Assessed/NA 4=Minimal Assistance 1=Total Assistance 5=Supervision or Setup 2=Maximal Assistance 6=Modified [place] 3=Moderate Assistance 7=Complete [place] Attachments: IV (midline) ADL-Treatment Pt agrees to shower. Pt takes increased time to complete any tasks due to decreased activity tolerance and taking multiple recovery breaks. Pt ambulated slowly using FWW with min A to toilet. Pt able to reach areas to cleanse though inefficient, assist to keep clean. CGA in standing when pt manipulated clothing. Pt requires verbal cues for correct hand placement during transfers. Pt continually had loose bowel movement throughout toileting, shower and dressing. Pt able to complete bathing using shower bench, grabbar, hand held shower and long handle sponge. Assist to thoroughly cleanse buttocks. Pt has demonstrated ability to complete lower body dressing though due to constant bowel movement and increased fatigue assist to complete dressing was required. Assist x2 due to pt's fatigue at end of treatment to cleanse buttocks, manipulate clothing and transfer from BSC to w/c. CGA when transferring from w/ c to bed, assist with LE's to get into bed. After therapy, pt lying in bed with call light/phone in reach. Nrsg and daughter in room. All needs met. Therapy Code Descriptions/Definitions Functional [place] Measure: 0=Not Assessed/NA 4=Minimal Assistance 1=Total Assistance 5=Supervision or Setup 2=Maximal Assistance 6=Modified [place] 3=Moderate Assistance 7=Complete [place] Therapy Quality Codes: 6 Independent with activity with or without an assistive device 5 Patient requires set up or clean up by helper. Patient completes activity by themselves 4 Supervision or touching assist (CGA). Davidson provide cues , steadying assist 3 The helper provides less than half the effort to complete the activity 2 The helper provides more than half the effort to complete the activity 1 Dependent. The helper does all the effort to complete an activity 7 Patient refused to complete or attempt activity 9 The patient did not perform the activity before the current illness or injury 88 Not attempted due to Medical conditions or safety concerns Bathing (FIM): 3 Bathing Location: L Arm, R Arm, L Upper Leg, R Upper Leg, L Lower Leg ( including foot), R Lower Leg (including foot), Chest, Abdomen, Buttocks, Perineal Area Shower/Bathe Self (QC): 3 Upper Body (FIM): 5 Upper Body Dressing (QC): 5 Toileting (FIM): 2 Toileting Hygiene (QC): 2 Transfers (B, C, W/C) (FIM): 4 Shower Transfer(FIM): 4 edge worker and family are anticipating Day Pass this Sunday. Family education and training completed with daughter throughout session. OT Short Term Goals Short Term Goals Time Frame: October 21, 2018 Eating(FIM): 5 Grooming(FIM): 5 Bathing(FIM): 5 Upper Body Dressing(FIM): 5 Lower Body Dressing(FIM): 5 Toileting(FIM): 5 Transfers (B,C,W/C) (FIM): 5 Toilet/Commode Transfer(FIM): 5 Shower Transfer(FIM): 4 Additional Short Term Goals: 1-Demonstrate ADL Tasks, 2-Verbalize Understanding , 3-ImproveStrength/Rafia 1=Demonstrate adherence to instructed precautions during ADL tasks. 2=Patient will verbalize/demonstrate understanding of assistive devices/ modifications for ADL. 3=Patient will improve strength/tolerance for activity to enable patient to perform ADL's. OT Package Wrapper Goals [facility]ci Goals Time Frame: November 04, 2018 Eating (FIM): 6 Eating (QC): 6 Groomin Oral Hygiene (QC): 6 Bathing(FIM): 5 Shower/Bathe Self (QC): 5 Upper Body Dressing(FIM): 6 Upper Body Dressing (QC): 6 Lower Body Dressing(FIM): 6 Lower Body Dressing (QC): 6 On/Off Footwear (QC): 6 Toileting(FIM): 6 Toileting Hygiene (QC): 6 Transfers (B,C,W/C) (FIM): 6 Toilet/Commode Transfer(FIM): 6 Toilet/Commode Transfer (QC): 6 Shower Transfer(FIM): 5 Additional Goals: 1-Demonstrate ADL Tasks, 2-Verbalize Understanding, 3- ImproveStrength/Rafia 1=Demonstrate adherence to instructed precautions during ADL tasks. 2=Patient will verbalize/demonstrate understanding of assistive devices/ modifications for ADL. 3=Patient will improve strength/tolerance for activity to enable patient to perform ADL's. OT Education/Plan Problem List/Assessment Assessment: Decreased Activ Tolerance, Decreased UE Strength, Impaired Funct Balance, Impaired I ADL's, Impaired Self-Care Skills Discharge Recommendations Plan/Recommendations: Continue POC Treatment Plan/Plan of Care Patient would benefit from OT for education, treatment and training to promote independence in ADL's, mobility, safety and/or upper extremity function for ADL' s. Plan of Care: ADL Retraining, Functional Mobility, Group Exercise/Act as Ind, UE Funct Exercise/Act Treatment Duration: November 04, 2018 Frequency: At least 5 of 7 days/Wk (IRF) Estimated Hrs Per Day: 1.5 hours per day Agreement: Yes Rehab Potential: Fair Time/GCodes Start Time: 09:30 Stop Time: 11:00 Total Time Billed (hr/min): 90 Billed Treatment Time 1 visit-ADL 6 (90 min) MAXIMINO FERGUSON October 17, 2018 11:55
--- NOTE | 2018-10-17 12:13 | Physical Therapy Daily Note ---
PT Daily Note-Current Subjective Pt sitting up in bed upon arrival. Pt agrees to PT. SW asked for transfers to be worked on with Daughter present for possible short Home Visit for family celebration. Mental Status Patient Orientation: Person, Place, Time, Situation Transfers Therapy Code Descriptions/Definitions Functional [place] Measure: 0=Not Assessed/NA 4=Minimal Assistance 1=Total Assistance 5=Supervision or Setup 2=Maximal Assistance 6=Modified [place] 3=Moderate Assistance 7=Complete [place] Therapy Quality Codes: 6 Independent with activity with or without an assistive device 5 Patient requires set up or clean up by helper. Patient completes activity by themselves 4 Supervision or touching assist (CGA). Creole provide cues , steadying assist 3 The helper provides less than half the effort to complete the activity 2 The helper provides more than half the effort to complete the activity 1 Dependent. The helper does all the effort to complete an activity 7 Patient refused to complete or attempt activity 9 The patient did not perform the activity before the current illness or injury 88 Not attempted due to Medical conditions or safety concerns Scootin Rollin Supine to/from Sit: 4 Sit to/from Stand: 4 Sit to Lying (QC): 4 Sit to Stand (QC): 4 Weight Bearing Right Lower Extremity: Right Full Weight Bearing Left Lower Extremity: Left Full Weight Bearing Exercises Supine Ex: Ankle pumps, Quad Set, Heel Slides, Hip abd/add Supine Reps: 15 Treatments Pt works on transfers from bed to W/C and back with focus on proper hand placement and positioning. Pt needs assistance with brief change and placement of barrier cream and bandage. With Nursing assist, this is completed and pt rests. Pt then completes Supine Ex. Pt will attempt true car transfer with daughter's car tomorrow. Assessment Current Status: Good Progress Pt tolerates tx well and is making progress although not always consistently. Pt fatigues easily, especially on days that pt showers. PT Short Term Goals Short Term Goals Time Frame: October 14, 2018 Transfers (B,C,W/C) (FIM): 5 Gait (FIM): 2 Distance (FIM): 5=877-12 ft Gait Assistive Device: FWW Wheelchair Distance: 100' PT Tobacco Packing Machine Operator Goals Tobacco Packing Machine Operator Goals PT Tobacco Packing Machine Operator Goals Time Frame: October 25, 2018 Transfers (B,C,W/C) (FIM): 7 Sit to Lying (QC): 6 Lying-Sitting on Side/Bed(QC): 6 Sit to Stand (QC): 6 Rollin Roll Left to Right (QC): 6 Chair/Owu-im-[place] Xfer(QC): 6 Car Transfer (QC): 6 Does the Patient Walk: Yes Gait (FIM): 6 Gait distance (FIM): 3=150 ft Walk 10 feet (QC): 6 Walk 10ft-Uneven Surface(QC): 5 Walk 50ft with 2 Turns (QC): 6 Walk 150 ft (QC): 6 Gait Assistive Device: FWW Does the Pt use WC or Scooter?: No Stairs (FIM): 2 # of Steps: 1 1 Step (curb) (QC): 6 4 Steps (QC): 88 12 Steps (QC): 88 Picking up an Object (QC): 88 PT Plan Problem List Problem List: Activity Tolerance, Functional Strength, Balance, Gait Treatment/Plan Treatment Plan: Continue Plan of Care Treatment Plan: Bed Mobility, Education, Functional Activity Rafia, Functional Strength, Group Therapy, Gait, Safety, Therapeutic Exercise, Transfers Treatment Duration: October 25, 2018 Frequency: At least 5 of 7 days/Wk (IRF) Estimated Hrs Per Day: 1.5 hours per day Patient and/or Family Agrees t: Yes Safety Risks/Education Patient Education: Gait Training, Transfer Techniques, Correct Positioning, W/ C Management, Safety Issues Teaching Recipient: Patient, Family Teaching Methods: Demonstration, Discussion Response to Teaching: Verbalize Understanding Time/GCodes Time In: 1100 Time Out: 1200 Total Billed Treatment Time: 60 Total Billed Treatment EX x2 (30m) & FA (30m) G Codes Necessary: SINGH Jeffries PTA October 17, 2018 12:12
--- NOTE | 2018-10-17 13:34 | NUR ---
Post void bladder scan 201cc.
--- NOTE | 2018-10-17 13:34 | Cardiology Progress Note ---
Subjective Date Seen by Provider: October 17, 2018 Time Seen by Provider: 13:33 Subjective/Events-last exam patient is laying down in bed, having tremor, nausea and loss of appetite and generalized weakness Review of Systems General: No Chills, No Night Sweats, No Fatigue, No Malaise, No Appetite, No Other HEENT: No Head Aches, No Visual Changes, No Eye Pain, No Ear Pain, No Dysphasia , No Sinus Congestion, No Post Nasal Drip, No Sore Throat, No Other Pulmonary: Dyspnea; No Cough, No Pleuritic Chest Pain, No Other Cardiovascular: No: Chest Pain, Palpitations, Orthopnea, Paroxysmal Noc. Dyspnea, Edema, Lt Headedness, Other Objective-Cardiology Exam Last Set of Vital Signs Vital Signs 10/17/18 10/17/18 06:14 09:00 Temp 97.6 Pulse 78 Resp 18 B/P (MAP) 146/76 (99) Pulse Ox 96 O2 Delivery Room Air Capillary Refill : I&O Intake and Output 10/17/18 00:00 Intake Total 800 ml Output Total 250 ml Balance 550 ml Intake Oral 800 ml Output Urine Total 250 ml Bladder Scan Volume Amount 119 ml # Voids 2 # Urine Diapers 1 General: Alert, Oriented X3, Cooperative HEENT: Atraumatic, PERRLA Neck: Supple, No JVD, No Thyromegaly Lungs: Clear to Auscultation, Normal Air Movement Heart: Regular Rate, Normal S1, Normal S2, Other ( at B) Abdomen: Normal Bowel Sounds, Soft, No Tenderness, No Hepatosplenomegaly, No Masses Extremities: No Clubbing, No Cyanosis, No Edema, Normal Pulses, No Tenderness/ Swelling Skin: No Rashes, No Breakdown, No Significant Lesion Neuro: Normal Gait, Normal Speech, Strength at 5/5 X4 Ext, Normal Tone, Sensation Intact Psych/Mental Status: Mental Status NL, Mood NL Results Lab Laboratory Tests 10/17/18 05:28 A/P-Cardiology Admission Diagnosis Strep bacteremia Atrial fibrillation/flutter Anemia Generalized debility Assessment/Plan Status post Streptococcus bacteremia, fever and chills and generalized weakness , started on Rocephin and vancomycin, managed by primary care physician, TITUS done 09/23/18 revealed mild with no vegetation to valves, received Rocephin for 11 days last dose on 10/04, received 4 days of Vanco. Better at this time, continue to monitor ESBL UTI- on antibiotic, management per PCP Hypertension, controlled, continue to monitor. Generalized debility/weakness- continue PT Paroxysmal atrial fibrillation/flutter, currently back in sinus rhythm, maintained on Amiodarone. Dr. Martinez following, ablation procedure was postponed , currently having increasing nausea subsequently I stopped amiodarone, discussed with Dr. Martinez, may proceed with ablation. Anemia, has been on iron supplement, s/p blood transfusion. Currently off all OAC. EGD/colonoscopy done revealed no active bleeding, continue to monitor H&H History of chronic anticoagulation, had GI bleed on Pradaxa, intolerant to Coumadin. Xarelto was discontinued secondary to worsening anemia History of multiple episodes of GI bleed. Had workup done by Dr. Alberts and she was restarted on Xarelto, stopped for now and monitor H&H, reportedly had AVM as a source of the intermittent GI bleed Questionable underlying sleep apnea, Dr. Cheng following. Status post iron transfusion with questionable allergic reaction, had similar reaction to different iron product with generalized weakness and generalized body ache, has been managed by Dr. Nicholas History of abnormal baseline EKG with first-degree AV block and right bundle branch block, right ventricular hypertrophy pattern. History of syncope while on atenolol was unable to tolerate the medication in the past. History of pancreatic nodule, had workup with Dr. Alberts Family history of CVA Clinical Quality Measures DVT/VTE Risk/Contraindication: Risk Factor Score Per Nursin RFS Level Per Nursing on Admit: 2=Moderate DAMON CLAUDIO MD October 17, 2018 13:34
--- NOTE | 2018-10-17 14:45 | Physical Therapy Daily Note ---
PT Daily Note-Current Subjective Pt laying Supine in bed visiting with friend upon arrival. Pt agrees to PT. Mental Status Patient Orientation: Person, Place, Situation Transfers Therapy Code Descriptions/Definitions Functional [place] Measure: 0=Not Assessed/NA 4=Minimal Assistance 1=Total Assistance 5=Supervision or Setup 2=Maximal Assistance 6=Modified [place] 3=Moderate Assistance 7=Complete [place] Therapy Quality Codes: 6 Independent with activity with or without an assistive device 5 Patient requires set up or clean up by helper. Patient completes activity by themselves 4 Supervision or touching assist (CGA). Stanley provide cues , steadying assist 3 The helper provides less than half the effort to complete the activity 2 The helper provides more than half the effort to complete the activity 1 Dependent. The helper does all the effort to complete an activity 7 Patient refused to complete or attempt activity 9 The patient did not perform the activity before the current illness or injury 88 Not attempted due to Medical conditions or safety concerns Scootin Rollin Supine to/from Sit: 4 Sit to/from Stand: 4 Sit to Lying (QC): 4 Sit to Stand (QC): 4 Weight Bearing Right Lower Extremity: Right Full Weight Bearing Left Lower Extremity: Left Full Weight Bearing Gait Training Does the Patient Walk?: Yes Gait (FIM): 2 Distance (FIM): 1=up to 49 ft Distance: 25' Walk 10 feet (QC): 4 Gait Level of Assist: 4 Gait Persons Needed: 1 Gait Assistive Device: FWW Pt fatigues easily and needs to return to bed after using restroom. Treatments Pt transfers from bed to standing then ambulates to restroom and back to bed. CIRCULATING PROCESS INSPECTOR retrieves laundry so pt could don pants. Pt folds laundry in bed focusing on sitting dynamic balance. Pt resting at end of tx. Nursing arriving for bladder scan. Pt has all needs met. Assessment Current Status: Good Progress Pt fatigues quickly. PT Short Term Goals Short Term Goals Time Frame: October 14, 2018 Transfers (B,C,W/C) (FIM): 5 Gait (FIM): 2 Distance (FIM): 5=953-57 ft Gait Assistive Device: FWW Wheelchair Distance: 100' PT Lawn Mower Goals Residential Goals PT Lawn Mower Goals Time Frame: October 25, 2018 Transfers (B,C,W/C) (FIM): 7 Sit to Lying (QC): 6 Lying-Sitting on Side/Bed(QC): 6 Sit to Stand (QC): 6 Rollin Roll Left to Right (QC): 6 Chair/Yyw-ar-Hinrz Xfer(QC): 6 Car Transfer (QC): 6 Does the Patient Walk: Yes Gait (FIM): 6 Gait distance (FIM): 3=150 ft Walk 10 feet (QC): 6 Walk 10ft-Uneven Surface(QC): 5 Walk 50ft with 2 Turns (QC): 6 Walk 150 ft (QC): 6 Gait Assistive Device: FWW Does the Pt use WC or Scooter?: No Stairs (FIM): 2 # of Steps: 1 1 Step (curb) (QC): 6 4 Steps (QC): 88 12 Steps (QC): 88 Picking up an Object (QC): 88 PT Plan Problem List Problem List: Activity Tolerance, Functional Strength, Safety, Balance, Gait Treatment/Plan Treatment Plan: Continue Plan of Care Treatment Plan: Bed Mobility, Education, Functional Activity Rafia, Functional Strength, Group Therapy, Gait, Safety, Therapeutic Exercise, Transfers Treatment Duration: October 25, 2018 Frequency: At least 5 of 7 days/Wk (IRF) Estimated Hrs Per Day: 1.5 hours per day Patient and/or Family Agrees t: Yes Safety Risks/Education Patient Education: Gait Training, Transfer Techniques, Correct Positioning, Safety Issues Teaching Recipient: Patient Teaching Methods: Discussion Response to Teaching: Verbalize Understanding Time/GCodes Time In: 1300 Time Out: 1330 Total Billed Treatment Time: 30 Total Billed Treatment 1, FA x2 (30m) G Codes Necessary: SINGH Jeffries PTA October 17, 2018 14:45
[2018-10-17 16:28] VITALS: BP 160/83
--- NOTE | 2018-10-17 16:33 | NUR ---
PROPAGATION WORKER met with patient, family and Dr. Martinez while Dr. Martinez discussed the recommendation of right sided heart ablation for treatment of A-flutter. Following an extensive conversation, patient and family are agreeable to procedure tomorrow at 12pm. Patient will then recover on med/surg floor overnight and return to ARU on 10/19. Therapy intends to provide car transfer training with family tomorrow in anticipation of short day pass on Sunday afternoon to attend [facility] graduation lunch. PROPAGATION WORKER will discuss with Dr. Parker the safety of proceeding with day pass following ablation with consideration of patient's fatigue level.
--- NOTE | 2018-10-17 16:37 | Cardiology Progress Note ---
Cardiology SOAP Progress Note Subjective: Mild tremor, nausea Objective: I&O/Vital Signs 10/17/18 10/17/18 10/17/18 06:14 09:00 16:28 Temp 97.6 97.4 Pulse 78 89 Resp 18 18 B/P (MAP) 146/76 (99) 160/83 (108) Pulse Ox 96 97 O2 Delivery Room Air Room Air Room Air 10/17/18 00:00 Intake Total 500 ml Balance 500 ml Weight (Pounds): 162 Weight (Ounces): 1.6 Weight (Calculated Kilograms): [id number] Constitutional: No appears stated age, No AAO x 3, No apparent distress, No PERRL, No well-developed, No well-nourished, No other Respiratory: No accessory muscle use, No respiratory distress, No chest tender , No chest expansion is symmetric; chest is bilaterally symmetric; No lungs clear to percussion; lungs clear to auscultation; No crackles, No rhonchi, No rales, No stridor, No wheezing, No pleural rub, No other Cardiovascular: regular rate-rhythm; No irregularly irregular, No extra beats, No parasternal heave is noted, No JVD, No edema, No bradycardia, No tachycardia , No point of maximal impulse, No cardiac thrills are palpable; S1 and S2; No gallop/S3, No gallop/S4, No diastolic murmur, No systolic murmur, No friction rub, No click, No other Gastrointestional: No tender, No soft, No round, No distended, No pulsatile mass, No organomegaly, No guarding, No rebound, No tenderness, No hernia, No mass, No audible bowel sounds, No abnormal bowel sounds, No abdominal bruits, No spleenomegaly, No other Extremities: No normal range of motion, No non-tender, No normal inspection, No pedal edema, No calf tenderness, No normal capillary refill, No pelvis stable , No calf tenderness, No inflammation, No pedal edema, No slow capillary refill , No swelling, No other, No abrasion, No clubbing, No cyanosis, No ecchymosis, No laceration, No no lower extremity edema bilateral, No significant edema, No tenderness, No wound Neurologic/Psychiatric: no motor/sensory deficits, alert, normal mood/affect, oriented x 3 Skin: pallor Results/Procedures: Labs Laboratory Tests 10/17/18 05:28: White Blood Count 6.5, Red Blood Count 4.29L, Hemoglobin 11.4L, Hematocrit 38, Mean Corpuscular Volume 87, Mean Corpuscular Hemoglobin 27, Mean Corpuscular Hemoglobin Concent 30L, Red Cell Distribution Width 21.4H, Platelet Count 307, Mean Platelet Volume 10.1, Neutrophils (%) (Auto) 69, Lymphocytes (%) (Auto) 18 , Monocytes (%) (Auto) 11, Eosinophils (%) (Auto) 3, Basophils (%) (Auto) 0, Neutrophils # (Auto) 4.4, Lymphocytes # (Auto) 1.1, Monocytes # (Auto) 0.7, Eosinophils # (Auto) 0.2, Basophils # (Auto) 0.0, Sodium Level 136, Potassium Level 3.4L, Chloride Level 98, Carbon Dioxide Level 25, Anion Gap 13, Blood Urea Nitrogen 13, Creatinine 0.94, Estimat Glomerular Filtration Rate 60, BUN/ Creatinine Ratio 14, Glucose Level 87, Calcium Level 10.0, Corrected Calcium 10.2H, Total Bilirubin 0.6, Aspartate Amino Transf (AST/SGOT) 18, Alanine Aminotransferase (ALT/SGPT) 18, Alkaline Phosphatase 100, Total Protein 8.2, Albumin 3.7, Amylase Level 93, Lipase 67 Microbiology 10/10/18 Urine Culture - Final, Complete Escherichia coli A/P: Assessment/Dx: Typical atrial flutter, Paroxysmal atrial fibrillation, Recent GI bleeding Plan: Typical atrial flutter, I spoke at length to the patient and Dr. Sahu. And Dr. Mcfarland. I discussed at length with the patient and the family. The patient and the family are keen to proceed with the typical atrial flutter ablation. I will arrange for it tomorrow. Paroxysmal atrial fibrillation, currently in sinus rhythm. Amiodarone discontinued due to tremor. No oral anticoagulation due to recent GI bleeding. Recent GI bleeding, not on any anticoagulation at this point in time. Dr. Mcfarland following as well. Cardiac EP will sign off. I will see her as an outpatient to set up ablation. Dr Mcfarland to continue cardiology follow up. Thank you for your consultation. Please call me if you have any questions. Jay Martinez MD, FACP, FACC, FSCAI, FHRS, CCDS Interventional Cardiology Cardiac Electrophysiology Vascular Medicine and Endovascular Interventions Tracy MARTINEZ MD October 17, 2018 4:37 pm
[2018-10-17] MEDS: TAMSULOSIN 0.4 MG (FLOMAX) CAP PO SCH (17:05)
--- NOTE | 2018-10-17 18:29 | NUR ---
Pt scheduled for cardiac ablation procedure 10/18.
[2018-10-17] MEDS: DILTIAZEM 240 MG (CARDIZEM CD) CAP PO SCH (21:45)
[2018-10-17] MEDS: LOSARTAN 100 MG (COZAAR) TABLET PO SCH (21:46)
--- NOTE | 2018-10-17 22:16 | Progress Note (SOAP) ---
Subjective Date Seen by a Provider: October 17, 2018 Time Seen by a Provider: 12:30 Subjective/Events-last exam Fwup beta strep bacteremia, paroxysmal atrial fibrillation, chronic anemia, IV iron transfusion reaction, weakness, colonic polyps, history of AVMs on capsule endoscopy, urinary retention, nausea, constipation. Not participating in therapies. Amiodarone stopped per cardiology due to ongoing nausea and possible other medication side effects so I had long discussion with both the patient and her daughter about proceeding with the right heart ablation. Objective Exam Vital Signs Date Time Temp Pulse Resp B/P (MAP) Pulse Ox O2 Delivery O2 Flow Rate FiO2 10/17/18 20:00 Room Air 10/17/18 16:28 97.4 89 18 160/83 (108) 97 Room Air 10/17/18 09:00 Room Air 10/17/18 06:14 97.6 78 18 146/76 (99) 96 Room Air I & O 10/17/18 07:00 Intake Total 600 ml Balance 600 ml Capillary Refill : General Appearance: No Apparent Distress Neck: Supple Respiratory: Lungs Clear Cardiovascular: Regular Rate, Rhythm, Systolic Murmur Gastrointestinal: normal bowel sounds, non tender, soft Extremity: Non Tender, No Calf Tenderness, No Pedal Edema Neurologic/Psychiatric: Alert, Oriented x3 Skin: Warm/Dry Results Lab Laboratory Tests 10/17/18 05:28: White Blood Count 6.5, Red Blood Count 4.29L, Hemoglobin 11.4L, Hematocrit 38, Mean Corpuscular Volume 87, Mean Corpuscular Hemoglobin 27, Mean Corpuscular Hemoglobin Concent 30L, Red Cell Distribution Width 21.4H, Platelet Count 307, Mean Platelet Volume 10.1, Neutrophils (%) (Auto) 69, Lymphocytes (%) (Auto) 18 , Monocytes (%) (Auto) 11, Eosinophils (%) (Auto) 3, Basophils (%) (Auto) 0, Neutrophils # (Auto) 4.4, Lymphocytes # (Auto) 1.1, Monocytes # (Auto) 0.7, Eosinophils # (Auto) 0.2, Basophils # (Auto) 0.0, Sodium Level 136, Potassium Level 3.4L, Chloride Level 98, Carbon Dioxide Level 25, Anion Gap 13, Blood Urea Nitrogen 13, Creatinine 0.94, Estimat Glomerular Filtration Rate 60, BUN/ Creatinine Ratio 14, Glucose Level 87, Calcium Level 10.0, Corrected Calcium 10.2H, Total Bilirubin 0.6, Aspartate Amino Transf (AST/SGOT) 18, Alanine Aminotransferase (ALT/SGPT) 18, Alkaline Phosphatase 100, Total Protein 8.2, Albumin 3.7, Amylase Level 93, Lipase 67 Microbiology 10/10/18 Urine Culture - Final, Complete Escherichia coli Assessment/Plan Assessment/Plan Assess & Plan/Chief Complaint 1. Recent Strep Bacteremia--resolved 2. Paroxyxmal Atrial Fibrillation--back in NSR, amiodarone DCed due to side effects, anticoagulants on hold due to anemia, now agrees to EP doing right heart ablation due to A flutter progressing to A fib after long discussion with myself and card 3. Iron Deficiency Anemia--H/H improved post transfusion and with hold of anticoagulants--Hgb stable 4. Hypertension--stable 5. Urinary Retention--on urecholine and flomax and improved 6. Weakness--PT/OT but not participating or progressing 7. Nausea--using zofran prn 8. Constipation-patient has been refusing miralax 9. ESBL positive UTI--on Macrobid Clinical Quality Measures DVT/VTE Risk/Contraindication: Risk Factor Score Per Nursin RFS Level Per Nursing on Admit: 2=Moderate ANTHONY PERDOMO DO October 17, 2018 22:15
[2018-10-18] MEDS: BETHANECHOL 25 MG (URECHOLINE) TAB PO SCH ×4 (05:44→21:00)
[2018-10-18 05:59] VITALS: BP 143/78
[2018-10-18] MEDS: CATHETER FLUSH 10 ML SYR IV SCH ×3 (06:05→22:00)
[2018-10-18] MEDS: PANTOPRAZOLE 40 MG (PROTONIX) VIAL IV SCH ×2 (06:05→21:00)
--- NOTE | 2018-10-18 08:32 | Physical Therapy Daily Note ---
PT Daily Note-Current Subjective Pt. in bed, daughter present. Pt. declines therapies stating she is having a procedure at 12 noon ( cardiac ablation) and feels very dizzy and weak and cannot work with PT. This was reported to nursing and Dr Parker with request that pt. be excused from 3 hr requirement this date. Transfers Therapy Code Descriptions/Definitions Functional [place] Measure: 0=Not Assessed/NA 4=Minimal Assistance 1=Total Assistance 5=Supervision or Setup 2=Maximal Assistance 6=Modified [place] 3=Moderate Assistance 7=Complete [place] Therapy Quality Codes: 6 Independent with activity with or without an assistive device 5 Patient requires set up or clean up by helper. Patient completes activity by themselves 4 Supervision or touching assist (CGA). [place] provide cues , steadying assist 3 The helper provides less than half the effort to complete the activity 2 The helper provides more than half the effort to complete the activity 1 Dependent. The helper does all the effort to complete an activity 7 Patient refused to complete or attempt activity 9 The patient did not perform the activity before the current illness or injury 88 Not attempted due to Medical conditions or safety concerns Weight Bearing Right Lower Extremity: Right Full Weight Bearing Left Lower Extremity: Left Full Weight Bearing Assessment Current Status: Refused Treatment PT Short Term Goals Short Term Goals Time Frame: October 14, 2018 Transfers (B,C,W/C) (FIM): 5 Gait (FIM): 2 Distance (FIM): 9=960-13 ft Gait Assistive Device: FWW Wheelchair Distance: 100' PT Sheep Sorter Goals Sheep Sorter Goals PT Shelter Goals Time Frame: October 25, 2018 Transfers (B,C,W/C) (FIM): 7 Sit to Lying (QC): 6 Lying-Sitting on Side/Bed(QC): 6 Sit to Stand (QC): 6 Rollin Roll Left to Right (QC): 6 Chair/[id number]-[id number] Xfer(QC): 6 Car Transfer (QC): 6 Does the Patient Walk: Yes Gait (FIM): 6 Gait distance (FIM): 3=150 ft Walk 10 feet (QC): 6 Walk 10ft-Uneven Surface(QC): 5 Walk 50ft with 2 Turns (QC): 6 Walk 150 ft (QC): 6 Gait Assistive Device: FWW Does the Pt use WC or Scooter?: No Stairs (FIM): 2 # of Steps: 1 1 Step (curb) (QC): 6 4 Steps (QC): 88 12 Steps (QC): 88 Picking up an Object (QC): 88 PT Plan Treatment/Plan Treatment Plan: Continue Plan of Care Treatment Plan: Bed Mobility, Education, Functional Activity Rafia, Functional Strength, Group Therapy, Gait, Safety, Therapeutic Exercise, Transfers Treatment Duration: October 25, 2018 Frequency: At least 5 of 7 days/Wk (IRF) Estimated Hrs Per Day: 1.5 hours per day Patient and/or Family Agrees t: Yes Time/GCodes Time In: 805 Time Out: 810 Total Billed Treatment Time: 0 Total Billed Treatment 1,no Rx, no Chg G Codes Necessary: No EYAL MANDEL LIBRARY SCIENCE PROFESSOR October 18, 2018 08:32
--- NOTE | 2018-10-18 08:51 | PM&R Progress Note ---
Subjective HPI/CC On Admission Date Seen by Provider: October 18, 2018 Time Seen by Provider: 08:30 Chief complaint: Myopathy with debility. HPI: This is a 68[address] 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 Pt has also had some urinary retention, Dr. Greco has been consulted and recommended self caths once a day with bladder scanning as needed and due to all of the 14 days of hospital stay she has become very debilitated and prior level of functioning was independent with use of a cane and now she can only take a few steps to go to the toilet. She did have a low grade fever today, sepsis workup with laboratory was ordered by Dr. Mcfarland to assess for any type of sepsis but we will continue the workup with Dr. Sahu's help along with Dr. Mcfarland, Dr. Cheng and Dr. Greco while she is on the inpatient rehab unit prior to discharge home to live independently. Subjective/Events-last exam Daughter who I had not met is at the bedside today, she has 3 daughters Atrial ablation today at [address] Martinez and cannot participate in therapy today Pt agrees for senior care placement at first of week Bowel movement loose after meds yesterday Conferred with RN Reviewed therapy notes Appreciate Dr Martinez Very complex case Review of Systems General: Fatigue Neurological: Weakness, Numbness, Incoordination Objective Exam Vital Signs Vital Signs Date Time Temp Pulse Resp B/P (MAP) Pulse Ox O2 Delivery O2 Flow Rate FiO2 10/18/18 09:00 Room Air 10/18/18 05:59 99.3 81 16 143/78 (99) 95 Capillary Refill : General Appearance: No Apparent Distress, Chronically ill, Thin HEENT: PERRL/EOMI, Normal ENT Inspection, Pharynx Normal, Moist Mucous Membranes Neck: Full Range of Motion, Normal Inspection, Non Tender, Supple Respiratory: Lungs Clear, Normal Breath Sounds, No Accessory Muscle Use, No Respiratory Distress Cardiovascular: Regular Rate, Rhythm, No Edema, Systolic Murmur Gastrointestinal: Normal Bowel Sounds, No Organomegaly, No Pulsatile Mass, Non Tender, Soft Back: Normal Inspection, No CVA Tenderness, No Vertebral Tenderness Extremity: Non Tender, No Calf Tenderness, No Pedal Edema Neurologic/Psychiatric: Alert, Oriented x3, Normal Mood/Affect, holistic nutritionist II-XII Norm as 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 FIM Transfers Therapy Code Descriptions/Definitions Functional [place] Measure: 0=Not Assessed/NA 4=Minimal Assistance 1=Total Assistance 5=Supervision or Setup 2=Maximal Assistance 6=Modified [place] 3=Moderate Assistance 7=Complete [place] Therapy Quality Codes: 6 Independent with activity with or without an assistive device 5 Patient requires set up or clean up by helper. Patient completes activity by themselves 4 Supervision or touching assist (CGA). [place] provide cues , steadying assist 3 The helper provides less than half the effort to complete the activity 2 The helper provides more than half the effort to complete the activity 1 Dependent. The helper does all the effort to complete an activity 7 Patient refused to complete or attempt activity 9 The patient did not perform the activity before the current illness or injury 88 Not attempted due to Medical conditions or safety concerns Mental Status/Objective Comprehension: 7 Expression: 7 Social Interaction: 7 Problem Solvin Memory: 7 ADL-Treatment Feedin (Set up) Eating (QC): 5 Groomin Oral Hygiene (QC): 6 Bathin Bathing Location: L Arm, R Arm, L Upper Leg, R Upper Leg, L Lower Leg ( including foot), R Lower Leg (including foot), Chest, Abdomen, Buttocks, Perineal Area Shower/Bathe Self (QC): 3 Upper Extremity Dressin Upper Body Dressing (QC): 5 Lower Extremity Dressin Lower Body Dressing (QC): 3 On/Off Footwear (QC): 5 Toiletin Toileting Hygiene (QC): 2 Toilet/Commode Transfer: 4 Toilet Transfer (QC): 3 Shower: 4 Assessment/Plan Assessment and Plan Assess & Plan/Chief Complaint Assessment: 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 Acute on chronic depression ESBL UTI Somatic complaints Mood disorder Plan: IRF protocols Home meds maintained Nausea meds will continue Pain meds Ultram scheduled per PCP Dr Greco appreciated Self caths and bladder scan prn daily per Dr Greco orders if she complies BM regimen to be maintained since bowels are now moving well overall on schedule Appreciate Dr Mcfarland and Dr Greco and Dr Sahu and Dr Martinez Monitor labs Anticoagulation once no longer a risk for bleeding Nausea and depression addressed by PCP and much improved some days then other days not so much ESBL UTI with Macrobid to be completed Sleep study per Dr Cheng May need NH placement so will reach out to PCP to see if she can help motivate or consult behavioral health Atrial ablation today unable to participate in therapies today (1) Myopathy (2) Atrial fibrillation with rapid ventricular response (3) Palpitations (4) Nausea (5) Headache (6) Atrial fibrillation (7) Iron deficiency (8) Fever (9) Urinary retention (10) Anemia (11) Depression (12) Dyspnea (13) Edema (14) Cardiac murmur (15) GERD (gastroesophageal reflux disease) (16) Cancer of spinal column (17) Debility (18) Late eff nerv injury trnk NEC (19) Leg weakness (20) Anticoagulant long-term use (21) Atrial fibrillation with rapid ventricular response (22) Transfusion of blood during current hospitalization (23) Self-catheterizes urinary bladder (24) Bacteremia due to Streptococcus (25) Fever (26) UTI (urinary tract infection) (27) UTI due to extended-spectrum beta lactamase (ESBL) producing Escherichia coli (28) Somatization disorder YURI MARSHALL DO October 18, 2018 08:51
--- NOTE | 2018-10-18 08:52 | Cardiology Progress Note ---
Subjective Date Seen by Provider: October 18, 2018 Time Seen by Provider: 08:51 Subjective/Events-last exam Patient is in bed, still having tremor, no chest pain Review of Systems General: No Chills, No Night Sweats; Fatigue, Malaise; No Appetite, No Other HEENT: No Head Aches, No Visual Changes, No Eye Pain, No Ear Pain, No Dysphasia , No Sinus Congestion, No Post Nasal Drip, No Sore Throat, No Other Pulmonary: No Dyspnea, No Cough, No Pleuritic Chest Pain, No Other Cardiovascular: No: Chest Pain, Palpitations, Orthopnea, Paroxysmal Noc. Dyspnea, Edema, Lt Headedness, Other Objective-Cardiology Exam Last Set of Vital Signs Vital Signs 10/18/18 05:59 Temp 99.3 Pulse 81 Resp 16 B/P (MAP) 143/78 (99) Pulse Ox 95 O2 Delivery Room Air Capillary Refill : I&O Intake and Output 10/18/18 00:00 Intake Total 840 ml Balance 840 ml Intake Oral 840 ml # Voids 6 # Urine Diapers 2 # Bowel Movements 3 General: Alert, Oriented X3, Cooperative HEENT: Atraumatic, PERRLA Neck: Supple, No JVD, No Thyromegaly Lungs: Clear to Auscultation, Normal Air Movement Heart: Regular Rate, Normal S1, Normal S2, Other (SM at LSB) Abdomen: Normal Bowel Sounds, Soft, No Tenderness, No Hepatosplenomegaly, No Masses Extremities: No Clubbing, No Cyanosis, No Edema, Normal Pulses, No Tenderness/ Swelling Skin: No Rashes, No Breakdown, No Significant Lesion Neuro: Normal Gait, Normal Speech, Strength at 5/5 X4 Ext, Normal Tone, Sensation Intact Psych/Mental Status: Mental Status NL, Mood NL A/P-Cardiology Admission Diagnosis Strep bacteremia Atrial fibrillation/flutter Anemia Generalized debility Assessment/Plan Status post Streptococcus bacteremia, fever and chills and generalized weakness , started on Rocephin and vancomycin, managed by primary care physician, TITUS done 09/23/18 revealed mild with no vegetation to valves, received Rocephin for 11 days last dose on 10/04, received 4 days of Vanco. Better at this time, continue to monitor ESBL UTI- on antibiotic, management per PCP Hypertension, controlled, continue to monitor. Generalized debility/weakness- continue PT Paroxysmal atrial fibrillation/flutter, currently back in sinus rhythm, maintained on Amiodarone. Dr. Martinez following, ablation procedure was postponed , currently having increasing nausea subsequently I stopped amiodarone, discussed with Dr. Martinez, may proceed with ablation. Anemia, has been on iron supplement, s/p blood transfusion. Currently off all OAC. EGD/colonoscopy done revealed no active bleeding, continue to monitor H&H History of chronic anticoagulation, had GI bleed on Pradaxa, intolerant to Coumadin. Xarelto was discontinued secondary to worsening anemia History of multiple episodes of GI bleed. Had workup done by Dr. Alberts and she was restarted on Xarelto, stopped for now and monitor H&H, reportedly had AVM as a source of the intermittent GI bleed Questionable underlying sleep apnea, Dr. Cheng following. Status post iron transfusion with questionable allergic reaction, had similar reaction to different iron product with generalized weakness and generalized body ache, has been managed by Dr. Nicholas History of abnormal baseline EKG with first-degree AV block and right bundle branch block, right ventricular hypertrophy pattern. History of syncope while on atenolol was unable to tolerate the medication in the past. History of pancreatic nodule, had workup with Dr. Alberts Family history of CVA Clinical Quality Measures DVT/VTE Risk/Contraindication: Risk Factor Score Per Nursin RFS Level Per Nursing on Admit: 2=Moderate DAMON CLAUDIO MD October 18, 2018 08:52
--- NOTE | 2018-10-18 09:40 | NUR ---
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 Parker to discuss safety of day pass tomorrow, Dr. Parker is agreeable to this. Family will complete car transfer with PT today.
[2018-10-18] MEDS: DOCUSATE SODIUM 100 MG (COLACE) CAP PO SCH ×2 (11:15→21:00)
[2018-10-18] MEDS: HYDROCHLOROTHIAZIDE 25 MG (HCTZ) TAB PO SCH (11:16)
[2018-10-18] MEDS: POLYETHYLENE GLYCOL 17 GM (MIRALAX) PACK PO SCH ×2 (11:16→21:00)
[2018-10-18] MEDS: NITROFURANTOIN 100 MG (MACROBID) CAPSULE PO SCH ×2 (11:16→21:00)
--- NOTE | 2018-10-18 11:16 | Cardiology Progress Note ---
Cardiology SOAP Progress Note Subjective: No cardiac symptoms. Objective: I&O/Vital Signs 10/18/18 10/18/18 05:59 09:00 Temp 99.3 Pulse 81 Resp 16 B/P (MAP) 143/78 (99) Pulse Ox 95 O2 Delivery Room Air Room Air 10/18/18 00:00 Intake Total 740 ml Balance 740 ml Weight (Pounds): 162 Weight (Ounces): 1.6 Weight (Calculated Kilograms): [id number] Constitutional: No appears stated age, No AAO x 3, No apparent distress, No PERRL, No well-developed, No well-nourished, No other Respiratory: No accessory muscle use, No respiratory distress, No chest tender , No chest expansion is symmetric; chest is bilaterally symmetric; No lungs clear to percussion; lungs clear to auscultation; No crackles, No rhonchi, No rales, No stridor, No wheezing, No pleural rub, No other Cardiovascular: regular rate-rhythm; No irregularly irregular, No extra beats, No parasternal heave is noted, No JVD, No edema, No bradycardia, No tachycardia , No point of maximal impulse, No cardiac thrills are palpable; S1 and S2; No gallop/S3, No gallop/S4, No diastolic murmur, No systolic murmur, No friction rub, No click, No other Gastrointestional: No tender, No soft, No round, No distended, No pulsatile mass, No organomegaly, No guarding, No rebound, No tenderness, No hernia, No mass, No audible bowel sounds, No abnormal bowel sounds, No abdominal bruits, No spleenomegaly, No other Extremities: No normal range of motion, No non-tender, No normal inspection, No pedal edema, No calf tenderness, No normal capillary refill, No pelvis stable , No calf tenderness, No inflammation, No pedal edema, No slow capillary refill , No swelling, No other, No abrasion, No clubbing, No cyanosis, No ecchymosis, No laceration, No no lower extremity edema bilateral, No significant edema, No tenderness, No wound Neurologic/Psychiatric: no motor/sensory deficits, alert, normal mood/affect, oriented x 3 Skin: pallor Results/Procedures: Labs Microbiology 10/10/18 Urine Culture - Final, Complete Escherichia coli A/P: Assessment/Dx: Typical atrial flutter, Paroxysmal atrial fibrillation, Recent GI bleeding Plan: Typical atrial flutter, I spoke at length to the patient and Dr. Sahu. And Dr. Mcfarland. I discussed at length with the patient and the family. The patient and the family are keen to proceed with the typical atrial flutter ablation. EP study and typical atrial flutter ablation today. Paroxysmal atrial fibrillation, currently in sinus rhythm. Amiodarone discontinued due to tremor. No oral anticoagulation due to recent GI bleeding. Recent GI bleeding, not on any anticoagulation at this point in time. Dr. Mcfarland following as well. Cardiac EP will sign off. I will see her as an outpatient to set up ablation. Dr Mcfarland to continue cardiology follow up. Thank you for your consultation. Please call me if you have any questions. Jay Martinez MD, FACP, FACC, FSCAI, FHRS, CCDS Interventional Cardiology Cardiac Electrophysiology Vascular Medicine and Endovascular Interventions Tracy MARTINEZ MD October 18, 2018 11:16 am
[2018-10-18] MEDS: VITAMIN D3 1,000 UNITS (CHOLECALCIFEROL) TABLET PO SCH (11:17)
[2018-10-18] MEDS: SERTRALINE 50 MG (ZOLOFT) TABLET PO SCH ×2 (11:17→21:00)
--- NOTE | 2018-10-18 11:23 | Occupational Ther Daily Note ---
OT Current Status-Daily Note Subjective Pt increased fatigue and anxiety over procedure to be completed today. Family present in room. Pt has refused therapy earlier this morning. PT supervisor chlorine liquefaction, nrsg and doctor was notified. Pt did agree to participate in functional activities that involved family. Mental Status/Objective Patient Orientation: Person, Place, Time, Situation Therapy Code Descriptions/Definitions Functional [place] Measure: 0=Not Assessed/NA 4=Minimal Assistance 1=Total Assistance 5=Supervision or Setup 2=Maximal Assistance 6=Modified [place] 3=Moderate Assistance 7=Complete [place] Attachments: IV (midline) ADL-Treatment Skills of 2 therapist needed for skilled instruction and care while completing activities that promoted core, UE/LE strengthening, functional transfers/ mobility and family training. PT worked on LE strengthening transfers to/from car and multiple surfaces, family safety training with transfers and ambulation and supine LE exercises. OT worked on UE strengthening through daily tasks, bed mobility then toileting and other ADL tasks. Pt fatigues quickly and increased pain decreases ability for prolonged mobility and functional tasks. Pt is demonstrating ability to complete own dressing after set up with min A in standing when pt hikes pants over hips. Pt stood with close SBA to complete grooming at sink. Pt then was able to lift feet in bed and use bed rails to scoot self up in bed with verbal cues. After therapy, pt lying in bed with call light/phone in reach. All needs met in room. Therapy Code Descriptions/Definitions Functional [place] Measure: 0=Not Assessed/NA 4=Minimal Assistance 1=Total Assistance 5=Supervision or Setup 2=Maximal Assistance 6=Modified [place] 3=Moderate Assistance 7=Complete [place] Therapy Quality Codes: 6 Independent with activity with or without an assistive device 5 Patient requires set up or clean up by helper. Patient completes activity by themselves 4 Supervision or touching assist (CGA). [place] provide cues , steadying assist 3 The helper provides less than half the effort to complete the activity 2 The helper provides more than half the effort to complete the activity 1 Dependent. The helper does all the effort to complete an activity 7 Patient refused to complete or attempt activity 9 The patient did not perform the activity before the current illness or injury 88 Not attempted due to Medical conditions or safety concerns Grooming (FIM): 5 Oral Hygiene (QC): 4 Upper Body (FIM): 5 Upper Body Dressing (QC): 5 Lower Body Dressing (FIM): 4 Lower Body Dressing (QC): 3 On/Off Footwear (QC): 6 Toileting (FIM): 3 (CGA in standing to manipulate clothing. Pt cleanses self after voiding then assist to thoroughly cleanse buttocks.) Toileting Hygiene (QC): 2 Transfers (B, C, W/C) (FIM): 4 Toilet/Commode Transfer (FIM): 4 (Using FWW and BSC, min A due to verbal cues for correct placement.) Toilet Transfer (QC): 3 OT Short Term Goals Short Term Goals Time Frame: October 21, 2018 Eating(FIM): 5 Grooming(FIM): 5 Bathing(FIM): 5 Upper Body Dressing(FIM): 5 Lower Body Dressing(FIM): 5 Toileting(FIM): 5 Transfers (B,C,W/C) (FIM): 5 Toilet/Commode Transfer(FIM): 5 Shower Transfer(FIM): 4 Additional Short Term Goals: 1-Demonstrate ADL Tasks, 2-Verbalize Understanding , 3-ImproveStrength/Rafia 1=Demonstrate adherence to instructed precautions during ADL tasks. 2=Patient will verbalize/demonstrate understanding of assistive devices/ modifications for ADL. 3=Patient will improve strength/tolerance for activity to enable patient to perform ADL's. OT Mcfp Goals Mcfp Goals Time Frame: November 04, 2018 Eating (FIM): 6 Eating (QC): 6 Groomin Oral Hygiene (QC): 6 Bathing(FIM): 5 Shower/Bathe Self (QC): 5 Upper Body Dressing(FIM): 6 Upper Body Dressing (QC): 6 Lower Body Dressing(FIM): 6 Lower Body Dressing (QC): 6 On/Off Footwear (QC): 6 Toileting(FIM): 6 Toileting Hygiene (QC): 6 Transfers (B,C,W/C) (FIM): 6 Toilet/Commode Transfer(FIM): 6 Toilet/Commode Transfer (QC): 6 Shower Transfer(FIM): 5 Additional Goals: 1-Demonstrate ADL Tasks, 2-Verbalize Understanding, 3- ImproveStrength/Rafia 1=Demonstrate adherence to instructed precautions during ADL tasks. 2=Patient will verbalize/demonstrate understanding of assistive devices/ modifications for ADL. 3=Patient will improve strength/tolerance for activity to enable patient to perform ADL's. OT Education/Plan Discharge Recommendations Plan/Recommendations: Continue POC Treatment Plan/Plan of Care Patient would benefit from OT for education, treatment and training to promote independence in ADL's, mobility, safety and/or upper extremity function for ADL' s. Plan of Care: ADL Retraining, Functional Mobility, Group Exercise/Act as Ind, UE Funct Exercise/Act Treatment Duration: November 04, 2018 Frequency: At least 5 of 7 days/Wk (IRF) Estimated Hrs Per Day: 1.5 hours per day Agreement: Yes Rehab Potential: Fair Time/GCodes Start Time: 10:00 Stop Time: 11:30 Total Time Billed (hr/min): 90 Billed Treatment Time 1 visit-FA 6 (90 min) co-treat with PT entire session MAXIMINO FERGUSON October 18, 2018 11:23
--- NOTE | 2018-10-18 11:24 | Physical Therapy Daily Note ---
PT Daily Note-Current Subjective SW states she has visited with pt. and she will agree to car TRF and family training and Rx now. Upon entering room pt. rolls her eyes and states " you just wont relent will you"? Pt. states she is a little anxious about her upcoming procedure and wants them to be aware of her midline etc. This CONTACT LENS MOLDER making sure nursing forwards this info. Pain Numeric Pain Scale: 4 Location: Medial Location Body Site: Back Pain Description: Ache Comment: c/o back discomfort with bridging for exercises Mental Status Patient Orientation: Person, Place, Time, Situation Transfers Therapy Code Descriptions/Definitions Functional [place] Measure: 0=Not Assessed/NA 4=Minimal Assistance 1=Total Assistance 5=Supervision or Setup 2=Maximal Assistance 6=Modified [place] 3=Moderate Assistance 7=Complete [place] Therapy Quality Codes: 6 Independent with activity with or without an assistive device 5 Patient requires set up or clean up by helper. Patient completes activity by themselves 4 Supervision or touching assist (CGA). [place] provide cues , steadying assist 3 The helper provides less than half the effort to complete the activity 2 The helper provides more than half the effort to complete the activity 1 Dependent. The helper does all the effort to complete an activity 7 Patient refused to complete or attempt activity 9 The patient did not perform the activity before the current illness or injury 88 Not attempted due to Medical conditions or safety concerns Transfers (B, C, W/C) (FIM): 4 Scootin Rollin Supine to/from Sit: 4 Sit to/from Stand: 4 (low surface more difficult, needs pillow or cushion to raise height for CGA TRF) Car Transfer (QC): 4 family here for car TRF training. Pt. has been in out of this vehicle previously and feels she can accomplish this . This pts family was also reviewed on transporting loading and unloading the w/c she will borrow for her outing Weight Bearing Right Lower Extremity: Right Full Weight Bearing Left Lower Extremity: Left Full Weight Bearing Gait Training Does the Patient Walk?: Yes Gait (FIM): 1 Distance (FIM): 1=up to 49 ft (12ftx2) Gait Level of Assist: 4 Gait Persons Needed: 1 Gait Assistive Device: FWW w/c to follow Exercises Supine Ex: Bridging, Ankle pumps, Quad Set, Rolling, Glut sets, Heel Slides, Short Arc Quads, Scooting, Straight leg raise (x4 bilat), Hip abd/add Supine Reps: 12 Seated Therapy Exercises: Sit to stand Seated Reps: 8 Treatments toileting with min assist slacks Assessment Current Status: Good Progress family here for car TRF training as well as managing w/c& leg rests, gait safety and gait belt etc. Pt. to go home for visit tomorrow, co Rx with OT for coordinated family education encompassing pts total ADLs etc PT Short Term Goals Short Term Goals Time Frame: October 14, 2018 Transfers (B,C,W/C) (FIM): 5 Gait (FIM): 2 Distance (FIM): 8=012-31 ft Gait Assistive Device: FWW Wheelchair Distance: 100' PT Wafer Fabrication Technician Goals Wafer Fabrication Technician Goals PT Wafer Fabrication Technician Goals Time Frame: October 25, 2018 Transfers (B,C,W/C) (FIM): 7 Sit to Lying (QC): 6 Lying-Sitting on Side/Bed(QC): 6 Sit to Stand (QC): 6 Rollin Roll Left to Right (QC): 6 Chair/Ixk-ru-Gdjfi Xfer(QC): 6 Car Transfer (QC): 6 Does the Patient Walk: Yes Gait (FIM): 6 Gait distance (FIM): 3=150 ft Walk 10 feet (QC): 6 Walk 10ft-Uneven Surface(QC): 5 Walk 50ft with 2 Turns (QC): 6 Walk 150 ft (QC): 6 Gait Assistive Device: FWW Does the Pt use WC or Scooter?: No Stairs (FIM): 2 # of Steps: 1 1 Step (curb) (QC): 6 4 Steps (QC): 88 12 Steps (QC): 88 Picking up an Object (QC): 88 PT Plan Treatment/Plan Treatment Plan: Continue Plan of Care Treatment Plan: Bed Mobility, Education, Functional Activity Rafia, Functional Strength, Group Therapy, Gait, Safety, Therapeutic Exercise, Transfers Treatment Duration: October 25, 2018 Frequency: At least 5 of 7 days/Wk (IRF) Estimated Hrs Per Day: 1.5 hours per day Patient and/or Family Agrees t: Yes Safety Risks/Education Patient Education: Gait Training, Transfer Techniques, Correct Positioning, Instructions to Caregiver, Disease Process, Safety Issues Teaching Recipient: Patient, Primary Caregiver, Family Teaching Methods: Demonstration, Discussion Response to Teaching: Verbalize Understanding, Return Demonstration, Reinforcement Needed Time/GCodes Time In: 945 Time Out: 1115 Total Billed Treatment Time: 90 Total Billed Treatment 1,EX25m,GT15m,FA50m co Rx G Codes Necessary: EYAL Ross CONTACT LENS MOLDER October 18, 2018 11:24
[2018-10-18] MEDS ORDERED: LIDOCAINE 1% INJ 20 ML 20 ML VIAL ONE (11:26)
[2018-10-18] MEDS ORDERED: NS IV 1000 ML 1,000 ML ONE (11:26)
[2018-10-18] MEDS ORDERED: HEParin (CATH LAB) 2,000 ML IV ONE (11:26)
[2018-10-18] MEDS ORDERED: fentaNYL INJECTION 100 MCG/2 ML AMP ONE (11:39)
[2018-10-18] MEDS ORDERED: MIDAZOLAM 2 MG/2 ML (VERSED) VIAL ONE (11:39)
[2018-10-18] MEDS ORDERED: SEVOFLURANE (ULTANE) 15 ML INHAL SOLN ONE (11:40)
[2018-10-18] MEDS ORDERED: LIDOCAINE PF 1% 2 ML AMP ONE (11:40)
[2018-10-18] MEDS ORDERED: ROCURONIUM 10 MG/ML 5 ML SYRINGE IV ONE (11:40)
[2018-10-18] MEDS ORDERED: ONDANSETRON 4 MG/2 ML (SDV) Z0FRAN ONE (11:41)
[2018-10-18] MEDS ORDERED: proPOfol 200 MG/20 ML (DIPRIVAN) VIAL IV ONE (11:43)
[2018-10-18] MEDS ORDERED: ISOPROTERENOL 0.2 MG/D5W 50 ML IV ONE (11:45)
[2018-10-18] MEDS ORDERED: NS IV 1000 ML 1,000 ML IV SCH (14:43)
[2018-10-18] MEDS ORDERED: PATIENT MAY USE OWN MEDS, ALL PO SCH (14:45)
[2018-10-18] MEDS ORDERED: morphine INJ 10 MG/ML 1ML (SYR OR VIAL) ONE (15:27)
[2018-10-18] MEDS: TAMSULOSIN 0.4 MG (FLOMAX) CAP PO SCH (18:00)
[2018-10-18] MEDS: LOSARTAN 100 MG (COZAAR) TABLET PO SCH (21:00)
[2018-10-18] MEDS: DILTIAZEM 240 MG (CARDIZEM CD) CAP PO SCH (21:00)
[2018-10-19] MEDS: CATHETER FLUSH 10 ML SYR IV SCH ×3 (06:00→21:06)
[2018-10-19] MEDS: BETHANECHOL 25 MG (URECHOLINE) TAB PO SCH ×4 (06:00→21:05)
[2018-10-19] MEDS: PANTOPRAZOLE 40 MG (PROTONIX) VIAL IV SCH ×2 (07:00→21:06)
[2018-10-19] MEDS: SERTRALINE 50 MG (ZOLOFT) TABLET PO SCH ×2 (09:00→21:06)
--- NOTE | 2018-10-19 10:29 | PM&R Progress Note ---
Subjective HPI/CC On Admission Date Seen by Provider: October 19, 2018 Time Seen by Provider: 10:30 Chief complaint: Myopathy with debility. HPI: This is a 68[address] 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 Pt has also had some urinary retention, Dr. Greco has been consulted and recommended self caths once a day with bladder scanning as needed and due to all of the 14 days of hospital stay she has become very debilitated and prior level of functioning was independent with use of a cane and now she can only take a few steps to go to the toilet. She did have a low grade fever today, sepsis workup with laboratory was ordered by Dr. Mcfarland to assess for any type of sepsis but we will continue the workup with Dr. Sahu's help along with Dr. Mcfarland, Dr. Cheng and Dr. rGeco while she is on the inpatient rehab unit prior to discharge home to live independently. Subjective/Events-last exam Daughter who I had not met is at the bedside today, she has 3 daughters Atrial ablation today at [address] Martinez and cannot participate in therapy today Pt agrees for [facility] at first of week Bowel movement loose after meds yesterday Conferred with RN Reviewed therapy notes Appreciate Dr Martinez Very complex case Objective Exam Vital Signs Vital Signs Date Time Temp Pulse Resp B/P (MAP) Pulse Ox O2 Delivery O2 Flow Rate FiO2 10/18/18 09:00 Room Air 10/18/18 05:59 99.3 81 16 143/78 (99) 95 Capillary Refill : General Appearance: No Apparent Distress, Chronically ill, Thin HEENT: PERRL/EOMI, Normal ENT Inspection, Pharynx Normal, Moist Mucous Membranes Neck: Full Range of Motion, Normal Inspection, Non Tender, Supple Respiratory: Lungs Clear, Normal Breath Sounds, No Accessory Muscle Use, No Respiratory Distress Cardiovascular: Regular Rate, Rhythm, No Edema, Systolic Murmur Gastrointestinal: Normal Bowel Sounds, No Organomegaly, No Pulsatile Mass, Non Tender, Soft Back: Normal Inspection, No CVA Tenderness, No Vertebral Tenderness Extremity: Non Tender, No Calf Tenderness, No Pedal Edema Neurologic/Psychiatric: Alert, Oriented x3, Normal Mood/Affect, environmental engineering aide II-XII Norm as 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 FIM Transfers Therapy Code Descriptions/Definitions Functional [place] Measure: 0=Not Assessed/NA 4=Minimal Assistance 1=Total Assistance 5=Supervision or Setup 2=Maximal Assistance 6=Modified [place] 3=Moderate Assistance 7=Complete [place] Therapy Quality Codes: 6 Independent with activity with or without an assistive device 5 Patient requires set up or clean up by helper. Patient completes activity by themselves 4 Supervision or touching assist (CGA). [place] provide cues , steadying assist 3 The helper provides less than half the effort to complete the activity 2 The helper provides more than half the effort to complete the activity 1 Dependent. The helper does all the effort to complete an activity 7 Patient refused to complete or attempt activity 9 The patient did not perform the activity before the current illness or injury 88 Not attempted due to Medical conditions or safety concerns Transfers (B, C, W/C) (FIM): 4 Scootin Rollin Roll Left to Right (QC): 4 Supine to/from Sit: 4 Sit to/from Stand: 4 (low surface more difficult, needs pillow or cushion to raise height for CGA TRF) Sit to Lying (QC): 4 Sit to Stand (QC): 4 Chair/Jqg-pz-Rhtuz Xfer(QC): 3 (assist to move walker and to stabilize at gait belt) Bed to/from Chair: 4 Car Transfer (QC): 4 Gait Training Does the Patient Walk?: Yes Gait (FIM): 1 Distance (FIM): 1=up to 49 ft (12ftx2) Distance: 25' Walk 10 feet (QC): 4 Walk 50 ft with 2 Turns(QC): 88 (unable to walk this distance) Walk 150 ft (QC): 88 Walking 10ft/uneven surface-QC: 88 (unsafe to attempt at this time due to balance and strength deficits) Gait Level of Assist: 4 Gait Persons Needed: 1 Gait Assistive Device: FWW Wheelchair Training Does the Pt Use a Wheelchair?: Yes Wheelchair (FIM): 2 Wheelchair Distance: 2=233-31 ft (125ft, 100ft) Distance: 100' Wheelchair Level of Assist: 4 Wheel 50 ft with 2 turns (QC): 4 Type of Wheelchair: Manual Stair Training Stairs (FIM): 0 1 Step (curb) (QC): 88 4 Steps (QC): 88 12 Steps (QC): 88 Balance Picking up an Object (QC): 88 Mental Status/Objective Comprehension: 7 Expression: 7 Social Interaction: 7 Problem Solvin Memory: 7 ADL-Treatment Feedin (Set up) Eating (QC): 5 Groomin Oral Hygiene (QC): 4 Bathin Bathing Location: L Arm, R Arm, L Upper Leg, R Upper Leg, L Lower Leg ( including foot), R Lower Leg (including foot), Chest, Abdomen, Buttocks, Perineal Area Shower/Bathe Self (QC): 3 Upper Extremity Dressin Upper Body Dressing (QC): 5 Lower Extremity Dressin Lower Body Dressing (QC): 3 On/Off Footwear (QC): 6 Toiletin (CGA in standing to manipulate clothing. 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 Acute on chronic depression ESBL UTI Somatic complaints Mood disorder Plan: IRF protocols Home meds maintained Nausea meds will continue Pain meds Ultram scheduled per PCP Dr Greco appreciated Self caths and bladder scan prn daily per Dr Greco orders if she complies BM regimen to be maintained since bowels are now moving well overall on schedule Appreciate Dr Mcfarland and Dr Greco and Dr Sahu and Dr Martinez Monitor labs Anticoagulation once no longer a risk for bleeding Nausea and depression addressed by PCP and much improved some days then other days not so much ESBL UTI with Macrobid to be completed Sleep study per Dr Cheng May need NH placement so will reach out to PCP to see if she can help motivate or consult behavioral health Atrial ablation today unable to participate in therapies today (1) Myopathy (2) Atrial fibrillation with rapid ventricular response (3) Palpitations (4) Nausea (5) Headache (6) Atrial fibrillation (7) Iron deficiency (8) Fever (9) Urinary retention (10) Anemia (11) Depression (12) Dyspnea (13) Edema (14) Cardiac murmur (15) GERD (gastroesophageal reflux disease) (16) Cancer of spinal column (17) Debility (18) Late eff nerv injury trnk NEC (19) Leg weakness (20) Anticoagulant long-term use (21) Atrial fibrillation with rapid ventricular response (22) Transfusion of blood during current hospitalization (23) Self-catheterizes urinary bladder (24) Bacteremia due to Streptococcus (25) Fever (26) UTI (urinary tract infection) (27) UTI due to extended-spectrum beta lactamase (ESBL) producing Escherichia coli (28) Somatization disorder YURI MARSHALL DO October 19, 2018 10:29
--- NOTE | 2018-10-19 11:44 | Physical Therapy Progress Note ---
Therapy Progress Note Pt is not on floor at this time. Pt is in ICU from Ablation procedure yesterday. PT will resume when pt returns. no tx rendered SINGH OKEEFE PTA October 19, 2018 11:44
--- NOTE | 2018-10-19 12:30 | NUR ---
RECOVERY FROM CARDIAC ABLATION DONE IN ICU AND PATIENT TRANSFERRED BACK TO ROOM 222 BY DAUGHTER AND STAFF TO GET SHOES TO GO OUT ON DAY PASS. DAY PASS FOR TODAY HAS BEEN OKAY'D BY DRS. [place] AND JOANNA PER GIULIA RODRIGUEZ. LIABILITY RELEASE SIGNED. OUT TO CAR BY DAUGHTER AND NURSE AIDE.
--- NOTE | 2018-10-19 14:00 | NUR ---
10/18/18 ONE TIME DOSE OF ISUPREL AND MORPHINE GIVEN IN FOAM RUBBER MOLDER AND REMOVED FROM MAR.
--- NOTE | 2018-10-19 15:00 | NUR ---
RETURNED TO ROOM. DAUGHTER STATES DAY PASS WENT WELL. DID NOT USE RESTROOM AT HOME AND NOW INCONTINENT OF BOTH URINE AND STOOL.
[2018-10-19] MEDS: NITROFURANTOIN 100 MG (MACROBID) CAPSULE PO SCH ×2 (15:33→21:05)
[2018-10-19] MEDS: VITAMIN D3 1,000 UNITS (CHOLECALCIFEROL) TABLET PO SCH (15:34)
[2018-10-19] MEDS: DOCUSATE SODIUM 100 MG (COLACE) CAP PO SCH ×2 (15:35→20:53)
[2018-10-19] MEDS: POLYETHYLENE GLYCOL 17 GM (MIRALAX) PACK PO SCH ×2 (15:35→20:53)
[2018-10-19] MEDS: HYDROCHLOROTHIAZIDE 25 MG (HCTZ) TAB PO SCH (15:36)
[2018-10-19 15:45] VITALS: BP 116/66
[2018-10-19] MEDS: TAMSULOSIN 0.4 MG (FLOMAX) CAP PO SCH (17:57)
--- NOTE | 2018-10-19 18:00 | NUR ---
STATES NAUSEA IS BETTER SINCE HAVING REGULAR BOWEL MOVEMENTS. DOES FEEL LIKE THE BEST THING FOR HER IS ASSISTED LIVING.
[2018-10-19] MEDS: LOSARTAN 100 MG (COZAAR) TABLET PO SCH (21:05)
[2018-10-19] MEDS: DILTIAZEM 240 MG (CARDIZEM CD) CAP PO SCH (21:05)
[2018-10-20] MEDS: HYDROcodone/APAP 5 MG/325 MG (LORTAB) TAB PO PRN (03:20)
[2018-10-20] MEDS: PANTOPRAZOLE 40 MG (PROTONIX) VIAL IV SCH ×3 (05:54→21:15)
[2018-10-20] MEDS: BETHANECHOL 25 MG (URECHOLINE) TAB PO SCH ×4 (05:54→21:37)
[2018-10-20] MEDS: CATHETER FLUSH 10 ML SYR IV SCH ×3 (05:54→21:52)
[2018-10-20 05:59] VITALS: BP 114/73
[2018-10-20] MEDS: HYDROCHLOROTHIAZIDE 25 MG (HCTZ) TAB PO SCH (08:41)
[2018-10-20] MEDS: DOCUSATE SODIUM 100 MG (COLACE) CAP PO SCH ×2 (08:42→21:37)
[2018-10-20] MEDS: NITROFURANTOIN 100 MG (MACROBID) CAPSULE PO SCH (08:42)
[2018-10-20] MEDS: VITAMIN D3 1,000 UNITS (CHOLECALCIFEROL) TABLET PO SCH (08:42)
[2018-10-20] MEDS: SERTRALINE 50 MG (ZOLOFT) TABLET PO SCH ×2 (08:42→21:37)
[2018-10-20] MEDS: POLYETHYLENE GLYCOL 17 GM (MIRALAX) PACK PO SCH ×2 (08:44→21:15)
[2018-10-20] MEDS: ONDANSETRON 4 MG/2 ML (SDV) Z0FRAN IVP PRN (09:08)
--- NOTE | 2018-10-20 10:00 | NUR ---
Dr. Martinez here with orders to place on Telemetry for 24 hours.
--- NOTE | 2018-10-20 10:35 | PM&R Progress Note ---
Subjective HPI/CC On Admission Date Seen by Provider: October 20, 2018 Time Seen by Provider: 10:30 Chief complaint: Myopathy with debility. HPI: This is a 68[address] 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 Pt has also had some urinary retention, Dr. Greco has been consulted and recommended self caths once a day with bladder scanning as needed and due to all of the 14 days of hospital stay she has become very debilitated and prior level of functioning was independent with use of a cane and now she can only take a few steps to go to the toilet. She did have a low grade fever today, sepsis workup with laboratory was ordered by Dr. Mcfarland to assess for any type of sepsis but we will continue the workup with Dr. Sahu's help along with Dr. Mcfarland, Dr. Cheng and Dr. Greco while she is on the inpatient rehab unit prior to discharge home to live independently. Subjective/Events-last exam Atrial ablation yesterday at [address] Martinez and no complications Had a day pass for graduation ceremony and that really helped her morale Pt agrees for [facility] placement and will talk about that more tomorrow after therapy evaluates her Bowel movement fairly regular Conferred with RN Convinced that Protonix caused her N/V Tremors are improved since DC Amio and Reglan Reviewed therapy notes Appreciate Dr Martinez Very complex case Review of Systems General: Fatigue Neurological: Weakness, Numbness Objective Exam Vital Signs Vital Signs Date Time Temp Pulse Resp B/P (MAP) Pulse Ox O2 Delivery O2 Flow Rate FiO2 10/20/18 17:06 99.3 71 18 163/80 (107) 99 Room Air Capillary Refill : General Appearance: No Apparent Distress, Chronically ill, Thin HEENT: PERRL/EOMI, Normal ENT Inspection, Pharynx Normal, Moist Mucous Membranes Neck: Full Range of Motion, Normal Inspection, Non Tender, Supple Respiratory: Lungs Clear, Normal Breath Sounds, No Accessory Muscle Use, No Respiratory Distress Cardiovascular: Regular Rate, Rhythm, No Edema, Systolic Murmur Gastrointestinal: Normal Bowel Sounds, No Organomegaly, No Pulsatile Mass, Non Tender, Soft Back: Normal Inspection, No CVA Tenderness, No Vertebral Tenderness Extremity: Non Tender, No Calf Tenderness, No Pedal Edema Neurologic/Psychiatric: Alert, Oriented x3, Normal 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 FIM Transfers Therapy Code Descriptions/Definitions Functional [place] Measure: 0=Not Assessed/NA 4=Minimal Assistance 1=Total Assistance 5=Supervision or Setup 2=Maximal Assistance 6=Modified [place] 3=Moderate Assistance 7=Complete [place] Therapy Quality Codes: 6 Independent with activity with or without an assistive device 5 Patient requires set up or clean up by helper. Patient completes activity by themselves 4 Supervision or touching assist (CGA). [place] provide cues , steadying assist 3 The helper provides less than half the effort to complete the activity 2 The helper provides more than half the effort to complete the activity 1 Dependent. The helper does all the effort to complete an activity 7 Patient refused to complete or attempt activity 9 The patient did not perform the activity before the current illness or injury 88 Not attempted due to Medical conditions or safety concerns Transfers (B, C, W/C) (FIM): 4 Scootin Rollin Roll Left to Right (QC): 4 Supine to/from Sit: 4 Sit to/from Stand: 4 (low surface more difficult, needs pillow or cushion to raise height for CGA TRF) Sit to Lying (QC): 4 Sit to Stand (QC): 4 Chair/[id number] Xfer(QC): 3 (assist to move walker and to stabilize at gait belt) Bed to/from Chair: 4 Car Transfer (QC): 4 Gait Training Does the Patient Walk?: Yes Gait (FIM): 1 Distance (FIM): 1=up to 49 ft (12ftx2) Distance: 25' Walk 10 feet (QC): 4 Walk 50 ft with 2 Turns(QC): 88 (unable to walk this distance) Walk 150 ft (QC): 88 Walking 10ft/uneven surface-QC: 88 (unsafe to attempt at this time due to balance and strength deficits) Gait Level of Assist: 4 Gait Persons Needed: 1 Gait Assistive Device: FWW Wheelchair Training Does the Pt Use a Wheelchair?: Yes Wheelchair (FIM): 2 Wheelchair Distance: 9=142-09 ft (125ft, 100ft) Distance: 100' Wheelchair Level of Assist: 4 Wheel 50 ft with 2 turns (QC): 4 Type of Wheelchair: Manual Stair Training Stairs (FIM): 0 1 Step (curb) (QC): 88 4 Steps (QC): 88 12 Steps (QC): 88 Balance Picking up an Object (QC): 88 Mental Status/Objective Comprehension: 7 Expression: 7 Social Interaction: 7 Problem Solvin Memory: 7 ADL-Treatment Feedin (Set up) Eating (QC): 5 Groomin Oral Hygiene (QC): 4 Bathin Bathing Location: L Arm, R Arm, L Upper Leg, R Upper Leg, L Lower Leg ( including foot), R Lower Leg (including foot), Chest, Abdomen, Buttocks, Perineal Area Shower/Bathe Self (QC): 3 Upper Extremity Dressin Upper Body Dressing (QC): 5 Lower Extremity Dressin Lower Body Dressing (QC): 3 On/Off Footwear (QC): 6 Toiletin (CGA in standing to manipulate clothing. 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 Acute on chronic depression ESBL UTI Somatic complaints Mood disorder s/p atrial ablation POD # 1 Plan: IRF protocols Home meds maintained Nausea meds will continue Pain meds Ultram scheduled per PCP Dr Greco appreciated Self caths and bladder scan prn daily per Dr Greco orders if she complies BM regimen to be maintained since bowels are now moving well overall on schedule Appreciate Dr Mcfarland and Dr Greco and Dr Sahu and Dr Martinez Monitor labs Anticoagulation once no longer a risk for bleeding Nausea and depression addressed by PCP and much improved some days then other days not so much ESBL UTI with Macrobid to be completed Sleep study per Dr Cheng May need NH placement so will reach out to PCP to see if she can help motivate or consult behavioral health Atrial ablation yesterday (1) Myopathy (2) Atrial fibrillation with rapid ventricular response (3) Palpitations (4) Nausea (5) Headache (6) Atrial fibrillation (7) Iron deficiency (8) Fever (9) Urinary retention (10) Anemia (11) Depression (12) Dyspnea (13) Edema (14) Cardiac murmur (15) GERD (gastroesophageal reflux disease) (16) Cancer of spinal column (17) Debility (18) Late eff nerv injury trnk NEC (19) Leg weakness (20) Anticoagulant long-term use (21) Atrial fibrillation with rapid ventricular response (22) Transfusion of blood during current hospitalization (23) Self-catheterizes urinary bladder (24) Bacteremia due to Streptococcus (25) Fever (26) UTI (urinary tract infection) (27) UTI due to extended-spectrum beta lactamase (ESBL) producing Escherichia coli (28) Somatization disorder YURI MARSHALL DO October 20, 2018 10:35
--- NOTE | 2018-10-20 12:28 | NUR ---
Post void bladder scan- 265mls.
[2018-10-20] MEDS: TAMSULOSIN 0.4 MG (FLOMAX) CAP PO SCH (17:05)
[2018-10-20 17:06] VITALS: BP 163/80
--- NOTE | 2018-10-20 17:41 | Cardiology Progress Note ---
Cardiology SOAP Progress Note Subjective: No cardiac complaints. Objective: I&O/Vital Signs 10/20/18 10/20/18 10/20/18 10/20/18 05:59 09:12 13:31 17:06 Temp 98.4 99.3 Pulse 83 69 71 Resp 20 18 B/P (MAP) 114/73 (87) 163/80 (107) Pulse Ox 95 99 O2 Delivery Room Air Room Air Room Air 10/20/18 00:00 Intake Total 400 ml Balance 400 ml Weight (Pounds): 162 Weight (Ounces): 1.6 Weight (Calculated Kilograms): 73.987282 Constitutional: No appears stated age, No AAO x 3, No apparent distress, No PERRL, No well-developed, No well-nourished, No other Respiratory: No accessory muscle use, No respiratory distress, No chest tender , No chest expansion is symmetric; chest is bilaterally symmetric; No lungs clear to percussion; lungs clear to auscultation; No crackles, No rhonchi, No rales, No stridor, No wheezing, No pleural rub, No other Cardiovascular: regular rate-rhythm; No irregularly irregular, No extra beats, No parasternal heave is noted, No JVD, No edema, No bradycardia, No tachycardia , No point of maximal impulse, No cardiac thrills are palpable; S1 and S2; No gallop/S3, No gallop/S4, No diastolic murmur, No systolic murmur, No friction rub, No click, No other Gastrointestional: No tender, No soft, No round, No distended, No pulsatile mass, No organomegaly, No guarding, No rebound, No tenderness, No hernia, No mass, No audible bowel sounds, No abnormal bowel sounds, No abdominal bruits, No spleenomegaly, No other Extremities: No normal range of motion, No non-tender, No normal inspection, No pedal edema, No calf tenderness, No normal capillary refill, No pelvis stable , No calf tenderness, No inflammation, No pedal edema, No slow capillary refill , No swelling, No other, No abrasion, No clubbing, No cyanosis, No ecchymosis, No laceration, No no lower extremity edema bilateral, No significant edema, No tenderness, No wound Neurologic/Psychiatric: no motor/sensory deficits, alert, normal mood/affect, oriented x 3 Skin: pallor Results/Procedures: Labs Microbiology 10/10/18 Urine Culture - Final, Complete Escherichia coli A/P: Assessment/Dx: Typical atrial flutter, status post CTI ablation, Paroxysmal atrial fibrillation, Recent GI bleeding, UTI sepsis recent, ESBL. Plan: Typical atrial flutter, at least one episode which degenerated into atrial fibrillation. During typical atrial flutter Dr. Mcfarland gave adenosine which caused AV block and brought out for typical atrial flutter waves. I discussed at length with the patient, family, Dr. Mcfarland and Dr. Sahu and scheduled the patient for CTI dependent flutter ablation which was done on 10/18/2018. Successful bidirectional block during the procedure. Paroxysmal atrial fibrillation, currently in sinus rhythm. Amiodarone discontinued due to tremor. No oral anticoagulation due to recent GI bleeding. Consider other antiarrhythmic therapy. Recent GI bleeding, not on any anticoagulation at this point in time. Dr. Mcfarland following as well. ESBL Escherichia coli UTI, recovering. Recent sepsis. Thank you for your consultation. Please call me if you have any questions. Jay Martinez MD, FACP, FACC, FSCAI, FHRS, CCDS Interventional Cardiology Cardiac Electrophysiology Vascular Medicine and Endovascular Interventions Tracy MARTINEZ MD October 20, 2018 17:41
[2018-10-20] MEDS: LOSARTAN 100 MG (COZAAR) TABLET PO SCH (21:37)
[2018-10-20] MEDS: DILTIAZEM 240 MG (CARDIZEM CD) CAP PO SCH (21:37)
[2018-10-20] MEDS: ACETAMINOPHEN 500 MG TAB (TYLENOL) PO PRN (21:39)
--- NOTE | 2018-10-20 21:55 | NUR ---
Pt requests to use restroom. Pt moved to side of bed with just SBA and bed elevated to assist with standing. Pt stands with CGA and FWW. She ambulated to bathroom with just CGA-SBA. Pt able to pull pants and underwear down with just minimal assist. Pt voided 200 cc dark bianka urine and is able to do own ping-care and pull pants/brief up per self. Pt ambulated back to bed with CGA-SBA. Pt able to get legs into bed with just SBA from staff. Will cont to monitor.
[2018-10-21] MEDS: HYDROcodone/APAP 5 MG/325 MG (LORTAB) TAB PO PRN (04:55)
[2018-10-21] MEDS: PANTOPRAZOLE 40 MG (PROTONIX) VIAL IV SCH ×2 (04:56→21:10)
[2018-10-21] MEDS: CATHETER FLUSH 10 ML SYR IV SCH ×3 (04:56→21:28)
[2018-10-21] MEDS: BETHANECHOL 25 MG (URECHOLINE) TAB PO SCH ×4 (04:56→21:06)
--- NOTE | 2018-10-21 04:56 | NUR ---
Pt has refused pm and am IV protonix as she says it makes her nauseous. Will pass on to next shift.
[2018-10-21 05:32] VITALS: BP 116/65
[2018-10-21] MEDS: ONDANSETRON 4 MG/2 ML (SDV) Z0FRAN IVP PRN ×2 (07:55→12:04)
--- NOTE | 2018-10-21 08:22 | PM&R Progress Note ---
Subjective HPI/CC On Admission Date Seen by Provider: October 21, 2018 Time Seen by Provider: 08:30 Chief complaint: Myopathy with debility. HPI: This is a 68[address] 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 Pt has also had some urinary retention, Dr. Greco has been consulted and recommended self caths once a day with bladder scanning as needed and due to all of the 14 days of hospital stay she has become very debilitated and prior level of functioning was independent with use of a cane and now she can only take a few steps to go to the toilet. She did have a low grade fever today, sepsis workup with laboratory was ordered by Dr. Mcfarland to assess for any type of sepsis but we will continue the workup with Dr. Sahu's help along with Dr. Mcfarland, Dr. Cheng and Dr. Greco while she is on the inpatient rehab unit prior to discharge home to live independently. Subjective/Events-last exam Atrial ablation Sunday at [address] Martinez seems to have really made a difference in her overall clinical status Minimal assist with ambulation with walker today for the first time Pt agrees for long-term placement if she cannot maintain the pace her at IRF Bowel movements regular Conferred with RN Convinced that Protonix caused her N/V so will reach out to Dr Sahu and see what she recommends Tremors are improved since DC Amio and Reglan Reviewed therapy notes Appreciate Dr Martinez since it appears the ablation has improved her status in order to restart IRF intensity Very complex case Review of Systems Neurological: Weakness, Numbness, Incoordination Objective Exam Vital Signs Vital Signs Date Time Temp Pulse Resp B/P (MAP) Pulse Ox O2 Delivery O2 Flow Rate FiO2 10/21/18 07:00 61 10/21/18 05:32 97.9 18 116/65 (82) 98 Room Air Capillary Refill : General Appearance: No Apparent Distress, WD/WN, Chronically ill, Thin HEENT: PERRL/EOMI, Normal ENT Inspection, Pharynx Normal, Moist Mucous Membranes Neck: Full Range of Motion, Normal Inspection, Non Tender, Supple Respiratory: Lungs Clear, Normal Breath Sounds, No Accessory Muscle Use, No Respiratory Distress Cardiovascular: Regular Rate, Rhythm, No Edema, Systolic Murmur Gastrointestinal: Normal Bowel Sounds, No Organomegaly, No Pulsatile Mass, Non Tender, Soft Back: Normal Inspection, No CVA Tenderness, No Vertebral Tenderness Extremity: Non Tender, No Calf Tenderness, No Pedal Edema Neurologic/Psychiatric: Alert, Oriented x3, No Motor/Sensory Deficits, 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 FIM Transfers Therapy Code Descriptions/Definitions Functional [place] Measure: 0=Not Assessed/NA 4=Minimal Assistance 1=Total Assistance 5=Supervision or Setup 2=Maximal Assistance 6=Modified [place] 3=Moderate Assistance 7=Complete [place] Therapy Quality Codes: 6 Independent with activity with or without an assistive device 5 Patient requires set up or clean up by helper. Patient completes activity by themselves 4 Supervision or touching assist (CGA). [place] provide cues , steadying assist 3 The helper provides less than half the effort to complete the activity 2 The helper provides more than half the effort to complete the activity 1 Dependent. The helper does all the effort to complete an activity 7 Patient refused to complete or attempt activity 9 The patient did not perform the activity before the current illness or injury 88 Not attempted due to Medical conditions or safety concerns Transfers (B, C, W/C) (FIM): 4 Scootin Rollin Roll Left to Right (QC): 4 Supine to/from Sit: 4 Sit to/from Stand: 4 (low surface more difficult, needs pillow or cushion to raise height for CGA TRF) Sit to Lying (QC): 4 Sit to Stand (QC): 4 Chair/[id number]-Cmznb Xfer(QC): 3 (assist to move walker and to stabilize at gait belt) Bed to/from Chair: 4 Car Transfer (QC): 4 Gait Training Does the Patient Walk?: Yes Gait (FIM): 1 Distance (FIM): 1=up to 49 ft (12ftx2) Distance: 25' Walk 10 feet (QC): 4 Walk 50 ft with 2 Turns(QC): 88 (unable to walk this distance) Walk 150 ft (QC): 88 Walking 10ft/uneven surface-QC: 88 (unsafe to attempt at this time due to balance and strength deficits) Gait Level of Assist: 4 Gait Persons Needed: 1 Gait Assistive Device: FWW Wheelchair Training Does the Pt Use a Wheelchair?: Yes Wheelchair (FIM): 2 Wheelchair Distance: 8=057-90 ft (125ft, 100ft) Distance: 100' Wheelchair Level of Assist: 4 Wheel 50 ft with 2 turns (QC): 4 Type of Wheelchair: Manual Stair Training Stairs (FIM): 0 1 Step (curb) (QC): 88 4 Steps (QC): 88 12 Steps (QC): 88 Balance Picking up an Object (QC): 88 Mental Status/Objective Comprehension: 7 Expression: 7 Social Interaction: 7 Problem Solvin Memory: 7 ADL-Treatment Feedin (Set up) Eating (QC): 5 Groomin Oral Hygiene (QC): 4 Bathin Bathing Location: L Arm, R Arm, L Upper Leg, R Upper Leg, L Lower Leg ( including foot), R Lower Leg (including foot), Chest, Abdomen, Buttocks, Perineal Area Shower/Bathe Self (QC): 3 Upper Extremity Dressin Upper Body Dressing (QC): 5 Lower Extremity Dressin Lower Body Dressing (QC): 3 On/Off Footwear (QC): 6 Toiletin (CGA in standing to manipulate clothing. 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 Acute on chronic depression ESBL UTI Somatic complaints Mood disorder s/p atrial ablation POD # 2 Plan: IRF protocols Home meds maintained Nausea meds will continue and inquire with PCP regarding PPI IV causing the nausea Pain meds Ultram scheduled per PCP Dr Greco appreciated Self caths and bladder scan prn daily per Dr Greco orders if she complies BM regimen to be maintained since bowels are now moving well overall on schedule Appreciate Dr Mcfarland and Dr Greco and Dr Sahu and Dr Martinez Monitor labs Anticoagulation once no longer a risk for bleeding Nausea and depression addressed by PCP and much improved some days then other days not so much ESBL UTI with Macrobid is completed Sleep study per Dr Cheng May need NH placement if cannot maintain intensity of IRF but appears much improved and her stay in the unit may be salvaged Atrial ablation has improved her status tremendously (1) Myopathy (2) Atrial fibrillation with rapid ventricular response (3) Palpitations (4) Nausea (5) Headache (6) Atrial fibrillation (7) Iron deficiency (8) Fever (9) Urinary retention (10) Anemia (11) Depression (12) Dyspnea (13) Edema (14) Cardiac murmur (15) GERD (gastroesophageal reflux disease) (16) Cancer of spinal column (17) Debility (18) Late eff nerv injury trnk NEC (19) Leg weakness (20) Anticoagulant long-term use (21) Atrial fibrillation with rapid ventricular response (22) Transfusion of blood during current hospitalization (23) Self-catheterizes urinary bladder (24) Bacteremia due to Streptococcus (25) Fever (26) UTI (urinary tract infection) (27) UTI due to extended-spectrum beta lactamase (ESBL) producing Escherichia coli (28) Somatization disorder YURI MARSHALL DO October 21, 2018 08:22
--- NOTE | 2018-10-21 08:33 | Cardiology Progress Note ---
Subjective Date Seen by Provider: October 21, 2018 Time Seen by Provider: 08:31 Subjective/Events-last exam Patient is sitting up in chair, continues to complain of nausea. Denies any chest pain or dyspnea. Objective-Cardiology Exam Last Set of Vital Signs Vital Signs 10/21/18 10/21/18 05:32 07:00 Temp 97.9 Pulse 61 Resp 18 B/P (MAP) 116/65 (82) Pulse Ox 98 O2 Delivery Room Air Capillary Refill : I&O Intake and Output 10/20/18 23:59 Intake Total 900 ml Output Total 500 ml Balance 400 ml Intake Oral 900 ml Output Urine Total 500 ml Bladder Scan Volume Amount 265 ml # Voids 3 # Urine Diapers 1 General: Alert, Oriented X3, Cooperative HEENT: Atraumatic, PERRLA Neck: Supple, No JVD, No Thyromegaly Lungs: Clear to Auscultation, Normal Air Movement Heart: Regular Rate, Normal S1, Normal S2, Other (SM at LSB) Abdomen: Normal Bowel Sounds, Soft, No Tenderness, No Hepatosplenomegaly, No Masses Extremities: No Clubbing, No Cyanosis, No Edema, Normal Pulses, No Tenderness/ Swelling Skin: No Rashes, No Breakdown, No Significant Lesion Neuro: Normal Gait, Normal Speech, Strength at 5/5 X4 Ext, Normal Tone, Sensation Intact Psych/Mental Status: Mental Status NL, Mood NL A/P-Cardiology Admission Diagnosis Strep bacteremia Atrial fibrillation/flutter Anemia Generalized debility Assessment/Plan Status post Streptococcus bacteremia, fever and chills and generalized weakness , started on Rocephin and vancomycin, managed by primary care physician, TITUS done 09/23/18 revealed mild with no vegetation to valves, received Rocephin for 11 days last dose on 10/04, received 4 days of Vanco. Better at this time, continue to monitor ESBL UTI- on antibiotic, management per PCP Hypertension, controlled, continue to monitor. Generalized debility/weakness- continue PT Paroxysmal atrial fibrillation/flutter, s/p atrial flutter ablation done by Dr. Martinez on 10/18/18. Intolerant to amiodarone secondary to nausea and tremors, currently SR, continue to monitor. Anemia, has been on iron supplement, s/p blood transfusion. Currently off all OAC. EGD/colonoscopy done revealed no active bleeding, continue to monitor H&H History of chronic anticoagulation, had GI bleed on Pradaxa, intolerant to Coumadin. Xarelto was discontinued secondary to worsening anemia History of multiple episodes of GI bleed. Had workup done by Dr. Alberts and she was restarted on Xarelto, stopped for now and monitor H&H, reportedly had AVM as a source of the intermittent GI bleed Questionable underlying sleep apnea, Dr. Cheng following. Status post iron transfusion with questionable allergic reaction, had similar reaction to different iron product with generalized weakness and generalized body ache, has been managed by Dr. Nicholas History of abnormal baseline EKG with first-degree AV block and right bundle branch block, right ventricular hypertrophy pattern. History of syncope while on atenolol was unable to tolerate the medication in the past. History of pancreatic nodule, had workup with Dr. Alberts Family history of CVA Clinical Quality Measures DVT/VTE Risk/Contraindication: Risk Factor Score Per Nursin RFS Level Per Nursing on Admit: 2=Moderate RUBIO KOHLI October 21, 2018 08:33
[2018-10-21] MEDS: HYDROCHLOROTHIAZIDE 25 MG (HCTZ) TAB PO SCH (09:00)
[2018-10-21] MEDS: VITAMIN D3 1,000 UNITS (CHOLECALCIFEROL) TABLET PO SCH (09:00)
--- NOTE | 2018-10-21 09:17 | NUR ---
Patient has had small amount of clear emesis this morning, along with Dry Heaving. IV Zofran given. Dr. Parker notified at rounds. Dr. Parker requests to give Dr. Sahu an update on patient. Dr. Sahu ordered a Flat and Upright Xray of Abdomen and would like patient to be encouraged to take IV Protonix due to history of bleeding ulcer in the past.
--- NOTE | 2018-10-21 09:44 | Cardiology Progress Note ---
Subjective Date Seen by Provider: October 21, 2018 Time Seen by Provider: 09:41 Subjective/Events-last exam patient is receiving physical therapy, complaining of nausea and dry heaves. Review of Systems General: No Chills, No Night Sweats; Fatigue; No Malaise, No Appetite, No Other HEENT: No Head Aches, No Visual Changes, No Eye Pain, No Ear Pain, No Dysphasia , No Sinus Congestion, No Post Nasal Drip, No Sore Throat, No Other Pulmonary: No Dyspnea, No Cough, No Pleuritic Chest Pain, No Other Cardiovascular: No: Chest Pain, Palpitations, Orthopnea, Paroxysmal Noc. Dyspnea, Edema, Lt Headedness, Other Objective-Cardiology Exam Last Set of Vital Signs Vital Signs 10/21/18 10/21/18 05:32 07:00 Temp 97.9 Pulse 61 Resp 18 B/P (MAP) 116/65 (82) Pulse Ox 98 O2 Delivery Room Air Capillary Refill : I&O Intake and Output 10/21/18 00:00 Intake Total 900 ml Output Total 500 ml Balance 400 ml Intake Oral 900 ml Output Urine Total 500 ml Bladder Scan Volume Amount 265 ml # Voids 3 # Urine Diapers 1 General: Alert, Oriented X3, Cooperative HEENT: Atraumatic, PERRLA Neck: Supple, No JVD, No Thyromegaly Lungs: Clear to Auscultation, Normal Air Movement Heart: Regular Rate, Normal S1, Normal S2, Other (SM at LSB) Abdomen: Normal Bowel Sounds, Soft, No Tenderness, No Hepatosplenomegaly, No Masses Extremities: No Clubbing, No Cyanosis, No Edema, Normal Pulses, No Tenderness/ Swelling Skin: No Rashes, No Breakdown, No Significant Lesion Neuro: Normal Gait, Normal Speech, Strength at 5/5 X4 Ext, Normal Tone, Sensation Intact Psych/Mental Status: Mental Status NL, Mood NL A/P-Cardiology Admission Diagnosis Strep bacteremia Atrial fibrillation/flutter Anemia Generalized debility Assessment/Plan Status post Streptococcus bacteremia, fever and chills and generalized weakness , started on Rocephin and vancomycin, managed by primary care physician, TITUS done 09/23/18 revealed mild with no vegetation to valves, received Rocephin for 11 days last dose on 10/04, received 4 days of Vanco. Better at this time, continue to monitor ESBL UTI- on antibiotic, management per PCP Hypertension, controlled, continue to monitor. Generalized debility/weakness- continue PT Paroxysmal atrial fibrillation/flutter, s/p atrial flutter ablation done by Dr. Martinez on 10/18/18. Intolerant to amiodarone secondary to nausea and tremors, currently SR, still having significant nausea, workup is in progress. Anemia, has been on iron supplement, s/p blood transfusion. Currently off all OAC. EGD/colonoscopy done revealed no active bleeding, continue to monitor H&H History of chronic anticoagulation, had GI bleed on Pradaxa, intolerant to Coumadin. Xarelto was discontinued secondary to worsening anemia History of multiple episodes of GI bleed. Had workup done by Dr. Alberts and she was restarted on Xarelto, stopped for now and monitor H&H, reportedly had AVM as a source of the intermittent GI bleed Questionable underlying sleep apnea, Dr. Cheng following. Status post iron transfusion with questionable allergic reaction, had similar reaction to different iron product with generalized weakness and generalized body ache, has been managed by Dr. Nicholas History of abnormal baseline EKG with first-degree AV block and right bundle branch block, right ventricular hypertrophy pattern. History of syncope while on atenolol was unable to tolerate the medication in the past. History of pancreatic nodule, had workup with Dr. Alberts Family history of CVA Clinical Quality Measures DVT/VTE Risk/Contraindication: Risk Factor Score Per Nursin RFS Level Per Nursing on Admit: 2=Moderate DAMON CLAUDIO MD October 21, 2018 09:44
--- NOTE | 2018-10-21 10:03 | Physical Therapy Daily Note ---
PT Daily Note-Current Subjective Pt. states she had a great weekend with her family and felt better after , more positive. Pt. having significant problem with N&V this morning. Appearance up ,alert awake, more motivated Mental Status Patient Orientation: Normal For Age Transfers Therapy Code Descriptions/Definitions Functional [place] Measure: 0=Not Assessed/NA 4=Minimal Assistance 1=Total Assistance 5=Supervision or Setup 2=Maximal Assistance 6=Modified [place] 3=Moderate Assistance 7=Complete [place] Therapy Quality Codes: 6 Independent with activity with or without an assistive device 5 Patient requires set up or clean up by helper. Patient completes activity by themselves 4 Supervision or touching assist (CGA). [place] provide cues , steadying assist 3 The helper provides less than half the effort to complete the activity 2 The helper provides more than half the effort to complete the activity 1 Dependent. The helper does all the effort to complete an activity 7 Patient refused to complete or attempt activity 9 The patient did not perform the activity before the current illness or injury 88 Not attempted due to Medical conditions or safety concerns Transfers (B, C, W/C) (FIM): 5 Scootin Rollin Supine to/from Sit: 5 Sit to/from Stand: 5 Weight Bearing Right Lower Extremity: Right Full Weight Bearing Left Lower Extremity: Left Full Weight Bearing Gait Training Does the Patient Walk?: Yes Gait (FIM): 2 Distance (FIM): 5=827-97 ft (50ftx3) Gait Level of Assist: 4 Gait Persons Needed: 1 Gait Assistive Device: FWW instructed in wider CARLOS for turning and safety Wheelchair Training Does the Pt Use a Wheelchair?: Yes Wheelchair (FIM): 3 Wheelchair Distance: 3=150 ft (150, 100,50) Wheelchair Level of Assist: 5 Type of Wheelchair: Manual improved w/c mob, better following directions etc, safer Exercises Seated Therapy Exercises: Ankle pumps, Sit to stand, Long arc quads, Hip flexion, Hip abd/add Seated Reps: 15 NuStep Minutes: 10 NuStep Workload: 2 Assessment Current Status: Good Progress N&V limit pt. participation this Rx. Pt. consulting with Physicians and will have XR and scheduled protonix to begin soon PT Short Term Goals Short Term Goals Time Frame: October 14, 2018 Transfers (B,C,W/C) (FIM): 5 Gait (FIM): 2 Distance (FIM): 7=348-03 ft Gait Assistive Device: FWW Wheelchair Distance: 100' PT Sand Molder Goals [facility] Goals PT [place] M[place] Goals Time Frame: October 25, 2018 Transfers (B,C,W/C) (FIM): 7 Sit to Lying (QC): 6 Lying-Sitting on Side/Bed(QC): 6 Sit to Stand (QC): 6 Rollin Roll Left to Right (QC): 6 Chair/Zja-sx-Wwzmr Xfer(QC): 6 Car Transfer (QC): 6 Does the Patient Walk: Yes Gait (FIM): 6 Gait distance (FIM): 3=150 ft Walk 10 feet (QC): 6 Walk 10ft-Uneven Surface(QC): 5 Walk 50ft with 2 Turns (QC): 6 Walk 150 ft (QC): 6 Gait Assistive Device: FWW Does the Pt use WC or Scooter?: No Stairs (FIM): 2 # of Steps: 1 1 Step (curb) (QC): 6 4 Steps (QC): 88 12 Steps (QC): 88 Picking up an Object (QC): 88 PT Plan Treatment/Plan Treatment Plan: Continue Plan of Care Treatment Plan: Bed Mobility, Education, Functional Activity Rafia, Functional Strength, Group Therapy, Gait, Safety, Therapeutic Exercise, Transfers Treatment Duration: October 25, 2018 Frequency: At least 5 of 7 days/Wk (IRF) Estimated Hrs Per Day: 1.5 hours per day Patient and/or Family Agrees t: Yes Safety Risks/Education Patient Education: Gait Training, Transfer Techniques, Correct Positioning, W/ C Management, Disease Process, Safety Issues Teaching Recipient: Patient Teaching Methods: Demonstration, Discussion Response to Teaching: Verbalize Understanding, Return Demonstration, Reinforcement Needed Time/GCodes Time In: 900 Time Out: 1000 Total Billed Treatment Time: 60 Total Billed Treatment 1,w/c15m,GT15m,FA15m,EX15m G Codes Necessary: EYAL Ross SLITTER OPERATOR October 21, 2018 10:03
--- NOTE | 2018-10-21 10:42 | Occupational Ther Daily Note ---
OT Current Status-Daily Note Subjective Pt alert, sitting in w/c. Pt agrees to therapy. Then states that she is waiting on x-ray to see if she has ulcers. Pt c/o fatigue and nausea. Does not want to move around much. Mental Status/Objective Patient Orientation: Person, Place, Time, Situation Therapy Code Descriptions/Definitions Functional [place] Measure: 0=Not Assessed/NA 4=Minimal Assistance 1=Total Assistance 5=Supervision or Setup 2=Maximal Assistance 6=Modified [place] 3=Moderate Assistance 7=Complete [place] Attachments: IV (midline) ADL-Treatment Discussed pt having shower today. Pt stated that she has had only sponge bath yesterday, but she also does not want to move as much as a shower would be. Pt then stated that she had already cleaned her ping area/buttocks after toileting then completed grooming prior to therapies because she wanted to be ready. Pt then stated that she had clean clothing on. X-ray tech transported pt to x- ray. Pt returned to room. Pt declined shower at this time or any other ADLs. Therapy Code Descriptions/Definitions Functional [place] Measure: 0=Not Assessed/NA 4=Minimal Assistance 1=Total Assistance 5=Supervision or Setup 2=Maximal Assistance 6=Modified [place] 3=Moderate Assistance 7=Complete [place] Therapy Quality Codes: 6 Independent with activity with or without an assistive device 5 Patient requires set up or clean up by helper. Patient completes activity by themselves 4 Supervision or touching assist (CGA). [place] provide cues , steadying assist 3 The helper provides less than half the effort to complete the activity 2 The helper provides more than half the effort to complete the activity 1 Dependent. The helper does all the effort to complete an activity 7 Patient refused to complete or attempt activity 9 The patient did not perform the activity before the current illness or injury 88 Not attempted due to Medical conditions or safety concerns Other Treatment Pt transported to therapy gym with w/c. Pt took increased time to complete tasks due to nausea and decreased activity tolerance. Arm bike completed without resistance for 15 min to increased activity tolerance and strength for daily functional tasks. Then completed resistive pegs, 50 each hand, to increase glass blower helper/pinch strength for dressing. Pt transported with w/c to room then pt ambulated with CGA to bed and was able to transfer into bed with SBA. Pt c/o continuing to feel nauseated and asked if nrsg would come in with meds for it. Reported to nrsg and nrsg will check. After therapy, pt lying in bed with call light/phone in reach. All needs met in room. OT Short Term Goals Short Term Goals Time Frame: October 21, 2018 Eating(FIM): 5 Grooming(FIM): 5 Bathing(FIM): 5 Upper Body Dressing(FIM): 5 Lower Body Dressing(FIM): 5 Toileting(FIM): 5 Transfers (B,C,W/C) (FIM): 5 Toilet/Commode Transfer(FIM): 5 Shower Transfer(FIM): 4 Additional Short Term Goals: 1-Demonstrate ADL Tasks, 2-Verbalize Understanding , 3-ImproveStrength/Rafia 1=Demonstrate adherence to instructed precautions during ADL tasks. 2=Patient will verbalize/demonstrate understanding of assistive devices/ modifications for ADL. 3=Patient will improve strength/tolerance for activity to enable patient to perform ADL's. OT Detention Goals Detention Goals Time Frame: November 04, 2018 Eating (FIM): 6 Eating (QC): 6 Groomin Oral Hygiene (QC): 6 Bathing(FIM): 5 Shower/Bathe Self (QC): 5 Upper Body Dressing(FIM): 6 Upper Body Dressing (QC): 6 Lower Body Dressing(FIM): 6 Lower Body Dressing (QC): 6 On/Off Footwear (QC): 6 Toileting(FIM): 6 Toileting Hygiene (QC): 6 Transfers (B,C,W/C) (FIM): 6 Toilet/Commode Transfer(FIM): 6 Toilet/Commode Transfer (QC): 6 Shower Transfer(FIM): 5 Additional Goals: 1-Demonstrate ADL Tasks, 2-Verbalize Understanding, 3- ImproveStrength/Rafia 1=Demonstrate adherence to instructed precautions during ADL tasks. 2=Patient will verbalize/demonstrate understanding of assistive devices/ modifications for ADL. 3=Patient will improve strength/tolerance for activity to enable patient to perform ADL's. OT Education/Plan Problem List/Assessment Assessment: Decreased Activ Tolerance, Decreased UE Strength, Impaired Funct Balance, Impaired Self-Care Skills Discharge Recommendations Plan/Recommendations: Continue POC Treatment Plan/Plan of Care Patient would benefit from OT for education, treatment and training to promote independence in ADL's, mobility, safety and/or upper extremity function for ADL' s. Plan of Care: ADL Retraining, Functional Mobility, Group Exercise/Act as Ind, UE Funct Exercise/Act Treatment Duration: November 04, 2018 Frequency: At least 5 of 7 days/Wk (IRF) Estimated Hrs Per Day: 1.5 hours per day Agreement: Yes Rehab Potential: Fair Time/GCodes Start Time: 10:15 ([id number]) Stop Time: 12:00 ([id number]) Total Time Billed (hr/min): 90 Billed Treatment Time 2 visit-FA 1 (15 min) EX 5 (75 min) MAXIMINO FERGUSON October 21, 2018 10:42
--- NOTE | 2018-10-21 11:08 | NUR ---
ARMATURE CONNECTOR met with RN and therapy to review patient's progress. Patient continues to feel nauseated with dry heaving; however, has appeared more motivated. The nausea remains to be a barrier for tolerating the intensity of therapy. As previous discussed with patient and family, ARMATURE CONNECTOR proceeded with sending a referral to [facility]. Addendum: 10/21/18 at 1149 by DAGO ROSS ARMATURE CONNECTOR received confirmation from Ellen at [facility] of ability to accept patient for SNF placement when stable for discharge. Addendum: 10/21/18 at 1639 by DAGO MANRIQUE SS Per therapy patient was able to participate more today and was capable of making therapeutic gains. Based on this new insight, team will plan to reevaluate progress at team conference on 515. Patient is agreeable to this and eager to continue to progress.
[2018-10-21] MEDS ORDERED: SENNA W/DOCUSATE (SENOKOT S) TABLET PO NR (13:00)
[2018-10-21] MEDS ORDERED: MILK OF MAGNESIA 400 MG/5 ML 30 ML UDC PO NR (13:00)
--- NOTE | 2018-10-21 13:06 | Physical Therapy Daily Note ---
PT Daily Note-Current Subjective Pt. agrees to Rx. States she doesnt remember some things from last week. Glad to be feeling better Pain Location: No Pain Reported Mental Status Patient Orientation: Person, Place, Time, Situation Transfers Therapy Code Descriptions/Definitions Functional [place] Measure: 0=Not Assessed/NA 4=Minimal Assistance 1=Total Assistance 5=Supervision or Setup 2=Maximal Assistance 6=Modified [place] 3=Moderate Assistance 7=Complete [place] Therapy Quality Codes: 6 Independent with activity with or without an assistive device 5 Patient requires set up or clean up by helper. Patient completes activity by themselves 4 Supervision or touching assist (CGA). [place] provide cues , steadying assist 3 The helper provides less than half the effort to complete the activity 2 The helper provides more than half the effort to complete the activity 1 Dependent. The helper does all the effort to complete an activity 7 Patient refused to complete or attempt activity 9 The patient did not perform the activity before the current illness or injury 88 Not attempted due to Medical conditions or safety concerns Transfers (B, C, W/C) (FIM): 5 Scootin Rollin Supine to/from Sit: 6 Sit to/from Stand: 5 Weight Bearing Right Lower Extremity: Right Full Weight Bearing Left Lower Extremity: Left Full Weight Bearing Gait Training Does the Patient Walk?: Yes Gait (FIM): 2 Distance (FIM): 3=730-84 ft (50, 55, 60) Gait Level of Assist: 4 Gait Persons Needed: 1 Gait Assistive Device: FWW improved stability in gait, instruction for improved broader CARLOS Exercises Supine Ex: Ankle pumps, Quad Set, Heel Slides, Short Arc Quads, Scooting, Hip abd/add Supine Reps: 12 Seated Therapy Exercises: Ankle pumps, Sit to stand, Long arc quads, Shoulder Abd, Hip abd/add Seated Reps: 15 Assessment Current Status: Good Progress improved overall PT Short Term Goals Short Term Goals Time Frame: October 14, 2018 Transfers (B,C,W/C) (FIM): 5 Gait (FIM): 2 Distance (FIM): 6=443-95 ft Gait Assistive Device: FWW Wheelchair Distance: 100' PT Freight Coordinator Goals Freight Coordinator Goals PT [facility] Goals Time Frame: October 25, 2018 Transfers (B,C,W/C) (FIM): 7 Sit to Lying (QC): 6 Lying-Sitting on Side/Bed(QC): 6 Sit to Stand (QC): 6 Rollin Roll Left to Right (QC): 6 Chair/Dew-wm-Pxpat Xfer(QC): 6 Car Transfer (QC): 6 Does the Patient Walk: Yes Gait (FIM): 6 Gait distance (FIM): 3=150 ft Walk 10 feet (QC): 6 Walk 10ft-Uneven Surface(QC): 5 Walk 50ft with 2 Turns (QC): 6 Walk 150 ft (QC): 6 Gait Assistive Device: FWW Does the Pt use WC or Scooter?: No Stairs (FIM): 2 # of Steps: 1 1 Step (curb) (QC): 6 4 Steps (QC): 88 12 Steps (QC): 88 Picking up an Object (QC): 88 PT Plan Treatment/Plan Treatment Plan: Continue Plan of Care Treatment Plan: Bed Mobility, Education, Functional Activity Rafia, Functional Strength, Group Therapy, Gait, Safety, Therapeutic Exercise, Transfers Treatment Duration: October 25, 2018 Frequency: At least 5 of 7 days/Wk (IRF) Estimated Hrs Per Day: 1.5 hours per day Patient and/or Family Agrees t: Yes Safety Risks/Education Patient Education: Gait Training, Transfer Techniques, Correct Positioning, Safety Issues Teaching Recipient: Patient Teaching Methods: Demonstration, Discussion Response to Teaching: Verbalize Understanding, Return Demonstration, Reinforcement Needed Time/GCodes Time In: 1230 Time Out: 1300 Total Billed Treatment Time: 30 Total Billed Treatment 1,GT15m,EX15m G Codes Necessary: EYAL Ross FURNITURE REPRODUCER October 21, 2018 13:05
[2018-10-21] MEDS: ACETAMINOPHEN 325 MG TABLET PO SCH ×2 (14:20→21:07)
[2018-10-21] MEDS: SERTRALINE 50 MG (ZOLOFT) TABLET PO SCH ×2 (14:20→21:07)
[2018-10-21] MEDS: POLYETHYLENE GLYCOL 17 GM (MIRALAX) PACK PO SCH ×2 (14:22→21:10)
--- NOTE | 2018-10-21 14:56 | Diagnostic Imaging Report ---
INDICATION: Nausea and vomiting. TIME OF EXAM: 10:36 AM FINDINGS: There are surgical clips in the right upper quadrant. No definite free air is identified. Nonspecific mild small bowel gaseous distention is seen in the central abdomen. The colon is decompressed. No pathologic calcifications are seen. Extensive lumbar spinal surgery and decompression laminectomies noted. IMPRESSION: Nonspecific bowel gas pattern with mildly prominent small bowel loops centrally, perhaps owing to ileus. No free air is seen. No other significant abnormality is detected. Dictated by: Dictated on workstation # [id number]
--- NOTE | 2018-10-21 17:00 | Cardiology Progress Note ---
Cardiology SOAP Progress Note Subjective: No cardiac complaints. Objective: I&O/Vital Signs 10/21/18 10/21/18 10/21/18 10/21/18 05:32 07:00 09:00 12:43 Temp 97.9 Pulse 63 61 75 Resp 18 B/P (MAP) 116/65 (82) Pulse Ox 98 O2 Delivery Room Air Room Air 10/21/18 00:00 Intake Total 500 ml Output Total 500 ml Balance 0 ml Weight (Pounds): 160 Weight (Ounces): 13.1 Weight (Calculated Kilograms): [id number] Constitutional: No appears stated age, No AAO x 3, No apparent distress, No PERRL, No well-developed, No well-nourished, No other Respiratory: No accessory muscle use, No respiratory distress, No chest tender , No chest expansion is symmetric; chest is bilaterally symmetric; No lungs clear to percussion; lungs clear to auscultation; No crackles, No rhonchi, No rales, No stridor, No wheezing, No pleural rub, No other Cardiovascular: regular rate-rhythm; No irregularly irregular, No extra beats, No parasternal heave is noted, No JVD, No edema, No bradycardia, No tachycardia , No point of maximal impulse, No cardiac thrills are palpable; S1 and S2; No gallop/S3, No gallop/S4, No diastolic murmur, No systolic murmur, No friction rub, No click, No other Gastrointestional: No tender, No soft, No round, No distended, No pulsatile mass, No organomegaly, No guarding, No rebound, No tenderness, No hernia, No mass, No audible bowel sounds, No abnormal bowel sounds, No abdominal bruits, No spleenomegaly, No other Extremities: No normal range of motion, No non-tender, No normal inspection, No pedal edema, No calf tenderness, No normal capillary refill, No pelvis stable , No calf tenderness, No inflammation, No pedal edema, No slow capillary refill , No swelling, No other, No abrasion, No clubbing, No cyanosis, No ecchymosis, No laceration, No no lower extremity edema bilateral, No significant edema, No tenderness, No wound Neurologic/Psychiatric: no motor/sensory deficits, alert, normal mood/affect, oriented x 3 Skin: pallor Results/Procedures: Labs Microbiology 10/10/18 Urine Culture - Final, Complete Escherichia coli A/P: Assessment/Dx: Typical atrial flutter, status post CTI ablation, Paroxysmal atrial fibrillation, Recent GI bleeding, UTI sepsis recent, ESBL. Plan: Typical atrial flutter, at least one episode which degenerated into atrial fibrillation. During typical atrial flutter Dr. Mcfarland gave adenosine which caused AV block and brought out for typical atrial flutter waves. I discussed at length with the patient, family, Dr. Mcfarland and Dr. Sahu and scheduled the patient for CTI dependent flutter ablation which was done on 10/18/2018. Successful bidirectional block during the procedure. Paroxysmal atrial fibrillation, currently in sinus rhythm. Amiodarone discontinued due to tremor. No oral anticoagulation due to recent GI bleeding. Consider other antiarrhythmic therapy; was restarted on propafenone. I did discuss with the patient and daughter about left atrial appendage closure as a therapy to prevent stroke in a patient with paroxysmal atrial fibrillation who cannot take oral anticoagulation. Recent GI bleeding, not on any anticoagulation at this point in time. Dr. Mcfarland following as well. ESBL Escherichia coli UTI, recovering. Recent sepsis. Thank you for your consultation. Please call me if you have any questions. Jay Martinez MD, FACP, FACC, FSCAI, FHRS, CCDS Interventional Cardiology Cardiac Electrophysiology Vascular Medicine and Endovascular Interventions Tracy MARTINEZ MD October 21, 2018 5:00 pm
[2018-10-21 18:00] VITALS: BP 145/77
--- NOTE | 2018-10-21 19:02 | Progress Note-Urology ---
Progress Note-Urology Progress Notes/Assess & Plan Progress/Assessment & Plan CONTINUES WELL KOTHARI NEEDING STRAIGHT CATH EVERY 3-4 DAYS. WHEN DISCHARGED, RECOMMEND HHC TO VISIT EVERY 3 DAYS AND PRN FOR STRAIGHT CATH PVR AND MANAGE ACCORDINGLY. KEEP HER ON FLOMAX AND URECHOLINE Final Diagnosis URINE RETENTION KEITH LYNN MD October 21, 2018 19:02
--- NOTE | 2018-10-21 20:40 | Progress Note (SOAP) ---
Subjective Date Seen by a Provider: October 21, 2018 Time Seen by a Provider: 12:30 Subjective/Events-last exam Fwup beta strep bacteremia, paroxysmal atrial fibrillation, chronic anemia, IV iron transfusion reaction, weakness, colonic polyps, history of AVMs on capsule endoscopy, urinary retention, nausea, constipation. Had right sided heart ablation 3 days ago. Dry heaves this morning but has been participating more in therapies. Objective Exam Vital Signs Date Time Temp Pulse Resp B/P (MAP) Pulse Ox O2 Delivery O2 Flow Rate FiO2 10/21/18 18:00 98.5 66 18 145/77 (99) 100 Room Air 10/21/18 12:43 75 10/21/18 09:00 Room Air 10/21/18 07:00 61 10/21/18 05:32 97.9 63 18 116/65 (82) 98 Room Air 10/21/18 01:03 70 10/20/18 21:00 Room Air I & O 10/21/18 07:00 Intake Total 850 ml Output Total 950 ml Balance -100 ml Capillary Refill : General Appearance: No Apparent Distress Neck: Supple Respiratory: Lungs Clear Cardiovascular: Regular Rate, Rhythm, Systolic Murmur Gastrointestinal: normal bowel sounds, non tender, soft Extremity: Non Tender, No Calf Tenderness, No Pedal Edema Neurologic/Psychiatric: Alert, Oriented x3 Results Lab Microbiology 10/10/18 Urine Culture - Final, Complete Escherichia coli Assessment/Plan Assessment/Plan Assess & Plan/Chief Complaint 1. Recent Strep Bacteremia--resolved 2. Paroxyxmal Atrial Fibrillation--back in NSR, amiodarone DCed due to side effects, anticoagulants on hold due to anemia, S/P right heart ablation 3. Iron Deficiency Anemia--H/H improved post transfusion and with hold of anticoagulants--Hgb stable 4. Hypertension--stable 5. Urinary Retention--on urecholine and flomax and improved but will DC flomax to try to decrease pill burden and improve nausea 6. Weakness--PT/OT but not participating or progressing 7. Nausea--using zofran prn 8. Constipation-patient has been refusing miralax but KUB shows stool and gas throughout colon 9. ESBL positive UTI--on Macrobid Clinical Quality Measures DVT/VTE Risk/Contraindication: Risk Factor Score Per Nursin RFS Level Per Nursing on Admit: 2=Moderate ANTHONY PERDOMO DO October 21, 2018 20:40
[2018-10-21] MEDS: DILTIAZEM 240 MG (CARDIZEM CD) CAP PO SCH (21:06)
[2018-10-21] MEDS: SENNA W/DOCUSATE (SENOKOT S) TABLET PO SCH (21:07)
[2018-10-21] MEDS: LOSARTAN 100 MG (COZAAR) TABLET PO SCH (21:07)
[2018-10-22] MEDS: ONDANSETRON 4 MG/2 ML (SDV) Z0FRAN IVP PRN ×2 (04:19→20:47)
[2018-10-22] MEDS: CATHETER FLUSH 10 ML SYR IV SCH ×3 (05:20→21:32)
[2018-10-22] MEDS: PANTOPRAZOLE 40 MG (PROTONIX) VIAL IV SCH ×2 (05:32→21:23)
[2018-10-22] MEDS: BETHANECHOL 25 MG (URECHOLINE) TAB PO SCH ×4 (05:32→21:25)
[2018-10-22] MEDS: ACETAMINOPHEN 325 MG TABLET PO SCH ×3 (05:38→23:09)
[2018-10-22 05:52] VITALS: BP 121/70
--- NOTE | 2018-10-22 07:10 | Pulmonary Progress Note ---
Subjective Time Seen by a Provider: 08:09 Subjective/Events-last exam Denies SOB or coughing Sepsis Event Evaluation Height, Weight, BMI Height: 5'5.00" Weight: 160lbs. 13.1oz. [id number]; 29.0 BMI Method:Stated Exam Exam Vital Signs Date Time Temp Pulse Resp B/P (MAP) Pulse Ox O2 Delivery O2 Flow Rate FiO2 10/22/18 05:52 98.6 83 18 121/70 (87) 96 Room Air 10/21/18 21:07 Room Air 10/21/18 18:00 98.5 66 18 145/77 (99) 100 Room Air 10/21/18 12:43 75 10/21/18 09:00 Room Air I & O 10/22/18 07:00 Intake Total 650 ml Output Total 600 ml Balance 50 ml Height & Weight Height: 5'5.00" Weight: 160lbs. 13.1oz. 72.231842sp; 29.0 BMI Method:Stated General Appearance: No Apparent Distress HEENT: PERRL/EOMI, Normal ENT Inspection, Pharynx Normal, Moist Mucous Membranes Neck: Supple Respiratory: Lungs Clear Cardiovascular: Regular Rate, Rhythm, Systolic Murmur Gastrointestinal: normal bowel sounds, non tender, soft Extremity: Non Tender, No Calf Tenderness, No Pedal Edema Neurologic/Psychiatric: Alert, Oriented x3 Skin: Warm/Dry Lymphatic: No Adenopathy Assessment/Plan Assessment/Plan SHEFALI with Snoring, EDS, nocturnal hypoxia - -PSG was done in hospital 09/22/18 -will need home CPAP Afib -Dr. Martinez is following and is planning EP study with atrial flutter ablation as an outpatient -Amiodarone HTN Anemia s/p 2 units of PRBC Urinary rentention GERD/PUD ROSA LOPEZ DO October 22, 2018 07:10
[2018-10-22] MEDS: VITAMIN D3 1,000 UNITS (CHOLECALCIFEROL) TABLET PO SCH (08:10)
[2018-10-22] MEDS: SENNA W/DOCUSATE (SENOKOT S) TABLET PO SCH ×2 (08:10→21:27)
[2018-10-22] MEDS: SERTRALINE 50 MG (ZOLOFT) TABLET PO SCH ×2 (08:10→21:27)
[2018-10-22] MEDS: HYDROCHLOROTHIAZIDE 25 MG (HCTZ) TAB PO SCH (08:10)
--- NOTE | 2018-10-22 08:14 | Cardiology Progress Note ---
Subjective Date Seen by Provider: October 22, 2018 Time Seen by Provider: 08:13 Subjective/Events-last exam Patient is sitting up in bed, states nausea improved some after having BM. Denies any chest pain or palpitations. Objective-Cardiology Exam Last Set of Vital Signs Vital Signs 10/22/18 05:52 Temp 98.6 Pulse 83 Resp 18 B/P (MAP) 121/70 (87) Pulse Ox 96 O2 Delivery Room Air Capillary Refill : I&O Intake and Output 10/22/18 00:00 Intake Total 650 ml Output Total 1050 ml Balance -400 ml Intake Oral 650 ml Output Urine Total 1050 ml Bladder Scan Volume Amount 474 ml # Voids 1 # Urine Diapers 2 General: Alert, Oriented X3, Cooperative HEENT: Atraumatic, PERRLA Neck: Supple, No JVD, No Thyromegaly Lungs: Clear to Auscultation, Normal Air Movement Heart: Regular Rate, Normal S1, Normal S2, Other (SM at LSB) Abdomen: Normal Bowel Sounds, Soft, No Tenderness, No Hepatosplenomegaly, No Masses Extremities: No Clubbing, No Cyanosis, No Edema, Normal Pulses, No Tenderness/ Swelling Skin: No Rashes, No Breakdown, No Significant Lesion Neuro: Normal Gait, Normal Speech, Strength at 5/5 X4 Ext, Normal Tone, Sensation Intact Psych/Mental Status: Mental Status NL, Mood NL A/P-Cardiology Admission Diagnosis Strep bacteremia Atrial fibrillation/flutter Anemia Generalized debility Assessment/Plan Status post Streptococcus bacteremia, fever and chills and generalized weakness , started on Rocephin and vancomycin, managed by primary care physician, TITUS done 09/23/18 revealed mild with no vegetation to valves, received Rocephin for 11 days last dose on 10/04, received 4 days of Vanco. Better at this time, continue to monitor ESBL UTI- on antibiotic, management per PCP Hypertension, controlled, continue to monitor. Generalized debility/weakness- continue PT Paroxysmal atrial fibrillation/flutter, s/p atrial flutter ablation done by Dr. Martinez on 10/18/18. Intolerant to amiodarone secondary to nausea and tremors, currently SR, nausea somewhat improved today, continue to monitor. Anemia, has been on iron supplement, s/p blood transfusion. Currently off all OAC. EGD/colonoscopy done revealed no active bleeding, continue to monitor H&H History of chronic anticoagulation, had GI bleed on Pradaxa, intolerant to Coumadin. Xarelto was discontinued secondary to worsening anemia History of multiple episodes of GI bleed. Had workup done by Dr. Alberts and she was restarted on Xarelto, stopped for now and monitor H&H, reportedly had AVM as a source of the intermittent GI bleed Questionable underlying sleep apnea, Dr. Cheng following. Status post iron transfusion with questionable allergic reaction, had similar reaction to different iron product with generalized weakness and generalized body ache, has been managed by Dr. Nicholas History of abnormal baseline EKG with first-degree AV block and right bundle branch block, right ventricular hypertrophy pattern. History of syncope while on atenolol was unable to tolerate the medication in the past. History of pancreatic nodule, had workup with Dr. Alberts Family history of CVA Clinical Quality Measures DVT/VTE Risk/Contraindication: Risk Factor Score Per Nursin RFS Level Per Nursing on Admit: 2=Moderate RUBIO KOHLI October 22, 2018 08:14
--- NOTE | 2018-10-22 08:29 | PM&R Progress Note ---
Subjective HPI/CC On Admission Date Seen by Provider: October 22, 2018 Time Seen by Provider: 08:30 Chief complaint: Myopathy with debility. HPI: This is a 68[address] 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 Pt has also had some urinary retention, Dr. Greco has been consulted and recommended self caths once a day with bladder scanning as needed and due to all of the 14 days of hospital stay she has become very debilitated and prior level of functioning was independent with use of a cane and now she can only take a few steps to go to the toilet. She did have a low grade fever today, sepsis workup with laboratory was ordered by Dr. Mcfarland to assess for any type of sepsis but we will continue the workup with Dr. Sahu's help along with Dr. Mcfarland, Dr. Cheng and Dr. Greco while she is on the inpatient rehab unit prior to discharge home to live independently. Subjective/Events-last exam KUB checked ileus noted which was early in the ileus stage so PCP gave multiple meds, she is having diarrhea now but doing much better. Overall feels very negative and her entire outlook seems to be chronically negative but she appears to be doing very well since the atrial ablation. Reports minimal pain on schedule Ultram. Conferred with RN. Reviewed therapy notes. It appears she may very well succeed in inpatient rehab now after getting close to being discharged on Sunday to a fpc. Review of Systems General: Fatigue Neurological: Weakness Objective Exam Vital Signs Vital Signs Date Time Temp Pulse Resp B/P (MAP) Pulse Ox O2 Delivery O2 Flow Rate FiO2 10/22/18 17:13 78 10/22/18 17:04 99.0 18 116/76 (89) 100 Room Air Capillary Refill : General Appearance: No Apparent Distress HEENT: PERRL/EOMI, Normal ENT Inspection, Pharynx Normal, Moist Mucous Membranes Neck: Supple Respiratory: Lungs Clear Cardiovascular: Regular Rate, Rhythm, Systolic Murmur Gastrointestinal: Normal Bowel Sounds, No Organomegaly, No Pulsatile Mass, Non Tender, Soft Back: Normal Inspection, No CVA Tenderness, No Vertebral Tenderness Extremity: Non Tender, No Calf Tenderness, No Pedal Edema Neurologic/Psychiatric: Alert, Oriented x3 Skin: Warm/Dry Lymphatic: No Adenopathy Results/Procedures Lab Patient resulted labs reviewed. FIM Transfers Therapy Code Descriptions/Definitions Functional Leon Measure: 0=Not Assessed/NA 4=Minimal Assistance 1=Total Assistance 5=Supervision or Setup 2=Maximal Assistance 6=Modified Leon 3=Moderate Assistance 7=Complete Leon Therapy Quality Codes: 6 Independent with activity with or without an assistive device 5 Patient requires set up or clean up by helper. Patient completes activity by themselves 4 Supervision or touching assist (CGA). [place] provide cues , steadying assist 3 The helper provides less than half the effort to complete the activity 2 The helper provides more than half the effort to complete the activity 1 Dependent. The helper does all the effort to complete an activity 7 Patient refused to complete or attempt activity 9 The patient did not perform the activity before the current illness or injury 88 Not attempted due to Medical conditions or safety concerns Transfers (B, C, W/C) (FIM): 5 Scootin Rollin Roll Left to Right (QC): 4 Supine to/from Sit: 6 Sit to/from Stand: 5 Sit to Lying (QC): 4 Sit to Stand (QC): 4 Chair/Ris-dg-Ennom Xfer(QC): 3 (assist to move walker and to stabilize at gait belt) Bed to/from Chair: 4 Car Transfer (QC): 4 Gait Training Does the Patient Walk?: Yes Gait (FIM): 2 Distance (FIM): 3=004-94 ft (50, 55, 60) Distance: 25' Walk 10 feet (QC): 4 Walk 50 ft with 2 Turns(QC): 88 (unable to walk this distance) Walk 150 ft (QC): 88 Walking 10ft/uneven surface-QC: 88 (unsafe to attempt at this time due to balance and strength deficits) Gait Level of Assist: 4 Gait Persons Needed: 1 Gait Assistive Device: FWW Wheelchair Training Does the Pt Use a Wheelchair?: Yes Wheelchair (FIM): 3 Wheelchair Distance: 3=150 ft (150, 100,50) Distance: 100' Wheelchair Level of Assist: 5 Wheel 50 ft with 2 turns (QC): 4 Type of Wheelchair: Manual Stair Training Stairs (FIM): 0 1 Step (curb) (QC): 88 4 Steps (QC): 88 12 Steps (QC): 88 Balance Picking up an Object (QC): 88 Mental Status/Objective Comprehension: 7 Expression: 7 Social Interaction: 7 Problem Solvin Memory: 7 ADL-Treatment Feedin (Set up) Eating (QC): 5 Groomin Oral Hygiene (QC): 4 Bathin Bathing Location: L Arm, R Arm, L Upper Leg, R Upper Leg, L Lower Leg ( including foot), R Lower Leg (including foot), Chest, Abdomen, Buttocks, Perineal Area Shower/Bathe Self (QC): 3 Upper Extremity Dressin Upper Body Dressing (QC): 5 Lower Extremity Dressin Lower Body Dressing (QC): 3 On/Off Footwear (QC): 6 Toiletin (CGA in standing to manipulate clothing. 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 Acute on chronic depression ESBL UTI Somatic complaints Mood disorder s/p atrial ablation POD # 2 Plan: IRF protocols Home meds maintained Nausea meds will continue and inquire with PCP regarding PPI IV causing the nausea Pain meds Ultram scheduled per PCP Dr Greco appreciated Self caths and bladder scan prn daily per Dr Greco orders if she complies BM regimen to be maintained since bowels are now moving well overall on schedule Appreciate Dr Mcfarland and Dr Greco and Dr Sahu and Dr Martinez Monitor labs Anticoagulation once no longer a risk for bleeding Nausea and depression addressed by PCP and much improved some days then other days not so much ESBL UTI with Macrobid is completed Sleep study per Dr Cheng May need NH placement if cannot maintain intensity of IRF but appears much improved and her stay in the unit may be salvaged Atrial ablation has improved her status tremendously (1) Myopathy (2) Atrial fibrillation with rapid ventricular response (3) Palpitations (4) Nausea (5) Headache (6) Atrial fibrillation (7) Iron deficiency (8) Fever (9) Urinary retention (10) Anemia (11) Depression (12) Dyspnea (13) Edema (14) Cardiac murmur (15) GERD (gastroesophageal reflux disease) (16) Cancer of spinal column (17) Debility (18) Late eff nerv injury trnk NEC (19) Leg weakness (20) Anticoagulant long-term use (21) Atrial fibrillation with rapid ventricular response (22) Transfusion of blood during current hospitalization (23) Self-catheterizes urinary bladder (24) Bacteremia due to Streptococcus (25) Fever (26) UTI (urinary tract infection) (27) UTI due to extended-spectrum beta lactamase (ESBL) producing Escherichia coli (28) Somatization disorder YURI MARSHALL DO October 22, 2018 08:29
[2018-10-22] MEDS: POLYETHYLENE GLYCOL 17 GM (MIRALAX) PACK PO SCH ×2 (09:13→21:26)
--- NOTE | 2018-10-22 10:03 | Physical Therapy Daily Note ---
PT Daily Note-Current Subjective PtL sidelying upon arrival. Nurse present and advised pt had a little nausea and diarrhea this morning. Pt agrees to PT. Mental Status Patient Orientation: Person, Place, Situation Transfers Therapy Code Descriptions/Definitions Functional Avis Measure: 0=Not Assessed/NA 4=Minimal Assistance 1=Total Assistance 5=Supervision or Setup 2=Maximal Assistance 6=Modified Avis 3=Moderate Assistance 7=Complete Avis Therapy Quality Codes: 6 Independent with activity with or without an assistive device 5 Patient requires set up or clean up by helper. Patient completes activity by themselves 4 Supervision or touching assist (CGA). [place] provide cues , steadying assist 3 The helper provides less than half the effort to complete the activity 2 The helper provides more than half the effort to complete the activity 1 Dependent. The helper does all the effort to complete an activity 7 Patient refused to complete or attempt activity 9 The patient did not perform the activity before the current illness or injury 88 Not attempted due to Medical conditions or safety concerns Scootin Supine to/from Sit: 5 Sit to/from Stand: 4 Sit to Stand (QC): 4 Weight Bearing Right Lower Extremity: Right Full Weight Bearing Left Lower Extremity: Left Full Weight Bearing Gait Training Does the Patient Walk?: Yes Gait (FIM): 3 Distance (FIM): 3=150 ft Distance: 200' Walk 10 feet (QC): 4 Walk 50 ft with 2 Turns(QC): 4 Walk 150 ft (QC): 3 Gait Level of Assist: 4 Gait Assistive Device: FWW Pt loses balance a couple of times during ambulation and [employer] has to assist. Wheelchair Training Does the Pt Use a Wheelchair?: No Treatments Pt transfers from bed to EOB to don pants then stands. Pt needs to use restroom due to loose bowels. Pt ambulates in hallway and [facility] with a couple of RBs due to fatigue. Pt returns to room to use restroom again. Pt resting at end of tx with all needs met. Assessment Current Status: Good Progress Pt is in better spirits and increased focus to get better. Pt still struggling with fatigue with ambulation and frequent trips to restroom tires pt for tx. PT Short Term Goals Short Term Goals Time Frame: October 14, 2018 Transfers (B,C,W/C) (FIM): 5 Gait (FIM): 2 Distance (FIM): 1=094-22 ft Gait Assistive Device: FWW Wheelchair Distance: 100' PT Intermediate Goals Intermediate Goals PT Intermediate Goals Time Frame: October 25, 2018 Transfers (B,C,W/C) (FIM): 7 Sit to Lying (QC): 6 Lying-Sitting on Side/Bed(QC): 6 Sit to Stand (QC): 6 Rollin Roll Left to Right (QC): 6 Chair/Kjg-hv-Mircy Xfer(QC): 6 Car Transfer (QC): 6 Does the Patient Walk: Yes Gait (FIM): 6 Gait distance (FIM): 3=150 ft Walk 10 feet (QC): 6 Walk 10ft-Uneven Surface(QC): 5 Walk 50ft with 2 Turns (QC): 6 Walk 150 ft (QC): 6 Gait Assistive Device: FWW Does the Pt use WC or Scooter?: No Stairs (FIM): 2 # of Steps: 1 1 Step (curb) (QC): 6 4 Steps (QC): 88 12 Steps (QC): 88 Picking up an Object (QC): 88 PT Plan Problem List Problem List: Activity Tolerance, Functional Strength, Safety, Balance, Gait Treatment/Plan Treatment Plan: Continue Plan of Care Treatment Plan: Bed Mobility, Education, Functional Activity Rafia, Functional Strength, Group Therapy, Gait, Safety, Therapeutic Exercise, Transfers Treatment Duration: October 25, 2018 Frequency: At least 5 of 7 days/Wk (IRF) Estimated Hrs Per Day: 1.5 hours per day Patient and/or Family Agrees t: Yes Safety Risks/Education Patient Education: Gait Training, Transfer Techniques, Correct Positioning, Safety Issues Teaching Recipient: Patient Teaching Methods: Discussion Response to Teaching: Verbalize Understanding Time/GCodes Time In: 800 Time Out: 900 Total Billed Treatment Time: 60 Total Billed Treatment 1, FA x2 (30m) & GT x2 (30m) G Codes Necessary: SINGH Jeffries PTA October 22, 2018 10:03
--- NOTE | 2018-10-22 11:06 | Cardiology Progress Note ---
Cardiology SOAP Progress Note Subjective: No cardiac complaints. Objective: I&O/Vital Signs 10/22/18 10/22/18 05:52 09:21 Temp 98.6 Pulse 83 Resp 18 B/P (MAP) 121/70 (87) Pulse Ox 96 O2 Delivery Room Air Room Air 10/21/18 23:59 Intake Total 300 ml Output Total 600 ml Balance -300 ml Weight (Pounds): 160 Weight (Ounces): 13.1 Weight (Calculated Kilograms): 72.078735 Constitutional: No appears stated age, No AAO x 3, No apparent distress, No PERRL, No well-developed, No well-nourished, No other Respiratory: No accessory muscle use, No respiratory distress, No chest tender , No chest expansion is symmetric; chest is bilaterally symmetric; No lungs clear to percussion; lungs clear to auscultation; No crackles, No rhonchi, No rales, No stridor, No wheezing, No pleural rub, No other Cardiovascular: regular rate-rhythm; No irregularly irregular, No extra beats, No parasternal heave is noted, No JVD, No edema, No bradycardia, No tachycardia , No point of maximal impulse, No cardiac thrills are palpable; S1 and S2; No gallop/S3, No gallop/S4, No diastolic murmur, No systolic murmur, No friction rub, No click, No other Gastrointestional: No tender, No soft, No round, No distended, No pulsatile mass, No organomegaly, No guarding, No rebound, No tenderness, No hernia, No mass, No audible bowel sounds, No abnormal bowel sounds, No abdominal bruits, No spleenomegaly, No other Extremities: No normal range of motion, No non-tender, No normal inspection, No pedal edema, No calf tenderness, No normal capillary refill, No pelvis stable , No calf tenderness, No inflammation, No pedal edema, No slow capillary refill , No swelling, No other, No abrasion, No clubbing, No cyanosis, No ecchymosis, No laceration, No no lower extremity edema bilateral, No significant edema, No tenderness, No wound Neurologic/Psychiatric: no motor/sensory deficits, alert, normal mood/affect, oriented x 3 Skin: pallor Results/Procedures: Labs Microbiology 10/10/18 Urine Culture - Final, Complete Escherichia coli A/P: Assessment/Dx: Typical atrial flutter, status post CTI ablation, Paroxysmal atrial fibrillation, Recent GI bleeding, UTI sepsis recent, ESBL. Plan: Typical atrial flutter, at least one episode which degenerated into atrial fibrillation. During typical atrial flutter Dr. Mcfarland gave adenosine which caused AV block and brought out for typical atrial flutter waves. I discussed at length with the patient, family, Dr. Mcfarland and Dr. Sahu and scheduled the patient for CTI dependent flutter ablation which was done on 10/18/2018. Successful bidirectional block during the procedure. Paroxysmal atrial fibrillation, currently in sinus rhythm. Amiodarone discontinued due to tremor. No oral anticoagulation due to recent GI bleeding. Consider other antiarrhythmic therapy; was restarted on propafenone. I did discuss with the patient and daughter about left atrial appendage closure as a therapy to prevent stroke in a patient with paroxysmal atrial fibrillation who cannot take oral anticoagulation. Recent GI bleeding, not on any anticoagulation at this point in time. Dr. Mcfarland following as well. ESBL Escherichia coli UTI, recovering. Recent sepsis. Thank you for your consultation. Please call me if you have any questions. Jay Martinez MD, FACP, FACC, FSCAI, FHRS, CCDS Interventional Cardiology Cardiac Electrophysiology Vascular Medicine and Endovascular Interventions Tracy MARTINEZ MD October 22, 2018 11:06
--- NOTE | 2018-10-22 13:07 | Cardiology Progress Note ---
Subjective Date Seen by Provider: October 22, 2018 Time Seen by Provider: 13:06 Subjective/Events-last exam Patient was seen and evaluated, she was laying down in bed, feeling better, her nausea is better today. Review of Systems General: No Chills, No Night Sweats, No Fatigue, No Malaise, No Appetite, No Other HEENT: No Head Aches, No Visual Changes, No Eye Pain, No Ear Pain, No Dysphasia , No Sinus Congestion, No Post Nasal Drip, No Sore Throat, No Other Pulmonary: No Dyspnea, No Cough, No Pleuritic Chest Pain, No Other Objective-Cardiology Exam Last Set of Vital Signs Vital Signs 10/22/18 10/22/18 05:52 09:21 Temp 98.6 Pulse 83 Resp 18 B/P (MAP) 121/70 (87) Pulse Ox 96 O2 Delivery Room Air Capillary Refill : I&O Intake and Output 10/22/18 00:00 Intake Total 650 ml Output Total 1050 ml Balance -400 ml Intake Oral 650 ml Output Urine Total 1050 ml Bladder Scan Volume Amount 474 ml # Voids 1 # Urine Diapers 2 General: Alert, Oriented X3, Cooperative HEENT: Atraumatic, PERRLA Neck: Supple, No JVD, No Thyromegaly Lungs: Clear to Auscultation, Normal Air Movement Heart: Regular Rate, Normal S1, Normal S2, Other (SM at LSB) Abdomen: Normal Bowel Sounds, Soft, No Tenderness, No Hepatosplenomegaly, No Masses Extremities: No Clubbing, No Cyanosis, No Edema, Normal Pulses, No Tenderness/ Swelling Skin: No Rashes, No Breakdown, No Significant Lesion Neuro: Normal Gait, Normal Speech, Strength at 5/5 X4 Ext, Normal Tone, Sensation Intact Psych/Mental Status: Mental Status NL, Mood NL A/P-Cardiology Admission Diagnosis Strep bacteremia Atrial fibrillation/flutter Anemia Generalized debility Assessment/Plan Status post Streptococcus bacteremia, fever and chills and generalized weakness , started on Rocephin and vancomycin, managed by primary care physician, TITUS done 09/23/18 revealed mild with no vegetation to valves, received Rocephin for 11 days last dose on 10/04, received 4 days of Vanco. Better at this time, continue to monitor ESBL UTI- on antibiotic, management per PCP Hypertension, controlled, continue to monitor. Generalized debility/weakness- continue PT Paroxysmal atrial fibrillation/flutter, s/p atrial flutter ablation done by Dr. Martinez on 10/18/18. Intolerant to amiodarone secondary to nausea and tremors, currently SR, nausea somewhat improved today, continue to monitor. Anemia, has been on iron supplement, s/p blood transfusion. Currently off all OAC. EGD/colonoscopy done revealed no active bleeding, continue to monitor H&H History of chronic anticoagulation, had GI bleed on Pradaxa, intolerant to Coumadin. Xarelto was discontinued secondary to worsening anemia History of multiple episodes of GI bleed. Had workup done by Dr. Alberts and she was restarted on Xarelto, stopped for now and monitor H&H, reportedly had AVM as a source of the intermittent GI bleed Questionable underlying sleep apnea, Dr. Cheng following. Status post iron transfusion with questionable allergic reaction, had similar reaction to different iron product with generalized weakness and generalized body ache, has been managed by Dr. Nicholas History of abnormal baseline EKG with first-degree AV block and right bundle branch block, right ventricular hypertrophy pattern. History of syncope while on atenolol was unable to tolerate the medication in the past. History of pancreatic nodule, had workup with Dr. Alberts Family history of CVA Clinical Quality Measures DVT/VTE Risk/Contraindication: Risk Factor Score Per Nursin RFS Level Per Nursing on Admit: 2=Moderate DAMON CLAUDIO MD October 22, 2018 1:06 pm
--- NOTE | 2018-10-22 13:16 | Occupational Ther Daily Note ---
OT Current Status-Daily Note Subjective No pain reported. Appearance Pt. in bed. Agrees to work with OT. Mental Status/Objective Patient Orientation: Person, Place, Time, Situation Therapy Code Descriptions/Definitions Functional [place] Measure: 0=Not Assessed/NA 4=Minimal Assistance 1=Total Assistance 5=Supervision or Setup 2=Maximal Assistance 6=Modified [place] 3=Moderate Assistance 7=Complete [place] Attachments: IV ADL-Treatment Therapy Code Descriptions/Definitions Functional [place] Measure: 0=Not Assessed/NA 4=Minimal Assistance 1=Total Assistance 5=Supervision or Setup 2=Maximal Assistance 6=Modified [place] 3=Moderate Assistance 7=Complete [place] Therapy Quality Codes: 6 Independent with activity with or without an assistive device 5 Patient requires set up or clean up by helper. Patient completes activity by themselves 4 Supervision or touching assist (CGA). [place] provide cues , steadying assist 3 The helper provides less than half the effort to complete the activity 2 The helper provides more than half the effort to complete the activity 1 Dependent. The helper does all the effort to complete an activity 7 Patient refused to complete or attempt activity 9 The patient did not perform the activity before the current illness or injury 88 Not attempted due to Medical conditions or safety concerns Grooming (FIM): 5 (Set up in chair to blow dry and fix hair.) Bathing (FIM): 4 (CGA in stance to dry all parts.) Shower/Bathe Self (QC): 4 Upper Body (FIM): 5 Upper Body Dressing (QC): 4 Lower Body Dressing (FIM): 4 (CGA/Min assist in stance to pull pants over hips. ) Lower Body Dressing (QC): 4 On/Off Footwear (QC): 4 Toileting (FIM): 4 (CGA in stance to cleanse rear ping area.) Toileting Hygiene (QC): 4 Transfers (B, C, W/C) (FIM): 4 (Min assist for balance for sit-stand and ambulation.) Toilet/Commode Transfer (FIM): 4 Toilet Transfer (QC): 4 Shower Transfer(FIM): 4 Other Treatment Pt. agrees to work with OT. Ambulates into bathroom to perform ADLs. After ADLs, pt. ambulates to chair in room to fix hair. After this, agrees to ambulate to therapy gym. Ambulated with walker and CGA to therapy gym. Tolerated 10 minutes on armbike at min resistance to work on overall endurance. Pt. participated in trivia task for cognitive memory while performing armbike. Pt. tolerated this well. Pt. encouraged to do more for herself this date, such as putting on her own blankets, pushing out her own chair when getting up, etc.... All needs met back in room. Education OT Patient Education: Correct positioning, Exercise program, Modified ADL techniques, Progress toward Goal/Update tx plan, Purpose of tx/functional activities, Reviewed precautions, Rehab process, Transfer techniques Teaching Recipient: Patient Teaching Methods: Demonstration, Discussion Response to Teaching: Verbalize Understanding, Return Demonstration OT Short Term Goals Short Term Goals Time Frame: October 21, 2018 Eating(FIM): 5 Grooming(FIM): 5 Bathing(FIM): 5 Upper Body Dressing(FIM): 5 Lower Body Dressing(FIM): 5 Toileting(FIM): 5 Transfers (B,C,W/C) (FIM): 5 Toilet/Commode Transfer(FIM): 5 Shower Transfer(FIM): 4 Additional Short Term Goals: 1-Demonstrate ADL Tasks, 2-Verbalize Understanding , 3-ImproveStrength/Rafia 1=Demonstrate adherence to instructed precautions during ADL tasks. 2=Patient will verbalize/demonstrate understanding of assistive devices/ modifications for ADL. 3=Patient will improve strength/tolerance for activity to enable patient to perform ADL's. OT Vp Treasurer Goals [facility] Goals Time Frame: November 04, 2018 Eating (FIM): 6 Eating (QC): 6 Groomin Oral Hygiene (QC): 6 Bathing(FIM): 5 Shower/Bathe Self (QC): 5 Upper Body Dressing(FIM): 6 Upper Body Dressing (QC): 6 Lower Body Dressing(FIM): 6 Lower Body Dressing (QC): 6 On/Off Footwear (QC): 6 Toileting(FIM): 6 Toileting Hygiene (QC): 6 Transfers (B,C,W/C) (FIM): 6 Toilet/Commode Transfer(FIM): 6 Toilet/Commode Transfer (QC): 6 Shower Transfer(FIM): 5 Additional Goals: 1-Demonstrate ADL Tasks, 2-Verbalize Understanding, 3- ImproveStrength/Rafia 1=Demonstrate adherence to instructed precautions during ADL tasks. 2=Patient will verbalize/demonstrate understanding of assistive devices/ modifications for ADL. 3=Patient will improve strength/tolerance for activity to enable patient to perform ADL's. OT Education/Plan Problem List/Assessment Assessment: Decreased Activ Tolerance, Dependent Transfers, Impaired Funct Balance, Impaired I ADL's, Impaired Self-Care Skills Discharge Recommendations Plan/Recommendations: Continue POC Treatment Plan/Plan of Care Treatment,Training & Education: Yes Patient would benefit from OT for education, treatment and training to promote independence in ADL's, mobility, safety and/or upper extremity function for ADL' s. Plan of Care: ADL Retraining, Functional Mobility, Group Exercise/Act as Ind, UE Funct Exercise/Act Treatment Duration: November 04, 2018 Frequency: At least 5 of 7 days/Wk (IRF) Estimated Hrs Per Day: 1.5 hours per day Agreement: Yes Rehab Potential: Fair Time/GCodes Start Time: 10:45 Stop Time: 12:15 Total Time Billed (hr/min): 90 Billed Treatment Time 1, ADL x 60minutes, Ex x 30minutes SADE YATES OT October 22, 2018 13:15
--- NOTE | 2018-10-22 15:48 | Physical Therapy Daily Note ---
PT Daily Note-Current Subjective Pt laying Supine in bed upon arrival. Pt agrees to PT but reports some fatigue. Mental Status Patient Orientation: Person, Place, Situation Transfers Therapy Code Descriptions/Definitions Functional [place] Measure: 0=Not Assessed/NA 4=Minimal Assistance 1=Total Assistance 5=Supervision or Setup 2=Maximal Assistance 6=Modified [place] 3=Moderate Assistance 7=Complete [place] Therapy Quality Codes: 6 Independent with activity with or without an assistive device 5 Patient requires set up or clean up by helper. Patient completes activity by themselves 4 Supervision or touching assist (CGA). [place] provide cues , steadying assist 3 The helper provides less than half the effort to complete the activity 2 The helper provides more than half the effort to complete the activity 1 Dependent. The helper does all the effort to complete an activity 7 Patient refused to complete or attempt activity 9 The patient did not perform the activity before the current illness or injury 88 Not attempted due to Medical conditions or safety concerns Weight Bearing Right Lower Extremity: Right Full Weight Bearing Left Lower Extremity: Left Full Weight Bearing Exercises Supine Ex: Ankle pumps, Quad Set, Glut sets, Heel Slides, Straight leg raise, Hip abd/add Supine Reps: 15 Treatments Pt completes Supine Ex in bed with a couple of RB as needed. Pt also asks about her progress, likelihood of D/C to home vs SNF, variations to meal planning that could be changed to make transition to home easier. IN CLASSROOM TUTOR advised Weekly ARU Mtg is tomorrow (10/23) and should know more then. Pt at this point has made great progress, although was advised that not ready to be home alone all day. Pt will continue to work with PT as long as pt is on ARU. Pt has all needs met. Assessment Current Status: Fair Progress Pt more fatigued this afternoon. Pt is not retaining/remembering conversations from previous tx and will often have same conversations multiple times. Pt is inconsistent at times with performance of PT. PT Short Term Goals Short Term Goals Time Frame: October 14, 2018 Transfers (B,C,W/C) (FIM): 5 Gait (FIM): 2 Distance (FIM): 2=020-45 ft Gait Assistive Device: FWW Wheelchair Distance: 100' PT Fpc Goals Tank Shop Supervisor Goals PT Fpc Goals Time Frame: October 25, 2018 Transfers (B,C,W/C) (FIM): 7 Sit to Lying (QC): 6 Lying-Sitting on Side/Bed(QC): 6 Sit to Stand (QC): 6 Rollin Roll Left to Right (QC): 6 Chair/Zpy-tn-Otnre Xfer(QC): 6 Car Transfer (QC): 6 Does the Patient Walk: Yes Gait (FIM): 6 Gait distance (FIM): 3=150 ft Walk 10 feet (QC): 6 Walk 10ft-Uneven Surface(QC): 5 Walk 50ft with 2 Turns (QC): 6 Walk 150 ft (QC): 6 Gait Assistive Device: FWW Does the Pt use WC or Scooter?: No Stairs (FIM): 2 # of Steps: 1 1 Step (curb) (QC): 6 4 Steps (QC): 88 12 Steps (QC): 88 Picking up an Object (QC): 88 PT Plan Problem List Problem List: Activity Tolerance, Functional Strength, Safety, Balance, Gait, Transfer Treatment/Plan Treatment Plan: Continue Plan of Care Treatment Plan: Bed Mobility, Education, Functional Activity Rafia, Functional Strength, Group Therapy, Gait, Safety, Therapeutic Exercise, Transfers Treatment Duration: October 25, 2018 Frequency: At least 5 of 7 days/Wk (IRF) Estimated Hrs Per Day: 1.5 hours per day Patient and/or Family Agrees t: Yes Safety Risks/Education Patient Education: Gait Training, Transfer Techniques, Correct Positioning, Safety Issues Teaching Recipient: Patient Teaching Methods: Discussion Response to Teaching: Verbalize Understanding Time/GCodes Time In: 1300 Time Out: 1330 Total Billed Treatment Time: 30 Total Billed Treatment 1, EX (20m) & FA (10m) G Codes Necessary: SINGH Jeffries PTA October 22, 2018 15:48
--- NOTE | 2018-10-22 16:10 | NUR ---
C/O heart "beating hard". Patient states "it feels like this when I'm in AFIB". HR is irregular. EKG done. SR with Mobitz 2 AV block and right BBB. Rate of 93. Picture of EKG sent to Dr. Mcfarland and Dr. Martinez. Orders for Telemetry from Dr. Martinez.
[2018-10-22 17:04] VITALS: BP 116/76
--- NOTE | 2018-10-22 18:44 | Progress Note (SOAP) ---
Subjective Date Seen by a Provider: October 22, 2018 Time Seen by a Provider: 12:30 Subjective/Events-last exam Fwup beta strep bacteremia, paroxysmal atrial fibrillation, chronic anemia, IV iron transfusion reaction, weakness, colonic polyps, history of AVMs on capsule endoscopy, urinary retention, nausea, constipation. Nausea is improving. Objective Exam Vital Signs Date Time Temp Pulse Resp B/P (MAP) Pulse Ox O2 Delivery O2 Flow Rate FiO2 10/22/18 17:13 78 10/22/18 17:04 99.0 94 18 116/76 (89) 100 Room Air 10/22/18 09:21 Room Air 10/22/18 05:52 98.6 83 18 121/70 (87) 96 Room Air 10/21/18 21:07 Room Air I & O 10/22/18 06:59 Intake Total 650 ml Output Total 600 ml Balance 50 ml Capillary Refill : General Appearance: No Apparent Distress Respiratory: Lungs Clear Cardiovascular: Regular Rate, Rhythm, Systolic Murmur Gastrointestinal: normal bowel sounds, non tender, soft Extremity: Non Tender, No Calf Tenderness, No Pedal Edema Neurologic/Psychiatric: Alert, Oriented x3 Skin: Warm/Dry Results Lab Microbiology 10/10/18 Urine Culture - Final, Complete Escherichia coli Assessment/Plan Assessment/Plan Assess & Plan/Chief Complaint 1. Recent Strep Bacteremia--resolved 2. Paroxyxmal Atrial Fibrillation--back in NSR, amiodarone DCed due to side effects, anticoagulants on hold due to anemia, S/P right heart ablation 3. Iron Deficiency Anemia--H/H improved post transfusion and with hold of anticoagulants--Hgb stable 4. Hypertension--stable 5. Urinary Retention--on urecholine 6. Weakness--patient making progress with PT/OT 7. Nausea--using zofran prn 8. Constipation-bowels moving with miralax 9. ESBL positive UTI--on Macrobid Clinical Quality Measures DVT/VTE Risk/Contraindication: Risk Factor Score Per Nursin RFS Level Per Nursing on Admit: 2=Moderate ANTHONY PERDOMO DO October 22, 2018 18:44
--- NOTE | 2018-10-22 19:12 | NUR ---
bedside report received from JENNIFER RODRIGUEZ, assume care of pt
[2018-10-22] MEDS: CATHETER FLUSH 10 ML SYR IV PRN ×2 (20:47→21:33)
--- NOTE | 2018-10-22 20:47 | NUR ---
Zofran 4mg iv given prior to HS meds to prevent nausea, at pt request
--- NOTE | 2018-10-22 21:15 | NUR ---
assessments & interventions completed, see assessments & interventions
[2018-10-22 21:25] VITALS: BP 111/71
[2018-10-22] MEDS: DILTIAZEM 240 MG (CARDIZEM CD) CAP PO SCH (21:26)
--- NOTE | 2018-10-22 21:26 | NUR ---
pt requests only one Senokot & miralax this evening
[2018-10-22] MEDS: LOSARTAN 100 MG (COZAAR) TABLET PO SCH (21:27)
--- NOTE | 2018-10-23 05:24 | NUR ---
bladder scan showed 525 straight cath with 350ml bianka colored urine return
[2018-10-23] MEDS: ONDANSETRON 4 MG/2 ML (SDV) Z0FRAN IVP PRN (05:57)
--- NOTE | 2018-10-23 05:57 | NUR ---
c/o nausea Zofran 4mg iv given
[2018-10-23] MEDS: CATHETER FLUSH 10 ML SYR IV SCH ×3 (05:58→22:51)
[2018-10-23 06:00] VITALS: BP 128/78
[2018-10-23] MEDS: ACETAMINOPHEN 325 MG TABLET PO SCH ×3 (06:47→22:46)
[2018-10-23] MEDS: BETHANECHOL 25 MG (URECHOLINE) TAB PO SCH ×4 (06:47→20:34)
--- NOTE | 2018-10-23 07:00 | NUR ---
wanted to wait until after breakfast for Protonix
--- NOTE | 2018-10-23 07:12 | NUR ---
bedside report given to CAROLYNE RODRIGUEZ
--- NOTE | 2018-10-23 07:54 | Occupational Ther Daily Note ---
OT Current Status-Daily Note Subjective Pt alert, in bathroom. Pt agrees to therapy. Pt c/o nausea. Report to nrsg. Mental Status/Objective Patient Orientation: Person, Place, Time, Situation Therapy Code Descriptions/Definitions Functional [place] Measure: 0=Not Assessed/NA 4=Minimal Assistance 1=Total Assistance 5=Supervision or Setup 2=Maximal Assistance 6=Modified [place] 3=Moderate Assistance 7=Complete [place] Attachments: IV (midline), Telemetry ADL-Treatment Pt declines shower today. States that she likes to take a shower every other morning. SBA using FWW and grabbars to manipulate clothing. Using BSC for transfers and to lean side to side to cleanse after voiding and BM. Pt ambulated to sink to sit and complete grooming by self. Pt had multiple trips to bathroom during session. Therapy Code Descriptions/Definitions Functional [place] Measure: 0=Not Assessed/NA 4=Minimal Assistance 1=Total Assistance 5=Supervision or Setup 2=Maximal Assistance 6=Modified [place] 3=Moderate Assistance 7=Complete [place] Therapy Quality Codes: 6 Independent with activity with or without an assistive device 5 Patient requires set up or clean up by helper. Patient completes activity by themselves 4 Supervision or touching assist (CGA). [place] provide cues , steadying assist 3 The helper provides less than half the effort to complete the activity 2 The helper provides more than half the effort to complete the activity 1 Dependent. The helper does all the effort to complete an activity 7 Patient refused to complete or attempt activity 9 The patient did not perform the activity before the current illness or injury 88 Not attempted due to Medical conditions or safety concerns Eating (FIM): 7 (Pt able to set self up and use regular utensils to eat.) Eating (QC): 6 Grooming (FIM): 6 Oral Hygiene (QC): 6 Upper Body (FIM): 5 (After set up, pt completes.) Upper Body Dressing (QC): 5 Lower Body Dressing (FIM): 5 (After set up, pt completes with SBA.) Lower Body Dressing (QC): 4 On/Off Footwear (QC): 5 Toileting (FIM): 5 Toileting Hygiene (QC): 4 Transfers (B, C, W/C) (FIM): 5 Toilet/Commode Transfer (FIM): 5 Toilet Transfer (QC): 4 Other Treatment Pt ambulated to therapy gym using FWW with CGA. Pt completed UE fine motor tasks to increase real estate attorney/pinch and B UE strength and coordination when completing daily functional tasks.. Pt takes increased time to complete tasks due to decreased activity tolerance and increased nausea and fatigue. After therapy, pt sitting in recliner with feet elevated. Call light/phone in reach. All needs met in room. OT Short Term Goals Short Term Goals Time Frame: October 21, 2018 Eating(FIM): 5 Grooming(FIM): 5 Bathing(FIM): 5 Upper Body Dressing(FIM): 5 Lower Body Dressing(FIM): 5 Toileting(FIM): 5 Transfers (B,C,W/C) (FIM): 5 Toilet/Commode Transfer(FIM): 5 Shower Transfer(FIM): 4 Additional Short Term Goals: 1-Demonstrate ADL Tasks, 2-Verbalize Understanding , 3-ImproveStrength/Rafia 1=Demonstrate adherence to instructed precautions during ADL tasks. 2=Patient will verbalize/demonstrate understanding of assistive devices/ modifications for ADL. 3=Patient will improve strength/tolerance for activity to enable patient to perform ADL's. OT Distribution Spec Goals [place] Goals Time Frame: November 04, 2018 Eating (FIM): 6 Eating (QC): 6 Groomin Oral Hygiene (QC): 6 Bathing(FIM): 5 Shower/Bathe Self (QC): 5 Upper Body Dressing(FIM): 6 Upper Body Dressing (QC): 6 Lower Body Dressing(FIM): 6 Lower Body Dressing (QC): 6 On/Off Footwear (QC): 6 Toileting(FIM): 6 Toileting Hygiene (QC): 6 Transfers (B,C,W/C) (FIM): 6 Toilet/Commode Transfer(FIM): 6 Toilet/Commode Transfer (QC): 6 Shower Transfer(FIM): 5 Additional Goals: 1-Demonstrate ADL Tasks, 2-Verbalize Understanding, 3- ImproveStrength/Rafia 1=Demonstrate adherence to instructed precautions during ADL tasks. 2=Patient will verbalize/demonstrate understanding of assistive devices/ modifications for ADL. 3=Patient will improve strength/tolerance for activity to enable patient to perform ADL's. OT Education/Plan Problem List/Assessment Assessment: Decreased Activ Tolerance, Decreased UE Strength, Impaired Coordination, Impaired Funct Balance, Impaired Self-Care Skills Discharge Recommendations Plan/Recommendations: Continue POC Treatment Plan/Plan of Care Patient would benefit from OT for education, treatment and training to promote independence in ADL's, mobility, safety and/or upper extremity function for ADL' s. Plan of Care: ADL Retraining, Functional Mobility, Group Exercise/Act as Ind, UE Funct Exercise/Act Treatment Duration: November 04, 2018 Frequency: At least 5 of 7 days/Wk (IRF) Estimated Hrs Per Day: 1.5 hours per day Agreement: Yes Rehab Potential: Fair Time/GCodes Start Time: 07:00 Stop Time: 08:30 Total Time Billed (hr/min): 90 Billed Treatment Time 1 visit-ADL 4 (60 min) EX 2 (30 min) MAXIMINO FERGUSON October 23, 2018 07:54
--- NOTE | 2018-10-23 08:16 | PM&R Progress Note ---
Subjective HPI/CC On Admission Date Seen by Provider: October 23, 2018 Time Seen by Provider: 08:15 Chief complaint: Myopathy with debility. HPI: This is a 68[address] 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 Pt has also had some urinary retention, Dr. Greco has been consulted and recommended self caths once a day with bladder scanning as needed and due to all of the 14 days of hospital stay she has become very debilitated and prior level of functioning was independent with use of a cane and now she can only take a few steps to go to the toilet. She did have a low grade fever today, sepsis workup with laboratory was ordered by Dr. Mcfarland to assess for any type of sepsis but we will continue the workup with Dr. Sahu's help along with Dr. Mcfarland, Dr. Cheng and Dr. Greco while she is on the inpatient rehab unit prior to discharge home to live independently. Subjective/Events-last exam Patient doing about the same Diarrhea is worsening so Dr Sahu will be ordering C diff colitis No pain is reported Nausea continues to be an issue I doubt she can improve enough to maintain IRF protocol due to so many somatic issues that preclude her from participating with a lot of energy and motivation so will speak to team today in weekly meeting and likely decide to move to [place] Conferred with RN. Reviewed therapy notes. Review of Systems General: Fatigue Gastrointestinal: Diarrhea Neurological: Weakness, Numbness, Incoordination Objective Exam Vital Signs Vital Signs Date Time Temp Pulse Resp B/P (MAP) Pulse Ox O2 Delivery O2 Flow Rate FiO2 10/23/18 07:00 103 10/23/18 06:00 98.4 16 128/78 (95) 100 Room Air Capillary Refill : General Appearance: No Apparent Distress, WD/WN, Chronically ill, Thin HEENT: PERRL/EOMI, Normal ENT Inspection, Pharynx Normal, Moist Mucous Membranes Neck: Supple Respiratory: Chest Non Tender, Lungs Clear, Normal Breath Sounds, No Accessory Muscle Use, No Respiratory Distress Cardiovascular: Regular Rate, Rhythm, No Edema, No Murmur, Normal Peripheral Pulses, Systolic Murmur Gastrointestinal: Normal Bowel Sounds, No Organomegaly, No Pulsatile Mass, Non Tender, Soft Back: Normal Inspection, No CVA Tenderness, No Vertebral Tenderness Extremity: Non Tender, No Calf Tenderness, No Pedal Edema Neurologic/Psychiatric: Alert, Oriented x3, No Motor/Sensory Deficits, disassembler II- XII Norm as Tested, Depressed Affect Skin: Normal Color, Warm/Dry Lymphatic: No Adenopathy Results/Procedures Lab Patient resulted labs reviewed. FIM Transfers Therapy Code Descriptions/Definitions Functional [place] Measure: 0=Not Assessed/NA 4=Minimal Assistance 1=Total Assistance 5=Supervision or Setup 2=Maximal Assistance 6=Modified [place] 3=Moderate Assistance 7=Complete [place] Therapy Quality Codes: 6 Independent with activity with or without an assistive device 5 Patient requires set up or clean up by helper. Patient completes activity by themselves 4 Supervision or touching assist (CGA). [place] provide cues , steadying assist 3 The helper provides less than half the effort to complete the activity 2 The helper provides more than half the effort to complete the activity 1 Dependent. The helper does all the effort to complete an activity 7 Patient refused to complete or attempt activity 9 The patient did not perform the activity before the current illness or injury 88 Not attempted due to Medical conditions or safety concerns Transfers (B, C, W/C) (FIM): 4 (Min assist for balance for sit-stand and ambulation.) Scootin Rollin Roll Left to Right (QC): 4 Supine to/from Sit: 5 Sit to/from Stand: 4 Sit to Lying (QC): 4 Sit to Stand (QC): 4 Chair/Ofk-kg-Fblog Xfer(QC): 3 (assist to move walker and to stabilize at gait belt) Bed to/from Chair: 4 Car Transfer (QC): 4 Gait Training Does the Patient Walk?: Yes Gait (FIM): 3 Distance (FIM): 3=150 ft Distance: 200' Walk 10 feet (QC): 4 Walk 50 ft with 2 Turns(QC): 4 Walk 150 ft (QC): 3 Walking 10ft/uneven surface-QC: 88 (unsafe to attempt at this time due to balance and strength deficits) Gait Level of Assist: 4 Gait Persons Needed: 1 Gait Assistive Device: FWW Wheelchair Training Does the Pt Use a Wheelchair?: No Wheelchair (FIM): 3 Wheelchair Distance: 3=150 ft (150, 100,50) Distance: 100' Wheelchair Level of Assist: 5 Wheel 50 ft with 2 turns (QC): 4 Type of Wheelchair: Manual Stair Training Stairs (FIM): 0 1 Step (curb) (QC): 88 4 Steps (QC): 88 12 Steps (QC): 88 Balance Picking up an Object (QC): 88 Mental Status/Objective Comprehension: 7 Expression: 7 Social Interaction: 7 Problem Solvin Memory: 7 ADL-Treatment Feedin (Pt able to set self up and use regular utensils to eat.) Eating (QC): 6 Groomin (Set up in chair to blow dry and fix hair.) Oral Hygiene (QC): 4 Bathin (CGA in stance to dry all parts.) Bathing Location: L Arm, R Arm, L Upper Leg, R Upper Leg, L Lower Leg ( including foot), R Lower Leg (including foot), Chest, Abdomen, Buttocks, Perineal Area Shower/Bathe Self (QC): 4 Upper Extremity Dressin Upper Body Dressing (QC): 4 Lower Extremity Dressin (CGA/Min assist in stance to pull pants over hips.) Lower Body Dressing (QC): 4 On/Off Footwear (QC): 4 Toiletin (CGA in stance to cleanse rear ping area.) Toileting Hygiene (QC): 4 Toilet/Commode Transfer: 4 Toilet Transfer (QC): 4 Shower: 4 Assessment/Plan Assessment and Plan Assess & Plan/Chief Complaint Assessment: 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 Acute on chronic depression ESBL UTI Somatic complaints Mood disorder s/p atrial ablation POD # 4 Plan: IRF protocols Home meds maintained Nausea meds will continue and inquire with PCP regarding PPI IV causing the nausea Pain meds Ultram scheduled per PCP Dr Greco appreciated Self caths and bladder scan prn daily per Dr Greco orders if she complies BM regimen to be maintained since bowels are now moving well overall on schedule Appreciate Dr Mcfarland and Dr Greco and Dr Sahu and Dr Martinez Monitor labs Anticoagulation once no longer a risk for bleeding Nausea and depression addressed by PCP and much improved some days then other days not so much ESBL UTI with Macrobid is completed Sleep study per Dr Cheng Atrial ablation has improved her status tremendously but now really unsure her energy has been maintained so likely will need to be DC to NH for a slower recovery pace Check loose stools for C diff (1) Myopathy (2) Atrial fibrillation with rapid ventricular response (3) Palpitations (4) Nausea (5) Headache (6) Atrial fibrillation (7) Iron deficiency (8) Fever (9) Urinary retention (10) Anemia (11) Depression (12) Dyspnea (13) Edema (14) Cardiac murmur (15) GERD (gastroesophageal reflux disease) (16) Cancer of spinal column (17) Debility (18) Late eff nerv injury trnk NEC (19) Leg weakness (20) Anticoagulant long-term use (21) Atrial fibrillation with rapid ventricular response (22) Transfusion of blood during current hospitalization (23) Self-catheterizes urinary bladder (24) Bacteremia due to Streptococcus (25) Fever (26) UTI (urinary tract infection) (27) UTI due to extended-spectrum beta lactamase (ESBL) producing Escherichia coli (28) Somatization disorder (29) Diarrhea YURI MARSHALL DO October 23, 2018 08:16
--- NOTE | 2018-10-23 08:28 | Cardiology Progress Note ---
Subjective Date Seen by Provider: October 23, 2018 Time Seen by Provider: 08:27 Subjective/Events-last exam Patient is sitting up in chair, continues to complain of nausea. Denies any chest pain or dyspnea. Objective-Cardiology Exam Last Set of Vital Signs Vital Signs 10/23/18 10/23/18 06:00 07:00 Temp 98.4 Pulse 103 Resp 16 B/P (MAP) 128/78 (95) Pulse Ox 100 O2 Delivery Room Air Capillary Refill : I&O Intake and Output 10/23/18 00:00 Intake Total 850 ml Balance 850 ml Intake Oral 850 ml Bladder Scan Volume Amount 97 ml # Voids 5 # Urine Diapers 3 # Bowel Movements 5 General: Alert, Oriented X3, Cooperative HEENT: Atraumatic, PERRLA Neck: Supple, No JVD, No Thyromegaly Lungs: Clear to Auscultation, Normal Air Movement Heart: Regular Rate, Normal S1, Normal S2, Other (SM at LSB) Abdomen: Normal Bowel Sounds, Soft, No Tenderness, No Hepatosplenomegaly, No Masses Extremities: No Clubbing, No Cyanosis, No Edema, Normal Pulses, No Tenderness/ Swelling Skin: No Rashes, No Breakdown, No Significant Lesion Neuro: Normal Gait, Normal Speech, Strength at 5/5 X4 Ext, Normal Tone, Sensation Intact Psych/Mental Status: Mental Status NL, Mood NL A/P-Cardiology Admission Diagnosis Strep bacteremia Atrial fibrillation/flutter Anemia Generalized debility Assessment/Plan Status post Streptococcus bacteremia, fever and chills and generalized weakness , started on Rocephin and vancomycin, managed by primary care physician, TITUS done 09/23/18 revealed mild with no vegetation to valves, received Rocephin for 11 days last dose on 10/04, received 4 days of Vanco. Better at this time, continue to monitor ESBL UTI- on antibiotic, management per PCP Hypertension, controlled, continue to monitor. Generalized debility/weakness- continue PT Paroxysmal atrial fibrillation/flutter, s/p atrial flutter ablation done by Dr. Martinez on 10/18/18. Intolerant to amiodarone secondary to nausea and tremors, currently SR, continues to have persistent nausea. Anemia, has been on iron supplement, s/p blood transfusion. Currently off all OAC. EGD/colonoscopy done revealed no active bleeding, continue to monitor H&H History of chronic anticoagulation, had GI bleed on Pradaxa, intolerant to Coumadin. Xarelto was discontinued secondary to worsening anemia History of multiple episodes of GI bleed. Had workup done by Dr. Alberts and she was restarted on Xarelto, stopped for now and monitor H&H, reportedly had AVM as a source of the intermittent GI bleed Questionable underlying sleep apnea, Dr. Cheng following. Status post iron transfusion with questionable allergic reaction, had similar reaction to different iron product with generalized weakness and generalized body ache, has been managed by Dr. Nicholas History of abnormal baseline EKG with first-degree AV block and right bundle branch block, right ventricular hypertrophy pattern. History of syncope while on atenolol was unable to tolerate the medication in the past. History of pancreatic nodule, had workup with Dr. Alberts Family history of CVA Clinical Quality Measures DVT/VTE Risk/Contraindication: Risk Factor Score Per Nursin RFS Level Per Nursing on Admit: 2=Moderate RUBIO KOHLI October 23, 2018 08:28
[2018-10-23] MEDS: ONDANSETRON 4 MG (ZOFRAN) ORAL DISSOLVE TAB PO PRN (08:55)
[2018-10-23] MEDS: SENNA W/DOCUSATE (SENOKOT S) TABLET PO SCH ×2 (09:00→20:35)
[2018-10-23] MEDS: POLYETHYLENE GLYCOL 17 GM (MIRALAX) PACK PO SCH ×2 (09:00→20:38)
--- NOTE | 2018-10-23 10:19 | Physical Therapy Daily Note ---
PT Daily Note-Current Subjective Pt sitting up in recliner upon arrival. Pt agrees to PT. Nurse advises pt has had several BMs in a short time this morning. Pt is fatigued. Mental Status Patient Orientation: Person, Confused, Place Transfers Therapy Code Descriptions/Definitions Functional [place] Measure: 0=Not Assessed/NA 4=Minimal Assistance 1=Total Assistance 5=Supervision or Setup 2=Maximal Assistance 6=Modified [place] 3=Moderate Assistance 7=Complete [place] Therapy Quality Codes: 6 Independent with activity with or without an assistive device 5 Patient requires set up or clean up by helper. Patient completes activity by themselves 4 Supervision or touching assist (CGA). [place] provide cues , steadying assist 3 The helper provides less than half the effort to complete the activity 2 The helper provides more than half the effort to complete the activity 1 Dependent. The helper does all the effort to complete an activity 7 Patient refused to complete or attempt activity 9 The patient did not perform the activity before the current illness or injury 88 Not attempted due to Medical conditions or safety concerns Scootin Sit to/from Stand: 4 Sit to Stand (QC): 4 Weight Bearing Right Lower Extremity: Right Full Weight Bearing Left Lower Extremity: Left Full Weight Bearing Exercises Seated Therapy Exercises: Ankle pumps, Long arc quads, Hip flexion, Kicking activity, Glut set Seated Reps: 15 (2 sets with RB as needed) Treatments Pt completes Seated EX with RB as needed. Pt also has questions for ELECTRICAL PROSPECTOR regarding pt's progress and likelihood of SNF vs HH PT. ELECTRICAL PROSPECTOR explained while pt has made progress with strength and mobility, it is not safe at this time to D/ C to home with just HH. Pt is not strong enough to be safe to complete everyday tasks to care of self since family is not available 01/01. Pt asked for options and ELECTRICAL PROSPECTOR redirected to SNF option at this time. Pt resting at end of tx due to fatigue from several BMs. Pt has all needs met. Assessment Current Status: Fair Progress Pt fatigues easily and needs redirection often since pt is not remembering previous conversations with staff. PT Short Term Goals Short Term Goals Time Frame: October 14, 2018 Transfers (B,C,W/C) (FIM): 5 Gait (FIM): 2 Distance (FIM): 3=702-50 ft Gait Assistive Device: FWW Wheelchair Distance: 100' PT Entertainment Musician Goals Entertainment Musician Goals PT Mcc Goals Time Frame: October 25, 2018 Transfers (B,C,W/C) (FIM): 7 Sit to Lying (QC): 6 Lying-Sitting on Side/Bed(QC): 6 Sit to Stand (QC): 6 Rollin Roll Left to Right (QC): 6 Chair/Evm-gt-Yszsr Xfer(QC): 6 Car Transfer (QC): 6 Does the Patient Walk: Yes Gait (FIM): 6 Gait distance (FIM): 3=150 ft Walk 10 feet (QC): 6 Walk 10ft-Uneven Surface(QC): 5 Walk 50ft with 2 Turns (QC): 6 Walk 150 ft (QC): 6 Gait Assistive Device: FWW Does the Pt use WC or Scooter?: No Stairs (FIM): 2 # of Steps: 1 1 Step (curb) (QC): 6 4 Steps (QC): 88 12 Steps (QC): 88 Picking up an Object (QC): 88 PT Plan Problem List Problem List: Activity Tolerance, Functional Strength, Safety, Balance, Gait, Transfer Treatment/Plan Treatment Plan: Continue Plan of Care Treatment Plan: Bed Mobility, Education, Functional Activity Rafia, Functional Strength, Group Therapy, Gait, Safety, Therapeutic Exercise, Transfers Treatment Duration: October 25, 2018 Frequency: At least 5 of 7 days/Wk (IRF) Estimated Hrs Per Day: 1.5 hours per day Patient and/or Family Agrees t: Yes Safety Risks/Education Patient Education: Gait Training, Transfer Techniques, Correct Positioning, Safety Issues Teaching Recipient: Patient Teaching Methods: Discussion Response to Teaching: Verbalize Understanding, Reinforcement Needed Time/GCodes Time In: 915 Time Out: 1015 Total Billed Treatment Time: 60 Total Billed Treatment 1, EX x2 (30m) & FA x2 (30m) G Codes Necessary: SINGH Jeffries ELECTRICAL PROSPECTOR October 23, 2018 10:19
[2018-10-23] MEDS: SERTRALINE 50 MG (ZOLOFT) TABLET PO SCH ×2 (10:56→20:34)
[2018-10-23] MEDS: VITAMIN D3 1,000 UNITS (CHOLECALCIFEROL) TABLET PO SCH (10:56)
[2018-10-23] MEDS: PANTOPRAZOLE 40 MG (PROTONIX) VIAL IV SCH (10:56)
[2018-10-23] MEDS: HYDROCHLOROTHIAZIDE 25 MG (HCTZ) TAB PO SCH (10:56)
--- NOTE | 2018-10-23 11:02 | Cardiology Progress Note ---
Subjective Date Seen by Provider: October 23, 2018 Time Seen by Provider: 08:00 Subjective/Events-last exam patient is complaining of nausea, had an episode of palpitation yesterday and this morning. Review of Systems General: No Chills, No Night Sweats, No Fatigue, No Malaise, No Appetite, No Other HEENT: No Head Aches, No Visual Changes, No Eye Pain, No Ear Pain, No Dysphasia , No Sinus Congestion, No Post Nasal Drip, No Sore Throat, No Other Pulmonary: No Dyspnea, No Cough, No Pleuritic Chest Pain, No Other Cardiovascular: No: Chest Pain, Palpitations, Orthopnea, Paroxysmal Noc. Dyspnea, Edema, Lt Headedness, Other Objective-Cardiology Exam Last Set of Vital Signs Vital Signs 10/23/18 10/23/18 06:00 07:00 Temp 98.4 Pulse 103 Resp 16 B/P (MAP) 128/78 (95) Pulse Ox 100 O2 Delivery Room Air Capillary Refill : I&O Intake and Output 10/23/18 00:00 Intake Total 850 ml Balance 850 ml Intake Oral 850 ml Bladder Scan Volume Amount 97 ml # Voids 5 # Urine Diapers 3 # Bowel Movements 5 General: Alert, Oriented X3, Cooperative HEENT: Atraumatic, PERRLA Neck: Supple, No JVD, No Thyromegaly Lungs: Clear to Auscultation, Normal Air Movement Heart: Regular Rate, Normal S1, Normal S2, Other (SM at LSB) Abdomen: Normal Bowel Sounds, Soft, No Tenderness, No Hepatosplenomegaly, No Masses Extremities: No Clubbing, No Cyanosis, No Edema, Normal Pulses, No Tenderness/ Swelling Skin: No Rashes, No Breakdown, No Significant Lesion Neuro: Normal Gait, Normal Speech, Strength at 5/5 X4 Ext, Normal Tone, Sensation Intact Psych/Mental Status: Mental Status NL, Mood NL A/P-Cardiology Admission Diagnosis Strep bacteremia Atrial fibrillation/flutter Anemia Generalized debility Assessment/Plan Status post Streptococcus bacteremia, fever and chills and generalized weakness , started on Rocephin and vancomycin, managed by primary care physician, TITUS done 09/23/18 revealed mild with no vegetation to valves, received Rocephin for 11 days last dose on 10/04, received 4 days of Vanco. Better at this time, continue to monitor ESBL UTI- on antibiotic, management per PCP Hypertension, controlled, continue to monitor. Generalized debility/weakness- continue PT Paroxysmal atrial fibrillation/flutter, s/p atrial flutter ablation done by Dr. Martinez on 10/18/18. Intolerant to amiodarone secondary to nausea and tremors, currently SR, continues to have persistent nausea, had transient episode of palpitation last night which appeared to have sinus rhythm with first-degree AV block and occasional nonconducted atrial beats. Resolved spontaneously. No further episodes were noted. Anemia, has been on iron supplement, s/p blood transfusion. Currently off all OAC. EGD/colonoscopy done revealed no active bleeding, continue to monitor H&H History of chronic anticoagulation, had GI bleed on Pradaxa, intolerant to Coumadin. Xarelto was discontinued secondary to worsening anemia History of multiple episodes of GI bleed. Had workup done by Dr. Alberts and she was restarted on Xarelto, stopped for now and monitor H&H, reportedly had AVM as a source of the intermittent GI bleed Questionable underlying sleep apnea, Dr. Cheng following. Status post iron transfusion with questionable allergic reaction, had similar reaction to different iron product with generalized weakness and generalized body ache, has been managed by Dr. Nicholas History of abnormal baseline EKG with first-degree AV block and right bundle branch block, right ventricular hypertrophy pattern. History of syncope while on atenolol was unable to tolerate the medication in the past. History of pancreatic nodule, had workup with Dr. Alberts Family history of CVA Clinical Quality Measures DVT/VTE Risk/Contraindication: Risk Factor Score Per Nursin RFS Level Per Nursing on Admit: 2=Moderate DAMON CLAUDIO MD October 23, 2018 11:02
--- NOTE | 2018-10-23 12:17 | Cardiology Progress Note ---
Cardiology SOAP Progress Note Subjective: No cardiac complaints. Objective: I&O/Vital Signs 10/23/18 10/23/18 10/23/18 01:00 06:00 07:00 Temp 98.4 Pulse 88 65 103 Resp 16 B/P (MAP) 128/78 (95) Pulse Ox 100 O2 Delivery Room Air 10/23/18 00:00 Intake Total 500 ml Balance 500 ml Weight (Pounds): 160 Weight (Ounces): 13.1 Weight (Calculated Kilograms): [id number] Constitutional: No appears stated age, No AAO x 3, No apparent distress, No PERRL, No well-developed, No well-nourished, No other Respiratory: No accessory muscle use, No respiratory distress, No chest tender , No chest expansion is symmetric; chest is bilaterally symmetric; No lungs clear to percussion; lungs clear to auscultation; No crackles, No rhonchi, No rales, No stridor, No wheezing, No pleural rub, No other Cardiovascular: regular rate-rhythm; No irregularly irregular, No extra beats, No parasternal heave is noted, No JVD, No edema, No bradycardia, No tachycardia , No point of maximal impulse, No cardiac thrills are palpable; S1 and S2; No gallop/S3, No gallop/S4, No diastolic murmur, No systolic murmur, No friction rub, No click, No other Gastrointestional: No tender, No soft, No round, No distended, No pulsatile mass, No organomegaly, No guarding, No rebound, No tenderness, No hernia, No mass, No audible bowel sounds, No abnormal bowel sounds, No abdominal bruits, No spleenomegaly, No other Extremities: No normal range of motion, No non-tender, No normal inspection, No pedal edema, No calf tenderness, No normal capillary refill, No pelvis stable , No calf tenderness, No inflammation, No pedal edema, No slow capillary refill , No swelling, No other, No abrasion, No clubbing, No cyanosis, No ecchymosis, No laceration, No no lower extremity edema bilateral, No significant edema, No tenderness, No wound Neurologic/Psychiatric: no motor/sensory deficits, alert, normal mood/affect, oriented x 3 Skin: pallor Results/Procedures: Labs Microbiology 10/10/18 Urine Culture - Final, Complete Escherichia coli A/P: Assessment/Dx: Typical atrial flutter, status post CTI ablation, Paroxysmal atrial fibrillation, Recent GI bleeding, UTI sepsis recent, ESBL. Plan: Typical atrial flutter, at least one episode which degenerated into atrial fibrillation. During typical atrial flutter Dr. Mcfarland gave adenosine which caused AV block and brought out for typical atrial flutter waves. I discussed at length with the patient, family, Dr. Mcfarland and Dr. Sahu and scheduled the patient for CTI dependent flutter ablation which was done on 10/18/2018. Successful bidirectional block during the procedure. Paroxysmal atrial fibrillation, currently in sinus rhythm. Amiodarone discontinued due to tremor. No oral anticoagulation due to recent GI bleeding. Consider other antiarrhythmic therapy; was restarted on propafenone. I did discuss with the patient and daughter about left atrial appendage closure as a therapy to prevent stroke in a patient with paroxysmal atrial fibrillation who cannot take oral anticoagulation. 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 No atrial flutter or atrial fibrillation. Recent GI bleeding, not on any anticoagulation at this point in time. Dr. Mcfarland following as well. ESBL Escherichia coli UTI, recovering. Recent sepsis. Thank you for your consultation. Please call me if you have any questions. Jay Martinez MD, FACP, FACC, FSCAI, FHRS, CCDS Interventional Cardiology Cardiac Electrophysiology Vascular Medicine and Endovascular Interventions Tracy MARTINEZ MD October 23, 2018 12:16
--- NOTE | 2018-10-23 12:36 | Progress Note (SOAP) ---
Subjective Date Seen by a Provider: October 23, 2018 Time Seen by a Provider: 12:34 Subjective/Events-last exam Fwup beta strep bacteremia, paroxysmal atrial fibrillation, chronic anemia, IV iron transfusion reaction, weakness, colonic polyps, history of AVMs on capsule endoscopy, urinary retention, nausea, constipation. Still with nausea but not as severe. Has had 4 watery stools this morning. Objective Exam Vital Signs Date Time Temp Pulse Resp B/P (MAP) Pulse Ox O2 Delivery O2 Flow Rate FiO2 10/23/18 07:00 103 10/23/18 06:00 98.4 65 16 128/78 (95) 100 Room Air 10/23/18 01:00 88 10/22/18 21:25 83 18 111/71 (84) 99 Room Air 10/22/18 21:15 Room Air 10/22/18 19:00 101 10/22/18 17:13 78 10/22/18 17:04 99.0 94 18 116/76 (89) 100 Room Air I & O 10/23/18 07:00 Intake Total 650 ml Output Total 365 ml Balance 285 ml Capillary Refill : General Appearance: No Apparent Distress Neck: Supple Respiratory: Lungs Clear Cardiovascular: Regular Rate, Rhythm, Systolic Murmur Gastrointestinal: normal bowel sounds, non tender, soft Extremity: Non Tender, No Calf Tenderness, No Pedal Edema Neurologic/Psychiatric: Alert, Oriented x3 Skin: Warm/Dry Results Lab Microbiology 10/10/18 Urine Culture - Final, Complete Escherichia coli Assessment/Plan Assessment/Plan Assess & Plan/Chief Complaint 1. Recent Strep Bacteremia--resolved 2. Paroxyxmal Atrial Fibrillation--back in NSR, amiodarone DCed due to side effects, anticoagulants on hold due to anemia, S/P right heart ablation, check CBC, CMP, magnesium due to some palpitations last night 3. Iron Deficiency Anemia--H/H improved post transfusion and with hold of anticoagulants--Hgb stable 4. Hypertension--stable 5. Urinary Retention--on urecholine 6. Weakness--patient making progress with PT/OT 7. Nausea--using zofran prn 8. Constipation--now with diarrhea so will check C Diff 9. ESBL positive UTI--off Macrobid so will reculture urine Clinical Quality Measures DVT/VTE Risk/Contraindication: Risk Factor Score Per Nursin RFS Level Per Nursing on Admit: 2=Moderate ORENDER,ANTHONY S DO October 23, 2018 12:36
[2018-10-23 13:16] LABS: BASOPHILS # (AUTO) 0.1 10^3/uL (0.0-0.1); BASOPHILS % (AUTO) 1 % (0-10); EOSINOPHILS # (AUTO) 0.1 10^3/uL (0.0-0.3); EOSINOPHILS % (AUTO) 1 % (0-10); HEMATOCRIT 41 % (35-52); HEMOGLOBIN 12.9 G/DL (11.5-16.0); LYMPHOCYTES # (AUTO) 2.2 X 10^3 (1.0-4.0); LYMPHOCYTES % (AUTO) 25 % (12-44); MEAN CORPUSCULAR HEMOGLOBIN 27 PG (25-34); MEAN CORPUSCULAR HGB CONC 31 G/DL (32-36); MEAN CORPUSCULAR VOLUME 86 FL (80-99); MEAN PLATELET VOLUME 10.7 FL (7.4-10.4); MONOCYTES # (AUTO) 0.8 X 10^3 (0.0-1.0); MONOCYTES % (AUTO) 9 % (0-12); NEUTROPHILS # (AUTO) 5.7 X 10^3 (1.8-7.8); NEUTROPHILS % (AUTO) 65 % (42-75); PLATELET COUNT 250 10^3/uL (130-400); RED CELL DISTRIBUTION WIDTH 21.1 % (10.0-14.5); WHITE BLOOD COUNT 8.9 10^3/uL (4.3-11.0)
--- NOTE | 2018-10-23 13:20 | Pulmonary Progress Note ---
Sepsis Event Evaluation Height, Weight, BMI Height: 5'5.00" Weight: 160lbs. 13.1oz. [id number]; 29.0 BMI Method:Stated Exam Exam Vital Signs Date Time Temp Pulse Resp B/P (MAP) Pulse Ox O2 Delivery O2 Flow Rate FiO2 10/23/18 07:00 103 10/23/18 06:00 98.4 65 16 128/78 (95) 100 Room Air 10/23/18 01:00 88 10/22/18 21:25 83 18 111/71 (84) 99 Room Air 10/22/18 21:15 Room Air 10/22/18 19:00 101 10/22/18 17:13 78 10/22/18 17:04 99.0 94 18 116/76 (89) 100 Room Air I & O 10/23/18 07:00 Intake Total 650 ml Output Total 365 ml Balance 285 ml Height & Weight Height: 5'5.00" Weight: 160lbs. 13.1oz. [id number]; 29.0 BMI Method:Stated General Appearance: No Apparent Distress HEENT: PERRL/EOMI, Normal ENT Inspection, Pharynx Normal, Moist Mucous Membranes Neck: Supple Respiratory: Lungs Clear Cardiovascular: Regular Rate, Rhythm, Systolic Murmur Gastrointestinal: normal bowel sounds, non tender, soft Extremity: Non Tender, No Calf Tenderness, No Pedal Edema Neurologic/Psychiatric: Alert, Oriented x3 Skin: Warm/Dry Lymphatic: No Adenopathy Results Lab Assessment/Plan Assessment/Plan SHEFALI with Snoring, EDS, nocturnal hypoxia - -PSG was done in hospital 09/22/18 -will need home CPAP Afib -Dr. Martinez is following HTN Anemia s/p 2 units of PRBC Urinary rentention GERD/PUD ROSA LOPEZ DO October 23, 2018 13:20
[2018-10-23 13:41] LABS: BILIRUBIN,TOTAL 0.6 MG/DL (0.1-1.0); CALCIUM 10.6 MG/DL (8.5-10.1); CREATININE SERUM 1.25 MG/DL (0.60-1.30); MAGNESIUM 1.9 MG/DL (1.8-2.4); POTASSIUM 3.9 MMOL/L (3.6-5.0); TOTAL PROTEIN 9.4 GM/DL (6.4-8.2)
--- NOTE | 2018-10-23 15:05 | NUR ---
Follow up visit to provide emotional and spiritual support for feeling depressed and frustrated. Pt engaged in life review, reflection about her relationship to God and her family, and demonstrated positive coping and increasingly reflected positively on her experiences throughout the duration of our visit. Pt's carmen continues to be a source of comfort and strength to her.
--- NOTE | 2018-10-23 15:54 | Physical Therapy Daily Note ---
PT Daily Note-Current Subjective Pt sitting up in recliner visiting with Land Acquisition Analyst & blood draw occurring by lab upon arrival. Pt agrees to PT. Mental Status Patient Orientation: Person, Confused, Place Transfers Therapy Code Descriptions/Definitions Functional [place] Measure: 0=Not Assessed/NA 4=Minimal Assistance 1=Total Assistance 5=Supervision or Setup 2=Maximal Assistance 6=Modified [place] 3=Moderate Assistance 7=Complete [place] Therapy Quality Codes: 6 Independent with activity with or without an assistive device 5 Patient requires set up or clean up by helper. Patient completes activity by themselves 4 Supervision or touching assist (CGA). [place] provide cues , steadying assist 3 The helper provides less than half the effort to complete the activity 2 The helper provides more than half the effort to complete the activity 1 Dependent. The helper does all the effort to complete an activity 7 Patient refused to complete or attempt activity 9 The patient did not perform the activity before the current illness or injury 88 Not attempted due to Medical conditions or safety concerns Scootin Supine to/from Sit: 5 Sit to/from Stand: 4 Sit to Lying (QC): 5 Sit to Stand (QC): 4 Weight Bearing Right Lower Extremity: Right Full Weight Bearing Left Lower Extremity: Left Full Weight Bearing Gait Training Does the Patient Walk?: Yes Gait (FIM): 2 Distance (FIM): 1=up to 49 ft Distance: 20' Walk 10 feet (QC): 4 Gait Level of Assist: 4 Gait Persons Needed: 1 Gait Assistive Device: FWW Pt does not demonstrate social awareness of balance with ambulation. Exercises Seated Therapy Exercises: Ankle pumps, Long arc quads, Hip flexion, Kicking activity Seated Reps: 15 Treatments Lab completes blood draw on pt. Pt completes Seated EX before transferring to standing from recliner. Pt uses restroom including removal of soiled brief and pants. Pt changes into hospital gown then ambulates back to EOB. Pt transfers to Supine in bed at end of tx. Pt has all needs met. Assessment Current Status: Fair Progress Pt fatigues easily and continues to demonstrate confusion with tasks. Pt needs increased VC to complete for sequencing and safety. PT Short Term Goals Short Term Goals Time Frame: October 14, 2018 Transfers (B,C,W/C) (FIM): 5 Gait (FIM): 2 Distance (FIM): 0=729-54 ft Gait Assistive Device: FWW Wheelchair Distance: 100' PT Intermediate Goals City Supervisor Goals PT Intermediate Goals Time Frame: October 25, 2018 Transfers (B,C,W/C) (FIM): 7 Sit to Lying (QC): 6 Lying-Sitting on Side/Bed(QC): 6 Sit to Stand (QC): 6 Rollin Roll Left to Right (QC): 6 Chair/Mtp-bq-[place] Xfer(QC): 6 Car Transfer (QC): 6 Does the Patient Walk: Yes Gait (FIM): 6 Gait distance (FIM): 3=150 ft Walk 10 feet (QC): 6 Walk 10ft-Uneven Surface(QC): 5 Walk 50ft with 2 Turns (QC): 6 Walk 150 ft (QC): 6 Gait Assistive Device: FWW Does the Pt use WC or Scooter?: No Stairs (FIM): 2 # of Steps: 1 1 Step (curb) (QC): 6 4 Steps (QC): 88 12 Steps (QC): 88 Picking up an Object (QC): 88 PT Plan Problem List Problem List: Activity Tolerance, Functional Strength, Safety, Balance, Gait Treatment/Plan Treatment Plan: Continue Plan of Care Treatment Plan: Bed Mobility, Education, Functional Activity Rafia, Functional Strength, Group Therapy, Gait, Safety, Therapeutic Exercise, Transfers Treatment Duration: October 25, 2018 Frequency: At least 5 of 7 days/Wk (IRF) Estimated Hrs Per Day: 1.5 hours per day Patient and/or Family Agrees t: Yes Safety Risks/Education Patient Education: Gait Training, Transfer Techniques, Correct Positioning, Safety Issues Teaching Recipient: Patient Teaching Methods: Discussion Response to Teaching: Reinforcement Needed Time/GCodes Time In: 1250 Time Out: 1330 Total Billed Treatment Time: 40 Total Billed Treatment 1, FA x3 (40m) G Codes Necessary: SINGH Jeffries REGULATOR INSPECTOR October 23, 2018 15:54
--- NOTE | 2018-10-23 16:13 | NUR ---
TANK FARM ATTENDANT met with patient and daughter, Saadia to review Team Conference Summary. As patient continues to struggle with tolerating intensity of therapies as well as her need for regular encouragement. These obstacles have been addressed on several occasions with little fluctuation, due to these concerns Team has recommended patient proceed with SNF placement for a lower level of therapy. Patient and daughter agree with this recommendation, as patient does not feel that she can handle the intensity at this time. Patient has been accepted at [facility]. Team feels comfortable with discharge tomorrow, SNF is agreeable to this as well. TANK FARM ATTENDANT completed [facility][Note 3] Assessment, review IMM and Patient Choice Letter, patient has no concerns regarding discharge. Please see discharge summary for further information.
[2018-10-23 18:00] VITALS: BP 128/74
--- NOTE | 2018-10-23 19:06 | NUR ---
bedside report received from CAROLYNE RODRIGUEZ, assume care of pt
[2018-10-23 20:30] VITALS: BP 131/81
[2018-10-23] MEDS: DILTIAZEM 240 MG (CARDIZEM CD) CAP PO SCH (20:34)
[2018-10-23] MEDS: LOSARTAN 100 MG (COZAAR) TABLET PO SCH (20:34)
--- NOTE | 2018-10-23 20:50 | NUR ---
assessments & interventions completed, see assessments & interventions, up to bathroom with 1 person standby assist & walker, day shift nurse reported stools x3 today & to give Senokot t x1 & no miralax this evening
[2018-10-23] MEDS ORDERED: FAMOTIDINE 20 MG (PEPCID) TABLET PO SCH (21:00)
--- NOTE | 2018-10-23 22:26 | NUR ---
up to bathroom voided & had small loose stool
--- NOTE | 2018-10-23 23:00 | NUR ---
bladder scan showed 200ml urine
--- NOTE | 2018-10-23 23:20 | NUR ---
resting quietly in bed, pain level 0/10 on flacc scale
[2018-10-24 06:00] VITALS: BP 128/59
[2018-10-24] MEDS: BETHANECHOL 25 MG (URECHOLINE) TAB PO SCH ×2 (06:10→12:53)
[2018-10-24] MEDS: CATHETER FLUSH 10 ML SYR IV SCH (06:11)
[2018-10-24] MEDS: ACETAMINOPHEN 325 MG TABLET PO SCH (06:11)
--- NOTE | 2018-10-24 07:14 | NUR ---
bedside report given to ELMA RODRIGUEZ
--- NOTE | 2018-10-24 08:00 | Occupational Ther Daily Note ---
OT Current Status-Daily Note Subjective Pt alert, lying in bed. Pt agrees to therapy. No c/o pain at this time. Pt stated that she is anxious about her heart when she leaves. Also that she did not sleep well last night and is tired this morning. Pt do discharge to [facility] today. Mental Status/Objective Patient Orientation: Person, Place, Time, Situation Therapy Code Descriptions/Definitions Functional [place] Measure: 0=Not Assessed/NA 4=Minimal Assistance 1=Total Assistance 5=Supervision or Setup 2=Maximal Assistance 6=Modified [place] 3=Moderate Assistance 7=Complete [place] Attachments: IV (midline) ADL-Treatment Pt agrees to shower. Pt takes increased time to complete tasks due to decreased activity tolerance resulting in multiple recovery breaks. After therapy, pt sitting in recliner eating breakfast and doing hair. Call light/ phone in reach. All needs met in room. Therapy Code Descriptions/Definitions Functional [place] Measure: 0=Not Assessed/NA 4=Minimal Assistance 1=Total Assistance 5=Supervision or Setup 2=Maximal Assistance 6=Modified [place] 3=Moderate Assistance 7=Complete [place] Therapy Quality Codes: 6 Independent with activity with or without an assistive device 5 Patient requires set up or clean up by helper. Patient completes activity by themselves 4 Supervision or touching assist (CGA). [place] provide cues , steadying assist 3 The helper provides less than half the effort to complete the activity 2 The helper provides more than half the effort to complete the activity 1 Dependent. The helper does all the effort to complete an activity 7 Patient refused to complete or attempt activity 9 The patient did not perform the activity before the current illness or injury 88 Not attempted due to Medical conditions or safety concerns Eating (FIM): 7 (Completes own set up of meals and uses regular utensils to eat.) Eating (QC): 6 Grooming (FIM): 6 (Completes oral care in shower and sitting in room recliner for hair care.) Oral Hygiene (QC): 6 Bathing (FIM): 5 (Supervision. Using grabbars, shower bench and hand held shower pt able to complete bathing and drying by self. Pt sits on bench and leans side to side to cleanse/dry buttocks.) Bathing Location: L Arm, R Arm, L Upper Leg, R Upper Leg, L Lower Leg ( including foot), R Lower Leg (including foot), Chest, Abdomen, Buttocks, Perineal Area Shower/Bathe Self (QC): 4 Upper Body (FIM): 5 (After set up, pt able to complete by self.) Upper Body Dressing (QC): 5 Lower Body Dressing (FIM): 4 (CGA in standing to hike pants due to LOB. Pt able to complete all other steps by self after set up.) Lower Body Dressing (QC): 4 On/Off Footwear (QC): 6 Toileting (FIM): 4 (CGA to manipulate clothing due to unsteadiness. Pt able to cleanse self sitting on toilet. When incontinent pt requires assist to efficiently cleanse for skin integrity.) Toileting Hygiene (QC): 3 Transfers (B, C, W/C) (FIM): 5 (SBA using FWW. Verbal cues to line up with surface prior to sitting.) Toilet/Commode Transfer (FIM): 5 (SBA using FWW, BSC and grabbars.) Toilet Transfer (QC): 4 Shower Transfer(FIM): 5 (SBA using FWW, grabbar and shower bench.) OT Short Term Goals Short Term Goals Time Frame: October 21, 2018 Eating(FIM): 5 Grooming(FIM): 5 Bathing(FIM): 5 Upper Body Dressing(FIM): 5 Lower Body Dressing(FIM): 5 Toileting(FIM): 5 Transfers (B,C,W/C) (FIM): 5 Toilet/Commode Transfer(FIM): 5 Shower Transfer(FIM): 4 Additional Short Term Goals: 1-Demonstrate ADL Tasks, 2-Verbalize Understanding , 3-ImproveStrength/Rafia 1=Demonstrate adherence to instructed precautions during ADL tasks. 2=Patient will verbalize/demonstrate understanding of assistive devices/ modifications for ADL. 3=Patient will improve strength/tolerance for activity to enable patient to perform ADL's. OT Intermediate Goals Social Science Research Assistant Goals Time Frame: November 04, 2018 Eating (FIM): 6 (met-10/24/18) Eating (QC): 6 (met-10/24/18) Groomin (met-10/24/18) Oral Hygiene (QC): 6 (met-10/24/18) Bathing(FIM): 5 (met-10/24/18) Bathing Location: L Arm, R Arm, L Upper Leg, R Upper Leg, L Lower Leg ( including foot), R Lower Leg (including foot), Chest, Abdomen, Buttocks, Perineal Area Shower/Bathe Self (QC): 5 (not met) Upper Body Dressing(FIM): 6 (not met) Upper Body Dressing (QC): 6 (not met) Lower Body Dressing(FIM): 6 (not met) Lower Body Dressing (QC): 6 (not met) On/Off Footwear (QC): 6 (met-10/24/18) Toileting(FIM): 6 (not met) Toileting Hygiene (QC): 6 (not met) Transfers (B,C,W/C) (FIM): 6 (not met) Toilet/Commode Transfer(FIM): 6 (not met) Toilet/Commode Transfer (QC): 6 (not met) Shower Transfer(FIM): 5 (not met) Additional Goals: 1-Demonstrate ADL Tasks, 2-Verbalize Understanding, 3- ImproveStrength/Rafia 1=Demonstrate adherence to instructed precautions during ADL tasks. 2=Patient will verbalize/demonstrate understanding of assistive devices/ modifications for ADL. 3=Patient will improve strength/tolerance for activity to enable patient to perform ADL's. OT Education/Plan Problem List/Assessment Assessment: Decreased Activ Tolerance, Decreased Safety Aware, Impaired Funct Balance, Impaired Self-Care Skills Discharge Recommendations Plan/Recommendations: Continue POC Treatment Plan/Plan of Care Patient would benefit from OT for education, treatment and training to promote independence in ADL's, mobility, safety and/or upper extremity function for ADL' s. Plan of Care: ADL Retraining, Functional Mobility, Group Exercise/Act as Ind, UE Funct Exercise/Act Treatment Duration: November 04, 2018 Frequency: At least 5 of 7 days/Wk (IRF) Estimated Hrs Per Day: 1.5 hours per day Agreement: Yes Rehab Potential: Fair Time/GCodes Start Time: 07:00 Stop Time: 08:00 Total Time Billed (hr/min): 60 Billed Treatment Time 1 visit-ADL 4 (60 min) MAXIMINO FERGUSON October 24, 2018 08:00
[2018-10-24] MEDS ORDERED: FAMO20TA5 PO ×2 (08:18)
[2018-10-24] MEDS ORDERED: HYDR25TA4 PO ×2 (08:18)
[2018-10-24] MEDS ORDERED: ALPR0.254 PO ×2 (08:18)
[2018-10-24] MEDS ORDERED: LOSA100T57 PO ×2 (08:18)
[2018-10-24] MEDS ORDERED: SERT50TA9 PO ×2 (08:18)
[2018-10-24] MEDS ORDERED: PROM25SU10 PR ×2 (08:18)
[2018-10-24] MEDS ORDERED: Bethanechol Chl PO ×2 (08:18)
--- NOTE | 2018-10-24 08:20 | Discharge Inst-Skilled Nursing ---
Discharge Inst-Skilled NF Patient Instructions Patient Problems: Atrial fibrillation s/p ablation Severe debility Depression ESBL UTI s/p treatment Goal: Return to independent living Consult/Follow Up/Orders Follow Up Appt.: Dr Sahu in [address] Greco in 2 weeks Skilled NF Admit to: [facility] Certification ([facility]) I certify that SNF services are required to be given on an inpatient basis because of the above named patient's need for custodial care on a continuing basis for the conditions(s) for which he/she was receiving inpatient hospital services prior to his/her transfer to the [facility]. Assisted Facility Order: Nursing Services, A P Mechanic-Evaluate & Treat, Physical Therapy-Evaluate & Treat Oxygen Delivery Method: Room Air Discharge Diet: No Restrictions Daily Activity as Tolerated: Yes New & Resume Previous Orders Erna Parker October 24, 2018 08:19 ERNA PARKER DO October 24, 2018 08:20
--- NOTE | 2018-10-24 08:23 | Discharge Summary ---
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 (19) Leg weakness (20) Anticoagulant long-term use (21) Atrial fibrillation with rapid ventricular response (22) Transfusion of blood during current hospitalization (23) Self-catheterizes urinary bladder (24) Bacteremia due to Streptococcus (25) Fever (26) UTI (urinary tract infection) (27) UTI due to extended-spectrum beta lactamase (ESBL) producing Escherichia coli (28) Somatization disorder (29) Diarrhea Discharge Summary Discharge Physical Examination Allergies: Coded Allergies: Beta-Blockers (Beta-Adrenergic Bloc (Unverified Allergy, Unknown, 11/20/12) atenolol (Verified Allergy, Unknown, 09/21/18) Vitals & I&Os Vital Signs Date Time Temp Pulse Resp B/P (MAP) Pulse Ox O2 Delivery O2 Flow Rate FiO2 10/24/18 13:30 80 18 124/60 100 Room Air 10/24/18 06:00 97.8 General Appearance: Alert, Oriented X3, Cooperative HEENT: Atraumatic, PERRLA Respiratory: Clear to Auscultation, Normal Air Movement Cardiovascular: Regular Rate, Normal S1, Normal S2, Other (systolic murmur) Neuro: Normal Speech, Other (leaned over ambulation) Hospital Course Was the Problem List Reviewed?: Yes Hospital course: patient had a lengthy hospital course from 10/07/18 until DC to senior living 10/24/18. Patient was admitted to Med-surg and remained for 2 weeks with AF w/RVR and Group B strep sepsis and bacteremia. Cardiology and Pu lmonology both provided consultations. ESBL UTI diagnosed and Dr Greco managed that with Macrobid and in/out catheters to drain neurogenic bladder that she has had on a chronic basis. Patient did undergo atrial ablation with good results it is seemed to help her energy temporarily but had struggles with maintaining the pace of the IRF 3 hour requirement and had multiple somatic complaints with chronic and ongoing nausea which required multiple trials of meds per PCP Dr Sahu. Bowel function returned back to normal and chronic pain issues were improved with schedule Ultram for the time being but did not ultimately require scheduled pain meds at time of DC. Overall she was very weakened and acutely on chronic debility ultimately required admission to OR instead of home as intended but she could participate in a slower rehab program in order to return back home to live independently. Labs (last 24 hrs) Laboratory Tests 10/07/18 10:45: Lab Scanned Report Referred Lab Report 10/08/18 05:34: White Blood Count 6.7, Red Blood Count 3.34L, Hemoglobin 8.7L, Hematocrit 29L, Mean Corpuscular Volume 87, Mean Corpuscular Hemoglobin 26, Mean Corpuscular Hemoglobin Concent 30L, Red Cell Distribution Width 21.4H, Platelet Count 343, Mean Platelet Volume 9.6, Neutrophils (%) (Auto) 67, Lymphocytes (%) (Auto) 21, Monocytes (%) (Auto) 10, Eosinophils (%) (Auto) 2, Basophils (%) (Auto) 0, Neutrophils # (Auto) 4.5, Lymphocytes # (Auto) 1.4, Monocytes # (Auto) 0.7, Eosinophils # (Auto) 0.1, Basophils # (Auto) 0.0, Sodium Level 138, Potassium Level 3.9, Chloride Level 102, Carbon Dioxide Level 25, Anion Gap 11, Blood Urea Nitrogen 12, Creatinine 0.79, Estimat Glomerular Filtration Rate > 60, BUN/Creatinine Ratio 15, Glucose Level 94, Calcium Level 8.7, Corrected Calcium 9.7, Total Bilirubin 0.4, Aspartate Amino Transf (AST/SGOT) 17, Alanine Aminotransferase (ALT/SGPT) 15, Alkaline Phosphatase 72, Total Protein 6.2L, Albumin 2.7L 10/10/18 10:24: Urine Color YELLOW, Urine Clarity CLEAR, Urine pH 6.5, Urine Specific [place] 1.015L, Urine Protein 3+H, Urine Glucose (UA) NEGATIVE, Urine Ketones NEGATIVE, Urine Nitrite NEGATIVE, Urine Bilirubin NEGATIVE, Urine Urobilinogen 1, Urine Leukocyte Esterase 1+H, Urine RBC (Auto) 1+H, Urine RBC RARE, Urine WBC 5-10H, Urine Squamous Epithelial Cells RARE, Urine Crystals NONE, Urine Bacteria LARGEH , Urine Casts NONE, Urine Mucus NEGATIVE, Urine Culture Indicated YES 10/11/18 06:25: White Blood Count 6.8, Red Blood Count 4.02L, Hemoglobin 10.6#L, Hematocrit 35, Mean Corpuscular Volume 87, Mean Corpuscular Hemoglobin 26, Mean Corpuscular Hemoglobin Concent 30L, Red Cell Distribution Width 21.3H, Platelet Count 318, Mean Platelet Volume 9.5, Neutrophils (%) (Auto) 74, Lymphocytes (%) (Auto) 13, Monocytes (%) (Auto) 11, Eosinophils (%) (Auto) 1, Basophils (%) (Auto) 0, Neutrophils # (Auto) 5.0, Lymphocytes # (Auto) 0.9L, Monocytes # (Auto) 0.8, Eosinophils # (Auto) 0.1, Basophils # (Auto) 0.0, Sodium Level 137, Potassium Level 3.8, Chloride Level 101, Carbon Dioxide Level 23, Anion Gap 13, Blood Urea Nitrogen 12, Creatinine 0.89, Estimat Glomerular Filtration Rate > 60, BUN/Creatinine Ratio 13, Glucose Level 95, Calcium Level 9.1, Corrected Calcium 9.7, Total Bilirubin 0.6, Aspartate Amino Transf (AST/SGOT) 18, Alanine Aminotransferase (ALT/SGPT) 19, Alkaline Phosphatase 90, Total Protein 7.4, Albumin 3.3 10/14/18 06:00: White Blood Count 5.0, Red Blood Count 3.67L, Hemoglobin 9.8L, Hematocrit 32L, Mean Corpuscular Volume 88, Mean Corpuscular Hemoglobin 27, Mean Corpuscular Hemoglobin Concent 30L, Red Cell Distribution Width 21.1H, Platelet Count 252, Mean Platelet Volume 9.4, Neutrophils (%) (Auto) 64, Lymphocytes (%) (Auto) 21, Monocytes (%) (Auto) 12, Eosinophils (%) (Auto) 3, Basophils (%) (Auto) 1, Neutrophils # (Auto) 3.2, Lymphocytes # (Auto) 1.0, Monocytes # (Auto) 0.6, Eosinophils # (Auto) 0.1, Basophils # (Auto) 0.0, Sodium Level 137, Potassium Level 3.5L, Chloride Level 101, Carbon Dioxide Level 25, Anion Gap 11, Blood Urea Nitrogen 10, Creatinine 0.75, Estimat Glomerular Filtration Rate > 60, BUN/Creatinine Ratio 13, Glucose Level 94, Calcium Level 9.3, Corrected Calcium 10.0, Total Bilirubin 0.6, Aspartate Amino Transf (AST/SGOT) 15, Alanine Aminotransferase (ALT/SGPT) 18, Alkaline Phosphatase 81, Total Protein 6.9, Albumin 3.1L 10/17/18 05:28: White Blood Count 6.5, Red Blood Count 4.29L, Hemoglobin 11.4L, Hematocrit 38, Mean Corpuscular Volume 87, Mean Corpuscular Hemoglobin 27, Mean Corpuscular Hemoglobin Concent 30L, Red Cell Distribution Width 21.4H, Platelet Count 307, Mean Platelet Volume 10.1, Neutrophils (%) (Auto) 69, Lymphocytes (%) (Auto) 18, Monocytes (%) (Auto) 11, Eosinophils (%) (Auto) 3, Basophils (%) (Auto) 0, Neutrophils # (Auto) 4.4, Lymphocytes # (Auto) 1.1, Monocytes # (Auto) 0.7, Eo sinophils # (Auto) 0.2, Basophils # (Auto) 0.0, Sodium Level 136, Potassium Level 3.4L, Chloride Level 98, Carbon Dioxide Level 25, Anion Gap 13, Blood Urea Nitrogen 13, Creatinine 0.94, Estimat Glomerular Filtration Rate 60, BUN/Creat inine Ratio 14, Glucose Level 87, Calcium Level 10.0, Corrected Calcium 10.2H, Total Bilirubin 0.6, Aspartate Amino Transf (AST/SGOT) 18, Alanine Aminotransferase (ALT/SGPT) 18, Alkaline Phosphatase 100, Total Protein 8.2, Albumin 3.7, Amylase Level 93, Lipase 67 10/23/18 13:08: White Blood Count 8.9, Red Blood Count 4.78, Hemoglobin 12.9#, Hematocrit 41, Mean Corpuscular Volume 86, Mean Corpuscular Hemoglobin 27, Mean Corpuscular Hemoglobin Concent 31L, Red Cell Distribution Width 21.1H, Platelet Count 250, Mean Platelet Volume 10.7H, Neutrophils (%) (Auto) 65, Lymphocytes (%) (Auto) 25, Monocytes (%) (Auto) 9, Eosinophils (%) (Auto) 1, Basophils (%) (Auto) 1, Neutrophils # (Auto) 5.7, Lymphocytes # (Auto) 2.2, Monocytes # (Auto) 0.8, Eosinophils # (Auto) 0.1, Basophils # (Auto) 0.1, Sodium Level 137, Potassium Level 3.9, Chloride Level 99, Carbon Dioxide Level 20L, Anion Gap 18H, Blood Urea Nitrogen 20H, Creatinine 1.25, Estimat Glomerular Filtration Rate 43, BUN/Creatinine Ratio 16, Glucose Level 84, Calcium Level 10.6H, Corrected Calcium 10.6H, Total Bilirubin 0.6, Aspartate Amino Transf (AST/SGOT) 26, Alanine Aminotransferase (ALT/SGPT) 21, Alkaline Phosphatase 118, Total Protein 9.4H, Albumin 4.0, Magnesium Level 1.9 Microbiology 10/23/18 C. difficile GDH Antigen & Toxins - Final, Complete 10/23/18 Urine Culture - Preliminary, Resulted Gram Negative Bacillus 1 Pending Labs Microbiology Date/Time Source Procedure Growth Status 10/23/18 17:00 Stool C. difficile GDH Antigen & Toxins - Final Complete 10/23/18 16:21 Urine Clean Catch Urine Culture - Preliminary Gram Negative Bacillus 1 Resulted 10/10/18 10:24 Urine Straight Cath, In/Out Urine Culture - Final Escherichia coli Complete Laboratory Tests 10/07/18 10:45: Lab Scanned Report Referred Lab Report 10/08/18 05:34: White Blood Count 6.7, Red Blood Count 3.34, Hemoglobin 8.7, Hematocrit 29, Mean Corpuscular Volume 87, Mean Corpuscular Hemoglobin 26, Mean Corpuscular Hemoglobin Concent 30, Red Cell Distribution Width 21.4, Platelet Count 343, Mean Platelet Volume 9.6, Neutrophils (%) (Auto) 67, Lymphocytes (%) (Auto) 21, Monocytes (%) (Auto) 10, Eosinophils (%) (Auto) 2, Basophils (%) (Auto) 0, Neutrophils # (Auto) 4.5, Lymphocytes # (Auto) 1.4, Monocytes # (Auto) 0.7, Eosinophils # (Auto) 0.1, Basophils # (Auto) 0.0, Sodium Level 138, Potassium Level 3.9, Chloride Level 102, Carbon Dioxide Level 25, Anion Gap 11, Blood Urea Nitrogen 12, Creatinine 0.79, Estimat Glomerular Filtration Rate > 60, BUN/Creatinine Ratio 15, Glucose Level 94, Calcium Level 8.7, Corrected Calcium 9.7, Total Bilirubin 0.4, Aspartate Amino Transf (AST/SGOT) 17, Alanine Aminotransferase (ALT/SGPT) 15, Alkaline Phosphatase 72, Total Protein 6.2, Albumin 2.7 10/10/18 10:24: Urine Color YELLOW, Urine Clarity CLEAR, Urine pH 6.5, Urine Specific [place] 1.015, Urine Protein 3+, Urine Glucose (UA) NEGATIVE, Urine Ketones NEGATIVE, Urine Nitrite NEGATIVE, Urine Bilirubin NEGATIVE, Urine Urobilinogen 1, Urine Leukocyte Esterase 1+, Urine RBC (Auto) 1+, Urine RBC RARE, Urine WBC 5-10, Urine Squamous Epithelial Cells RARE, Urine Crystals NONE, Urine Bacteria LARGE, Urine Casts NONE, Urine Mucus NEGATIVE, Urine Culture Indicated YES 10/11/18 06:25: White Blood Count 6.8, Red Blood Count 4.02, Hemoglobin 10.6, Hematocrit 35, Mean Corpuscular Volume 87, Mean Corpuscular Hemoglobin 26, Mean Corpuscular Hemoglobin Concent 30, Red Cell Distribution Width 21.3, Platelet Count 318, Mean Platelet Volume 9.5, Neutrophils (%) (Auto) 74, Lymphocytes (%) (Auto) 13, Monocytes (%) (Auto) 11, Eosinophils (%) (Auto) 1, Basophils (%) (Auto) 0, Neutrophils # (Auto) 5.0, Lymphocytes # (Auto) 0.9, Monocytes # (Auto) 0.8, Eos inophils # (Auto) 0.1, Basophils # (Auto) 0.0, Sodium Level 137, Potassium Level 3.8, Chloride Level 101, Carbon Dioxide Level 23, Anion Gap 13, Blood Urea Nitrogen 12, Creatinine 0.89, Estimat Glomerular Filtration Rate > 60, BUN/Creatinine Ratio 13, Glucose Level 95, Calcium Level 9.1, Corrected Calcium 9.7, Total Bilirubin 0.6, Aspartate Amino Transf (AST/SGOT) 18, Alanine Amino transferase (ALT/SGPT) 19, Alkaline Phosphatase 90, Total Protein 7.4, Albumin 3.3 10/14/18 06:00: White Blood Count 5.0, Red Blood Count 3.67, Hemoglobin 9.8, Hematocrit 32, Mean Corpuscular Volume 88, Mean Corpuscular Hemoglobin 27, Mean Corpuscular Hemoglobin Concent 30, Red Cell Distribution Width 21.1, Platelet Count 252, Mean Platelet Volume 9.4, Neutrophils (%) (Auto) 64, Lymphocytes (%) (Auto) 21, Monocytes (%) (Auto) 12, Eosinophils (%) (Auto) 3, Basophils (%) (Auto) 1, Neutrophils # (Auto) 3.2, Lymphocytes # (Auto) 1.0, Monocytes # (Auto) 0.6, Eosinophils # (Auto) 0.1, Basophils # (Auto) 0.0, Sodium Level 137, Potassium Level 3.5, Chloride Level 101, Carbon Dioxide Level 25, Anion Gap 11, Blood Urea Nitrogen 10, Creatinine 0.75, Estimat Glomerular Filtration Rate > 60, BUN/Creatinine Ratio 13, Glucose Level 94, Calcium Level 9.3, Corrected Calcium 10.0, Total Bilirubin 0.6, Aspartate Amino Transf (AST/SGOT) 15, Alanine Aminotransferase (ALT/SGPT) 18, Alkaline Phosphatase 81, Total Protein 6.9, Albumin 3.1 10/17/18 05:28: White Blood Count 6.5, Red Blood Count 4.29, Hemoglobin 11.4, Hematocrit 38, Mean Corpuscular Volume 87, Mean Corpuscular Hemoglobin 27, Mean Corpuscular Hemoglobin Concent 30, Red Cell Distribution Width 21.4, Platelet Count 307, Mean Platelet Volume 10.1, Neutrophils (%) (Auto) 69, Lymphocytes (%) (Auto) 18, Monocytes (%) (Auto) 11, Eosinophils (%) (Auto) 3, Basophils (%) (Auto) 0, Neutrophils # (Auto) 4.4, Lymphocytes # (Auto) 1.1, Monocytes # (Auto) 0.7, Eosinophils # (Auto) 0.2, Basophils # (Auto) 0.0, Sodium Level 136, Potassium Level 3.4, Chloride Level 98, Carbon Dioxide Level 25, Anion Gap 13, Blood Urea Nitrogen 13, Creatinine 0.94, Estimat Glomerular Filtration Rate 60, BUN/Creatinine Ratio 14, Glucose Level 87, Calcium Level 10.0, Corrected Calcium 10.2, Total Bilirubin 0.6, Aspartate Amino Transf (AST/SGOT) 18, Alanine Aminotransferase (ALT/SGPT) 18, Alkaline Phosphatase 100, Total Protein 8.2, Albumin 3.7, Amylase Level 93, Lipase 67 10/23/18 13:08: White Blood Count 8.9, Red Blood Count 4.78, Hemoglobin 12.9, Hematocrit 41, Mean Corpuscular Volume 86, Mean Corpuscular Hemoglobin 27, Mean Corpuscular Hemoglobin Concent 31, Red Cell Distribution Width 21.1, Platelet Count 250, Mean Platelet Volume 10.7, Neutrophils (%) (Auto) 65, Lymphocytes (%) (Auto) 25, Monocytes (%) (Auto) 9, Eosinophils (%) (Auto) 1, Basophils (%) (Auto) 1, Neutrophils # (Auto) 5.7, Lymphocytes # (Auto) 2.2, Monocytes # (Auto) 0.8, Eosinophils # (Auto) 0.1, Basophils # (Auto) 0.1, Sodium Level 137, Potassium Level 3.9, Chloride Level 99, Carbon Dioxide Level 20, Anion Gap 18, Blood Urea Nitrogen 20, Creatinine 1.25, Estimat Glomerular Filtration Rate 43, BUN/Creatinine Ratio 16, Glucose Level 84, Calcium Level 10.6, Corrected Calcium 10.6, Total Bilirubin 0.6, Aspartate Amino Transf (AST/SGOT) 26, Alanine Aminotransferase (ALT/SGPT) 21, Alkaline Phosphatase 118, Total Protein 9.4, Albumin 4.0, Magnesium Level 1.9 Discharge Home Medications: Active Scripts Active Miralax (Polyethylene Glycol 3350) 17 Gm Powd.pack 17 Gm PO DAILY Macrobid 100 mg Capsule (Nitrofurantoin Monohyd/M-Cryst) 100 Mg Capsule 1 Tab PO BID Senna-Time S Tablet (Sennosides/Docusate Sodium) 1 Each Tablet 2 Ea PO BID Famotidine 20 Mg Tablet 20 Mg PO BID 30 Days Hydrochlorothiazide 25 Mg Tablet 25 Mg PO DAILY 30 Days Alprazolam 0.25 Mg Tablet 0.25 Mg PO TID PRN Sertraline HCl 50 Mg Tablet 50 Mg PO BID 30 Days Losartan Potassium 100 Mg Tablet 100 Mg PO HS 30 Days Phenadoz (Promethazine HCl) 25 Mg Supp 25 Mg VA Q6HR PRN 30 Days [Bethanechol Chl] 25 MG Tab 50 Mg PO ACHS 30 Days Ondansetron HCl 4 Mg Tablet 4 Mg PO Q4H Child Chew + Iron (Multivitamins with Iron) 1 Each Tab.chew 1 Each PO DAILY Reported Cartia Xt (Diltiazem HCl) 240 Mg Cap.er.24h 240 Mg PO HS Vitamin D3 (Cholecalciferol (Vitamin D3)) 1,000 Unit Capsule 1,000 Unit PO DAILY Tylenol Extra Strength (Acetaminophen) 500 Mg Tablet 1,000 Mg PO TID TAKES 2 (500MG) TABLETS Instructions to patient/family Please see electronic discharge instructions given to patient. Diagnosis/Problems Diagnosis/Problems (1) Myopathy (2) Atrial fibrillation with rapid ventricular response Status: Acute (3) Palpitations Status: Acute (4) Nausea Status: Acute (5) Headache Status: Acute (6) Atrial fibrillation Status: Chronic (7) Iron deficiency Status: Chronic (8) Fever Status: Acute (9) Urinary retention (10) Anemia Status: Chronic (11) Depression Status: Chronic (12) Dyspnea Status: Acute (13) Edema Status: Acute (14) Cardiac murmur Status: Chronic (15) GERD (gastroesophageal reflux disease) Status: Chronic (16) Cancer of spinal column Status: Chronic (17) Debility Status: Acute (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 (19) Leg weakness Status: Acute (20) Anticoagulant long-term use Status: Chronic (21) Atrial fibrillation with rapid ventricular response Status: Chronic (22) Transfusion of blood during current hospitalization Status: Acute (23) Self-catheterizes urinary bladder Status: Acute (24) Bacteremia due to Streptococcus Status: Acute (25) Fever (26) UTI (urinary tract infection) (27) UTI due to extended-spectrum beta lactamase (ESBL) producing Escherichia coli (28) Somatization disorder (29) Diarrhea Clinical Quality Measures DVT/VTE Risk/Contraindication: Risk Factor Score Per Nursin RFS Level Per Nursing on Admit: 2=Moderate YURI MARSHALL DO October 24, 2018 08:23
--- NOTE | 2018-10-24 08:34 | Cardiology Progress Note ---
Subjective Date Seen by Provider: October 24, 2018 Time Seen by Provider: 08:05 Subjective/Events-last exam Patient sitting up in chair, reports nausea much improved since stopping Protonix. Denies any chest pain or dyspnea. Objective-Cardiology Exam Last Set of Vital Signs Vital Signs 10/24/18 10/24/18 06:00 07:00 Temp 97.8 Pulse 83 Resp 18 B/P (MAP) 128/59 (82) Pulse Ox 100 O2 Delivery Room Air Capillary Refill : I&O Intake and Output 10/24/18 00:00 Intake Total 650 ml Output Total 365 ml Balance 285 ml Intake Oral 650 ml Output Urine Total 365 ml Bladder Scan Volume Amount 281 ml # Voids 4 # Bowel Movements 4 General: Alert, Oriented X3, Cooperative HEENT: Atraumatic, PERRLA Neck: Supple, No JVD, No Thyromegaly Lungs: Clear to Auscultation, Normal Air Movement Heart: Regular Rate, Normal S1, Normal S2, Other (SM at LSB) Abdomen: Normal Bowel Sounds, Soft, No Tenderness, No Hepatosplenomegaly, No Masses Extremities: No Clubbing, No Cyanosis, No Edema, Normal Pulses, No Tenderness/ Swelling Skin: No Rashes, No Breakdown, No Significant Lesion Neuro: Normal Gait, Normal Speech, Strength at 5/5 X4 Ext, Normal Tone, Sensation Intact Psych/Mental Status: Mental Status NL, Mood NL Results Lab Laboratory Tests 10/23/18 13:08 A/P-Cardiology Admission Diagnosis Strep bacteremia Atrial fibrillation/flutter Anemia Generalized debility Assessment/Plan Status post Streptococcus bacteremia, fever and chills and generalized weakness , started on Rocephin and vancomycin, managed by primary care physician, TITUS done 09/23/18 revealed mild with no vegetation to valves, received Rocephin for 11 days last dose on 10/04, received 4 days of Vanco. Better at this time, continue to monitor ESBL UTI- management per PCP Hypertension, controlled, continue to monitor. Generalized debility/weakness- continue PT Paroxysmal atrial fibrillation/flutter, s/p atrial flutter ablation done by Dr. Martinez on 10/18/18. Intolerant to amiodarone secondary to nausea and tremors, currently SR, continues to have persistent nausea, had transient episode of palpitation which appeared to have sinus rhythm with first-degree AV block and occasional nonconducted atrial beats. Resolved spontaneously. No further episodes were noted. Anemia, has been on iron supplement, s/p blood transfusion. Currently off all OAC. EGD/colonoscopy done revealed no active bleeding, continue to monitor H&H History of chronic anticoagulation, had GI bleed on Pradaxa, intolerant to Coumadin. Xarelto was discontinued secondary to worsening anemia History of multiple episodes of GI bleed. Had workup done by Dr. Alberts and she was restarted on Xarelto, stopped for now and monitor H&H, reportedly had AVM as a source of the intermittent GI bleed Questionable underlying sleep apnea, Dr. Cheng following. Status post iron transfusion with questionable allergic reaction, had similar reaction to different iron product with generalized weakness and generalized body ache, has been managed by Dr. Nicholas History of abnormal baseline EKG with first-degree AV block and right bundle branch block, right ventricular hypertrophy pattern. History of syncope while on atenolol was unable to tolerate the medication in the past. History of pancreatic nodule, had workup with Dr. Alberts Family history of CVA Ok for discharge from Cardiology standpoint. Follow up with Dr. Martinez in 1-[address] Mcfarland in 4 weeks. Clinical Quality Measures DVT/VTE Risk/Contraindication: Risk Factor Score Per Nursin RFS Level Per Nursing on Admit: 2=Moderate RUBIO KOHLI October 24, 2018 08:34
[2018-10-24] MEDS ORDERED: FAMOTIDINE 20 MG (PEPCID) TABLET PO SCH (09:00)
--- NOTE | 2018-10-24 09:03 | Physical Therapy Daily Note ---
PT Daily Note-Current Subjective Pt sitting in recliner fixing hair upon arrival. Pt agrees to PT. Pt is a little reluctant to D/C, nervous to go to SNF. Pain Location: No Pain Reported Mental Status Patient Orientation: Person, Place, Situation Transfers Therapy Code Descriptions/Definitions Functional Baxter Measure: 0=Not Assessed/NA 4=Minimal Assistance 1=Total Assistance 5=Supervision or Setup 2=Maximal Assistance 6=Modified Baxter 3=Moderate Assistance 7=Complete Baxter Therapy Quality Codes: 6 Independent with activity with or without an assistive device 5 Patient requires set up or clean up by helper. Patient completes activity by themselves 4 Supervision or touching assist (CGA). Teachey provide cues , steadying assist 3 The helper provides less than half the effort to complete the activity 2 The helper provides more than half the effort to complete the activity 1 Dependent. The helper does all the effort to complete an activity 7 Patient refused to complete or attempt activity 9 The patient did not perform the activity before the current illness or injury 88 Not attempted due to Medical conditions or safety concerns Transfers (B, C, W/C) (FIM): 4 Scootin Rollin Roll Left to Right (QC): 5 Supine to/from Sit: 5 Sit to/from Stand: 4 Sit to Lying (QC): 4 Sit to Stand (QC): 4 Chair/Qpg-fu-Agnpu Xfer(QC): 4 Bed to/from Chair: 4 Car Transfer (QC): 4 Pt needs VC to complete tasks safely. Pt is a little weak this morning. Weight Bearing Right Lower Extremity: Right Full Weight Bearing Left Lower Extremity: Left Full Weight Bearing Gait Training Does the Patient Walk?: Yes Gait (FIM): 4 Distance (FIM): 3=150 ft Distance: 150' Walk 10 feet (QC): 5 Walk 50 ft with 2 Turns(QC): 5 Walk 150 ft (QC): 4 Walking 10ft/uneven surface-QC: 4 Gait Level of Assist: 4 Gait Persons Needed: 1 Gait Assistive Device: FWW Pt walks with kyphotic posture. Pt is encouraged to stand a little taller. This posture cannot be maintained due to core weakness. Wheelchair Training Does the Pt Use a Wheelchair?: No Stair Training Stair Training: Handrails/: uses walker Stairs (FIM): 1 #of Steps: 1 1 Step (curb) (QC): 4 4 Steps (QC): 88 12 Steps (QC): 88 Stairs: Pattern: Step to Level of Assist: 4 Pt needs VC for sequencing. Balance Picking up an Object (QC): 88 Special Test Comments This is not tested due to safety for balance. Exercises Supine Ex: Straight leg raise Supine Reps: 5 Treatments Pt completes bed mobility, transfers including car transfer, ambulation including across varying surface. Pt is not able to complete picking up object from floor and steps for more than 1 curb step due to lack of strength and balance. Pt returns to room to rest in recliner at end of tx with all needs met. Assessment Current Status: Fair Progress Pt has made progress with transfers and ambulation in time on ARU. Pt still demonstrates lack of strength, fatigues easily and difficulty with balance at times. Pt also demonstrates lack of social awareness and feels that she can complete tasks safer than is demonstrated. PT Short Term Goals Short Term Goals Time Frame: October 14, 2018 Transfers (B,C,W/C) (FIM): 5 Gait (FIM): 2 Distance (FIM): 9=783-64 ft Gait Assistive Device: FWW Wheelchair Distance: 100' PT Auto Repair Shop Manager Goals [facility] Goals PT Auto Repair Shop Manager Goals Time Frame: October 25, 2018 Transfers (B,C,W/C) (FIM): 7 Sit to Lying (QC): 6 Lying-Sitting on Side/Bed(QC): 6 Sit to Stand (QC): 6 Rollin Roll Left to Right (QC): 6 Chair/Sng-ol-Oftap Xfer(QC): 6 Car Transfer (QC): 6 Does the Patient Walk: Yes Gait (FIM): 6 Gait distance (FIM): 3=150 ft Walk 10 feet (QC): 6 Walk 10ft-Uneven Surface(QC): 5 Walk 50ft with 2 Turns (QC): 6 Walk 150 ft (QC): 6 Gait Assistive Device: FWW Does the Pt use WC or Scooter?: No Stairs (FIM): 2 # of Steps: 1 1 Step (curb) (QC): 6 4 Steps (QC): 88 12 Steps (QC): 88 Picking up an Object (QC): 88 PT Plan Problem List Problem List: Activity Tolerance, Functional Strength, Safety, Balance Treatment/Plan Treatment Plan: Continue Plan of Care Treatment Plan: Bed Mobility, Education, Functional Activity Rafia, Functional Strength, Group Therapy, Gait, Safety, Therapeutic Exercise, Transfers Treatment Duration: October 25, 2018 Frequency: At least 5 of 7 days/Wk (IRF) Estimated Hrs Per Day: 1.5 hours per day Patient and/or Family Agrees t: Yes Safety Risks/Education Patient Education: Gait Training, Transfer Techniques, Steps, Correct Positioning, Safety Issues Teaching Recipient: Patient Teaching Methods: Discussion Response to Teaching: Verbalize Understanding, Reinforcement Needed Time/GCodes Time In: 815 Time Out: 850 Total Billed Treatment Time: 35 Total Billed Treatment 1, FA x2 (35m) G Codes Necessary: SINGH Jeffries PTA October 24, 2018 09:03
[2018-10-24] MEDS: SERTRALINE 50 MG (ZOLOFT) TABLET PO SCH (10:01)
[2018-10-24] MEDS: VITAMIN D3 1,000 UNITS (CHOLECALCIFEROL) TABLET PO SCH (10:01)
[2018-10-24] MEDS: HYDROCHLOROTHIAZIDE 25 MG (HCTZ) TAB PO SCH (10:02)
[2018-10-24] MEDS: POLYETHYLENE GLYCOL 17 GM (MIRALAX) PACK PO SCH (10:04)
[2018-10-24] MEDS: SENNA W/DOCUSATE (SENOKOT S) TABLET PO SCH (10:04)
--- NOTE | 2018-10-24 10:16 | Cardiology Progress Note ---
Cardiology SOAP Progress Note Subjective: No cardiac complaints. Improved nausea and belly discomfort. Objective: I&O/Vital Signs 10/24/18 10/24/18 10/24/18 01:00 06:00 07:00 Temp 97.8 Pulse 92 67 83 Resp 18 B/P (MAP) 128/59 (82) Pulse Ox 100 O2 Delivery Room Air 10/24/18 00:00 Intake Total 500 ml Balance 500 ml Weight (Pounds): 160 Weight (Ounces): 13.1 Weight (Calculated Kilograms): 72.632167 Constitutional: No appears stated age, No AAO x 3, No apparent distress, No PERRL, No well-developed, No well-nourished, No other Respiratory: No accessory muscle use, No respiratory distress, No chest tender , No chest expansion is symmetric; chest is bilaterally symmetric; No lungs clear to percussion; lungs clear to auscultation; No crackles, No rhonchi, No rales, No stridor, No wheezing, No pleural rub, No other Cardiovascular: regular rate-rhythm; No irregularly irregular, No extra beats, No parasternal heave is noted, No JVD, No edema, No bradycardia, No tachycardia , No point of maximal impulse, No cardiac thrills are palpable; S1 and S2; No gallop/S3, No gallop/S4, No diastolic murmur, No systolic murmur, No friction rub, No click, No other Gastrointestional: No tender, No soft, No round, No distended, No pulsatile mass, No organomegaly, No guarding, No rebound, No tenderness, No hernia, No mass, No audible bowel sounds, No abnormal bowel sounds, No abdominal bruits, No spleenomegaly, No other Extremities: No normal range of motion, No non-tender, No normal inspection, No pedal edema, No calf tenderness, No normal capillary refill, No pelvis stable , No calf tenderness, No inflammation, No pedal edema, No slow capillary refill , No swelling, No other, No abrasion, No clubbing, No cyanosis, No ecchymosis, No laceration, No no lower extremity edema bilateral, No significant edema, No tenderness, No wound Neurologic/Psychiatric: no motor/sensory deficits, alert, normal mood/affect, oriented x 3 Skin: pallor Results/Procedures: Labs Laboratory Tests 10/23/18 13:08: White Blood Count 8.9, Red Blood Count 4.78, Hemoglobin 12.9#, Hematocrit 41, Mean Corpuscular Volume 86, Mean Corpuscular Hemoglobin 27, Mean Corpuscular Hemoglobin Concent 31L, Red Cell Distribution Width 21.1H, Platelet Count 250, Mean Platelet Volume 10.7H, Neutrophils (%) (Auto) 65, Lymphocytes (%) (Auto) 25 , Monocytes (%) (Auto) 9, Eosinophils (%) (Auto) 1, Basophils (%) (Auto) 1, Neutrophils # (Auto) 5.7, Lymphocytes # (Auto) 2.2, Monocytes # (Auto) 0.8, Eosinophils # (Auto) 0.1, Basophils # (Auto) 0.1, Sodium Level 137, Potassium Level 3.9, Chloride Level 99, Carbon Dioxide Level 20L, Anion Gap 18H, Blood Urea Nitrogen 20H, Creatinine 1.25, Estimat Glomerular Filtration Rate 43, BUN/ Creatinine Ratio 16, Glucose Level 84, Calcium Level 10.6H, Corrected Calcium 10.6H, Magnesium Level 1.9, Total Bilirubin 0.6, Aspartate Amino Transf (AST/ SGOT) 26, Alanine Aminotransferase (ALT/SGPT) 21, Alkaline Phosphatase 118, Total Protein 9.4H, Albumin 4.0 Microbiology 10/23/18 C. difficile GDH Antigen & Toxins - Final, Complete 10/10/18 Urine Culture - Final, Complete Escherichia coli A/P: Assessment/Dx: Typical atrial flutter, status post CTI ablation, Paroxysmal atrial fibrillation, Recent GI bleeding, UTI sepsis recent, ESBL. Plan: Typical atrial flutter, at least one episode which degenerated into atrial fibrillation. During typical atrial flutter Dr. Mcfarland gave adenosine which caused AV block and brought out for typical atrial flutter waves. I discussed at length with the patient, family, Dr. Mcfarland and Dr. Sahu and scheduled the patient for CTI dependent flutter ablation which was done on 10/18/2018. Successful bidirectional block during the procedure. Paroxysmal atrial fibrillation, currently in sinus rhythm. Amiodarone discontinued due to tremor. No oral anticoagulation due to recent GI bleeding. Consider other antiarrhythmic therapy; was restarted on propafenone. I did discuss with the patient and daughter about left atrial appendage closure as a therapy to prevent stroke in a patient with paroxysmal atrial fibrillation who cannot take oral anticoagulation. 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 No atrial flutter or atrial fibrillation. Recent GI bleeding, not on any anticoagulation at this point in time. Dr. Mcfarland following as well. ESBL Escherichia coli UTI, recovering. Recent sepsis. Thank you for your consultation. Please call me if you have any questions. Jay Martinez MD, FACP, FACC, FSCAI, FHRS, CCDS Interventional Cardiology Cardiac Electrophysiology Vascular Medicine and Endovascular Interventions Tracy MARTINEZ MD October 24, 2018 10:16
--- NOTE | 2018-10-24 11:14 | Therapy Team Discharge Summary ---
Therapy Discharge Summary Discharge Recommendations Date of Discharge 10/24/2018 Therapy D/C Recommendations: 24 hr Supervision, Long-Term (TCU/NH) (PT) Physical Therapy This patient was admitted to ARU post acute hospital stay. She was admitted originally to acute due fever and weakness post iron infusion. She was transferred to ARU due to continued weakness and inability to safely return home. Upon admission to this unit, she required mod assist with transfers, ambulated very short distances with mod assist and FWW and was unable to attempt a stair. Treatment has focused on functional strength training with balance to improve her ability to perform bed mobility, transfers and ambulation. Her participation and ability to perform has waxed and waned due to complaints of nausea and functional weakness that at times limited standing or gait. However, at last visit, she was able to transfer with CGA and walk 150 ft with FWW with CGA. Her functional activity tolerance and performance have improved but not to a level to return home safely alone. Pt to discharge to LTC facility, recommend continued PT to progress mobility with the goal to return home. DC PT this date. Occupational Therapy Decreased Activ Tolerance, Decreased UE Strength, Impaired Coordination, Impaired Funct Balance, Impaired Self-Care Skills PT Silk Spotter Goals Long-Term Goals PT Silk Spotter Goals Time Frame: October 25, 2018 Transfers (B,C,W/C) (FIM): 7 Roll Left to Right (QC): 6 Sit to Lying (QC): 6 Lying-Sitting on Side/Bed(QC): 6 Sit to Stand (QC): 6 Chair/Rxc-fd-Kjery Xfer(QC): 6 Car Transfer (QC): 6 Does the Patient Walk: Yes Gait (FIM): 6 Gait distance (FIM): 3=150 ft Walk 10 feet (QC): 6 Walk 10ft-Uneven Surface(QC): 5 Walk 50ft with 2 Turns (QC): 6 Walk 150 ft (QC): 6 Gait Assistive Device: FWW Does the Pt use WC or Scooter?: No Stairs (FIM): 2 # of Steps: 1 1 Step (curb) (QC): 6 4 Steps (QC): 88 12 Steps (QC): 88 Picking up an Object (QC): 88 Goals unmet at this time; recommend continued PT at LTC OT Silk Spotter Goals Long-Term Goals Time Frame: November 04, 2018 Eating (FIM): 6 Eating (QC): 6 Oral Hygiene (QC): 6 Grooming(FIM): 6 Bathing(FIM): 5 Shower/Bathe Self (QC): 5 Upper Body Dressing(FIM): 6 Upper Body Dressing (QC): 6 Lower Body Dressing(FIM): 6 Lower Body Dressing (QC): 6 On/Off Footwear (QC): 6 Toileting(FIM): 6 Toileting Hygiene (QC): 6 Transfers (B,C,W/C) (FIM): 6 Toilet/Commode Transfer(FIM): 6 Toilet/Commode Transfer (QC): 6 Shower Transfer(FIM): 5 Additional Goals: 1-Demonstrate ADL Tasks, 2-Verbalize Understanding, 3- ImproveStrength/Rafia 1=Demonstrate adherence to instructed precautions during ADL tasks. 2=Patient will verbalize/demonstrate understanding of assistive devices/ modifications for ADL. 3=Patient will improve strength/tolerance for activity to enable patient to perform ADL's. MAXIMINO TRACY PT October 24, 2018 11:14
--- NOTE | 2018-10-24 11:21 | NUR ---
[employer] faxed discharge orders and [place] Care Assessment to [facility]. Facility will provide wheelchair van transport at 1pm today. [employer] also faxed [place] Care Assessment to [facility]. Please see DC summary for further information.
[2018-10-24] MEDS ORDERED: SENN-20 PO ×2 (12:44)
[2018-10-24] MEDS ORDERED: NITR-65 PO ×2 (12:46)
[2018-10-24] MEDS ORDERED: POLY17PO6 PO ×2 (12:48)
--- NOTE | 2018-10-24 12:51 | Progress Note (SOAP) ---
Subjective Date Seen by a Provider: October 24, 2018 Time Seen by a Provider: 12:49 Subjective/Events-last exam Fwup beta strep bacteremia, paroxysmal atrial fibrillation, chronic anemia, IV iron transfusion reaction, weakness, colonic polyps, history of AVMs on capsule endoscopy, urinary retention, nausea, constipation. Still with nausea but improved but feeling like UTI symptoms. Objective Exam Vital Signs Date Time Temp Pulse Resp B/P (MAP) Pulse Ox O2 Delivery O2 Flow Rate FiO2 10/24/18 07:00 83 10/24/18 06:00 97.8 67 18 128/59 (82) 100 Room Air 10/24/18 01:00 92 10/23/18 20:50 Room Air 10/23/18 20:30 97.6 85 18 131/81 (98) 100 Room Air 10/23/18 19:00 88 10/23/18 18:00 97.9 85 18 128/74 (92) 97 Room Air 10/23/18 13:00 80 I & O 10/24/18 07:00 Intake Total 900 ml Balance 900 ml Capillary Refill : General Appearance: No Apparent Distress Neck: Supple Respiratory: Lungs Clear Cardiovascular: Regular Rate, Rhythm, Systolic Murmur Gastrointestinal: normal bowel sounds, non tender, soft Extremity: Non Tender, No Calf Tenderness, No Pedal Edema Neurologic/Psychiatric: Alert, Oriented x3 Results Lab Laboratory Tests 10/23/18 13:08: White Blood Count 8.9, Red Blood Count 4.78, Hemoglobin 12.9#, Hematocrit 41, Mean Corpuscular Volume 86, Mean Corpuscular Hemoglobin 27, Mean Corpuscular Hemoglobin Concent 31L, Red Cell Distribution Width 21.1H, Platelet Count 250, Mean Platelet Volume 10.7H, Neutrophils (%) (Auto) 65, Lymphocytes (%) (Auto) 25 , Monocytes (%) (Auto) 9, Eosinophils (%) (Auto) 1, Basophils (%) (Auto) 1, Neutrophils # (Auto) 5.7, Lymphocytes # (Auto) 2.2, Monocytes # (Auto) 0.8, Eosinophils # (Auto) 0.1, Basophils # (Auto) 0.1, Sodium Level 137, Potassium Level 3.9, Chloride Level 99, Carbon Dioxide Level 20L, Anion Gap 18H, Blood Urea Nitrogen 20H, Creatinine 1.25, Estimat Glomerular Filtration Rate 43, BUN/ Creatinine Ratio 16, Glucose Level 84, Calcium Level 10.6H, Corrected Calcium 10.6H, Magnesium Level 1.9, Total Bilirubin 0.6, Aspartate Amino Transf (AST/ SGOT) 26, Alanine Aminotransferase (ALT/SGPT) 21, Alkaline Phosphatase 118, Total Protein 9.4H, Albumin 4.0 Microbiology 10/23/18 C. difficile GDH Antigen & Toxins - Final, Complete 10/10/18 Urine Culture - Final, Complete Escherichia coli Assessment/Plan Assessment/Plan Assess & Plan/Chief Complaint 1. Recent Strep Bacteremia--resolved 2. Paroxyxmal Atrial Fibrillation--back in NSR, amiodarone DCed due to side effects, anticoagulants on hold due to anemia, S/P right heart ablation 3. Iron Deficiency Anemia--H/H improved post transfusion and with hold of anticoagulants--Hgb stable 4. Hypertension--stable 5. Urinary Retention--on urecholine 6. Weakness--patient making progress with PT/OT 7. Nausea--using zofran prn 8. Constipation--improved 9. ESBL positive UTI--looks like another UTI so will resume macrobid until urine culture results available 10. To SNF today Clinical Quality Measures DVT/VTE Risk/Contraindication: Risk Factor Score Per Nursin RFS Level Per Nursing on Admit: 2=Moderate ANTHONY PERDOMO DO October 24, 2018 12:51
[2018-10-24 13:30] VITALS: BP 124/60
--- NOTE | 2018-10-28 10:06 | Therapy Team Discharge Summary ---
Therapy Discharge Summary Discharge Recommendations Date of Discharge October 24, 2018 at 13:30 Therapy D/C Recommendations: 24 hr Supervision, Nursing Home (TCU/NH) (PT) Occupational Therapy Pt. has been seen by occupational therapy to increase overall independence with daily skills. Pt. did not meet goals of LE dressing, toileting, transfers. Required assistance at discharge. Discharged to long term facility with 24 hour care. Pt. will continue with skilled therapy to continue improving overall independence with daily skills. At discharge, pt. required mod/min assist with most LE tasks. Required SBA with bathing/UE dressing. Further equipment needs will be addressed at SNF. Decreased Activ Tolerance, Decreased Safety Aware, Decreased UE Strength, Dependent Transfers, Impaired Bed Mobility, Impaired Funct Balance, Impaired I ADL's, Impaired Self-Care Skills PT Senior Care Goals Instrumentation Manager Goals PT Instrumentation Manager Goals Time Frame: October 25, 2018 Transfers (B,C,W/C) (FIM): 7 Roll Left to Right (QC): 6 Sit to Lying (QC): 6 Lying-Sitting on Side/Bed(QC): 6 Sit to Stand (QC): 6 Chair/Syb-tt-Wrosa Xfer(QC): 6 Car Transfer (QC): 6 Does the Patient Walk: Yes Gait (FIM): 6 Gait distance (FIM): 3=150 ft Walk 10 feet (QC): 6 Walk 10ft-Uneven Surface(QC): 5 Walk 50ft with 2 Turns (QC): 6 Walk 150 ft (QC): 6 Gait Assistive Device: FWW Does the Pt use WC or Scooter?: No Stairs (FIM): 2 # of Steps: 1 1 Step (curb) (QC): 6 4 Steps (QC): 88 12 Steps (QC): 88 Picking up an Object (QC): 88 OT Instrumentation Manager Goals Instrumentation Manager Goals Time Frame: November 04, 2018 Eating (FIM): 6 (met-10/24/18) Eating (QC): 6 (met-10/24/18) Oral Hygiene (QC): 6 (met-10/24/18) Grooming(FIM): 6 (met-10/24/18) Bathing(FIM): 5 (met-10/24/18) Bathing Location: L Arm, R Arm, L Upper Leg, R Upper Leg, L Lower Leg (including foot), R Lower Leg (including foot), Chest, Abdomen, Buttocks, Perineal Area Shower/Bathe Self (QC): 5 (not met) Upper Body Dressing(FIM): 6 (not met) Upper Body Dressing (QC): 6 (not met) Lower Body Dressing(FIM): 6 (not met) Lower Body Dressing (QC): 6 (not met) On/Off Footwear (QC): 6 (met-10/24/18) Toileting(FIM): 6 (not met) Toileting Hygiene (QC): 6 (not met) Transfers (B,C,W/C) (FIM): 6 (not met) Toilet/Commode Transfer(FIM): 6 (not met) Toilet/Commode Transfer (QC): 6 (not met) Shower Transfer(FIM): 5 (not met) Additional Goals: 1-Demonstrate ADL Tasks, 2-Verbalize Understanding, 3- ImproveStrength/Rafia 1=Demonstrate adherence to instructed precautions during ADL tasks. 2=Patient will verbalize/demonstrate understanding of assistive devices/modifications for ADL. 3=Patient will improve strength/tolerance for activity to enable patient to perform ADL's. SADE YATES OT October 28, 2018 10:05
== END 2018-10-24 13:30 | DRG 92 ==
PROVIDERS: ADMIT Internal Medicine; ATTEND Internal Medicine
DX: G72.9 Myopathy, unspecified (principal); I48.0 Paroxysmal atrial fibrillation; I48.92 Unspecified atrial flutter; N39.0 Urinary tract infection, site not specified; R33.9 Retention of urine, unspecified; I10 Essential (primary) hypertension; E11.9 Type 2 diabetes mellitus without complications; D50.9 Iron deficiency anemia, unspecified; K21.9 Gastro-esophageal reflux disease without esophagitis; K44.9 Diaphragmatic hernia without obstruction or gangrene; F41.9 Anxiety disorder, unspecified; F32.9 Major depressive disorder, single episode, unspecified; Z79.01 Long term (current) use of anticoagulants; Z85.89 Personal history of malignant neoplasm of other organs and systems; K59.00 Constipation, unspecified; I35.0 Nonrheumatic aortic (valve) stenosis; R32 Unspecified urinary incontinence; Z16.12 Extended spectrum beta lactamase (ESBL) resistance; G47.33 Obstructive sleep apnea (adult) (pediatric); R19.7 Diarrhea, unspecified; F45.0 Somatization disorder
CPT/HCPCS: 36415; 74019; 76937; 80053; 81000; 82150; 83690; 83735; 85025; 87077; 87088; 87184; 87186; 87324; 87449; 93005

== ENCOUNTER 2018-10-18 12:08 | Day surgery (SDC) | payer MEDICARE ==
[2018-10-18] VITALS (14 sets, daily range): BP systolic 111–142; BP diastolic 59–72
[~2018-10-18 12:08] MED LIST changes: +RIVA20TA PO
[2018-10-18] MEDS ORDERED: PHENYLEPHRINE 100 MCG/ML 10 ML (ANESTHESIA) SYR ONE ×2 (13:02→15:01)
--- NOTE | 2018-10-18 15:38 | NUR ---
PRANAV SMITH admitted to room CU4-1, with an admitting diagnosis of Right side EP, on from via cart, accompanied by staff.PRANAV SMITH introduced to surroundings, call light, bed controls, phone, TV, temperature control, lights, meal times, smoking policy, visitor policy, side rail policy, bathrooms and showers. Patient Rights given to patient in the handbook. PRANAV SMITH verbalizes understanding that [facility] is not responsible for the loss or damage to any personal effects or valuables that are kept in the patients posession during their hospitalization. The following Patient Care Plans were discussed with the pt: Discharge Planning. PRANAV SMITH verbalizes understanding of Interdisciplinary Patient Education. Patient and/or family were informed about the Rapid Response Team and its purpose.
[2018-10-18] MEDS ORDERED: ONDANSETRON 4 MG/2 ML (SDV) Z0FRAN IVP PRN (15:45)
[2018-10-18] MEDS ORDERED: morphine INJ 10 MG/ML 1ML (SYR OR VIAL) IVP ONE (15:45)
[2018-10-18] MEDS ORDERED: SEVOFLURANE (ULTANE) 15 ML INHAL SOLN ONE (15:47)
[2018-10-18] MEDS ORDERED: PATIENT MAY USE OWN MEDS, ALL PO SCH (16:45)
[2018-10-18] MEDS ORDERED: NS IV 1000 ML 1,000 ML IV SCH (16:45)
[2018-10-18] MEDS ORDERED: CATHETER FLUSH 10 ML SYR IV PRN (17:15)
[2018-10-19] VITALS: BP 129/67
[2018-10-19 03:49] LABS: HEMOGLOBIN 9.5 G/DL (11.5-16.0); MEAN PLATELET VOLUME 9.6 FL (7.4-10.4); RED CELL DISTRIBUTION WIDTH 21.5 % (10.0-14.5); WHITE BLOOD COUNT 6.9 10^3/uL (4.3-11.0)
[2018-10-19 04:00] VITALS: BP 140/69
[2018-10-19 04:06] LABS: CALCIUM 8.6 MG/DL (8.5-10.1); CREATININE SERUM 0.93 MG/DL (0.60-1.30); POTASSIUM 3.4 MMOL/L (3.6-5.0)
[2018-10-19 08:00] VITALS: BP 122/54
--- NOTE | 2018-10-19 08:31 | Anesthesia-General Post-Op ---
General Patient Condition Mental Status/LOC: Same as Preop Cardiovascular: Satisfactory Nausea/Vomiting: Absent Respiratory: Satisfactory Pain: Controlled Complications: Absent Post Op Complications Complications None Follow Up Care/Instructions Patient Instructions None needed. Anesthesia/Patient Condition Patient Condition Patient is doing well, no complaints, stable vital signs, no apparent adverse anesthesia problems. No complications reported per nursing. RODNEY PARTIDA CRNA October 19, 2018 08:31
--- NOTE | 2018-10-19 13:05 | Cardiology Discharge Summary ---
Diagnosis/Chief Complaint Date of Admission 10/18/2018 Date of Discharge 10/19/2018 Admission Diagnosis Typical atrial flutter, paroxysmal atrial fibrillation Final/Discharge Diagnosis Typical atrial flutter ablation. Chief Complaint/HPI Chief Complaint/HPI This is a 68-year-old lady who initially presented with sepsis and severe GI bleeding. She was found to have atrial fibrillation with rapid ventricular rate. However oral anticoagulation was not given due to significant anemia. She was on amiodarone. She also had an episode of typical atrial flutter which degenerated into atrial fibrillation. We discussed at length with the patient and offered typical atrial flutter ablation. Discharge Summary Procedures Typical atrial flutter ablation. Discharge Physical Examination Unremarkable. Hospital Course Was the Problem List Reviewed?: Yes Unremarkable. Discussion & Recommendations Discussion Discharge instructions discussed at length with the patient. Follow up appt.: Dr. Martinez in 8 weeks. Dicharge Diet: Regular Diet Activity as Tolerated: Yes Home Medications Reviewed patient Home Medication Reconciliation performed by pharmacy medication reconciliations clinical pharmacy technician and/or nursing. Patients Allergies have been reviewed. Discharge Home Medications: Reviewed and agree with Discharge Medication list on patient's Discharge Instruction sheet Condition at discharge Discussed with the patient. Instructions to patient/family Discussed with the patient. Tracy MARTINEZ MD October 19, 2018 13:05
[2018-10-24] MEDS ORDERED: Bethanechol Chl PO ×2 (08:18)
[2018-10-24] MEDS ORDERED: LOSA100T57 PO ×2 (08:18)
[2018-10-24] MEDS ORDERED: SERT50TA9 PO ×2 (08:18)
[2018-10-24] MEDS ORDERED: HYDR25TA4 PO ×2 (08:18)
[2018-10-24] MEDS ORDERED: PROM25SU10 PR ×2 (08:18)
[2018-10-24] MEDS ORDERED: ALPR0.254 PO ×2 (08:18)
[2018-10-24] MEDS ORDERED: FAMO20TA5 PO ×2 (08:18)
== END 2018-10-19 12:36 ==
LOC: CATH 12:08 → ICU 15:49 → CATH 10-19 12:36
PROVIDERS: ATTEND Internal Medicine Interventional Cardiology
DX: I48.3 Typical atrial flutter (principal); I48.0 Paroxysmal atrial fibrillation; D64.9 Anemia, unspecified; Z87.19 Personal history of other diseases of the digestive system; Z79.899 Other long term (current) drug therapy
CPT/HCPCS: 36415; 80048; 85027; 93005; 93613; 93621; 93623; 93653

== ENCOUNTER 2019-01-09 08:37 | Day surgery (SDC) | payer MEDICARE ==
[~2019-01-09] VITALS: Ht 165.1 cm; Wt 72.6 kg
[~2019-01-09 08:37] MED LIST changes: +ALPR0.254 PO; +Bethanechol Chl PO; +CYAN-41 PO; -CYAN10006 PO; +FAMO20TA5 PO; +HYDR25TA4 PO; +LOSA100T57 PO; +POLY17PO6 PO; +PROM25SU10 PR
[2019-01-09] MEDS ORDERED: LIDOCAINE 1% INJ 20 ML 20 ML VIAL INJ ONE (08:45)
[2019-01-09] MEDS ORDERED: LIDOCAINE 1% INJ 20 ML 20 ML VIAL ONE (09:31)
[2019-01-09 09:32] VITALS: BP 131/67
--- NOTE | 2019-01-09 10:15 | Implantation of Loop Monitor ---
Implant of Loop Monitior PROCEDURE PHYSICIAN: Jay Martinez MD IMPLANTATION OF LOOP MONITOR REPORT DATE OF PROCEDURE: 01/09/19 PERFORMING PHYSICIAN: Dr. Rocco Martinez. INDICATION: Long-term surveillance of atrial fibrillation PREOP DIAGNOSIS: Long-term surveillance of atrial fibrillation POSTOP DIAGNOSIS: PAF s/p implantation of loop recorder. PROCEDURE DETAILS: The patient is a 68 year old female with history of paroxysmal atrial fibrillation requiring long-term surveillance. Therefore implantable loop recorder was discussed and agreed with the patient. Informed consent was taken. All risks and complications were discussed at length. The patient was draped and prepped in the usual sterile fashion. Local anesthesia was lidocaine, which was given in the substernal area close to the 4th intercostal space. Loop monitor was implanted according to the protocol. Steri-Strips were placed at the end of the procedure. There were no complications and the patient tolerated the procedure well. Voltage 0.35mV. ANESTHESIA: Local anesthesia with lidocaine. COMPLICATIONS: None CONTRAST/FLUOROSCOPY: None CONCLUSION: 1. Successful implantation of loop monitor for long-term surveillance of paroxysmal atrial fibrillation. 2. No complication and the patient tolerated the procedure well. Jay Martinez MD, RS, CCDS Cardiac Electrophysiology Tracy MARTINEZ MD Jan 09, 2019 10:15
--- NOTE | 2019-01-09 10:39 | NUR ---
Gave Pt and daughter discharge teaching over device and how to care for the site. Pt encouraged to call and make f/u appt in one week with Dr. Martinez.
== END 2019-01-09 10:43 ==
LOC: CATH 08:37
PROVIDERS: ATTEND Internal Medicine Interventional Cardiology
DX: I48.0 Paroxysmal atrial fibrillation (principal)
CPT/HCPCS: 33285

== ENCOUNTER → 2019-01-15 | Outpatient (CLI) | payer MEDICARE ==
[~2019-01-15] MED LIST changes: +RT-ALBUTEROL SULF 2.5 MG/3 ML PRE-MIX VIAL INH ONE
== END ==
LOC: RT 13:28
PROVIDERS: ATTEND Internal Medicine Critical Care Medicine
DX: I48.0 Paroxysmal atrial fibrillation (principal); G47.33 Obstructive sleep apnea (adult) (pediatric); E66.09 Other obesity due to excess calories; R53.83 Other fatigue
CPT/HCPCS: 94060; 94726; 94729

== ENCOUNTER → 2019-01-17 | Outpatient (CLI) | payer MEDICARE ==
[~2019-01-17] MED LIST changes: -RT-ALBUTEROL SULF 2.5 MG/3 ML PRE-MIX VIAL INH ONE
== END ==
LOC: SLEEP 20:03
PROVIDERS: ATTEND Nurse Practitioner Family
DX: G47.33 Obstructive sleep apnea (adult) (pediatric) (principal); I48.0 Paroxysmal atrial fibrillation; E66.09 Other obesity due to excess calories
CPT/HCPCS: 95810

== ENCOUNTER 2019-01-27 14:39 | Outpatient (RCR) | payer MEDICARE ==
[2018-12-09 11:25] LABS: BASOPHILS # (AUTO) 0.1 10^3/uL (0.0-0.1); BASOPHILS % (AUTO) 1 % (0-10); EOSINOPHILS # (AUTO) 0.1 10^3/uL (0.0-0.3); EOSINOPHILS % (AUTO) 2 % (0-10); HEMATOCRIT 36 % (35-52); HEMOGLOBIN 11.6 G/DL (11.5-16.0); LYMPHOCYTES # (AUTO) 2.7 X 10^3 (1.0-4.0); LYMPHOCYTES % (AUTO) 38 % (12-44); MEAN CORPUSCULAR HEMOGLOBIN 29 PG (25-34); MEAN CORPUSCULAR HGB CONC 32 G/DL (32-36); MEAN CORPUSCULAR VOLUME 91 FL (80-99); MEAN PLATELET VOLUME 10.5 FL (7.4-10.4); MONOCYTES # (AUTO) 0.5 X 10^3 (0.0-1.0); MONOCYTES % (AUTO) 7 % (0-12); NEUTROPHILS # (AUTO) 3.8 X 10^3 (1.8-7.8); NEUTROPHILS % (AUTO) 53 % (42-75); PLATELET COUNT 200 10^3/uL (130-400); RED CELL DISTRIBUTION WIDTH 20.8 % (10.0-14.5); WHITE BLOOD COUNT 7.2 10^3/uL (4.3-11.0)
[2018-12-09 11:45] LABS: ALBUMIN 3.6 GM/DL (3.2-4.5); BILIRUBIN,TOTAL 0.4 MG/DL (0.1-1.0); CALCIUM 9.1 MG/DL (8.5-10.1); CREATININE SERUM 1.19 MG/DL (0.60-1.30); TOTAL PROTEIN 7.4 GM/DL (6.4-8.2)
[2019-01-27 15:02] LABS: ABSOLUTE RETIC # 34 10e9/L (24-90); BASOPHILS % (AUTO) 1 % (0-10); EOSINOPHILS # (AUTO) 0.1 10^3/uL (0.0-0.3); EOSINOPHILS % (AUTO) 2 % (0-10); HEMATOCRIT 38 % (35-52); LYMPHOCYTES # (AUTO) 2.4 X 10^3 (1.0-4.0); LYMPHOCYTES % (AUTO) 39 % (12-44); MEAN CORPUSCULAR HEMOGLOBIN 30 PG (25-34); MEAN CORPUSCULAR HGB CONC 32 G/DL (32-36); MEAN CORPUSCULAR VOLUME 97 FL (80-99); MEAN PLATELET VOLUME 9.8 FL (7.4-10.4); MONOCYTES # (AUTO) 0.4 X 10^3 (0.0-1.0); MONOCYTES % (AUTO) 6 % (0-12); NEUTROPHILS # (AUTO) 3.3 X 10^3 (1.8-7.8); NEUTROPHILS % (AUTO) 53 % (42-75); PLATELET COUNT 234 10^3/uL (130-400); RED CELL DISTRIBUTION WIDTH 15.4 % (10.0-14.5); RETICULOCYTE % 0.85 % (0.50-2.40); WHITE BLOOD COUNT 6.3 10^3/uL (4.3-11.0)
[2019-01-27 15:23] LABS: ALBUMIN 3.9 GM/DL (3.2-4.5); BILIRUBIN,TOTAL 0.6 MG/DL (0.1-1.0); CALCIUM 9.5 MG/DL (8.5-10.1); CREATININE SERUM 1.01 MG/DL (0.60-1.30); POTASSIUM 4.1 MMOL/L (3.6-5.0)
== END 2019-03-09 | disposition home or self-care (01) ==
LOC: ONC 14:39
PROVIDERS: ATTEND Internal Medicine Hematology & Oncology
DX: D50.0 Iron deficiency anemia secondary to blood loss (chronic) (principal); K92.2 Gastrointestinal hemorrhage, unspecified; I48.0 Paroxysmal atrial fibrillation; I12.9 Hypertensive chronic kidney disease with stage 1 through stage 4 chronic kidney disease, or unspecified chronic kidney disease; N18.3 Chronic kidney disease, stage 3 (moderate); G47.30 Sleep apnea, unspecified; K59.00 Constipation, unspecified; Z79.899 Other long term (current) drug therapy
CPT/HCPCS: 36415; 80053; 82728; 85025; 85045; 99213

== ENCOUNTER → 2019-01-30 | Outpatient (CLI) | payer MEDICARE ==
[~2019-01-30] MED LIST changes: +CATHETER FLUSH 10 ML SYR IV PRN; +REGADENOSON 0.4 MG/5 ML SYR (LEXISCAN) IV ONE
[2019-01-30 09:27] VITALS: BP 199/76
--- NOTE | 2019-01-31 10:45 | Cardiology Stress Test Report ---
Stress Test Report Type of NM Stress Test: Test Type: LEXISCAN 0.4MG/5ML Date of Procedure/Referring: Date of Procedure: Jan 30, 2019 PCP Tracy Martinez MD Admitting Physician Joyce Sahu DO Indications: Paroxysmal atrial fibrillation Baseline Heart Rate: 66 Baseline Blood Pressure: Blood Pressure Systolic: 199 Blood Pressure Diastolic: 76 Baseline EKG: Baseline EKG: sinus rhythm Summary & Conclusion: Summary: The patient was brought to the stress lab after informed consent was taken. Stress test was performed according to the Lexiscan protocol. 0.4 mg of IV Lexiscan was given. Low-grade exercise was performed. Baseline EKG showed sinus rhythm at 66 BPM. Initial blood pressure was 200/95 mmHg. Maximum heart rate was 84 bpm and blood pressure 151/75 mmHg. Patient did not have any chest pain, arrhythmias or ST segment changes during the stress test. 10.57 mCi of Myoview were given for rest imaging and 30.1 mCi of Myoview given for stress imaging. Transient ischemic dilatation score 0.83, EF 77 percent. Normal wall motion. Normal myocardial perfusion imaging during rest and stress. Conclusion: Pharmacological stress test was negative for ischemia. Normal LV function with no wall motion abnormalities. Normal myocardial perfusion imaging during rest and stress. Tracy MARTINEZ MD Jan 31, 2019 10:45
== END ==
LOC: CARD 08:11
PROVIDERS: ATTEND Internal Medicine Interventional Cardiology
DX: I48.0 Paroxysmal atrial fibrillation (principal)
CPT/HCPCS: 78452; 93017

== ENCOUNTER 2019-02-19 20:50 | Outpatient (CLI) | payer MEDICARE ==
[~2019-02-19 20:50] MED LIST changes: -CATHETER FLUSH 10 ML SYR IV PRN; -REGADENOSON 0.4 MG/5 ML SYR (LEXISCAN) IV ONE
== END 2019-02-20 06:45 | disposition home or self-care (01) ==
LOC: SLEEP 20:50
PROVIDERS: ATTEND Nurse Practitioner Family
DX: G47.33 Obstructive sleep apnea (adult) (pediatric) (principal); G47.36 Sleep related hypoventilation in conditions classified elsewhere; I48.0 Paroxysmal atrial fibrillation; E66.09 Other obesity due to excess calories
CPT/HCPCS: 95811

== ENCOUNTER 2019-04-29 14:52 | Outpatient (RCR) | payer MEDICARE ==
[~2019-04-29 14:52] MED LIST changes: -METO-387; +MTP25TSR
[2019-04-29 15:07] LABS: ABSOLUTE RETIC # 26 10e9/L (24-90); BASOPHILS % (AUTO) 1 % (0-10); EOSINOPHILS # (AUTO) 0.1 10^3/uL (0.0-0.3); EOSINOPHILS % (AUTO) 2 % (0-10); HEMATOCRIT 37 % (35-52); LYMPHOCYTES # (AUTO) 2.5 X 10^3 (1.0-4.0); LYMPHOCYTES % (AUTO) 39 % (12-44); MEAN CORPUSCULAR HEMOGLOBIN 32 PG (25-34); MEAN CORPUSCULAR HGB CONC 33 G/DL (32-36); MEAN CORPUSCULAR VOLUME 96 FL (80-99); MEAN PLATELET VOLUME 10.2 FL (7.4-10.4); MONOCYTES # (AUTO) 0.4 X 10^3 (0.0-1.0); MONOCYTES % (AUTO) 6 % (0-12); NEUTROPHILS # (AUTO) 3.4 X 10^3 (1.8-7.8); NEUTROPHILS % (AUTO) 53 % (42-75); PLATELET COUNT 215 10^3/uL (130-400); RED CELL DISTRIBUTION WIDTH 13.7 % (10.0-14.5); RETICULOCYTE % 0.68 % (0.50-2.40); WHITE BLOOD COUNT 6.4 10^3/uL (4.3-11.0)
[2019-04-29 15:24] LABS: ALBUMIN 3.9 GM/DL (3.2-4.5); BILIRUBIN,TOTAL 0.4 MG/DL (0.1-1.0); CALCIUM 9.4 MG/DL (8.5-10.1); CREATININE SERUM 1.06 MG/DL (0.60-1.30); POTASSIUM 4.2 MMOL/L (3.6-5.0); TOTAL PROTEIN 7.5 GM/DL (6.4-8.2)
== END 2019-07-25 15:08 | disposition home or self-care (01) ==
LOC: ONC 14:52
PROVIDERS: ATTEND Internal Medicine Hematology & Oncology
DX: D50.0 Iron deficiency anemia secondary to blood loss (chronic) (principal); K92.2 Gastrointestinal hemorrhage, unspecified; I48.0 Paroxysmal atrial fibrillation; I12.9 Hypertensive chronic kidney disease with stage 1 through stage 4 chronic kidney disease, or unspecified chronic kidney disease; N18.3 Chronic kidney disease, stage 3 (moderate); G47.30 Sleep apnea, unspecified; K59.00 Constipation, unspecified; D63.1 Anemia in chronic kidney disease; Z79.899 Other long term (current) drug therapy; Z86.2 Personal history of diseases of the blood and blood-forming organs and certain disorders involving the immune mechanism; Z85.848 Personal history of malignant neoplasm of other parts of nervous tissue
CPT/HCPCS: 36415; 80053; 82728; 85025; 85045; 99213

== ENCOUNTER → 2019-11-04 | Outpatient (CLI) | payer MEDICARE ==
[~2019-11-04] MED LIST changes: +ONDA-105 PO; -ONDA4TAB10 PO
== END ==
LOC: LABNPT 17:13
PROVIDERS: ATTEND Family Medicine
DX: E55.9 Vitamin D deficiency, unspecified (principal)
CPT/HCPCS: 82306

== ENCOUNTER → 2019-11-04 | Outpatient (CLI) | payer MEDICARE ==
[2019-11-04 11:10] LABS: ABSOLUTE RETIC # 35 10e9/L (24-90); BASOPHILS % (AUTO) 1 % (0-10); EOSINOPHILS # (AUTO) 0.1 10^3/uL (0.0-0.3); EOSINOPHILS % (AUTO) 2 % (0-10); HEMATOCRIT 38 % (35-52); HEMOGLOBIN 12.6 G/DL (11.5-16.0); LYMPHOCYTES # (AUTO) 2.2 X 10^3 (1.0-4.0); LYMPHOCYTES % (AUTO) 36 % (12-44); MEAN CORPUSCULAR HEMOGLOBIN 31 PG (25-34); MEAN CORPUSCULAR HGB CONC 33 G/DL (32-36); MEAN CORPUSCULAR VOLUME 95 FL (80-99); MEAN PLATELET VOLUME 9.9 FL (7.4-10.4); MONOCYTES # (AUTO) 0.5 X 10^3 (0.0-1.0); MONOCYTES % (AUTO) 8 % (0-12); NEUTROPHILS # (AUTO) 3.2 X 10^3 (1.8-7.8); NEUTROPHILS % (AUTO) 54 % (42-75); PLATELET COUNT 219 10^3/uL (130-400); RED CELL DISTRIBUTION WIDTH 13.9 % (10.0-14.5); RETICULOCYTE % 0.87 % (0.50-2.40)
[2019-11-04 11:46] LABS: ALBUMIN 4.1 GM/DL (3.2-4.5); BILIRUBIN,TOTAL 0.4 MG/DL (0.1-1.0); CALCIUM 9.2 MG/DL (8.5-10.1); CREATININE SERUM 1.26 MG/DL (0.60-1.30); POTASSIUM 4.2 MMOL/L (3.6-5.0); TOTAL PROTEIN 7.9 GM/DL (6.4-8.2)
== END ==
LOC: EDSTATUS 07-29 09:15 → ONC 11:01
PROVIDERS: ATTEND Internal Medicine Hematology & Oncology
DX: D50.0 Iron deficiency anemia secondary to blood loss (chronic) (principal); K92.2 Gastrointestinal hemorrhage, unspecified; I48.0 Paroxysmal atrial fibrillation; I12.9 Hypertensive chronic kidney disease with stage 1 through stage 4 chronic kidney disease, or unspecified chronic kidney disease; N18.3 Chronic kidney disease, stage 3 (moderate); G47.30 Sleep apnea, unspecified; K59.00 Constipation, unspecified; D63.1 Anemia in chronic kidney disease; E78.2 Mixed hyperlipidemia; Z79.899 Other long term (current) drug therapy; Z86.2 Personal history of diseases of the blood and blood-forming organs and certain disorders involving the immune mechanism; Z85.848 Personal history of malignant neoplasm of other parts of nervous tissue
CPT/HCPCS: 80053; 82728; 85025; 85045; 99213

== ENCOUNTER → 2020-02-10 | Outpatient (CLI) | payer MEDICARE | LOC: CARD 13:43 | PROVIDERS: ATTEND Internal Medicine Cardiovascular Disease | DX: I08.0 Rheumatic disorders of both mitral and aortic valves (principal); I10 Essential (primary) hypertension; I48.0 Paroxysmal atrial fibrillation; K21.9 Gastro-esophageal reflux disease without esophagitis | CPT/HCPCS: 93306 ==

== ENCOUNTER → 2020-03-10 | Outpatient (CLI) | payer MEDICARE ==
[~2020-03-10] MED LIST changes: -ALPR0.254 PO; -PANT40TA3 PO; +PANT40TA52 PO
--- NOTE | 2020-03-10 14:39 | Diagnostic Imaging Report ---
EXAMINATION: CT Abdomen without intravenous contrast. TECHNIQUE: Multiple contiguous axial images were obtained through the abdomen without the administration of intravenous contrast. All CT scans use one or more of the following dose optimizing techniques: automated exposure control, MA and/or KvP adjustment based on a patient size and exam type, or iterative reconstruction. HISTORY: PANCREATIC CYST/MASS COMPARISON: 09/16/2018. FINDINGS: Limited views of the lower thorax show a loop recorder. The liver is normal without focal lesion. There is no biliary ductal dilation. Gallbladder is surgically absent. There is intraluminal gas within the pancreatic head and near the gallbladder fossa. It is difficult to differentiate structures in this location. Findings favored to reflect diverticulum or an ulcer. Previously seen fluid attenuating lesion in the pancreatic head is not apparent on noncontrast CT. Spleen is normal. Adrenal glands are normal. The kidneys are normal. There is no hydronephrosis. Visualized bowel is normal in caliber without obstruction or inflammation. No free fluid or air. No abdominal lymphadenopathy. Aorta is normal in caliber without aneurysm. There are no suspicious osseous lesions. There has been posterior decompression with non-instrumented fusion. Bones are heterogeneous, likely due to osteoporosis. There is vertebroplasty of L1. IMPRESSION: 1. Previously seen fluid attenuating lesion in the pancreatic head is not apparent on noncontrast CT. Pancreas protocol is recommended for further evaluation. 2. Abnormal distribution of gas in the duodenum and near the pancreatic head suggestive of either an ulcer or a duodenal diverticulum. Dictated by: Dictated on workstation # [id number]
== END ==
LOC: RAD 12:44
PROVIDERS: ATTEND Family Medicine
DX: K86.2 Cyst of pancreas (principal); K86.89 Other specified diseases of pancreas
CPT/HCPCS: 74150

== ENCOUNTER → 2020-04-19 | Outpatient (CLI) | payer MEDICARE ==
[~2020-04-19] MED LIST changes: -MULT-17 PO; +MULT-18 PO
[2020-04-19 11:41] LABS: ABSOLUTE RETIC # 36 10e9/uL (24-90); BASOPHILS # (AUTO) 0.1 10^3/uL (0.0-0.1); BASOPHILS % (AUTO) 1 % (0-10); EOSINOPHILS # (AUTO) 0.1 10^3/uL (0.0-0.3); EOSINOPHILS % (AUTO) 2 % (0-10); HEMATOCRIT 45 % (35-52); HEMOGLOBIN 14.6 g/dL (11.5-16.0); LYMPHOCYTES # (AUTO) 2.4 10^3/uL (1.0-4.0); LYMPHOCYTES % (AUTO) 46 % (12-44); MEAN CORPUSCULAR HEMOGLOBIN 31 pg (25-34); MEAN CORPUSCULAR HGB CONC 33 g/dL (32-36); MEAN CORPUSCULAR VOLUME 95 fL (80-99); MONOCYTES # (AUTO) 0.4 10^3/uL (0.0-1.0); MONOCYTES % (AUTO) 8 % (0-12); NEUTROPHILS # (AUTO) 2.3 10^3/uL (1.8-7.8); NEUTROPHILS % (AUTO) 44 % (42-75); PLATELET COUNT 205 10^3/uL (130-400); RETICULOCYTE % 0.76 % (0.50-2.40); WHITE BLOOD COUNT 5.3 10^3/uL (4.3-11.0)
[2020-04-19 12:02] LABS: ALBUMIN 4.3 GM/DL (3.2-4.5); BILIRUBIN,TOTAL 0.7 MG/DL (0.1-1.0); CALCIUM 9.7 MG/DL (8.5-10.1); CREATININE SERUM 1.09 MG/DL (0.60-1.30); POTASSIUM 3.8 MMOL/L (3.6-5.0); TOTAL PROTEIN 8.3 GM/DL (6.4-8.2)
== END ==
LOC: ONC 11:08
PROVIDERS: ATTEND Internal Medicine Hematology & Oncology
DX: D50.0 Iron deficiency anemia secondary to blood loss (chronic) (principal); I10 Essential (primary) hypertension; E78.2 Mixed hyperlipidemia; I48.0 Paroxysmal atrial fibrillation; I35.9 Nonrheumatic aortic valve disorder, unspecified
CPT/HCPCS: 80053; 82728; 85025; 85045; G0463; 99213

== ENCOUNTER → 2020-05-19 | Outpatient (CLI) | payer MEDICARE ==
--- NOTE | 2020-05-19 12:52 | Diagnostic Imaging Report ---
INDICATION: Pelvic pain status post recent fall. COMPARISON: None FINDINGS: A single AP view of the pelvis was performed. There is no radiographic evidence of acute fracture or dislocation. Pubic symphysis is within normal limits. SI joints are symmetric. Proximal femurs are intact, bilaterally. The femoro-acetabular joint spaces appear maintained on this single frontal view. Remainder of the bony pelvis is intact as well. No unexpected radiopaque foreign bodies are seen. Included small bowel loops are nondistended. Postsurgical changes of the lower lumbar spine are noted. Impression: 1. No radiographic evidence of acute fracture or dislocation of the bony pelvis. Dictated by: Dictated on workstation # [id number]
== END ==
LOC: RAD 12:17
PROVIDERS: ATTEND Family Medicine
DX: R10.2 Pelvic and perineal pain (principal)
CPT/HCPCS: 72170

== ENCOUNTER → 2021-04-21 | Outpatient (CLI) | payer MEDICARE ==
[~2021-04-21] MED LIST changes: -LISI10TA2 PO; +LISI10TA25 PO; +SERT-413 PO; -SERT50TA9 PO
[2021-04-21 13:17] LABS: BASOPHILS % (AUTO) 1 % (0-10); EOSINOPHILS # (AUTO) 0.1 10^3/uL (0.0-0.3); EOSINOPHILS % (AUTO) 2 % (0-10); HEMATOCRIT 39 % (35-52); HEMOGLOBIN 12.9 g/dL (11.5-16.0); LYMPHOCYTES # (AUTO) 2.3 10^3/uL (1.0-4.0); LYMPHOCYTES % (AUTO) 36 % (12-44); MEAN CORPUSCULAR HEMOGLOBIN 32 pg (25-34); MEAN CORPUSCULAR HGB CONC 33 g/dL (32-36); MEAN CORPUSCULAR VOLUME 96 fL (80-99); MONOCYTES # (AUTO) 0.4 10^3/uL (0.0-1.0); MONOCYTES % (AUTO) 6 % (0-12); NEUTROPHILS # (AUTO) 3.5 10^3/uL (1.8-7.8); NEUTROPHILS % (AUTO) 55 % (42-75); PLATELET COUNT 247 10^3/uL (130-400); WHITE BLOOD COUNT 6.4 10^3/uL (4.3-11.0)
[2021-04-21 13:34] LABS: ALBUMIN 4.1 GM/DL (3.2-4.5); BILIRUBIN,TOTAL 0.6 MG/DL (0.1-1.0); CALCIUM 9.7 MG/DL (8.5-10.1); CREATININE SERUM 0.99 MG/DL (0.60-1.30); POTASSIUM 3.7 MMOL/L (3.6-5.0); TOTAL PROTEIN 7.7 GM/DL (6.4-8.2)
== END ==
LOC: ONC 13:06
PROVIDERS: ATTEND Internal Medicine Hematology & Oncology
DX: D50.0 Iron deficiency anemia secondary to blood loss (chronic) (principal); I48.0 Paroxysmal atrial fibrillation; I12.9 Hypertensive chronic kidney disease with stage 1 through stage 4 chronic kidney disease, or unspecified chronic kidney disease; N18.30 Chronic kidney disease, stage 3 unspecified; E66.9 Obesity, unspecified; Z79.899 Other long term (current) drug therapy; Z92.3 Personal history of irradiation
CPT/HCPCS: 80053; 82728; 85025; G0463; 99213